=== PATIENT | male | born 1940 | race Caucasian/White ===

== ENCOUNTER 2020-09-10 10:12 | Emergency (ER) | payer MEDICARE, SELFPAY ==
--- NOTE | 2020-09-10 10:17 | ED.EAR ---
HPI - Ear Problem General Chief complaint: Ear Stated complaint: ear infection Time Seen by Provider: 09/10/20 10:26 Source: patient and RN notes reviewed Mode of arrival: ambulatory Limitations: no limitations History of Present Illness HPI Narrative: 80-year-old male presents with concern for intermittent bilateral ear pain. Denies current pain. Denies nasal congestion. Reports rhinorrhea. Denies any drainage from either ear, denies changes in hearing. MD Complaint: ear pain Related Data Home Medications Medication Instructions Recorded Confirmed indapamide 1.25 mg DAILY 09/10/20 09/10/20 lisinopril 20 mg DAILY 09/10/20 09/10/20 metoprolol succinate 50 mg PO DAILY 09/10/20 09/10/20 simvastatin 40 mg DAILY 09/10/20 09/10/20 Allergies Allergy/AdvReac Type Severity Reaction Status Date / Time codeine Allergy Mild LIPS SWELL Unverified 09/12/15 08:12 Sulfa (Sulfonamide Allergy Mild LIPS Unverified 09/12/15 08:12 Antibiotics) SWELLING tetracycline Allergy Unknown UNSURE OF Unverified 09/12/15 08:12 REACTION CYCLINES Allergy Mild Uncoded 09/12/15 08:12 Wheat Allergy Mild Uncoded 09/12/15 08:12 Review of Systems Review of Systems: Narrative: CONSTITUTIONAL: Denies malaise, chills, sweats, or fever. EYES: Denies visual changes, redness, or discharge. ENT: Reports rhinorrhea, bilateral intermittent otalgia. Denies congestion, sinus pain, and sore throat. CARDIOVASCULAR: Denies chest pain, palpitations, or edema. RESPIRATORY: Denies cough or dyspnea. GASTROINTESTINAL: Denies abdominal pain, nausea, vomiting, diarrhea SKIN: Denies rash or itching. MUSCULOSKELETAL: Denies myalgia. NEUROLOGIC: Denies headache. All systems reviewed & are unremarkable except as noted in HPI and below PMFSH Social History Social History Gender identity (if verbalized by the patient): Male Comments At time of signature, agree with nursing past medical, surgical, social and family history. There is no relevant family history pertinent to the presenting complaint Exam Narrative: Exam Narrative: GENERAL: Well-appearing, well-nourished, and in no acute distress. HEAD: Normocephalic EYES: PERRLA, conjunctivae clear ENT: Nares clear, turbinates erythematous, clear discharge. Mucous membranes moist. TM pearly gaytan with dull light reflex bilaterally; no tragal tenderness, no auditory canal erythema, edema, no drainage. Oropharynx not erythematous without lesions. Tonsils not enlarged and without exudate, no drooling, no hoarseness, no trismus, uvula midline. NECK: Supple. No lymphadenopathy CHEST: No respiratory distress, speaks in full sentences. HEART: Regular rate and rhythm. No murmur heard. SKIN: Warm, dry, no rash. NEURO: Alert and oriented x3. PSYCH: Normal mood and affect Course Course Emergency Course: Patient is aware of diagnosis, understands and agrees to treatment plan. Anticipatory guidance given. Patient agrees to follow-up as directed and is aware of reasons to seek care at the emergency department. Portions of this record may have been created with voice recognition software Vital Signs Vital signs: Vital Signs Temperature 98.9 F 09/10/20 10:26 Pulse Rate 97 09/10/20 10:26 Respiratory Rate 20 09/10/20 10:26 Blood Pressure 147/84 H 09/10/20 10:26 Pulse Oximetry 97 09/10/20 10:26 Temperature 98.9 F 09/10/20 10:26 Pulse Rate 97 09/10/20 10:26 Respiratory Rate 20 09/10/20 10:26 Blood Pressure 147/84 H 09/10/20 10:26 Pulse Oximetry 97 09/10/20 10:26 Reviewed. Medical Decision Making MDM Narrative Medical decision making narrative: Differential diagnosis considered: Gonsalez virus, strep pharyngitis, allergic rhinitis, upper respiratory tract infection, sinusitis, rhinosinusitis, nasopharyngitis. viral pharyngitis, otitis media, otitis externa, pneumonia, bronchitis, viral cough syndrome, viral syndrome, and influenza. Exam findings show no acute concerns or changes; patient is no
[2020-09-10 10:26] VITALS: BP 147/84; PULSE 97; RESP 20; TEMP 37.2; O2SAT 97
== END 2020-09-10 10:41 | disposition home or self-care (01) ==
PROVIDERS: Emergency Provider Nurse Practitioner; PCP Family Medicine
DX: H65.193 Other acute nonsuppurative otitis media, bilateral (principal); I11.0 Hypertensive heart disease with heart failure; I50.9 Heart failure, unspecified; E78.00 Pure hypercholesterolemia, unspecified
CPT/HCPCS: 99211; G0463

== ENCOUNTER 2021-01-01 15:55 | Observation (INO) | payer MEDICARE, SELFPAY ==
[2021-01-01] VITALS (22 sets, daily range): BP systolic 107–141; BP diastolic 78–123; PULSE 76–153; RESP 18–30; TEMP 36.6; O2SAT 93–99
--- NOTE | ~2021-01-01 | XR_ITS ---
EXAMINATION: XR chest 2V DATE: 01/01/2021 16:15 INDICATION: Shortness of breath. TECHNIQUE: Frontal and lateral views of the chest were obtained. COMPARISON: Chest 2 views 07/07/2006, chest CT 04/14/2005 FINDINGS: There is symmetric scarring at the lung apices. A calcified left lung nodule is consistent with old granulomatous disease. There is a small right pleural effusion. No pneumothorax. The heart s ize is normal. IMPRESSION: 1. Small right pleural effusion. 2. Chronic scarring at the lung apices. Reviewed, dictated and finalized at location A.
--- NOTE | 2021-01-01 15:57 | ECG_ITS ---
Measurements Intervals [place] Rate: 153 P: LA: 0 QRS: 23 QRSD: 81 T: 32 QT: 268 QTc: 428 Interpretive Statements ATRIAL FIBRILLATION WITH RAPID VENTRICULAR RESPONSE VENTRICULAR PREMATURE COMPLEX NONSPECIFIC T-WAVE ABNORMALITY- INFERIOR LEADS ABNORMAL ECG Electronically Signed On 01-01-2021 19:13:37 CDT by Jass Tran D.O.
[2021-01-01 16:43] LABS: Basophils Percent Auto 0.5 % (0.2-1.2); Eosinophils Percent Auto 0.5 % (0-4.4); Hematocrit 43.1 % (42.0-52.0); Hemoglobin 14.3 g/dL (14.0-18.0); Immature Granulocyte Absolute 0.01 K/mm3 (0.00-0.031); Immature Granulocyte Percent A 0.2 % (0-0.5); Lymphocytes Absolute Auto 1.28 K/mm3 (0.9-3.2); Mean Corpuscular HGB Conc 33.2 g/dl (32-36); Mean Corpuscular Hemoglobin 30.4 pg (26-34); Mean Corpuscular Volume 91.5 fl (80-100); Mean Platelet Volume 12.3 fl (7.4-10.4); Monocytes Absolute Auto 0.4 K/mm3 (0.1-0.6); Monocytes Percent Auto 7.1 % (2.6-8.5); Neutrophils Absolute Auto 4.1 K/mm3 (1.3-6.7); Neutrophils Percent Auto 69.7 % (45.5-73.1); Platelet Count Result 139 k/mm3 (150-375); Red Blood Count 4.71 M/mm3 (4.6-6.20); Red Cell Distribution Width 13.4 % (11.5-14.5); White Blood Count 5.8 K/mm3 (4.5-10.0)
[2021-01-01 16:52] LABS: INR 1.1
[2021-01-01 16:53] LABS: Partial Thromboplastin Time 29.4 SECONDS (22.3-36.8)
[2021-01-01] MEDS: dilTIAZem HCl INJ 25 MG/5 ML VIAL IV PUSH (16:53)
[2021-01-01 16:55] LABS: Anion Gap 12 mmol/L (8-16); Blood Urea Nitrogen 16 mg/dL (9-20); Calcium 9.7 mg/dL (8.4-10.2); Carbon Dioxide 21 mmol/L (22-30); Chloride 106 mmol/L (98-107); Estimated CRCL calculation 69 ml/min; Estimated Glomerular Filt Rate > 60; Glucose 121 mg/dL (75-110); Potassium 4.1 mmol/L (3.4-5.0); Sodium 139 mmol/L (137-145)
--- NOTE | 2021-01-01 16:57 | ED.GENADULT ---
HPI - General Adult General Chief complaint: Chest Pain Stated complaint: palpitations Time Seen by Provider: 01/01/21 16:18 Source: patient History of Present Illness HPI narrative: Patient is a 80 y/o male complaining of mild SOB for 2 weeks. He state that his symptom is worsened by exertion. He has a chronic cough due to smoking. He has no chest pain or fever. He also feels tired. He check his pulse with home pulse ox and found that his heart is fast. He was instructed by PCP to come to ED for evaluation. Related Data Allergies Allergy/AdvReac Type Severity Reaction Status Date / Time codeine Allergy Unknown Verified 01/01/21 16:52 Sulfa (Sulfonamide Allergy Unknown Verified 01/01/21 16:52 Antibiotics) Review of Systems Constitutional: Constitutional: Denies chills, Reports fatigue, Denies fever(s), Denies headache(s) and Reports weakness Eyes: Eyes: Denies blurry vision ENT: Denies headache(s) and Denies neck pain Cardiovascular: Cardiovascular: Denies chest pain and Reports dyspnea Respiratory: Respiratory: Denies cough and Denies dyspnea Gastrointestinal: Gastrointestinal: Denies abdominal pain, Denies diarrhea, Denies nausea and Denies vomiting Genitourinary: Genitourinary: Denies hematuria and Denies dysuria Musculoskeletal: Musculoskeletal: Denies back pain and Denies neck pain Neurologic: Denies headache(s) and Denies weakness Exam Const: General: no acute distress and well developed Orientation/consciousness: oriented to person, oriented to place, oriented to time and patient oriented x3 HENMT: Head: normocephalic Ears: external ears normal General nose exam: Normal external nose present Eyes: General: appearance normal, both eyes and all related structures Conjunctivae: conjunctivae normal Neck: Neck: normal visual inspection and full ROM Chest: Chest palpation & inspection: normal inspection of the chest and no tenderness Resp: Effort & Inspection: normal respiratory effort Auscultation: clear to auscultation bilaterally Cardio: Rate: tachycardic Rhythm: abnormal rhythm irregularly irregular GI: GI Palp: No abdominal tenderness and Yes Soft to palpation Skin: General skin exam: normal color and turgor normal Neuro: General: oriented to person, oriented to place, oriented to time and patient oriented x3 Cognition (Neuro): normal cognition Extrem: General: normal to inspection, full ROM and no pedal edema Psych: Appearance: grossly normal Mental Status: mental status grossly normal Affect: normal affect Course Consultations Consultation #1: Discussed with MARJORIE Tim, who agrees to admit. Date: 01/01/21 Time: 18:16 Consultation #2: Discussed with Dr. Ramon, who agrees to consult. She recommends Lovenox 1mg/kg x 1 dose Date: 01/01/21 Time: 19:20 Vital Signs Vital signs: Vital Signs Temperature 36.6 C 01/01/21 16:06 Pulse Rate 153 H 01/01/21 16:06 Respiratory Rate 18 01/01/21 16:06 Blood Pressure 141/103 H 01/01/21 16:06 Pulse Oximetry 98 01/01/21 16:06 Temperature 36.6 C 01/01/21 16:06 Pulse Rate 89 01/01/21 19:41 Respiratory Rate 28 H 01/01/21 19:41 Blood Pressure 122/80 01/01/21 19:41 Pulse Oximetry 93 01/01/21 19:41 Medical Decision Making Vital Signs Vital Signs: Vital Signs Temperature 36.6 C 01/01/21 16:06 Pulse Rate 153 H 01/01/21 16:06 Respiratory Rate 18 01/01/21 16:06 Blood Pressure 141/103 H 01/01/21 16:06 Pulse Oximetry 98 01/01/21 16:06 Temperature 36.6 C 01/01/21 16:06 Pulse Rate 89 01/01/21 19:41 Respiratory Rate 28 H 01/01/21 19:41 Blood Pressure 122/80 01/01/21 19:41 Pulse Oximetry 93 01/01/21 19:41 Lab Data Result diagrams: 01/01/21 16:34 01/01/21 16:34 Labs: Lab Results 01/01/21 01/01/21 01/01/21 Range/Units 16:34 16:34 16:34 WBC 5.8 (4.5-10.0) K/mm3 RBC 4.71 (4.6-6.20) M/mm3 Hgb 14.3 (14.0-18.0) g/dL Hct 43.1 (42.0
[2021-01-01 17:08] LABS: Troponin I 0.014 ng/mL (0.000-0.034)
[2021-01-01] MEDS: ENOXAPARIN 80 MG/0.8 ML SYRINGE SUB-Q (19:34)
[2021-01-01 19:40] LABS: NT Pro B Type Natriuretic Pept 2680 pg/mL (5-100); Troponin I 0.018 ng/mL (0.000-0.034)
[2021-01-01] MEDS: FUROSEMIDE INJ 40 MG/4 ML VIAL IV PUSH (19:59)
--- NOTE | 2021-01-01 20:20 | ADMGEN ---
This patient, Lm Jimenez, was admitted to IMU Room 202-01 at 2015. Patient/family oriented to hospital policies and general routines including ID bracelet, bed and alarms, visiting hours, pain management, procedures, bathroom and other care routines, personal items, smoking policy, room service/diet, and visiting hours. Information on how to activate the Rapid Response Team has been discussed. Patient/Family are encouraged to report perceived risks to care and to ask questions if they do not understand what they are told or what they should do. Patient walked to restroom with 1 person assist. Gait steady.
[2021-01-02] VITALS (15 sets, daily range): BP systolic 97–139; BP diastolic 65–97; PULSE 77–130; RESP 18–20; TEMP 36.3–36.7; O2SAT 95–99
--- NOTE | 2021-01-02 | ECHO_ITS ---
Patient Info Name: Lm Jimenez Age: 80 years : 1940 Gender: Male Ht: 71 in Wt: 180 lbs BSA: 2.03 m2 HR: 111 bpm BP: 122 / 65 mmHg Heart Rhythm: Atrial Fibrillation, Tachycardia Technical Quality: Good Exam Date: 01/02/2021 1:10 PM Exam Location: [facility] Patient Status: Outpatient Admit Date: 01/01/2021 Staff Ordering Physician: Meeta Lindo NP Outside Plant Cable Engineer: Tyree Retana, KRYSTLE, RT Attending Provider: Ozzie Nguyen MD Referring Physician: Guicho NAYAK; Exam Type: CA echo doppler color flow Study Info Indications R06.02 - Shortness of breath Complete two-dimensional, color flow and Doppler transthoracic echocardiogram is performed. Strain analysis performed. Summary 1. Complete two-dimensional, color flow and Doppler transthoracic echocardiogram is performed. 2. Left ventricular systolic function is moderately reduced, estimated at 40-45%. 3. There is no increased left ventricular wall thickness. 4. The left ventricular diastolic function is indeterminate. 5. Global longitudinal strain is moderately elevated at -9 %. 6. Left atrial chamber dimension is moderately enlarged. 7. Right atrial chamber dimension is severely enlarged. 8. There is moderate mitral valve regurgitation. 9. There is mild to moderate tricuspid valve regurgitation. 10. No pulmonary hypertension, estimated pulmonary arterial systolic pressure is 29 mmHg. 11. Normal inferior vena cava with >50% collapse upon inspiration consistent with normal right atrial pressure, 5 mmHg. 12. There is small pericardial effusion. Left Ventricle Left ventricular chamber dimension is normal. Left ventricular systolic function is moderately reduced, estimated at 40-45%. There is no increased left ventricular wall thickness. The left ventricular diastolic function is indeterminate. Global longitudinal strain is moderately elevated at -9 %. Right Ventricle Right ventricular chamber dimension is normal. Right ventricular systolic function is normal. Left Atria Left atrial chamber dimension is moderately enlarged. Right Atria Right atrial chamber dimension is severely enlarged. Aortic Valve The aortic valve is trileaflet. There is mild aortic valve sclerosis. There is no aortic valve stenosis. There is trace aortic valve regurgitation. Pulmonic Valve The pulmonic valve is not well visualized. There is trace pulmonic regurgitation. Mitral Valve The mitral valve has thickened leaflets. There is moderate mitral valve regurgitation. The mitral valve annulus is mildly calcified. Tricuspid Valve The tricuspid valve leaflets are normal. There is mild to moderate tricuspid valve regurgitation. No pulmonary hypertension, estimated pulmonary arterial systolic pressure is 29 mmHg. Pericardium/Pleural The pericardium appears normal. There is small pericardial effusion. Inferior Vena Cava Normal inferior vena cava with >50% collapse upon inspiration consistent with normal right atrial pressure, 5 mmHg. Aorta The aortic root size at the sinus of Valsalva is normal. Left Ventricular Outflow Tract Name Value Normal LVOT 2D LVOT Diameter 2.1 cm LVOT Doppler
--- NOTE | 2021-01-02 | PM.IMHP ---
H&P: HPI History of Present Illness Date/Time: 01/01/21 [id number] this is a 80-year-old male patient who stated that he had an episode of atrial fibrillation years ago after an he had pneumonia. The patient stated he was given some medication and he converted back to sinus rhythm. He did not notice irregular rhythm since then. He stated he may have gone in and out of it but it has never bothered him. 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 The patient stated that he has been short of breath for 2 weeks. Mostly with exertion. He has a chronic cough. He has no complaints of any chest pain or fever. He just feels tired. The patient checked his pulse ox at home and found that his heart rate was fast. He was instructed by his primary care doctor to come to the emergency room. The patient was found to be in AFib with RVR. His heart rate initially was in the 150s. He was given IV Cardizem and then started on a drip. His heart rate is now in the 80s he denies any chest pain or shortness breath at this time. The patient stated that he has not slept very well the last couple nights. The patient is very irritable at this time and wishes that I not ask him some any questions. He suggested that I retrieve my information from what they have already acquired. His BNP is 2680. The patient does not remember having an echo in the past. He does not recall seeing and finish machine tender either. Patient stated that he does take medication for blood pressure but does not want to take any medicine tonight. The patient stated that he would like to leave by tomorrow. I explained that the finish machine tender has been consulted in that I prefer that he see the finish machine tender prior to exiting the hospital. I also explained to the patient if he left that he would be signing out against medical advice.. Right chronic scarring at the lung apices. The patient was given aspirin Cardizem Lovenox and Lasix in the emergency room. Patient is being admitted to observation status as on the date of service of 01/01/2021. Chief Complaint: sob with exertion Review of Systems Review of Systems: All systems reviewed & are unremarkable except as noted in HPI and below Constitutional: Constitutional: Reports as per HPI and Reports no additional constitutional complaints Eyes: Eyes: Reports as per HPI and Reports no additional eye complaints ENT: Reports system reviewed and no additional complaints, except as documented and Reports Normal hearing present Cardiovascular: Cardiovascular: Reports no additional cardiovascular complaints Respiratory: Respiratory: Reports no additional respiratory complaints and Reports no additional respiratory complaints Gastrointestinal: Gastrointestinal: Reports as per HPI and Reports no additional gastrointestinal complaints Musculoskeletal: Musculoskeletal: Reports no additional musculoskeletal complaints Integumentary/Breasts: Skin/Breast: Reports system reviewed and no additional complaints, except as docu and Reports as per HPI Neurologic: Reports system reviewed and no additional complaints, except as documented, Reports as per HPI and Reports Normal hearing present Psychiatric: Psychiatric: Reports no additional psychiatric complaints and Reports as per HPI Endocrine: Endocrine: Reports no additional endocrine complaints Hematologic/Lymphatic: Hematologic/Lymphatic: Reports no additional hematologic/lymphatic complaints Allergic/Immunologic: Allergic/Immunologic: Reports no additional allergic/immunologic complaints [facility] Past Medical History Medical History (Updated 01/02/21 @ 00:09 by Meeta Lindo NP) Blindness of right eye Colon cancer Hyperlipidemia Hypertension Surgical History Surgical History (Updated 01/02/21 @ 00:10 by Meeta Lindo NP) H/O colectomy History of appendectomy History of tonsillectomy Family History Family History Mother Cancer Father Cirrhosis Alcoh
--- NOTE | 2021-01-02 03:09 | PC.NURSE ---
PATIENT CALLED OUT C/O PAIN IN HIS PENIS, AND NOT BEING ABLE TO URINATE. STATING THAT THE LAST FEW TIMES HE TRIED TO GO, HE WAS UNABLE TO. PATIENT ALSO STATED THAT HE FEELS LIKE HE STILL NEEDS TO GO. BLADDER SCAN SHOWED [phone] VASQUES IS AWARE. ORDERS CHARTED.
[2021-01-02] MEDS: ENOXAPARIN 80 MG/0.8 ML SYRINGE SUB-Q (09:31)
--- NOTE | 2021-01-02 09:51 | PM.CNCAR ---
Assessment and Plan Assessment and plan (1) Atrial fibrillation with RVR: Code(s): I48.91 - Unspecified atrial fibrillation Status: Acute Assessment and Plan: Symptomatic atrial fibrillation with rapid ventricular response for at least the past couple weeks progressive fatigue, shortness of breath and mild heart failure symptoms. Heart rate better controlled on intravenous diltiazem. Transition off to oral metoprolol 100 mg b.i.d. then discontinue diltiazem infusion. Heart rate control strategy preferred by the patient. Systemic anticoagulation for CHADS2 Vasc score of 3, (4 if LV dysfunction identified by 2D echocardiogram). Discussed the risks, benefits, and alternatives with regards to systemic anticoagulation for embolic stroke risk reduction in atrial fibrillation. Discussed relative risks and benefits with SANDRA guided cardioversion to exclude intracardiac thrombus and conversion to sinus rhythm. If patient tolerates atrial fibrillation with controlled ventricular response on medical therapy he wishes to defer cardioversion attempts at this time. I explained the importance of establishing to heart rate control and tolerance of oral medical therapy prior to discharge. I also need to clarify his LV function by echocardiogram prior to discharge. If significant LV dysfunction identified explained my preference for SANDRA guided cardioversion to restore sinus rhythm to allow greater likelihood for recovery of LV function. Further recommendations to follow in this regard. Patient verbalized understanding. All questions answered to his satisfaction. Discussed anticoagulation options including embolic stroke risk reduction in bleeding risk. Will discontinue aspirin upon initiation of Eliquis 5 mg twice daily. 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 Check TSH. Disposition depending upon heart rate control, clinical status, medication tolerance and results of 2D echocardiogram. Explained all every effort as is safe for discharge later today will be pursued it is likely he may require overnight observation to assure adequate heart rate control and medication tolerance. He agreed with this discussion. (2) CHF (congestive heart failure): Qualifiers: Heart failure chronicity: unspecified Heart failure type: unspecified Qualified Code(s): I50.9 - Heart failure, unspecified Code(s): I50.9 - Heart failure, unspecified Status: Acute Assessment and Plan: Compensated at present. 2D echocardiogram pending. Recommendation to follow after review. No evidence for myocardial ischemia, ruled out for CA negative serial troponins. (3) Hypertension: Code(s): I10 - Essential (primary) hypertension Status: Chronic Assessment and Plan: Controlled. Continue lisinopril. (4) Hyperlipidemia: Code(s): E78.5 - Hyperlipidemia, unspecified Status: Chronic Assessment and Plan: Continue simvastatin 40 mg daily. History of Present Illness History of Present Illness Consult date/time: Date of service: 01/02/21 09:51 Cardiology consultation at the request of Meeta Lindo of the [facility] service for our opinion regarding atrial fibrillation with rapid ventricular response. Requesting physician: Meeta Lindo NP Consult reason: atrial fibrillation Reason For Visit: A Fib with RVR Narrative: Patient is a pleasant 80-year-old male with a past medical history significant for hypertension, dyslipidemia, and remote atrial fibrillation many years in conjunction with pneumonia who presents the emergency department at the request of his primary care physician to tachycardia and fatigue. Patient reports 2 weeks of progressive fatigue and exertional dyspnea, orthopnea and mild lower extremity edema what was discovered during a virtual visit with his PCP on pulse oximetry is heart rate was in the 150s. He was then immediately referred to the emergency department for evaluation
--- NOTE | 2021-01-02 10:15 | PM.IMPN ---
Progress Note: A&P Assessment and Plan (1) Atrial fibrillation with RVR: Code(s): I48.91 - Unspecified atrial fibrillation Status: Acute Assessment and Plan: The patient's [id number]-Upst score is 4 so anticoagulation started. Robert started on Diltiazem gtt. Cardiology consulted. HR has become better controlled. Plan to transition to oral medications. Check TSH (2) Hypertension: Code(s): I10 - Essential (primary) hypertension Status: Chronic Assessment and Plan: Patient's blood pressure was reviewed on 01/02 Blood pressure remains well controlled with SBP running 110-140. Will continue current medications. The patient's Topril XL and lisinopril on hold. Monitor closely as we transtioned him to oral medications. Resume Lisinopril when able (3) CHF (congestive heart failure): Qualifiers: Heart failure chronicity: unspecified Heart failure type: unspecified Qualified Code(s): I50.9 - Heart failure, unspecified Code(s): I50.9 - Heart failure, unspecified Status: Acute Assessment and Plan: CXR showing small right pleural effusion with BNP 2680. Lasix IV given once with good UOP and symptomatic improvement. Echo ordered. He comes in on Toprol XL and lisinopril. Will hold these medications since he will be transtioned from Diltiazem IV to metoprolol oral. Hold on repeating Lasix at this time. Follow up on Echo report. (4) Hyperlipidemia: Code(s): E78.5 - Hyperlipidemia, unspecified Status: Chronic Assessment and Plan: Will resume simvastatin. Check LFTs and lipid panel in the morning. (5) Urine retention: Code(s): R33.9 - Retention of urine, unspecified Status: Acute Assessment and Plan: Patient had to have a May placed due to difficulty voiding. [place] related to enlarged prostate. Will add Flomax and do a voiding trial in the morning. (6) DVT prophylaxis: Code(s): Z29.9 - Encounter for prophylactic measures, unspecified Status: Acute Assessment and Plan: Lovenox Subjective Date/time seen: 01/02/21 10:15 Interval history: 80yo male with HTN and hx of AFib when he had PNA here for SOB and fatigue. Robert denies any CP but has been having constant epigastric pain. He has also been having trouble sleeping with SOB when lying supine. Feels better today. Slept well. Has been having trouble starting with urination, poor urine stream and dribbling for the past year. No dysuria or hematuria. His episode of AFib was about 4-5 years ago. He has not been on anticoagulation. No hx of GI bleeding. Exam Narrative: Exam Narrative: AF 97.4 139/92 95 18 95% ra Gen - NARD lying semi-recumbent in bed Chest - few basilar rhonchi. nml RR CV - irregularly irregular with 2/6 diastolic murmur at the apex; Tele showing AFib with controlled rate Abd - Soft, NT/ND, Positive BS - May secured draining clear yellow urine Ext - trace pedal edema Psych - Nml mood and affect Skin - Warm and dry Objective Data Vital Signs Vital Signs: Vital Signs - 24 hr 01/01/21 16:06 01/01/21 16:53 01/01/21 17:00 Temperature 97.8 F Pulse Rate 153 H 149 H 95 Respiratory Rate 18 21 H Blood Pressure 141/103 H 138/123 H Pulse Oximetry 98 93 01/01/21 17:01 01/01/21 17:22 01/01/21 17:31 Temperature Pulse Rate 93 84 76 Respiratory Rate 21 H 20 23 H Blood Pressure 125/87 122/88 Pulse Oximetry 94 93 93 01/01/21 17:32 01/01/21 17:45 01/01/21 17:46 Temperature Pulse Rate 91 95 89 Respiratory Rate 27 H 30 H 20 Blood Pressure 107/94 H Pulse Oximetry 94 98 97 01/01/21 17:47 01/01/21 17:53 01/01/21 18:08 Temperature Pulse Rate 96 89 87 Respiratory Rate 20 22 H Blood Pressure Pulse Oximetry 94 94 01/01/21 18:11 01/01/21 18:21 01/01/21 18:30 Temperature Pulse Rate 89 89 Respiratory Rate 22 H 20 Blood Pressure Pulse Oximetry 98 96 94
[2021-01-02] MEDS: SIMVASTATIN 20 MG TABLET 40 MG PO (11:00)
[2021-01-02] MEDS: ASPIRIN 81 MG ENTERIC TABLET PO (11:01)
[2021-01-02] MEDS: METOPROLOL TARTRATE 50 MG TAB 100 MG PO (12:33)
[2021-01-02] MEDS: TAMSULOSIN HCL 0.4 MG CAPSULE PO (16:14)
[2021-01-02] MEDS: APIXABAN 5 MG TABLET PO (21:30)
[2021-01-02] MEDS: METOPROLOL TARTRATE 50 MG TAB 150 MG PO (21:30)
[2021-01-03] VITALS (20 sets, daily range): BP systolic 101–138; BP diastolic 65–119; PULSE 66–121; RESP 14–23; TEMP 36.6–36.7; O2SAT 93–99
[2021-01-03 05:33] LABS: Basophils Percent Auto 0.5 % (0.2-1.2); Eosinophils Absolute Auto 0.1 K/mm3 (0-0.3); Eosinophils Percent Auto 1.6 % (0-4.4); Hematocrit 40.1 % (42.0-52.0); Hemoglobin 13.2 g/dL (14.0-18.0); Immature Granulocyte Absolute 0.01 K/mm3 (0.00-0.031); Immature Granulocyte Percent A 0.2 % (0-0.5); Lymphocytes Absolute Auto 1.33 K/mm3 (0.9-3.2); Mean Corpuscular HGB Conc 32.9 g/dl (32-36); Mean Corpuscular Hemoglobin 30.2 pg (26-34); Mean Corpuscular Volume 91.8 fl (80-100); Mean Platelet Volume 12.9 fl (7.4-10.4); Monocytes Absolute Auto 0.5 K/mm3 (0.1-0.6); Monocytes Percent Auto 11.7 % (2.6-8.5); Neutrophils Absolute Auto 2.5 K/mm3 (1.3-6.7); Platelet Count Result 122 k/mm3 (150-375); Red Blood Count 4.37 M/mm3 (4.6-6.20); Red Cell Distribution Width 13.3 % (11.5-14.5); White Blood Count 4.4 K/mm3 (4.5-10.0)
[2021-01-03 07:24] LABS: Alanine Aminotransferase 15 U/L (4-50); Albumin Level 3.5 g/dL (3.5-5.1); Alkaline Phosphatase 66 U/L (38-126); Anion Gap 9 mmol/L (8-16); Aspartate Amino Transferase 26 U/L (17-59); Bilirubin,Total 0.8 mg/dL (0.2-1.3); Blood Urea Nitrogen 17 mg/dL (9-20); Carbon Dioxide 24 mmol/L (22-30); Chloride 104 mmol/L (98-107); Cholesterol 105 mg/dL (0-200); Estimated CRCL calculation 69 ml/min; Estimated Glomerular Filt Rate > 60; Glucose 101 mg/dL (75-110); HDL Direct 33 mg/dL; Magnesium 1.6 mg/dL (1.6-2.3); Phosphorus 3.5 mg/dL (2.5-4.5); Potassium 3.5 mmol/L (3.4-5.0); Sodium 137 mmol/L (137-145); Triglycerides 48 mg/dL (<150)
[2021-01-03 07:35] LABS: LDL Cholesterol Direct 53 mg/dL
[2021-01-03 08:34] LABS: Folic Acid > 20.0 ng/mL (2.76->20)
[2021-01-03] MEDS: TAMSULOSIN HCL 0.4 MG CAPSULE PO (09:52)
[2021-01-03] MEDS: APIXABAN 5 MG TABLET PO (09:52)
[2021-01-03] MEDS: SIMVASTATIN 20 MG TABLET 40 MG PO (09:52)
[2021-01-03] MEDS: METOPROLOL TARTRATE 50 MG TAB 150 MG PO (09:52)
--- NOTE | 2021-01-03 11:58 | WPDMODSED ---
Moderate Sedation Note-Pt Data Patient Data Diagnosis: Atrial fibrillation with rapid ventricular response Present Complaint: None Procedure to be performed/Plan: Transesophageal echocardiogram guided elective electrical cardioversion Allergies Allergy/AdvReac Type Severity Reaction Status Date / Time codeine Allergy Unknown Verified 01/01/21 16:52 Sulfa (Sulfonamide Allergy Unknown Verified 01/01/21 16:52 Antibiotics) Home Medications Medication Instructions Recorded Confirmed Type aspirin [Adult Low Dose Aspirin] 81 mg PO DAILY 01/01/21 01/01/21 History cetirizine [Zyrtec] 10 mg PO DAILY 01/01/21 01/01/21 History lisinopril 20 mg PO DAILY 01/01/21 01/01/21 History metoprolol succinate 50 mg PO DAILY 01/01/21 01/01/21 History polyethylene glycol 3350 [Miralax] 17 g PO DAILY 01/01/21 01/01/21 History simvastatin 40 mg PO DAILY 01/01/21 01/01/21 History Current Medications: Active Medications Apixaban (Apixaban 5 Mg Tablet) 5 mg PO Q12HR [facility] Last Admin: 01/03/21 09:52 Dose: 5 mg Documented by: Aspirin (Aspirin 81 Mg Enteric Tablet) 81 mg PO DAILY [facility] Stop: 02/01/21 10:16 Last Admin: 01/02/21 11:01 Dose: 81 mg Documented by: Metoprolol Tartrate (Metoprolol Tartrate 50 Mg Tab) 150 mg PO Q12HR [facility] Last Admin: 01/03/21 09:52 Dose: 150 mg Documented by: Polyethylene Glycol (Polyethylene Glycol 3350 17 Gm Powd.Pack) 17 gm PO DAILY [facility] Last Admin: 01/03/21 11:44 Dose: Not Given Documented by: Simvastatin (Simvastatin 20 Mg Tablet) 40 mg PO DAILY [facility] Last Admin: 01/03/21 09:52 Dose: 40 mg Documented by: Tamsulosin HCl (Tamsulosin Hcl 0.4 Mg Capsule) 0.4 mg PO QAM [facility] Last Admin: 01/03/21 09:52 Dose: 0.4 mg Documented by: Sedation/Anesthesia: No previous sedation/anesthesia problems (including family history). [facility] Past Medical History Medical History Blindness of right eye Colon cancer Hyperlipidemia Hypertension Surgical History Surgical History H/O colectomy History of appendectomy History of tonsillectomy Family History Family History Mother Cancer Father Cirrhosis Alcohol abuse Social History Social History Social History: The patient is semi retired. He is and lives with his . 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 He is listed as a full code. The patient denies any alcohol. He states that he is a former smoker. Smoking status: Former smoker Additional smoking assessment comments: 5-6 years ago Alcohol intake: current Substance use: current Substance use type: does not use Gender identity (if verbalized by the patient): Male Spiritual care concerns: No Mod Sed Physical Exam Physical Exam Pre Procedural Exam: Normal: Appearance, Eyes, Ears, Nose, Neck (Supple, normal range of motion), Throat (Posterior hypopharynx clear, nonerythematous), Airway (Normal anatomy, no obstruction), Lungs (DIMINISHED BREATH SOUNDS DIFFUSELY, BASILAR CRACKLES), Heart Size, Neuro Exam, Abdomen, Liver, Kidneys, Extremities and Skin and Variation: Heart Rate (Tachycardic) and Heart Rhythm (Irregularly irregular rate and rhythm) Hours since solid foods: 12 Hours since liquid intake: 12 Internal Medicine - PN: Obj Da Vital Signs Vital Signs: Vital Signs - 24 hr 01/02/21 12:00 01/02/21 14:00 01/02/21 16:00 Temperature 36.6 C 36.6 C Pulse Rate 94 105 H 117 H Respiratory Rate 20 18 Blood Pressure 133/81 122/97 H Pulse Oximetry 95 96 01/02/21 18:00 01/02/21 20:00 01/02/21 21:30 Temperature 36.7 C Pulse Rate 130 H 112 H 110 H Respiratory Rate 18 Blood Pressure 114/76 Pulse Oximetry 99 01/02/21 22:00 01/02/21 23:47 01/03/21 00:00 Temperature 36.5 C Pulse Rate 86 88 88 Respiratory Rate 20 Blood Pressur
--- NOTE | 2021-01-03 13:17 | ECG_ITS ---
Measurements Intervals [place] Rate: 72 P: [place]: 0 QRS: 8 QRSD: 87 T: 34 QT: 411 QTc: 450 Interpretive Statements SINUS RHYTHM WITH SINUS ARRHYTHMIA SHORT UT INTERVAL ATRIAL AND VENTRICULAR PREMATURE COMPLEXES DELAYED PRECORDIAL R/S TRANSITION NONSPECIFIC T-WAVE ABNORMALITY- ANT/INF LEADS BASELINE ARTIFACT- II, III ABNORMAL ECG Electronically Signed On 01-03-2021 13:57:14 CDT by Jass Tran D.O.
--- NOTE | 2021-01-03 13:17 | WPDTECDV ---
SANDRA with Cardioversion Date of procedure: 01/03/21 Procedure Type: Transesophageal echocardiogram guided elective electrical cardioversion Diagnosis: Atrial fibrillation with rapid ventricular response Indications: Atrial fibrillation with rapid ventricular response Description of Procedure: Brief history present illness: Patient is a pleasant 80-year-old male with a past medical history significant for hypertension, dyslipidemia, paroxysmal atrial fibrillation who presented with complaints of fatigue, shortness of breath found to be in atrial fibrillation with rapid ventricular response as well as moderate LV dysfunction ejection fraction 40-45% by 2D echocardiogram but with refractory atrial fibrillation to medical therapy subsequently referred for transesophageal echocardiogram-guided elective electrical cardioversion in attempt to restore sinus rhythm. Procedure in detail: After verbal and written informed consent was obtained the patient risks, benefits, and alternatives explained in detail the patient agreed to proceed with the plan of care as outlined above. Patient was evaluated at bedside in the [facility] procedure room. On examination, neck was supple with normal range of motion, no restrictions to opening of the oral cavity, jaw angle and posterior hypopharynx was clear. Lungs were clear to auscultation. Patient was placed in appropriate 30 to 45 degree angle in a supine, slight left lateral decubitus position. Patient was monitored throughout the study with telemetry, oxygen saturation, end-tidal CO2 monitoring, blood pressure, heart rate, and respirations. Anterior and posterior defibrillator pads placed in the appropriate positions. The posterior hypopharynx was then locally anesthetized using repeated administration of Hurricaine spray as well as gargled viscous lidocaine. After local anesthetic of the posterior hypopharynx was achieved and the oral bite block placed, moderate sedation was administered. Through the oral bite block, the transesophageal echocardiogram probe was advanced into the posterior hypopharynx and into the esophagus easily and without complication. Multiple, multiplanar echocardiographic images were obtained in multiple standard re-projections. Pulsed wave, continuous-wave, and color-flow Doppler were utilized in conjunction with this study. At the conclusion of the study, the transesophageal echocardiogram probe was removed easily and without complication. Patient tolerated the procedure well without difficulty. Patient was in atrial fibrillation throughout the study. Sedation: Moderate Sedation/Anesthesia administration: Patient denied previous intolerance or complications with anesthesia/sedation. Please see sedation note for documentation of the pre-procedure physical examination. As noted above, after adequate local anesthesia of the posterior hypopharynx was achieved, a total of 3mg intravenous Versed and a total of 50 mcg intravenous Fentanyl in multiple divided doses was utilized for moderate sedation. Sedation start time was 1257 and end time was 1316 for a total of 19 minutes [id number] intra-procedure time. Sedation was administered by a qualified observer Yoli Box RN under my supervision with intra-procedure [id number] observation and management throughout the entirety of the procedure. There were no other issues or complications and patient tolerated the procedure well and sedation protocol well and I was present for the entirety. Findings: LEFT VENTRICLE: Normal size with moderate to severe LV systolic dysfunction ejection fraction visually estimated 30-35%.. RIGHT VENTRICLE: Size and systolic function within normal limits. LEFT ATRIUM: Moderate enlargement. Spontaneous contrast noted. RIGHT ATRIUM: Severe enlargement. Spontaneous contrast noted. INTERATRIAL SEPTUM: Interatrial septum is anatomically normal without evidence of shunt with color-flow Doppler nor with inj
--- NOTE | 2021-01-03 13:40 | SUR.PHASEII ---
May Catheter removed post SANDRA/CV per Dr. Donovan's request.
--- NOTE | 2021-01-03 14:51 | PM.DS ---
DS: Admitting Diagnosis Admitting Diagnosis Admitting Diagnosis: Shortness of breath DS: Discharge Diagnosis Discharge Diagnosis (1) Atrial fibrillation with RVR: Code(s): I48.91 - Unspecified atrial fibrillation Status: Acute (2) Hypertension: Code(s): I10 - Essential (primary) hypertension Status: Chronic (3) CHF (congestive heart failure): Qualifiers: Heart failure chronicity: unspecified Heart failure type: unspecified Qualified Code(s): I50.9 - Heart failure, unspecified Code(s): I50.9 - Heart failure, unspecified Status: Acute (4) Hyperlipidemia: Code(s): E78.5 - Hyperlipidemia, unspecified Status: Chronic (5) Urine retention: Code(s): R33.9 - Retention of urine, unspecified Status: Acute DS: Summary Hospital Course Reason for hospitalization: 80yo male with HTN and hx of AFib when he had PNA here for SOB and fatigue and found to have AFib with RVR. Please see H&P for details. Hospital Course: Patient presented with 2 week history of shortness of breath. He was found to have atrial fibrillation with RVR. The patient's [id number] score is 4 so anticoagulation started. Patient was started on Diltiazem gtt. Cardiology consulted. HR became better controlled and he was transitioned to oral medications. TSH normal. Echocardiogram showed EF of 40-45% and moderate MR and moderate TR. Patient was on metoprolol but hardly still poorly controlled. He agreed to transesophageal echocardiogram and possible cardioversion. SANDRA did not reveal thrombus but EF 30-35%. Patient underwent cardioversion that was successful. Please see report for details. Blood pressure remained well controlled with SBP running 110-140. Patietn treated with metoprolol and lisinopril was held. CXR on admission showing small right pleural effusion with BNP 2680. Lasix IV given once with good UOP and symptomatic improvement. LFTs were normal. Lipid panel showing TC 105, LDL 53, HDL 33 and TG 48. We continued his simvastatin. Patient has been having urinary symptoms at home. He had difficulty urinating here and had to have a May placed due to difficulty voiding. [place] related to enlarged prostate. We added Flomax and did a voiding trial which he passed. Patient overall did well and was a to be discharged home on 01/03/2021. Status at Discharge Cognitive/behavioral status at discharge: Stable Time Spent with Patient Time attestation: Total time spent providing and/or coordinating discharge services: 35 minutes Time spent: Greater than 30 minutes Exam Narrative: Exam Narrative: AF 97.9 112/78 73 22 99% ra Gen - NARD Chest - Clear to auscultation bilaterally. normal respiratory rate CV - irregularly irregular with 2/6 diastolic murmur at the apex; Tele showing AFib with rate around 100-105 Abd - Soft, NT/ND, Positive BS - May secured draining dark yellow urine tinged with blood Ext - trace pedal edema Psych - Nml mood and affect Skin - Warm and dry DS: Data Data Completed and Pending Labs on day of discharge: Labs from last 24 hours 01/03/21 01/03/21 01/03/21 04:16 04:16 04:16 WBC 4.4 L RBC 4.37 L Hgb 13.2 L Hct 40.1 L MCV 91.8 MCH 30.2 MCHC 32.9 RDW 13.3 Plt Count 122 L MPV 12.9 H Immature Gran % (Auto) 0.2 Neut % (Auto) 56.0 Lymph % (Auto) 30.0 [place] % (Auto) 11.7 H Eos % (Auto) 1.6 Baso % (Auto) 0.5 Lymph # (Auto) 1.33 [place] # (Auto) 0.5 Eos # (Auto) 0.1 Baso # (Auto) 0.0 Abs Immat Gran (auto) 0.01 Absolute Neuts (auto) 2.5 Absolute Nucleated RBC 0.0 Nucleated RBC % 0.0 Sodium 137 Potassium 3.5 Chloride 104 Carbon Dioxide 24 Anion Gap 9 BUN 17 Creatinine 0.80 Estim Creat Clear Calc 69 Estimated GFR > 60 Glucose 101 Calcium 9.0 Phosphorus 3.5 Magnesium 1.6 Total Bilirubin 0.8 AST 26 ALT 15 Alkaline Phosp
== END 2021-01-03 15:38 | disposition home or self-care (01) ==
LOC: ANHED 16:49 → ANHIMU 19:53
PROVIDERS: Emergency Medicine; Internal Medicine Cardiovascular Disease; Admitting Provider Internal Medicine; Emergency Provider Emergency Medicine; PCP Family Medicine; Visit Provider Internal Medicine
PROC: (CPT 93312; principal; 2021-01-03 11:30)
PROC: 5A2204Z Restoration of Cardiac Rhythm, Single (ICD-10-PCS; 2021-01-03 11:30)
DX: I48.91 Unspecified atrial fibrillation (principal); I11.0 Hypertensive heart disease with heart failure; I50.9 Heart failure, unspecified; I08.1 Rheumatic disorders of both mitral and tricuspid valves; E78.5 Hyperlipidemia, unspecified; R33.9 Retention of urine, unspecified; Z85.038 Personal history of other malignant neoplasm of large intestine; Z90.49 Acquired absence of other specified parts of digestive tract
CPT/HCPCS: 36415; 71046; 80048; 80053; 80061; 82607; 82746; 83735; 83880; 84100; 84443; 84484; 85025; 85610; 85730; 92960; 93005; 93306; 93312; 93320; 93325; 96365; 96366; 96372; 96374; 96375; 99285; A9270; G0378; J1650; J1940; J2250; J3010; J7040

== ENCOUNTER 2021-01-30 01:23 | Day surgery (SDC) | payer MEDICARE, SELFPAY ==
[2021-01-29 15:10] VITALS: BMI 25.1
[2021-01-30] VITALS (10 sets, daily range): BP systolic 108–145; BP diastolic 64–105; PULSE 53–97; RESP 11–23; TEMP 36.2; O2SAT 92–100; BMI 25.4
--- NOTE | 2021-01-30 07:00 | ECG_ITS ---
Measurements Intervals [place] Rate: 87 P: MA: 0 QRS: 1 QRSD: 98 T: -18 QT: 331 QTc: 400 Interpretive Statements ATRIAL FIBRILLATION NONSPECIFIC T-WAVE ABNORMALITY- INFERIOR LEADS BASELINE ARTIFACT- I, II, III, AVL, AVF, V1 ABNORMAL ECG Electronically Signed On 01-30-2021 8:23:13 CDT by Jass Tran D.O.
[2021-01-30 08:06] LABS: Anion Gap 7 mmol/L (8-16); Blood Urea Nitrogen 13 mg/dL (9-20); Calcium 9.1 mg/dL (8.4-10.2); Carbon Dioxide 26 mmol/L (22-30); Chloride 104 mmol/L (98-107); Estimated CRCL calculation 62 ml/min; Estimated Glomerular Filt Rate > 60; Glucose 95 mg/dL (75-110); Magnesium 1.8 mg/dL (1.6-2.3); Potassium 4.2 mmol/L (3.4-5.0); Sodium 137 mmol/L (137-145)
--- NOTE | 2021-01-30 08:41 | WPDHPUPDATE1 ---
History and Physical Update Update Date/Time: 01/30/21 08:41 Patient new onset AFib cardiomyopathy in December 2020, status post cardioversion at that time, who had a relapse of his atrial fibrillation and is here for another cardioversion. He has been loaded on amiodarone for the last 2 weeks. He still feels out of when and tired a lot. He has not missed any doses of Eliquis and has been NPO. His heart rate is in the 80s. History and Physical has been reviewed, including an updated exam of the patient. There are NO changes in the patient's condition. Risks, benefits, and alternatives have been discussed and questions answered. Patient agrees to proceed with procedure.
--- NOTE | 2021-01-30 08:42 | WPDMODSED ---
Moderate Sedation Note-Pt Data Patient Data Diagnosis: Symptomatic atrial fibrillation Present Complaint: recent onset of AFib RVR and cardiomyopathy, admitted December 2020. Had a cardioversion at that time but later relapsed back into NSR. Has been loaded with amiodarone for 2 weeks and is here for a repeat cardioversion. Has been taking Eliquis and has not missed any doses. Heart rate is in the 80s. Still symptomatic with fatigue and breathlessness. Procedure to be performed/Plan: Conscious sedation Elective electrical cardioversion Allergies Allergy/AdvReac Type Severity Reaction Status Date / Time codeine Allergy Mild LIPS SWELL Unverified 01/29/21 15:23 Sulfa (Sulfonamide Allergy Mild LIPS Unverified 01/29/21 15:23 Antibiotics) SWELLING tetracycline Allergy Unknown Swelling Unverified 01/29/21 15:23 of Lip/Tongue/Throat Wheat Allergy Mild Itching Uncoded 01/29/21 15:23 Home Medications Medication Instructions Recorded Confirmed Type lisinopril 20 mg DAILY 09/10/20 01/30/21 History simvastatin 40 mg DAILY 09/10/20 01/30/21 History amiodarone 200 mg PO DAILY 01/30/21 01/30/21 History apixaban [Eliquis] 5 mg PO BID 01/30/21 01/30/21 History cetirizine [Zyrtec] 5 mg PO DAILY 01/30/21 01/30/21 History polyethylene glycol 3350 [Miralax] 17 g PO DAILY 01/30/21 01/30/21 History tamsulosin 0.4 mg PO DAILY 01/30/21 01/30/21 History Current Medications: Active Medications Sodium Chloride (Normal Saline Iv) 500 mls @ 30 mls/hr IV CONT .[id number] [facility] Sedation/Anesthesia: No previous sedation/anesthesia problems (including family history). [facility] Past Medical History Medical History (Updated 01/30/21 @ 08:43 by Debbie Jerez MD) Cardiomyopathy Persistent atrial fibrillation Social History Social History Smoking status: Former smoker Alcohol intake: never Last use: 1999 Living arrangements: with family Gender identity (if verbalized by the patient): Male Sexual Orientation (if Verbalized by the Patient): Straight or Heterosexual Spiritual care concerns: No Mod Sed Physical Exam Physical Exam Pre Procedural Exam: Normal: Appearance, Eyes, Ears, Nose, Neck, Throat, Airway, Lungs, Heart Size, Heart Rate, Neuro Exam, Abdomen, Extremities and Skin and Variation: Heart Rhythm ( irregular) Hours since solid foods: 12 Hours since liquid intake: 12 Mallampati Classification: class III Internal Medicine - PN: Obj Da Vital Signs Vital Signs: Vital Signs - 24 hr 01/30/21 07:40 Temperature 97.1 F L Pulse Rate 97 Respiratory Rate 20 Blood Pressure 129/83 Pulse Oximetry 98 Meds/Results Medications: Active Medications Generic Name Dose Route Start Last Admin Trade Name Freq PRN Reason Stop Dose Admin Sodium Chloride 500 mls @ 30 mls/hr 01/30/21 07:00 Normal Saline Iv IV CONT .[id number] [facility] Labs CBC & Chem 7: 01/30/21 07:36 Labs: Laboratory Results - last 24 hr 01/30/21 07:36 Sodium 137 Potassium 4.2 Chloride 104 Carbon Dioxide 26 Anion Gap 7 L BUN 13 Creatinine 0.90 Estim Creat Clear Calc 62 Estimated GFR > 60 Glucose 95 Calcium 9.1 Magnesium 1.8 ASA Classification/Sedation ASA Classification/Sedation ASA Class: III Emergent: No Risks: Risks, benefits and alternatives explained and patient/family accepted plan for sedation. Risks include stroke, allergic reactions, and affected arrhythmia. Patient re-evaluated immediately prior to sedation.
--- NOTE | 2021-01-30 09:02 | PM.OP ---
Procedure Note - Brief Procedure Note - Brief Date of procedure: 01/30/21 Pre-op diagnosis: a- fib Post-op diagnosis: same Procedure performed: Conscious sedation Elective electrical cardioversion Description of procedure: successful cardioversion to normal sinus rhythm rate 60 Anesthesia: other ( moderate sedation) Surgeon: Debbie Jerez MD Complications: No immediate complications Disposition: same day
--- NOTE | 2021-01-30 09:03 | ECG_ITS ---
Measurements Intervals [place] Rate: 57 P: 30 [place]: 151 QRS: -11 QRSD: 98 T: -5 QT: 467 QTc: 458 Interpretive Statements SINUS BRADYCARDIA NONSPECIFIC T-WAVE ABNORMALITY- ANT/INF LEADS BORDERLINE ECG Electronically Signed On 01-30-2021 11:37:15 CDT by Jass Tran D.O.
--- NOTE | 2021-01-30 09:03 | WPDCARDVER ---
Cardioversion Cardioversion Date of procedure: 01/30/21 Procedure: conscious sedation Elective electrical cardioversion Pre-op diagnosis: recurrent atrial fibrillation Post-op diagnosis: same Indications: patient admitted in December with AFib RVR and new cardiomyopathy, status post cardioversion at that time. He had a relapse of the atrial fibrillation. He has been loaded with amiodarone and is here for a repeat elective cardioversion. Description of procedure: Conscious sedation: Assessment: The patient has no history of anesthesia problems. The patient's oropharynx is clear. The patient was deemed to be a good candidate for conscious sedation. The patient had continuous hemodynamic monitoring during the procedure. Start time: 8:49 a.m. Completion time: 8:56 a.m. Total conscious sedation time: 7 minutes Medications: Versed 3 mg,fentanyl 50 mcg IV push Trained observer: Yoli Box RN Outcome: The patient tolerated the procedure well with no complications. Cardioversion: After informed consent and the above conscious sedation, the patient underwent elective electrical synchronized cardioversion with 200 joules of biphasic energy and converted to normal sinus rhythm, rate 60. There were no complications. Conclusion: successful electrical cardioversion
--- NOTE | 2021-01-30 11:16 | SUR.PHASEII ---
RN went through discharge instructions. Patient verbalized understanding. Patient escorted off the unit by wheelchair.
== END 2021-01-30 10:20 | disposition home or self-care (01) ==
PROVIDERS: PCP Family Medicine; Visit Provider Internal Medicine Cardiovascular Disease
PROC: 5A2204Z Restoration of Cardiac Rhythm, Single (ICD-10-PCS; principal; 2021-01-30 08:30)
DX: I48.19 Other persistent atrial fibrillation (principal); I42.9 Cardiomyopathy, unspecified; Z79.01 Long term (current) use of anticoagulants; Z87.891 Personal history of nicotine dependence
CPT/HCPCS: 36415; 80048; 83735; 92960; J2250; J3010; J7040

== ENCOUNTER 2021-04-16 00:03 | Day surgery (SDC) | payer MEDICARE, SELFPAY ==
[2021-04-15 17:07] VITALS: BMI 24.5
[2021-04-16] VITALS (32 sets, daily range): BP systolic 91–136; BP diastolic 56–101; PULSE 69–113; RESP 15–25; TEMP 35.9–37; O2SAT 90–97
[2021-04-16 07:55] LABS: Basophils Percent Auto 0.5 % (0.2-1.2); Eosinophils Absolute Auto 0.1 K/mm3 (0-0.3); Eosinophils Percent Auto 1.7 % (0-4.4); Hematocrit 43.7 % (42.0-52.0); Hemoglobin 14.5 g/dL (14.0-18.0); Immature Granulocyte Absolute 0.02 K/mm3 (0.00-0.031); Immature Granulocyte Percent A 0.3 % (0-0.5); Lymphocytes Absolute Auto 0.83 K/mm3 (0.9-3.2); Lymphocytes Percent Auto 10.8 % (18.3-44.2); Mean Corpuscular HGB Conc 33.2 g/dl (32-36); Mean Corpuscular Hemoglobin 30.2 pg (26-34); Mean Platelet Volume 10.3 fl (7.4-10.4); Monocytes Absolute Auto 0.8 K/mm3 (0.1-0.6); Monocytes Percent Auto 10.3 % (2.6-8.5); Neutrophils Absolute Auto 5.9 K/mm3 (1.3-6.7); Neutrophils Percent Auto 76.4 % (45.5-73.1); Platelet Count Result 250 k/mm3 (150-375); Red Cell Distribution Width 13.6 % (11.5-14.5); White Blood Count 7.7 K/mm3 (4.5-10.0)
[2021-04-16 08:01] LABS: Anion Gap 7 mmol/L (8-16); Blood Urea Nitrogen 20 mg/dL (9-20); Calcium 9.1 mg/dL (8.4-10.2); Carbon Dioxide 29 mmol/L (22-30); Chloride 99 mmol/L (98-107); Estimated CRCL calculation 56 ml/min; Estimated Glomerular Filt Rate > 60; Glucose 117 mg/dL (65-110); Potassium 4.6 mmol/L (3.4-5.0); Sodium 135 mmol/L (137-145)
--- NOTE | 2021-04-16 08:52 | WPDMODSED ---
Moderate Sedation Note-Pt Data Patient Data Diagnosis: Cardiomyopathy, shortness of breath, abnormal stress test Present Complaint: fatigue, shortness of breath history of physical update: Brief history of present illness: Patient is a 80-year-old male a history of coronary artery disease status post PCI 1999, hypertension, recent diagnosis atrial fibrillation found to have moderate LV dysfunction EF 34% with noninvasive ischemic evaluation which revealed moderate LV enlargement and moderate to severe dysfunction with concern for possible balanced ischemia but without focal defects identified. Patient continues to complain of progressive exertional dyspnea and fatigue referred for noninvasive evaluation for myocardial ischemia. Impression/plan of care - history of CAD with remote stent implantation 1999 moderate LV systolic dysfunction with progressive exertional dyspnea and fatigue concerning for anginal equivalent - atrial fibrillation rate controlled on amiodarone with prior failed cardioversion on anticoagulation with Eliquis. Moderate LV systolic dysfunction EF 34% compensated. Referral for coronary angiography with recommendation to follow given history of CAD, abnormal stress test and patient's ongoing symptoms. All questions answered to patient's satisfaction. He verbalized understanding and agreed to proceed with coronary angiography as outlined. He has held his Eliquis as instructed. Procedure to be performed/Plan: left heart catheterization with selective left and right coronary angiography with left ventriculography and hemodynamics and possible percutaneous intervention and stent implantation Allergies Allergy/AdvReac Type Severity Reaction Status Date / Time codeine Allergy Mild LIPS SWELL Verified 04/15/21 16:58 Sulfa (Sulfonamide Allergy Mild LIPS Verified 04/15/21 16:58 Antibiotics) SWELLING tetracycline Allergy Unknown Swelling Verified 04/15/21 16:58 of Lip/Tongue/Throat Wheat Allergy Mild Itching Uncoded 01/29/21 15:23 Home Medications Medication Instructions Recorded Confirmed Type lisinopril 20 mg DAILY 09/10/20 04/15/21 History simvastatin 40 mg DAILY 09/10/20 04/15/21 History Eliquis 5 mg PO BID 01/30/21 04/15/21 History amiodarone 200 mg PO DAILY 01/30/21 04/15/21 History cetirizine 5 mg PO DAILY 01/30/21 04/15/21 History polyethylene glycol 3350 [Miralax] 17 g PO DAILY 01/30/21 04/15/21 History tamsulosin 0.4 mg PO DAILY 01/30/21 04/15/21 History metoprolol succinate 50 mg PO DAILY 04/15/21 04/15/21 History Current Medications: Active Medications Sodium Chloride (Normal Saline Iv) 500 mls @ 100 mls/hr IV CONT .Q5H ALINA Sedation/Anesthesia: No previous sedation/anesthesia problems (including family history). [facility] Past Medical History Medical History Cardiomyopathy Persistent atrial fibrillation Social History Social History Smoking status: Never smoker Alcohol intake: never Last use: 1999 Living arrangements: with family Gender identity (if verbalized by the patient): Male Sexual Orientation (if Verbalized by the Patient): Straight or Heterosexual Spiritual care concerns: No Mod Sed Physical Exam Physical Exam Pre Procedural Exam: Normal: Appearance, Eyes, Ears, Nose, Neck ( supple normal range of motion), Throat ( posterior hypopharynx clear, nonerythematous), Airway ( normal anatomy no obstruction), Lungs ( clear to auscultation bilaterally), Heart Size, Heart Rate, Neuro Exam, Abdomen, Liver, Extremities and Skin and Variation: Heart Rhythm ( irregularly irregular) Hours since solid foods: 12 Hours since liquid intake: 12 Mallampati Classification: class II and class III Internal Medicine - PN: Obj Da Vital Signs Vital Signs: Vital Signs - 24 hr 04/16/21 07:45 Temperature 37.0 C Pulse Rate 99 Respiratory Rate 15 Blood Pressu
--- NOTE | 2021-04-16 09:00 | WPDHPUPDATE1 ---
History and Physical Update Update Date/Time: 04/16/21 09:00 History and Physical has been reviewed, including an updated exam of the patient. There are NO changes in the patient's condition. Risks, benefits, and alternatives have been discussed and questions answered. Patient agrees to proceed with procedure. See Moderate sedation Note for H&P Update:
--- NOTE | 2021-04-16 09:00 | PM.OP ---
Procedure Note - Brief Procedure Note - Brief Date of procedure: 04/16/21 Pre-op diagnosis: Cardiomyopathy, CAD Post-op diagnosis: same Procedure performed: Left heart catheterization with selective left and right coronary angiography with left ventriculography and hemodynamics Description of procedure: BRIEF HISTORY OF PRESENT ILLNESS: Patient is a pleasant 80-year-old male with a history of CAD with remote stent implantation 2000 recent diagnosis atrial fibrillation, hypertension, dyslipidemia with progressive exertional dyspnea and fatigue and moderate LV dysfunction on stress test referred for left heart catheterization for delineation of his coronary anatomy. PROCEDURES PERFORMED: 1. Left heart catheterization 2. Selective left and right coronary angiography 3. Left ventriculography and hemodynamics 4. Moderate/conscious sedation administration CATHETERS UTILIZED: Left coronary system- 5 [place] JL4 catheter Right coronary system- 5 [place] JR4 catheter Left ventriculography and hemodynamics- 5 [place]ian angled pigtail catheter PROCEDURE IN DETAIL: After verbal and written informed consent was obtained the patient, risks, benefits, and alternatives explained in detail the patient agreed to proceed with the plan of care as outlined above. The patient was subsequently brought to the cardiac catheterization lab, placed on the cardiac catheterization table, and prepped and draped in the usual sterile fashion. Utilizing approximately 15cc of 1% subcutaneous Lidocaine, the right groin was then locally anesthetized. Utilizing the modified Seldinger technique, a 5 [place]ian arterial vascular access sheath was inserted in the right common femoral artery easily and without complications. Through this access, coronary angiography was subsequently obtained in multiple standard re-projections. Following this, a 5 [place] angled pigtail catheter was advanced retrograde across aortic valve into the cavity of the left ventricle. Left ventriculography was performed and pullback across aortic valve was subsequently recorded. The vascular access sheath and angiographic catheters were flushed before and after catheter exchanges. At the conclusion of the diagnostic portion of the procedure, all angiographic guidewires and catheters were removed and the 5 [place] arterial vascular access sheath was left in place in anticipation for possible percutaneous intervention. There no complications noted at the conclusion of the diagnostic portion of the study. MODERATE SEDATION/ANESTHESIA ADMINISTRATION: Patient reports no prior problems with sedation/anesthesia. Please see pre-sedation noted for physical examination documentation. Sedation start time was 0906 and end time was 1000 for a total intra-service/procedure face-face time of 54 minutes. A total of 1 mg intravenous Versed and a total of 50 mcg intravenous Fentanyl was administered for moderate sedation. Moderate sedation was administered by qualified/certified observer Yoli Box RN under my supervision with intra-procedure [id number] observation and management throughout the entirety of the procedure. There were no other issues or complications and patient tolerated the procedure well. See post-anesthesia documentation. Anesthesia: local and none ( Moderate/conscious sedation) Surgeon: Victor M Barnes MD Estimated blood loss (mL): 5 Drains: No Packing: No Pathology: none sent Complications: No immediate complications Condition: stable Disposition: same day Findings: CORONARY ANGIOGRAPHY: The LEFT MAIN arose from the left coronary cusp and was short and without angiographically significant disease. The left main then bifurcated into the left anterior descending artery and circumflex coronary artery. LEFT ANTERIOR DESCENDING ARTERY: moderate caliber vessel extending to the LV apex with a patent previously placed stent located in the distal portion of the proximal LAD spanning across 1st diag
--- NOTE | 2021-04-16 11:08 | WPDCARDPROC ---
Cardiac Cath Procedure Note Date of procedure:: 04/16/21 Performing physician:: Isaias Bentley MD Procedure Procedure note:: PERCUTANEOUS CORONARY INTERVENTION REPORT DATE OF PROCEDURE: 04/16/2021 INDICATION FOR PROCEDURE: shortness of breath, LV dysfunction; CAD with diffuse InStent restenosis (ISR) mid RCA BRIEF CLINICAL HISTORY: 80-year-old male with known CAD, history of remote PCI/ bare metal stenting of LAD, and mid RCA ( 4.0 x 28 mm bare metal stent mid RCA); CHF with reduced ejection fraction, atrial fibrillation. Patient had diagnostic coronary angiogram performed by Dr. Barnes ( diagnostic angiographic findings described separately by Dr. Barnes), which in addition to other findings showed diffuse InStent restenosis in the mid RCA with diffuse ectasia distal to the stent. In light of patient's symptoms, LV dysfunction and angiographic findings, we proceeded with the intravascular ultrasound (IVUS) guided PCI on mid-distal RCA. Benefits and risks of the procedure were discussed with the patient in depth, and informed consent was obtained prior to the procedure. Risks of the procedure include but are not limited to vascular complications including groin hematoma, retroperitoneal bleed, vessel perforation; periprocedural MT, cardiac arrhythmias, stroke, contrast induced nephropathy, and . After discussing all the benefits, risks and alternatives, patient was willing to proceed with the procedure. PROCEDURES PERFORMED: 1. Selective right coronary angiogram 2. Percutaneous coronary intervention- a) intravascular ultrasound (IVUS) of right coronary artery; b) IVUS guided PCI- balloon angioplasty and stenting of mid-distal RCA using 2 Biotronik orsiro sirolimus eluting stents ( 4.0 x 35 mm, 4.0 x 30 mm) in overlapping fashion with good angiographic results. 3. Selective right common femoral angiogram 4. Moderate sedation-CPT code 40713 MODERATE SEDATION: Midazolam 1 mg; fentanyl 75 mcg. Start time 1000 , Stop time 1055 ; Total [id number] time 55 minutes; Yoli Box RN was trained observer for moderate sedation. ACCESS SITE: Right common femoral artery INTERVENTION REPORT: informed consent was already taken from the patient prior to diagnostic catheterization. Based on patient's symptoms and angiographic findings, we proceeded with the IVUS guided PCI on the mid-distal RCA. The 5 [place] sheath was exchanged with a 6 [place] sheath. Right coronary artery ostium was selectively engaged using 6 [place] 3.5 JR guide catheter. Patient received bivalirudin for procedural anticoagulation. A 0.014 loose guidewire was advanced into the mid -distal RCA and advanced to the RPL branch. Next, IVUS was performed using [employer] Eye catheter. The IVS catheter was advanced to the mid RCA stented segment, and did not go beyond the mid segment due to the diffuse InStent restenosis. IVUS on the manual pullback showed diffuse InStent restenosis with intimal hyperplasia. Next, we proceeded with the PCI. Patient was given aspirin loading dose of ticagrelor 180 mg in the geochemical laboratory technician. Balloon angioplasty was performed using a 4.0 x 15 mm quantum noncompliant balloon. Balloon angioplasty was performed in the entire stented segment of the mid RCA, and also in the distal RCA where diffuse ectasia was seen. After multiple inflations, the balloon was taken out and angiogram showed good angiographic results. Next, a 4.0 x 35 mm Biotronik sirolimus eluting stent was successfully advanced to the distal RCA in an overlapping fashion with the previously placed mid stent and was deployed at a maximum of 14 atmospheres. Postdilation was initially performed using the stent balloon. The stent balloon was taken out. Next, a 4.0 x 30 mm Biotronik sirolimus eluting stent was successfully deployed in an overlapping fashion with the previously placed stent covering the old bare metal stent in the mid RCA. The stent was deployed at a maximum of 14 atmo
--- NOTE | 2021-04-16 11:36 | SUR.PHASEII ---
updated by ANTHONY Suarez, and patient, who both spoke with her.
--- NOTE | 2021-04-16 12:27 | ECG_ITS ---
Measurements Intervals Brick Rate: 82 P: NV: 0 QRS: 53 QRSD: 98 T: 24 QT: 401 QTc: 469 Interpretive Statements ATRIAL FIBRILLATION NONSPECIFIC T-WAVE ABNORMALITY- INFERIOR LEADS ABNORMAL ECG Electronically Signed On 04-16-2021 12:58:44 CDT by Jass Tran D.O.
--- NOTE | 2021-04-16 13:41 | SUR.PHASEII ---
Pt unable to void per urinal, May catheter placed prior to sheath being pulled, no resistance met - draining light clear yellow urine
--- NOTE | 2021-04-16 15:05 | ADMGEN ---
This patient, Lm Jimenez, was admitted VIA BED to [facility] PACU EXTENDED RECOVERY AFTER OUTPATIENT PROCEDURE ( OUTPATIENT C W/ PCI PER DR. SUTTON/ROB). Patient/family oriented to hospital policies and general routines including ID bracelet, bed and alarms, visiting hours, pain management, procedures, bathroom and other care routines, personal items, smoking policy, room service/diet, and visiting hours. DENIES PAIN OR SOB ON ARRIVAL. BEDREST CONTINUES X 6 HOURS UNTIL 2004. IVF'S RUNNING ORDERED. R. GROIN PUNCTURE SITE SOFT, NONTENDER. NO BLEEDING OR HEMATOMA NOTED. STAT SEAL AND TEGADERM DRESSING C/D/I TO SITE. R. PEDAL PULSE PALP 2+. SENSATION AND MOVEMENT TO R. FOOT WNL. REVIEWED BEDREST ACTIVITY RESTRICTIONS W/ PT. PT. HAS STENT CARD IN HIS POSSESSION (IN [facility]). Information on how to activate the Rapid Response Team has been discussed. Patient/Family are encouraged to report perceived risks to care and to ask questions if they do not understand what they are told or what they should do.
[2021-04-16] MEDS: SODIUM CHLORIDE 0.9% IV 1,000 ML 125 ML IV CONT (18:29)
--- NOTE | 2021-04-16 18:50 | PC.NURSE ---
REQUESTED CLARIFICATION OF ELIQUIS BEING GIVEN DAY OF C ALONG WITH NEWLY ORDERED BRILLINTA AND ASA. PER DR. MCCANN HOLD DOSE OF ELIQUIS ORDERED FOR THIS EVENING AND GIVE BRILLINTA ORDERED. RN TO REQUEST CLARIFICATION OF ADMINISTRATION OF ELIQUIS WITH BRILLINTA AND ASA TOMORROW 04/17 AND WHEN ELIQUIS DOSING SHOULD RESUME.
[2021-04-16] MEDS: AMIODARONE HCL 200 MG TABLET PO (20:55)
[2021-04-16] MEDS: METOPROLOL SUCCINATE EXT REL 50 MG TABCR PO (20:55)
[2021-04-16] MEDS: TICAGRELOR 90 MG TABLET PO (20:57)
[2021-04-17] VITALS (7 sets, daily range): BP systolic 124–135; BP diastolic 75–90; PULSE 75–102; RESP 13–24; TEMP 36.9–37.4; O2SAT 92–93
[2021-04-17] MEDS: ASPIRIN 81 MG ENTERIC TABLET PO (08:23)
[2021-04-17] MEDS: AMIODARONE HCL 200 MG TABLET PO (08:23)
[2021-04-17] MEDS: METOPROLOL SUCCINATE EXT REL 50 MG TABCR PO (08:24)
[2021-04-17] MEDS: LORATADINE 10 MG TABLET PO (08:24)
[2021-04-17] MEDS: lisinopriL 20 MG TABLET BY MOUTH (08:24)
[2021-04-17] MEDS: TICAGRELOR 90 MG TABLET PO (08:25)
[2021-04-17] MEDS: TAMSULOSIN HCL 0.4 MG CAPSULE PO (08:25)
--- NOTE | 2021-04-17 09:22 | PM.PNCARD ---
Progress Note: A&P Assessment and Plan (1) CAD (coronary artery disease): Code(s): I25.10 - Atherosclerotic heart disease of [place] coronary artery without angina pectoris Status: Acute Assessment and Plan: Status post drug-eluting stent overlapping 4.0 x 35 mm and 4.0 x 30 mm sirolimus eluting stent mid to distal RCA IVS guided. No complications post intervention. Counseled on precautions post catheterization, bleeding risk on triple therapy, activity precautions once again reviewed in detail. All questions answered to his satisfaction. Discontinue simvastatin. Atorvastatin 80 mg initiated. Patient advised he must not missed a dose of aspirin or Brilinta to run risk of stent thrombosis and or myocardial infarction. Patient verbalized understanding. Monitor for bleeding very closely notify our office immediately and if hematoma, severe pain, leg discoloration to present to the ER via EMS immediately. Patient understands. (2) Cardiomyopathy: Code(s): I42.9 - Cardiomyopathy, unspecified Status: Acute Assessment and Plan: EF 35%. Hemodynamically significant stenosis in RCA as well as InStent restenosis status post overlapping drug-eluting stents to mid to distal RCA. I suspect symptoms are combination of underlying obstructive CAD now status post PCI and persistent atrial fibrillation in light of moderate LV dysfunction. (3) Persistent atrial fibrillation: Code(s): I48.19 - Other persistent atrial fibrillation Status: Acute Assessment and Plan: Heart rate reasonably controlled. Continue amiodarone, Eliquis and Toprol XL 50 mg daily. Ongoing dyspnea fatigue multifactorial including obstructive CAD now status post PCI and persistent atrial fibrillation. Plan for SANDRA guided cardioversion as an outpatient if symptoms persist and/or do not acceptably improved. Counseled patient on potential shortness of breath side effects with Brilinta as well. Patient stable for discharge home in improved condition. Will follow-up with me as scheduled and notify the office of his symptoms and or concerns immediately. Subjective Date/time seen: Date of service: 04/17/21 09:22 Follow-up for elective PCI to RCA Denies chest pain, fever, chills or right groin pain. No issues overnight. Still notes exertional dyspnea ambulating to the bathroom. No other concerns however. Review of Systems Review of Systems: All systems reviewed & are unremarkable except as noted in HPI and below Constitutional: Constitutional: Reports as per HPI and Reports no additional constitutional complaints Eyes: Eyes: Reports as per HPI and Reports no additional eye complaints ENT: Reports system reviewed and no additional complaints, except as documented and Reports as per HPI Cardiovascular: Cardiovascular: Reports as per HPI and Reports no additional cardiovascular complaints Respiratory: Respiratory: Reports as per HPI and Reports no additional respiratory complaints Gastrointestinal: Gastrointestinal: Reports as per HPI and Reports no additional gastrointestinal complaints Genitourinary: Genitourinary: Reports no additional male genitourinary complaints and Reports as per HPI Musculoskeletal: Musculoskeletal: Reports no additional musculoskeletal complaints and Reports as per HPI Integumentary/Breasts: Skin/Breast: Reports system reviewed and no additional complaints, except as docu and Reports as per HPI Neurologic: Reports system reviewed and no additional complaints, except as documented and Reports as per HPI Psychiatric: Psychiatric: Reports no additional psychiatric complaints and Reports as per HPI Endocrine: Endocrine: Reports no additional endocrine complaints and Reports as per HPI Hematologic/Lymphatic: Hematologic/Lymphatic: Reports no additional hematologic/lymphatic complaints and Reports as per HPI Allergic/Immunologic: Allergic/Immunologic: Reports no additional allergic/immunologic complaints and
[2021-04-17] MEDS: ATORVASTATIN 40 MG TABLET 80 MG PO (09:23)
--- NOTE | 2021-04-17 09:28 | PM.DS ---
DS: Admitting Diagnosis Discharge Date 04/17/2021 Admitting Diagnosis Abnormal stress test, cardiomyopathy, CAD DS: Discharge Diagnosis Discharge Diagnosis (1) CAD (coronary artery disease): Code(s): I25.10 - Atherosclerotic heart disease of [place] coronary artery without angina pectoris Status: Acute Assessment and Plan: Status post drug-eluting stent overlapping 4.0 x 35 mm and 4.0 x 30 mm sirolimus eluting stent mid to distal RCA IVS guided. No complications post intervention. Counseled on precautions post catheterization, bleeding risk on triple therapy, activity precautions once again reviewed in detail. All questions answered to his satisfaction. Discontinue simvastatin. Atorvastatin 80 mg initiated. Patient advised he must not missed a dose of aspirin or Brilinta to run risk of stent thrombosis and or myocardial infarction. Patient verbalized understanding. Monitor for bleeding very closely notify our office immediately and if hematoma, severe pain, leg discoloration to present to the ER via EMS immediately. Patient understands. (2) Persistent atrial fibrillation: Code(s): I48.19 - Other persistent atrial fibrillation Status: Acute Assessment and Plan: Heart rate reasonably controlled. Continue amiodarone, Eliquis and Toprol XL 50 mg daily. Ongoing dyspnea fatigue multifactorial including obstructive CAD now status post PCI and persistent atrial fibrillation. Plan for SANDRA guided cardioversion as an outpatient if symptoms persist and/or do not acceptably improved. Counseled patient on potential shortness of breath side effects with Brilinta as well. Patient stable for discharge home in improved condition. Will follow-up with me as scheduled and notify the office of his symptoms and or concerns immediately. (3) Cardiomyopathy: Code(s): I42.9 - Cardiomyopathy, unspecified Status: Acute Assessment and Plan: EF 35%. Hemodynamically significant stenosis in RCA as well as InStent restenosis status post overlapping drug-eluting stents to mid to distal RCA. I suspect symptoms are combination of underlying obstructive CAD now status post PCI and persistent atrial fibrillation in light of moderate LV dysfunction. DS: Summary Hospital Course Reason for hospitalization: Elective cardiac catheterization Hospital Course: Patient brought in as an outpatient for coronary angiography due to worsening dyspnea and fatigue and declining EF 34% a nuclear stress test with moderate LV enlargement concern for balanced ischemia given history of CAD. Coronary angiography revealed high-grade InStent restenoses tess guided PCI with drug-eluting stents placed to RCA mid to distal segments. Extensive discussion held as previously documented with regards to cardioversion versus proceeding with intervention as ischemia and persistent AFib likely contributing to his symptom complex and LV dysfunction. Patient desired to proceed with intervention now and not wait and risk having a 2nd angiography performed. Status at Discharge Cognitive/behavioral status at discharge: Competent Overall status at discharge: patient is back to baseline Time Spent with Patient Time attestation: Total time spent providing and/or coordinating discharge services: 38 minutes Time spent: Greater than 30 minutes Specific discharge activities: See discharge instructions Exam Narrative: General: Well developed, alert and oriented x3. No apparent distress, comfortable, pleasant, and cooperative. Head: atraumatic, normocephalic Eyes: EOM intact, sclerae anicteric, conjunctivae unremarkable Ears/Nose: external inspection of ears and nose were grossly normal Mouth/Throat: oral mucosa pink and moist Neck: supple, normal range of motion, no jugular venous distention or carotid bruits, thyroid nonpalpable, trachea midline. Cardiac: Irregular irregular rate and rhythm, normal S1-S2, soft systolic murmurs Lungs: Billy
== END 2021-04-17 09:46 | disposition home or self-care (01) ==
LOC: ANHCATHLAB 13:03 → ANHCPC 16:08
PROVIDERS: Internal Medicine Cardiovascular Disease; PCP Family Medicine; Visit Provider Internal Medicine Cardiovascular Disease
PROC: 4A023N7 Measurement of Cardiac Sampling and Pressure, Left Heart, Percutaneous Approach (ICD-10-PCS; CPT 93452; principal; 2021-04-16 08:30)
DX: I25.10 Atherosclerotic heart disease of native coronary artery without angina pectoris (principal); T82.855A Stenosis of coronary artery stent, initial encounter; Y83.8 Other surgical procedures as the cause of abnormal reaction of the patient, or of later complication, without mention of misadventure at the time of the procedure; I42.9 Cardiomyopathy, unspecified; R06.02 Shortness of breath; I48.19 Other persistent atrial fibrillation; I10 Essential (primary) hypertension; E78.5 Hyperlipidemia, unspecified; Z79.01 Long term (current) use of anticoagulants
CPT/HCPCS: 36415; 80048; 85025; 92978; 93005; 93458; A9270; C1725; C1753; C1769; C1874; C1887; C1894; C9600; J0461; J0583; J1644; J2250; J3010; J7030; J7040

== ENCOUNTER 2021-05-08 07:53 | Outpatient (CLI) | payer MEDICARE, SELFPAY ==
--- NOTE | ~2021-05-08 | CT_ITS ---
EXAMINATION: CTA chest PE protocol DATE: 05/08/2021 08:51 INDICATION: Shortness of breath. Hemoptysis. TECHNIQUE: Computed tomography angiography (CTA) of the chest was performed with 100 mL Omnipaque-350 intravenous contrast timed to evaluate the pulmonary arteries. Coronal maximum intensity projection 3D-reconstructions were created by the technologist. Automated exposure control and iterative reconst ruction technique were employed. Exam dose: 228.28 mGy-cm total exam DLP. COMPARISON: 01/01/2021 2 view chest 05/17/2004 CT chest high resolution scan FINDINGS: There is diagnostic contrast enhancement of the pulmonary arteries and no evidence of pulmo nary embolism. No thoracic aortic aneurysm. Calcified left hilar and mediastinal nodes consistent with old granulomatous disease. No hilar or med iastinal mass lesion or lymphadenopathy. Normal heart size. Trace pericardial fluid. No pleural effusion. There is bilateral apical fibrocalcific scarring, increased since 05/17/2004. Prominent emphysematous changes of the lungs. Stable anterolateral middle lobe pleural-based 8 mm opacity with some calcification (series 4 image 9 6), not significantly changed since 05/17/2004, likely due to old pulmonary granulomatous disease Another likely chronic pleural-based 6 mm opacity is noted at the lateral right lower lobe (series 4 image 98). 6 mm peripheral anterolateral right lower lobe nodule (series 4 image 80) There is severe degenerative disc disease at C5-6 and C6-7 and moderately severe degenerative disc di sease and mild anterolisthesis at C7-T1. There is degenerative spurring of the thoracic spine. No sarmad picious osteolytic or osteoblastic lesions are noted. IMPRESSION: No evidence of pulmonary embolism Old pulmonary granulomatous disease Prominent bilateral apical fibrocalcific scarring Emphysema Middle and right lower lobe peripheral pleural-based subcentimeter nodules; six-month CT follow-up is recommended Reviewed, dictated and finalized at [facility]. Reviewed, dictated and finalized at location B. IMPRESSION: No evidence of pulmonary embolism Old pulmonary granulomatous disease Prominent bilateral apical fibrocalcific scarring Emphysema Middle and right lower lobe peripheral pleural-based subcentimeter nodules; six -month CT follow-up is recommended
== END 2021-05-08 07:54 | disposition home or self-care (01) ==
PROVIDERS: PCP Family Medicine; Visit Provider Family Medicine
DX: R06.02 Shortness of breath (principal); R04.2 Hemoptysis; J43.9 Emphysema, unspecified; R91.8 Other nonspecific abnormal finding of lung field
CPT/HCPCS: 71275; Q9967

== ENCOUNTER 2021-05-10 06:58 | Day surgery (SDC) | payer MEDICARE, SELFPAY ==
[2021-05-06 13:21] VITALS: BMI 23.6
[2021-05-10] VITALS (17 sets, daily range): BP systolic 105–155; BP diastolic 73–114; PULSE 79–112; RESP 14–28; TEMP 36.3; O2SAT 95–100; BMI 23.6
--- NOTE | 2021-05-10 07:19 | ECG_ITS ---
Measurements Intervals [place] Rate: 102 P: [place]: 0 QRS: 26 QRSD: 101 T: -34 QT: 350 QTc: 458 Interpretive Statements ATRIAL FIBRILLATION WITH RAPID VENTRICULAR RESPONSE NONSPECIFIC ST & T-WAVE ABNORMALITY- ANTEROLAT/INF LEADS ABNORMAL ECG Electronically Signed On 05-10-2021 7:44:57 CDT by Jass Tran D.O.
--- NOTE | 2021-05-10 07:19 | ECG_ITS ---
Measurements Intervals [place] Rate: 98 P: [place]: 0 QRS: 20 QRSD: 117 T: -37 QT: 385 QTc: 492 Interpretive Statements ATRIAL FIBRILLATION INTRAVENTRICULAR CONDUCTION DELAY BORDERLINE T WAVE ABNORMALITY- ANTEROLAT/INF LEADS ABNORMAL ECG Electronically Signed On 05-10-2021 9:22:55 CDT by Jass Tran D.O.
[2021-05-10 07:43] LABS: INR 1.2; Prothrombin Time 14.9 Seconds (11.1-14.7)
[2021-05-10 07:46] LABS: Anion Gap 5 mmol/L (8-16); Blood Urea Nitrogen 20 mg/dL (9-20); Calcium 8.8 mg/dL (8.4-10.2); Carbon Dioxide 29 mmol/L (22-30); Chloride 102 mmol/L (98-107); Estimated CRCL calculation 62 ml/min; Estimated Glomerular Filt Rate > 60; Glucose 115 mg/dL (65-110); Magnesium 1.9 mg/dL (1.6-2.3); Potassium 4.2 mmol/L (3.4-5.0); Sodium 136 mmol/L (137-145)
--- NOTE | 2021-05-10 08:25 | WPDMODSED ---
Moderate Sedation Note-Pt Data Patient Data Diagnosis: Atrial fibrillation Present Complaint: Fatigue, shortness of breath Procedure to be performed/Plan: Transesophageal echocardiogram guided elective electrical cardioversion Allergies Allergy/AdvReac Type Severity Reaction Status Date / Time codeine Allergy Mild LIPS SWELL Verified 05/06/21 13:41 Sulfa (Sulfonamide Allergy Mild LIPS Verified 05/06/21 13:41 Antibiotics) SWELLING tetracycline Allergy Unknown Swelling Verified 05/06/21 13:41 of Lip/Tongue/Throat Wheat Allergy Mild Itching Uncoded 05/06/21 09:20 Home Medications Medication Instructions Recorded Confirmed Type lisinopril 20 mg DAILY 09/10/20 05/06/21 History Zyrtec 10 mg PO DAILY 01/01/21 05/06/21 History polyethylene glycol 3350 [Miralax] 17 g PO DAILY 01/01/21 05/06/21 History apixaban [Eliquis] 5 mg PO Q12HR #60 tablet 01/03/21 05/06/21 Rx metoprolol succinate 150 mg PO QPM 30 Days #90 tablet 01/03/21 05/06/21 Rx tamsulosin 0.4 mg PO QAM 30 Days #30 cap 01/03/21 05/06/21 Rx Eliquis 5 mg PO BID 01/30/21 05/06/21 History amiodarone 200 mg PO DAILY 01/30/21 05/06/21 History cetirizine 5 mg PO DAILY 01/30/21 04/16/21 History aspirin 81 mg PO QAM #30 tablet 04/16/21 05/06/21 Rx ticagrelor [Brilinta] 90 mg PO Q12HR #60 tablet 04/16/21 05/06/21 Rx atorvastatin 80 mg PO DAILY #30 tablet 04/17/21 05/06/21 Rx Current Medications: Active Medications Sodium Chloride (Normal Saline Iv) 1,000 mls @ 30 mls/hr IV CONT .Q24H ALINA Sodium Chloride (Normal Saline Iv) 1,000 mls @ 30 mls/hr IV CONT .Q24H ALINA Sedation/Anesthesia: No previous sedation/anesthesia problems (including family history). [facility] Past Medical History Medical History Blindness of right eye Cardiomyopathy Colon cancer Hyperlipidemia Hypertension Persistent atrial fibrillation Surgical History Surgical History H/O colectomy History of appendectomy History of tonsillectomy Family History Family History Mother Cancer Father Cirrhosis Alcohol abuse Social History Social History Social History: The patient is semi retired. He is and lives with his . 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 He is listed as a full code. The patient denies any alcohol. He states that he is a former smoker. Smoking status: Former smoker Additional smoking assessment comments: 5-6 years ago Alcohol intake: current Substance use: current Substance use type: does not use Last use: 1999 Gender identity (if verbalized by the patient): Male Sexual Orientation (if Verbalized by the Patient): Straight or Heterosexual Spiritual care concerns: No Mod Sed Physical Exam Physical Exam Pre Procedural Exam: Normal: Appearance, Eyes, Ears, Nose, Neck (Supple, normal range of motion), Throat (Posterior hypopharynx clear, nonerythematous), Airway (Normal anatomy, no obstruction visible), Lungs (Diminished breath sounds diffusely), Heart Size, Neuro Exam, Abdomen, Liver, Extremities and Skin and Variation: Heart Rate (Tachycardic) and Heart Rhythm (Irregularly irregular) Hours since solid foods: 12 Hours since liquid intake: 12 Mallampati Classification: class III Internal Medicine - PN: Obj Da Vital Signs Vital Signs: Vital Signs - 24 hr 05/10/21 07:30 05/10/21 08:30 05/10/21 08:35 Temperature 36.3 C L Pulse Rate 101 H 112 H 101 H Respiratory Rate 22 H 20 27 H Blood Pressure 134/97 H 144/96 H 146/101 H Pulse Oximetry 98 99 100 05/10/21 08:40 05/10/21 08:45 05/10/21 08:50 Temperature Pulse Rate 100 106 H 107 H Respiratory Rate 28 H 21 H 27 H Blood Pressure 145/97 H 147/106 H 155/114 H Pulse Oximetry 100 99 98 05/10/21 08:55 05/10/21 09:00 05/10/21 09:05 Temperature Pulse Rate
--- NOTE | 2021-05-10 09:16 | SUR.PHASEII ---
Pt successfully cardioverted but then reverted back to A-fib when Dr. Barnes left room. MD Barnes aware.
--- NOTE | 2021-05-10 09:19 | WPDTECDV ---
GIL with Cardioversion Date of procedure: 05/10/21 Procedure Type: Transesophageal echocardiogram guided elective electrical cardioversion Diagnosis: Atrial fibrillation Indications: Atrial fibrillation Description of Procedure: Brief history present illness: Patient is a pleasant 80-year-old male with past medical history significant for persistent atrial fibrillation, CAD, ischemic cardiomyopathy status post recent intervention, hypertension, history of tobacco and alcohol use, hypertension, dyslipidemia with complaints of persistent fatigue and exertional dyspnea despite having undergone coronary intervention and adequate heart rate control on amiodarone referred for transesophageal echocardiogram-guided elective electrical cardioversion in attempt to restore sinus rhythm. Gil guidance was once again advised as patient had been off systemic anticoagulation for several days from recent percutaneous intervention and stent implantation. Procedure in detail: After verbal and written informed consent was obtained the patient risks, benefits, and alternatives explained in detail the patient agreed to proceed with the plan of care as outlined above. Patient was evaluated at bedside in the [facility] procedure room. On examination, neck was supple with normal range of motion, no restrictions to opening of the oral cavity, jaw angle and posterior hypopharynx was clear. Lungs were clear to auscultation. Patient was placed in appropriate 30 to 45 degree angle in a supine, slight left lateral decubitus position. Patient was monitored throughout the study with telemetry, oxygen saturation, end-tidal CO2 monitoring, blood pressure, heart rate, and respirations. Anterior and posterior defibrillator pads placed in the appropriate positions. The posterior hypopharynx was then locally anesthetized using repeated administration of Hurricaine spray as well as gargled viscous lidocaine. After local anesthetic of the posterior hypopharynx was achieved and the oral bite block placed, moderate sedation was administered. Through the oral bite block, the transesophageal echocardiogram probe was advanced into the posterior hypopharynx and into the esophagus easily and without complication. Multiple, multiplanar echocardiographic images were obtained in multiple standard re-projections. Pulsed wave, continuous-wave, and color-flow Doppler were utilized in conjunction with this study. At the conclusion of the study, the transesophageal echocardiogram probe was removed easily and without complication. Patient tolerated the procedure well without difficulty. Patient was in atrial fibrillation throughout the study. Sedation: Moderate Sedation/Anesthesia administration: Patient denied previous intolerance or complications with anesthesia/sedation. Please see sedation note for documentation of the pre-procedure physical examination. As noted above, after adequate local anesthesia of the posterior hypopharynx was achieved, a total of 4mg intravenous Versed and a total of 100 mcg intravenous Fentanyl in multiple divided doses was utilized for moderate sedation. Sedation start time was 0845 and end time was 0912 for a total of 27 minutes [id number] intra-procedure time. Sedation was administered by a qualified observer Jennifer Weston RN under my supervision with intra-procedure [id number] observation and management throughout the entirety of the procedure. There were no other issues or complications and patient tolerated the procedure well and sedation protocol well and I was present for the entirety. Findings: FINDINGS: LEFT VENTRICLE: Normal size with moderate to severe LV systolic dysfunction ejection fraction visually estimated 30%.. RIGHT VENTRICLE: Size and systolic function within normal limits. LEFT ATRIUM: Moderate enlargement. Spontaneous contrast noted. RIGHT ATRIUM: Moderate enlargement. Spontaneous contrast noted. INTERATRIAL SEPTUM: Interat
--- NOTE | 2021-05-10 09:41 | WPDHPUPDATE1 ---
History and Physical Update Update Date/Time: 05/10/21 08:25 History and Physical has been reviewed, including an updated exam of the patient. There are NO changes in the patient's condition. Risks, benefits, and alternatives have been discussed and questions answered. Patient agrees to proceed with procedure.
== END 2021-05-10 11:20 | disposition home or self-care (01) ==
PROVIDERS: PCP Family Medicine; Visit Provider Internal Medicine Cardiovascular Disease
PROC: (CPT 93312; principal; 2021-05-10 08:30)
PROC: 5A2204Z Restoration of Cardiac Rhythm, Single (ICD-10-PCS; 2021-05-10 08:30)
DX: I48.19 Other persistent atrial fibrillation (principal); I25.10 Atherosclerotic heart disease of native coronary artery without angina pectoris; I25.5 Ischemic cardiomyopathy; I10 Essential (primary) hypertension; R53.83 Other fatigue; E78.5 Hyperlipidemia, unspecified; R06.00 Dyspnea, unspecified; I51.7 Cardiomegaly; I34.0 Nonrheumatic mitral (valve) insufficiency; I45.9 Conduction disorder, unspecified; R06.02 Shortness of breath; Z79.01 Long term (current) use of anticoagulants; Z95.5 Presence of coronary angioplasty implant and graft; Z91.89 Other specified personal risk factors, not elsewhere classified
CPT/HCPCS: 36415; 80048; 83735; 85610; 92960; 93312; 93320; 93325; J0282; J2250; J3010; J7030

== ENCOUNTER → 2021-05-20 03:50 | Outpatient (CLI) | payer MEDICARE, SELFPAY ==
[2021-05-20 19:59] LABS: SARS-CoV-2 RNA PCR Negative
== END ==
PROVIDERS: PCP Family Medicine
DX: I48.0 Paroxysmal atrial fibrillation (principal); Z20.822 Contact with and (suspected) exposure to COVID-19
CPT/HCPCS: C9803; U0003; U0005

== ENCOUNTER 2021-05-20 08:20 | Outpatient (CLI) | payer MEDICARE, SELFPAY ==
[2021-05-20 08:50] LABS: Basophils Percent Auto 0.4 % (0.2-1.2); Eosinophils Absolute Auto 0.2 K/mm3 (0-0.3); Eosinophils Percent Auto 2.5 % (0-4.4); Hematocrit 40.8 % (42.0-52.0); Hemoglobin 13.2 g/dL (14.0-18.0); Immature Granulocyte Absolute 0.02 K/mm3 (0.00-0.031); Immature Granulocyte Percent A 0.3 % (0-0.5); Lymphocytes Absolute Auto 0.75 K/mm3 (0.9-3.2); Lymphocytes Percent Auto 11.2 % (18.3-44.2); Mean Corpuscular HGB Conc 32.4 g/dl (32-36); Mean Corpuscular Hemoglobin 30.8 pg (26-34); Mean Corpuscular Volume 95.1 fl (80-100); Mean Platelet Volume 10.2 fl (7.4-10.4); Monocytes Absolute Auto 0.6 K/mm3 (0.1-0.6); Monocytes Percent Auto 9.3 % (2.6-8.5); Neutrophils Absolute Auto 5.1 K/mm3 (1.3-6.7); Neutrophils Percent Auto 76.3 % (45.5-73.1); Platelet Count Result 246 k/mm3 (150-375); Red Blood Count 4.29 M/mm3 (4.6-6.20); White Blood Count 6.7 K/mm3 (4.5-10.0)
[2021-05-20 09:03] LABS: Anion Gap 8 mmol/L (8-16); Blood Urea Nitrogen 17 mg/dL (9-20); Calcium 8.8 mg/dL (8.4-10.2); Carbon Dioxide 28 mmol/L (22-30); Chloride 103 mmol/L (98-107); Estimated Glomerular Filt Rate > 60; Glucose 113 mg/dL (65-110); Potassium 4.7 mmol/L (3.4-5.0); Sodium 139 mmol/L (137-145)
== END 2021-05-20 08:21 | disposition home or self-care (01) ==
PROVIDERS: PCP Family Medicine
DX: I48.0 Paroxysmal atrial fibrillation (principal)
CPT/HCPCS: 36415; 80048; 85025; C9803; U0003; U0005

== ENCOUNTER 2021-06-24 11:38 | Outpatient (CLI) | payer MEDICARE, SELFPAY ==
--- NOTE | ~2021-06-24 | XR_ITS ---
XR chest 2V 06/24/2021 11:54 Indication: Shortness of breath Procedure: 2 view chest Comparison: Comparison to multiple prior studies sequentially, with oldest reviewed study dated 05/28. Findings: Borderline heart size. Pacemaker leads in expected position. Bibasilar airspace disease has developed. Small pleural effusions. Chronic apical pleural thickening/scarring. Impression: 1: Bibasilar airspace disease, compatible with pneumonia. 2: Small pleural effusions. Reviewed, dictated and finalized at location B. OELECTRIC MACHINERY MECHANIC HELPER Impression: 1: Bibasilar airspace disease, compatible with pneumonia. 2: Small pleural effusions.
== END 2021-06-24 11:39 | disposition home or self-care (01) ==
PROVIDERS: PCP Family Medicine; Visit Provider Family Medicine
DX: R06.02 Shortness of breath (principal); J90 Pleural effusion, not elsewhere classified; R91.8 Other nonspecific abnormal finding of lung field
CPT/HCPCS: 71046

== ENCOUNTER 2022-05-19 10:09 | Outpatient (CLI) | payer MEDICARE, SELFPAY ==
[2022-05-19 10:55] LABS: Anion Gap 9 mmol/L (8-16); Blood Urea Nitrogen 20 mg/dL (9-20); Calcium 8.5 mg/dL (8.4-10.2); Carbon Dioxide 26 mmol/L (22-30); Chloride 102 mmol/L (98-107); Estimated Glomerular Filt Rate > 60; Glucose 111 mg/dL (65-110); Potassium 4.9 mmol/L (3.4-5.0); Sodium 137 mmol/L (137-145)
== END 2022-05-19 10:10 | disposition home or self-care (01) ==
LOC: ANHLAB 10:12
PROVIDERS: PCP Family Medicine; Visit Provider Internal Medicine Cardiovascular Disease
DX: I50.22 Chronic systolic (congestive) heart failure (principal)
CPT/HCPCS: 36415; 80048

== ENCOUNTER 2022-11-22 09:15 | Outpatient (CLI) | payer MEDICARE, SELFPAY ==
--- NOTE | ~2022-11-22 | XR_ITS ---
Right wrist Technique: PA and lateral views were obtained. Clinical History: Pain Findings: There is widening of the scapholunate interval to 6-7 mm, consistent with underlying scapho lunate ligament tear and scapholunate dissociation. There is increased scapholunate angle, compatible with developing DISI. There is mild to moderate degenerative change of the radial scaphoid articulat ion. There is mild degenerative change at the STT articulations. Soft tissues are unremarkable. Impression: Scapholunate dissociation, as detailed above, consistent with underlying scapholunate ligament tear. Associated developing DISI, as detailed above. Degenerative changes the radial scaphoid and STT articulations, as noted above. Reviewed, dictated and finalized at location M. Impression: Scapholunate dissociation, as detailed above, consistent with underlying scapho lunate ligament tear. Associated developing DISI, as detailed above. Degenerative changes the radial scaphoid and STT articulations, as noted above.
== END 2022-11-22 09:16 | disposition home or self-care (01) ==
PROVIDERS: PCP Family Medicine; Visit Provider Family Medicine
DX: M19.031 Primary osteoarthritis, right wrist (principal)
CPT/HCPCS: 73100

== ENCOUNTER 2022-12-08 09:31 | Outpatient (CLI) | payer MEDICARE, SELFPAY ==
[2022-12-08 10:12] LABS: Anion Gap 3 mmol/L (8-16); Blood Urea Nitrogen 21 mg/dL (9-20); Calcium 8.2 mg/dL (8.4-10.2); Carbon Dioxide 30 mmol/L (22-30); Chloride 103 mmol/L (98-107); Estimated Glomerular Filt Rate > 60; Glucose 100 mg/dL (65-110); Potassium 4.7 mmol/L (3.4-5.0); Sodium 136 mmol/L (137-145)
== END 2022-12-08 09:32 | disposition home or self-care (01) ==
LOC: ANHLAB 09:32
PROVIDERS: PCP Family Medicine; Visit Provider Internal Medicine Cardiovascular Disease
DX: I50.22 Chronic systolic (congestive) heart failure (principal)
CPT/HCPCS: 36415; 80048

== ENCOUNTER 2023-12-30 12:42 | Outpatient (CLI) | payer MEDICARE, SELFPAY ==
[2023-12-30 14:11] LABS: Alanine Aminotransferase 18 U/L (6-50); Alkaline Phosphatase 109 U/L (38-126); Anion Gap 7 mmol/L (4-12); Aspartate Amino Transferase 27 U/L (17-59); Bilirubin,Total 1.3 mg/dL (0.2-1.3); Blood Urea Nitrogen 18 mg/dL (9-20); Carbon Dioxide 25 mmol/L (22-30); Chloride 103 mmol/L (98-107); Cholesterol 111 mg/dL (0-200); Estimated Glomerular Filt Rate > 60; Glucose 97 mg/dL (65-110); HDL Direct 42 mg/dL; Potassium 4.5 mmol/L (3.4-5.0); Sodium 135 mmol/L (137-145); Triglycerides 63 mg/dL (<150)
[2023-12-30 14:23] LABS: LDL Cholesterol Direct 62 mg/dL
== END 2023-12-30 12:43 | disposition home or self-care (01) ==
PROVIDERS: PCP Family Medicine; Visit Provider Family Medicine
DX: I11.0 Hypertensive heart disease with heart failure (principal); E78.00 Pure hypercholesterolemia, unspecified; Z85.038 Personal history of other malignant neoplasm of large intestine
CPT/HCPCS: 36415; 80053; 80061; 82378

== ENCOUNTER 2024-01-07 11:09 | Outpatient (CLI) | payer MEDICARE, SELFPAY ==
[2024-01-07 12:03] LABS: Rheumatoid Factor < 12.0 IU/ML (<12)
[2024-01-07 12:04] LABS: CRP < 0.5 mg/dL (<1.0)
[2024-01-07 12:10] LABS: Erythrocyte Sedimentation Rate 13 mm/hr (0-20)
[2024-01-13 08:43] LABS: Anti Nuclear Antibody Pattern Cytoplasmic
== END 2024-01-07 11:10 | disposition home or self-care (01) ==
PROVIDERS: PCP Family Medicine; Visit Provider Orthopaedic Surgery
DX: M25.531 Pain in right wrist (principal); M79.641 Pain in right hand
CPT/HCPCS: 36415; 85652; 86038; 86039; 86140; 86430

== ENCOUNTER 2024-07-23 13:07 | Emergency (ER) | payer MEDICARE, SELFPAY ==
--- NOTE | ~2024-07-23 | XR_ITS ---
XR chest 2V Ordering provider: Donna Whitfield APRN History: 84 years Male with . cough x 1 week . Comparison: June 24, 2021 FINDINGS: MEDIASTINUM: The cardiac silhouette is not enlarged. Left bipolar pacemaker. Prominent beatris. LUNGS: No pneumothorax. Opacification the left lung base suggestive of atelectasis versus pneumonia. Minimal opacification the right lung base. Underlying emphysematous changes. OTHER: No free air under the diaphragm. IMPRESSION: Left basilar atelectasis versus pneumonia with pleural effusion. Minimal opacification the right lung base suggestive of atelectasis versus pneumonia. Reviewed, dictated and finalized at location A. BASE SPECIALIST IMPRESSION: Left basilar atelectasis versus pneumonia with pleural effusion. Minimal opacification the right lung base suggestive of atelectasis versus pneu monia.
[2024-07-23 13:34] VITALS: BP 164/79; PULSE 70; RESP 18; TEMP 36.4; O2SAT 97
--- NOTE | 2024-07-23 14:06 | ED_ITS ---
HPI - URI/Sore Throat General Chief Complaint: Upper Respiratory Infection Stated Complaint: Cold Symptoms Time Seen by Provider: 07/23/24 14:06 Source: patient, RN notes reviewed and old records reviewed Mode of arrival: ambulatory Limitations: no limitations History of Present Illness HPI Narrative: 84-year-old male presents to the [facility] with over 1 week of head cold and chest cold per patient. Patient presents with family member States he started taking [place] Cough and cold, symptoms have improved. Related Data Home Medications ?Medication ?Instructions ?Recorded ?Confirmed ?Last Taken ?Type cetirizine 10 mg capsule (Zyrtec) 10 mg PO DAILY 01/01/21 07/06/24 05/06/21 History polyethylene glycol 3350 17 17 g PO DAILY 01/01/21 07/06/24 05/06/21 History gram/dose oral powder (Miralax) apixaban 5 mg tablet (Eliquis) 5 mg PO BID 01/30/21 07/06/24 05/06/21 History furosemide 20 mg tablet 20 mg PO QAM 08/15/22 07/06/24 Unknown History sacubitril 49 mg-valsartan 51 mg 1 tablet PO BID 05/13/24 07/06/24 Unknown History tablet (Entresto) Allergies Allergy/AdvReac Type Severity Reaction Status Date / Time tetracycline Allergy Severe Swelling Verified 07/23/24 13:53 of Lip/Tongue/Throat codeine Allergy Intermediate LIPS SWELL Verified 07/23/24 13:53 Sulfa (Sulfonamide Allergy Intermediate LIPS Verified 07/23/24 13:53 Antibiotics) SWELLING Wheat AdvReac Mild Itching Uncoded 07/23/24 13:53 Review of Systems Review of Systems: All systems reviewed & are unremarkable except as noted in HPI and below Constitutional: Constitutional: Reports no additional constitutional complaints ENT: Reports as per HPI Cardiovascular: Cardiovascular: Reports no additional cardiovascular complaints, Denies chest pain and Denies dyspnea Respiratory: Respiratory: Reports as per HPI, Denies chest congestion, Reports cough and Denies dyspnea Musculoskeletal: Musculoskeletal: Reports no additional musculoskeletal complaints Integumentary/Breasts: Skin/Breast: Reports system reviewed and no additional complaints, except as docu PMFSH Past Medical History Medical History Personal history of colon cancer Nicotine dependence, cigarettes, uncomplicated Paroxysmal atrial fibrillation Vasomotor rhinitis Emphysema, unspecified Presence of automatic (implantable) cardiac defibrillator 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 He is a . He is listed as a full code. The patient denies any alcohol. He states that he is a former smoker. Smoking status: Current every day smoker Second hand tobacco smoke exposure: Yes Alcohol intake: current Alcohol use details: occasional Substance use: never Substance use type: does not use Last use: 2000 Do You Feel Safe in your Home?: Yes Lack of Transportation: No Lack of Food: Never True Current Housing: I Have Housing Concerned About Future Housing: No Difficulty Paying Gas/Electric Bills: No Difficulty Paying for Meds: No Currently Unemployed: No Education: Trade/Vocational Certificate Difficulty w/ Childcare or Family Care: No Living arrangements: alone Occupation/Education: retired Additional occupation/education comments: 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 There is no relevant family history pertinent to the patient complaint. Exam Const: General: cooperative, no acute distress, well developed, alert, ill appearing chronically, tired appearing, uncomfortable and well nourished Nutritional Appearance: well nourished Orientation/consciousness: patient oriented x3 Limitations: no limitations HENMT: Head: normal to inspection Ears: hearing grossly normal bilaterally, external ears normal, TM's normal bilaterally, EAC's normal, mastoids normal and no periauricular adenopathy Mouth: Yes Normal oral and palatal mucosa present, Yes lip normal and Yes moist mucous membranes Throat: posterior oropharynx normal, uvula midline and no uvular edema Eyes: General: appearance normal, both eyes and all related structures Alignment and Position: alignment normal Neck: Neck: normal visual inspection, full ROM, no lymphadenopathy and no meningeal signs Chest: Chest palpation & inspection: normal inspection of the chest Resp: Effort & Inspection: normal respiratory effort and able to speak in complete sentences Auscultation: crackles on the right in the lower lung rodríguez, no rales, no rhonchi and no wheezes Cardio: Rate: regular rate Skin: General skin exam: normal color and no rashes or lesions noted Neuro: General: patient oriented x3, gait normal, moves all extremities and no meningeal signs Cognition (Neuro): normal cognition Speech: normal speech Gait exam (Neuro): Normal gait present Extrem: General: normal to inspection, full ROM, capillary refill normal and n ormal gait Psych: Appearance: grossly normal and well kempt Mental Status: mental status grossly normal Speech and movement: Normal speech and movement present and Clear speech present Affect: normal affect Attitude: cooperative Course Course Level of Care: Express Care Visit Vital Signs Vital signs: Vital Signs Temperature 97.6 F 07/23/24 13:34 Pulse Rate 70 07/23/24 13:34 Respiratory Rate 18 07/23/24 13:34 Blood Pressure 164/79 H 07/23/24 13:34 Pulse Oximetry 97 07/23/24 13:34 Oxygen Delivery Room Air 07/23/24 13:34 Temperature 97.6 F 07/23/24 13:34 Pulse Rate 70 07/23/24 13:34 Respiratory Rate 18 07/23/24 13:34 Blood Pressure 164/79 H 07/23/24 13:34 Pulse Oximetry 97 07/23/24 13:34 Oxygen Delivery Room Air 07/23/24 13:34 Reviewed MDM - URI/Sore Throat MDM Narrative Medical decision making narrative: Patient sitting in exam room. Nontoxic, vitals are stable. Patient presents with 1 week history ?cold symptoms? patient's x-ray shows probable pneumonia, will treat. Patient appropriate for outpatient treatment with follow-up care Discussed with patient and family member that is with him last signs and symptoms for him to go the emergency room with both verbalized understanding Discharge instructions reviewed with patient, as well as provided in writing per nursing staff. The instructions also include specific and strict return/GO TO THE ER as well as f/u information. All questions have been answered, and the patient deny any further questions with discharge and discharge plan. Some parts of this dictation were generated by voice recognition software and may contain typographical and/or grammatical inaccuracies. Differential Diagnosis Differential diagnosis: Likely upper respiratory infection, otitis media, sinusitis, viral infection, bronchitis and other (Pneumonia) Imaging Data Radiologist's impression: XR chest 2V Ordering provider: Donna Whitfield APRN History: 84 years Male with . cough x 1 week . Comparison: June 24, 2021 FINDINGS: MEDIASTINUM: The cardiac silhouette is not enlarged. Left bipolar pacemaker. Prominent beatris. LUNGS: No pneumothorax. Opacification the left lung base suggestive of atelectasis versus pneumonia. Minimal opacification the right lung base. Underlying emphysematous changes. OTHER: No free air under the diaphragm. IMPRESSION: Left basilar atelectasis versus pneumonia with pleural effusion. Minimal opacification the right lung base suggestive of atelectasis versus pneumonia. Critical Care Time Critical Care Time Critical Care Time: No Discharge Plan Discharge Clinical Impression: Atelectasis Pneumonia Qualifiers: Pneumonia type: due to unspecified organism Patient Disposition: Home, Self-Care Condition: Stable Instructions: Antibiotic Form, Pneumonia (ED) Additional Instructions: Take antibiotic as prescribed Follow-up with primary care provider this week for an evaluation and possible repeat chest x-ray Take antibiotic as prescribed If you develop worsening symptoms please go directly to the emergency room. Patient Language: Algerian Prescriptions: New amoxicillin-pot clavulanate 875-125 mg tablet 1 tablet PO Q12H Qty: 14 0RF azithromycin 250 mg tablet See Rx Instructions PO .COMPLEX Qty: 6 0RF Rx Instructions: take 500 mg today (day 1), then 250 mg for 4 days (days 2-5) No Action furosemide 20 mg tablet 20 mg PO QAM Entresto 49-51 mg tablet 1 tablet PO BID ipratropium bromide 21 mcg (0.03 %) spray,non-aerosol 2 spray intranasal BID Qty: 30 1RF polyethylene glycol 3350 [Miralax] 17 gram/dose Powder 17 g PO DAILY Zyrtec 10 mg Capsule 10 mg PO DAILY metoprolol succinate 50 mg Tablet Extended Release 24 Hr 150 mg PO QPM 30 Days Qty: 90 3RF aspirin 81 mg Tablet,Delayed Release (Dr/Ec) 81 mg PO QAM Qty: 30 0RF atorvastatin 40 mg Tablet 80 mg PO DAILY Qty: 30 3RF Eliquis 5 mg Tablet 5 mg PO BID tamsulosin 0.4 mg capsule See Rx Instructions .ROUTE .COMPLEX Qty: 90 1RF Dose Instruction: TAKE 1 CAPSULE BY MOUTH EVERY DAY Rx Instructions: TAKE 1 CAPSULE BY MOUTH EVERY DAY Follow-up/Referrals: Tao Jeffers MD [Primary Care Provider] - 1 Week ([facility] follow-up, blood pressure check, 164/79) Time of Disposition: 14:56
--- OUTSIDE RECORDS SUMMARY | 2024-07-30 20:15 | XMS_ITS | Encounter Summary ---
Author Organization [facility] Healthcare Address [address] [place] [address] Care Team Providers Care Fish Inspector Name Role Phone Tao Jeffers MD Primary Care Provider [phone] Victor M Barnes MD Unavailable [phone] Zane Lopez MD Unavailable [phone] Miscellaneous, Not In File Unavailable Unava ilable Reason for Visit * Cardiology (Routine) - Closed Specialty Diagnoses / Procedures Referred By Contac t Referred To Contact Diagnoses Ischemic cardiomyopathy Procedures DEVICE CHECK - REMOTE Ceasar Rosas MD [address] [address] Phone: tel: fax: [facility] Medical Group Referral ID Status Reason Start Date Expiration Date Visits Re quested Visits Authorized [id number] Closed 09/03/2022 03/03/2024 1 1 Encounter Details Date Type Department Care Team (Latest Contact Info) Description 09/08/2023 7:45 AM SANDER AND POLISHER Ancillary Procedure [facility] Cardiology [address] [facility] [address] [place] [phone] Biventricular implantable cardioverter-defibril lator (ICD) in situ [Z95.810] (Primary Dx); Ischemic cardiomyopathy; Paroxysmal atrial fibrillation (CMS/HCC) (HCC) [I48.0]; Chronic HFrEF (heart failure with reduced ejection fraction) (CMS/HCC) (HCC) [I50.22] Social History Tobacco Use Types Packs/Day Years Used Date Smoking Tobacco: Former Smokeless Tobacco: Never Sex and Gender Information Value Date Recorded Sex Assigned at Not on file Legal Sex Male 12:29 AM SANDER AND POLISHER Gender Identity Not on file Sexual Orientation Not on file documented as of this encounter Plan of Treatment Not on file documented as of this encounter Procedures Procedure Name Priority Date/Time Associated Diagnosis Comments DEVICE CHECK - REMOTE Routine 09/09/2023 9:39 AM SANDER AND POLISHER Ischemic cardiomyopathy documented in this encounter Results * DEVICE CHECK - REMOTE (09/09/2023 9:39 AM SANDER AND POLISHER) Anatomical Region Laterality Modality Other Narrative 11/20/2023 8:10 AM CDT Ji [place] BI-V ICD imp on 05/23/21 for ICM/CHF/PAF, s/p AVN ablation on 06/10/21. ??Cameron (Card-Follows) - Gerry. Routine VVI ICD Remote. Transmission attached. Battery status-Ok, 5.5 years remaining to JIAN. Stable Charge time and Shock impedance. Stable lead impedances, pacing and sensing threshold. Presenting: BIV Paced Bi-V P->98 %. (No) Ventricular tachy arrhythmias detected. ?? Medication: Eliquis, Toprol XL, Entresto. Follow up: [facility]en remote f/u 12/08/2023. Sonia Tomas, RN Ceasar Rosas MD [facility] PRO CEDURES Final Result documented in this encounter Visit Diagnoses Diagnosis 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 [Z95.810]- Primary Ischemic cardiomyopathy Other specified forms of chronic ischemic heart disease Paroxysmal atrial fibrillation (CMS/HCC) (HCC) [I48.0] Atrial fibrillation Chronic HFrEF (heart failure with reduced ejection fraction) (CMS/HCC) (HCC) [I50.22] documented in this encounter Care Teams Fish Inspector Relationship Specialty Start Date End Date Tao Jeffers MD [address] [place] [id number] PCP - General 12/18/11 Victor M Barnes MD [address] [place], [place] [id number] Consulting Physician Cardiology 05/16/21 Zane Lopez MD [address] [place], [place] [id number] Consulting Physician Electrophysiology 05/16/21 Miscellaneous, Not In File 05/23/21 documented as of this encounter
--- OUTSIDE RECORDS SUMMARY | 2024-07-30 20:15 | XMS_ITS | Encounter Summary ---
Author Organization [facility] Address [address] [place] [address] Care Team Providers Care Precision Instrument Maker Name Role Phone Tao Jeffers MD Primary Care Provider [phone] Victor M Barnes MD Unavailable [phone] Zane Lopez MD Unavailable [phone] Miscellaneous, Not In File Unavailable Unava ilable Reason for Referral * Cardiology (Routine) - Closed Specialty Diagnoses / Procedures [facility] Referred To Contact Cardiology Diagnoses Ischemic cardiomyopathy Permanent atrial fibrillation (CMS/HCC) (HCC) S/P AV (atrioventricular) inocente ablation 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 Chronic HFrEF (heart failure with reduced ejection fraction) (CMS/HCC) (HCC) Procedures DEVICE CHECK - IN OFFICE Victor M Barnes MD [address] [place] [address] Phone: tel: fax: [facility] Medical [facility] Referral ID Status Reason Start Date Expiration Date Visits Re quested Visits Authorized [id number] Closed 06/04/2023 07/03/2024 1 1 LSMITH * Cardiology (Routine) - Closed Specialty Diagnoses / Procedures [facility] Referred To Contact Cardiology Diagnoses Ischemic cardiomyopathy Permanent atrial fibrillation (CMS/HCC) (HCC) S/P AV (atrioventricular) inocente ablation 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 Chronic HFrEF (heart failure with reduced ejection fraction) (CMS/HCC) (HCC) Procedures DEVICE CHECK - IN OFFICE Victor M Barnes MD [address] [place] [address] Phone: tel: fax: [facility] Referral ID Status Reason Start Date Expiration Date Visits Re quested Visits Authorized [id number] Closed 06/04/2023 07/03/2024 1 1 LSMITH * Cardiology (Routine) - Closed Specialty Diagnoses / Procedures Referred By Contac t Referred To Contact Cardiology Diagnoses Ischemic cardiomyopathy Permanent atrial fibrillation (CMS/HCC) (HCC) S/P AV (atrioventricular) inocente ablation 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 Chronic HFrEF (heart failure with reduced ejection fraction) (CMS/HCC) (HCC) Procedures DEVICE CHECK - IN OFFICE Victor M Barnes MD [address] [place] [address] Phone: tel: fax: [facility] Medical [facility] Referral ID Status Reason Start Date Expiration Date Visits Re quested Visits Authorized [id number] Closed 06/04/2023 07/03/2024 1 1 LSMITH Encounter Details Date Type Department Care Team (Late st Contact Info) Description 06/04/2023 Orders Only [facility] Cardiology [address] [place] [phone] Victor M Barnes MD [address] [place] [address] [address] [place] [address] Ischemic cardiomyopathy (Primary Dx); Permanent atrial fibrillation (CMS/HCC) (HCC); S/P AV (atrioventricular) inocente ablation; Biventricular implantable cardioverter-defibrillat or (ICD) in situ; Chronic HFrEF (heart failure with reduced ejection fraction) (CMS/HCC) (HCC) Social History Tobacco Use Types Packs/Day Years Used Date Smoking Tobacco: Former Smokeless Tobacco: Never Sex and Gender Information Value Date Recorded Sex Assigned at Not on file Legal Sex Male 12:29 AM JEWELSMITH Gender Identity Not on file Sexual Orientation Not on file documented as of this encounter Plan of Treatment Scheduled Orders Name Type Priority Associated Diagnoses Orde r Schedule DEVICE CHECK - IN OFFICE Cardiac Services Routine Ischemic cardiomyopathy Permanent atrial fibrillation (CMS/HCC) (HCC) S/P AV (atrioventricular) inocente ablation Biventricular implantable cardioverter-defibrilla tor (ICD) in situ Chronic HFrEF (heart failure with reduced ejection fraction) (CMS/HCC) (HCC) Expected: 06/04/2023, Expires: 07/26/2030 DEVICE CHECK - IN OFFICE Cardiac Services Routine Ischemic cardiomyopathy Permanent atrial fibrillation (CMS/HCC) (HCC) S/P AV (atrioventricular) inocente ablation Biventricular implantable cardioverter-defibrilla tor (ICD) in situ Chronic HFrEF (heart failure with reduced ejection fraction) (CMS/HCC) (HCC) Expected: 06/04/2023, Expires: 07/26/2030 DEVICE CHECK - IN OFFICE Cardiac Services Routine Ischemic cardiomyopathy Permanent atrial fibrillation (CMS/HCC) (HCC) S/P AV (atrioventricular) inocente ablation Biventricular implantable cardioverter-defibrilla tor (ICD) in situ Chronic HFrEF (heart failure with reduced ejection fraction) (CMS/HCC) (HCC) Expected: 06/04/2023, Expires: 07/26/2030 documented as of this encounter Visit Diagnoses Diagnosis Ischemic cardiomyopathy- Primary Other specified forms of chronic ischemic heart disease Permanent atrial fibrillation (CMS/HCC) (HCC) Atrial fibrillation S/P AV (atrioventricular) inocente ablation Other postprocedural status 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 Chronic HFrEF (heart failure with reduced ejection fraction) (CMS/HCC) (HCC) documented in this encounter Care Teams Precision Instrument Maker Relationship Specialty Start Date End Date Tao Jeffers MD [address] [place] [address] PCP - General 12/18/11 Victor M Barnes MD [address] [place] [address] Consulting Physician Cardiology 05/16/21 Zane Lopez MD [address] [place] [address] Consulting Physician Electrophysiology 05/16/21 Miscellaneous, Not In File 05/23/21 documented as of this encounter
--- OUTSIDE RECORDS SUMMARY | 2024-07-30 20:15 | XMS_ITS | Encounter Summary ---
Author Organization [facility] Healthcare Address [address] [place] [address] Care Team Providers Care Stock Turner Name Role Phone Tao Jeffers MD Primary Care Provider Victor M Barnes MD Unavailable Zane Lopez MD Unavailable [phone] Miscellaneous, Not In File Unavailable Unava ilable Reason for Visit * Reason Comments Follow-up 4 mo f/u ICD in situ Coronary Artery Disease Encounter Details Date Type Department Care Team (Latest Contact Info) Description 08/19/2023 10:30 AM INDUSTRIAL FAB[employer]IC C[employer]TER Office Visit [facility] Cardiology [address] [place] [address] Victor M Barnes MD [address] [facility] [address] [place], [place] [id number] Coronary artery disease involving lime coronary artery of lime heart without angina pectoris (Primary Dx); Chronic HFrEF (heart failure with reduced ejection fraction) (CMS/HCC) (HCC); Ischemic cardiomyopathy; Paroxysmal atrial fibrillation (CMS/HCC) (HCC); HTN (hypertension), benign; Mixed dyslipidemia; S/P AV (atrioventricular) inocente ablation; S/P coronary artery stent placement; Biventricular implantable cardioverter-defibrillat or (ICD) in situ; Chronic anticoagulation Social History Tobacco Use Types Packs/Day Years Used Date Smoking Tobacco: Former Smokeless Tobacco: Never Sex and Gender Information Value Date Recorded Sex Assigned at Not on file Legal Sex Male 12:29 AM INDUSTRIAL [employer]IC [employer] Gender Identity Not on file Sexual Orientation Not on file documented as of this encounter Last Filed Vital Signs Vital Sign Reading Time Taken Comments Blood Pressure 136/74 08/19/2023 10:54 AM INDUSTRIAL FABRIC C[employer]TER Pulse 70 08/19/2023 10:54 AM INDUSTRIAL FABRIC C[employer]TER Temperature - - Respiratory Rate - - Oxygen Saturation 96% 08/19/2023 10:54 AM INDUSTRIAL FABRIC C[employer]TER Inhaled Oxygen Concentration - - Weight 80.5 kg (177 lb 8 oz) 08/19/2023 10:54 AM INDUSTRIAL FABRIC C[employer]TER Height 180.3 cm (5' 11 ) 08/19/2023 10:54 AM INDUSTRIAL FABRIC C[employer]TER Body Mass Index 24.76 08/19/2023 10:54 AM INDUSTRIAL FABRIC C[employer]TER documented in this encounter Progress Notes * Victor M Barnes MD - 08/19/2023 10:30 AM CST Images from the original note were not included. 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 Fib status post AV junction ablation and biventricular ICD implantation due to persistent refractory atrial fibrillation and intolerable symptoms. Continue current medical therapy and systemic anticoagulation for stroke risk reduction. CHADS2 Vasc score 5. -Continue Eliquis 5 mg BID. Monitor for bleeding. Monitor bright red blood per rectum black dark tarry stools. Notify the office immediately. If head injury, bleeding and or significant fall present to ER via EMS immediately. No anginal symptoms. Exertional dyspnea and fatigue are stable any generally feels well. AggressiveCAD risk modification counseling performed. Continue current medical therapy. Notify office immediately with anginal symptoms. -status post overlapping 4.0 x 35 and 4.0 x 30 mm Orsiro FRIEDA to mid-distal RCA IVUS guided 04/16/21 -continue aspirin 81 mg daily. Monitor for bleeding on Eliquis 5 mg twice daily. BP controlled, goal <140/90mmHg. Monitor BP on routine basis. Call with readings. Continue consistent cardiovascular exercise, weight loss, medication compliance, and low-sodium diet. -continue Entresto 49/51 mg twice daily. He did not tolerate 97/103 mg twice daily. -had vagal response with symptomatic relative hypotension but no syncope. Counseled to maintain hydration and time sexual interactions perhaps prior to taking his meds to avoid low BP. We discussed this at length. He agrees. Lipids personally reviewed 04/21/23 LDL 60, well controlled goal LDL<70. Continue Atorvastatin 80mg qhs therapy and lifestyle modification. Compensated HFrEF possible mixed ischemic and nonischemic etiology. NYHA class II-III. CHF counseling performed. Follow daily weight, less than 2 g daily sodium intake, medication compliance. Call w/wt gain >3lb in 24 hrs or worsening edema and/or CAMACHO. -With combination of PCI and attempts at maintenance of SR, we have seen mild improvement but not robust. -EF 35% by Echo, [facility]. -EF 45% by Echo 09/2021, improved. - Continue Lasix 20 mg daily. Continue routine ICD interrogations as scheduled. Follow-up with electrophysiology as scheduled. -Did not tolerate 97/103mg BID due to dizziness, tolerating Entresto 49/51mg BID. 6. Routine biventricular ICD interrogations. Will refer to Dr. Cao for follow-up and managementof biventricular ICD as his previous machine design checker has left the area. Discussed his options at length. He wishes to follow up with our practice and have his ICD checks transferred to our office. Over 50% of this visit counseling BiV PPM, A.Fib, CHF, CAD, HTN, lipids, medications, lifestyle modification. Follow up in the office in 3 months or sooner as needed. Thank you for allowing me the privilege of participating in the care this very pleasant patient. Please do not hesitate to contact me with any additional questions or concerns. HPI Lm Jimenez is a 83 y.o. male with a PMHx of coronary artery disease s/p PCI in 1999, HTN, colon cancer in 2003, cataracts, BPH, pneumonia a few years ago which required hospitalization and appendectomy. He presented to [facility] on 01/01/2021 under the advice of his PCP for complaintof progressively worsening fatigue and exertional dyspnea and an elevated heart rate in the 150s. He was found to be in AFib with RVR, troponins negative, proBNP 2680, chest x- ray small right pleuraleffusion. Echocardiogram showed moderately reduced LV systolic dysfunction with EF 40-45%. Dr. Barnes met the patient in consultation. Systemic anticoagulation was advised for his CHADS2 Vasc score of 4. Heart rate did not become controlled with oral metoprolol so he proceeded to have a SANDRA guidedcardioversion on 01/03/2021 which was successful on the 2nd shock. He came back to our office on 01/10/2021 and ECG showed that he had reverted back to AFib with RVR so he was loaded on amiodarone. 01/18/21 Hospital follow-up with DIETARY TECH - Lm Jimenez comes to the office today for a hospital follow up visit. He feels better than he did prior to coming into the hospital but does not feel any better at this point than he did when he was discharged. He is still breathless with exertion and doesnot have much energy. In the last couple days he has recorded heart rates up to 120 and he did have1 heart rate recording of 85. He has not been sleeping well but does not necessarily think it is due to orthopnea or PND. He has questions about the type of diet he should be following and side effects of the medication he was put on. Twelve lead ECG performed in the office today was reviewed by me personally and shows atrial fibrillation with rapid ventricular response, PVC, cannot rule out anteroseptal infarct, rate 113 beats per minute 02/11/21 CAT visit-after the last visit, the patient was loaded with amiodarone and presented for a cardioversion on 01/30/2021. It was initially successful but he felt himself go back into AFib 6 days later. Our nursing staff talked him over the phone about pursuing a sleep study to rule out sleep apnea but the patient was hesitant. Since that time pulse checks at home have ranged 89-106 bpm. He states ???I feel good, not short of breath anymore.?? He rode the riding lawn more over the weekendand felt fine. He is going up and down his stairs at home several times a day and feels fine doing this. ECG showed atrial fibrillation with variable ventricular response, rate 92 beats per minute, QTC 475MS 04/08/21 CAT visit-he called the office last week with low BP's and I directed him to reduce lisinopril to 10 mg daily. Since reducing the lisinopril his BP's have been 90s over 60s. Heart rates have been 97-101 bpm.This morning he states he feels ???pooped.?? He is bringing up a lot of white phlegm , states he does have allergies and takes Zyrtec . He denies orthopnea or PND. He can climb up hisstairs although he does get breathless this seems to be staying the same. He is doing yard work. A month ago he had a presyncopal episode: he fell into the yard waste bin head first, got himself up again and sat down in a chair, then felt very lightheaded, it passed in a few minutes and did not recur. He is bleeding easily when he scratches or cuts himself and wants to know if he could reduce theEliquis. 05/01/21 still quite tired SOB with any activity had one day felt better post PCI then back to not feeling well. States life is not on hold, on Amiodarone, and he needs to do something.currently in Brilinta 90mg BID, Eliquis 5mg BID. 07/03/21 Says he is feeling better, less SOB but not a lot. Notes he was started on ABx and diuretics for CXR and concern for pneumonia, thinks diuretics helping him. Able to go up steps better still more SOB than normal walking across parking lot. HAs had some ankle edema improves overnight but notnormal. Told to elevate them he is trying but not really helping. Tight in legs. Having sig nosebleeds, coughing up blood. He tried saline nasal spray and got humidifier working which helped. Using saline gel in nose and definitely helping. Expressed sincerest condolences regarding the recent deathof his . He wants to do more walking and jose noted improvement coming up stairs. Taking Lasix 20mg daily. 09/05/21 Feeling much better states 85-90% better with his SOB, not gone but a lot better since lastvisit. Still bruising and wants to get off what he can when able. No other bleeding. Mild CAMACHO but nothing he can't tolerate and feels this is as good as it will be.PPM LR reduced to 70. Mild edema resolves in AM but more so throughout the day. Now taking diuretics in AM and made a big difference for his nocturia. LAsix 20mg daily. 11/28/21 c/o significant L neck pain, muscular improved with massage. Admits neck problems off and onover the years. Intermittent severe and occ excruciating pain but this has lasted longer than usual. HE wondered about meds contributing says PCP. Has seen chiropractor. NEck better this AM after massage. Breathing is as good as it will be and he is fine with it, no CP, dizziness or bleeding. Laxmi me ds doing well from heart perspective. 04/03/22 Doing ok as far as he knows. Stable, unchanged CAMACHO but mild, no CP or palps. NOtes more prominent dizziness no improvement with motion sickness drugs seeing PCP for this now resolved past 3-4 weeks and that has been the only problem. Needs to get to dentist and have a tooth pulled. No bleeding. He feels pretty well overall, not quite as SOB walking any longer but legs can get tired. Admitsdoes not sleep well, freq awakening and can't get back to sleep denies know sxs or desire to do sleep study some nights he can sleep well. 10/06/22 Feels pretty good he states no new issues, energy is fine, SOB is fine no concerns. No CP, palps, dizziness, bleeding. Laxmi meds. No new concerns. Keeping active no new limitations, yard work tires but rests then keeps going no problems. 02/11/23 Feeling well no new issues or major problems. Occ lightheaded upon standing resolves quickly. Notes was very dizzy, occ SOB but stable no new limitations. Does not sleep well but nothing new.No palps or CP. 08/19/23 Feeling quite well, no CP, SOB, palps, dizziness or falls. No bleeding.laxmi meds. Had dizziness and vision disturbance after sexual experience BP alter 84/46 and hour later 84/48 then hours later improved 110/58 and stable since then. MEDICAL HISTORY Past Medical History: Diagnosis Date Atrial fibrillation (CMS/HCC) (HCC) Cardiomyopathy (HCC) Coronary artery disease Hyperlipidemia Hypertension SOCIAL HISTORY reports that he has quit smoking. He has never used smokeless tobacco. He reports current drug use.Drug: Alcohol. FAMILY HISTORY family history is not on file. MEDICATIONS HOME MEDICATIONS : aspirin (Adult Low Dose Aspirin) 81 mg enteric coated tablet atorvastatin (LIPITOR) 80 mg tablet cetirizine (ZyrTEC) 10 mg tablet Eliquis 5 mg tablet furosemide (LASIX) 20 mg tablet ipratropium (ATROVENT) 21 mcg (0.03 %) nasal spray metoprolol XL (TOPROL-XL) 50 mg extended release tablet sacubitriL-valsartan (ENTRESTO) 49-51 mg tablet tamsulosin (FLOMAX) 0.4 mg extended release capsule ALLERGIES Allergies Allergen Reactions Codeine Swelling Sulfa Unknown Wheat Itching Takes Zyrtec for it REVIEW OF SYSTEMS Review of Systems Constitutional: Positive for weight loss. Negative for decreased appetite, diaphoresis, fever, malaise/fatigue, night sweats and weight gain. HENT: Negative for hearing loss and nosebleeds. Eyes: Negative for blurred vision and pain. Cardiovascular: Positive for dyspnea on exertion. Negative for chest pain, claudication, irregular heartbeat, leg swelling, near-syncope, orthopnea, palpitations, paroxysmal nocturnal dyspnea and syncope. Respiratory: Negative for cough, hemoptysis, shortness of breath, snoring and wheezing. Endocrine: Negative for cold intolerance and heat intolerance. Hematologic/Lymphatic: Negative for bleeding problem. Does not bruise/bleed easily. Skin: Negative for color change, itching, rash and suspicious lesions. Musculoskeletal: Positive for arthritis, joint pain and neck pain. Negative for falls, muscle weakness and myalgias. Gastrointestinal: Negative for abdominal pain, heartburn, hematemesis, melena and nausea. Genitourinary: Negative for dysuria, hematuria and nocturia. Neurological: Negative for excessive daytime sleepiness, dizziness, focal weakness, headaches, light-headedness, loss of balance and weakness. Psychiatric/Behavioral: Negative for altered mental status, depression and memory loss. The patientis not nervous/anxious. Allergic/Immunologic: Negative for environmental allergies. All other systems reviewed and are negative. PHYSICAL EXAM Vitals BP 136/74 (BP Location: Left arm, Patient Position: Sitting) Pulse 70 Ht 180.3 cm (5' 11 ) Wt 80.5 kg (177 lb 8 oz) SpO2 96% BMI 24.76 kg/m?? Weight: 80.5 kg (177 lb 8 oz) Height: 180.3 cm (5' 11 ) Body mass index is 24.76 kg/m??. Physical Exam Vitals reviewed. Constitutional: General: He is not in acute distress. Appearance: Normal appearance. He is well-developed. He is not diaphoretic. HENT: Head: Normocephalic and atraumatic. Right Ear: External ear normal. Left Ear: External ear normal. Nose: Nose normal. Mouth/Throat: Dentition: Normal dentition. Eyes: General: Lids are normal. No scleral icterus. Conjunctiva/sclera: Conjunctivae normal. Neck: Thyroid: No thyromegaly. Vascular: Normal carotid pulses. No carotid bruit, hepatojugular reflux or JVD. Trachea: No tracheal deviation. Cardiovascular: Rate and Rhythm: Tachycardia present. Rhythm irregularly irregular. Pulses: Normal pulses and intact distal pulses. Heart sounds: Normal heart sounds, S1 normal and S2 normal. Heart sounds not distant. No murmur heard. No friction rub. No gallop. No S3 or S4 sounds. Pulmonary: Effort: Pulmonary effort is normal. No respiratory distress. Breath sounds: Normal breath sounds. No wheezing or rales. Chest: Chest wall: No tenderness. Abdominal: General: Bowel sounds are normal. There is no distension. Palpations: Abdomen is soft. There is no mass. Tenderness: There is no abdominal tenderness. There is no guarding or rebound. Musculoskeletal: General: No tenderness or deformity. Normal range of motion. Cervical back: Normal range of motion and neck supple. Right lower leg: No edema. Left lower leg: No edema. Comments: Palpable subcutaneous ICD left anterior chest wall soft, no warmth, erythema, swelling. incision well healed. Lymphadenopathy: Cervical: No cervical adenopathy. Skin: General: Skin is warm and dry. Coloration: Skin is not pale. Findings: No ecchymosis, erythema, petechiae or rash. Nails: There is no clubbing. Neurological: General: No focal deficit present. Mental Status: He is alert and oriented to person, place, and time. Mental status is at baseline. Cranial Nerves: No cranial nerve deficit. Motor: No abnormal muscle tone. Coordination: Coordination normal. Psychiatric: Mood and Affect: Mood normal. Speech: Speech normal. Behavior: Behavior normal. Behavior is cooperative. Thought Content: Thought content normal. Judgment: Judgment normal. LABS AND OTHER DIAGNOSTIC TESTS Results for orders placed or performed in visit on 04/21/23 Basic metabolic panel Result Value Ref Range Sodium 139 135 - 145 mmol/L Potassium, pl 4.7 3.3 - 4.9 mmol/L Chloride 102 97 - 110 mmol/L CO2 28 22 - 32 mmol/L Anion gap 9 2 - 15 mmol/L BUN 17 6 - 25 mg/dL Creatinine 1.02 0.80 - 1.30 mg/dL Glucose 102 70 - 199 mg/dL Calcium 9.5 8.5 - 10.3 mg/dL eGFR Result Value Ref Range eGFR 74 mL/min/1.73 m2 06/11/2021 Procedure Electrophysiology Study Radiofrequency Catheter Ablation of AV Junction Patient History Recurrent AF with rapid ventricular response rates despite medical therapy Method After informed consent had been obtained, the patient was brought to the EP lab in a post-absorptive, non-sedated state. A peripheral IV was in place. Continuous electrocardiography, blood pressure, and pulse oximetry monitoring was initiated and cardioversion patch electrodes were positioned on the chest. Conscious sedation was administered per protocol or anesthesia services, and local anesthesia was given at the access sites. Vascular access was achieved with ultrasound guidance, and sheathswere placed. A multipolar catheter was advanced to the right atrium, His bundle recording position,and the right ventricle. Baseline conduction intervals were performed. RV pacing and capture was confirmed, and antegrade AV function was assessed. Catheter ablation was performed as described below.At the end of the procedure, all catheters and sheaths were removed, hemostasis was achieved with avascular closure device, and the patient was taken to the recovery area in stable condition. The ICD was interrogated and programmed pre- and post-procedure. Parameters were satisfactory, and the device was programmed to its final settings. Access Sites: Right femoral vein: 1 sheath Ablation Using a 3.5 mm tip irrigated ablation catheter, the anterior septum was mapped to achieve a His signal with a maximal amplitude atrial electrogram. RF application resulted in complete heart block. After a waiting period, complete heart block persisted with slow escape rhythm 06/28/21 Interpretation Summary This patient received a [employer] BiV ICD. They had a routine in office transmission on 06/28/2021 Device implant indications: Ischemic cardiomyopathy Interrogation of the patient's device demonstrates the following: Presenting EGM: Bi V paced @ 7 0 bpm Lead Measurements Right Ventricle Left Ventricle Sensitivity (mV) Paced mV Not done mV Impedence (Ohms) 360 ohms 290 ohms Pace Threshold 0.5 V @ 0.5 ms 0.75 V @ 0.5 ms Pacing % 100 % 100 % HV Lead Impedance 36 ohms N/A Battery Status: 7.0 years to JIAN charge time 9.0 seconds Episodes last 90 days/Comments: There were no treated ventricular arrhythmias noted on today's in office device interrogation. NORMAL DEVICE FUNCTION PROGRAMMED Anti-coagulant(s): Eliquis 5 mg twice daily, aspirin 81 mg daily, Brilinta 90 mg twice daily Anti-arrhythmic(s): Toprol-XL 50 mg daily Plan: 1) normal [employer] BiV ICD evaluation 2) [employer] remote transmission scheduled in 3 months. 3) the patient saw his primary care physician for shortness of breath, he did do a chest x-ray and diagnosis pneumonia and put him on a diuretic as well as a antibiotic. 4) I did notice is ankles had at least 1+ pitting edema and I told him to contact his engineering design manager and get a appointment next week. 08/30/21 Interpretation Summary This patient received a [employer] BiV ICD. They had a routine [employer] remote transmission on 08/26/2021. Device implant indications: Ischemic cardiomyopathy, congestive heart failure, paroxysmal atrial fibrillation, status post AV node ablation for AFib with RVR Interrogation of the patient's device demonstrates the following: Presenting EGM: Bi V pace @ 70 bpm Lead Measurements Right Ventricle Left Ventricle Sensitivity (mV) 6.6 mV Not done mV Impedence (Ohms) 380 ohms 400 ohms Pace Threshold .625 V @ .50 ms .625 V @ .50 ms Pacing % 100 % 100 % HV Lead Impedance 36 ohms N/A Battery Status: 6.8-7.3 years to JIAN, charge time 9.0 seconds. Episodes last 90 days/Comments: There were no new ventricular events noted on today's remote interrogation. NORMAL DEVICE FUNCTION PROGRAMMED Anti-coagulant(s): Brilinta 90 mg, Eliquis 5 mg twice daily Anti-arrhythmic(s): Toprol-XL 50 mg Plan: 1) Normal [employer] BiV ICD evaluation 2) [employer] remote transmission scheduled in 3 months. 09/26/21 2D Echo: Conclusions: Mild concentric left ventricular hypertrophy. Mild enlargement of left ventricle cavity. Mild global left ventricular systolic dysfunction. Paradoxical septal motion consistent with RV pacemaker. Ejection fraction is visually estimated at 45 %. Normal appearance of the mitral valve. Moderate mitral annular calcification. Mild mitral valve regurgitation. Normal appearance of the tricuspid valve. Mild pulmonary hypertension based on right ventricular systolic pressure. Estimated peak RVSP is 43 mmHg. Mild tricuspid regurgitation. Ventricular paced rhythm. 11/26/21 Interpretation Summary This patient received a [employer] BiV ICD. They had a routine [employer] remote transmission on 11/25/21. Device implant indications: Ischemic cardiomyopathy, congestive heart failure, paroxysmal atrial fibrillation, status post AV node ablation Interrogation of the patient's device demonstrates the following: Presenting EGM: Bi V pace @ 70 bpm Lead Measurements Right Ventricle Left Ventricle Sensitivity (mV) 9.9 mV Not done mV Impedence (Ohms) 380 ohms 460 ohms Pace Threshold 0.625 V @ 0.50 ms 1.625 V @ 0.50 ms Pacing % 100 % 100 % HV Lead Impedance 43 ohms N/A Battery Status: 6.8-7.4 years to JIAN, charge time 9.0 seconds. Episodes last 90 days/Comments: There were no new ventricular events noted on today's remote interrogation. NORMAL DEVICE FUNCTION PROGRAMMED Anti-coagulant(s): Brilinta 90 mg, Eliquis 5 mg twice daily Anti-arrhythmic(s): Toprol-XL 50 mg Plan: 1) Normal [employer] BiV ICD evaluation 2) [employer] remote transmission scheduled in 3 months. 09/10/22 BiV ICD CHECK (REMOTE) Patient ID: Lm Jimenez is a 82 y.o. male. This patient received a [employer] BiV ICD. They had a routine remote transmission on 09/08/2022 Device implant indications: Ischemic cardiomyopathy Interrogation of the patient's device demonstrates the following: Presenting EGM: Bi V paced @ 70 bpm Original Device Settings Right Ventricle Left Ventricle Sensitivity (mV) Auto mV N/A mV Pacing Outputs 1.625 V @ 0.5 ms 1.625 V @ 0.5 ms Testing Measurements Right Ventricle Left Ventricle Sensitivity (mV) 9.4 mV Not done mV Impedence (Ohms) 360 ohms 430 ohms Pace Threshold 0.625 V @ 0.5 ms 1.125 V @ 0.5 ms Pacing % 100 % 100 % HV Lead Impedance 39 ohms N/A Battery Status: 6.3 years to JIAN, charge time 8.8 seconds. Episodes last 90 days/Comments: There were no treated ventricular arrhythmias noted on today's remote interrogation. NORMAL DEVICE FUNCTION PROGRAMMED MEDICATIONS: Anti-coagulant(s): Eliquis 5 mg twice daily, aspirin 81 mg daily Anti-arrhythmic(s): Toprol-XL 50 mg daily PLAN: 1) normal [employer] BiV ICD evaluation 2) [employer] remote transmission scheduled in 3 months. 3) Programming appropriate for device settings 12/08/22 BiV ICD CHECK (REMOTE) Patient ID: Lm Jimenez is a 82 y.o. male. This patient received a OHARA BiV ICD. They had a routine remote transmission on 12/08/2022 Device implant indications: Ischemic cardiomyopathy, paroxysmal AFib, status post AVJ Interrogation of the patient's device demonstrates the following Presenting EGM: Bi V pace @ 70 bpm Original Device Settings Right Ventricle Left Ventricle Sensitivity (mV) Auto mV N/A mV Pacing Outputs 1.5 V @ 0.50 ms 1.375 V @ 0.50 ms Testing Measurements Right Ventricle Left Ventricle Sensitivity (mV) 7.9 mV Not done mV Impedence (Ohms) 360 ohms 410 ohms Pace Threshold 0.5 V @ 0.5 ms 0.875 V @ 0.50 ms Pacing % 100 % 100 % HV Lead Impedance 41 ohms N/A Battery Status: 6.2-6.6 years to JIAN, charge time 8.6 seconds. Episodes last 90 days/Comments: There were no new ventricular events noted on today's remote interrogation. NORMAL DEVICE FUNCTION PROGRAMMED MEDICATIONS: Anti-coagulant(s): Eliquis 5 mg twice daily, aspirin 81 mg Anti-arrhythmic(s): Toprol-XL 50 mg PLAN: 1) Normal Ohara BiV ICD evaluation 2) Ohara remote transmission scheduled in 3 months. 3) Programming appropriate for device settings Ayla Colon RN 06/05/23 Ohara Rose BI-V ICD imp on 05/23/21 for ICM/CHF/PAF, s/p AVN ablation on 06/10/21. Cameron (Card-FollowsArmin Garrett Supervising MD: Dr Bentley. Office interrogation of VVI ICD demonstrated appropriate device function. Left pectoral incision well approximated without redness, drainage, or edema noted. Battery function-Ok, 5.7 years remaining battery longevity to JIAN. Charge time-8.6 seconds. Appropriate lead measurements noted-see report for results. Presenting rhythm-BIV Paced. Underlying rhythm-Vsensed, regular @ 42 bpm. BIVP->99%. No Ventricular tachy arrhythmias recorded. Medications; Eliquis, Toprol XL, Entresto. No programming changes made to device settings. See scanned report. Office device f/u 06/22/2024. Gerry remote f/u 09/08/2023. I have personally reviewed EKG, electronic medical record, and bloodwork/lipids. Сергей Barnes MD, [facility] This note is dictated and transcribed using RushFiles Software. Ventilation Equipment Tender variancesmay occur. Despite proofreading, typographical errors may occur. 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- Primary Chronic HFrEF (heart failure with reduced ejection fraction) (CMS/HCC) (HCC) Ischemic cardiomyopathy Other specified forms of chronic ischemic heart disease Paroxysmal atrial fibrillation (CMS/HCC) (HCC) Atrial fibrillation HTN (hypertension), benign Essential hypertension, benign Mixed dyslipidemia S/P AV (atrioventricular) inocente ablation Other postprocedural status S/P coronary artery stent placement Postsurgical percutaneous transluminal coronary angioplasty status 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 Chronic anticoagulation Encounter for long-term (current) use of anticoagulants documented in this encounter Care Teams Stock Turner Relationship Specialty Start Date End Date Tao Jeffers MD [address] [place] [address] PCP - General 12/18/11 Victor M Barnes MD [address] [place] [address] Consulting Physician Cardiology 05/16/21 Zane Lopez MD [address] [place] [address] Consulting Physician Electrophysiology 05/16/21 Miscellaneous, Not In File 05/23/21 documented as of this encounter
--- OUTSIDE RECORDS SUMMARY | 2024-07-30 20:15 | XMS_ITS | Encounter Summary ---
Author Organization [facility] Healthcare Address [address] [place] [address] Care Team Providers Care Oil Tank Car Cleaner Name Role Phone Tao Jeffers MD Primary Care Provider [phone] Victor M Barnes MD Unavailable [phone] Zane Lopez MD Unavailable [phone] Miscellaneous, Not In File Unavailable Unava ilable Reason for Visit * Cardiology (Routine) - Closed Specialty Diagnoses / Procedures Referred By Contac t Referred To Contact Diagnoses 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 Procedures DEVICE CHECK - IN OFFICE Zane Lopez MD [address] [address] Phone: tel: fax: [facility] Medical Group Referral ID Status Reason Start Date Expiration Date Visits Re quested Visits Authorized [id number] Closed 06/27/2022 07/27/2023 1 1 Encounter Details Date Type Department Care Team (Latest Contact Info) Description 06/03/2023 2:30 PM FINANCIAL SERVICES EDUCATION CONSULTANT Ancillary Procedure [facility] Medical Group Cardiology [address] [place] [address] S/P AV (atrioventricular) inocente ablation (Primary Dx); Biventricular implantable cardioverter-defibri llator (ICD) in situ; Ischemic cardiomyopathy; Persistent atrial fibrillation (HCC); Congestive heart failure, unspecified HF chronicity, unspecified heart failure type (HCC) Social History Tobacco Use Types Packs/Day Years Used Date Smoking Tobacco: Former Smokeless Tobacco: Never Sex and Gender Information Value Date Recorded Sex Assigned at Not on file Legal Sex Male 12:29 AM FINANCIAL SERVICES EDUCATION CONSULTANT Gender Identity Not on file Sexual Orientation Not on file documented as of this encounter Plan of Treatment Not on file documented as of this encounter Procedures Procedure Name Priority Date/Time Associated Diagnosis Comments DEVICE CHECK - IN OFFICE Routine 06/03/2023 1:53 PM FINANCIAL SERVICES EDUCATION CONSULTANT Biventricular implantable cardioverter-defibri llator (ICD) in situ documented in this encounter Results * DEVICE CHECK - IN OFFICE (06/03/2023 1:53 PM FINANCIAL SERVICES EDUCATION CONSULTANT) Anatomical Region Laterality Modality Other Narrative 06/05/2023 8:14 AM FINANCIAL SERVICES EDUCATION CONSULTANT Ji [place] BI-V ICD imp on 05/23/21 for ICM/CHF/PAF, s/p AVN ablation on 06/10/21. ??Cameron (Card-Follows) - Gerry Supervising MD: Dr Bentley. Office interrogation of [...] See scanned report. Office device f/u 06/22/2024. [place] remote f/u 09/08/2023. Sonia Tomas, RN us Zane Lopez MD CV CARDIAC SERVICES PROCEDU RES Final Result documented in this encounter Visit Diagnoses Diagnosis S/P AV (atrioventricular) inocente ablation- Primary Other postprocedural status 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 Ischemic cardiomyopathy Other specified forms of chronic ischemic heart disease Persistent atrial fibrillation (HCC) Atrial fibrillation Congestive heart failure, unspecified HF chronicity, unspecified heart failure type (HCC) documented in this encounter Care Teams Oil Tank Car Cleaner Relationship Specialty Start Date End Date Tao Jeffers MD [address] [place] [address] PCP - General 12/18/11 Victor M Barnes MD [address] [place], [place] [id number] Consulting Physician Cardiology 05/16/21 Zane Lopez MD [address] [place], [place] [id number] Consulting Physician Electrophysiology 05/16/21 Miscellaneous, Not In File 05/23/21 documented as of this encounter
--- OUTSIDE RECORDS SUMMARY | 2024-07-30 20:15 | XMS_ITS | Referral Summary ---
Author Organization [place] [address] Address [address] [place] [address] Care Team Providers Care Medical Assembler Name Role Phone Tao Jeffers MD Primary Care Provider [phone] Victor M Barnes MD Unavailable Zane Lopez MD Unavailable [phone] Miscellaneous, Not In File Unavailable Unava ilable Encounters Date Type Department Care Team Description 07/29/2024 Telephone [facility] Cardiology [address] [place] [address] [address] [place] [address] Ar Esteves MD Shortness of Breath 07/11/2024 8:30 AM LICENSED CLINICIAN Ancillary Procedure [address] [place] [address] Biventricular implantable cardioverter-defibril lator (ICD) in situ (Primary Dx); Ischemic cardiomyopathy; Paroxysmal atrial fibrillation (CMS/HCC) (HCC); Chronic HFrEF (heart failure with reduced ejection fraction) (CMS/HCC) (HCC); S/P AV (atrioventricular) inocente ablation; Permanent atrial fibrillation (CMS/HCC) (HCC) 07/11/2024 9:15 AM LICENSED CLINICIAN Office Visit [facility] Cardiology [address] [place] [address] [address] [place] [address] Ar Esteves MD Coronary artery disease involving [place] coronary artery of [place] heart without angina pectoris (Primary Dx); Chronic HFrEF (heart failure with reduced ejection fraction) (CMS/HCC) (HCC); Biventricular implantable cardioverter-defibril lator (ICD) in situ; Paroxysmal atrial fibrillation (CMS/HCC) (HCC); HTN (hypertension), benign 05/12/2024 Telephone [facility] Medical Group Cardiology [address] [place] [address] Ar Esteves MD from Last 3 Months Allergies Active Allergy Reactions Criticality Noted Date Comments Codeine Swelling Medium 01/18/2021 Sulfa Unknown 08/19/2023 Wheat Itching Low 01/18/2021 Takes Zyrtec for it Medications tamsulosin (FLOMAX) 0.4 mg extended release capsule Take 1 capsule (0.4 mg total) by mouth every morning 01/04/20 21 Active cetirizine (ZyrTEC) 10 mg tablet Take 1 tablet (10 mg total) by mouth daily Active furosemide (LASIX) 20 mg tablet Take 1 tablet (20 mg total) by mouth as needed 06/24/20 21 Active aspirin (Adult Low Dose Aspirin) 81 mg enteric coated tablet Take 1 tablet (81 mg total) by mouth daily 04/03/20 22 Active ipratropium (ATROVENT) 21 mcg (0.03 %) nasal spray SPRAY TWICE IN EACH NOSTRIL TWICE DAILY DIRECTED Active polyethylene glycol 3350 (MIRALAX ORAL) Take by mouth Active Entresto 49-51 mg tablet TAKE 1 TABLET BY MOUTH TWICE DAILY 60 tablet 11 01/25/20 24 Active apixaban (Eliquis) 5 mg tablet TAKE 1 TABLET(5 MG) BY MOUTH TWICE DAILY 180 tablet 06/22/20 24 Active metoprolol XL (TOPROL-XL) 50 mg extended release tabletIndication s:Persistent atrial fibrillation (HCC) Take 1 tablet (50 mg total) by mouth daily 90 tablet 07/01/20 24 Active atorvastatin (LIPITOR) 80 mg tablet TAKE 1 TABLET(80 MG) BY MOUTH DAILY 90 tablet 3 07/21/20 24 Active metoprolol XL (TOPROL-XL) 50 mg extended release tabletIndication s:Persistent atrial fibrillation (HCC) TAKE 1 TABLET(50 MG) BY MOUTH DAILY 90 tablet 3 06/23/20 23 024 Discontinued(Re order) atorvastatin (LIPITOR) 80 mg tablet Take 1 tablet (80 mg total) by mouth daily 90 tablet 04/18/20 24 024 Discontinued Active Problems Problem Noted Date Diagnosed Date Biventricular implantable ca rdioverter-defibrillator (ICD) in situ 07/03/2021 Overview (02/16/2023): Ji [place] BI-V ICD imp on 05/23/21 for ICM/CHF/PAF, s/p AVN ablation on 06/10/21. Cameron (Card-Follows). Tyra Garrett S/P AV (atrioventricular) inocente ablation 021 Chronic HFrEF (heart failure with reduced ejection fraction) ([facility]) 07/03/2021 Paroxysmal atrial fibrillation ([facility]) Coronary artery disease invo lving [place] coronary artery of [place] heart without angina pectoris 05/01/2021 Cardiomyopathy 05/01/2021 Mixed dyslipidemia 05/01/2021 HTN (hypertension), benign 05/01/2021 Chronic anticoagulation 05/01/2021 S/P coronary artery stent placement 05/01/2021 CAMACHO (dyspnea on exertion) 05/01/2021 Resolved Problems Problem Noted Date Diagnosed Date Resolved Date S/P biventricular cardiac pacemaker procedure 07/03/2007/03/2021 At risk for amiodarone toxic ity with manager long term care use 05/01/2021 07/03/2021 Social History Tobacco Use Types Packs/Day Years Used Date Smoking Tobacco: Former Smokeless Tobacco: Never Tobacco Cessation:Counseling Given: Not Answered Sex and Gender Information Value Date Recorded Sex Assigned at Not on file Legal Sex Male 12:29 AM LICENSED CLINICIAN Gender Identity Not on file Sexual Orientation Not on file Last Filed Vital Signs Vital Sign Reading Time Taken Comments Blood Pressure 150/84 07/11/2024 9:23 AM LICENSED CLINICIAN Pulse 70 07/11/2024 9:23 AM LICENSED CLINICIAN Temperature 2.4 ??C (36.4 ??F) 06/10/2021 11:06 AM CS T Respiratory Rate 16 04/21/2023 9:16 AM CDT Oxygen Saturation 97% 07/11/2024 9:23 AM LICENSED CLINICIAN Inhaled Oxygen Concentration - - Weight 81.2 kg (179 lb) 07/11/2024 9:23 AM LICENSED CLINICIAN Height 180.3 cm (5' 11 ) 07/11/2024 9:23 AM LICENSED CLINICIAN Body Mass Index 24.97 07/11/2024 9:23 AM LICENSED CLINICIAN Plan of Treatment Not on file Medical Devices Implanted Type Area Food Production Manager Device Identifier Shelf Expiration Date Model / Serial / Lot [employer] [id number] System 6-12fr Mvp Venous Closure Vascade - [id number] - [id number] Implanted:Qty : 1 on 06/10/2021 by Zane Lopez MD at [facility] Collagen [employer] 03/20/2023 [id number]-[id number] 0U / [id number] / [id number] Ji Vascular [id number] Defib Cardiac [id number] [place] Hf Df4 Is-4 Is-1 Cnctr - [id number] - [id number] Implanted:Qty : 1 on 05/23/2021 by Zane Lopez MD at [facility] ICD Ji Vascular [id number] 01/23/2023 CDHFA 500Q / [id number] / [employer] 7120q/65 Durata 7fr 65cm 2 Coil Df-4 True Bipolar Active Fixation - [id number] - [id number] Implanted:Qty : 1 on 05/23/2021 by Zane Lopez MD at [facility] Lead [employer] Len [employer] [id number] 02/24/2024 7120Q/65 / [id number] / [employer] 1458q/86 Quartet 5fr [id number] 4 Electrode Is-4 Connector Steerable Tip - [id number] - [id number] Implanted:Qty : 1 on 05/23/2021 by Zane Lopez MD at [facility] Lead [employer] [id number] 02/24/2024 1458Q/86 / [id number] / Procedures Procedure Name Priority Date/Time Associated Diagnosis Comments DEVICE CHECK - IN OFFICE Routine 07/11/2024 7:53 AM LICENSED CLINICIAN Ischemic cardiomyopathy Paroxysmal atrial fibrillation (CMS/HCC) (HCC) from Last 3 Months Results * DEVICE CHECK - IN OFFICE (07/11/2024 7:53 AM LICENSED CLINICIAN) Anatomical Region Laterality Modality Other Narrative 07/13/2024 5:24 PM LICENSED CLINICIAN DivvyHQ BI-V ICD imp on 05/23/21 for ICM/CHF/PAF, s/p AVN ablation on 06/10/21. ??Cameron (Card-Follows) - Gerry. Office VVIR BIV Pacemaker ICD device interrogation performed by [email or web address] company signs and displays sales representative. Transmission attached. Stable lead impedances, pacing and sensing thresholds. Charge time and Shock impedance. Battery voltage- Ok , 8.6 years remaining to JIAN. BIVP-99 %. Presenting rhythm- BIV Paced. No Ventricular arrhythmias detected. ?? Medication: Eliquis, Toprol XL, Entresto. No programming changes made to device settings. See scanned report. [place] remote f/u 10/18/2024. Office device f/u expected in 15 months. Sonia Tomas, RN Victor M Barnes MD [facility] Final Result from Last 3 Months Insurance MEDICARE SOLUTIONS [facility] MEDICARE Address: [facility] [address] [place] [address] MEDICARE SOLUTIONS [facility] MEDICARE Address: [address] [address] [place] [address] [facility] MDCR HMO REF [facility] MEDICARE Address: [address] [address] [place] [address] Care Teams Medical Assembler Relationship Specialty Start Date End Date Tao Jeffers MD [address] [place], [place] [address] PCP - General 12/18/11 Victor M Barnes MD [address] [place], [place] [address] Consulting Physician Cardiology 05/16/21 Zane Lopez MD [address] [place], [place] [address] Consulting Physician Electrophysiology 05/16/21 Miscellaneous, Not In File 05/23/21
--- OUTSIDE RECORDS SUMMARY | 2024-07-30 20:15 | XMS_ITS | Clinical Summary ---
Author Organization [facility] [address] Address [address] [place] [address] Care Team Providers Care Rn Testing Name Role Phone Tao Jeffers MD Primary Care Provider [phone] Victor M Barnes MD Unavailable [phone] Zane Lopez MD Unavailable [phone] Miscellaneous, Not In File Unavailable Unava ilable Allergies Active Allergy Reactions Criticality Noted Date [...] (ICD) in situ 07/03/2021 Overview (02/16/2023): Ji [place] BI-V ICD imp on 05/23/21 for ICM/CHF/PAF, s/p AVN ablation on 06/10/21. Cameron (Card-Follows). Tyra Garrett S/P AV (atrioventricular) inocente ablation 021 Chronic HFrEF (heart failure with reduced ejection fraction) (CMS/HCC) 07/03/2021 Paroxysmal atrial fibrillation (CMS/HCC) 021 Coronary artery disease invo lving [place] coronary artery of [place] heart without angina pectoris 05/01/2021 Cardiomyopathy 05/01/2021 Mixed dyslipidemia 05/01/2021 HTN (hypertension), benign 05/01/2021 Chronic anticoagulation 05/01/2021 S/P coronary artery stent placement 05/01/2021 CAMACHO (dyspnea on exertion) 05/01/2021 Resolved Problems Problem Noted Date Diagnosed Date Resolved Date S/P biventricular cardiac pacemaker procedure 07/03/2007/03/2021 At risk for amiodarone toxic ity with usp use 05/01/2021 07/03/2021 Encounters Date Type Department Care Team Description 07/29/[address] [facility] Medical Group Cardiology [address] [place] [address] Ar Esteves MD Shortness of Breath 07/11/2024 9:15 AM MEDICAL PARASITOLOGIST Office Visit [facility] Medical [facility] Cardiology [address] [place] [address] Ar Esteves MD Coronary artery disease involving [place] coronary artery of [place] heart without angina pectoris (Primary Dx); Chronic HFrEF (heart failure with reduced ejection fraction) (CMS/HCC) (HCC); Biventricular implantable cardioverter-defibril lator (ICD) in situ; Paroxysmal atrial fibrillation (CMS/HCC) (HCC); HTN (hypertension), benign 07/11/2024 8:30 AM MEDICAL PARASITOLOGIST Ancillary Procedure [facility] Medical [facility] Cardiology [address] [place] [address] Biventricular implantable cardioverter-defibril lator (ICD) in situ (Primary Dx); Ischemic cardiomyopathy; Paroxysmal atrial fibrillation (CMS/HCC) (HCC); Chronic HFrEF (heart failure with reduced ejection fraction) (CMS/HCC) (HCC); S/P AV (atrioventricular) inocente ablation; Permanent atrial fibrillation (CMS/HCC) (HCC) 05/12/[address] [facility] Medical [facility] Cardiology [address] [facility] [address] [place] [address] Ar Esteves MD from Last 3 Months Surgical History Surgery Date Site/Laterality Comments CARDIOVERSION CORONARY ANGIOPLASTY 04/15/2000 3x13 mm BMS to prox LAD and 4x28 mm BMS to RCA Medical History Medical History Date Comments Atrial fibrillation (CMS/HCC) (HCC) Hyperlipidemia Hypertension Cardiomyopathy (HCC) Coronary artery disease Social History Tobacco Use Types Packs/Day Years Used Date Smoking Tobacco: Former Smokeless Tobacco: Never Tobacco Cessation:Counseling Given: Not Answered Sex and Gender Information Value Date Recorded Sex Assigned at Not on file Legal Sex Male 12:29 AM MEDICAL PARASITOLOGIST Gender Identity Not on file Sexual Orientation Not on file Obstetrics History Last Filed Vital Signs Vital Sign Reading Time Taken Comments Blood Pressure 150/84 07/11/2024 9:23 AM MEDICAL PARASITOLOGIST Pulse 70 07/11/2024 9:23 AM MEDICAL PARASITOLOGIST Temperature 2.4 ??C (36.4 ??F) 06/10/2021 11:06 AM CS T Respiratory Rate 16 04/21/2023 9:16 AM CDT Oxygen Saturation 97% 07/11/2024 9:23 AM MEDICAL PARASITOLOGIST Inhaled Oxygen Concentration - - Weight 81.2 kg (179 lb) 07/11/2024 9:23 AM MEDICAL PARASITOLOGIST Height 180.3 cm (5' 11 ) 07/11/2024 9:23 AM MEDICAL PARASITOLOGIST Body Mass Index 24.97 07/11/2024 9:23 AM MEDICAL PARASITOLOGIST Plan of Treatment Health Maintenance Due Date Last Done Comments Depression Screening 1941 Pneumococcal vaccine 65+ (1 of 2 - PCV) 1947 Hepatitis B Screening 1959 Zoster Vaccine (1 of 2) 1991 Well Visit 65+ 2006 Fall Risk Assessment 05/23/2022 05/23/2021 Influenza Vaccine (#1) 2024 0, 06/10/2019, 06/04/2018, Additional history exists DTaP/Tdap/Td Vaccine (3 - Td or Tdap) 12/02/2026 12/02/2016, 11/30/2016, 08/03/2013 Medical Devices Implanted Type Area Solar Field Service Technician Device Identifier Shelf Expiration Date Model / Serial / Lot [employer] Inc [id number] System 6-12fr Mvp Venous Closure Vascade - [id number] - [id number] Implanted:Qty : 1 on 06/10/2021 by Zane Lopez MD at [facility] Collagen [employer] 03/20/2023 800-612C-[id number] 0U / [id number] / [id number] Ji Vascular [id number] Defib Cardiac [id number] [place] Hf Df4 Is-4 Is-1 Cnctr - [id number] - [id number] Implanted:Qty : 1 on 05/23/2021 by Zane Lopez MD at [facility] ICD Ji Vascular [id number] 01/23/2023 CDHFA 500Q / [id number] / [employer] 7120q/65 Durata 7fr 65cm 2 Coil Df-4 True Bipolar Active Fixation - [id number] - [id number] Implanted:Qty : 1 on 05/23/2021 by Zane Lopez MD at [facility] Lead [employer] [id number] 02/24/2024 7120Q/65 / [id number] / [employer] 1458q/86 Quartet 5fr [id number] 4 Electrode Is-4 Connector Steerable Tip - [id number] - [id number] Implanted:Qty : 1 on 05/23/2021 by Zane Lopez MD at [facility] Lead [employer] [id number] 02/24/2024 1458Q/86 / [id number] / Procedures Procedure Name Priority Date/Time Associated Diagnosis Comments DEVICE CHECK - IN OFFICE Routine 07/11/2024 7:53 AM MEDICAL PARASITOLOGIST Ischemic cardiomyopathy Paroxysmal atrial fibrillation (CMS/HCC) (HCC) from Last 3 Months Results * DEVICE CHECK - IN OFFICE (07/11/2024 7:53 AM MEDICAL PARASITOLOGIST) Anatomical Region Laterality Modality Other Narrative 07/13/2024 5:24 PM MEDICAL PARASITOLOGIST [employer] [place] BI-V ICD imp on 05/23/21 for ICM/CHF/PAF, s/p AVN ablation on 06/10/21. ??Cameron (Card-Follows) - Gerry. Office VVIR BIV Pacemaker ICD device interrogation performed by [employer] company workforce services representative. Transmission attached. Stable lead impedances, pacing and sensing thresholds. Charge time and Shock impedance. Battery voltage- Ok , 8.6 years remaining to JIAN. BIVP-99 %. Presenting rhythm- BIV Paced. No Ventricular arrhythmias detected. ?? Medication: Eliquis, Toprol XL, Entresto. No programming changes made to device settings. See scanned report. [place] remote f/u 10/18/2024. Office device f/u expected in 15 months. Sonia Tomas, ANTHONY Victor M Barnes MD CV CARDIAC SERVICES PROC EDURES Final Result from Last 3 Months Insurance MEDICARE SOLUTIONS MEDICARE SOLUTIONS Member Subscriber Plan / Payer (Ef fective 2022-Present) Name:Lm Jimenez Relation to Subscriber:Self Name:Lm Jimenez Payer ID:[id number] (NAIC) Type:[facility] MEDICARE Address: [place] [id number] [facility] MDCR HMO REF Care Teams Rn Testing Relationship Specialty Start Date End Date Tao Jeffers MD [address] [place] [address] PCP - General 12/18/11 Victor M Barnes MD [address] [place] [address] Consulting Physician Cardiology 05/16/21 Zane Lopez MD [address] [place] [address] Consulting Physician Electrophysiology 05/16/21 Miscellaneous, Not In File 05/23/21
--- OUTSIDE RECORDS SUMMARY | 2024-07-30 20:15 | XMS_ITS | Encounter Summary ---
Author Organization [facility] Healthcare Address [address] [place] [address] Care Team Providers Care Metallurgist Process Name Role Phone Tao Jeffers MD Primary Care Provider [phone] Victor M Barnes MD Unavailable [phone] Zane Lopez MD Unavailable [phone] Miscellaneous, Not In File Unavailable Unava ilable Reason for Visit * Cardiology (Routine) - Closed Specialty Diagnoses / Procedures Referred By Contac t Referred To Contact Diagnoses Ischemic cardiomyopathy Paroxysmal atrial fibrillation (CMS/HCC) (HCC) Procedures DEVICE CHECK - IN OFFICE Victor M Barnes MD [address] [place] [address] Phone: tel: fax: 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 Medical Group Cardiology [address] [place] [address] Biventricular implantable cardioverter-defibril lator (ICD) in situ (Primary Dx); Ischemic cardiomyopathy; Paroxysmal atrial fibrillation (CMS/HCC) (HCC); Chronic HFrEF (heart failure with reduced ejection fraction) (CMS/HCC) (HCC); S/P AV (atrioventricular) inocente ablation; Permanent atrial fibrillation (CMS/HCC) (HCC) Social History Tobacco Use Types Packs/Day Years Used Date Smoking Tobacco: Former Smokeless Tobacco: Never Sex and Gender Information Value Date Recorded Sex Assigned at Not on file Legal Sex Male 12:29 AM 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 BI-V ICD imp on 05/23/21 for ICM/CHF/PAF, s/p AVN ablation on 06/10/21. ??[place] (Card-Follows) - Gerry. Office VVIR BIV Pacemaker ICD device interrogation performed by [employer] company customer loyalty representative. Transmission attached. Stable lead impedances, pacing and sensing thresholds. Charge time and Shock impedance. Battery voltage- Ok , 8.6 years remaining to JIAN. BIVP-99 %. Presenting rhythm- BIV Paced. No Ventricular arrhythmias detected. ?? Medication: Eliquis, Toprol XL, Entresto. No programming changes made to device settings. See scanned report. [place]erry remote f/u 10/18/2024. Office device f/u expected in 15 months. Sonia Tomas RN Victor M Barnes MD [facility] C[facility] PROC EDURES Final Result documented in this encounter Visit Diagnoses Diagnosis 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- Primary Ischemic cardiomyopathy Other specified forms of chronic ischemic heart disease Paroxysmal atrial fibrillation (CMS/HCC) (HCC) Atrial fibrillation Chronic HFrEF (heart failure with reduced ejection fraction) (CMS/HCC) (HCC) S/P AV (atrioventricular) inocente ablation Other postprocedural status Permanent atrial fibrillation (CMS/HCC) (HCC) Atrial fibrillation documented in this encounter Care Teams Metallurgist Process Relationship Specialty Start Date End Date Tao Jeffers MD [address] [place] [address] PCP - General 12/18/11 Victor M Barnes MD [address] [place] [address] Consulting Physician Cardiology 05/16/21 Zane Lopez MD [address] [place] [address] Consulting Physician Electrophysiology 05/16/21 Miscellaneous, Not In File 05/23/21 documented as of this encounter
--- OUTSIDE RECORDS SUMMARY | 2024-07-30 20:15 | XMS_ITS | Encounter Summary ---
Author Organization [facility] Healthcare Address [address] [place] [address] Care Team Providers Care Cartridge Belt Puncher Name Role Phone Tao Jeffers MD Primary Care Provider [phone] Victor M Barnes MD Unavailable [phone] Zane Lopez MD Unavailable Miscellaneous, Not In File Unavailable Unava ilable Reason for Visit * Cardiology (Routine) - Closed Specialty Diagnoses / Procedures Referred By Contac t Referred To Contact Diagnoses Ischemic cardiomyopathy Procedures DEVICE CHECK - REMOTE Ceasar Rosas MD [address] [address] Phone: tel: fax: [facility] Medical Group Referral ID Status Reason Start Date Expiration Date Visits Re quested Visits Authorized [id number] Closed 09/03/2022 03/03/2024 1 1 Encounter Details Date Type Department Care Team (Latest Contact Info) Description 12/08/2023 8:45 AM CDT Ancillary Procedure [facility] Medical Group Cardiology [address] [facility] [address] [place] [phone] Atrial fibrillation, permanent (CMS/HCC) (HCC) [I48.21] (Primary Dx); Ischemic cardiomyopathy; S/P AV (atrioventricular) inocente ablation [Z98.890]; Chronic HFrEF (heart failure with reduced ejection fraction) (CMS/HCC) (HCC) [I50.22]; Biventricular implantable cardioverter-defibr illator (ICD) in situ [Z95.810] Social History Tobacco Use Types Packs/Day Years Used Date Smoking Tobacco: Former Smokeless Tobacco: Never Sex and Gender Information Value Date Recorded Sex Assigned at Not on file 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 ??[place] (Card-Follows) - [place]. Routine VVI ICD Remote. Transmission attached. Battery status-Ok, 5.4 years remaining to JIAN. Stable Charge time and Shock impedance. Stable lead impedances, pacing and sensing threshold. Presenting: BIV Paced Bi-V P->98 %. (No) Ventricular tachy arrhythmias detected. ?? Medication: Eliquis, Toprol XL, Entresto. Follow up: [place] remote f/u 03/08/2024. Sonia Tomas RN us Ceasar Rosas MD CV CARDIAC SERVICES PRO CEDURES Final Result documented in this encounter Visit Diagnoses Diagnosis Atrial fibrillation, permanent (CMS/HCC) ([facility]) [I48.21]- Primary Ischemic cardiomyopathy Other specified forms of chronic ischemic heart disease S/P AV (atrioventricular) inocente ablation [Z98.890] Other postprocedural status Chronic HFrEF (heart failure with reduced ejection fraction) (CMS/HCC) (HCC) [I50.22] 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 [Z95.810] documented in this encounter Care Teams Cartridge Belt Puncher Relationship Specialty Start Date End Date Tao Jeffers MD [address] [place] [address] PCP - General 12/18/11 Victor M Barnes MD [address] [place] [address] Consulting Physician Cardiology 05/16/21 Zane Lopez MD [address] [place] [id number] Consulting Physician Electrophysiology 05/16/21 Miscellaneous, Not In File 05/23/21 documented as of this encounter
--- OUTSIDE RECORDS SUMMARY | 2024-07-30 20:15 | XMS_ITS | Encounter Summary ---
Author Organization [facility] Healthcare Address [address] [place] [address] Care Team Providers Care Celery Packer Name Role Phone Tao Jeffers MD Primary Care Provider [phone] Victor M Barnes MD Unavailable Zane Lopez MD Unavailable Miscellaneous, Not In File Unavailable Unava ilable Encounter Details Date Type Department Care Team (Late st Contact Info) Description 05/12/2024 Telephone [facility] Medical Group Cardiology [address] [address] Ar Esteves MD [address] [place] [address] Social History Tobacco Use Types Packs/Day Years Used Date Smoking Tobacco: Former Smokeless Tobacco: Never Sex and Gender Information Value Date Recorded Sex Assigned at Not on file Legal Sex Male 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 Requested that we reschedule appt to 07-11-24 at 8:30am. He is seeing Dr. Esteves at 9:15am. Had to LMOR. documented in this encounter Plan of Treatment Not on file documented as of this encounter Visit Diagnoses Not on filedocumented in this encounter Care Teams Celery Packer Relationship Specialty Start Date End Date Tao Jeffers MD [address] [place] [address] PCP - General 12/18/11 Victor M Barnes MD [address] [place] [address] Consulting Physician Cardiology 05/16/21 Zane Lopez MD [address] [place], [place] [phone] Consulting Physician Electrophysiology 05/16/21 Miscellaneous, Not In File 05/23/21 documented as of this encounter
--- OUTSIDE RECORDS SUMMARY | 2024-07-30 20:15 | XMS_ITS | Encounter Summary ---
Author Organization [facility] Healthcare Address [address] [place] [address] Care Team Providers Care Preventive Medicine Specialist Name Role Phone Tao Jeffers MD Primary Care Provider [phone] Victor M Barnes MD Unavailable Zane Lopez MD Unavailable [phone] Miscellaneous, Not In File Unavailable Unava ilable Encounter Details Date Type Department Care Team (Late st Contact Info) Description 08/31/2023 Telephone [facility] Cardiology [address] [place] [address] Victor M Barnes MD [address] [id number] Social History Tobacco Use Types Packs/Day Years Used Date Smoking Tobacco: Former Smokeless Tobacco: Never Sex and Gender Information Value Date Recorded Sex Assigned at Not on file Legal Sex Male 12:29 AM DATABASE ADMINISTRATOR Gender Identity Not on file Sexual Orientation Not on file documented as of this encounter Miscellaneous Notes * Telephone Encounter - Sonia Tomas RN - 09/04/2023 2:29 PM CST Noted. BASE ADMINISTRATOR * Telephone Encounter - Kacyee Marroquin MA - 09/01/2023 1:44 PM CST Pt returned call, he states that the evan did just as it did before, no name and info but then he looked at it later and it states low battery to connect to zinc furnace charger. I explained to him that the website shows that the evan is communicating and he is scheduled for a remote download 09-08-23. So I explained that I will review the website tomorrow and make sure it's communication. Pt verbalizes understanding BASE ADMINISTRATOR * Telephone Encounter - Kaycee Marroquin MA - 09/01/2023 1:39 PM CST Returned call to pt, had to LMOR requesting a return call BASE ADMINISTRATOR * Telephone Encounter - Sonia Tomas RN - 09/01/2023 1:08 PM CST Kaycee please call patient about his remote evan. He may need an appointment in the office and have an Ji rep there to assist him with his remote. BASE ADMINISTRATOR * Telephone Encounter - Keyana Moreno RN - 09/01/2023 12:11 PM CST See below please BASE ADMINISTRATOR * Telephone Encounter - Dory Lester - 09/01/2023 12:06 PM DATABASE ADMINISTRATOR Pt is still having issues with the [employer] evan, pt is requesting a call back to discuss. [phone] BASE ADMINISTRATOR * Telephone Encounter - Sonia Tomas RN - 08/31/2023 2:10 PM CST Noted, thank you. BASE ADMINISTRATOR * Telephone Encounter - Kaycee Marroquin MA - 08/31/2023 2:01 PM CST Returned call to pt. Turns out pt is having difficulty with the [employer] evan. Has not communicated since 05-26-2023. I conferenced Ji into the phone call so that pt could speak with them directly. Will monitor BASE ADMINISTRATOR * Telephone Encounter - Sonia Tomas RN - 08/31/2023 12:40 PM CST Kaycee will you call patient and assist with his monitor? Thank you. BASE ADMINISTRATOR * Telephone Encounter - Keyana Moreno RN - 08/31/2023 12:14 PM CST See below BASE ADMINISTRATOR * Telephone Encounter - Joyce Roblero - 08/31/2023 12:11 PM CST Pt states he is having issues with pace maker phone. Pt states it keeps showing it is locked up . Pt requesting a call back to further discuss. Contact:[phone] BASE ADMINISTRATOR documented in this encounter Plan of Treatment Not on file documented as of this encounter Visit Diagnoses Not on filedocumented in this encounter Care Teams Preventive Medicine Specialist Relationship Specialty Start Date End Date Tao Jeffers MD [address] [place], [place] [address] PCP - General 12/18/11 Victor M Barnes MD [address] [place] [address] Consulting Physician Cardiology 05/16/21 Zane Lopez MD [address] [place] [address] Consulting Physician Electrophysiology 05/16/21 Miscellaneous, Not In File 05/23/21 documented as of this encounter
--- OUTSIDE RECORDS SUMMARY | 2024-07-30 20:15 | XMS_ITS | Encounter Summary ---
Author Organization [facility] Medical Group Address [address] [facility] [address] [place] [address] Care Team Providers Care Plate Maker Name Role Phone Tao Jeffers MD Primary Care Provider [phone] Victor M Barnes MD Unavailable [phone] Zane Lopez MD Unavailable Miscellaneous, Not In File Unavailable Unava ilable Encounter Details Date Type Department Care Team (Late st Contact Info) Description 04/21/2023 Telephone [facility] Medical Group Cardiology [address] [address] Freddie Cao MD [address] [place] [address] [place] [address] Social History Tobacco Use Types Packs/Day Years Used Date Smoking Tobacco: Former Smokeless Tobacco: Never Sex and Gender Information Value Date Recorded Sex Assigned at Not on file 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 Reviewed message from Dr. Cao. He verbalized understanding. * Telephone Encounter - Joycelyn Ortega RN - 04/21/2023 12:[address] Cao, Whenever able to, please let Mr. Jimenez know okay to continue Eliquis at current dosing as this can treat function his great. documented in this encounter Plan of Treatment Not on file documented as of this encounter Visit Diagnoses Not on filedocumented in this encounter Care Teams Plate Maker Relationship Specialty Start Date End Date Tao Jeffers MD [address] [place], [place] [phone] PCP - General 12/18/11 Victor M Barnes MD [address] [place], [place] [phone] Consulting Physician Cardiology 05/16/21 Zane Lopez MD [address] [place], [place] [phone] Consulting Physician Electrophysiology 05/16/21 Miscellaneous, Not In File 05/23/21 documented as of this encounter
--- OUTSIDE RECORDS SUMMARY | 2024-07-30 20:15 | XMS_ITS | Encounter Summary ---
Author Organization [facility] Healthcare Address [address] [place] [address] Care Team Providers Care Head Neck Surgeon Name Role Phone Tao Jeffers MD Primary Care Provider [phone] Victor M Barnes MD Unavailable Zane Lopez MD Unavailable Miscellaneous, Not In File Unavailable Unava ilable Reason for Visit * Reason Comments Follow-up 3 mo f/u Coronary Artery Disease Encounter Details Date Type Department Care Team (Late st Contact Info) Description 11/11/2023 10:45 AM CDT Office Visit [facility] Medical Group Cardiology [address] [place] [address] Victor M Barnes MD [address] [facility] [address] [place], [place] [id number] Coronary artery disease involving assiniboine and gros ventre tribes coronary artery of assiniboine and gros ventre tribes heart without angina pectoris (Primary Dx); Chronic HFrEF (heart failure with reduced ejection fraction) (CMS/HCC) (HCC); Paroxysmal atrial fibrillation (CMS/HCC) (HCC); HTN (hypertension), benign; Mixed dyslipidemia; Biventricular implantable cardioverter-defibril lator (ICD) in situ; Chronic anticoagulation; S/P AV (atrioventricular) inoecnte ablation; S/P coronary artery stent placement Social History Tobacco Use Types Packs/Day Years Used Date Smoking Tobacco: Former Smokeless Tobacco: Never Sex and Gender Information Value Date Recorded Sex Assigned at Not on file Legal Sex Male 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 Gender Identity Not on file Sexual Orientation Not on file documented as of this encounter Last Filed Vital Signs Vital Sign Reading Time Taken Comments Blood Pressure 112/62 11/11/2023 10:52 AM CDT Pulse 87 11/11/2023 10:52 AM CDT Temperature - - Respiratory Rate - - Oxygen Saturation 99% 11/11/2023 10: 52 AM CDT Inhaled Oxygen Concentration - - Weight 79.3 kg (174 lb 12.8 oz) 024 10:52 AM CDT Height 180.3 cm (5' 11 ) 11/11/2023 10: 52 AM CDT Body Mass Index 24.38 11/11/2023 10:52 AM CDT documented in this encounter Progress Notes * Victor M Barens MD - 11/11/2023 10:45 AM CDT Images from the original note were not included. DATE OF VISIT: 11/11/2023 CHIEF COMPLAINT Chief Complaint Patient presents with Follow-up 3 mo f/u Coronary Artery Disease ASSESSMENT Diagnoses and all orders for this visit: Coronary artery disease involving assiniboine and gros ventre tribes coronary artery of assiniboine and gros ventre tribes heart without angina pectoris (Primary) Chronic HFrEF (heart failure with reduced ejection fraction) (CMS/HCC) (HCC) Paroxysmal atrial fibrillation (CMS/HCC) (HCC) HTN (hypertension), benign Mixed dyslipidemia 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 Chronic anticoagulation S/P AV (atrioventricular) inocente ablation S/P coronary artery stent placement PLAN/RECOMMENDATIONS Stable, persistent A. Fib status post [...] head injury, bleeding and or significant fall presentto ER via EMS immediately. No anginal symptoms. Exertional dyspnea and fatigue are stable any generally feels well. AggressiveCAD risk modification counseling performed. Continue current medical therapy. Notify office immediately with anginal symptoms. -s/p overlapping 4.0 x 35 and 4.0 x [...] did not tolerate 97/103 mg twice daily. Lipids personally reviewed 04/21/23 LDL 60, well controlled goal LDL<70. Continue Atorvastatin 80mg qhs therapy and lifestyle modification. Compensated HFrEF possible mixed ischemic and nonischemic etiology. NYHA class II-III. CHF counseling performed. Follow daily weight, less than 2 g daily sodium intake, medication compliance. Call w/wt gain >3lb in 24 hrs or worsening edema and/or CAMACHO. -EF 35% by Echo, [facility]. -EF 45% by Echo 09/2021, improved. - Continue Lasix 20 mg daily. Continue routine ICD interrogations as scheduled. -Did not tolerate 97/103mg BID due to dizziness, tolerating Entresto 49/51mg BID. Continue for now. 6. Routine biventricular ICD interrogations. Follow with Dr. Cao for follow- up and management of biventricular ICD. Over 50% of this visit counseling BiV PPM, A.Fib, CHF, CAD, HTN, lipids, medications, lifestyle modification. Follow up in the office in 8 months or sooner as needed. Dr Esteves. Thank you for allowing me the privilege of participating in the care this very pleasant patient. Please do not hesitate to contact me with any additional questions or concerns. EUN Jimenez is a 83 y.o. male with a PMHx of coronary artery disease s/p PCI in 1999, HTN, colon cancer in 2003, cataracts, BPH, pneumonia a few years ago which required hospitalization and appendectomy. He presented to [facility] on 01/01[facility]2021 under the advice of his [...] loaded on amiodarone. 01/18/21 Hospital follow-up with SODIUM METHYLATE OPERATOR - Lm Jimenez comes to the office [...] later improved 110/58 and stable since then. 11/11/23 Feeling well again, not exercising much but tried walking a mile with his friend and mild SOB, legs tired but did ok, mows lawn riding does fine. Rests on occ but no new issues but he is cautious not to overdo it. MEDICAL HISTORY Past Medical History: Diagnosis Date [...] XL (TOPROL-XL) 50 mg extended release tablet polyethylene glycol 3350 (MIRALAX ORAL) sacubitriL-valsartan (ENTRESTO) 49-51 mg tablet tamsulosin (FLOMAX) [...] and are negative. PHYSICAL EXAM Vitals BP 112/62 (BP Location: Left arm, Patient Position: Sitting) Pulse 87 Ht 180.3 cm (5' 11 ) Wt 79.3 kg (174 lb 12.8 oz) SpO2 99% BMI 24.38 kg/m?? Weight: 79.3 kg (174 lb 12.8 oz) Height: 180.3 cm (5' 11 ) Body mass index is 24.38 kg/m??. Physical Exam Vitals reviewed. Constitutional: General: [...] and I told him to contact his medical support specialist and get a appointment next week. 08/30/21 [...] [employer] BiV ICD. They had a routine [employer] remote transmission on 11/25/21. Device implant indications: [...] device settings Ayla Colon RN 06/05/23 [employer] BI-V ICD imp on 05/23/21 for ICM/CHF/PAF, s/p AVN ablation on 06/10/21. [place] (Card-Follows) - Gerry Supervising MD: Dr Bentley. [...] medical record, and bloodwork/lipids. Сергей Barnes MD, [facility] This note is dictated and transcribed using [employer] Software. Custom Furrier variancesmay occur. Despite proofreading, typographical errors may occur. documented in this encounter Plan of Treatment Not on file documented as of this encounter Visit Diagnoses Diagnosis Coronary artery disease involving assiniboine and gros ventre tribes coronary artery of assiniboine and gros ventre tribes heart without angina pectoris- Primary Chronic HFrEF (heart failure with reduced ejection fraction) (CMS/HCC) (HCC) Paroxysmal atrial fibrillation (CMS/HCC) (HCC) Atrial fibrillation HTN (hypertension), benign Essential hypertension, benign Mixed dyslipidemia 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 Chronic anticoagulation Encounter for long-term (current) use of anticoagulants S/P AV (atrioventricular) inocente ablation Other postprocedural status S/P coronary artery stent placement Postsurgical percutaneous transluminal coronary angioplasty status documented in this encounter Historical Medications * This list may reflect changes made after this encounter. polyethylene glycol 3350 (MIRALAX ORAL) Take by mouth added in this encounter Care Teams Head Neck Surgeon Relationship Specialty Start Date End Date Tao Jeffers MD [address] [place] [address] PCP - General 12/18/11 Victor M Barnes MD [address] [place] [address] Consulting Physician Cardiology 05/16/21 Zane Lopez MD [address] [place] [address] Consulting Physician Electrophysiology 05/16/21 Miscellaneous, Not In File 05/23/21 documented as of this encounter
--- OUTSIDE RECORDS SUMMARY | 2024-07-30 20:15 | XMS_ITS | Encounter Summary ---
Author Organization [facility] Healthcare Address [address] [place] [address] Care Team Providers Care Health Care Marketing Specialist Name Role Phone Tao Jeffers MD Primary Care Provider [phone] Victor M Barnes MD Unavailable Zane Lopez MD Unavailable Miscellaneous, Not In File Unavailable Unava ilable Encounter Details Date Type Department Care Team (Late st Contact Info) Description 04/21/2023 9:55 AM CDT Lab [address] [address] Chronic HFrEF (heart failure with reduced ejection fraction) (CMS/HCC) ([facility]) Social History Tobacco Use Types Packs/Day Years Used Date Smoking Tobacco: Former Smokeless Tobacco: Never Sex and Gender Information Value Date Recorded Sex Assigned at Not on file Legal Sex Male 12:29 AM 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 DESIGN 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 73 m2 JADIEL CALHOUN Comment: Interpretive Data Reference Interval Normal ?>/= 90 mL/min/1.73m2 Mildly decreased* ? 60 - 89 mL/min/1.73m2 Mildly to moderately decreased ?45 - 59 mL/min/1.73m2 Moderately to severely decreased ??30 - 44 mL/min/1.73m2 Severely decreased ?15 - 29 mL/min/1.73m2 Kidney Failure ?< 15 ??mL/min/1.73m2 *Relative to young adult level Estimated glomerular filtration rate is determined by the 2020 CKD-EPI equation recommended by the National Kidney Foundation (A Unifying Approach to GFR Estimation: Recommendations of the NKF-ASK Task Force on Reassessing the Inclusion of Race in Diagnosing Kidney Disease, JASN 2020). The CKD-EPI equation should not be used for patients with unstable renal function and has not been validated in children and those over 70. Current interpretive data was last reviewed 2021. Testing performed by: [facility], [place] [address] Blood 04/21/2023 10:0 1 AM CDT 04/21/2023 10:05 AM CDT Freddie Cao MD LAB BLOOD ORDERABLES F inal Result JADIEL [address] [address] Department [place] [address] * Basic metabolic panel (04/21/2023 10:01 AM CDT) Sodium 139 135 - 145 mmol/L JADIEL CALHOUN Comment:Testing performed by : [facility], [place] [address] Potassium, pl 4.7 3.3 - 4.9 mmol/L CERNER Comment:Testing performed by : [facility] [place] [address] Chloride 102 97 - 110 mmol/L CERNER Comment:Testing performed by : [facility] [place] [place] [address] CO2 28 22 - 32 mmol/L CERNER CH Comment:Testing performed by : [facility] [place] [address] Anion gap 9 2 - 15 mmol/L CERNER Comment:Testing performed by : [facility] [place] [address] BUN 17 6 - 25 mg/dL CERNER Comment:Testing performed by : [facility] [place] [address] Creatinine 1.02 0.80 - 1.30 mg/dL CERNER Comment:Testing performed by : [facility] [place] [address] Glucose 102 70 - 199 mg/dL CERNER Comment: Interpretive Data Fasting glucose >/= 126 mg/dl is diagnostic for diabetes. ?? Fasting is defined as no caloric intake for at least 8 hours. Fasting glucose between 100 mg/dl to 125 mg/dl is diagnostic of prediabetes. In a patient with classic symptoms of hyperglycemia or hyperglycemic crisis, a random glucose >/= 200 mg/dl is diagnostic for diabetes. In the absence of unequivocal hyperglycemia, results should be confirmed by repeat testing. The classification and Diagnosis of Diabetes Diabetes Care 202; 46: S19-S40. Current interpretive data was last revised 2022. Testing performed by: [facility] [place] [address] Calcium 9.5 8.5 - 10.3 mg/dL CERNER Comment:Testing performed by : [facility] [place] [address] Blood 04/21/2023 10:0 1 AM CDT 04/21/2023 10:05 AM CDT Freddie Cao MD LAB BLOOD ORDERABLES F inal Result [facility] [address] [address] Department [place] [address] documented in this encounter Visit Diagnoses Diagnosis Chronic HFrEF (heart failure with reduced ejection fraction) (CMS/HCC) (HCC) documented in this encounter Care Teams Health Care Marketing Specialist Relationship Specialty Start Date End Date Tao Jeffers MD [address] [place] [address] PCP - General 12/18/11 Victor M Barnes MD [address] [place], [place] [id number] Consulting Physician Cardiology 05/16/21 Zane Lopez MD [address] [place] [address] Consulting Physician Electrophysiology 05/16/21 Miscellaneous, Not In File 05/23/21 documented as of this encounter
--- OUTSIDE RECORDS SUMMARY | 2024-07-30 20:15 | XMS_ITS | Encounter Summary ---
Author Organization [facility] Healthcare Address [address] [place] [address] Care Team Providers Care Medical Professionals Name Role Phone Tao Jeffers MD Primary Care Provider [phone] Victor M Barnes MD Unavailable [phone] Zane Lopez MD Unavailable [phone] Miscellaneous, Not In File Unavailable Unava ilable Reason for Visit * Cardiology (Routine) - Pending Review Specialty Diagnoses / Procedures Referred By Contac t Referred To Contact Diagnoses Paroxysmal atrial fibrillation (CMS/HCC) (HCC) Ischemic cardiomyopathy Procedures DEVICE CHECK - REMOTE Victor M Barnes MD [address] [place] [id number] Phone: tel: fax: [facility] Medical Group Referral ID Status Reason Start Date Expiration Date V isits Requested Visits Authorized [id number] Pending Review 02/13/2023 08/16/2024 1 1 Encounter Details Date Type Department Care Team (Latest Contact Info) Description 03/08/2024 9:15 AM CDT Ancillary Procedure [facility] Medical [facility] Cardiology [address] [place] [id number] H/O atrioventricular inocente ablation (Primary Dx); Paroxysmal atrial fibrillation (CMS/HCC) (HCC); Ischemic cardiomyopathy; Chronic HFrEF (heart failure with reduced ejection fraction) (CMS/HCC) (HCC); Biventricular implantable cardioverter-defibrilla tor (ICD) in situ Social History Tobacco Use Types Packs/Day Years Used Date Smoking Tobacco: Former Smokeless Tobacco: Never Sex and Gender Information Value Date Recorded Sex Assigned at Not on file Legal Sex Male 12:29 AM RIB BUILDER Gender Identity Not on file Sexual Orientation Not on file documented as of this encounter Plan of Treatment Not on file documented as of this encounter Procedures Procedure Name Priority Date/Time Associated Diagnosis Comments DEVICE CHECK - REMOTE Routine 03/09/2024 8:06 AM CDT Paroxysmal atrial fibrillation (CMS/HCC) (HCC) Ischemic cardiomyopathy documented in this encounter Results * DEVICE CHECK - REMOTE (03/09/2024 8:06 AM CDT) Anatomical Region Laterality Modality Other Narrative 03/16/2024 12:58 PM CDT Ji Thompson BI-V ICD imp on 05/23/21 for ICM/CHF/PAF, s/p AVN ablation on 06/10/21. Cameron (Card-Follows). [facility] Routine VVIR ICD Remote. Transmission attached. Battery status 67%, 5.2-5.5 years remaining battery life to JIAN. Stable Charge time and Shock impedance. Stable lead impedances, pacing, and sensing threshold. Presenting rhythm: BP Bi-V P-98 %. (0) AT/AF episodes noted. (0) Ventricular tachy arrhythmias detected. Medication: Eliquis, ASA, Toprol XL, Entresto Follow up: office device pacemaker/ICD 06/22/24 Gerry remote 6 months Johnie Mensah RN Victor M Barnes MD [facility] PROC EDURES Final Result documented in this encounter Visit Diagnoses Diagnosis H/O atrioventricular inocente ablation- Primary Paroxysmal atrial fibrillation (CMS/HCC) (HCC) Atrial fibrillation Ischemic cardiomyopathy Other specified forms of chronic ischemic heart disease Chronic HFrEF (heart failure with reduced ejection fraction) (CMS/HCC) (HCC) 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 documented in this encounter Care Teams Medical Professionals Relationship Specialty Start Date End Date Tao Jeffers MD [address] [place] [address] PCP - General 12/18/11 Victor M Barnes MD [address] [place] [address] Consulting Physician Cardiology 05/16/21 Zane Lopez MD [address] [place] [address] Consulting Physician Electrophysiology 05/16/21 Miscellaneous, Not In File 05/23/21 documented as of this encounter
--- OUTSIDE RECORDS SUMMARY | 2024-07-30 20:15 | XMS_ITS | Encounter Summary ---
Author Organization [facility] Healthcare Address [address] [place] [address] Care Team Providers Care Crankshaft Balancer Name Role Phone Tao Jeffers MD Primary Care Provider [phone] Victor M Barnes MD Unavailable Zane Lopez MD Unavailable [phone] Miscellaneous, Not In File Unavailable Unava ilable Reason for Visit * Reason Comments Atrial Fibrillation Coronary Artery Disease Hyperlipidemia 8 mo f/u Encounter Details Date Type Department Care Team (Late st Contact Info) Description 07/11/2024 9:15 AM LABORER SHAFT SINKING Office Visit [facility] Medical Group Cardiology [address] [place] [address] Ar Esteves MD [address] [id number] Coronary artery disease involving southern ute coronary artery of southern ute heart without angina pectoris (Primary Dx); Chronic HFrEF (heart failure with reduced ejection fraction) (CMS/HCC) (HCC); Biventricular implantable cardioverter-defibril lator (ICD) in situ; Paroxysmal atrial fibrillation (CMS/HCC) (HCC); HTN (hypertension), benign Social History Tobacco Use Types Packs/Day Years Used Date Smoking Tobacco: Former Smokeless Tobacco: Never Sex and Gender Information Value Date Recorded Sex Assigned at Not on file Legal Sex Male 12:29 AM LABORER SHAFT SINKING Gender Identity Not on file Sexual Orientation Not on file documented as of this encounter Last Filed Vital Signs Vital Sign Reading Time Taken Comments Blood Pressure 150/84 07/11/2024 9:23 AM LABORER SHAFT SINKING Pulse 70 07/11/2024 9:23 AM LABORER SHAFT SINKING Temperature - - Respiratory Rate - - Oxygen Saturation 97% 07/11/2024 9:23 AM LABORER SHAFT SINKING Inhaled Oxygen Concentration - - Weight 81.2 kg (179 lb) 07/11/2024 9:23 AM LABORER SHAFT SINKING Height 180.3 cm (5' 11 ) 07/11/2024 9:23 AM LABORER SHAFT SINKING Body Mass Index 24.97 07/11/2024 9:23 AM LABORER SHAFT SINKING documented in this encounter Progress Notes * Ar Esteves MD - 07/11/2024 9:15 AM CST Images from the original note were not included. [facility] Medical Group-Cardiology DATE OF VISIT: 07/11/2024 CHIEF COMPLAINT Chief Complaint Patient presents with Atrial Fibrillation Coronary Artery Disease Hyperlipidemia 8 mo f/u HPI Lm Jimenez is a 84 y.o. male with a PMHx of coronary artery disease s/p PCI in 1999, HTN, colon cancer in 2003, cataracts, BPH, pneumonia a few years ago which required hospitalization and appendectomy. He presented to [facility] on 01[facility]2021 under the advice [...] loaded on amiodarone. 01/18/21 Hospital follow-up with CUSTOMER SERVICE DISPATCHER - Lm Jimenez comes to the office [...] a presyncopal episode: he fell into the [employer] waste bin head first, got himself up [...] he is cautious not to overdo it. Follow-up note 07/11/2024: He Denies any chest pain, shortness breath, syncope, presyncope, paroxysmal nocturnal dyspnea, orthopnea, edema or palpitations. No bleeding issues MEDICAL HISTORY Past Medical History: Diagnosis Date Atrial fibrillation (CMS/HCC) (HCC) Cardiomyopathy (HCC) Coronary artery disease Hyperlipidemia Hypertension Social History Tobacco Use Smoking status: Former Smokeless tobacco: Never Substance and Sexual Activity Drug use: Yes Types: Alcohol Comment: drinks alcohol very seldomly Sexual activity: None Alcohol Use: Not on file No family history on file. MEDICATIONS Medication List Accurate as of July 11, 2024 9:35 AM. If you have any questions, ask your nurse or doctor. CONTINUE taking these medications aspirin 81 mg enteric coated tablet Commonly known as: Adult Low Dose Aspirin Take 1 tablet (81 mg total) by mouth daily atorvastatin 80 mg tablet Commonly known as: LIPITOR Take 1 tablet (80 mg total) by mouth daily cetirizine 10 mg tablet Commonly known as: ZyrTEC Eliquis 5 mg tablet Generic drug: apixaban TAKE 1 TABLET(5 MG) BY MOUTH TWICE DAILY Entresto 49-51 mg tablet Generic drug: sacubitriL-valsartan TAKE 1 TABLET BY MOUTH TWICE DAILY furosemide 20 mg tablet Commonly known as: LASIX ipratropium 21 mcg (0.03 %) nasal spray Commonly known as: ATROVENT metoprolol XL 50 mg extended release tablet Commonly known as: TOPROL-XL Take 1 tablet (50 mg total) by mouth daily MIRALAX ORAL tamsulosin 0.4 mg extended release capsule Commonly known as: FLOMAX ALLERGIES Allergies Allergen Reactions Codeine Swelling Sulfa Unknown Wheat Itching Takes Zyrtec for it REVIEW OF SYSTEMS Review of Systems Constitutional: Negative for weight gain and weight loss. HENT: Negative for hearing loss. Eyes: Negative for blurred vision and visual disturbance. Cardiovascular: Negative for chest pain, claudication, dyspnea on exertion, irregular heartbeat, leg swelling, near-syncope, orthopnea, palpitations, paroxysmal nocturnal dyspnea and syncope. Respiratory: Negative for cough, hemoptysis, shortness of breath, snoring, sputum production and wheezing. Endocrine: Negative for cold intolerance, heat intolerance and polyuria. Hematologic/Lymphatic: Does not bruise/bleed easily. Skin: Negative for color change and rash. Musculoskeletal: Negative for falls, joint pain, joint swelling and myalgias. Gastrointestinal: Negative for abdominal pain, heartburn, nausea and vomiting. Genitourinary: Negative for dysuria. Neurological: Negative for dizziness, focal weakness, headaches, light- headedness, numbness and weakness. Psychiatric/Behavioral: Negative for depression. The patient is not nervous/anxious. Allergic/Immunologic: Negative for environmental allergies. All other systems reviewed and are negative. PHYSICAL EXAM Blood pressure 150/84, pulse 70, height 180.3 cm (5' 11 ), weight 81.2 kg (179 lb), SpO2 97%. Body mass index is 24.97 kg/m??. Physical Exam Vitals reviewed. Constitutional: Appearance: Normal appearance. HENT: Head: Normocephalic and atraumatic. Nose: Nose normal. Eyes: General: No scleral icterus. Conjunctiva/sclera: Conjunctivae normal. Cardiovascular: Rate and Rhythm: Normal rate and regular rhythm. Pulses: Intact distal pulses. Heart sounds: Normal heart sounds. No murmur heard. No friction rub. No gallop. Pulmonary: Effort: Pulmonary effort is normal. No respiratory distress. Breath sounds: Normal breath sounds. No wheezing or rales. Chest: Chest wall: No tenderness. Abdominal: General: Bowel sounds are normal. There is no distension. Palpations: Abdomen is soft. Tenderness: There is no abdominal tenderness. Musculoskeletal: General: Normal range of motion. Cervical back: Neck supple. Skin: General: Skin is warm and dry. Neurological: Mental Status: He is alert and oriented to person, place, and time. Psychiatric: Mood and Affect: Mood normal. LABS AND OTHER DIAGNOSTIC TESTS No results found for: WBC , HGB , HCT , MCV , PLT Chemistry Component Value Date/Time SODIUM 139 04/21/2023 1001 POTASSIUM 4.7 04/21/2023 1001 CHLORIDE 102 04/21/2023 1001 CO2 28 04/21/2023 1001 BUNSER 17 04/21/2023 1001 CREATININE 1.02 04/21/2023 1001 GLUCOSE 102 04/21/2023 1001 Component Value Date/Time CALCIUM 9.5 04/21/2023 1001 No results found for: CHOL No results found for: HDL No results found for: LDL ] No results found for: LDLCALC No results found for: TRIG No results found for: CHOLHDL 09/26/21 2D Echo: Conclusions: Mild concentric left [...] mmHg. Mild tricuspid regurgitation. Ventricular paced rhythm. ASSESSMENT There are no diagnoses linked to this encounter. Coronary artery disease involving southern ute coronary artery of southern ute heart without angina pectoris (Primary) Asymptomatic Chronic HFrEF (heart failure with reduced ejection fraction) (CMS/HCC) (HCC) Compensated Paroxysmal atrial fibrillation (CMS/HCC) ([facility]) Status post AV inocente ablation and biventricular pacing. On chronic anticoagulation HTN (hypertension), benign Above goal today but has not taken his meds Mixed dyslipidemia At goal 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 Functioning normally Chronic anticoagulation No bleeding issues S/P AV (atrioventricular) inocente ablation S/P coronary artery stent placement PLAN/RECOMMENDATIONS He is stable. Continue Eliquis for anticoagulation. Continue aspirin secondary to overlapping stents. Continue Entresto, metoprolol for hypertension and heart failure and otherwise continue his current regimen without change. Follow-up in 6 months or sooner as clinically indicated. Ar Esteves MD, [facility] RER SHAFT SINKING documented in this encounter Plan of Treatment Not on file documented as of this encounter Visit Diagnoses Diagnosis Coronary artery disease involving southern ute coronary artery of southern ute heart without angina pectoris- Primary Chronic HFrEF (heart failure with reduced ejection fraction) (CMS/HCC) (HCC) 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 Paroxysmal atrial fibrillation (CMS/HCC) (HCC) Atrial fibrillation HTN (hypertension), benign Essential hypertension, benign documented in this encounter Care Teams Crankshaft Balancer Relationship Specialty Start Date End Date Tao Jeffers MD [address] [place] [address] PCP - General 12/18/11 Victor M Barnes MD [address] [place], [place] [address] Consulting Physician Cardiology 05/16/21 Zane Lopez MD [address] [place] [address] Consulting Physician Electrophysiology 05/16/21 Miscellaneous, Not In File 05/23/21 documented as of this encounter
--- OUTSIDE RECORDS SUMMARY | 2024-07-30 20:15 | XMS_ITS | Encounter Summary ---
Author Organization [facility] Healthcare Address [address] [place] [address] Care Team Providers Care Control Operator Name Role Phone Tao Jeffers MD Primary Care Provider Victor M Barnes MD Unavailable [phone] Zane Lopez MD Unavailable Miscellaneous, Not In File Unavailable Unava ilable Encounter Details Date Type Department Care Team (Late st Contact Info) Description 12/08/2023 Telephone [facility] Medical Group Cardiology [address] [place] [address] Ar Esteves MD [facility] [address] Social History Tobacco Use Types Packs/Day Years Used Date Smoking Tobacco: Former Smokeless Tobacco: Never Sex and Gender Information Value Date Recorded Sex Assigned at Not on file Legal Sex Male 12:29 AM PUG MILL OPERATOR HELPER Gender Identity Not on file Sexual Orientation Not on file documented as of this encounter Miscellaneous Notes * Telephone Encounter - Hodan Locke MA - 12/08/2023 11:39 AM CDT No samples of Eliquis at this time but should have some on of this week. Samples of Entresto at the front end mechanic for patient fern picker. LM advising patient. * Telephone Encounter - Lena Crawford - 12/08/2023 11:14 AM CDT Pt requesting samples of Eliquis 5 mg and Entresto 49-51 mg. Contact: documented in this encounter Plan of Treatment Not on file documented as of this encounter Visit Diagnoses Not on filedocumented in this encounter Care Teams Control Operator Relationship Specialty Start Date End Date Tao Jeffers MD [address] [place] [address] PCP - General 12/18/11 Victor M Barnes MD [address] [place], [place] [address] Consulting Physician Cardiology 05/16/21 Zane Lopez MD [address] [place], [place] [address] Consulting Physician Electrophysiology 05/16/21 Miscellaneous, Not In File 05/23/21 documented as of this encounter
--- OUTSIDE RECORDS SUMMARY | 2024-07-30 20:15 | XMS_ITS | Encounter Summary ---
Author Organization [facility] Healthcare Address [address] [place] [address] Care Team Providers Care Face Hardener Name Role Phone Tao Jeffers MD Primary Care Provider [phone] Victor M Barnes MD Unavailable Zane Lopez MD Unavailable [phone] Miscellaneous, Not In File Unavailable Unava ilable Encounter Details Date Type Department Care Team (Late st Contact Info) Description 03/10/2024 Telephone [facility] Medical Group Cardiology [address] [place] [address] Ar Esteves MD [address] [address] Social History Tobacco Use Types Packs/Day Years Used Date Smoking Tobacco: Former Smokeless Tobacco: Never Sex and Gender Information Value Date Recorded Sex Assigned at Not on file Legal Sex Male 12:29 AM WEIGHT LOSS COUNSELOR Gender Identity Not on file Sexual Orientation Not on file documented as of this encounter Miscellaneous Notes * Telephone Encounter - Hodan Locke MA - 03/10/2024 10:25 AM CDT Samples at the motel front desk attendant for patient olive picker. Patient notified and advised to keep taking the ASA as well as the Eliquis per last OV note. He voiced understanding. * Telephone Encounter - Joyce Roblreo 03/10/2024 9:32 AM CDT Pt requesting samples of Entresto 49-51 mg tablet as well as Eliquis 5 mg tablet. Pt also requesting a call back in regard to whether or not he should continue taking aspirin (Adult Low Dose Aspirin)81 mg enteric coated tablet since he is now taking Eliquis. Contact:[phone] documented in this encounter Plan of Treatment Not on file documented as of this encounter Visit Diagnoses Not on filedocumented in this encounter Care Teams Face Hardener Relationship Specialty Start Date End Date Tao Jeffers MD [address] [place] [address] PCP - General 12/18/11 Victor M Barnes MD [address] [place] [address] Consulting Physician Cardiology 05/16/21 Zane Lopez MD [address] [place] [address] Consulting Physician Electrophysiology 05/16/21 Miscellaneous, Not In File 05/23/21 documented as of this encounter
--- OUTSIDE RECORDS SUMMARY | 2024-07-30 20:16 | XMS_ITS | Encounter Summary ---
Author Organization [facility] Address [address] [place] [address] Care Team Providers Care Industrial Spray Painter Name Role Phone Tao Jeffers MD Primary Care Provider Victor M Barnes MD Unavailable Zane Lopez MD Unavailable Miscellaneous, Not In File Unavailable Unava ilable Encounter Details Date Type Department Care Team (Late st Contact Info) Description 06/19/2021 Telephone [facility] Cardiology [address] [place] [address] Victor M Barnes MD [id number] [place], [place] [id number] Social History Tobacco Use Types Packs/Day Years Used Date Smoking Tobacco: Former Smokeless Tobacco: Never Sex and Gender Information Value Date Recorded Sex Assigned at Not on file Legal Sex Male 12:29 AM STOCKROOM INVENTORY CLERK Gender Identity Not on file Sexual Orientation Not on file documented as of this encounter Miscellaneous Notes * Telephone Encounter - Yuko Burden RN - 06/19/2021 10:39 AM STOCKROOM INVENTORY CLERK Pt called to report he is still having a little bit of a nose bleed and coughing up a little blood still. Pt is questioning his blood thinner. We re-discussed how the eliquis works and told him we need to find the source of the bleeding first. Pt has follow up with his PCP soon and will call and discuss with them. Pt verbalized understanding and will update us. KROOM INVENTORY CLERK * Telephone Encounter - An Cristina MA - 06/19/2021 9:38 AM CST Pt called wanting to s/w nurse Yuko, does not want to give any details on reason for call Cb:[phone] RICKY Mancia KROOM INVENTORY CLERK documented in this encounter Plan of Treatment Not on file documented as of this encounter Visit Diagnoses Not on filedocumented in this encounter Care Teams Industrial Spray Painter Relationship Specialty Start Date End Date Tao Jeffers MD [address] [place], [place] [id number] PCP - General 12/18/11 Victor M Barnes MD [address] [place], [place] [id number] Consulting Physician Cardiology 05/16/21 Zane Lopez MD [address] [place], [place] [id number] Consulting Physician Electrophysiology 05/16/21 Miscellaneous, Not In File 05/23/21 documented as of this encounter
--- OUTSIDE RECORDS SUMMARY | 2024-07-30 20:16 | XMS_ITS | Encounter Summary ---
Author Organization [facility] Address [address] [place] [address] Care Team Providers Care Vehicle Body Builder Name Role Phone Tao Jeffers MD Primary Care Provider [phone] Victor M Barnes MD Unavailable Zane Lopez MD Unavailable Miscellaneous, Not In File Unavailable Unava ilable Encounter Details Date Type Department Care Team (Late st Contact Info) Description 04/09/2022 Telephone [facility] Cardiology [address] [place] [address] Victor M Barnes MD [address] [id number] Social History Tobacco Use Types Packs/Day Years Used Date Smoking Tobacco: Former Smokeless Tobacco: Never Sex and Gender Information Value Date Recorded Sex Assigned at Not on file Legal Sex Male 12:29 AM PEDIATRIC MEDICAL ASSISTANT Gender Identity Not on file Sexual Orientation Not on file documented as of this encounter Ordered Prescriptions Prescription Sig Dispense Quantity Refills Last Filled Start Date End Date metoprolol XL (TOPROL-XL) 50 mg extended release tabletIndications: Persistent atrial fibrillation (HCC) Take 1 tablet (50 mg total) by mouth daily 90 tablet 3 04/09/2022 06/23/2023 documented in this encounter Miscellaneous Notes * Telephone Encounter - Yuko Burden RN - 04/09/2022 2:08 PM CDT Updating med list. Last refill sent in in error-pt aware of correct dosing. documented in this encounter Plan of Treatment Not on file documented as of this encounter Visit Diagnoses Diagnosis Persistent atrial fibrillation (HCC) Atrial fibrillation documented in this encounter Discontinued Medications Medication Sig Discontinue Reason Start Date End Da te metoprolol XL (TOPROL-XL) 50 mg extended release tabletIndications:Persist ent atrial fibrillation (HCC) TAKE 3 TABLETS BY MOUTH EVERY EVENING. 04/08/2022 04/09/2022 documented as of this encounter Care Teams Vehicle Body Builder Relationship Specialty Start Date End Date Tao Jeffers MD [address] [place], [place] [phone] PCP - General 12/18/11 Victor M Barnes MD [address] [place] [id number] Consulting Physician Cardiology 05/16/21 Zane Lopez MD [address] [place] [address] Consulting Physician Electrophysiology 05/16/21 Miscellaneous, Not In File 05/23/21 documented as of this encounter
--- OUTSIDE RECORDS SUMMARY | 2024-07-30 20:16 | XMS_ITS | Encounter Summary ---
Author Organization [facility] Address [address] [place] [address] Care Team Providers Care Steel Erector Name Role Phone Tao Jeffers MD Primary Care Provider [phone] Victor M Barnes MD Unavailable Zane Lopez MD Unavailable [phone] Miscellaneous, Not In File Unavailable Unava ilable Reason for Visit * Reason Onset Date Comments Lab Results 12/17/2022 Encounter Details Date Type Department Care Team (Late st Contact Info) Description 12/17/2022 Telephone [facility] Cardiology [address] [place] [address] Ayla Ballesteros MA Lab Results Social History Tobacco Use Types Packs/Day Years Used Date Smoking Tobacco: Former Smokeless Tobacco: Never Sex and Gender Information Value Date Recorded Sex Assigned at Not on file Legal Sex Male 12:29 AM MATHS TUTOR Gender Identity Not on file Sexual Orientation Not on file documented as of this encounter Miscellaneous Notes * Telephone Encounter - Ayla Ballesteros MA - 12/17/2022 9:47 AM CDT Labs overall look stable. ----- Message ----- From: Ayla Ballesteros MA Sent: 12/12/2022 8:24 PM CDT To: Victor M Barnes MD Subject: Edit The scan below was edited by Ayla Ballesteros MA [[id number]] on 12/12/2022 at 8:24 PM; it is attached to the following: BMP - BASIC METABOLIC PANEL (7) on 12/09/19 12/17/22- Pt notified documented in this encounter Plan of Treatment Not on file documented as of this encounter Visit Diagnoses Not on filedocumented in this encounter Care Teams Steel Erector Relationship Specialty Start Date End Date Tao Jeffers MD [address] [place], [place] [address] PCP - General 12/18/11 Victor M Barnes MD [address] [place] [address] Consulting Physician Cardiology 05/16/21 Zane Lopez MD [address] [place] [address] Consulting Physician Electrophysiology 05/16/21 Miscellaneous, Not In File 05/23/21 documented as of this encounter
--- OUTSIDE RECORDS SUMMARY | 2024-07-30 20:16 | XMS_ITS | Encounter Summary ---
Author Organization [facility] Address [address] [place] [address] Care Team Providers Care Aircraft Maintenance Manager Name Role Phone Tao Jeffers MD Primary Care Provider [phone] Victor M Barnes MD Unavailable Zane Lopez MD Unavailable [phone] Miscellaneous, Not In File Unavailable Unava ilable Encounter Details Date Type Department Care Team (Late st Contact Info) Description 07/15/2022 Telephone [facility] Cardiology [address] [place] [address] Victor M Barnes MD [address] [id number] Social History Tobacco Use Types Packs/Day Years Used Date Smoking Tobacco: Former Smokeless Tobacco: Never Sex and Gender Information Value Date Recorded Sex Assigned at Not on file Legal Sex Male 12:29 AM POLARITY TESTER Gender Identity Not on file Sexual Orientation Not on file documented as of this encounter Ordered Prescriptions Prescription Sig Dispense Quantity Refills Last Filled Start Date End Date sacubitriL-valsart an (ENTRESTO) 49-51 mg tabletIndications: chronic heart failure Take 1 tablet by mouth 2 (two) times a day 60 tablet 11 07/15/2022 10/06/2022 documented in this encounter Miscellaneous Notes * Telephone Encounter - Yuko Burden RN - 07/15/2022 12:14 PM POLARITY TESTER Spoke with pt, samples ready for pickup and new rx sent to pharm. Pt will picking supervisor tomorrow. RITY TESTER * Telephone Encounter - Lena John - 07/15/2022 10:45 AM CST Pt requesting samples of Entresto and call from nurse Yuko. Contact: RITY TESTER documented in this encounter Plan of Treatment Not on file documented as of this encounter Visit Diagnoses Not on filedocumented in this encounter Discontinued Medications Medication Sig Discontinue Reason Start Date End Da te sacubitriL-valsartan (ENTRESTO) 49-51 mg tabletIndications:chroni c heart failure Take 1 tablet by mouth 2 (two) times a day Reorder 04/03/2022 07/15/2022 documented as of this encounter Care Teams Aircraft Maintenance Manager Relationship Specialty Start Date End Date Tao Jeffers MD [address] [place], [place] [address] PCP - General 12/18/11 Victor M Barnes MD [address] [place], [place] [address] Consulting Physician Cardiology 05/16/21 Zane Lopez MD [address] [place], [place] [address] Consulting Physician Electrophysiology 05/16/21 Miscellaneous, Not In File 05/23/21 documented as of this encounter
--- OUTSIDE RECORDS SUMMARY | 2024-07-30 20:16 | XMS_ITS | Encounter Summary ---
Author Organization [facility] Address [address] [place] [address] Care Team Providers Care Sports Health Club Membership Advisors Name Role Phone Tao Jeffers MD Primary Care Provider [phone] Victor M Barnes MD Unavailable Zane Lopez MD Unavailable [phone] Miscellaneous, Not In File Unavailable Unava ilable Reason for Visit * Reason Onset Date Comments Hospital Follow Up 06/11/2021 Encounter Details Date Type Department Care Team (Late st Contact Info) Description 06/11/2021 Documentation [facility] [address] [place] [address] Ayla Colon, ANTHONY Hospital Follow Up Social History Tobacco Use Types Packs/Day Years Used Date Smoking Tobacco: Former Smokeless Tobacco: Never Sex and Gender Information Value Date Recorded Sex Assigned at Not on file Legal Sex Male 12:29 AM APPLICATIONS SYSTEM ANALYST Gender Identity Not on file Sexual Orientation Not on file documented as of this encounter Progress Notes * Ayla Colon RN - 06/11/2021 10:49 AM CST Left message for patient needs to schedule in office device interrogation in 3 weeks with reprogramming to VVIR lower rate of [address] Lopez, also need to speak to patient regarding groin site and healing if no issues or problems he is to resume his Eliquis. ICATIONS SYSTEM ANALYST * Yuko Lucia - 06/11/2021 10:49 AM CST Spoke with pt appt scheduled. Groin is healing nicely so will restart Eliquis tomorrow. ICATIONS SYSTEM ANALYST documented in this encounter Plan of Treatment Not on file documented as of this encounter Visit Diagnoses Not on filedocumented in this encounter Care Teams Sports Health Club Membership Advisors Relationship Specialty Start Date End Date Tao Jeffers MD [address] [place] [address] PCP - General 12/18/11 Victor M Barnes MD [address] [place], [place] [phone] Consulting Physician Cardiology 05/16/21 Zane Lopez MD [address] [place], [place] [phone] Consulting Physician Electrophysiology 05/16/21 Miscellaneous, Not In File 05/23/21 documented as of this encounter
--- OUTSIDE RECORDS SUMMARY | 2024-07-30 20:16 | XMS_ITS | Encounter Summary ---
Author Organization [facility] Address [address] [place] [address] Care Team Providers Care Door Manager Name Role Phone Tao Jeffers MD Primary Care Provider [phone] Victor M Barnes MD Unavailable [phone] Zane Lopez MD Unavailable [phone] Miscellaneous, Not In File Unavailable Unava ilable Reason for Referral * Cardiology (Routine) - Closed Specialty Diagnoses / Procedures Referred By Contac t Referred To Contact Diagnoses Ischemic cardiomyopathy Procedures DEVICE CHECK - REMOTE Ceasar Rossa MD [address] [address] Phone: tel: fax: [facility] Referral ID Status Reason Start Date Expiration Date Visits Re quested Visits Authorized [id number] Closed 09/03/2022 03/03/2024 1 1 HT MECHANIC * Cardiology (Routine) - Closed Specialty Diagnoses / Procedures Referred By Contac t Referred To Contact Diagnoses Ischemic cardiomyopathy Procedures DEVICE CHECK - REMOTE Ceasar Rosas MD [address] [address] Phone: tel: fax: [facility] Referral ID Status Reason Start Date Expiration Date Visits Re quested Visits Authorized [id number] Closed 09/03/2022 03/03/2024 1 1 HT MECHANIC * Cardiology (Routine) - Closed Specialty Diagnoses / Procedures Referred By Contac t Referred To Contact Diagnoses Ischemic cardiomyopathy Procedures DEVICE CHECK - REMOTE Ceasar Rosas MD [address] [address] Phone: tel: fax: [facility] Referral ID Status Reason Start Date Expiration Date Visits Re quested Visits Authorized [id number] Closed 09/03/2022 03/03/2024 1 1 HT MECHANIC * Cardiology (Routine) - Closed Specialty Diagnoses / Procedures Referred By Contac t Referred To Contact Diagnoses Ischemic cardiomyopathy Procedures DEVICE CHECK - REMOTE Ceasar Rosas MD [address] [place] [address] Phone: tel: fax: [facility] Referral ID Status Reason Start Date Expiration Date Visits Re quested Visits Authorized [id number] Closed 09/03/2022 03/03/2024 1 1 HT MECHANIC * Cardiology (Routine) - Closed Specialty Diagnoses / Procedures Referred By Contac t Referred To Contact Diagnoses Ischemic cardiomyopathy Procedures DEVICE CHECK - REMOTE Ceasar Rosas MD [address] [address] Phone: tel: fax: [facility] Referral ID Status Reason Start Date Expiration Date Visits Re quested Visits Authorized [id number] Closed 09/03/2022 03/03/2024 1 1 HT MECHANIC Encounter Details Date Type Department Care Team (Late st Contact Info) Description 09/03/2022 Orders Only [facility] [address] [address] Ceasar Rosas MD [address] [place] [address] Ischemic cardiomyopathy (Primary Dx) Social History Tobacco Use Types Packs/Day Years Used Date Smoking Tobacco: Former Smokeless Tobacco: Never Sex and Gender Information Value Date Recorded Sex Assigned at Not on file Legal Sex Male 12:29 AM FLIGHT MECHANIC Gender Identity Not on file Sexual Orientation Not on file documented as of this encounter Plan of Treatment Not on file documented as of this encounter Results * DEVICE CHECK - REMOTE (12/09/2023 10:24 AM CDT) Anatomical Region Laterality Modality Other Narrative 02/19/2024 2:23 PM CDT [place] BI-V ICD imp on 05/23/21 for ICM/CHF/PAF, s/p AVN ablation on 06/10/21. ??[place] (Card-Follows) - [place]. Routine VVI ICD Remote. Transmission attached. Battery status-Ok, 5.4 years remaining to JIAN. Stable Charge time and Shock impedance. Stable lead impedances, pacing and sensing threshold. Presenting: BIV Paced Bi-V P->98 %. (No) Ventricular tachy arrhythmias detected. ?? Medication: Eliquis, Toprol XL, Entresto. Follow up: [place] remote f/u 03/08/2024. Sonia Tomas, RN us Ceasar Rosas MD [facility] PRO CEDURES Final Result * DEVICE CHECK - REMOTE (09/09/2023 9:39 AM FLIGHT MECHANIC) Anatomical Region Laterality Modality Other Narrative 11/20/2023 8:10 AM CDT [place] BI-V ICD imp on 05/23/21 for ICM/CHF/PAF, s/p AVN ablation on 06/10/21. ??[place] (Card-Follows) - [place]. Routine VVI ICD Remote. Transmission attached. Battery status-Ok, 5.5 years remaining to JIAN. Stable Charge time and Shock impedance. Stable lead impedances, pacing and sensing threshold. Presenting: BIV Paced Bi-V P->98 %. (No) Ventricular tachy arrhythmias detected. ?? Medication: Eliquis, Toprol XL, Entresto. Follow up: [place] remote f/u 12/08/2023. Sonia Tomas, ANTHONY Ceasar Rosas MD CV CARDIAC SERVICES PRO CEDURES Final Result * DEVICE CHECK - REMOTE (03/10/2023 4:32 PM CDT) Anatomical Region Laterality Modality Other Narrative 04/17/2023 2:51 PM CDT [place] BI-V ICD imp on 05/23/21 for ICM/CHF/PAF, s/p AVN ablation on 06/10/21. ??[place] (Card-Follows) - [place]. Routine VVI ICD Remote. Transmission attached. Battery status-Ok, 5.9 years remaining to JIAN. Stable Charge time and Shock impedance. Stable lead impedances, pacing and sensing threshold. Presenting: BIV Paced Bi-V P->99 %. (No) Ventricular tachy arrhythmias detected. ?? Medication: Eliquis, Toprol XL, Entresto. Follow up: Office device f/u 06/10/2023. Sonia Tomas RN Ceasar Rosas MD CV CARDIAC SERVICES PRO CEDURES Final Result * DEVICE CHECK - REMOTE (12/08/2022 10:21 AM CDT) Anatomical Region Laterality Modality Other Narrative 12/13/2022 9:34 AM CDT Table formatting from the original result was not included. BiV ICD CHECK (REMOTE) Patient ID: Lm Jimenez is a 82 y.o. male. This patient received a OHARA BiV ICD. ??They had a routine remote transmission on 12/08/2022 Device implant indications: ??Ischemic cardiomyopathy, paroxysmal AFib, status post AVJ ?? Interrogation of the patient's device demonstrates the following: Presenting EGM: ??Bi V pace @ 70 bpm Original Device [...] Lead Impedance 41 ohms N/A Battery Status: ??6.2-6.6 years to JIAN, charge time 8.6 seconds. Episodes last 90 days/Comments: There were no new ventricular events noted on today's remote interrogation. NORMAL DEVICE FUNCTION PROGRAMMED MEDICATIONS: Anti-coagulant(s): ??Eliquis 5 mg twice daily, aspirin 81 mg Anti-arrhythmic(s): ??Toprol-XL 50 mg PLAN: 1) Normal Ohara BiV ICD evaluation 2) Ohara remote transmission scheduled in 3 months. 3) Programming appropriate for device settings Ayla Cloon RN us Ceasar Rosas MD [facility] CARDIAC SERVICES PRO CEDURES Final Result * DEVICE CHECK - REMOTE (09/08/2022 10:46 AM FLIGHT MECHANIC) Anatomical Region Laterality Modality Other Narrative 09/10/2022 3:25 PM FLIGHT MECHANIC Table formatting from the original result was not included. BiV ICD CHECK (REMOTE) Patient ID: Lm Jimenez is a 82 y.o. male. This patient received a [employer]ara BiV ICD. ??They had a routine remote transmission on 09/08/2022 Device implant indications: ??Ischemic cardiomyopathy ?? Interrogation of the patient's device demonstrates the following: Presenting EGM: ??Bi V paced @ 70 bpm Original Device [...] Lead Impedance 39 ohms N/A Battery Status: ??6.3 years to JIAN, charge time 8.8 seconds. Episodes last 90 days/Comments: There were no treated ventricular arrhythmias noted on today's remote interrogation. NORMAL DEVICE FUNCTION PROGRAMMED MEDICATIONS: Anti-coagulant(s): ??Eliquis 5 mg twice daily, aspirin 81 mg daily Anti-arrhythmic(s): ??Toprol-XL 50 mg daily PLAN: 1) normal Ohara BiV ICD evaluation 2) [employer] remote transmission scheduled in 3 months. 3) Programming appropriate for device settings Jose Hutchinson RN us Ceasar Rosas MD [facility] CARDIAC SERVICES PRO CEDURES Final Result documented in this encounter Visit Diagnoses Diagnosis Ischemic cardiomyopathy- Primary Other specified forms of chronic ischemic heart disease Ischemic cardiomyopathy Other specified forms of chronic ischemic heart disease 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- Primary Ischemic cardiomyopathy Other specified forms of chronic ischemic heart disease Atrial fibrillation, unspecified type (HCC) [I48.91]- Primary Ischemic cardiomyopathy Other specified forms of chronic ischemic heart disease S/P AV (atrioventricular) inocente ablation [Z98.890] Other postprocedural status Chronic HFrEF (heart failure with reduced ejection fraction) (CMS/HCC) (HCC) [I50.22] 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 [Z95.810] 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 [Z95.810]- Primary Ischemic cardiomyopathy Other specified forms of chronic ischemic heart disease Paroxysmal atrial fibrillation (CMS/HCC) (HCC) [I48.0] Atrial fibrillation Chronic HFrEF (heart failure with reduced ejection fraction) (CMS/HCC) (HCC) [I50.22] Atrial fibrillation, permanent (CMS/HCC) (HCC) [I48.21]- Primary Ischemic cardiomyopathy Other specified forms of chronic ischemic heart disease S/P AV (atrioventricular) inocente ablation [Z98.890] Other postprocedural status Chronic HFrEF (heart failure with reduced ejection fraction) (CMS/HCC) (HCC) [I50.22] 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 [Z95.810] documented in this encounter Care Teams Door Manager Relationship Specialty Start Date End Date Tao Jeffers MD [address] [place], [place] [id number] PCP - General 12/18/11 Victor M Barnes MD [address] [place], [place] [phone] Consulting Physician Cardiology 05/16/21 Zane Lopez MD [address] [place], [place] [address] Consulting Physician Electrophysiology 05/16/21 Miscellaneous, Not In File 05/23/21 documented as of this encounter
--- OUTSIDE RECORDS SUMMARY | 2024-07-30 20:16 | XMS_ITS | Encounter Summary ---
Author Organization [facility] Address [address] [place] [address] Care Team Providers Care Book Trimmer Name Role Phone Tao Jeffers MD Primary Care Provider [phone] Victor M Barnes MD Unavailable Zane Lopez MD Unavailable Miscellaneous, Not In File Unavailable Unava ilable Encounter Details Date Type Department Care Team (Late st Contact Info) Description 04/30/2022 Telephone [facility] Cardiology [address] [place] [address] Victor M Barnes MD [address] [id number] Social History Tobacco Use Types Packs/Day Years Used Date Smoking Tobacco: Former Smokeless Tobacco: Never Sex and Gender Information Value Date Recorded Sex Assigned at Not on file Legal Sex Male 12:29 AM FURNITURE INSPECTOR Gender Identity Not on file Sexual Orientation Not on file documented as of this encounter Miscellaneous Notes * Telephone Encounter - Yuko Burden RN - 04/30/2022 3:25 PM CDT Pt requesting entresto samples-told pt they will be ready for pickup today. Pt appreciated the assistance. * Telephone Encounter - Gage Brown - 04/30/2022 2:45 PM CDT Pt requesting a call from nurse Huntley.Thank you Contact:[phone] documented in this encounter Plan of Treatment Not on file documented as of this encounter Visit Diagnoses Not on filedocumented in this encounter Care Teams Book Trimmer Relationship Specialty Start Date End Date Tao Jeffers MD [address] [place] [address] PCP - General 12/18/11 Victor M Barnes MD [address] [place] [address] Consulting Physician Cardiology 05/16/21 Zane Lopez MD [address] [place] [address] Consulting Physician Electrophysiology 05/16/21 Miscellaneous, Not In File 05/23/21 documented as of this encounter
--- OUTSIDE RECORDS SUMMARY | 2024-07-30 20:16 | XMS_ITS | Encounter Summary ---
Author Organization [facility] Address [address] [place] [address] Care Team Providers Care Machine Room Engineer Name Role Phone Tao Jeffers MD Primary Care Provider [phone] Victor M Barnes MD Unavailable [phone] Znae Lopez MD Unavailable Miscellaneous, Not In File Unavailable Unava ilable Encounter Details Date Type Department Care Team (Late st Contact Info) Description 06/09/2022 Orders Only [facility] [address] [place] [address] Zane Lopez MD [address] [facility] [address] [place] [address] Ischemic cardiomyopathy (Primary Dx) Social History Tobacco Use Types Packs/Day Years Used Date Smoking Tobacco: Former Smokeless Tobacco: Never Sex and Gender Information Value Date Recorded Sex Assigned at Not on file Legal Sex Male 12:29 AM LOGISTICS SUPPLY OFFICER Gender Identity Not on file Sexual Orientation Not on file documented as of this encounter Plan of Treatment Not on file documented as of this encounter Visit Diagnoses Diagnosis Ischemic cardiomyopathy- Primary Other specified forms of chronic ischemic heart disease documented in this encounter Care Teams Machine Room Engineer Relationship Specialty Start Date End Date Tao Jeffers MD [address] [place] [id number] PCP - General 12/18/11 Victor M Barnes MD [address] [place] [address] Consulting Physician Cardiology 05/16/21 Zane Lopez MD [address] [place], [place] [id number] Consulting Physician Electrophysiology 05/16/21 Miscellaneous, Not In File 05/23/21 documented as of this encounter
--- OUTSIDE RECORDS SUMMARY | 2024-07-30 20:16 | XMS_ITS | Encounter Summary ---
Author Organization [facility] Address [address] [place] [address] Care Team Providers Care Patient Account Representative Name Role Phone Tao Jeffers MD Primary Care Provider [phone] Victor M Barnes MD Unavailable [phone] Zane Lopez MD Unavailable Miscellaneous, Not In File Unavailable Unava ilable Encounter Details Date Type Department Care Team (Late st Contact Info) Description 10/02/2021 Telephone [facility] Cardiology [address] [place] [address] Victor M Barnes MD [address] [id number] Social History Tobacco Use Types Packs/Day Years Used Date Smoking Tobacco: Former Smokeless Tobacco: Never Sex and Gender Information Value Date Recorded Sex Assigned at Not on file Legal Sex Male 12:29 AM GIVER Gender Identity Not on file Sexual Orientation Not on file documented as of this encounter Miscellaneous Notes * Telephone Encounter - Elvi Burden RN - 10/02/2021 10:40 AM GIVER Spoke with pt and reviewed echo results with pt-he verbalized understanding and appreciated the callback. R * Telephone Encounter - An Cristina MA - 10/02/2021 9:55 AM CST Pt calling to s/w nurse elvi(stated this is their usual procedure) Cb:[phone] RICKY Mancia R documented in this encounter Plan of Treatment Not on file documented as of this encounter Visit Diagnoses Not on filedocumented in this encounter Care Teams Patient Account Representative Relationship Specialty Start Date End Date Tao Jeffers MD [address] [place] [address] PCP - General 12/18/11 Victor M Barnes MD [address] [place] [address] Consulting Physician Cardiology 05/16/21 Zane Lopez MD [address] [place] [address] Consulting Physician Electrophysiology 05/16/21 Miscellaneous, Not In File 05/23/21 documented as of this encounter
--- OUTSIDE RECORDS SUMMARY | 2024-07-30 20:16 | XMS_ITS | Encounter Summary ---
Author Organization [facility] Address [address] [place] [address] Care Team Providers Care Child Welfare Worker Name Role Phone Tao Jeffers MD Primary Care Provider Victor M Barnes MD Unavailable [phone] Zane Lopez MD Unavailable Miscellaneous, Not In File Unavailable Unava ilable Encounter Details Date Type Department Care Team (Late st Contact Info) Description 05/15/2022 Telephone [facility] Cardiology [address] [place] [address] Victor M Barnes MD [address] [id number] Social History Tobacco Use Types Packs/Day Years Used Date Smoking Tobacco: Former Smokeless Tobacco: Never Sex and Gender Information Value Date Recorded Sex Assigned at Not on file 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 * Telephone Encounter - Lena John - 05/15/2022 12:44 PM CDT Pt requesting refill for Eliquis 5 mg. States he is out of this med. Contact: documented in this encounter Plan of Treatment Not on file documented as of this encounter Visit Diagnoses Not on filedocumented in this encounter Discontinued Medications Medication Sig Discontinue Reason Start Date End Da te apixaban (ELIQUIS) 5 mg tablet Take 1 tablet (5 mg total) by mouth 2 (two) times a day Reorder 06/03/2021 05/15/2022 documented as of this encounter Care Teams Child Welfare Worker Relationship Specialty Start Date End Date Tao Jeffers MD [address] [place], [place] [address] PCP - General 12/18/11 Victor M Barnes MD [address] [place] [id number] Consulting Physician Cardiology 05/16/21 Zane Lopez MD [address] [place], [place] [address] Consulting Physician Electrophysiology 05/16/21 Miscellaneous, Not In File 05/23/21 documented as of this encounter
--- OUTSIDE RECORDS SUMMARY | 2024-07-30 20:16 | XMS_ITS | Encounter Summary ---
Author Organization [facility] Address [address] [place] [address] Care Team Providers Care Division Manager Name Role Phone Tao Jeffers MD Primary Care Provider [phone] Victor M Barnes MD Unavailable [phone] Zane Lopez MD Unavailable [phone] Miscellaneous, Not In File Unavailable Unava ilable Reason for Referral * Cardiology (Routine) - Pending Review Specialty Diagnoses / Procedures Referred By Contac t Referred To Contact Cardiology Diagnoses Paroxysmal atrial fibrillation (CMS/HCC) (HCC) Ischemic cardiomyopathy Procedures DEVICE CHECK - REMOTE Victor M Barnes MD [address] [place] [address] Phone: tel: fax: [facility] Referral ID Status Reason Start Date Expiration Date V isits Requested Visits Authorized [id number] Pending Review 02/13/2023 08/16/2024 1 1 * Cardiology (Routine) - Pending Review Specialty Diagnoses / Procedures Referred By Contac t Referred To Contact Cardiology Diagnoses Paroxysmal atrial fibrillation (CMS/HCC) (HCC) Ischemic cardiomyopathy Procedures DEVICE CHECK - REMOTE Victor M Barnes MD [address] [place] [address] Phone: tel: fax: [facility] Referral ID Status Reason Start Date Expiration Date V isits Requested Visits Authorized [id number] Pending Review 02/13/2023 08/16/2024 1 1 * Cardiology (Routine) - Pending Review Specialty Diagnoses / Procedures Referred By Contac t Referred To Contact Diagnoses Paroxysmal atrial fibrillation (CMS/HCC) (HCC) Ischemic cardiomyopathy Procedures DEVICE CHECK - REMOTE Victor M Barnes MD [address] [place] [address] Phone: tel: fax: [facility] Referral ID Status Reason Start Date Expiration Date V isits Requested Visits Authorized [id number] Pending Review 02/13/2023 08/16/2024 1 1 Encounter Details Date Type Department Care Team (Late st Contact Info) Description 02/13/2023 Orders Only [facility] Cardiology [address] [place] [phone] Victor M Barnes MD [address] [place] [address] [address] [place] [address] Paroxysmal atrial fibrillation (CMS/HCC) (HCC) (Primary Dx); Ischemic cardiomyopathy Social History Tobacco Use Types Packs/Day Years Used Date Smoking Tobacco: Former Smokeless Tobacco: Never Sex and Gender Information Value Date Recorded Sex Assigned at Not on file 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[employer] Gender Identity Not on file Sexual Orientation Not on file documented as of this encounter Plan of Treatment Scheduled Orders Name Type Priority Associated Diagnoses Orde r Schedule DEVICE CHECK - REMOTE Cardiac Services Routine Paroxysmal atrial fibrillation (CMS/HCC) (HCC) Ischemic cardiomyopathy Expected: 08/14/2023, Expires: 07/26/2030 DEVICE CHECK - REMOTE Cardiac Services Routine Paroxysmal atrial fibrillation (CMS/HCC) (HCC) Ischemic cardiomyopathy Expected: 11/13/2023, Expires: 07/26/2030 documented as of this encounter Results * DEVICE CHECK - REMOTE (03/09/2024 8:06 AM CDT) Anatomical Region Laterality Modality Other Narrative 03/16/2024 12:58 PM CDT Ji [place] BI-V ICD imp on 05/23/21 for ICM/CHF/PAF, s/p AVN ablation on 06/10/21. Cameron ([facility]Follow[facility]). [facility]-EP - [place] Routine VVIR ICD Remote. Transmission attached. Battery status 67%, 5.2-5.5 years remaining battery life to JIAN. Stable Charge time and Shock impedance. Stable lead impedances, pacing, and sensing threshold. Presenting rhythm: BP Bi-V P-98 %. (0) AT/AF episodes noted. (0) Ventricular tachy arrhythmias detected. Medication: Eliquis, ASA, Toprol XL, Entresto Follow up: office device pacemaker/ICD 06/22/24 [place] remote 6 months Johnie Mensah RN Victor M Barnes MD [facility] C[facility]IAC SERVICES PROC EDURES Final Result documented in this encounter Visit Diagnoses Diagnosis Paroxysmal atrial fibrillation (CMS/HCC) (HCC)- Primary Atrial fibrillation Ischemic cardiomyopathy Other specified forms of chronic ischemic heart disease H/O atrioventricular inocente ablation- Primary Paroxysmal atrial fibrillation (CMS/HCC) (HCC) Atrial fibrillation Ischemic cardiomyopathy Other specified forms of chronic ischemic heart disease Chronic HFrEF (heart failure with reduced ejection fraction) (CMS/HCC) (HCC) 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 documented in this encounter Care Teams Division Manager Relationship Specialty Start Date End Date Tao Jeffers MD [address] [place], [place] [address] PCP - General 12/18/11 Victor M Barnes MD [address] [place], [place] [address] Consulting Physician Cardiology 05/16/21 Zane Lopez MD [address] [place], [place] [address] Consulting Physician Electrophysiology 05/16/21 Miscellaneous, Not In File 05/23/21 documented as of this encounter
--- OUTSIDE RECORDS SUMMARY | 2024-07-30 20:16 | XMS_ITS | Encounter Summary ---
Author Organization [facility] Address [address] [facility] [address] [place] [address] Care Team Providers Care Oyster Fisherman Name Role Phone Tao Jeffers MD Primary Care Provider [phone] Victor M Barnes MD Unavailable [phone] Zane Lopez MD Unavailable [phone] Miscellaneous, Not In File Unavailable Unava ilable Reason for Visit * Reason Comments New Patient * Consultation (Routine) - Closed Specialty Diagnoses / Procedures Referred By Contac t Referred To Contact Cardiology Diagnoses Coronary artery disease involving nansemond indian tribe coronary artery of nansemond indian tribe heart without angina pectoris Chronic HFrEF (heart failure with reduced ejection fraction) (CMS/HCC) (HCC) Ischemic cardiomyopathy Paroxysmal atrial fibrillation (CMS/HCC) (HCC) S/P AV (atrioventricular) inocente ablation S/P coronary artery stent placement 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 Victor M Barnes MD [address] [place] [address] Phone: tel: fax: Freddie Cao MD [address] [address] Phone: tel: fax: Referral ID Status Reason Start Date Expiration Date V isits Requested Visits Authorized [id number] Closed Specialty Services Required 02/11/2023 03/12/2024 1 1 Encounter Details Date Type Department Care Team (Latest Contact Info) Description 04/21/2023 9:15 AM CDT Office Visit [facility] Cardiology [address] [place] [address] Freddie Cao MD [address] [place] [address] Biventricular implantable cardioverter-defibrill ator (ICD) in situ (Primary Dx); Coronary artery disease involving nansemond indian tribe coronary artery of nansemond indian tribe heart without angina pectoris; Chronic HFrEF (heart failure with reduced ejection fraction) (CMS/HCC) (HCC); Ischemic cardiomyopathy; Permanent atrial fibrillation (CMS/HCC) ([facility]); S/P AV (atrioventricular) inocente ablation; S/P coronary artery stent placement; Mixed dyslipidemia Social History Tobacco Use Types Packs/Day Years Used Date Smoking Tobacco: Former Smokeless Tobacco: Never Tobacco Cessation:Counseling Given: Not Answered Sex and Gender Information Value Date Recorded Sex Assigned at Not on file 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 Gender Identity Not on file Sexual Orientation Not on file documented as of this encounter Last Filed Vital Signs Vital Sign Reading Time Taken Comments Blood Pressure 138/70 04/21/2023 9:16 AM CDT Pulse 70 04/21/2023 9:16 AM CDT Temperature - - Respiratory Rate 16 04/21/2023 9:16 AM CDT Oxygen Saturation 98% 04/21/2023 9:16 AM CDT Inhaled Oxygen Concentration - - Weight 79.8 kg (176 lb) 04/21/2023 9:16 AM CDT Height 180.3 cm (5' 11 ) 04/21/2023 9:16 AM CDT Body Mass Index 24.55 04/21/2023 9:16 AM CDT documented in this encounter Progress Notes * Freddie Cao MD - 04/21/2023 9:15 AM CDT Consult Note - Cardiac Electrophysiology Patient Name: Lm Jimenez Date of : 1940 Primary Physician: Tao Jeffers MD Referring Physician: Сергей Barnes MD I had the pleasure of seeing Lm Jimenez in consultation at the [facility]- Cardiology at [facility]. I have reviewed the pertinent data originating outside our institution and outside my specialty within our institution and summarized the pertinent information below. As you well know, he is a 82 y.o. male with the following arrhythmia-specific history: 1. Permanent AF and mixed ischemic/nonischemic CM s/p AVJ RFA and SECURITY PROJECT MANAGER-D Underwent SECURITY PROJECT MANAGER-D implant 05/23/21(ST, Dr. Lopez, [facility]) in setting of difficult to control AF despite Amiodarone with plans for AVN ablation Underwent AVJ RFA 06/11/21(Dr. Lopez, [facility]) Most recent EF evaluation in 09/2021 with EF of 45%, improved from prior Maintained on Entresto, Metoprolol and Eliquis Pertinent history: HTN, HLD, CAD, s/p PCIs to LAD and RCA(mRCA PCI 03/2021) Patient states he is doing well at this time. He unfortunately lost his 2 weeks after his AV node ablation, however has emotional recovered. He lives by himself, however has his daughter and son-in-law close by to help when needed. Patient denies any chest pain exertion, lightheadedness, dizziness, tachy palpitations or ICD shocks. Patient has had some episodes of orthostasis, however has not had any head trauma today. Patient is compliant with all medications. Past Medical History Past Medical History: Diagnosis Date Atrial fibrillation (CMS/HCC) (HCC) Cardiomyopathy (HCC) Coronary artery disease Hyperlipidemia Hypertension Past Surgical History Past Surgical History: Procedure Laterality Date CARDIOVERSION CORONARY ANGIOPLASTY 04/15/2000 3x13 mm BMS to prox LAD and 4x28 mm BMS to RCA Medications Current Outpatient Medications: apixaban (ELIQUIS) 5 mg tablet, Take 1 tablet (5 mg total) by mouth 2 (two) times a day, Disp: 180 tablet, Rfl: 3 aspirin (Adult Low Dose Aspirin) 81 mg enteric coated tablet, Take 1 tablet (81 mg total) by mouth daily, Disp: , Rfl: atorvastatin (LIPITOR) 80 mg tablet, Take 1 tablet (80 mg total) by mouth daily, Disp: 90 tablet, Rfl: 3 cetirizine (ZyrTEC) 10 mg tablet, Take 1 tablet (10 mg total) by mouth daily, Disp: , Rfl: furosemide (LASIX) 20 mg tablet, Take 1 tablet (20 mg total) by mouth as needed, Disp: , Rfl: metoprolol XL (TOPROL-XL) 50 mg extended release tablet, Take 1 tablet (50 mg total) by mouth daily, Disp: 90 tablet, Rfl: 3 sacubitriL-valsartan (ENTRESTO) 49-51 mg tablet, Take 1 tablet by mouth 2 (two) times a day, Disp: 60 tablet, Rfl: 11 tamsulosin (FLOMAX) 0.4 mg extended release capsule, Take 1 capsule (0.4 mg total) by mouth every morning, Disp: , Rfl: Allergies Allergies Allergen Reactions Codeine Swelling Sulfa Swelling Wheat Itching Takes Zyrtec for it Family History No family history on file. Social History Social History Tobacco Use Smoking status: Former Smokeless tobacco: Never Substance and Sexual Activity Drug use: Yes Types: Alcohol Comment: drinks alcohol very seldomly Sexual activity: Not on file Alcohol Use: Not on file Review of Systems Review of Systems 12 POINT ROS DONE AND ALL OTHER SYSTEMS ARE NEGATIVE. Objective Vitals: 04/21/23 0916 BP: 138/70 BP Location: Right arm Patient Position: Sitting Pulse: 70 Resp: 16 SpO2: 98% Weight: 79.8 kg (176 lb) Height: 180.3 cm (5' 11 ) Physical Exam Constitutional: Elderly male in no distress. Head: Normocephalic. Nose: Nose normal. Mouth/Throat: Mucous membranes are normal. Eyes: Sclera Anicteric Neck: Supple without appreciable lymphadenopathy, carotid bruits Cardiovascular: Regular rhythm, S1 normal and S2 normal. No murmurs/rubs/gallops. Pulmonary/Chest: Effort normal and breath sounds normal. Abdominal: Soft. Normal appearance. Neurological: alert, oriented Skin: Left-sided SECURITY PROJECT MANAGER D in place, no erythema no edema. Psychiatric: normal mood and affect. Diagnostic Data ECG performed today and reviewed personally reveals underlying atrial fibrillation with biventricular pacing. Labs No results found for: CREATININE , No results found for: LABPLAT , No results found for: WBC , No results found for: HGB Visit Diagnoses (E78.2) Mixed dyslipidemia (primary encounter diagnosis) Plan: POCT lipid panel (I25.10) Coronary artery disease involving nansemond indian tribe coronary artery of nansemond indian tribe heart without angina pectoris Plan: Ambulatory referral to Cardiac Electrophysiology, POCT lipid panel (I50.22) Chronic HFrEF (heart failure with reduced ejection fraction) ([facility]) ([facility]) Plan: Ambulatory referral to Cardiac Electrophysiology, Basic metabolic panel (I25.5) Ischemic cardiomyopathy Plan: Ambulatory referral to Cardiac Electrophysiology (I48.0) Paroxysmal atrial fibrillation ([facility]) ([facility]) Plan: Ambulatory referral to Cardiac Electrophysiology (Z98.890) S/P AV (atrioventricular) inocente ablation Plan: Ambulatory referral to Cardiac Electrophysiology, ECG 12 lead (Z95.5) S/P coronary artery stent placement Plan: Ambulatory referral to Cardiac Electrophysiology (Z95.810) 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 Plan: Ambulatory referral to Cardiac Electrophysiology Impression and Plan Mr. Jimenez is an 82 yo M with permanent atrial fibrillation and systolic cardiomyopathy status post CRTD an AV node ablation here to establish care #permAF: Status post SECURITY PROJECT MANAGER D and AV inocente ablation. Patient is asymptomatic from this time. Patient'smost recent remote device check shows adequate battery life and good functioning device. -we will check BMP today to see if creatinine will allow him to tolerate Eliquis 5 mg b.i.d., or ifdose reduction is needed given his age -continue quarterly remote device checks as well as yearly in-person visit # chronic systolic cardiomyopathy: -continue goal-directed medical therapy per Dr. Barnes. If patient has worsening orthostatic symptoms, can consider reducing Entresto dosage further. Thank you for allowing us to participate in the care of this pleasant patient. Please do not hesitate to call us if any questions arise. Respectfully, Freddie Cao MD Clinical Cardiac Electrophysiology [facility] at This note was transcribed using speech recognition software. As a result, there may be grammatical and spelling errors that are unintended. If there are any questions or major inaccuracies, please contact us. documented in this encounter Plan of Treatment Not on file documented as of this encounter Procedures Procedure Name Priority Date/Time Associated Diagnosis Comments POCT LIPID PANEL Routine 04/21/2023 9:34 AM CDT Coronary artery disease involving nansemond indian tribe coronary artery of nansemond indian tribe heart without angina pectoris Mixed dyslipidemia ECG 12-LEAD Routine 04/21/2023 S/P AV (atrioventricular) inocente ablation documented in this encounter Results * Basic metabolic panel (04/21/2023 10:01 AM CDT) Sodium 139 135 - 145 mmol/L [facility] Comment:[facility] [place] [address] Potassium, pl 4.7 3.3 - 4.9 mmol/L [facility] Comment:Testing performed by : [facility] [place] [address] Chloride 102 97 - 110 mmol/L [facility] Comment:Testing performed by : [facility] [place] [address] CO2 28 22 - 32 mmol/L [facility] Comment:Testing performed by : [facility], [place] [address] Anion gap 9 2 - 15 mmol/L [facility] Comment:Testing performed by : [facility], [place] [address] BUN 17 6 - 25 mg/dL [facility] Comment:Testing performed by : [facility], [place] [address] Creatinine 1.02 0.80 - 1.30 mg/dL [facility] Comment:Testing performed by : [facility], [place] [address] Glucose 102 70 - 199 mg/dL [facility] Comment: Interpretive Data Fasting glucose >/= 126 [...] classification and Diagnosis of Diabetes Diabetes Care 2021; 46: S19-S40. Current interpretive data was last revised 2022. Testing performed by: [facility], [place] [address] Calcium 9.5 8.5 - 10.3 mg/dL [facility] Comment:Testing performed by : [facility], [place] [address] Blood 04/21/2023 10:0 1 AM CDT 04/21/2023 10:05 AM CDT Freddie Cao MD LAB BLOOD ORDERABLES F inal Result JADIEL CALHOUN [address] [facility] [place] [address] * POCT lipid panel (04/21/2023 9:34 AM CDT) Cholesterol, POC 104 mg/dL HDL, POC 31 mg/dL Triglycerides, POC 45 mg/dL LDL Cholesterol POC 60 mg/dL Chol/HDL Ratio, POC 3.3 Non-HDL Cholesterol, POC 72 mg/dL Cholesterol Total, POC 104 mg/dL Capillary blood 04/21/2023 9 :34 AM CDT Freddie Cao MD POINT OF CARE TEST ORD ERABLES Final Result * ECG 12 lead (04/21/2023) Freddie Cao MD ECG ORDERABLES Edited Result - Final documented in this encounter Visit Diagnoses Diagnosis 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- Primary Coronary artery disease involving nansemond indian tribe coronary artery of nansemond indian tribe heart without angina pectoris Chronic HFrEF (heart failure with reduced ejection fraction) ([facility] ([facility]) Ischemic cardiomyopathy Other specified forms of chronic ischemic heart disease Permanent atrial fibrillation (CMS/HCC) (HCC) Atrial fibrillation S/P AV (atrioventricular) inocente ablation Other postprocedural status S/P coronary artery stent placement Postsurgical percutaneous transluminal coronary angioplasty status Mixed dyslipidemia documented in this encounter Historical Medications * This list may reflect changes made after this encounter. ipratropium (ATROVENT) 21 mcg (0.03 %) nasal spray SPRAY TWICE IN EACH NOSTRIL TWICE DAILY DIRECTED added in this encounter Orders Outpatient Referral Count Last Ordered Date Fir st Ordered Date AMB REFERRAL TO CARDIAC ELECTROPHYSIOLOGY 1 04/21/2023 documented in this encounter Care Teams Oyster Fisherman Relationship Specialty Start Date End Date Tao Jeffers MD [address] [place], [place] [id number] PCP - General 12/18/11 Victor M Barnes MD [address] [place] [address] Consulting Physician Cardiology 05/16/21 Zane Lopez MD [address] [place], [place] [address] Consulting Physician Electrophysiology 05/16/21 Miscellaneous, Not In File 05/23/21 documented as of this encounter
--- OUTSIDE RECORDS SUMMARY | 2024-07-30 20:16 | XMS_ITS | Encounter Summary ---
Author Organization [facility] Address [address] [facility] [address] [place] [address] Care Team Providers Care Medical Care Evaluation Specialist Name Role Phone Tao Jeffers MD Primary Care Provider [phone] Victor M Barnes MD Unavailable [phone] Zane Lopez MD Unavailable Miscellaneous, Not In File Unavailable Unava ilable Reason for Visit * Reason Onset Date Comments Device Checks 02/11/2023 Encounter Details Date Type Department Care Team (Late st Contact Info) Description 02/11/2023 Telephone [facility] Cardiology [address] [place] [address] Ayla Ballesteros MA Device Checks Social History Tobacco Use Types Packs/Day Years Used Date Smoking Tobacco: Former Smokeless Tobacco: Never Sex and Gender Information Value Date Recorded Sex Assigned at Not on file 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 Device info updated on problem list, already listed on the tab. * Telephone Encounter - Kaycee Marroquin MA - 02/13/2023 3:31 PM CDT Pt has been transferred to [facility], orders done and next remote scheduled on website and in epic. Just needs sticky note DANY Scott * Telephone Encounter - Kaycee Marroquin MA - 02/11/2023 5:06 PM CDT noted * Telephone Encounter - Sonia Tomas RN - 02/11/2023 1:39 PM CDT Kaycee will you contact [facility] and arrange for transfer of his remote transfer. Please schedule the appropriate device f/u. Thank you. * Telephone Encounter - Ayla Ballesteros MA - 02/11/2023 12:59 PM CDT Daniel Scott and LOYDA Benoit saw pt today and asked if you could transfer pacer checks to us from [facility]? Thank you!! documented in this encounter Plan of Treatment Not on file documented as of this encounter Visit Diagnoses Not on filedocumented in this encounter Care Teams Medical Care Evaluation Specialist Relationship Specialty Start Date End Date Tao Jeffers MD [address] [place], [place] [id number] PCP - General 12/18/11 Victor M Barnes MD [address] [place] [address] Consulting Physician Cardiology 05/16/21 Zane Lopez MD [address] [place] [address] Consulting Physician Electrophysiology 05/16/21 Miscellaneous, Not In File 05/23/21 documented as of this encounter
--- OUTSIDE RECORDS SUMMARY | 2024-07-30 20:16 | XMS_ITS | Encounter Summary ---
Author Organization [facility] Medical [facility] Address [address] [facility] [address] [place] [address] Care Team Providers Care Injury/Safety Hazard Assessment Name Role Phone Tao Jeffers MD Primary Care Provider [phone] Victor M Barnes MD Unavailable [phone] Zane Lopez MD Unavailable [phone] Miscellaneous, Not In File Unavailable Unava ilable Reason for Referral * Cardiology (Routine) - Closed Specialty Diagnoses / Procedures Referred By Contac t Referred To Contact Diagnoses Ischemic cardiomyopathy Paroxysmal atrial fibrillation (CMS/HCC) (HCC) Procedures DEVICE CHECK - IN OFFICE Victor M Barnes MD [address] [place] [address] Phone: tel: fax: [facility] Referral ID Status Reason Start Date Expiration Date Visits Re quested Visits Authorized [id number] Closed 02/13/2023 07/19/2024 1 1 Encounter Details Date Type Department Care Team (Late st Contact Info) Description 02/13/2023 Orders Only [facility] Medical [facility] Cardiology [address] [facility] [address], [place] [address] Victor M Barnes MD [address] [place] [address] [address] [place] [address] Ischemic cardiomyopathy (Primary Dx); Paroxysmal atrial fibrillation (CMS/HCC) (HCC) Social History Tobacco Use Types Packs/Day Years Used Date Smoking Tobacco: Former Smokeless Tobacco: Never Sex and Gender Information Value Date Recorded Sex Assigned at Not on file 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 ??[facility] ([facility]) - [facility]. Office VVIR BIV Pacemaker ICD device interrogation performed by [place] international sales representative. Transmission attached. Stable lead impedances, [...] Paroxysmal atrial fibrillation (CMS/HCC) (HCC) Atrial fibrillation 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- Primary Ischemic cardiomyopathy Other specified forms of chronic ischemic heart disease Paroxysmal atrial fibrillation (CMS/HCC) (HCC) Atrial fibrillation Chronic HFrEF (heart failure with reduced ejection fraction) (CMS/HCC) (HCC) S/P AV (atrioventricular) inocente ablation Other postprocedural status Permanent atrial fibrillation (CMS/HCC) (HCC) Atrial fibrillation documented in this encounter Care Teams Injury/Safety Hazard Assessment Relationship Specialty Start Date End Date Tao Jeffers MD [address] [place] [address] PCP - General 12/18/11 Victor M Barnes MD [address] [place] [address] Consulting Physician Cardiology 05/16/21 Zane Lopez MD [address] [place] [address] Consulting Physician Electrophysiology 05/16/21 Miscellaneous, Not In File 05/23/21 documented as of this encounter
--- OUTSIDE RECORDS SUMMARY | 2024-07-30 20:16 | XMS_ITS | Encounter Summary ---
Author Organization [facility] Address [address] [place] [address] Care Team Providers Care Board Handler Name Role Phone Tao Jeffers MD Primary Care Provider [phone] Victor M Barnes MD Unavailable [phone] Zane Lopez MD Unavailable [phone] Miscellaneous, Not In File Unavailable Unava ilable Reason for Visit * Reason Comments Follow-up 4 mo f/u Coronary Artery Disease ICD in situ Encounter Details Date Type Department Care Team (Late st Contact Info) Description 10/06/2022 9:15 AM CDT Office Visit [facility] Card[facility] [address] [place] [address] Victor M Barnes MD [address] [facility] [address] [place] [address] Chronic HFrEF (heart failure with reduced ejection fraction) (CMS/HCC) (HCC) (Primary Dx); Ischemic cardiomyopathy; Coronary artery disease involving duckwater coronary artery of duckwater heart without angina pectoris; Paroxysmal atrial fibrillation (CMS/HCC) (HCC); HTN (hypertension), benign; Mixed dyslipidemia; Biventricular implantable cardioverter-defibril lator (ICD) in situ; Chronic anticoagulation; S/P AV (atrioventricular) inocente ablation; S/P coronary artery stent placement Social History Tobacco Use Types Packs/Day Years Used Date Smoking Tobacco: Former Smokeless Tobacco: Never Sex and Gender Information Value Date Recorded Sex Assigned at Not on file 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 Gender Identity Not on file Sexual Orientation Not on file documented as of this encounter Last Filed Vital Signs Vital Sign Reading Time Taken Comments Blood Pressure 110/66 10/06/2022 9:12 AM CDT Pulse 71 10/06/2022 9:12 AM CDT Temperature - - Respiratory Rate - - Oxygen Saturation 96% 10/06/2022 9:12 AM CDT Inhaled Oxygen Concentration - - Weight 85.6 kg (188 lb 12.8 oz) 10/06/2022 9:12 AM CDT Height 180.3 cm (5' 11 ) 10/06/2022 9:12 AM CDT Body Mass Index 26.33 10/06/2022 9:12 AM CDT documented in this encounter Ordered Prescriptions Prescription Sig Dispense Quantity Refills Last Filled Start Date End Date sacubitriL-valsart an (ENTRESTO) 97-103 mg tabletIndications: chronic heart failure Take 1 tablet by mouth 2 (two) times a day 60 tablet 11 10/06/2022 12/09/2022 documented in this encounter Progress Notes * Victor M Barnes MD - 10/06/2022 9:15 AM CDT Images from the original note were not included. DATE OF VISIT: 10/06/2022 CHIEF COMPLAINT Chief Complaint Patient presents with ??? Follow-up 4 mo f/u ??? Coronary Artery Disease ??? ICD in situ ASSESSMENT Diagnoses and all orders for this visit: Chronic HFrEF (heart failure with reduced ejection fraction) (CMS/HCC) ([facility]) (Primary) - Basic metabolic panel; Future Ischemic cardiomyopathy Coronary artery disease involving duckwater coronary artery of duckwater heart without angina pectoris Paroxysmal atrial fibrillation (CMS/HCC) ([facility]) HTN (hypertension), benign Mixed dyslipidemia 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 Chronic anticoagulation S/P AV (atrioventricular) inocente ablation S/P coronary artery stent placement Other orders - sacubitriL-valsartan (ENTRESTO) 97-103 mg tablet; Take 1 tablet by mouth 2 (two) times a day PLAN/RECOMMENDATIONS Stable, persistent A. Fib status post AV junction ablation and biventricular ICD implantation due to persistent refractory atrial fibrillation and intolerable symptoms. Continue current medical therapy and systemic anticoagulation for stroke risk reduction. CHADS2 Vasc score 5. -Continue Eliquis 5 mg b.i.d.. Monitor for bleeding. Monitor bright red blood per rectum black darktarry stools. Notify the office immediately. If head injury, bleeding and or significant fall present to ER via EMS immediately. -advised may hold for 2 days prior to dental procedure but would continue aspirin without interruption. No anginal symptoms. Exertional dyspnea and fatigue did not improve after PCI. Aggressive CAD risk modification counseling performed. Continue current medical therapy. Notify office immediately with anginal symptoms. -status post overlapping 4.0 x 35 and 4.0 x 30 mm Orsiro FRIEDA to mid-distal RCA IVUS guided 04/16/21 -Completes 12 months this month then may stop Brilinta 90mg BID then immediately start ASA 81mg daily. Monitor for bleeding on Eliquis 5 mg twice daily. BP controlled, goal <140/90mmHg. Monitor BP on routine basis. Call with readings. Continue consistent cardiovascular exercise, weight loss, medication compliance, and low-sodium diet. -Entresto 49/51mg BID Lipids personally reviewed 04/03/22 LDL 54, well controlled goal LDL<70. Continue Atorvastatin 80mg [...] but not robust. -EF 35% by Echo, [facility]. -EF 45% by Echo 09/2021, improved. - Continue Lasix 20 mg daily. Continue routine ICD interrogations as scheduled. Follow-up with electrophysiology as scheduled. -recommended inc to 97/103mg BID and BMP in 1 week after increase. He agrees. Counseled on risks, benefits, side effects. Over 50% of this visit counseling BiV PPM, A.Fib, CHF, CAD, HTN, lipids, medications, lifestyle modification. Follow up in the office in 4 months or sooner as needed. Thank you for allowing me the privilege of participating in the care this very pleasant patient. Please do not hesitate to contact me with any additional questions or concerns. HPI Lm Jimenez is a 82 y.o. male with a PMHx of coronary artery disease s/p PCI in 1999, HTN, colon cancer in 2003, cataracts, BPH, pneumonia a few years ago which required hospitalization and appendectomy. He presented to [facility] on 01/01/2021 under the advice of his [...] loaded on amiodarone. 01/18/21 Hospital follow-up with SURGERY SPECIALIST - Lm Jimenez comes to the office [...] a presyncopal episode: he fell into the [employer] waste bin head first, got himself up [...] but rests then keeps going no problems. MEDICAL HISTORY Past Medical History: Diagnosis Date ??? Atrial fibrillation (CMS/HCC) (HCC) ??? Cardiomyopathy (HCC) ??? Coronary artery disease ??? Hyperlipidemia ??? Hypertension SOCIAL HISTORY reports that he has quit smoking. He has never used smokeless tobacco. He reports current drug use.Drug: Alcohol. FAMILY HISTORY family history is not on file. MEDICATIONS HOME MEDICATIONS : apixaban (ELIQUIS) 5 mg tablet aspirin (Adult Low Dose Aspirin) 81 mg enteric coated tablet atorvastatin (LIPITOR) 80 mg tablet cetirizine (ZyrTEC) 10 mg tablet furosemide (LASIX) 20 mg tablet metoprolol XL (TOPROL-XL) 50 mg extended release tablet tamsulosin (FLOMAX) 0.4 mg extended release capsule sacubitriL-valsartan (ENTRESTO) 49-51 mg tablet sacubitriL-valsartan (ENTRESTO) 97-103 mg tablet ALLERGIES Allergies Allergen Reactions ??? Codeine Swelling ??? Sulfur Swelling ??? Wheat Itching Takes Zyrtec for it REVIEW OF SYSTEMS Review of Systems Constitutional: Positive for weight gain. Negative for decreased appetite, diaphoresis, fever, malaise/fatigue, night sweats and weight loss. HENT: Negative for hearing loss and nosebleeds. [...] and are negative. PHYSICAL EXAM Vitals BP 110/66 (BP Location: Left arm, Patient Position: Sitting) Pulse 71 Ht 180.3 cm (5' 11 ) Wt 85.6 kg (188 lb 12.8 oz) SpO2 96% BMI 26.33 kg/m?? Weight: 85.6 kg (188 lb 12.8 oz) Height: 180.3 cm (5' 11 ) Body mass index is 26.33 kg/m??. Physical Exam Vitals reviewed. Constitutional: General: [...] orders placed or performed in visit on 04/03/22 POCT lipid panel Result Value Ref Range Cholesterol, POC <100 mg/dL HDL, POC 37 mg/dL Triglycerides, POC <45 mg/dL LDL, Direct, POC 54 mg/dL Chol/HDL Ratio, POC N/A Non-HDL Cholesterol, POC N/A mg/dL Cholesterol Total, POC <100 mg/dL 06/11/2021 Procedure Electrophysiology Study Radiofrequency Catheter Ablation [...] 06/28/21 Interpretation Summary This patient received a Ji BiV ICD. They had a routine in [...] Toprol-XL 50 mg daily Plan: 1) normal Ji BiV ICD evaluation 2) Ji remote transmission scheduled in 3 months. 3) the patient saw his primary care physician for shortness of breath, he did do a chest x-ray and diagnosis pneumonia and put him on a diuretic as well as a antibiotic. 4) I did notice is ankles had at least 1+ pitting edema and I told him to contact his scenic artist and get a appointment next week. 08/30/21 Interpretation Summary This patient received a Ji BiV ICD. They had a routine Oravel remote transmission on 08/26/2021. Device implant indications: [...] Anti-arrhythmic(s): Toprol-XL 50 mg Plan: 1) Normal Ji BiV ICD evaluation 2) Ji remote transmission scheduled in 3 months. 09/26/21 [...] 11/26/21 Interpretation Summary This patient received a Ji BiV ICD. They had a routine Ji remote transmission on 11/25/21. Device implant indications: [...] Anti-arrhythmic(s): Toprol-XL 50 mg Plan: 1) Normal Ji BiV ICD evaluation 2) Ji remote transmission scheduled in 3 months. 09/10/22 BiV ICD CHECK (REMOTE) Patient ID: Lm Jimenez is a 82 y.o. male. This patient received a Ji BiV ICD. They had a routine remote [...] Toprol-XL 50 mg daily PLAN: 1) normal Ji BiV ICD evaluation 2) Ji remote transmission scheduled in 3 months. 3) Programming appropriate for device settings I have personally reviewed EKG, electronic medical record, and bloodwork/lipids. Сергей Barnes MD, [facility] This note is dictated and transcribed using [employer] Direct Software. Vice Squad Police Officer variancesmay occur. Despite proofreading, typographical errors may occur. documented in this encounter Plan of Treatment Not on file documented as of this encounter Visit Diagnoses Diagnosis Chronic HFrEF (heart failure with reduced ejection fraction) (CMS/HCC) (HCC)- Primary Ischemic cardiomyopathy Other specified forms of chronic ischemic heart disease Coronary artery disease involving duckwater coronary artery of duckwater heart without angina pectoris Paroxysmal atrial fibrillation (CMS/HCC) ([facility]) Atrial fibrillation HTN (hypertension), benign Essential hypertension, benign Mixed dyslipidemia 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 Chronic anticoagulation Encounter for long-term (current) use of anticoagulants S/P AV (atrioventricular) inocente ablation Other postprocedural status S/P coronary artery stent placement Postsurgical percutaneous transluminal coronary angioplasty status documented in this encounter Discontinued Medications Medication Sig Discontinue Reason Start Date End Da te sacubitriL-valsartan (ENTRESTO) 49-51 mg tabletIndications:chroni c heart failure Take 1 tablet by mouth 2 (two) times a day 07/15/2022 10/06/2022 documented as of this encounter Care Teams Board Handler Relationship Specialty Start Date End Date Tao Jeffers MD [address] [place], [place] [address] PCP - General 12/18/11 Victor M Barnes MD [address] [place] [address] Consulting Physician Cardiology 05/16/21 Zane Lopez MD [address] [place] [address] Consulting Physician Electrophysiology 05/16/21 Miscellaneous, Not In File 05/23/21 documented as of this encounter
--- OUTSIDE RECORDS SUMMARY | 2024-07-30 20:16 | XMS_ITS | Encounter Summary ---
Author Organization [facility] Address [address] [place] [address] Care Team Providers Care Workforce Development Assistant Name Role Phone Tao Jeffers MD Primary Care Provider [phone] Victor M Barnes MD Unavailable [phone] Zane Lopez MD Unavailable [phone] Miscellaneous, Not In File Unavailable Unava ilable Reason for Visit * Cardiology (Routine) - Closed Specialty Diagnoses / Procedures Referred By Contac t Referred To Contact Diagnoses Paroxysmal atrial fibrillation (CMS/HCC) (HCC) Procedures DEVICE CHECK - IN OFFICE Zane Lopez MD [address] [place] [address] Phone: tel: fax: [facility] Referral ID Status Reason Start Date Expiration Date Visits Re quested Visits Authorized [id number] Closed 06/11/2021 07/11/2022 1 1 Encounter Details Date Type Department Care Team (Latest Contact Info) Description 07/02/2022 4:00 PM 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 CHIP 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 WORKER Ancillary Procedure [facility] [address], [place] [id number] Paroxysmal atrial fibrillation (CMS/HCC) (HCC); Biventricular implantable cardioverter-defibri llator (ICD) in situ Social History Tobacco Use Types Packs/Day Years Used Date Smoking Tobacco: Former Smokeless Tobacco: Never Sex and Gender Information Value Date Recorded Sex Assigned at Not on file Legal 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 Gender Identity Not on file Sexual Orientation Not on file documented as of this encounter Plan of Treatment Not on file documented as of this encounter Procedures Procedure Name Priority Date/Time Associated Diagnosis Comments DEVICE CHECK - IN OFFICE Routine 07/02/2022 3:06 PM ONYX CHIP TERRAZZO WORKER Paroxysmal atrial fibrillation (CMS/HCC) (HCC) documented in this encounter Results * DEVICE CHECK - IN OFFICE (07/02/2022 3:06 PM ONYX CHIP TERRAZZO WORKER) Anatomical Region Laterality Modality Other Narrative 07/02/2022 4:34 PM ONYX CHIP TERRAZZO WORKER Table formatting from the original result was not included. BiV ICD CHECK (IN OFFICE) Patient ID: Lm Jimenez is a 81 y.o. male. This patient received a Ji BiV ICD. ??They had a routine in office device interrogation on 07/02/22. Device implant indications: ??Ischemic cardiomyopathy, CHF, status post AV node ablation ?? Interrogation of the patient's device demonstrates the following: Presenting EGM: ??Bi V paced @ 70 bpm Underlying rhythm: ??Paced @ 40 Original Device Settings Right Ventricle Left Ventricle Sensitivity (mV) Auto mV N/A mV Pacing Outputs 1.5 V @ 0.5 ms 1.375 V @ 0.5 ms Testing Measurements Right Ventricle Left Ventricle Sensitivity (mV) Paced mV Paced mV Impedence (Ohms) 380 ohms 460 ohms Pace Threshold 0.5 V @ 0.5 ms 0.875 V @ 0.5 ms Pacing % 100 % 100 % HV Lead Impedance 44 ohms N/A Battery Status: ??6.4-6.9 years to JIAN, charge time 8.8 seconds. Episodes last 90 days/Comments: There were no new ventricular events noted on today's in office device interrogation. NORMAL DEVICE FUNCTION PROGRAMMED MEDICATIONS: Anti-coagulant(s): ??Eliquis 5 mg twice daily, aspirin 81 mg daily Anti-arrhythmic(s): ??Toprol XL 50 mg daily PLAN: 1) normal Ji BiV ICD evaluation 2) Ji remote transmission scheduled in 3 months. 3) Programming appropriate for device settings Yolie Jesus RN with Luis Angel Colon RN Zane Lopez MD [facility] PROCEDU RES Final Result documented in this encounter Visit Diagnoses Diagnosis Paroxysmal atrial fibrillation (CMS/HCC) (HCC) Atrial fibrillation 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 documented in this encounter Care Teams Workforce Development Assistant Relationship Specialty Start Date End Date Tao Jeffers MD [address] [place] [address] PCP - General 12/18/11 Victor M Barnes MD [address] [place], [place] [address] Consulting Physician Cardiology 05/16/21 Zane Lopez MD [address] [place] [address] Consulting Physician Electrophysiology 05/16/21 Miscellaneous, Not In File 05/23/21 documented as of this encounter
--- OUTSIDE RECORDS SUMMARY | 2024-07-30 20:16 | XMS_ITS | Encounter Summary ---
Author Organization [facility] Address [address] [place] [address] Care Team Providers Care Divinity Teacher Name Role Phone Tao Jeffers MD Primary Care Provider [phone] Victor M Barnes MD Unavailable [phone] Zane Lopez MD Unavailable [phone] Miscellaneous, Not In File Unavailable Unava ilable Reason for Visit * Cardiology (Routine) - Closed Specialty Diagnoses / Procedures Referred By Contac t Referred To Contact Diagnoses Ischemic cardiomyopathy Procedures DEVICE CHECK - REMOTE Zane Lopez MD [address] [place] [address] Phone: tel: fax: [facility] Referral ID Status Reason Start Date Expiration Date Visits Re quested Visits Authorized [id number] Closed 05/24/2021 06/23/2022 1 1 Encounter Details Date Type Department Care Team (Latest Contact Info) Description 03/03/2022 8:05 AM CDT Ancillary Procedure [facility] [address] [facility] [address] [address] Ischemic cardiomyopathy; Biventricular implantable cardioverter-defibr illator (ICD) in situ Social History Tobacco Use Types Packs/Day Years Used Date Smoking Tobacco: Former Smokeless Tobacco: Never Sex and Gender Information Value Date Recorded Sex Assigned at Not on file 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 ??They had a routine ??remote transmission on 03/03/2022 Device implant indications: ??Ischemic cardiomyopathy ?? Interrogation of the patient's device demonstrates the following: Presenting EGM: ??Bi V paced @ 70 bpm Lead Measurements Right Ventricle Left Ventricle Sensitivity (mV) 8.1 mV Not done mV Impedence (Ohms) 350 ohms 440 ohms Pace Threshold 0.625 V @ 0.5 ms 1.25 V @ 0.5 ms Pacing % 100 % 100 % HV Lead Impedance 42 ohms N/A LV 2 lead threshold was 1.125 volts at 0.5 milliseconds, impedance not measured. Battery Status: ??6.6 years to JIAN charge time 8.8 seconds Episodes last 90 days/Comments: There were no treated ventricular arrhythmias noted on today's remote interrogation. NORMAL DEVICE FUNCTION PROGRAMMED Anti-coagulant(s): ??Eliquis 5 mg twice daily, Brilinta 90 mg twice daily Anti-arrhythmic(s): ??Toprol-XL 50 mg daily Plan: 1) normal Ji BiV ICD evaluation 2) Ji remote transmission scheduled in 3 months. Jose Hutchinson RGerald. Zane Lopez MD [facility] PROCEDU RES Final Result documented in this encounter Visit Diagnoses Diagnosis Ischemic cardiomyopathy Other specified forms of chronic ischemic heart disease 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 documented in this encounter Care Teams Divinity Teacher Relationship Specialty Start Date End Date Tao Jeffers MD [address] [place] [address] PCP - General 12/18/11 Victor M Barnes MD [facility] [place] [address] Consulting Physician Cardiology 05/16/21 Zane Lopez MD [address] [place], [place] [id number] Consulting Physician Electrophysiology 05/16/21 Miscellaneous, Not In File 05/23/21 documented as of this encounter
--- OUTSIDE RECORDS SUMMARY | 2024-07-30 20:16 | XMS_ITS | Encounter Summary ---
Author Organization [facility] Address [address] [place] [address] Care Team Providers Care Senior Reactor Operator Name Role Phone Tao Jeffers MD Primary Care Provider [phone] Victor M Barnes MD Unavailable [phone] Zane Lopez MD Unavailable [phone] Miscellaneous, Not In File Unavailable Unava ilable Reason for Visit * Cardiology (Routine) - Closed Specialty Diagnoses / Procedures Referred By Contac t Referred To Contact Diagnoses Ischemic cardiomyopathy Procedures DEVICE CHECK - REMOTE Ceasar Rosas MD [address] [address] Phone: tel: fax: [facility] Referral ID Status Reason Start Date Expiration Date Visits Re quested Visits Authorized [id number] Closed 09/03/2022 03/03/2024 1 1 Encounter Details Date Type Department Care Team (Latest Contact Info) Description 09/08/2022 1:15 PM SENIOR NET PROGRAMMER Ancillary Procedure Ar[facility]hythmia Center [address] [facility] [address] [place] [id number] Ischemic cardiomyopathy; Biventricular implantable cardioverter-defibr illator (ICD) in situ Social History Tobacco Use Types Packs/Day Years Used Date Smoking Tobacco: Former Smokeless Tobacco: Never Sex and Gender Information Value Date Recorded Sex Assigned at Not on file Legal Sex Male 12:29 AM SENIOR NET PROGRAMMER Gender Identity Not on file Sexual Orientation Not on file documented as of this encounter Plan of Treatment Not on file documented as of this encounter Procedures Procedure Name Priority Date/Time Associated Diagnosis Comments DEVICE CHECK - REMOTE Routine 09/08/2022 10:46 AM SENIOR NET PROGRAMMER Ischemic cardiomyopathy documented in this encounter Results * DEVICE CHECK - REMOTE (09/08/2022 10:46 AM SENIOR NET PROGRAMMER) Anatomical Region Laterality Modality Other Narrative 09/10/2022 3:25 PM SENIOR NET PROGRAMMER Table formatting from the original result was not included. BiV ICD CHECK (REMOTE) Patient ID: Lm Jimenez is a 82 y.o. male. This patient received a Ji BiV ICD. ??They had a routine remote [...] ohms N/A Battery Status: ??6.3 years to [facility], charge time 8.8 seconds. Episodes last 90 days/Comments: There were no treated ventricular arrhythmias noted on today's remote interrogation. NORMAL DEVICE FUNCTION PROGRAMMED MEDICATIONS: Anti-coagulant(s): ??Eliquis 5 mg twice daily, aspirin 81 mg daily Anti-arrhythmic(s): ??Toprol-XL 50 mg daily PLAN: 1) normal Ji BiV ICD evaluation 2) Ji remote transmission scheduled in 3 months. 3) Programming appropriate for device settings Jose Hutchinson, RN us Ceasar Rosas MD [facility] PRO CEDURES Final Result documented in this encounter Visit Diagnoses Diagnosis Ischemic cardiomyopathy Other specified forms of chronic ischemic heart disease 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 documented in this encounter Care Teams Senior Reactor Operator Relationship Specialty Start Date End Date Tao Jeffers MD [address] [place] [address] PCP - General 12/18/11 Victor M Barnes MD [address] [place] [address] Consulting Physician Cardiology 05/16/21 Zane Lopez MD [address] [place] [address] Consulting Physician Electrophysiology 05/16/21 Miscellaneous, Not In File 05/23/21 documented as of this encounter
--- OUTSIDE RECORDS SUMMARY | 2024-07-30 20:16 | XMS_ITS | Encounter Summary ---
Author Organization [facility] Address [address] [place] [address] Care Team Providers Care Cryogenics Repairer Name Role Phone Tao Jeffers MD Primary Care Provider [phone] Victor M Barnes MD Unavailable [phone] Zane Lopez MD Unavailable Miscellaneous, Not In File Unavailable Unava ilable Reason for Visit * Reason Comments Atrial Fibrillation Coronary Artery Disease Hypertension overdue one mo f/u Encounter Details Date Type Department Care Team (Late st Contact Info) Description 07/03/2021 1:00 PM DATA ENGINEER Office Visit [facility] Medical [facility] Cardiology [address] [place] [address] Victor M Barnes MD [address] [facility] [address] [place] [address] Coronary artery disease involving ivanof bay coronary artery of ivanof bay heart without angina pectoris (Primary Dx); Chronic HFrEF (heart failure with reduced ejection fraction) (CMS/HCC) (HCC); Ischemic cardiomyopathy; Persistent atrial fibrillation (HCC); S/P AV (atrioventricular) inocente ablation; HTN (hypertension), benign; Mixed dyslipidemia; Biventricular implantable cardioverter-defibril lator (ICD) in situ; Chronic anticoagulation; S/P coronary artery stent placement Social History Tobacco Use Types Packs/Day Years Used Date Smoking Tobacco: Former Smokeless Tobacco: Never Sex and Gender Information Value Date Recorded Sex Assigned at Not on file Legal Sex Male 12:29 AM DATA ENGINEER Gender Identity Not on file Sexual Orientation Not on file documented as of this encounter Last Filed Vital Signs Vital Sign Reading Time Taken Comments Blood Pressure 124/76 07/03/2021 12:57 PM DATA ENGINEER Pulse 70 07/03/2021 12:57 PM DATA ENGINEER Temperature - - Respiratory Rate - - Oxygen Saturation 97% 07/03/2021 12:57 PM DATA ENGINEER Inhaled Oxygen Concentration - - Weight 78 kg (172 lb) 07/03/2021 12:57 PM DATA ENGINEER Height 180.3 cm (5' 11 ) 07/03/2021 12:57 PM DATA ENGINEER Body Mass Index 23.99 07/03/2021 12:57 PM DATA ENGINEER documented in this encounter Progress Notes * Victor M Barnes MD - 07/03/2021 1:00 PM CST Images from the original note were not included. DATE OF VISIT: 07/03/2021 CHIEF COMPLAINT Chief Complaint Patient presents with ??? Atrial Fibrillation ??? Coronary Artery Disease ??? Hypertension overdue one mo f/u ASSESSMENT Diagnoses and all orders for this visit: Coronary artery disease involving [place] bay coronary artery of [place] heart without angina pectoris (Primary) Chronic HFrEF (heart failure with reduced ejection fraction) (CMS/HCC) (HCC) Ischemic cardiomyopathy Persistent atrial fibrillation (HCC) S/P AV (atrioventricular) inocente ablation HTN (hypertension), benign Mixed dyslipidemia 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 Chronic anticoagulation S/P coronary artery stent placement PLAN/RECOMMENDATIONS 1. Stable, persistent A. Fib status post AV junction ablation and biventricular ICD implantation due to persistent refractory atrial fibrillation and intolerable symptoms. Continue current medical therapy and systemic anticoagulation for stroke risk reduction. CHADS2 Vasc score 5. -continue Eliquis 5 mg b.i.d.. Monitor for bleeding. Discussed concomitant significant bleeding risk with and platelet Brilinta and Eliquis and alternatives including clopidogrel if necessary. Epistaxis has resolved at this time. If recurrence would change antiplatelet therapy.. Monitor bright red blood per rectum black dark tarry stools. Notify the office immediately. If head injury, bleeding and or significant fall present to ER via EMS immediately. 2. No anginal symptoms. Exertional dyspnea and fatigue did not improve after PCI. Aggressive CAD risk modification counseling performed. Continue current medical therapy. Notify office immediately with anginal symptoms. -status post overlapping 4.0 x 35 and 4.0 x 30 mm Orsiro FRIEDA to mid-distal RCA IVUS guided 04/16/21 -completed 30 days ASA 81mg daily then stopped with continued Brilinta 90mg BID. 3. BP controlled, goal <140/90mmHg. Monitor BP on routine basis. Call with readings. Continue consistent cardiovascular exercise, weight loss, medication compliance, and low-sodium diet. -lisinopril 20 mg daily 4. Lipids personally reviewed 01/03/21 LDL 53, well controlled goal LDL<70. Continue [id number] qhs therapy and lifestyle modification. 5. Compensated HFrEF NYHA class III. CHF counseling performed. Follow daily weight, less than 2 g daily sodium intake, medication compliance. Call w/ wt gain >3lb in 24 hrs or worsening edema and/or CAMACHO. -With combination of PCI and attempts at maintenance of SR, I would hope to see improvement in EF. -EF 35% by Echo, [facility]. -discussed this at length. Discussed hope his EF will improve as well as quality of life and improved activity tolerance. He admits he is feeling notably improved but not quite to where he would like. Continue Lasix 20 mg daily. Discussed up titration if further weight gain, worsening edema, CAMACHO orthopnea and or PND. Patient wishes to stain current regimen but will communicate new concerns with recommendations to follow. Overall, he has more interested in pursuing more activity which is a definite improvement overall. Continue routine ICD interrogations as scheduled. Follow-up with electrophysiology as scheduled. -plan to repeat 2D echocardiogram after his next visit to reassess LV function, valve pathology andpulmonary pressures status post AV junctional ablation and biventricular pacing Over 50% of this visit counseling A.Fib, CAD, HTN, lipids, medications, lifestyle modification. Follow up in the office in 2 months or sooner as needed. Thank you for allowing me the privilege of participating in the care this very pleasant patient. Please do not hesitate to contact me with any additional questions or concerns. HPI Lm Jimenez is a 80 y.o. male with a PMHx of coronary artery disease s/p PCI in 1999, HTN, colon cancer in 2003, cataracts, BPH, pneumonia a few years ago which required hospitalization and appendectomy. He presented to [facility] on 01/01/2021 under the advice of [...] RVR so he was loaded on amiodarone. ?? 01/18/21 Hospital follow-up with HI LIFT OPERATOR - Lm Jimenez comes to the [...] anteroseptal infarct, rate 113 beats per minute ?? 02/11/21 CAT visit-after the last visit, the [...] rate 92 beats per minute, QTC 475MS ?? 04/08/21 CAT visit-he called the office last [...] a presyncopal episode: he fell into the [employer] waste bin head first, got himself up [...] coming up stairs. Taking Lasix 20mg daily. MEDICAL HISTORY Past Medical History: Diagnosis Date ??? Atrial fibrillation (CMS/HCC) (HCC) ??? Cardiomyopathy (HCC) ??? Coronary artery disease ??? Hyperlipidemia ??? Hypertension SOCIAL HISTORY reports that he has quit smoking. He has never used smokeless tobacco. He reports current drug use.Drug: Alcohol. FAMILY HISTORY family history is not on file. MEDICATIONS HOME MEDICATIONS : apixaban (ELIQUIS) 5 mg tablet atorvastatin (LIPITOR) 80 mg tablet Brilinta 90 mg tablet cetirizine (ZyrTEC) 10 mg tablet furosemide (LASIX) 20 mg tablet levoFLOXacin (LEVAQUIN) 500 mg tablet losartan (COZAAR) 25 mg tablet metoprolol XL (TOPROL-XL) 50 mg extended release tablet tamsulosin (FLOMAX) 0.4 mg extended release capsule aspirin 81 mg enteric coated tablet ALLERGIES Allergies Allergen Reactions ??? Codeine Swelling ??? Sulfur Swelling ??? Wheat Itching Takes Zyrtec for it REVIEW OF SYSTEMS Review of Systems Constitutional: Positive for malaise/fatigue and weight gain. Negative for decreased appetite, diaphoresis, fever, night sweats and weight loss. HENT: Negative for hearing loss and nosebleeds. Eyes: Negative for blurred vision and pain. Cardiovascular: Positive for leg swelling. Negative for chest pain, claudication, dyspnea on exertion, irregular heartbeat, near-syncope, orthopnea, palpitations, paroxysmal nocturnal dyspnea and syncope. Respiratory: Positive for shortness of breath. Negative for cough, hemoptysis, snoring and wheezing. Endocrine: Negative for cold intolerance and heat intolerance. Hematologic/Lymphatic: Negative for bleeding problem. Bruises/bleeds easily. Skin: Negative for color change, itching, rash and suspicious lesions. Musculoskeletal: Negative for arthritis, falls, joint pain, muscle weakness and myalgias. Gastrointestinal: Negative for [...] and are negative. PHYSICAL EXAM Vitals BP 124/76 (BP Location: Left arm, Patient Position: Sitting) Pulse 70 Ht 180.3 cm (5' 11 ) Wt 78 kg (172 lb) SpO2 97% BMI 23.99 kg/m?? Weight: 78 kg (172 lb) Height: 180.3 cm (5' 11 ) Body mass index is 23.99 kg/m??. Physical Exam Vitals reviewed. Constitutional: General: [...] motion and neck supple. Right lower leg: Edema present. Left lower leg: Edema present. Comments: Trace to 1+ bilateral LE edema Palpable subcutaneous ICD left anterior chest wall [...] orders placed or performed in visit on 01/21/21 Lipid panel Result Value Ref Range SCRIBED Cholesterol, Total 105 0 - 200 SCRIBED HDL 33 (A) 40 - 100 SCRIBED LDL 53 0 - 100 SCRIBED Triglycerides 48 0 - 150 06/11/2021 Procedure Electrophysiology Study Radiofrequency Catheter Ablation of AV Junction ?? Patient History Recurrent AF with rapid ventricular response rates despite medical therapy ?? Method After informed consent had been obtained, [...] access was achieved with ultrasound guidance, and sheaths were placed. A multipolar catheter was advanced to the right atrium, His bundle recording position, and the right ventricle. Baseline conduction intervals were performed. RV pacing and capture was confirmed, and antegrade AV function was assessed. Catheter ablation was performed as described below. At the end of the procedure, all catheters and sheaths were removed, hemostasis was achieved with a vascular closure device, and the patient was taken to the recovery area in stable condition. The ICD was interrogated and programmed pre- and post-procedure. Parameters were satisfactory, and the device was programmed to its final settings. Access Sites: Right femoral vein: 1 sheath ?? Ablation Using a 3.5 mm tip irrigated ablation catheter, the anterior septum was mapped to achieve a His signal with a maximal amplitude atrial electrogram. RF application resulted in complete heart block. After a waiting period, complete heart block persisted with slow escape rhythm 06/28/21 Interpretation Summary This patient received a Ji BiV ICD. They had a routine in office transmission on 06/28/2021 ?? Device implant indications: Ischemic cardiomyopathy Interrogation of the patient's device demonstrates the following: ?? Presenting EGM: Bi V paced @ 7 0 bpm ?? Lead Measurements ?? Right Ventricle Left Ventricle Sensitivity (mV) Paced mV Not done mV Impedence (Ohms) 360 ohms 290 ohms Pace Threshold 0.5 V @ 0.5 ms 0.75 V @ 0.5 ms Pacing % 100 % 100 % HV Lead Impedance 36 ohms N/A ? Battery Status: 7.0 years to JIAN charge time 9.0 seconds ?? Episodes last 90 days/Comments: There were no treated ventricular arrhythmias noted on today's in office device interrogation. ?? NORMAL DEVICE FUNCTION PROGRAMMED ?? Anti-coagulant(s): Eliquis 5 mg twice daily, aspirin 81 mg daily, Brilinta 90 mg twice daily Anti-arrhythmic(s): Toprol-XL 50 mg daily ?? Plan: 1) normal Ji BiV ICD evaluation [...] and I told him to contact his photographic spotter and get a appointment next week. ?? I have personally reviewed EKG, electronic medical record, and bloodwork/lipids. Сергей Barnes MD, [facility] This note is dictated and transcribed using [employer] Software. Supplemental Nurse variancesmay occur. Despite proofreading, typographical errors may occur. ENGINEER documented in this encounter Plan of Treatment Not on file documented as of this encounter Visit Diagnoses Diagnosis Coronary artery disease involving [place] coronary artery of [place] heart without angina pectoris- Primary Chronic HFrEF (heart failure with reduced ejection fraction) (CMS/HCC) (HCC) Ischemic cardiomyopathy Other specified forms of chronic ischemic heart disease Persistent atrial fibrillation (HCC) Atrial fibrillation S/P AV (atrioventricular) inocente ablation Other postprocedural status HTN (hypertension), benign Essential hypertension, benign Mixed dyslipidemia 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 Chronic anticoagulation Encounter for long-term (current) use of anticoagulants S/P coronary artery stent placement Postsurgical percutaneous transluminal coronary angioplasty status documented in this encounter Discontinued Medications Medication Sig Discontinue Reason Start Date End Da te aspirin 81 mg enteric coated tablet Take 81 mg by mouth daily 07/03/2021 documented as of this encounter Historical Medications * This list may reflect changes made after this encounter. furosemide (LASIX) 20 mg tablet Take 1 tablet (20 mg total) by mouth as needed 06/24/2021 levoFLOXacin (LEVAQUIN) 500 mg tablet TAKE 1 TABLET BY MOUTH EVERY DAY FOR 10 DAYS 06/24/2021 09/05/2021 added in this encounter Care Teams Cryogenics Repairer Relationship Specialty Start Date End Date Tao Jeffers MD [address] [place], [place] [address] PCP - General 12/18/11 Victor M Barnes MD [address] [place] [address] Consulting Physician Cardiology 05/16/21 Zane Lopez MD [address] [place], [place] [id number] Consulting Physician Electrophysiology 05/16/21 Miscellaneous, Not In File 05/23/21 documented as of this encounter
--- OUTSIDE RECORDS SUMMARY | 2024-07-30 20:16 | XMS_ITS | Encounter Summary ---
Author Organization [facility] Address [address] [place] [address] Care Team Providers Care Survey Researcher Name Role Phone Tao Jeffers MD Primary Care Provider Victor M Barnes MD Unavailable Zane Lopez MD Unavailable Miscellaneous, Not In File Unavailable Unava ilable Encounter Details Date Type Department Care Team (Late st Contact Info) Description 09/11/[address] [facility] Cardiology [address] [place] [address] Victor M Barnes MD [address] [id number] Social History Tobacco Use Types Packs/Day Years Used Date Smoking Tobacco: Former Smokeless Tobacco: Never Sex and Gender Information Value Date Recorded Sex Assigned at Not on file Legal Sex Male 12:29 AM RIVET TESTER Gender Identity Not on file Sexual Orientation Not on file documented as of this encounter Miscellaneous Notes * Telephone Encounter - Yuko Burden RN - 09/11/2021 2:16 PM RIVET TESTER Spoke with pt-he asked if he was still able use his riding rivet heater gas-his cousin told him it could interfere with his pacemaker. Spoke with Sonia CRUZ and she said as long as pt is 12 inches away from the engine when its running he should be fine-informed pt of this information and he verbalized understanding. T TESTER * Telephone Encounter - An Cristina MA - 09/11/2021 11:34 AM CST Pt calling requesting that nurse Yuko gives him a call today after 2pm, pt did not want to go in to details, stated she knows what the call is in regards to. Cb:[phone] RICKY Mancia T TESTER documented in this encounter Plan of Treatment Not on file documented as of this encounter Visit Diagnoses Not on filedocumented in this encounter Care Teams Survey Researcher Relationship Specialty Start Date End Date Tao Jeffers MD [address] [place], [place] [address] PCP - General 12/18/11 Victor M Barnes MD [address] [place], [place] [id number] Consulting Physician Cardiology 05/16/21 Zane Lopez MD [address] [place], [place] [address] Consulting Physician Electrophysiology 05/16/21 Miscellaneous, Not In File 05/23/21 documented as of this encounter
--- OUTSIDE RECORDS SUMMARY | 2024-07-30 20:16 | XMS_ITS | Encounter Summary ---
Author Organization [facility] Address [address] [place] [address] Care Team Providers Care Mold Washer Name Role Phone Tao Jeffers MD Primary Care Provider [phone] Victor M Barnes MD Unavailable [phone] Zane Lopez MD Unavailable [phone] Miscellaneous, Not In File Unavailable Unava ilable Reason for Visit * Cardiology (Routine) - Closed Specialty Diagnoses / Procedures Referred By Contac t Referred To Contact Diagnoses Ischemic cardiomyopathy Procedures DEVICE CHECK - REMOTE Zane Lopez MD [address] [place] [address] Phone: tel: fax: [facility] Referral ID Status Reason Start Date Expiration Date Visits Re quested Visits Authorized [id number] Closed 05/24/2021 06/23/2022 1 1 Encounter Details Date Type Department Care Team (Latest Contact Info) Description 08/26/2021 8:00 AM A AND P TECHNICIAN Ancillary Procedure Ar[facility] [address] [place] [address] Ischemic cardiomyopathy; Biventricular implantable cardioverter-defibr illator (ICD) in situ Social History Tobacco Use Types Packs/Day Years Used Date Smoking Tobacco: Former Smokeless Tobacco: Never Sex and Gender Information Value Date Recorded Sex Assigned at Not on file Legal Sex Male 12:29 AM A AND P TECHNICIAN Gender Identity Not on file Sexual Orientation Not on file documented as of this encounter Plan of Treatment Not on file documented as of this encounter Procedures Procedure Name Priority Date/Time Associated Diagnosis Comments DEVICE CHECK - REMOTE Routine 08/26/2021 11:14 AM A AND P TECHNICIAN Ischemic cardiomyopathy documented in this encounter Results * DEVICE CHECK - REMOTE (08/26/2021 11:14 AM A AND P TECHNICIAN) Anatomical Region Laterality Modality Other Narrative 08/30/2021 1:58 PM A AND P TECHNICIAN This patient received a Ji BiV ICD. ??They had a routine Ji remote transmission on 08/26/2021. Device implant indications: ??Ischemic cardiomyopathy, congestive heart failure, paroxysmal atrial fibrillation, status post AV node ablation for AFib with RVR ?? Interrogation of the patient's device demonstrates the following: Presenting EGM: ??Bi V pace @ 70 bpm Lead Measurements Right Ventricle Left Ventricle Sensitivity (mV) 6.6 mV Not done mV Impedence (Ohms) 380 ohms 400 ohms Pace Threshold .625 V @ .50 ms .625 V @ .50 ms Pacing % 100 % 100 % HV Lead Impedance 36 ohms N/A Battery Status: ??6.8-7.3 years to JIAN, charge time 9.0 seconds. Episodes last 90 days/Comments: There were no new ventricular events noted on today's remote interrogation. NORMAL DEVICE FUNCTION PROGRAMMED Anti-coagulant(s): ??Brilinta 90 mg, Eliquis 5 mg twice daily Anti-arrhythmic(s): ??Toprol-XL 50 mg Plan: 1) Normal Ji BiV ICD evaluation 2) Ji remote transmission scheduled in 3 months. Ayla Colon R.N Zane Lopez MD [facility]ED[facility] RES Final Result documented in this encounter Visit Diagnoses Diagnosis Ischemic cardiomyopathy Other specified forms of chronic ischemic heart disease 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 documented in this encounter Care Teams Mold Washer Relationship Specialty Start Date End Date Tao Jeffers MD [address] [place] [address] PCP - General 12/18/11 Victor M Barnes MD [address] [place] [address] Consulting Physician Cardiology 05/16/21 Zane Lopez MD [address] [place] [address] Consulting Physician Electrophysiology 05/16/21 Miscellaneous, Not In File 05/23/21 documented as of this encounter
--- OUTSIDE RECORDS SUMMARY | 2024-07-30 20:16 | XMS_ITS | Encounter Summary ---
Author Organization [facility] Address [address] [place] [address] Care Team Providers Care Animal Impersonator Name Role Phone Tao Jeffers MD Primary Care Provider [phone] Victor M Barnes MD Unavailable [phone] Zane Lopez MD Unavailable Miscellaneous, Not In File Unavailable Unava ilable Reason for Visit * Reason Comments Follow-up 2 mo Encounter Details Date Type Department Care Team (Late st Contact Info) Description 06/03/2022 8:30 AM STITCHDOWN THREAD LASTER Office Visit [facility] Medical [facility] Cardiology [address] [facility] [address] [place] [address] Yolie Chao, MARJORIE [address] [place] [address] Coronary artery disease involving tolowa dee-ni' coronary artery of tolowa dee-ni' heart without angina pectoris (Primary Dx); Chronic HFrEF (heart failure with reduced ejection fraction) (CMS/HCC) (HCC); S/P AV (atrioventricular) inocente ablation; Biventricular implantable cardioverter-defibrilla tor (ICD) in situ; Chronic anticoagulation Social History Tobacco Use Types Packs/Day Years Used Date Smoking Tobacco: Former Smokeless Tobacco: Never Tobacco Cessation:Counseling Given: Not Answered Sex and Gender Information Value Date Recorded Sex Assigned at Not on file Legal Sex Male 12:29 AM STITCHDOWN THREAD LASTER Gender Identity Not on file Sexual Orientation Not on file documented as of this encounter Last Filed Vital Signs Vital Sign Reading Time Taken Comments Blood Pressure 134/68 06/03/2022 8:21 AM STITCHDOWN THREAD LASTER Pulse 71 06/03/2022 8:21 AM STITCHDOWN THREAD LASTER Temperature - - Respiratory Rate - - Oxygen Saturation 97% 06/03/2022 8:21 AM STITCHDOWN THREAD LASTER Inhaled Oxygen Concentration - - Weight 83 kg (183 lb) 06/03/2022 8:21 AM STITCHDOWN THREAD LASTER Height 180.3 cm (5' 11 ) 06/03/2022 8:21 AM STITCHDOWN THREAD LASTER Body Mass Index 25.52 06/03/2022 8:21 AM STITCHDOWN THREAD LASTER documented in this encounter Progress Notes * Yolie Chao NP - 06/03/2022 8:30 AM CST Images from the original note were not included. [facility] Cardiology [address] [place] [address] Date of Visit: 06/03/2022 Patient ID: Lm Jimenez 1940 Chief Complaint Patient presents with Follow-up 2 mo Lm Jimenez is a 81 y.o. male who is an established patient of Dr. Barnes with a history of CAD, AFib, cardiomyopathy, returning for two-month follow-up. History of Present Illness: Lm Jimenez is a 81 y.o. male with a PMHx of coronary artery disease s/p PCI in 1999, HTN, colon cancer in 2003, cataracts, BPH, pneumonia a few years ago which required hospitalization and appendectomy. He presented to [facility] on 01/01/2021 under the advice [...] loaded on amiodarone. 01/18/21 Hospital follow-up with [facility] - Lm Jimenez comes to the office [...] study some nights he can sleep well. 06/03/22 CAT visit-at the last visit he was started on Entresto. He had no perceived problems with it. He has now finished 1 year Brilinta and has transitioned to aspirin 81 mg daily. He is going to get a tooth extracted this week. He can go up and down the stairs in his home multiple times a day without problem, however he will get winded if he has to walk farther distances but otherwise he tolerates his daily activity without problem, including cleaning house. He takes furosemide as needed. Hewas able to regain weight he lost after his 's . Records that I personally reviewed on the day of this visit include: (the interpretation is outlined in the HPI above) 04/03/[address] Barnes I have also reviewed: allergies, current medications, past family history, past medical history, past social history, past surgical history and problem list Medical History: Past Medical History: Diagnosis Date Atrial fibrillation (CMS/HCC) (HCC) Cardiomyopathy (HCC) Coronary artery disease Hyperlipidemia Hypertension Past Surgical History: Procedure Laterality Date CARDIOVERSION CORONARY ANGIOPLASTY 04/15/2000 3x13 mm BMS to prox LAD and 4x28 mm BMS to RCA Social History Tobacco Use Smoking Status Former Smokeless Tobacco Never Social History Tobacco Use Smoking status: Former Smokeless tobacco: Never Substance and Sexual Activity Drug use: Yes Types: Alcohol Comment: drinks alcohol very seldomly Sexual activity: None Alcohol Use: Not on file History reviewed. No pertinent family history. Review of Systems Constitutional: Positive for weight gain (intentional). Negative for diaphoresis, fever, malaise/fatigue and weight loss. HENT: Negative for hearing loss. Eyes: Negative for visual disturbance. Cardiovascular: Negative for chest pain, claudication, dyspnea on exertion, leg swelling, orthopnea, palpitations, paroxysmal nocturnal dyspnea and syncope. Respiratory: Negative for cough, hemoptysis, shortness of breath, snoring and wheezing. Hematologic/Lymphatic: Does not bruise/bleed easily. Skin: Negative for poor wound healing and rash. Musculoskeletal: Negative for joint pain and myalgias. Gastrointestinal: Negative for heartburn, nausea and vomiting. Genitourinary: Negative for hematuria. Neurological: Negative for dizziness, headaches and light-headedness. Psychiatric/Behavioral: Negative for depression. The patient is not nervous/anxious. Vital Signs: BP 134/68 (BP Location: Left arm, Patient Position: Sitting) Pulse 71 Ht 180.3 cm (5' 11 ) Wt83 kg (183 lb) SpO2 97% BMI 25.52 kg/m?? Physical Exam Constitutional: General: He is not in acute distress. Appearance: He is well-developed. HENT: Head: Normocephalic and atraumatic. Nose: Comments: Wearing a mask Eyes: General: No scleral icterus. Conjunctiva/sclera: Conjunctivae normal. Neck: Vascular: No JVD. Trachea: No tracheal deviation. Cardiovascular: Rate and Rhythm: Normal rate and regular rhythm. Heart sounds: Normal heart sounds. No murmur heard. Comments: Left chest device generator site nontender Pulmonary: Effort: Pulmonary effort is normal. No respiratory distress. Breath sounds: Normal breath sounds. Musculoskeletal: Right lower leg: No edema. Left lower leg: No edema. Skin: General: Skin is warm and dry. Neurological: Mental Status: He is alert and oriented to person, place, and time. Psychiatric: Mood and Affect: Mood normal. Behavior: Behavior normal. Allergies Allergen Reactions Codeine Swelling Sulfur Swelling Wheat Itching Takes Zyrtec for it Current Outpatient Medications: apixaban (ELIQUIS) 5 mg [...] 3 cetirizine (ZyrTEC) 10 mg tablet, Take 10 mg by mouth daily, Disp: , Rfl: furosemide (LASIX) 20 mg tablet, Take 20 mg by mouth daily, Disp: , Rfl: metoprolol XL (TOPROL-XL) 50 mg extended release tablet, Take 1 tablet (50 mg total) by mouth daily, Disp: 90 tablet, Rfl: 3 sacubitriL-valsartan (ENTRESTO) 49-51 mg tablet, Take 1 tablet by mouth 2 (two) times a day, Disp: 60 tablet, Rfl: 11 tamsulosin (FLOMAX) 0.4 mg extended release capsule, Take 0.4 mg by mouth every morning, Disp: , Rfl: No results found for: POTASSIUM, BUNSER, CREATININE, CHOL, TRIG, LDL, LDLCALC, HDL No results found for: WBC, HGB, HCT, MCV, PLT No results found for this or any previous visit (from the past 4 hour(s)). Assessment: Diagnoses and all orders for this visit: Coronary artery disease involving tolowa dee-ni' coronary artery of tolowa dee-ni' heart without angina pectoris (Primary) Chronic HFrEF (heart failure with reduced ejection fraction) (CMS/HCC) (HCC) S/P AV (atrioventricular) inocente ablation 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 Chronic anticoagulation Plan/Recommendations: He denies angina. It has been over 1 year since his PCI so he has stopped Brilinta and transition to aspirin 81 mg daily. LDL was checked at last visit and is at goal. Continue aspirin and atorvastatin. He was transitioned to Entresto at the last visit and had no problems with that. He had a BMP drawnbut I do not have that result so I will follow-up on that. I reviewed signs/symptoms of CHF with the patient's so he would recognize this if it occurred. Continue Entresto and metoprolol. Continue furosemide as needed. He is s/p AV node ablation with Bi V ICD implanted under the care of [facility]. He has follow-up there next month. Continue anticoagulation with Eliquis. Return to the office to see Dr. Barnes in 3-4 months. Call us sooner with questions or concerns. 06/03/2022 KITTY Bolanos-BC Nurse Practitioner with [facility] Cardiology This note is dictated and transcribed using [employer] Direct Software. Grainer Machine variancesmay occur. Despite proofreading, typographical errors may occur. CHDOWN THREAD LASTER documented in this encounter Plan of Treatment Not on file documented as of this encounter Visit Diagnoses Diagnosis Coronary artery disease involving tolowa dee-ni' coronary artery of tolowa dee-ni' heart without angina pectoris- Primary Chronic HFrEF (heart failure with reduced ejection fraction) (CMS/HCC) ([facility]) S/P AV (atrioventricular) inocente ablation Other postprocedural status 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 Chronic anticoagulation Encounter for long-term (current) use of anticoagulants documented in this encounter Care Teams Animal Impersonator Relationship Specialty Start Date End Date Tao Jeffers MD [address] [place] [address] PCP - General 12/18/11 Victor M Barnes MD [address] [place], [place] [address] Consulting Physician Cardiology 05/16/21 Zane Lopez MD [address] [place], [place] [phone] Consulting Physician Electrophysiology 05/16/21 Miscellaneous, Not In File 05/23/21 documented as of this encounter
--- OUTSIDE RECORDS SUMMARY | 2024-07-30 20:16 | XMS_ITS | Encounter Summary ---
Author Organization [facility] Address [address] [place] [address] Care Team Providers Care Teacher Preschool Name Role Phone Tao Jeffers MD Primary Care Provider [phone] Victor M Barnes MD Unavailable [phone] Zane Lopez MD Unavailable [phone] Miscellaneous, Not In File Unavailable Unava ilable Reason for Visit * Cardiology (Routine) - Closed Specialty Diagnoses / Procedures Referred By Contac t Referred To Contact Diagnoses Ischemic cardiomyopathy Procedures DEVICE CHECK - REMOTE Ceasar Rosas MD [address] [facility], [place] [address] Phone: tel: fax: [facility] Referral ID Status Reason Start Date Expiration Date Visits Re quested Visits Authorized [id number] Closed 09/03/2022 03/03/2024 1 1 Encounter Details Date Type Department Care Team (Latest Contact Info) Description 03/10/2023 10:45 AM CDT Ancillary Procedure [facility] Cardiology [address] [place] [phone] Atrial fibrillation, unspecified type (HCC) [I48.91] (Primary Dx); Ischemic cardiomyopathy; S/P AV (atrioventricular) inocente ablation [Z98.890]; Chronic HFrEF (heart failure with reduced ejection fraction) (CMS/HCC) (HCC) [I50.22]; Biventricular implantable cardioverter-defibr illator (ICD) in situ [Z95.810] Social History Tobacco Use Types Packs/Day Years Used Date Smoking Tobacco: Former Smokeless Tobacco: Never Sex and Gender Information Value Date Recorded Sex Assigned at Not on file Legal Sex Male 12:29 AM GLOBAL CTO Gender Identity Not on file Sexual Orientation Not on file documented as of this encounter Plan of Treatment Not on file documented as of this encounter Procedures Procedure Name Priority Date/Time Associated Diagnosis Comments DEVICE CHECK - REMOTE Routine 03/10/2023 4:32 PM CDT Ischemic cardiomyopathy documented in this encounter Results * DEVICE CHECK - REMOTE (03/10/2023 4:32 PM CDT) Anatomical Region Laterality Modality Other Narrative 04/17/2023 2:51 PM CDT Ji Jefferson BI-V ICD imp on 05/23/21 for ICM/CHF/PAF, [...] Office device f/u 06/10/2023. Sonia Tomas RN us Ceasar Rosas MD [facility] PRO CEDURES Final Result documented in this encounter Visit Diagnoses Diagnosis Atrial fibrillation, unspecified type (HCC) [I48.91]- Primary Ischemic cardiomyopathy Other specified forms of chronic ischemic heart disease S/P AV (atrioventricular) inocente ablation [Z98.890] Other postprocedural status Chronic HFrEF (heart failure with reduced ejection fraction) (CMS/HCC) (HCC) [I50.22] 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 [Z95.810] documented in this encounter Care Teams Teacher Preschool Relationship Specialty Start Date End Date Tao Jeffers MD [address] [place] [address] PCP - General 12/18/11 Victor M Barnes MD [address] [place] [address] Consulting Physician Cardiology 05/16/21 Zane Lopez MD [address] [place] [address] Consulting Physician Electrophysiology 05/16/21 Miscellaneous, Not In File 05/23/21 documented as of this encounter
--- OUTSIDE RECORDS SUMMARY | 2024-07-30 20:16 | XMS_ITS | Encounter Summary ---
Author Organization [facility] Address [address] [place] [address] Care Team Providers Care Medical Scientific Liaison Name Role Phone Tao Jeffers MD Primary Care Provider Victor M Barnes MD Unavailable Zane Lopez MD Unavailable Miscellaneous, Not In File Unavailable Unava ilable Encounter Details Date Type Department Care Team (Late st Contact Info) Description 06/18/2021 Telephone [facility] Cardiology [address] [place] [address] Victor M Barnes MD [address] [id number] Social History Tobacco Use Types Packs/Day Years Used Date Smoking Tobacco: Former Smokeless Tobacco: Never Sex and Gender Information Value Date Recorded Sex Assigned at Not on file Legal Sex Male 12:29 AM ADMINISTRATOR SOCIAL WELFARE Gender Identity Not on file Sexual Orientation Not on file documented as of this encounter Miscellaneous Notes * Telephone Encounter - Ykuo Burden RN - 06/18/2021 3:56 PM ADMINISTRATOR SOCIAL WELFARE Pt called to update me that his ankle is feeling better and theres still a little swelling still there. Pt said his deep cough is gone and he still has a little SOB when walking but it is better. Pt is scheduled to see EP next week for a device check. Scheduled pt for f/u with AD in the next coupleof months-pt will call with any further concerns. NISTRATOR SOCIAL WELFARE * Telephone Encounter - An Cristina MA - 06/18/2021 3:15 PM CST Pt called wanting to s/w Nurse Yuko, will not give any detail Cb:[phone] RICKY Mancia NISTRATOR SOCIAL WELFARE documented in this encounter Plan of Treatment Not on file documented as of this encounter Visit Diagnoses Not on filedocumented in this encounter Care Teams Medical Scientific Liaison Relationship Specialty Start Date End Date Tao Jeffers MD [address] [place], [place] [phone] PCP - General 12/18/11 Victor M Barnes MD [address] [place], [place] [phone] Consulting Physician Cardiology 05/16/21 Zane Lopez MD [address] [place], [place] [phone] Consulting Physician Electrophysiology 05/16/21 Miscellaneous, Not In File 05/23/21 documented as of this encounter
--- OUTSIDE RECORDS SUMMARY | 2024-07-30 20:16 | XMS_ITS | Encounter Summary ---
Author Organization [facility] Address [address] [place] [address] Care Team Providers Care Geek Squad Manager Name Role Phone Tao Jeffers MD Primary Care Provider Victor M Barnes MD Unavailable Zane Lopez MD Unavailable [phone] Miscellaneous, Not In File Unavailable Unava ilable Encounter Details Date Type Department Care Team (Late st Contact Info) Description 07/02/2021 Telephone [facility] Cardiology [address] [place] [address] Victor M Barnes MD [address] [id number] Social History Tobacco Use Types Packs/Day Years Used Date Smoking Tobacco: Former Smokeless Tobacco: Never Sex and Gender Information Value Date Recorded Sex Assigned at Not on file Legal Sex Male 12:[address]NICIAN Gender Identity Not on file Sexual Orientation Not on file documented as of this encounter Miscellaneous Notes * Telephone Encounter - Yuko Burden RN - 07/02/2021 4:[address]CHNICIAN Called pt and reviewed message from AD-he verbalized understanding and agreed to an appt with AD tomorrow afternoon. WAY TECHNICIAN * Telephone Encounter - Victor M Barnes MD - 07/02/2021 4:[address]CHNICIAN Well if possible and if he is okay with that I would like to see him sooner as well. I am glad he is feeling better and have been interested in getting an update as to how things were going. I agree with recommendations. Continue to monitor blood pressure, edema and symptoms and notify the office if he has any other concerns. WAY TECHNICIAN * Telephone Encounter - Yuko Burden RN - 07/02/2021 2:[address]NICIAN Pt called with an update for AD-when he went to see EP mid May they asked when he was seeing AD again and he said 09/05-EP recommended he be seen sooner but he couldnt remember why so he wanted to see what AD thought? Pt went to see his PCP shortly after that visit and was diagnosed with pneumonia and started on antibiotics for 10 days and furosemide 20mg daily for 30 days with no refills. Pt said he is feeling better-he has no SOB but his ankles are a little swollen still but they do go down at night. Pt weighshimself periodically and he hasnt gained any weight. Advised pt to weigh himself daily and to notify us if he is gaining any weight, to elevate his legs during the day and to reduce his sodium intake. Pt recent BP are: 110/65, 129/70, 144/82, 91/62, 127/73. Pt said he just wanted to update AD to see what he thought. Will forward to AD as FYI. Please advise if deem necessary, thank you! WAY TECHNICIAN * Telephone Encounter - Gage Blanco - 07/02/2021 1:04 PM CST Pt requesting a call from nurse Huntley.Thank you Contact:[phone] documented in this encounter Plan of Treatment Not on file documented as of this encounter Visit Diagnoses Not on filedocumented in this encounter Care Teams Geek Squad Manager Relationship Specialty Start Date End Date Tao Jeffers MD [address] [place], [place] [id number] PCP - General 12/18/11 Victor M Barnes MD [address] [place] [address] Consulting Physician Cardiology 05/16/21 Zane Lopez MD [address] [place], [place] [phone] Consulting Physician Electrophysiology 05/16/21 Miscellaneous, Not In File 05/23/21 documented as of this encounter
--- OUTSIDE RECORDS SUMMARY | 2024-07-30 20:16 | XMS_ITS | Encounter Summary ---
Author Organization [facility] Address [address] [place] [address] Care Team Providers Care Import Export Manager Name Role Phone Tao Jeffers MD Primary Care Provider [phone] Victor M Barnes MD Unavailable [phone] Zane Lopez MD Unavailable [phone] Miscellaneous, Not In File Unavailable Unava ilable Reason for Visit * Cardiology (Routine) - Closed Specialty Diagnoses / Procedures Referred By Contac t Referred To Contact Diagnoses Paroxysmal atrial fibrillation (CMS/HCC) (HCC) Procedures DEVICE CHECK - IN OFFICE Zane Lopez MD [address] [place] [address] Phone: tel: fax: [facility] Referral ID Status Reason Start Date Expiration Date Visits Re quested Visits Authorized [id number] Closed 05/29/2021 06/28/2022 1 1 Encounter Details Date Type Department Care Team (Latest Contact Info) Description 06/28/2021 9:15 AM LAMINATING MACHINE FEEDER Ancillary Procedure [facility] [address] [place] [id number] Paroxysmal atrial fibrillation (CMS/HCC) (HCC); Automatic implantable cardiac defibrillator in situ Social History Tobacco Use Types Packs/Day Years Used Date Smoking Tobacco: Former Smokeless Tobacco: Never Sex and Gender Information Value Date Recorded Sex Assigned at Not on file Legal Sex Male 12:29 AM LAMINATING MACHINE FEEDER Gender Identity Not on file Sexual Orientation Not on file documented as of this encounter Plan of Treatment Not on file documented as of this encounter Procedures Procedure Name Priority Date/Time Associated Diagnosis Comments DEVICE CHECK - IN OFFICE Routine 06/28/2021 8:42 AM LAMINATING MACHINE FEEDER Paroxysmal atrial fibrillation (CMS/HCC) (HCC) documented in this encounter Results * DEVICE CHECK - IN OFFICE (06/28/2021 8:42 AM LAMINATING MACHINE FEEDER) Anatomical Region Laterality Modality Other Narrative 06/28/2021 3:08 PM LAMINATING MACHINE FEEDER This patient received a Ji BiV ICD. ??They had a routine in office transmission on 06/28/2021 Device implant indications: ??Ischemic cardiomyopathy ?? Interrogation of the patient's device demonstrates the following: Presenting EGM: ??Bi V paced @ 7 0 bpm Lead Measurements Right Ventricle Left Ventricle Sensitivity (mV) Paced mV Not done mV Impedence (Ohms) 360 ohms 290 ohms Pace Threshold 0.5 V @ 0.5 ms 0.75 V @ 0.5 ms Pacing % 100 % 100 % HV Lead Impedance 36 ohms N/A Battery Status: ??7.0 years to JIAN charge time 9.0 seconds Episodes last 90 days/Comments: There were no treated ventricular arrhythmias noted on today's in office device interrogation. NORMAL DEVICE FUNCTION PROGRAMMED Anti-coagulant(s): ??Eliquis 5 mg twice daily, aspirin [...] and I told him to contact his forensic analyst and get a appointment next week. Jose Hutchinson R.N. us Zane Lopez MD [facility] PROCEDU RES Final Result documented in this encounter Visit Diagnoses Diagnosis Paroxysmal atrial fibrillation (CMS/HCC) (HCC) Atrial fibrillation Automatic implantable cardiac defibrillator in situ documented in this encounter Care Teams Import Export Manager Relationship Specialty Start Date End Date Tao Jeffers MD [address] [place], [place] [address] PCP - General 12/18/11 Victor M Branes MD [address] [place], [place] [id number] Consulting Physician Cardiology 05/16/21 Zane Lopez MD [address] [place], [place] [address] Consulting Physician Electrophysiology 05/16/21 Miscellaneous, Not In File 05/23/21 documented as of this encounter
--- OUTSIDE RECORDS SUMMARY | 2024-07-30 20:16 | XMS_ITS | Encounter Summary ---
Author Organization [facility] Address [address] [facility] [address] [place] [address] Care Team Providers Care Teachers' Aide Name Role Phone Tao Jeffers MD Primary Care Provider [phone] Victor M Barnes MD Unavailable [phone] Zane Lopez MD Unavailable [phone] Miscellaneous, Not In File Unavailable Unava ilable Reason for Referral * Consultation (Routine) - Closed Specialty Diagnoses / Procedures Referred By Contac t Referred To Contact Cardiology Diagnoses Coronary artery disease involving sauk-suiattle coronary artery of sa[place]-su[place]attle heart without angina pectoris Chronic HFrEF (heart failure with reduced ejection fraction) (CMS/HCC) (HCC) Ischemic cardiomyopathy Paroxysmal atrial fibrillation (CMS/HCC) (HCC) S/P AV (atrioventricular) inocente ablation S/P coronary artery stent placement 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 Victor M Barnes MD [address] [place] [address] Phone: tel: fax: Harsh Cao MD [address] [address] Phone: tel: fax: Referral ID Status Reason Start Date Expiration Date V isits Requested Visits Authorized [id number] Closed Specialty Services Required 02/11/2023 03/12/2024 1 1 Question Answer Please select the performing region: [facility] [[id number]] Please select the performing department: [facility] [[id number]] To provider: HARSH CAO [[id number]] # of visits: 1 Comments BiV ICD, AV inocente ablation , PAF, CAD, ICM Reason for Visit * Reason Comments Follow-up 4 mo f/u Atrial Fibrillation Cardiomyopathy Hypertension Encounter Details Date Type Department Care Team (Late st Contact Info) Description 02/11/2023 9:15 AM CDT Office Visit [facility] Cardiology [address] [place] [id number] Victor M Barnes MD [address] [facility] [address] [place] [address] Coronary artery disease involving sauk-suiattle coronary artery of sauk-suiattle heart without angina pectoris (Primary Dx); Chronic HFrEF (heart failure with reduced ejection fraction) (CMS/HCC) (HCC); Ischemic cardiomyopathy; Paroxysmal atrial fibrillation (CMS/HCC) (HCC); Mixed dyslipidemia; HTN (hypertension), benign; S/P AV (atrioventricular) inocente ablation; S/P coronary artery stent placement; Chronic anticoagulation; Biventricular implantable cardioverter-defibril lator (ICD) in situ Social History Tobacco Use Types Packs/Day Years Used Date Smoking Tobacco: Former Smokeless Tobacco: Never Sex and Gender Information Value Date Recorded Sex Assigned at Not on file 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 Gender Identity Not on file Sexual Orientation Not on file documented as of this encounter Last Filed Vital Signs Vital Sign Reading Time Taken Comments Blood Pressure 120/70 02/11/2023 9:34 AM CDT Pulse 70 02/11/2023 9:34 AM CDT Temperature - - Respiratory Rate - - Oxygen Saturation 96% 02/11/2023 9:34 AM CDT Inhaled Oxygen Concentration - - Weight 83.2 kg (183 lb 6.4 oz) 02/11/2023 9:34 A M CDT Height 180.3 cm (5' 11 ) 02/11/2023 9:34 AM CDT Body Mass Index 25.58 02/11/2023 9:34 AM CDT documented in this encounter Progress Notes * Victor M Barnes MD - 02/11/2023 9:15 AM CDT Images from the original note were not included. DATE OF VISIT: 02/11/2023 CHIEF COMPLAINT Chief Complaint Patient presents with ??? Follow-up 4 mo f/u ??? Atrial Fibrillation ??? Cardiomyopathy ??? Hypertension ASSESSMENT Diagnoses and all orders for this visit: Coronary artery disease involving sauk-suiattle coronary artery of sa[place]su[place]attle heart without angina pectoris (Primary) - Ambulatory referral to Cardiac Electrophysiology; Future Chronic HFrEF (heart failure with reduced ejection fraction) (CMS/HCC) ([facility]) - Ambulatory referral to Cardiac Electrophysiology; Future Ischemic cardiomyopathy - Ambulatory referral to Cardiac Electrophysiology; Future Paroxysmal atrial fibrillation ([facility]) ([facility]) - Ambulatory referral to Cardiac Electrophysiology; Future Mixed dyslipidemia HTN (hypertension), benign S/P AV (atrioventricular) inocente ablation - Ambulatory referral to Cardiac Electrophysiology; Future S/P coronary artery stent placement - Ambulatory referral to Cardiac Electrophysiology; Future Chronic anticoagulation 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 - Ambulatory referral to Cardiac Electrophysiology; Future PLAN/RECOMMENDATIONS Stable, persistent A. Fib status post [...] mg twice daily. He did not tolerate 97/1 3 mg twice daily. Lipids personally reviewed 04/03/22 LDL 54, well [...] but not robust. -EF 35% by Echo, [facility]. -EF 45% by Echo 09/2021, improved. - Continue Lasix 20 mg daily. Continue routine ICD interrogations as scheduled. Follow-up with electrophysiology as scheduled. -Did not tolerate 97/103mg BID due to dizziness, tolerating Entresto 49/51mg BID. 6. Routine biventricular ICD interrogations. Will refer to Dr. 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 Discussed his options at length. He wishes to follow up with our practice and have his ICD checks transferred to our office. Over 50% of this visit counseling BiV PPM, A.Fib, CHF, CAD, HTN, lipids, medications, lifestyle modification. Follow up in the office in 6 months or sooner as needed. Thank you for allowing me the privilege of participating in the care this very pleasant patient. Please do not hesitate to contact me with any additional questions or concerns. EUN Jimenez is a 82 y.o. male with a PMHx of coronary artery disease s/p PCI in 1999, HTN, colon cancer in 2003, cataracts, BPH, pneumonia a few years ago which required hospitalization and appendectomy. He presented to [facility] on 01/01/2021 under the advice of his PCP for complaintof progressively worsening fatigue and exertional dyspnea and an elevated heart rate in the 150s. He was found to be in AFib with RVR, troponins negative, proBNP 2680, chest x-ray small right pleuraleffusion. Echocardiogram showed moderately reduced [...] loaded on amiodarone. 01/18/21 Hospital follow-up with [facility] - Lm Jimenez comes to the office [...] well but nothing new.No palps or CP. MEDICAL HISTORY Past Medical History: Diagnosis Date [...] extended release capsule ALLERGIES Allergies Allergen Reactions ??? Codeine Swelling ??? Sulfa Swelling ??? Wheat Itching Takes Zyrtec for [...] and are negative. PHYSICAL EXAM Vitals BP 120/70 (BP Location: Left arm, Patient Position: Sitting) Pulse 70 Ht 180.3 cm (5' 11 ) Wt 83.2 kg (183 lb 6.4 oz) SpO2 96% BMI 25.58 kg/m?? Weight: 83.2 kg (183 lb 6.4 oz) Height: 180.3 cm (5' 11 ) Body mass index is 25.58 kg/m??. Physical Exam Vitals reviewed. Constitutional: General: [...] and I told him to contact his internet network specialist and get a appointment next week. 08/30/21 Interpretation Summary This patient received a Ohara BiV ICD. They had a routine [employer] remote transmission on 08/26/2021. Device implant indications: [...] Ohara BiV ICD. They had a routine Carbonite remote transmission on 11/25/21. Device implant indications: [...] appropriate for device settings Ayla Colon RN I have personally reviewed EKG, electronic medical record, and bloodwork/lipids. Сергей Barnes MD, [facility] This note is dictated and transcribed using [employer] Direct Software. Zigzag Elastic Attacher variancesmay occur. Despite proofreading, typographical errors may occur. documented in this encounter Plan of Treatment Scheduled Referrals Name Type Priority Associated Diagnoses Order Schedule Ambulatory referral to Cardiac Electrophysiology Outpatient Referral Routine Coronary artery disease involving sauk-suiattle coronary artery of sauk-suiattle heart without angina pectoris Chronic HFrEF (heart failure with reduced ejection fraction) (CMS/HCC) (HCC) Ischemic cardiomyopathy Paroxysmal atrial fibrillation (CMS/HCC) ([facility]) S/P AV (atrioventricular) inocente ablation S/P coronary artery stent placement Biventricular implantable cardioverter-defibr illator (ICD) in situ Expected: 02/25/2023 (Approximate), Expires: 02/12/2024 documented as of this encounter Visit Diagnoses Diagnosis Coronary artery disease involving sa[place]-suiattle coronary artery of sa[place]-suiattle heart without angina pectoris- Primary Chronic HFrEF (heart failure with reduced ejection fraction) (CMS/HCC) (HCC) Ischemic cardiomyopathy Other specified forms of chronic ischemic heart disease Paroxysmal atrial fibrillation (CMS/HCC) (HCC) Atrial fibrillation Mixed dyslipidemia HTN (hypertension), benign Essential hypertension, benign S/P AV (atrioventricular) inocente ablation Other postprocedural status S/P coronary artery stent placement Postsurgical percutaneous transluminal coronary angioplasty status Chronic anticoagulation Encounter for long-term (current) use of anticoagulants 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 documented in this encounter Care Teams Teachers' Aide Relationship Specialty Start Date End Date Tao Jeffers MD [address] [place] [address] PCP - General 12/18/11 Victor M Barnes MD [address] [place] [address] Consulting Physician Cardiology 05/16/21 Zane Lopez MD [address] [place], [place] [id number] Consulting Physician Electrophysiology 05/16/21 Miscellaneous, Not In File 05/23/21 documented as of this encounter
--- OUTSIDE RECORDS SUMMARY | 2024-07-30 20:16 | XMS_ITS | Encounter Summary ---
Author Organization [facility] Address [address] [facility] [address] [place] [address] Care Team Providers Care Orthotics Prosthetics Assistant Name Role Phone Tao Jeffers MD Primary Care Provider [phone] Victor M Barnes MD Unavailable [phone] Zane Lopez MD Unavailable [phone] Miscellaneous, Not In File Unavailable Unava ilable Reason for Visit * Cardiology (Routine) - Closed Specialty Diagnoses / Procedures Referred By Contac t Referred To Contact Diagnoses Ischemic cardiomyopathy Procedures DEVICE CHECK - REMOTE Zane Lopez MD [address] [place] [address] Phone: tel: fax: [facility] Referral ID Status Reason Start Date Expiration Date Visits Re quested Visits Authorized [id number] Closed 05/24/2021 06/23/2022 1 1 Encounter Details Date Type Department Care Team (Latest Contact Info) Description 11/25/2021 12:30 PM CDT Ancillary Procedure [facility] [address] [facility] [address] [address] Ischemic cardiomyopathy; Biventricular implantable cardioverter-defibr illator (ICD) in situ Social History Tobacco Use Types Packs/Day Years Used Date Smoking Tobacco: Former Smokeless Tobacco: Never Sex and Gender Information Value Date Recorded Sex Assigned at Not on file 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 ??They had a routine Ji remote transmission on 11/25/21. Device implant indications: ??Ischemic cardiomyopathy, congestive heart failure, paroxysmal atrial fibrillation, status post AV node ablation ?? Interrogation [...] Lead Impedance 43 ohms N/A Battery Status: ??6.8-7.4 years to JIAN, charge time 9.0 seconds. [...] situ documented in this encounter Care Teams Orthotics Prosthetics Assistant Relationship Specialty Start Date End Date Tao Jeffers MD [address] [place] [address] PCP - General 12/18/11 Victor M Barnes MD [address] [place] [address] Consulting Physician Cardiology 05/16/21 Zane Lopez MD [address] [place] [address] Consulting Physician Electrophysiology 05/16/21 Miscellaneous, Not In File 05/23/21 documented as of this encounter
--- OUTSIDE RECORDS SUMMARY | 2024-07-30 20:16 | XMS_ITS | Encounter Summary ---
Author Organization [facility] Address [address] [facility] [place] [address] Care Team Providers Care Commodity Trader Name Role Phone Tao Jeffers MD Primary Care Provider [phone] Victor M Barnes MD Unavailable Zane Lopez MD Unavailable Miscellaneous, Not In File Unavailable Unava ilable Encounter Details Date Type Department Care Team (Late st Contact Info) Description 12/08/2022 Telephone [facility] Cardiology [address] [place] [address] Victor M Barnes MD [address] [id number] Social History Tobacco Use Types Packs/Day Years Used Date Smoking Tobacco: Former Smokeless Tobacco: Never Sex and Gender Information Value Date Recorded Sex Assigned at Not on file 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 Sent new Rx to pharm. Pt said he checked his BP a few more times last night 106/68, 102/70. Pt will cont to monitor. * Telephone Encounter - Victor M Barnes MD - 12/08/2022 3:56 PM CDT He can reduce it back down to his prior dose I am not certain this is why he is feeling that way but certainly plausible so we will observe if these symptoms resolve. Monitor BP closely as blood pressure will only go up with reduction in the Entresto. * Telephone Encounter - Yuko Burden RN - 12/08/2022 12:34 PM CDT Spoke with pt, he said he has been taking the increased dose of entresto now for a few weeks. The first week he felt fine but over the last 3-4 days he has felt lowsy-lightheaded and tired-a significant difference for him. Pt has not been checking his BP at home but he did check it today and it gfh174/83. Pt said he can start checking it going forward. Pt wants to know if he can/should reduce his dose the the previous dose he was on when he was feeling good? Pt also stated he went and got his labwork done today that AD requested. Will forward to AD. Please advise, thank you! * Telephone Encounter - Shamika Park - 12/08/2022 9:58 AM CDT Pt calling in to report that he is not feeling any better after AD increased his Entresto. He states that he is having side effects such as lightheadedness, no energy, and feeling fatigue. Requestingcall back to discuss with Yuko. Contact [phone] documented in this encounter Plan of Treatment Not on file documented as of this encounter Visit Diagnoses Not on filedocumented in this encounter Discontinued Medications Medication Sig Discontinue Reason Start Date End Da te sacubitriL-valsartan (ENTRESTO) 97-103 mg tabletIndications:chroni c heart failure Take 1 tablet by mouth 2 (two) times a day 10/06/2022 12/09/2022 documented as of this encounter Care Teams Commodity Trader Relationship Specialty Start Date End Date Tao Jeffers MD [address] [place], [place] [address] PCP - General 12/18/11 Victor M Barnes MD [address] [place], [place] [address] Consulting Physician Cardiology 05/16/21 Zane Lopez MD [address] [place], [place] [id number] Consulting Physician Electrophysiology 05/16/21 Miscellaneous, Not In File 05/23/21 documented as of this encounter
--- OUTSIDE RECORDS SUMMARY | 2024-07-30 20:16 | XMS_ITS | Encounter Summary ---
Author Organization [facility] Address [address] [facility] [address] [place] [address] Care Team Providers Care Shirt Line Operator Name Role Phone Tao Jeffers MD Primary Care Provider Victor M Barnes MD Unavailable [phone] Zane Lopez MD Unavailable [phone] Miscellaneous, Not In File Unavailable Unava ilable Encounter Details Date Type Department Care Team (Late st Contact Info) Description 08/20/2021 Telephone [facility] Cardiology [address] [place] [address] Victor M Barnes MD [address] [id number] Social History Tobacco Use Types Packs/Day Years Used Date Smoking Tobacco: Former Smokeless Tobacco: Never Sex and Gender Information Value Date Recorded Sex Assigned at Not on file Legal Sex Male 12:29 AM PROPERTY CLAIM REP Gender Identity Not on file Sexual Orientation Not on file documented as of this encounter Miscellaneous Notes * Telephone Encounter - Ayla Ballesteros MA - 08/22/2021 4:05 PM CST Med was refilled yesterday ERTY CLAIM REP * Telephone Encounter - Victor M Barnes MD - 08/21/2021 5:14 PM PROPERTY CLAIM REP That is fine. We will discuss changing to clopidogrel as alternative to Brilinta at next visit. Continue current medications for now and close observation for any bleeding concerns. ERTY CLAIM REP * Telephone Encounter - Ayla Ballesteros MA - 08/20/2021 3:[address] Barnes, Your OV note from last month states pt is taking Brilinta but you have not prescribed it previouslyfor pt. Is it okay to send it in under your name? Thank you. ERTY CLAIM REP * Telephone Encounter - Lena John - 08/20/2021 3:20 PM CST Pt requesting refill for Brilinta 90 mg. Contact: ERTY CLAIM REP documented in this encounter Plan of Treatment Not on file documented as of this encounter Visit Diagnoses Not on filedocumented in this encounter Care Teams Shirt Line Operator Relationship Specialty Start Date End Date Tao Jeffers MD [address] [place] [address] PCP - General 12/18/11 Victor M Barnes MD [address] [place], [place] [address] Consulting Physician Cardiology 05/16/21 Zane Lopez MD [address] [place], [place] [address] Consulting Physician Electrophysiology 05/16/21 Miscellaneous, Not In File 05/23/21 documented as of this encounter
--- OUTSIDE RECORDS SUMMARY | 2024-07-30 20:16 | XMS_ITS | Encounter Summary ---
Author Organization [facility] Address [address] [facility] [address] [place] [address] Care Team Providers Care Gunner'S Mate G Name Role Phone Tao Jeffers MD Primary Care Provider [phone] Victor M Barnes MD Unavailable [phone] Zane Lopez MD Unavailable Miscellaneous, Not In File Unavailable Unava ilable Encounter Details Date Type Department Care Team (Late st Contact Info) Description 04/03/2022 Telephone [facility] Cardiology [address] [place] [address] Victor M Barnes MD [address] [id number] Social History Tobacco Use Types Packs/Day Years Used Date Smoking Tobacco: Former Smokeless Tobacco: Never Sex and Gender Information Value Date Recorded Sex Assigned at Not on file Legal Sex Male 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 POLICE AIDE Gender Identity Not on file Sexual Orientation Not on file documented as of this encounter Ordered Prescriptions Prescription Sig Dispense Quantity Refills Last Filled Start Date End Date empagliflozin (JARDIANCE) 10 mg tablet Take 1 tablet (10 mg total) by mouth daily 30 tablet 04/04/2022 04/04/2022 losartan (COZAAR) 50 mg tablet Take 1 tablet (50 mg total) by mouth daily 30 tablet 04/04/2022 04/04/2022 documented in this encounter Miscellaneous Notes * Telephone Encounter - Reyes Burden RN - 04/09/2022 1:29 PM CDT Spoke with pt and he originally had an issue with [facility] but it has since been resolved so he doesn't need any further assistance. * Telephone Encounter - Gage Brown - 04/09/2022 10:24 AM CDT Pt requesting a call from nurse Huntley in regard to below.Thank you contact:[phone] * Addendum Note - Reyes Burden RN - 04/04/2022 11:13 AM CDTAddended by: REYES BURDEN on: 04/04/2022 11:13 AM Modules accepted: Orders * Telephone Encounter - Reyes Burden RN - 04/04/2022 11:09 AM CDT Pt called back and he has changed his mind about paying for the entresto-he would prefer to take itand does not want to take the jardiance or spironolactone. Offered the pt samples while he is in the donut hole-he was very appreciative. Pt wanted me to make AD aware of his decision. Forwarding message to AD as DANY. * Telephone Encounter - Gage Brown - 04/04/2022 10:35 AM CDT Pt requesting a call from ANTHONY Huntley.Thank you Contact:[phone] * Telephone Encounter - Reyes Burden RN - 04/04/2022 8:37 AM CDT Spoke with pt, reviewed message from AD-pt verbalized understanding. Sending new Rx to pharm and ptwill check on pricing for jardiance and if too expensive will callback for alternative. * Telephone Encounter - Victor M Barnes MD - 04/03/2022 2:56 PM CDT As much as I would prefer to transition him to Entresto I understand issue with cost. In that case I would increase his losartan to 50 mg daily in the interval. If we could unger out Jardiance 10 mg daily although I imagine that would be expensive we should at least try. If we are unable to obtain Jardiance I would initiate spironolactone 25 mg daily (this is relatively inexpensive) to optimize medical therapy as we are able that would be advised. Obtain basic metabolic panel in 2-4 weeks. * Telephone Encounter - Reyes Burden RN - 04/03/2022 1:29 PM CDT Spoke with pt, he called to update AD-Pt has 2 weeks left of brilinta. He called the pharmacy and the cost of entresto is going to be $174/month because he is in the donut hole right now. Pt doesn't want to pay that and would prefer to stay on losartan for now-he is asking if he should stay on the say dose of losartan or increase? Pt also noted he will be starting aspirin 81mg after his brilinta i s done. Will forward to AD. Please advise, thank you! * Telephone Encounter - Gage Brown - 04/03/2022 11:22 AM CDT Pt was seen in office today. Requesting a call from nurse Huntley.Thank you Contact:[phone] documented in this encounter Plan of Treatment Not on file documented as of this encounter Visit Diagnoses Not on filedocumented in this encounter Discontinued Medications Medication Sig Discontinue Reason Start Date End Da te losartan (COZAAR) 50 mg tablet Take 1 tablet (50 mg total) by mouth daily 04/04/2022 04/04/2022 empagliflozin (JARDIANCE) 10 mg tablet Take 1 tablet (10 mg total) by mouth daily 04/04/2022 04/04/2022 documented as of this encounter Care Teams Gunner'S Mate G Relationship Specialty Start Date End Date Tao Jeffers MD [address] [place], [place] [id number] PCP - General 12/18/11 Victor M Barnes MD [address] [place], [place] [address] Consulting Physician Cardiology 05/16/21 Zane Lopez MD [address] [place], [place] [id number] Consulting Physician Electrophysiology 05/16/21 Miscellaneous, Not In File 05/23/21 documented as of this encounter
--- OUTSIDE RECORDS SUMMARY | 2024-07-30 20:16 | XMS_ITS ---
Encounter Summary Created on: July 30, 2024 mL Jimenez : 1940 Sex: Male Author Organization [facility] Address [address] [place] [address] Care Team Providers Care Advertising Assistant Name Role Phone Tao Jeffers MD Primary Care Provider [phone] Victor M Barnes MD Unavailable [phone] Zane Lopez MD Unavailable [phone] Miscellaneous, Not In File Unavailable Unava ilable Reason for Visit * Cardiology (Routine) - Closed Specialty Diagnoses / Procedures Referred By Contac t Referred To Contact Diagnoses Ischemic cardiomyopathy Procedures DEVICE CHECK - REMOTE Zane Lopez MD [address] [place] [address] Phone: tel: fax: [facility] Referral ID Status Reason Start Date Expiration Date Visits Re quested Visits Authorized [id number] Closed 05/24/2021 06/23/2022 1 1 Encounter Details Date Type Department Care Team (Latest Contact Info) Description 06/09/2022 12:00 PM EMERGENCY DEPARTMENT TECHNICIAN Ancillary Procedure [facility] [address] [id number] Ischemic cardiomyopathy; Biventricular implantable cardioverter-defibr illator (ICD) in situ Social History Tobacco Use Types Packs/Day Years Used Date Smoking Tobacco: Former Smokeless Tobacco: Never Sex and Gender Information Value Date Recorded Sex Assigned at Not on file Legal Sex Male 12:29 AM EMERGENCY DEPARTMENT TECHNICIAN Gender Identity Not on file Sexual Orientation Not on file documented as of this encounter Plan of Treatment Not on file documented as of this encounter Procedures Procedure Name Priority Date/Time Associated Diagnosis Comments DEVICE CHECK - REMOTE Routine 06/09/2022 11:12 AM EMERGENCY DEPARTMENT TECHNICIAN Ischemic cardiomyopathy documented in this encounter Results * DEVICE CHECK - REMOTE (06/09/2022 11:12 AM EMERGENCY DEPARTMENT TECHNICIAN) Anatomical Region Laterality Modality Other Narrative 06/12/2022 12:25 PM EMERGENCY DEPARTMENT TECHNICIAN Table formatting from the original result was not included. BiV ICD CHECK (REMOTE) Patient ID: Lm Jimenez is a 81 y.o. male. This patient received a Ji BiV ICD. ??They had a routine remote transmission on 06/09/2022 Device implant indications: ??Ischemic cardiomyopathy, status post AV node ablation ?? Interrogation of the patient's device demonstrates the following: Presenting EGM: ??Bi V paced @ 7 0 bpm Original Device Settings Right Ventricle Left Ventricle Sensitivity (mV) Auto mV N/A mV Pacing Outputs 1.5 V @ 0.5 ms 1.625 V @ 0.5 ms LV 2 lead is set at 1.5 volts at 0.5 millisecond Testing Measurements Right Ventricle Left Ventricle Sensitivity (mV) 8.9 mV Not done mV Impedence (Ohms) 410 ohms 460 ohms Pace Threshold 0.5 V @ 0.5 ms 1.125 V @ 0.5 ms Pacing % 100 % 100 % HV Lead Impedance 45 ohms N/A LV 2 lead pacing threshold is 1.0 volts at 0.5 millisecond, impedance is not measured. Battery Status: ??6.6 years to JIAN, charge time 8.8 seconds. Episodes last 90 days/Comments: There were no ventricular high rate episodes noted on today's remote interrogation. NORMAL DEVICE FUNCTION PROGRAMMED MEDICATIONS: Anti-coagulant(s): ??Eliquis 5 mg twice daily, aspirin 81 mg daily Anti-arrhythmic(s): ??Toprol-XL 50 mg daily PLAN: 1) normal Ji BiV ICD evaluation 2) Ji remote transmission scheduled in 3 months. 3) Programming appropriate for device settings Jose Hutchinson, RN Zane Lopez MD [facility] PROCEDU RES Final Result documented in this encounter Visit Diagnoses Diagnosis Ischemic cardiomyopathy Other specified forms of chronic ischemic heart disease 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 documented in this encounter Care Teams Advertising Assistant Relationship Specialty Start Date End Date Tao Jeffers MD [address] [place] [address] PCP - General 12/18/11 Victor M Barnes MD [address] [place] [address] Consulting Physician Cardiology 05/16/21 Zane Lopez MD [address] [place] [address] Consulting Physician Electrophysiology 05/16/21 Miscellaneous, Not In File 05/23/21 documented as of this encounter
--- OUTSIDE RECORDS SUMMARY | 2024-07-30 20:16 | XMS_ITS | Encounter Summary ---
Author Organization [facility] Address [address] [place] [address] Care Team Providers Care Lumber Loader Name Role Phone Tao Jeffers MD Primary Care Provider [phone] Victor M Barnes MD Unavailable [phone] Zane Lopez MD Unavailable [phone] Miscellaneous, Not In File Unavailable Unava ilable Reason for Visit * Reason Comments Follow-up Discuss holding bloo d thinners to go to dentist. Coronary Artery Disease Atrial Fibrillation Encounter Details Date Type Department Care Team (Latest Contact Info) Description 04/03/2022 8:30 AM CDT Office Visit [facility] Medical [facility] Cardiology [address] [place] [address] Victor M Barnes MD [address] [place] [address] Coronary artery disease involving chitina coronary artery of chitina heart without angina pectoris (Primary Dx); Chronic HFrEF (heart failure with reduced ejection fraction) (CMS/HCC) ([facility]); HTN (hypertension), benign; CAMACHO (dyspnea on exertion); Paroxysmal atrial fibrillation (CMS/HCC) ([facility]); Mixed dyslipidemia; S/P AV (atrioventricular) inocente ablation; S/P coronary artery stent placement; Biventricular implantable cardioverter-defibrillat or (ICD) in situ; Ischemic cardiomyopathy; Chronic anticoagulation Social History Tobacco Use Types Packs/Day Years Used Date Smoking Tobacco: Former Smokeless Tobacco: Never Tobacco Cessation:Counseling Given: Not Answered Sex and Gender Information Value Date Recorded Sex Assigned at Not on file 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 Gender Identity Not on file Sexual Orientation Not on file documented as of this encounter Last Filed Vital Signs Vital Sign Reading Time Taken Comments Blood Pressure 120/78 04/03/2022 8:24 AM CDT Pulse 70 04/03/2022 8:24 AM CDT Temperature - - Respiratory Rate - - Oxygen Saturation 97% 04/03/2022 8:24 AM CDT Inhaled Oxygen Concentration - - Weight 81.6 kg (179 lb 12.8 oz) 04/03/2022 8:24 AM CDT Height 180.3 cm (5' 11 ) 04/03/2022 8:24 AM CDT Body Mass Index 25.08 04/03/2022 8:24 AM CDT documented in this encounter Ordered Prescriptions Prescription Sig Dispense Quantity Refills Last Filled Start Date End Date aspirin (Adult Low Dose Aspirin) 81 mg enteric coated tablet Take 1 tablet (81 mg total) by mouth daily 04/03/2022 sacubitriL-valsart an (ENTRESTO) 49-51 mg tabletIndications: chronic heart failure Take 1 tablet by mouth 2 (two) times a day 60 tablet 11 04/03/2022 07/15/2022 documented in this encounter Progress Notes * Victor M Barnes MD - 04/03/2022 8:30 AM CDT Images from the original note were not included. DATE OF VISIT: 04/03/2022 CHIEF COMPLAINT Chief Complaint Patient presents with ??? Follow-up Discuss holding blood thinners to go to dentist. ??? Coronary Artery Disease ??? Atrial Fibrillation ASSESSMENT Diagnoses and all orders for this visit: Coronary artery disease involving chitina coronary artery of chitina heart without angina pectoris (Primary) Chronic HFrEF (heart failure with reduced ejection fraction) (CMS/HCC) ([facility]) - Basic metabolic panel; Future HTN (hypertension), benign CAMACHO (dyspnea on exertion) Paroxysmal atrial fibrillation (CMS/HCC) ([facility]) Mixed dyslipidemia S/P AV (atrioventricular) inocente ablation S/P coronary artery stent placement 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 Ischemic cardiomyopathy Chronic anticoagulation Other orders - aspirin (Adult Low Dose Aspirin) 81 mg enteric coated tablet; Take 1 tablet (81 mg total) by mouth daily - sacubitriL-valsartan (ENTRESTO) 49-51 mg tablet; Take 1 tablet by mouth [...] weight loss, medication compliance, and low-sodium diet. -cough with Lisinopril. Will begin Entresto with discontinuation of losartan. Lipids personally reviewed 04/03/22 LDL 54, well [...] but not robust. -EF 35% by Echo, [facility]. -EF 45% by Echo 09/2021, improved. - Continue Lasix 20 mg daily. Continue routine ICD interrogations as scheduled. Follow-up with electrophysiology as scheduled. -discussed optimization of GDMT at length. Explained rationale, risks and benefits with discontinuation of losartan in favor of Entresto. Patient verbalized understanding and agrees. Will begin Entresto 49/51 mg twice daily. BMP in 1 month. Monitor blood pressure closely, ambulate with caution. Discussed additional therapy such as spironolactone as well as Jardiance. Will need to do so cautiouslyto observe tolerance, monitor renal function. Cost also remains an issue. He will notify the officeif he has any difficulty obtaining medical therapy as advised. -will discuss repeat 2D echocardiogram to assess for LV size/systolic and diastolic function, valvepathology, pulmonary pressures, and chamber size but would prefer to optimize medical therapy. Recommendations to follow. Over 50% of this visit counseling BiV PPM, A.Fib, CAD, HTN, lipids, medications, lifestyle modification. Follow up in the office in 2 months or sooner as needed. Thank you for allowing me the privilege of participating in the care this very pleasant patient. Please do not hesitate to contact me with any additional questions or concerns. HPI Lm Jimenez is a 81 y.o. male with a PMHx of coronary artery disease s/p PCI in 1999, HTN, colon cancer in 2003, cataracts, BPH, pneumonia a few years ago which required hospitalization and appendectomy. He presented to [facility] on 01/[facility]2021 under the advice of his [...] loaded on amiodarone. 01/18/21 Hospital follow-up with SCAN COORDINATOR - Lm Jimenez comes to the office [...] study some nights he can sleep well. MEDICAL HISTORY Past Medical History: Diagnosis Date [...] mg tablet atorvastatin (LIPITOR) 80 mg tablet cetirizine (ZyrTEC) 10 mg tablet furosemide (LASIX) 20 mg tablet metoprolol XL (TOPROL-XL) 50 mg extended release tablet tamsulosin (FLOMAX) 0.4 mg extended release capsule Brilinta 90 mg tablet losartan (COZAAR) 25 mg tablet aspirin (Adult Low Dose Aspirin) 81 mg enteric coated tablet sacubitriL-valsartan (ENTRESTO) 49-51 mg tablet ALLERGIES Allergies Allergen Reactions ??? [...] and are negative. PHYSICAL EXAM Vitals BP 120/78 (BP Location: Left arm, Patient Position: Sitting) Pulse 70 Ht 180.3 cm (5' 11 ) Wt 81.6 kg (179 lb 12.8 oz) SpO2 97% BMI 25.08 kg/m?? Weight: 81.6 kg (179 lb 12.8 oz) Height: 180.3 cm (5' 11 ) Body mass index is 25.08 kg/m??. Physical Exam Vitals reviewed. 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 08/30/21 [...] Ji remote transmission scheduled in 3 months. I have personally reviewed EKG, electronic medical record, and bloodwork/lipids. Сергей Barnes MD, [facility] This note is dictated and transcribed using [employer] Software. Fence Post Cutter variancesmay occur. Despite proofreading, typographical errors may occur. documented in this encounter Miscellaneous Notes * Addendum Note - Rebecca Ballesteros MA - 04/03/2022 8:30 AM CDTAddended by: REBECCA BALLESTEROS on: 04/03/2022 03:21 PM Modules accepted: Orders documented in this encounter Plan of Treatment Not on file documented as of this encounter Procedures Procedure Name Priority Date/Time Associated Diagnosis Comments POCT LIPID PANEL Routine 04/03/2022 3:20 PM CDT Mixed dyslipidemia documented in this encounter Results * POCT lipid panel (04/03/2022 3:20 PM CDT) Cholesterol, POC <100 mg/dL Comment:GLU = 113 HDL, POC 37 mg/dL Triglycerides, POC <45 mg/dL LDL Cholesterol POC 54 mg/dL Chol/HDL Ratio, POC N/A Non-HDL Cholesterol, POC N/A mg/dL Cholesterol Total, POC <100 mg/dL Capillary blood 04/03/2022 3 :20 PM CDT Victor M Barnes MD POINT OF CARE TEST ORDER TERESO Final Result documented in this encounter Visit Diagnoses Diagnosis Coronary artery disease involving chitina coronary artery of chitina heart without angina pectoris- Primary Chronic HFrEF (heart failure with reduced ejection fraction) (CMS/[facility]) ([facility]) HTN (hypertension), benign Essential hypertension, benign CAMACHO (dyspnea on exertion) Other dyspnea and respiratory abnormality Paroxysmal atrial fibrillation (CMS/[facility]) ([facility]) Atrial fibrillation Mixed dyslipidemia S/P AV (atrioventricular) inocente ablation Other postprocedural status S/P coronary artery stent placement Postsurgical percutaneous transluminal coronary angioplasty status 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 Ischemic cardiomyopathy Other specified forms of chronic ischemic heart disease Chronic anticoagulation Encounter for long-term (current) use of anticoagulants documented in this encounter Discontinued Medications Medication Sig Discontinue Reason Start Date End Da te Brilinta 90 mg tablet TAKE 1 TABLET BY MOUTH EVERY 12 HOURS 02/10/2022 04/03/2022 losartan (COZAAR) 25 mg tablet Take 1 tablet (25 mg total) by mouth daily 05/17/2021 04/03/2022 documented as of this encounter Care Teams Lumber Loader Relationship Specialty Start Date End Date Tao Jeffers MD [address] [place] [address] PCP - General 12/18/11 Victor M Barnes MD [address] [place] [address] Consulting Physician Cardiology 05/16/21 Zane Lopez MD [address] [place], [place] [id number] Consulting Physician Electrophysiology 05/16/21 Miscellaneous, Not In File 05/23/21 documented as of this encounter
--- OUTSIDE RECORDS SUMMARY | 2024-07-30 20:16 | XMS_ITS | Encounter Summary ---
Author Organization [facility] Address [address] [place] [address] Care Team Providers Care Water Softener Service Supervisor Name Role Phone Tao Jeffers MD Primary Care Provider Victor M Barnes MD Unavailable [phone] Zane Lopez MD Unavailable [phone] Miscellaneous, Not In File Unavailable Unava ilable Reason for Visit * Cardiology (Routine) - Closed Specialty Diagnoses / Procedures Referred By Contac t Referred To Contact Diagnoses Ischemic cardiomyopathy Procedures DEVICE CHECK - REMOTE Ceasar Rosas MD [address] [facility], [place] [address] Phone: tel: fax: [facility] Referral ID Status Reason Start Date Expiration Date Visits Re quested Visits Authorized [id number] Closed 09/03/2022 03/03/2024 1 1 Encounter Details Date Type Department Care Team (Latest Contact Info) Description 12/08/2022 2:15 PM CDT Ancillary Procedure Arrhythmia Center [address] [place] [phone] Biventricular implantable cardioverter-defibrill ator (ICD) in situ (Primary Dx); Ischemic cardiomyopathy Social History Tobacco Use Types Packs/Day Years Used Date Smoking Tobacco: Former Smokeless Tobacco: Never Sex and Gender Information Value Date Recorded Sex Assigned at Not on file 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 BiV ICD CHECK (REMOTE) Patient ID: Lm Jimenez is a 82 y.o. male. This patient received a OHRAA BiV ICD. ??They had a routine remote [...] appropriate for device settings Ayla Colon RN us Ceasar Rosas MD [facility] PRO CEDURES Final Result documented in this encounter Visit Diagnoses Diagnosis 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- Primary Ischemic cardiomyopathy Other specified forms of chronic ischemic heart disease documented in this encounter Care Teams Water Softener Service Supervisor Relationship Specialty Start Date End Date Tao Jeffers MD [address] [place], [place] [address] PCP - General 12/18/11 Victor M Barnes MD [address] [place] [address] Consulting Physician Cardiology 05/16/21 aZne Lopez MD [address] [place], [place] [address] Consulting Physician Electrophysiology 05/16/21 Miscellaneous, Not In File 05/23/21 documented as of this encounter
--- OUTSIDE RECORDS SUMMARY | 2024-07-30 20:16 | XMS_ITS | Encounter Summary ---
Author Organization [facility] Medical [facility] Address [address] [place] [address] Care Team Providers Care Refrigeration Specialist Name Role Phone Tao Jeffers MD Primary Care Provider [phone] Victor M Barnes MD Unavailable Zane Lopez MD Unavailable [phone] Miscellaneous, Not In File Unavailable Unava ilable Reason for Referral * Cardiology (Routine) - Closed Specialty Diagnoses / Procedures Referred By Contac t Referred To Contact Diagnoses 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 Procedures DEVICE CHECK - IN OFFICE Zane Lopez MD [address] [address] Phone: tel: fax: [facility] Medical Group Referral ID Status Reason Start Date Expiration Date Visits Re quested Visits Authorized [id number] Closed 06/27/2022 07/27/2023 1 1 TOLOGY ONCOLOGY CONSULTANT Reason for Visit * Reason Comments Atrial Fibrillation Encounter Details Date Type Department Care Team (Latest Contact Info) Description 07/02/2022 4:00 PM HEMATOLOGY ONCOLOGY CONSULTANT Office Visit [facility] [address] [facility] [address] [place] [phone] Zane Lopez MD [address] [facility] [address] [address] Biventricular implantable cardioverter-defibrill ator (ICD) in situ (Primary Dx) Social History Tobacco Use Types Packs/Day Years Used Date Smoking Tobacco: Former Smokeless Tobacco: Never Tobacco Cessation:Counseling Given: Not Answered Sex and Gender Information Value Date Recorded Sex Assigned at Not on file Legal Sex Male 12:29 AM HEMATOLOGY ONCOLOGY CONSULTANT Gender Identity Not on file Sexual Orientation Not on file documented as of this encounter Last Filed Vital Signs Vital Sign Reading Time Taken Comments Blood Pressure 114/55 07/02/2022 3:31 PM HEMATOLOGY ONCOLOGY CONSULTANT Pulse 70 07/02/2022 3:31 PM HEMATOLOGY ONCOLOGY CONSULTANT Temperature - - Respiratory Rate 18 07/02/2022 3:31 PM HEMATOLOGY ONCOLOGY CONSULTANT Oxygen Saturation - - Inhaled Oxygen Concentration - - Weight 84.7 kg (186 lb 11.2 oz) 07/02/2022 3:31 PM HEMATOLOGY ONCOLOGY CONSULTANT Height 180.3 cm (5' 11 ) 07/02/2022 3:31 PM HEMATOLOGY ONCOLOGY CONSULTANT Body Mass Index 26.04 07/02/2022 3:31 PM HEMATOLOGY ONCOLOGY CONSULTANT documented in this encounter Patient Instructions * Patient Instructions* Sumaya Smith MA - 07/02/2022 4:00 PM HEMATOLOGY ONCOLOGY CONSULTANT Follow up with Dr. Barnes . NO Appt made. TOLOGY ONCOLOGY CONSULTANT documented in this encounter Progress Notes * Zane Lopez MD - 07/02/2022 4:00 PM CST Patient ID: Lm Jimenez is a 81 y.o. male Chief Complaint Atrial Fibrillation HPI Patient doing well. No shortness of breath. Much improved since implant and AV node ablation. Compliant anticoagulation no bleeding problems EKG my interpretation atrial fibrillation biventricular pacing rate 70 appropriate QRS complex Device interrogation satisfactory lead parameters 99% biventricular pacing no VT == Patient seen in consultation to Dr Barnes for evaluation of atrial fibrillation. Patient presentedwith atrial fibrillation in December it significant dyspnea on exertion shortness of breath with minimal activity. He underwent cardioversion but had early recurrence. I reviewed records. He was placed on amiodarone then underwent another cardioversion but had early recurrence a week later. He felt better in sinus rhythm. Patient states he continues to have shortness of breath with minimal activity including a few stepsor putting on his clothes. He has a cough as well. Reports no syncope On anticoagulation. EF found to be 35%. Patient has a history of CAD and prior PCI Past history significant for hypertension I reviewed catheterization March 2021 moderate LV dysfunction EF 25% Creatinine 0.01 February 2021 echo December 2020 EF 40% SANDRA December 2020 EF 30% EKG today my interpretation atrial fibrillation ventricular rate 105 narrow QRS I discussed risks and benefits of ablation of AV node as well as device implant. I specifically discussed the risk in this patient of infection and pacer dependency Current Outpatient Medications: apixaban (ELIQUIS) 5 mg [...] by mouth every morning, Disp: , Rfl: Past Medical History: Diagnosis Date Atrial fibrillation (CMS/HCC) (HCC) Cardiomyopathy (HCC) Coronary artery disease Hyperlipidemia Hypertension History reviewed. No pertinent family history. Social History Tobacco Use Smoking status: Former Smoker Smokeless tobacco: Never Used Substance Use Topics Alcohol use: Not on file Review of Systems Constitutional: Negative. HENT: Negative. Eyes: Negative. Respiratory: hemoptysis. Cardiovascular: Negative. Gastrointestinal: Negative. Endocrine: Negative. Genitourinary: Negative. Skin: Negative. Neurological: Negative. Hematological: Negative. Psychiatric/Behavioral: Negative. Physical Exam BP 114/55 (BP Location: Left arm, Patient Position: Sitting) Pulse 70 Resp 18 Ht 180.3 cm (5'11 ) Wt 84.7 kg (186 lb 11.2 oz) BMI 26.04 kg/m?? Constitutional: No distress. Head: Normocephalic. Nose: Nose normal. Mouth/Throat: Mucous membranes are normal. Eyes: EOM are normal. Neck: Normal range of motion. Cardiovascular: reg rhythm, S1 normal and S2 normal. Pulmonary/Chest: Effort normal and breath sounds normal. Abdominal: Soft. Normal appearance. Neurological: alert, oriented to person, place, and time and easily aroused. Skin: warm and dry. Psychiatric: normal mood and affect. Musculoskeletal: No joint inflammation Impression: AF. Patient doing well following AV node ablation and device Cardiomyopathy. 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 EF improved on most recent echo to 45% CHF. Compensated CAD status post PCI Plan: continue meds Follow-up device clinic Zane Lopez MD TOLOGY ONCOLOGY CONSULTANT documented in this encounter Plan of Treatment Not on file documented as of this encounter Procedures Procedure Name Priority Date/Time Associated Diagnosis Comments ECG 12-LEAD Routine 07/02/2022 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 documented in this encounter Results * DEVICE CHECK - IN OFFICE (06/03/2023 1:53 PM HEMATOLOGY ONCOLOGY CONSULTANT) Anatomical Region Laterality Modality Other Narrative 06/05/2023 8:14 AM HEMATOLOGY ONCOLOGY CONSULTANT Ji [place] BI-V ICD imp on 05/23/21 for ICM/CHF/PAF, [...] device f/u 06/22/2024. Gerry remote f/u 09/08/2023. Sonia Tomas, RN Zane Lopez MD CV CARDIAC SERVICES PROCEDU RES Final Result * ECG 12 lead (07/02/2022) Zane Lopez MD ECG ORDERABLES Final Resul t documented in this encounter Visit Diagnoses Diagnosis 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- Primary S/P AV (atrioventricular) inocente ablation- Primary Other postprocedural status 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 Ischemic cardiomyopathy Other specified forms of chronic ischemic heart disease Persistent atrial fibrillation (HCC) Atrial fibrillation Congestive heart failure, unspecified HF chronicity, unspecified heart failure type (HCC) documented in this encounter Care Teams Refrigeration Specialist Relationship Specialty Start Date End Date Tao Jeffers MD [address] [place], [place] [address] PCP - General 12/18/11 Victor M Barnes MD [address] [place], [place] [address] Consulting Physician Cardiology 05/16/21 Zane Lopez MD [address] [place], [place] [address] Consulting Physician Electrophysiology 05/16/21 Miscellaneous, Not In File 05/23/21 documented as of this encounter
--- OUTSIDE RECORDS SUMMARY | 2024-07-30 20:16 | XMS_ITS | Encounter Summary ---
Author Organization [facility] Medical [facility] Address 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, unspecified whether flandreau or transplanted heart (HCC) Tao Jeffers MD [address] [place] [address] Phone: tel: fax: [facility] Medical [facility] Cardiology [address] [place] [address] Phone: tel: fax: Referral ID Status Reason Start Date Expiration Date V isits Requested Visits Authorized [id number] Closed Specialty Services Required 09/03/2021 03/02/2022 3 3 Encounter Details Date Type Department Care Team (Latest Contact Info) Description 09/26/2021 9:15 AM VP SECURITY Ancillary Procedure [facility] Medical [facility] Cardiology [address] [place] [address] 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; Chronic HFrEF (heart failure with reduced ejection fraction) (CMS/HCC) (HCC); Ischemic cardiomyopathy; Paroxysmal atrial fibrillation (CMS/HCC) (HCC); Biventricular implantable cardioverter-defibri llator (ICD) in situ; CAMACHO (dyspnea on exertion) Social History Tobacco Use Types Packs/Day Years Used Date Smoking Tobacco: Former Smokeless Tobacco: Never Sex and Gender Information Value Date Recorded Sex Assigned at Not on file Legal Sex Male 12:29 AM VP SECURITY Gender Identity Not on file Sexual Orientation Not on file documented as of this encounter Plan of Treatment Not on file documented as of this encounter Procedures Procedure Name Priority Date/Time Associated Diagnosis Comments TRANSTHORACIC ECHO (TTE) COMPLETE W DOPPLER/CF WO CONTRAST Routine 09/26/2021 9:57 AM VP SECURITY 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 Chronic HFrEF (heart failure with reduced ejection fraction) (CMS/HCC) (HCC) Ischemic cardiomyopathy Paroxysmal atrial fibrillation (CMS/HCC) (HCC) Biventricular implantable cardioverter-defibri llator (ICD) in situ CAMACHO (dyspnea on exertion) documented in this encounter Results * TRANSTHORACIC ECHO (TTE) COMPLETE W DOPPLER/CF WO CONTRAST (09/26/2021 9:57 AM VP SECURITY) Anatomical Region Laterality Modality Ultrasound 09/26/2021 9:08 AM VP SECURITY Narrative 09/26/2021 3:08 PM VP SECURITY [facility] Medical Group Cardiology [address] [address] [address] [address] P:[phone] P:[phone] Echocardiographic Report Patient Name: LM JIMENEZ : 1940 Study Date: 09/26/2021 9:08:21 AM Gender: M Tech: Location: [place] Ref.Provider: VICTOR M BARNES Height(Cm): 180 BSA: 1.98 Weight(Kg): 78.02 Heart Rate: 69 BP: 133/75 Quality: Good Order Provider: VICTOR M BARNES Procedures: Echocardiographic Report: Transthoracic echocardiogram with complete 2D, M-Mode, and color Doppler examination. Indications: Congestive Heart Failure, Coronary Artery Disease, Ischemic cardiomyopathy, and Paroxysmal atrial fibrillation. Measurements: 2D/M Mode ?Doppler ? Measurement ?Value ?Normal Range ? Measurement ?Value ?Normal Range ? EF Mod ? 35 ?AV Mean PG ? 2 ?mmHg ? EF MM ?50 ? [ 55 - 70 ] % ?AV Peak Patrick ?1.06 ? m/s ? LVIDd MM ? 6.13 ? [ 3.90 - 5.30 ] cm ? AV Peak PG ? 5 ?mmHg ? LVIDs MM ? 4.53 ? [ 2.30 - 3.90 ] cm ? AV VTI ? 0.21 ? cm ? LVPWd MM ? 1.13 ? [ 0.60 - 1.00 ] cm ? LVOT Peak Patrick ?0.67 ? [ 0.70 - 1.10 ] m/s ? IVSd MM ?1.20 ? [ 0.60 - 0.90 ] cm ? LVOT VTI ? 0.13 ? cm ? LA Dimension MM ?3.47 ? [ 2.70 - 3.80 ] cm ? MV E Peak Patrick ?0.58 ? [ 0.60 - 1.30 ] m/s ? AoR Diam MM ?3.53 ? [ 2.60 - 3.70 ] cm ? MV A Peak Patrick ?0.34 ? [ 0.40 - 0.80 ] m/s ? LA Volume Index ?35.00 ?[ 16.00 - 28.00 ] cc/m2 ?MV Decel Time ?206 ?[ 150 - 200 ] msec ? ACS MM ? 1.93 ? cm ? PV Peak Patrick ?0.52 ? [ 0.40 - 0.80 ] m/s ? TR Peak Patrick ?2.96 ? [ 0.40 - 0.80 ] m/s ? TR Peak PG ? 35 ? mmHg ? RVSP ? 43.00 ?mmHg ? E' ? 0.04 ? E/E' ? 13 ? - Findings: Interpretation Site: Exam was interpreted at [facility]. Left Ventricle: Mild concentric left ventricular hypertrophy. Mild enlargement of left ventricle cavity. Mild global left ventricular systolic dysfunction. Paradoxical septal motion consistent with RV pacemaker. Ejection fraction is visually estimated at 45 %. Right Ventricle: Normal right ventricular size. Normal right ventricular systolic function. Linear artifact in right ventricle suggestive of catheter(s), pacemaker lead(s), or ICD lead(s). Left Atrium: There is moderate enlargement of left atrium. Right Atrium: There is severe enlargement of right atrium. Linear artifact in right atrium suggestive of catheter(s), pacemaker lead(s), or ICD lead(s). Atrial Septum: Normal atrial septum. Mitral Valve: Normal appearance of the mitral valve. Moderate mitral annular calcification. Mild mitral valve regurgitation. Aortic Valve: No evidence of hemodynamically significant aortic stenosis by Doppler. Aortic cusps appear mildly calcified. Trileaflet aortic valve. Trace aortic valve regurgitation. Tricuspid Valve: Normal appearance of the tricuspid valve. Mild pulmonary hypertension based on right ventricular systolic pressure. Estimated peak RVSP is 43 mmHg. Mild tricuspid regurgitation. Pulmonic Valve: Pulmonic valve not well visualized. Trivial regurgitation in the pulmonic valve. Pericardium: Normal pericardium with no significant pericardial effusion. Aorta: Normal aortic root. No aortic root dilation. IVC: Normal size and normal respiratory collapse consistent with normal right atrial pressure (<5 mmHg). Conclusions: Mild concentric left ventricular hypertrophy. Mild [...] mmHg. Mild tricuspid regurgitation. Ventricular paced rhythm. Electronically Signed By: Сергей Barnes MD 2021-09-26 15:08:18 VP SECURITY CC: CC: Procedure Note Victor M Barnes MD - 09/26/2021 [facility] Medical Group Cardiology [address] [address] [address] [address] P:[phone] P:[phone] Echocardiographic Report Patient Name: LM JIMENEZPatient ID: [id number] : [id number] Date: 09/26/2021 9:08:21 AM Gender: MAccession #: [id number] Tech: GMLocation: [place] Ref.Provider: VICTOR M BARNESHeight(Cm): 180 BSA: 1.98Weight(Kg): 78.02 Heart Rate: 69BP: 133/75 Quality: GoodOrder Provider: VICTOR M BARNES Procedures: Echocardiographic Report: Transthoracic echocardiogram with complete 2D, M-Mode, and color Dopplerexamination. Indications: Congestive Heart Failure, Coronary Artery Disease, Ischemiccardiomyopathy, and Paroxysmal atrial fibrillation. Measurements: 2D/M Mode Doppler Measurement Value Normal Range MeasurementValue Normal Range EF Mod 35 AV Mean PG 2mmHg EF MM 50 [ 55 - 70 ] % AV Peak Vel1.06 m/s LVIDd MM 6.13 [ 3.90 - 5.30 ] cm AV Peak PG 5mmHg LVIDs MM 4.53 [ 2.30 - 3.90 ] cm AV VTI0.21 cm LVPWd MM 1.13 [ 0.60 - 1.00 ] cm LVOT Peak Vel0.67 [ 0.70 - 1.10 ] m/s IVSd MM 1.20 [ 0.60 - 0.90 ] cm LVOT VTI0.13 cm LA Dimension MM 3.47 [ 2.70 - 3.80 ] cm MV E Peak Vel0.58 [ 0.60 - 1.30 ] m/s AoR Diam MM 3.53 [ 2.60 - 3.70 ] cm MV A Peak Vel0.34 [ 0.40 - 0.80 ] m/s LA Volume Index 35.00 [ 16.00 - 28.00 ] cc/m2 MV Decel Aliu468 [ 150 - 200 ] msec ACS MM 1.93 cm PV Peak Vel0.52 [ 0.40 - 0.80 ] m/s TR Peak Vel2.96 [ 0.40 - 0.80 ] m/s TR Peak PG 35mmHg RVSP43.00 mmHg E'0.04 E/E' 13 - Findings: Interpretation Site: Exam was interpreted at [facility]. Left Ventricle: Mild concentric left ventricular hypertrophy. Mild enlargement of leftventricle cavity. Mild global left ventricular systolic dysfunction. Paradoxical septalmotion consistent with RV pacemaker. Ejection fraction is visually estimated at 45 %. Right Ventricle: Normal right ventricular size. Normal right ventricular systolic function.Linear artifact in right ventricle suggestive of catheter(s), pacemaker lead(s),or ICD lead(s). Left Atrium: There is moderate enlargement of left atrium. Right Atrium: There is severe enlargement of right atrium. Linear artifact in rightatrium suggestive of catheter(s), pacemaker lead(s), or ICD lead(s). Atrial Septum: Normal atrial septum. Mitral Valve: Normal appearance of the mitral valve. Moderate mitral annularcalcification. Mild mitral valve regurgitation. Aortic Valve: No evidence of hemodynamically significant aortic stenosis by Doppler.Aortic cusps appear mildly calcified. Trileaflet aortic valve. Trace aortic valveregurgitation. Tricuspid Valve: Normal appearance of the tricuspid valve. Mild pulmonary hypertensionbased on right ventricular systolic pressure. Estimated peak RVSP is 43 mmHg. Mildtricuspid regurgitation. Pulmonic Valve: Pulmonic valve not well visualized. Trivial regurgitation in the pulmonicvalve. Pericardium: Normal pericardium with no significant pericardial effusion. Aorta: Normal aortic root. No aortic root dilation. IVC: Normal size and normal respiratory collapse consistent with normal rightatrial pressure (<5 mmHg). Conclusions: Mild concentric left ventricular hypertrophy. Mild enlargement of leftventricle cavity. Mild global left ventricular systolic dysfunction. Paradoxical septalmotion consistent with RV pacemaker. Ejection fraction is visually estimated at 45 %. Normal appearance of the mitral valve. Moderate mitral annularcalcification. Mild mitral valve regurgitation. Normal appearance of the tricuspid valve. Mild pulmonary hypertensionbased on right ventricular systolic pressure. Estimated peak RVSP is 43 mmHg. Mildtricuspid regurgitation. Ventricular paced rhythm. 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 Chronic HFrEF (heart failure with reduced ejection fraction) (CMS/HCC) (HCC) Ischemic cardiomyopathy Other specified forms of chronic ischemic heart disease Paroxysmal atrial fibrillation (CMS/HCC) (HCC) Atrial fibrillation 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 CAMACHO (dyspnea on exertion) Other dyspnea and respiratory abnormality documented in this encounter Care Teams Creel Operator Relationship Specialty Start Date End Date Tao Jeffers MD [address] [place] [address] PCP - General 12/18/11 Victor M Barnes MD [address] [place] [address] Consulting Physician Cardiology 05/16/21 Zane Lopez MD [address] [place] [address] Consulting Physician Electrophysiology 05/16/21 Miscellaneous, Not In File 05/23/21 documented as of this encounter
--- OUTSIDE RECORDS SUMMARY | 2024-07-30 20:16 | XMS_ITS | Encounter Summary ---
Author Organization [facility] Address [address] [facility] [address] [place] [address] Care Team Providers Care Auto Parts Manager Name Role Phone Tao Jeffers MD Primary Care Provider Victor M Barnes MD Unavailable [phone] Zane Lopez MD Unavailable [phone] Miscellaneous, Not In File Unavailable Unava ilable Reason for Referral * Cardiology (Routine) - Closed Specialty Diagnoses / Procedures Referred By Contac t Referred To Contact Diagnoses Coronary artery disease involving [place] coronary artery of [place] heart without angina pectoris Chronic HFrEF (heart failure with reduced ejection fraction) (CMS/HCC) (HCC) Ischemic cardiomyopathy Paroxysmal atrial fibrillation (CMS/HCC) (HCC) 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 CAMACHO (dyspnea on exertion) Procedures Transthoracic Echo Complete W Doppler/CF Victor M Barnes MD [address] [place] [id number] Phone: tel: fax: External Order Referral ID Status Reason Start Date Expiration Date Visits Re quested Visits Authorized [id number] Closed 09/05/2021 10/05/2022 1 1 ANALYST Reason for Visit * Reason Comments Follow-up 2 mo f/u Coronary Artery Disease Atrial Fibrillation * Consultation (Routine) - Closed Specialty Diagnoses / Procedures Referred By Contac t Referred To Contact Cardiology Diagnoses Atherosclerosis of [place] coronary artery with other form of angina pectoris, unspecified whether [place] or transplanted heart (HCC) Tao Jeffers MD [address] [place] [address] Phone: tel: fax: [facility] Cardiology [address] [place] [address] Phone: tel: fax: Referral ID Status Reason Start Date Expiration Date V isits Requested Visits Authorized [id number] Closed Specialty Services Required 09/03/2021 03/02/2022 3 3 Encounter Details Date Type Department Care Team (Late st Contact Info) Description 09/05/2021 9:15 AM CORE ANALYST Office Visit [facility] Medical [facility] Cardiology [address] [place] [address] Victor M Barnes MD [address] [facility] [address] [place] [address] Coronary artery disease involving [place] coronary artery of [place] heart without angina pectoris (Primary Dx); Chronic HFrEF (heart failure with reduced ejection fraction) (CMS/HCC) ([facility]); Ischemic cardiomyopathy; Paroxysmal atrial fibrillation (CMS/HCC) ([facility]); HTN (hypertension), benign; CAMACHO (dyspnea on exertion); S/P AV (atrioventricular) inocente ablation; Biventricular implantable cardioverter-defibril lator (ICD) in situ; Mixed dyslipidemia; Chronic anticoagulation; S/P coronary artery stent placement; Atherosclerosis of [place] coronary artery with other form of angina pectoris, unspecified whether [place] or transplanted heart ([facility]) Social History Tobacco Use Types Packs/Day Years Used Date Smoking Tobacco: Former Smokeless Tobacco: Never Sex and Gender Information Value Date Recorded Sex Assigned at Not on file Legal Sex Male 12:29 AM CORE ANALYST Gender Identity Not on file Sexual Orientation Not on file documented as of this encounter Last Filed Vital Signs Vital Sign Reading Time Taken Comments Blood Pressure 130/68 09/05/2021 9:28 AM CORE ANALYST Pulse 68 09/05/2021 9:28 AM CORE ANALYST Temperature - - Respiratory Rate - - Oxygen Saturation 98% 09/05/2021 9:28 AM CORE ANALYST Inhaled Oxygen Concentration - - Weight 78 kg (172 lb) 09/05/2021 9:28 AM CORE ANALYST Height 180.3 cm (5' 11 ) 09/05/2021 9:28 AM CORE ANALYST Body Mass Index 23.99 09/05/2021 9:28 AM CORE ANALYST documented in this encounter Progress Notes * Victor M Barnes MD - 09/05/2021 9:15 AM CST Images from the original note were not included. DATE OF VISIT: 09/05/2021 CHIEF COMPLAINT Chief Complaint Patient presents with ??? Follow-up 2 mo f/u ??? Coronary Artery Disease ??? Atrial Fibrillation ASSESSMENT Diagnoses and all orders for this visit: Coronary artery disease involving [place] coronary artery of [place] heart without angina pectoris (Primary) - Transthoracic Echo Complete W Doppler/CF; Future Chronic HFrEF (heart failure with reduced ejection fraction) (CMS/HCC) ([facility]) - Transthoracic Echo Complete W Doppler/CF; Future Ischemic cardiomyopathy - Transthoracic Echo Complete W Doppler/CF; Future Paroxysmal atrial fibrillation (CMS/HCC) ([facility]) - Transthoracic Echo Complete W Doppler/CF; Future HTN (hypertension), benign CAMACHO (dyspnea on exertion) - Transthoracic Echo Complete W Doppler/CF; Future S/P AV (atrioventricular) inocente ablation 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 - Transthoracic Echo Complete W Doppler/CF; Future Mixed dyslipidemia Chronic anticoagulation S/P coronary artery stent placement PLAN/RECOMMENDATIONS Stable, [...] this time. If recurrence would change antiplatelet therapy. Monitor bright red blood per rectum black dark tarry stools. Notify the office immediately. If head injury, bleeding andor significant fall present to ER via EMS immediately. No anginal symptoms. Exertional dyspnea and fatigue did not improve after PCI. Aggressive CAD risk modification counseling performed. Continue current medical therapy. Notify office immediately with anginal symptoms. -status post overlapping 4.0 x 35 and 4.0 x 30 mm Orsiro FRIEDA to mid-distal RCA IVUS guided 04/16/21 -Was instructed to complete 30 days ASA 81mg daily then stop but he inadvertently continued apparently with continued Brilinta 90mg BID. Stop ASA now, he agrees. BP controlled, goal <140/90mmHg. Monitor BP on routine basis. Call with readings. Continue consistent cardiovascular exercise, weight loss, medication compliance, and low-sodium diet. -Losartan 25mg daily, cough with Lisinopril Lipids personally reviewed 01/03/21 LDL 53, well controlled goal LDL<70. Continue Atorvastatin 80mg qhs therapy and lifestyle modification. Compensated HFrEF NYHA class II-III. CHF counseling performed. Follow daily weight, less than 2 g daily sodium intake, medication compliance. Call w/ wt gain >3lb in 24 hrs or worsening edema and/or CAMACHO. -With combination of PCI and attempts at maintenance of SR, I would hope to see improvement in EF. -EF 35% by Echo, [facility]. -discussed this at length. Discussed hope his EF will improve as well as quality of life and improved activity tolerance. He admits he is feeling notably improved but not quite to where he would like. Continue Lasix 20 mg daily. Continue routine ICD interrogations as scheduled. Follow-up with [facility] ophysiology as scheduled. -Repeat 2D echocardiogram to reassess LV function, valve pathology and pulmonary pressures status post AV junctional ablation and biventricular pacing Recommendations to follow. Over 50% of this [...] required hospitalization and appendectomy. He presented to [facility] on 01/01/2021 under the advice [...] on amiodarone. ?? 01/18/21 Hospital follow-up with [employer] T[employer] T[employer]ER - Lm Jimenez comes to the office [...] a presyncopal episode: he fell into the [employer] waste bin head first, got himself up [...] difference for his nocturia. LAsix 20mg daily. MEDICAL HISTORY Past Medical History: [...] mg tablet furosemide (LASIX) 20 mg tablet losartan (COZAAR) 25 mg tablet metoprolol XL (TOPROL-XL) 50 mg extended release tablet tamsulosin (FLOMAX) 0.4 mg extended release capsule aspirin 81 mg enteric coated tablet levoFLOXacin (LEVAQUIN) 500 mg tablet ALLERGIES Allergies Allergen Reactions ??? Codeine Swelling ??? Sulfur Swelling ??? Wheat Itching Takes Zyrtec for it REVIEW OF SYSTEMS Review of Systems Constitutional: Negative for decreased appetite, diaphoresis, fever, malaise/fatigue, night sweats,weight gain and weight loss. HENT: Negative for hearing loss and nosebleeds. Eyes: Negative for blurred vision and pain. Cardiovascular: Positive for dyspnea on exertion and leg swelling. Negative for chest pain, claudication, irregular heartbeat, near-syncope, orthopnea, palpitations, paroxysmal nocturnal [...] and are negative. PHYSICAL EXAM Vitals BP 130/68 (BP Location: Left arm, Patient Position: Sitting) Pulse 68 Ht 180.3 cm (5' 11 ) Wt 78 kg (172 lb) SpO2 98% BMI 23.99 kg/m?? Weight: 78 kg (172 [...] and I told him to contact his rides attendant and get a appointment next week. ?? 08/30/21 Interpretation Summary This patient received a Ji BiV ICD. They had a routine Enfora remote transmission on 08/26/2021. ?? Device implant indications: Ischemic cardiomyopathy, congestive heart failure, paroxysmal atrial fibrillation, status post AV node ablation for AFib with RVR Interrogation of the patient's device demonstrates the following: ?? Presenting EGM: Bi V pace @ 70 bpm ?? Lead Measurements ?? Right Ventricle Left Ventricle Sensitivity (mV) 6.6 mV Not done mV Impedence (Ohms) 380 ohms 400 ohms Pace Threshold .625 V @ .50 ms .625 V @ .50 ms Pacing % 100 % 100 % HV Lead Impedance 36 ohms N/A ? Battery Status: 6.8-7.3 years to JIAN, charge time 9.0 seconds. ?? Episodes last 90 days/Comments: There were no new ventricular events noted on today's remote interrogation. ?? NORMAL DEVICE FUNCTION PROGRAMMED ?? Anti-coagulant(s): Brilinta 90 mg, Eliquis 5 mg twice daily Anti-arrhythmic(s): Toprol-XL 50 mg ?? Plan: 1) Normal Ji BiV ICD evaluation 2) Ji remote transmission scheduled in 3 months. I have personally reviewed EKG, electronic medical record, and bloodwork/lipids. Сергей Barnes MD, [facility] This note is dictated and transcribed using Guidecentral Direct Software. Department Store Door Greeter variancesmay occur. Despite proofreading, typographical errors may occur. ANALYST documented in this encounter Plan of Treatment Not on file documented as of this encounter Results * TRANSTHORACIC ECHO (TTE) COMPLETE W DOPPLER/CF WO CONTRAST (09/26/2021 9:57 AM CORE ANALYST) Anatomical Region Laterality Modality Ultrasound 09/26/2021 9:08 AM CORE ANALYST Narrative 09/26/2021 3:08 PM CORE ANALYST [facility] Cardiology [address] [facility] [place] [address] [id number] [address] [facility] [address] [place] [address] [address] P:[phone] P:[phone] Echocardiographic Report Patient Name: LM JIMENEZ : 13 Study Date: 09/26/2021 9:08:21 AM Gender: M Tech: Location: [place] Ref.Provider: VICTOR M BARNES Height(Cm): 180 BSA: [...] Findings: Interpretation Site: Exam was interpreted at [facility]. Left Ventricle: Mild concentric left ventricular hypertrophy. [...] Signed By: Сергей Barnes MD 2021-09-26 15:08:18 CORE ANALYST CC: CC: Procedure Note Victor M Barnes MD - 09/26/2021 [facility] Cardiology [address] [facility] [address] [id number] [address] [facility] [address] [place] [address] P:[phone] P:[phone] Echocardiographic Report Patient Name: LM JIMENEZPatient ID: [id number] : [id number] Date: 09/26/2021 9:08:21 AM Gender: MAccession #: [id number] Tech: GMLocation: [place] Ref.Provider: VICTOR M BARNESHeight(Cm): 180 BSA: 1.98Weight(Kg): [...] 16.00 - 28.00 ] cc/m2 MV Decel Nose284 [ 150 - 200 ] msec ACS MM 1.93 cm PV Peak Vel0.52 [ 0.40 - 0.80 ] m/s TR Peak Vel2.96 [ 0.40 - 0.80 ] m/s TR Peak PG 35mmHg RVSP43.00 mmHg E'0.04 E/E' 13 - Findings: Interpretation Site: Exam was interpreted at [facility]. Left Ventricle: Mild concentric left ventricular hypertrophy. [...] Signed By: Сергей Barnes MD 2021-09-26 15:08:18 CORE ANALYST CC: CC: Victor M Barnes MD CV ECHO PROCEDURES Final Result documented in this encounter Visit Diagnoses Diagnosis Coronary artery disease involving [place] coronary artery of [place] heart without angina pectoris- Primary Chronic HFrEF (heart failure with reduced ejection fraction) (CMS/HCC) ([facility]) Ischemic cardiomyopathy Other specified forms of chronic ischemic heart disease Paroxysmal atrial fibrillation (CMS/HCC) (HCC) Atrial fibrillation HTN (hypertension), benign Essential hypertension, benign CAMACHO (dyspnea on exertion) Other dyspnea and respiratory abnormality S/P AV (atrioventricular) inocente ablation Other postprocedural status 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 Mixed dyslipidemia Chronic anticoagulation Encounter for long-term (current) use of anticoagulants S/P coronary artery stent placement Postsurgical percutaneous transluminal coronary angioplasty status Atherosclerosis of [place] coronary artery with other form of angina pectoris, unspecified whether [place] or transplanted heart (HCC) Coronary artery disease involving [place] coronary artery of [place] heart without angina pectoris Chronic HFrEF (heart failure with reduced ejection fraction) (CMS/HCC) (HCC) Ischemic cardiomyopathy Other specified forms of chronic ischemic heart disease Paroxysmal atrial fibrillation (CMS/HCC) (HCC) Atrial fibrillation 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 CAMACHO (dyspnea on exertion) Other dyspnea and respiratory abnormality documented in this encounter Discontinued Medications Medication Sig Discontinue Reason Start Date End Da levoFLOXacin (LEVAQUIN) 500 mg tablet TAKE 1 TABLET BY MOUTH EVERY DAY FOR 10 DAYS Therapy completed 06/24/2021 09/05/2021 aspirin 81 mg enteric coated tablet Take 81 mg by mouth daily 09/05/2021 documented as of this encounter Historical Medications * This list may reflect changes made after this encounter. aspirin 81 mg enteric coated tablet Take 81 mg by mouth daily 09/05/2021 added in this encounter Orders Outpatient Referral Count Last Ordered Date Fir st Ordered Date AMB REFERRAL TO CARDIOLOGY 1 09/05/2021 documented in this encounter Care Teams Auto Parts Manager Relationship Specialty Start Date End Date Tao Jeffers MD [address] [place], [place] [address] PCP - General 12/18/11 Victor M Barnes MD [address] [place] [address] Consulting Physician Cardiology 05/16/21 Zane Lopez MD [address] [place] [address] Consulting Physician Electrophysiology 05/16/21 Miscellaneous, Not In File 05/23/21 documented as of this encounter
--- OUTSIDE RECORDS SUMMARY | 2024-07-30 20:16 | XMS_ITS | Encounter Summary ---
Author Organization [facility] Address [address] [facility] [address] [place] [address] Care Team Providers Care Negative Turner Apprentice Name Role Phone Tao Jeffers MD Primary Care Provider [phone] Victor M Barnes MD Unavailable [phone] Zane Lopez MD Unavailable [phone] Miscellaneous, Not In File Unavailable Unava ilable Encounter Details Date Type Department Care Team (Late st Contact Info) Description 12/12/2022 Orders Only [facility] Cardiology [address] [place] [address] Provider, MD Suzie [address] [place] [address] Social History Tobacco Use Types Packs/Day Years Used Date Smoking Tobacco: Former Smokeless Tobacco: Never Sex and Gender Information Value Date Recorded Sex Assigned at Not on file Legal Sex Male 12:29 AM YARD PIPE GRADER Gender Identity Not on file Sexual Orientation Not on file documented as of this encounter Plan of Treatment Not on file documented as of this encounter Procedures Procedure Name Priority Date/Time Associated Diagnosis Comments BMP - BASIC METABOLIC PANEL (7) Routine 12/08/2022 documented in this encounter Results * BMP - Basic Metabolic Panel (7) (12/08/2022) Historical Provider LAB BLOOD ORDERABLES Katya l Result documented in this encounter Visit Diagnoses Not on filedocumented in this encounter Care Teams Negative Turner Apprentice Relationship Specialty Start Date End Date Tao Jeffers MD [address] [place] [address] PCP - General 12/18/11 Victor M Barnes MD [address] [place] [address] Consulting Physician Cardiology 05/16/21 Zane Lopez MD [address] [place] [address] Consulting Physician Electrophysiology 05/16/21 Miscellaneous, Not In File 05/23/21 documented as of this encounter
--- OUTSIDE RECORDS SUMMARY | 2024-07-30 20:16 | XMS_ITS | Encounter Summary ---
Author Organization [facility] Address [address] [facility] [address] [place] [address] Care Team Providers Care Pocket Setter Lockstitch Name Role Phone Tao Jeffers MD Primary Care Provider Victor M Barnes MD Unavailable Zane Lopez MD Unavailable Miscellaneous, Not In File Unavailable Unava ilable Reason for Visit * Reason Comments Follow-up 3 mo f/u Coronary Artery Disease Atrial Fibrillation Encounter Details Date Type Department Care Team (Latest Contact Info) Description 11/28/2021 9:15 AM CDT Office Visit [facility] Medical [facility] Cardiology [address] [place] [address] Victor M Barnes MD [address] [facility] [address] [place] [address] Coronary artery disease involving [place] coronary artery of [place] heart without angina pectoris (Primary Dx); Ischemic cardiomyopathy; Paroxysmal atrial fibrillation (CMS/HCC) (HCC); Chronic HFrEF (heart failure with reduced ejection fraction) (CMS/HCC) (HCC); Biventricular implantable cardioverter-defibrillat or (ICD) in situ; HTN (hypertension), benign; Mixed dyslipidemia; S/P AV (atrioventricular) inocente ablation; S/P coronary artery stent placement; Chronic anticoagulation Social History Tobacco Use Types Packs/Day Years Used Date Smoking Tobacco: Former Smokeless Tobacco: Never Sex and Gender Information Value Date Recorded Sex Assigned at Not on file Legal Sex Male 12:29 AM INTERN Gender Identity Not on file Sexual Orientation Not on file documented as of this encounter Last Filed Vital Signs Vital Sign Reading Time Taken Comments Blood Pressure 126/80 11/28/2021 9:11 AM CDT Pulse 70 11/28/2021 9:11 AM CDT Temperature - - Respiratory Rate - - Oxygen Saturation 97% 11/28/2021 9:11 AM CDT Inhaled Oxygen Concentration - - Weight 80.5 kg (177 lb 6.4 oz) 11/28/2021 9:11 A M CDT Height 180.3 cm (5' 11 ) 11/28/2021 9:11 AM CDT Body Mass Index 24.74 11/28/2021 9:11 AM CDT documented in this encounter Progress Notes * Victor M Barnes MD - 11/28/2021 9:15 AM CDT Images from the original note were not included. DATE OF VISIT: 11/28/2021 CHIEF COMPLAINT Chief Complaint Patient presents with ??? Follow-up 3 mo f/u ??? Coronary Artery Disease ??? Atrial Fibrillation ASSESSMENT Diagnoses and all orders for this visit: Coronary artery disease involving [place] coronary artery of [place] heart without angina pectoris (Primary) Ischemic cardiomyopathy Paroxysmal atrial fibrillation (CMS/HCC) (HCC) Chronic HFrEF (heart failure with reduced ejection fraction) (CMS/HCC) (HCC) 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 HTN (hypertension), benign Mixed dyslipidemia S/P AV (atrioventricular) inocente ablation S/P coronary artery stent placement Chronic anticoagulation PLAN/RECOMMENDATIONS Stable, persistent A. Fib [...] improvement in EF. -EF 35% by Echo, [facility]. -EF 45% by Echo 09/2021, improved. - Continue Lasix 20 mg daily. Continue routine ICD interrogations as scheduled. Follow-up with electrophysiology as scheduled. 6. Cautioned about CHF, bleeding risk with NSAIDs but if excruciating pain may use one time rarely with full glass of water monitor for bleeding but avoid if possible. Over 50% of this visit counseling BiV [...] required hospitalization and appendectomy. He presented to [facility] on 01/01/2021 under the advice of his [...] on amiodarone. ?? 01/18/21 Hospital follow-up with ESTABLISHMENT GUIDE - Lm Stephanie Tony comes to the office today for a [...] a presyncopal episode: he fell into the [employer] waste bin head first, got himself up [...] me ds doing well from heart perspective. MEDICAL HISTORY Past Medical History: Diagnosis Date [...] and are negative. PHYSICAL EXAM Vitals BP 126/80 (BP Location: Left arm, Patient Position: Sitting) Pulse 70 Ht 180.3 cm (5' 11 ) Wt 80.5 kg (177 lb 6.4 oz) SpO2 97% BMI 24.74 kg/m?? Weight: 80.5 kg (177 lb 6.4 oz) Height: 180.3 cm (5' 11 ) Body mass index is 24.74 kg/m??. Physical Exam Vitals reviewed. Constitutional: General: [...] and I told him to contact his pharmacy technician infusion and get a appointment next week. ?? 08/30/21 Interpretation Summary This patient received a Ji BiV ICD. They had a routine Ji remote transmission on 08/26/2021. ?? Device implant [...] a routine Ji remote transmission on 11/25/21. ?? Device implant indications: Ischemic cardiomyopathy, congestive heart failure, paroxysmal atrial fibrillation, status post AV node ablation Interrogation of the patient's device demonstrates the following: ?? Presenting EGM: Bi V pace @ 70 bpm ?? Lead Measurements ?? Right Ventricle Left Ventricle Sensitivity (mV) 9.9 mV Not done mV Impedence (Ohms) 380 ohms 460 ohms Pace Threshold 0.625 V @ 0.50 ms 1.625 V @ 0.50 ms Pacing % 100 % 100 % HV Lead Impedance 43 ohms N/A ? Battery Status: 6.8-7.4 years to JIAN, charge [...] medical record, and bloodwork/lipids. Сергей Barnes MD, [facility] This note is dictated and transcribed using GOOD Direct Software. Business Analytics Faculty Member variancesmay occur. Despite proofreading, typographical errors may occur. documented in this encounter Plan of Treatment Not on file documented as of this encounter Visit Diagnoses Diagnosis Coronary artery disease involving [place] coronary artery of [place] heart without angina pectoris- Primary Ischemic cardiomyopathy Other specified forms of chronic ischemic heart disease Paroxysmal atrial fibrillation (CMS/HCC) (HCC) Atrial fibrillation Chronic HFrEF (heart failure with reduced ejection fraction) (CMS/HCC) (HCC) 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 HTN (hypertension), benign Essential hypertension, benign Mixed dyslipidemia S/P AV (atrioventricular) inocente ablation Other postprocedural status S/P coronary artery stent placement Postsurgical percutaneous transluminal coronary angioplasty status Chronic anticoagulation Encounter for long-term (current) use of anticoagulants documented in this encounter Care Teams Pocket Setter Lockstitch Relationship Specialty Start Date End Date Tao Jeffesr MD [address] [place], [place] [address] PCP - General 12/18/11 Victor M Barnes MD [address] [place], [place] [address] Consulting Physician Cardiology 05/16/21 Zane Lopez MD [address] [place], [place] [address] Consulting Physician Electrophysiology 05/16/21 Miscellaneous, Not In File 05/23/21 documented as of this encounter
--- OUTSIDE RECORDS SUMMARY | 2024-07-30 20:16 | XMS_ITS | Encounter Summary ---
Author Organization [facility] Address [address] [facility] [facility] [address] [place] [address] Care Team Providers Care Manager Mba Name Role Phone aTo Jeffers MD Primary Care Provider Victor M Barnes MD Unavailable Zane Lopez MD Unavailable Miscellaneous, Not In File Unavailable Unava ilable Encounter Details Date Type Department Care Team (Late st Contact Info) Description 05/19/2022 Orders Only [facility] Information Management [address] [place] [address] Scanning, Provider Social History Tobacco Use Types Packs/Day Years Used Date Smoking Tobacco: Former Smokeless Tobacco: Never Sex and Gender Information Value Date Recorded Sex Assigned at Not on file Legal Sex Male 12:29 AM CARPENTER PROTOTYPE Gender Identity Not on file Sexual Orientation Not on file documented as of this encounter Plan of Treatment Not on file documented as of this encounter Procedures Procedure Name Priority Date/Time Associated Diagnosis Comments SCAN - LABS 05/19/2022 documented in this encounter Results * SCAN - LABS (05/19/2022) us Provider Scanning Final Result documented in this encounter Visit Diagnoses Not on filedocumented in this encounter Care Teams Manager Mba Relationship Specialty Start Date End Date Tao Jeffers MD [address] [place] [id number] PCP - General 12/18/11 Victor M Barnes MD [address] [place], [place] [id number] Consulting Physician Cardiology 05/16/21 Zane Lopez MD [address] [place], [place] [id number] Consulting Physician Electrophysiology 05/16/21 Miscellaneous, Not In File 05/23/21 documented as of this encounter
--- OUTSIDE RECORDS SUMMARY | 2024-07-30 20:17 | XMS_ITS | Encounter Summary ---
Author Organization [facility] Address [address] [facility] [address] [place] [address] Care Team Providers Care Retinal Angiographer Name Role Phone Tao Jeffers MD Primary Care Provider [phone] Reason for Visit * Reason Comments Follow-up stress test * Consultation (Routine) - Closed Specialty Diagnoses / Procedures Referred By Contac t Referred To Contact Cardiology Diagnoses Persistent atrial fibrillation (HCC) Tao Jeffers MD [address] [place] [address] Phone: tel: fax: [facility] Cardiology [address] [facility] [address] [address] Phone: tel: fax: Referral ID Status Reason Start Date Expiration Date V isits Requested Visits Authorized [id number] Closed Specialty Services Required 03/29/2021 09/25/2021 3 3 Encounter Details Date Type Department Care Team (Late st Contact Info) Description 04/08/2021 8:30 AM CDT Office Visit [facility] Cardiology [address] [facility] [address] [address] Yolie Chao NP [address] [facility] [address] [place] [id number] Persistent atrial fibrillation (HCC); Chronic anticoagulation; Tachycardia induced cardiomyopathy (CMS/HCC) (HCC); Coronary artery disease involving assiniboine and sioux coronary artery of assiniboine and sioux heart without angina pectoris Social History Tobacco Use Types Packs/Day Years Used Date Smoking Tobacco: Former Smokeless Tobacco: Never Sex and Gender Information Value Date Recorded Sex Assigned at Not on file 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 Gender Identity Not on file Sexual Orientation Not on file documented as of this encounter Last Filed Vital Signs Vital Sign Reading Time Taken Comments Blood Pressure 112/80 04/08/2021 8:20 AM CDT Pulse 112 04/08/2021 8:20 AM CDT Temperature - - Respiratory Rate - - Oxygen Saturation 96% 04/08/2021 8:20 AM CDT Inhaled Oxygen Concentration - - Weight 78.5 kg (173 lb) 04/08/2021 8:20 AM CDT Height 180.3 cm (5' 11 ) 04/08/2021 8:20 AM CDT Body Mass Index 24.13 04/08/2021 8:20 AM CDT documented in this encounter Patient Instructions * Patient Instructions* Yolie Chao NP - 04/08/2021 8:30 AM CDT Restart metoprolol succinate at 50 mg once daily. You can cut the 100 mg tablet in half if big enough to cut. In the morning take the amiodarone and metoprolol, then wait 1 hour and check blood pressure. If the top blood pressure number is below 100, skip lisinopril that day. documented in this encounter Ordered Prescriptions Prescription Sig Dispense Quantity Refills Last Filled Start Date End Date lisinopriL (PRINIVIL,ZESTRIL) 10 mg tabletIndications:Ta chycardia induced cardiomyopathy (CMS/HCC) (HCC) Take 1 tablet (10 mg total) by mouth daily Hold if systolic BP in morning is below 100 30 tablet 11 04/08/2021 1 metoprolol XL (TOPROL-XL) 50 mg extended release tabletIndications:Pe rsistent atrial fibrillation (HCC) Take 1 tablet (50 mg total) by mouth daily 30 tablet 3 04/08/2021 2 documented in this encounter Progress Notes * Yolie Chao NP - 04/08/2021 8:30 AM CDT Images from the original note were not included. [facility] Cardiology [address] [place] [address] Date of Visit: 04/08/2021 Patient ID: Lm Jimenez [id number] Chief Complaint: Lm Jimenez is a 80 y.o. male who comes to the office for follow up of recurrent atrial fibrillation after cardioversion. History of Present Illness: Lm Jimenez is a 80 y.o. male with a past medical history of coronary artery disease s/p PCI in 1999, HTN, colon cancer in 2003, cataracts, BPH, pneumonia a few years ago which required hospitalization and appendectomy. He presented to [facility] on 01/01/2021 under the advice of his PCP for complaint of progressively worsening fatigue and exertional dyspnea and an elevated heart rate in the 150s. He was found to be in AFib with RVR, troponins negative, proBNP 2680, chest x-ray small right pleural effusion. Echocardiogram showed moderately reduced LV systolic dysfunction with EF 40-45%. Dr. Barnes met the patient in consultation. Systemic anticoagulation was advised for his CHADS2 Vasc score of 4. Heart rate did not become controlled with oral metoprolol so he proceeded to have a SANDRA guided cardioversion on 01/03/2021 which was successful on the 2nd shock. He came back to our office on 01/10/2021 and ECG showed that he had reverted back to AFib with RVR so he was loaded on amiodarone. 01/18/21 Hospital follow-up with [facility] - Lm Jimenez comes to the office [...] to know if he could reduce theEliquis. Records that I personally reviewed on the day of this visit include: (the interpretation is outlined in the HPI above) 02/11/2021 office note from myself. Subsequent telephone notes in epic, stress test report. I have also reviewed: allergies, current medications, past family history, past medical history, past social history, past surgical history and problem list Review of Systems Constitutional: Positive for malaise/fatigue. Negative for diaphoresis, fever, weight gain and weight loss. HENT: Negative for hearing loss. Eyes: Negative for visual disturbance. Cardiovascular: Negative for chest pain, claudication, dyspnea on exertion, leg swelling, orthopnea, palpitations, paroxysmal nocturnal dyspnea and syncope. Respiratory: Positive for cough and sputum production. Negative for hemoptysis, shortness of breath, snoring and wheezing. Hematologic/Lymphatic: Bruises/bleeds easily. Skin: Negative for poor wound healing and rash. Musculoskeletal: Negative for joint pain and myalgias. Gastrointestinal: Negative for heartburn, nausea and vomiting. Genitourinary: Negative for hematuria. Neurological: Negative for dizziness, headaches and light-headedness. Psychiatric/Behavioral: Negative for depression. The patient is not nervous/anxious. Vital Signs: BP 112/80 (BP Location: Left arm, Patient Position: Sitting) Pulse 112 Ht 180.3 cm (5' 11 ) Wt 78.5 kg (173 lb) SpO2 96% BMI 24.13 kg/m?? Physical Exam Constitutional: General: He is not in acute distress. Appearance: He is well-developed. HENT: Head: Normocephalic and atraumatic. Nose: Comments: Wearing a mask Eyes: General: No scleral icterus. Conjunctiva/sclera: Conjunctivae normal. Pupils: Pupils are equal, round, and reactive to light. Comments: Right ptosis Neck: Vascular: No JVD. Trachea: No tracheal deviation. Cardiovascular: Rate and Rhythm: Tachycardia present. Rhythm irregular. Heart sounds: Normal heart sounds. No murmur heard. Comments: Rate approx 120 bpm on auscultation Pulmonary: Effort: Pulmonary effort is normal. No respiratory distress. Breath sounds: Normal breath sounds. Abdominal: General: Bowel sounds are normal. There is no distension. Palpations: Abdomen is soft. Tenderness: There is no abdominal tenderness. Musculoskeletal: Right lower leg: No edema. Left lower leg: No edema. Skin: General: Skin is warm and dry. Neurological: Mental Status: He is alert and oriented to person, place, and time. Psychiatric: Mood and Affect: Mood normal. Behavior: Behavior normal. Allergies Allergen Reactions ??? Codeine Swelling ??? Sulfur Swelling ??? Wheat Itching Takes Zyrtec for it Current Outpatient Medications: ??? amiodarone (PACERONE) 200 mg tablet, Take 1 tablet (200 mg total) by mouth daily Load amiodarone 400 m times a day x4 days, 2 times a day x4 days, then daily for 2 weeks. Then 200 mg daily thereafter., Disp: 90 tablet, Rfl: 3 ??? cetirizine (ZyrTEC) 10 mg tablet, Take 10 mg by mouth daily, Disp: , Rfl: ??? Eliquis 5 mg tablet, Take 5 mg by mouth every 12 (twelve) hours, Disp: , Rfl: ??? lisinopriL (PRINIVIL,ZESTRIL) 10 mg tablet, Take 1 tablet (10 mg total) by mouth daily Hold if systolic BP in morning is below 100, Disp: 30 tablet, Rfl: 11 ??? polyethylene glycol (MIRALAX) 17 gram packet, Take 17 g by mouth daily, Disp: , Rfl: ??? simvastatin (ZOCOR) 40 mg tablet, Take 40 mg by mouth nightly, Disp: , Rfl: ??? tamsulosin (FLOMAX) 0.4 mg extended release capsule, Take 0.4 mg by mouth every morning, Disp: , Rfl: ??? metoprolol XL (TOPROL-XL) 50 mg extended release tablet, Take 1 tablet (50 mg total) by mouth daily, Disp: 30 tablet, Rfl: 3 No results found for: POTASSIUM, BUNSER, CREATININE, CHOL, TRIG, LDL, LDLCALC, HDL 01/03/2021 lipid panel: TC 105, HDL 33, TG 48, LDL 53. BMP: Na 137, K 3.5, BUN 17, creatinine 0.8, Mag 1.6, TSH 1.1. CBC: hemoglobin 13.2, hematocrit 40.1, platelet 121 01/01/2021 transthoracic echocardiogram: Moderately reduced LV systolic function with EF estimated 40-45%, indeterminate diastolic function, moderate LAE, severe DELMAR, moderate MR, [id number] TR, PASP 29 mmHg, small pericardial effusion 01/03/2021 transesophageal echocardiogram: Moderate to severe LV systolic dysfunction with EF estimated 30-35%, no intracardiac thrombus, mild to moderate MR, moderate LAE, severe DELMAR, small pericardial effusion. 03/06/2021 Lexiscan Nuclear stress test: Atrial fibrillation with RVR, heart rate 94-119 at rest. Left ventricular ejection fraction is 34 %. There is moderate to severe LV dysfunction. Myocardial perfusion imaging is probably normal. However, given LV systolic dysfunction with moderate LV enlargement balanced ischemia due to multivessel CAD cannot be excluded. Of note, there is no significant transient ischemic dilatation (TID) present which would strongly support multivessel CAD. Clinical correlation advised. Recommend follow up with drupal developer. Negative EKG portion of stress test. Assessment: Diagnoses and all orders for this visit: Persistent atrial fibrillation (HCC) - Ambulatory referral to Cardiology - metoprolol XL (TOPROL-XL) 50 mg extended release tablet; Take 1 tablet (50 mg total) by mouth daily Chronic anticoagulation Tachycardia induced cardiomyopathy (CMS/HCC) (HCC) - lisinopriL (PRINIVIL,ZESTRIL) 10 mg tablet; Take 1 tablet (10 mg total) by mouth daily Hold if systolic BP in morning is below 100 Coronary artery disease involving assiniboine and sioux coronary artery of assiniboine and sioux heart without angina pectoris Plan/Recommendations: He failed a cardioversion after amiodarone loading and we continued amiodarone for rate control buthis rate is not well controlled right now. I directed him to restart metoprolol succinate at 50 mg daily. But because of the low blood pressures I advised him to wait an hour after taking metoprolol and amiodarone, check blood pressure, and if systolic BP is below 100, hold lisinopril that day. If systolic BP is 100 or above take lisinopril 10 mg. He is tolerating anticoagulation with Eliquis. He is bruising easily and bleeding freely if scratched but I explained that this is the therapeutic dose for him. He was found to have a cardiomyopathy when he was diagnosed with his AFib. He is having a cough productive of white phlegm but he otherwise appears euvolemic (no weight gain, edema, JVD common rales)and is currently not requiring any diuretic therapy. He has a history of coronary artery disease with remote PCI. He found his previous stent cards and it shows intervention on 04/15/2000 with 3x13 mm BMS to prox LAD and 4x28 mm BMS to RCA. He remains on a statin and his LDL is at goal. Findings of his Lexiscan nuclear stress test were concerning forbalanced ischemia and he is scheduled for a cardiac catheterization next week. Keep the previously scheduled appointment with Dr. Barnes in April. Call us sooner with questions or concerns. Yolie Chao, ANP- Nurse Practitioner with [facility] Cardiology This note is dictated and transcribed using MModal Fluency Direct Software. Linen Room Supervisor variancesmay occur. Despite proofreading, typographical errors may occur. 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 involving assiniboine and sioux coronary artery of assiniboine and sioux heart without angina pectoris documented in this encounter Discontinued Medications Medication Sig Discontinue Reason Start Date End Da te lisinopriL (PRINIVIL,ZESTRIL) 10 mg tablet Take 1 tablet (10 mg total) by mouth daily 04/04/2021 04/08/2021 documented as of this encounter Orders Outpatient Referral Count Last Ordered Date Fir st Ordered Date AMB REFERRAL TO CARDIOLOGY 1 04/08/2021 documented in this encounter Care Teams Retinal Angiographer Relationship Specialty Start Date End Date Tao Jeffers MD [address] [place] [id number] PCP - General 12/18/11 documented as of this encounter
--- OUTSIDE RECORDS SUMMARY | 2024-07-30 20:17 | XMS_ITS | Encounter Summary ---
Author Organization [facility] Address [address] [place] [address] Care Team Providers Care Web Production Designer Name Role Phone Tao Jeffers MD Primary Care Provider [phone] Encounter Details Date Type Department Care Team (Late st Contact Info) Description 04/30/2021 Orders Only [facility] Cardiology [address] [place] [address] Ayla Ballesteros MA Social History Tobacco Use Types Packs/Day Years Used Date Smoking Tobacco: Former Smokeless Tobacco: Never Sex and Gender Information Value Date Recorded Sex Assigned at Not on file 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 Gender Identity Not on file Sexual Orientation Not on file documented as of this encounter Ordered Prescriptions Prescription Sig Dispense Quantity Refills Last Filled Start Date End Date atorvastatin (LIPITOR) 80 mg tablet Take 1 tablet (80 mg total) by mouth daily 90 tablet 3 04/30/2021 05/01/2021 documented in this encounter Plan of Treatment Not on file documented as of this encounter Visit Diagnoses Not on filedocumented in this encounter Discontinued Medications Medication Sig Discontinue Reason Start Date End Da te simvastatin (ZOCOR) 40 mg tablet Take 40 mg by mouth nightly Alternate therapy 12/03/2020 04/30/2021 documented as of this encounter Care Teams Web Production Designer Relationship Specialty Start Date End Date Tao Jeffers MD [address] [place] [address] PCP - General 12/18/11 documented as of this encounter
--- OUTSIDE RECORDS SUMMARY | 2024-07-30 20:17 | XMS_ITS | Encounter Summary ---
Author Organization [facility] Address [address] [facility] [address] [place] [address] Care Team Providers Care Skin Care Consultant Name Role Phone Tao Jeffers MD Primary Care Provider [phone] Encounter Details Date Type Department Care Team (Late st Contact Info) Description 01/29/2021 Telephone [facility] Cardiology [address] [facility] [address] [place] [address] Yolie Chao NP [address] [facility] [address] [place] [address] Social History Tobacco Use Types Packs/Day Years Used Date Smoking Tobacco: Former Smokeless Tobacco: Never Sex and Gender Information Value Date Recorded Sex Assigned at Not on file 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 Pt said he is still irregular but his HR is much better than before. * Telephone Encounter - Yuko Burden RN - 01/29/2021 12:21 PM CDT LM for pt to callback. * Telephone Encounter - Gage Blanco - 01/29/2021 11:01 AM CDT Pt called requesting a call from ANTHONY Huntley in regard to CV tomorrow 01/30. Contact:[phone] documented in this encounter Plan of Treatment Not on file documented as of this encounter Visit Diagnoses Not on filedocumented in this encounter Care Teams Skin Care Consultant Relationship Specialty Start Date End Date Tao Jeffers MD [address] [place] [address] PCP - General 12/18/11 documented as of this encounter
--- OUTSIDE RECORDS SUMMARY | 2024-07-30 20:17 | XMS_ITS | Encounter Summary ---
Author Organization [facility] Address [address] [facility] [address] [place] [address] Care Team Providers Care Nuclear Technologist Name Role Phone Tao Jeffers MD Primary Care Provider [phone] Reason for Visit * Consultation (Routine) - Closed Specialty Diagnoses / Procedures Referred By Contac t Referred To Contact Cardiology Diagnoses Atrial fibrillation, unspecified type (HCC) Tao Jeffers MD [address] [place] [address] Phone: tel: fax: [facility] Cardiology [address] [facility] 162 [facility] [address] [place] [address] Phone: tel: fax: Referral ID Status Reason Start Date Expiration Date V isits Requested Visits Authorized [id number] Closed Specialty Services Required 01/11/2021 07/10/2021 3 3 Encounter Details Date Type Department Care Team (Late st Contact Info) Description 01/18/2021 1:00 PM CDT Office Visit [facility] Cardiology [address] [address] Yolie Chao NP [address] [facility] [address] [place] [address] Persistent atrial fibrillation with rapid ventricular response (CMS/HCC) (Primary Dx); Tachycardia induced cardiomyopathy (CMS/HCC); Chronic systolic congestive heart failure (CMS/HCC); Chronic anticoagulation; History of cardioversion; Coronary artery disease involving n[place]ilchik coronary artery of ninilchik heart without angina pectoris; Dietary counseling; Hospital discharge follow-up; Atrial fibrillation, unspecified type ([facility]) Social History Tobacco Use Types Packs/Day Years Used Date Smoking Tobacco: Former Smokeless Tobacco: Never Sex and Gender Information Value Date Recorded Sex Assigned at Not on file 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 Gender Identity Not on file Sexual Orientation Not on file documented as of this encounter Last Filed Vital Signs Vital Sign Reading Time Taken Comments Blood Pressure 142/80 01/18/2021 12:54 PM CDT Pulse 103 01/18/2021 12:54 PM CDT Temperature - - Respiratory Rate - - Oxygen Saturation 98% 01/18/2021 12:54 PM CDT Inhaled Oxygen Concentration - - Weight 85.3 kg (188 lb) 01/18/2021 12:54 PM CDT Height 180.3 cm (5' 11 ) 01/18/2021 12:54 PM CDT Body Mass Index 26.22 01/18/2021 12:54 PM CDT documented in this encounter Patient Instructions * Patient Instructions* Yolie Chao NP - 01/18/2021 1:00 PM CDT Follow a low salt diet, with a goal of less than 2,000mg of sodium per day (pay attention to your portion sizes). One of the diets that fits this pattern is the DASH (Dietary Approaches to Stop Hypertension) eating plan. Follow a heart healthy diet. Eat a variety of fruits and vegetables, whole grains, low-fat dairy products, skinless poultry and fish, nuts and beans, non- tropical vegetable oils. Choose to use these oils: canola, corn, olive, peanut, safflower, soybean, sunflower, and vegetable(a blend of oils). Do not use palm oil or coconut oil. Limit saturated fat, trans fat, sodium, red meat, sweets and sugar-sweetened beverages. If you choose to eat red meat, compare labels and select the leanest cuts available. Try one or all of these suggestions: ???Substituting soy-based products (such as tofu or tempeh) for any meat in recipes ???Substituting a lean meat such as (non-fried) poultry or fish (other than shrimp) for red meat inrecipes ???Replacing refined grain products with higher-fiber whole-grain products whenever possible ???Drinking tea, carbonated water, or plain water instead of sugar-sweetened soft drinks and fruit juices ???Using a nut butter spread instead of traditional dairy butter Recommended diet plans: ???Mediterranean diet ???Dietary Approaches to Stop Hypertension (DASH) diet - see below ???Vegetarian or meat restricted diet ???Low-carbohydrate diet ???Low trans fatty acid diet The DASH (Dietary Approaches to Stop Hypertension) eating plan is a diet plan I recommend. https://www.nhlbi.nih.gov/health-topics/llui-ghfehg-grwj The [place] [employer] website is a great source of information. https://www.heart.org/ documented in this encounter Progress Notes * Yolie Chao NP - 01/18/2021 1:00 PM CDT Images from the original note were not included. [facility] Cardiology [address] [place] [address] Date of Visit: 01/18/2021 Patient ID: Lm Jimenez 1940 Chief Complaint: Lm Jimenez is a 80 y.o. male who comes to the office for a hospital follow up for atrial fibrillation with RVR and cardiomyopathy. History of Present Illness: Lm Jimenez is a 80 y.o. male with a past medical history of coronary artery disease s/p PCI in 1999, HTN, colon cancer in 2003, cataracts, BPH, pneumonia a few years ago which required hospitalization and appendectomy. He presented to [facility] on 01/01/2021 under the advice of [...] RVR so he was loaded on amiodarone. Hospital follow-up with MARJORIE - Lm Brown Tony comes to the office today for a hospital follow up visit. He feels better than he did prior to coming into the hospital but does not feel any better at this point than he did when he was discharged. He is still breathless with exertion and does not have much energy. In the last couple days he has recorded heart rates up to 120 and he did have 1 heartrate recording of 85. He has not been [...] anteroseptal infarct, rate 113 beats per minute Records that I personally reviewed on the day of this visit include: (the interpretation is outlined in the HPI above) Records from the above mentioned hospital admission. Today's ECG. I have also reviewed: allergies, current medications, past family history, past medical history, past social history, past surgical history and problem list Review of Systems Constitutional: Positive for malaise/fatigue. Negative for diaphoresis, fever, weight gain and weight loss. HENT: Negative for hearing loss. Eyes: Negative for visual disturbance. Cardiovascular: Positive for dyspnea on exertion. Negative for chest pain, claudication, leg swelling, orthopnea, palpitations, paroxysmal nocturnal dyspnea and syncope. Respiratory: Positive for shortness of breath. Negative for cough, hemoptysis, snoring and wheezing. Hematologic/Lymphatic: Does not bruise/bleed easily. Skin: Negative for poor wound healing and rash. Musculoskeletal: Negative for joint pain and myalgias. Gastrointestinal: Negative for heartburn, nausea and vomiting. Genitourinary: Negative for hematuria. Neurological: Negative for dizziness, headaches and light-headedness. Psychiatric/Behavioral: Negative for depression. The patient is not nervous/anxious. Vital Signs: BP 142/80 (BP Location: Right arm, Patient Position: Sitting) Pulse 103 Ht 180.3 cm (5' 11 ) Wt 85.3 kg (188 lb) SpO2 98% BMI 26.22 kg/m?? Physical Exam Constitutional: General: He is [...] sounds: Normal heart sounds. No murmur heard. Pulmonary: Effort: Pulmonary effort is normal. No respiratory distress. Breath sounds: Normal breath sounds. Abdominal: General: Bowel sounds are normal. Palpations: Abdomen is soft. Tenderness: There is no abdominal tenderness. Musculoskeletal: Comments: Trace bilateral pretibial edema Skin: General: Skin is warm and dry. [...] for 2 weeks. Then 200 mg daily thereafter. (Patient taking differently: Take 200 mg by mouth daily ), Disp: 90 tablet, Rfl: 3 ??? Eliquis 5 mg tablet, Take 5 mg by mouth every 12 (twelve) hours, Disp: , Rfl: ??? lisinopriL (PRINIVIL,ZESTRIL) 20 mg tablet, Take 20 mg by mouth daily, Disp: , Rfl: ??? metoprolol XL (TOPROL-XL) 100 mg 24 hr tablet, Take 1 tablet (100 mg total) by mouth daily, Disp: 30 tablet, Rfl: 11 ??? polyethylene [...] function, moderate LAE, severe DELMAR, moderate MR, vtzw-db-oibqtydn TR, PASP 29 mmHg, small pericardial effusion 01/03/2021 transesophageal echocardiogram: Moderate to severe LV systolic dysfunction with EF estimated 30-35%, no intracardiac thrombus, mild to moderate MR, moderate LAE, severe DELMAR, small pericardial effusion. Assessment: Diagnoses and all orders for this visit: Persistent atrial fibrillation with rapid ventricular response (CMS/HCC) (Primary) Tachycardia induced cardiomyopathy (CMS/HCC) Chronic systolic congestive heart failure (CMS/HCC) Chronic anticoagulation History of cardioversion Dietary counseling Hospital discharge follow-up Plan/Recommendations: He is 1 week into amiodarone loading. He remains in AFib with RVR heart rate has improved from 130 to 110s. He is not exhibiting signs of decompensated heart failure on exam today. Patient agrees torepeat the cardioversion after another week of amiodarone loading. I again explained the strategy that his AFib must be brought under better control so that we can treat the cardiomyopathy. Some of hi s fatigue could be medication side effect but it is also from the AFib with RVR and the cardiomyopathy. He has a history of coronary artery disease with remote PCI. He remains on a statin and his LDL is at goal. Consider ischemic evaluation after afib is under control. Counseling performed at this visit included heart healthy diet and low sodium diet. Return to the office to see me 1-2 weeks after cardioversion and plan future follow up with Dr. Barnes in 2-3 months. Call us sooner with questions or concerns. Yolie Chao, ANP-BC Nurse Practitioner with [facility] [place] Cardiology This note is dictated and transcribed using [employer]bin [employer] Software. Party Host/Hostess variancesmay occur. Despite proofreading, typographical errors may occur. Cosigned by Victor M Barnes MD at 01/18/2021 5:27 PM CDT documented in this encounter Miscellaneous Notes * Addendum Note - Francesca Mckeon MA - 01/18/2021 1:00 PM CDTAddended by: FRANCESCA MCKEON on: 01/21/2021 08:42 AM Modules accepted: Orders documented in this encounter Plan of Treatment Not on file documented as of this encounter Procedures Procedure Name Priority Date/Time Associated Diagnosis Comments ECG 12-LEAD Routine 01/18/2021 Persistent atrial fibrillation with rapid ventricular response (CMS/HCC) documented in this encounter Results * ECG 12 lead (01/18/2021) Yolie Chao NP ECG ORDERABLES Final Res ult documented in this encounter Visit Diagnoses Diagnosis Persistent atrial fibrillation with rapid ventricular response (CMS/HCC) (HCC)- Primary Tachycardia induced cardiomyopathy (CMS/HCC) (HCC) Chronic systolic congestive heart failure (CMS/HCC) (HCC) Chronic anticoagulation Encounter for long-term (current) use of anticoagulants History of cardioversion Coronary artery disease involving ninilchik coronary artery of ninilchik heart without angina pectoris Dietary counseling Dietary surveillance and counseling Hospital discharge follow-up Other follow-up examination Atrial fibrillation, unspecified type (HCC) documented in this encounter Historical Medications * This list may reflect changes made after this encounter. polyethylene glycol (MIRALAX) 17 gram packetIndications :constipation Take 17 g by mouth daily 05/23/2021 added in this encounter Orders Outpatient Referral Count Last Ordered Date Fir st Ordered Date AMB REFERRAL TO CARDIOLOGY 1 01/23/2021 documented in this encounter Care Teams Nuclear Technologist Relationship Specialty Start Date End Date Tao Jeffers MD [address] [place] [address] PCP - General 12/18/11 documented as of this encounter
--- OUTSIDE RECORDS SUMMARY | 2024-07-30 20:17 | XMS_ITS | Encounter Summary ---
Author Organization [facility] Address [address] [facility] [address] [place] [address] Care Team Providers Care Rice Drier Operator Name Role Phone Tao Jeffers MD Primary Care Provider Victor M Barnes MD Unavailable Zane Lopez MD Unavailable [phone] Encounter Details Date Type Department Care Team (Late st Contact Info) Description 04/16/2021 Telephone [facility] Cardiology [address] [facility] [address] [place] [address] Victor M Barnes MD [address] [address] Social History Tobacco Use Types Packs/Day Years Used Date Smoking Tobacco: Former Smokeless Tobacco: Never Sex and Gender Information Value Date Recorded Sex Assigned at Not on file 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 * Telephone Encounter - Lena John - 04/16/2021 11:06 AM CDT Pt's spouse called states pt is scheduled for a heart cath procedure this morning. States she is waiting on a call back to see how everything is going. Contact: documented in this encounter Plan of Treatment Not on file documented as of this encounter Visit Diagnoses Not on filedocumented in this encounter Care Teams Rice Drier Operator Relationship Specialty Start Date End Date Tao Jeffers MD [address] [place], [place] [address] PCP - General 12/18/11 Victor M Barnes MD [address] [place], [place] [id number] Consulting Physician Cardiology 05/16/21 Zane Lopez MD [address] [place], [place] [id number] Consulting Physician Electrophysiology 05/16/21 documented as of this encounter
--- OUTSIDE RECORDS SUMMARY | 2024-07-30 20:17 | XMS_ITS | Encounter Summary ---
Author Organization [facility] Address [address] [facility] [address] [place] [address] Care Team Providers Care Conditioner Tumbler Name Role Phone Tao Jeffers MD Primary Care Provider [phone] Victor M Barnes MD Unavailable Zane Lopez MD Unavailable Miscellaneous, Not In File Unavailable Unava ilable Encounter Details Date Type Department Care Team (Late st Contact Info) Description 04/29/2021 Telephone [facility] Cardiology [address] [place] [address] Victor M Barnes MD [id number] [place] [address] Social History Tobacco Use Types Packs/Day Years Used Date Smoking Tobacco: Former Smokeless Tobacco: Never Sex and Gender Information Value Date Recorded Sex Assigned at Not on file 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 Pt is SOB at time and doesn't have any energy and he is having trouble sleeping. He denies chest pain. Pt has been cont to check his BP and almost all of them have been above 100 systolic. Pt will bring his readings in with him-moved his appt to wed this week instead of a few weeks from now. * Telephone Encounter - Stephanie Gage Dasilva - 04/29/2021 10:25 AM CDT Pt requesting call from ANTHONY Huntley.Thank you Contact:[phone] documented in this encounter Plan of Treatment Not on file documented as of this encounter Visit Diagnoses Not on filedocumented in this encounter Care Teams Conditioner Tumbler Relationship Specialty Start Date End Date Tao Jeffers MD [address] [place], [place] [id number] PCP - General 12/18/11 Victor M Barnes MD [address] [place] [id number] Consulting Physician Cardiology 05/16/21 Zane Lopez MD [address] [place] [phone] Consulting Physician Electrophysiology 05/16/21 Miscellaneous, Not In File 05/23/21 documented as of this encounter
--- OUTSIDE RECORDS SUMMARY | 2024-07-30 20:17 | XMS_ITS | Encounter Summary ---
Author Organization [facility] Address [address] [facility] [address] [place] [address] Care Team Providers Care Seat Mender Name Role Phone Tao Jeffers MD Primary Care Provider [phone] Encounter Details Date Type Department Care Team (Late st Contact Info) Description 03/08/2021 Telephone [facility] Cardiology [address] [place] [address] Victor M Barnes MD [address] [facility] [address] [place], [place] [id number] Social History Tobacco Use Types Packs/Day Years Used Date Smoking Tobacco: Former Smokeless Tobacco: Never Sex and Gender Information Value Date Recorded Sex Assigned at Not on file 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 Ptverbalized understanding. * Telephone Encounter - Yuko Burden RN - 03/11/2021 8:47 AM CDT Spoke with AD-he said pt can wait until the week of 04/15 if he wants. Called pt and he was at [facility]-requested that I call back after 1030 today. * Telephone Encounter - Yuko Burden RN - 03/08/2021 1:04 PM CDT Pt called back and said he would be ok with scheduling only after 04/01. Told pt AD is in the hospital the week of 04/15 so if he was agreeable to a sooner time then it would be with one of AD's partners. Told pt I would discuss with AD and get back to him with his recommendation. * Telephone Encounter - Lena John - 03/08/2021 10:54 AM CDT Pt returning ANTHONY Huntley call. Contact: documented in this encounter Plan of Treatment Not on file documented as of this encounter Visit Diagnoses Not on filedocumented in this encounter Care Teams Seat Mender Relationship Specialty Start Date End Date Tao Jeffers MD [address] [place] [address] PCP - General 12/18/11 documented as of this encounter
--- OUTSIDE RECORDS SUMMARY | 2024-07-30 20:17 | XMS_ITS | Encounter Summary ---
Author Organization [facility] Address [address] [facility] [address] [place] [address] Care Team Providers Care Manager Banking Name Role Phone Tao Jeffers MD Primary Care Provider [phone] Encounter Details Date Type Department Care Team (Late st Contact Info) Description 04/17/2021 Orders Only [facility] Cardiology [address] [facility] [address] [place] [address] Victor M Barnes MD [address] [facility] [address] [place] [address] Social History Tobacco Use Types Packs/Day Years Used Date Smoking Tobacco: Former Smokeless Tobacco: Never Sex and Gender Information Value Date Recorded Sex Assigned at Not on file 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 Gender Identity Not on file Sexual Orientation Not on file documented as of this encounter Plan of Treatment Not on file documented as of this encounter Procedures Procedure Name Priority Date/Time Associated Diagnosis Comments CARDIOLOGY DOCUMENT SCAN Routine 04/17/2021 documented in this encounter Results * SCAN - CARDIOLOGY (04/17/2021) Anatomical Region Laterality Modality Other Victor M Barnes MD CV CARDIAC SERVICES PROC EDURES Final Result documented in this encounter Visit Diagnoses Not on filedocumented in this encounter Care Teams Manager Banking Relationship Specialty Start Date End Date Tao Jeffers MD [address] [place] [address] PCP - General 12/18/11 documented as of this encounter
--- OUTSIDE RECORDS SUMMARY | 2024-07-30 20:17 | XMS_ITS | Encounter Summary ---
Author Organization [facility] Address [address] [facility] [address] [place] [address] Care Team Providers Care Aviation Project Manager Name Role Phone Tao Jeffers MD Primary Care Provider [phone] Encounter Details Date Type Department Care Team (Late st Contact Info) Description 01/15/2021 Telephone [facility] Cardiology [address] [facility] [address] [place] [address] Victor M Barnes MD 12[address] [facility] [address] [place], [place] [id number] Social History Tobacco Use Types Packs/Day Years Used Date Smoking Tobacco: Never Assessed Sex and Gender Information Value Date Recorded Sex Assigned at Not on file 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 * Telephone Encounter - Jannie Moss RN - 01/15/2021 12:34 PM CDT Pt called today to inform us that he is still not feeling the greatest after being on the amiodarone for a few days. He said his HR ranges from 80-121-but not sustained, O2 96% BP 137/87. Pt says he doesn't have a lot of energy but its not too bad and he denies any pain. Pt said he is a little SOB at night when trying to sleep so he has been sleeping in the recliner. Pt denies any other issues. Re-discussed message from CT/AD and talked about option for CV. Pt was under the impression that he would have to go the hospital for a couple of days for procedure-informed him that its an outpatient procedure that only takes a few hours total. Pt seemed more open to CV but would like to give the meds a little more time and talk to CT at greater length on Thursday at his next appt. Advised pt to call if his symptoms worsen or if he has any further questions or concerns. Will forward to CT as FYI. Yuko CRUZ * Telephone Encounter - Gage Blanco - 01/15/2021 11:56 AM CDT Pt requesting call from ANTHONY Huntley.Thank you Contact:[phone] documented in this encounter Plan of Treatment Not on file documented as of this encounter Visit Diagnoses Not on filedocumented in this encounter Care Teams Aviation Project Manager Relationship Specialty Start Date End Date Tao Jeffers MD [address] [place] [id number] PCP - General 12/18/11 documented as of this encounter
--- OUTSIDE RECORDS SUMMARY | 2024-07-30 20:17 | XMS_ITS | Encounter Summary ---
Author Organization [facility] Healthcare Address [address] [place] [address] Care Team Providers Care Form Tamper Operator Name Role Phone Tao Jeffers MD Primary Care Provider [phone] Victor M Barnes MD Unavailable [phone] Zane Lopez MD Unavailable Miscellaneous, Not In File Unavailable Unava ilable Encounter Details Date Type Department Care Team (Late st Contact Info) Description 06/10/2021 2:58 PM DIRECTOR OF MARKET RESEARCH Anesthesia Event [facility] [address] [place] [address] Maxine Jeong MD [address] [place] [address] Aga Frances CRNA [address] [place], [place] [id number] Anesthesia Record Procedure Summary Procedure Name Responsible Anesthesiologist Anesthesia Start Time Anesthesia Stop Time ATRIOVENTRICULAR (AV) NODE ABLATION 30409 Maxine Jeong MD 06/10/21 1458 06/10/21 1610 Events Date Time Event Comment 06/10/2021 1445 1458 An Start 1458 An Start Data 1505 An Induction The patient was reevaluated immediately before moderate or deep sedation use and before anesthesia induction. 1509 Anesthesia Ready 1600 an stop data 1610 Handoff to RN I completed my handoff to the receiving nurse during which we: 1. Patient identified 2. Responsible provider identified 3. Pertinent medical history reviewed 4. Procedure type and surgical course discussed 5. Intraoperative anesthetic management and any significant issues discussed 6. Expectations and concerns for postop period discussed 7. Questions solicited from receiving nurse 8. Patient disposition at the time of handoff: PACU 1610 An Stop Meds Name Total propofol 60 mg propofol 123.51 mg dexmedeTOMIDine 8 mcg phenylephrine (PAMELA-SYNEPHRIN E) 25,000 mcg in sodium chloride 0.9% 250 mL (100 mcg/mL) infusion 0.13 mg sodium chloride 0.9% infusion 100 mL * Agents Name O2 * Blood No blood administrations on file. Lines, Drains, and Airways Type Details Placement Removal Venous Sheath Placement Date: 05/27 12/14; Placement Time: 151; Hand Hygiene: Yes; Site Prep: Chlorhexidine; Site Prep Agent Dried: Yes; Sterile Barrier Used: Yes; Inserted by: Dr. Lopez 06/10/21 151 by Alba Kaufman RN Peripheral IV Placement Date: 05/27 12/14; Placement Time: 111; Catheter Size: 20 G; Orientation: Distal, Left, Posterior; Location: Forearm; Inserted by: cydney gaytan; Insertion Attempts: 1; Removal Date: 06/10/21; Removal Time: 18006/10/21 1110 by Ashley Osborne RN 06/10/21 180 by Ashley Osborne RN documented in this encounter Social History Tobacco Use Types Packs/Day Years Used Date Smoking Tobacco: Former Smokeless Tobacco: Never Sex and Gender Information Value Date Recorded Sex Assigned at Not on file Legal Sex Male 12:29 AM DIRECTOR OF MARKET RESEARCH Gender Identity Not on file Sexual Orientation Not on file documented as of this encounter OR Notes * Anesthesia Postprocedure Evaluation - Maxine Jeong MD - 06/11/2021 7:14 AM CST Patient: Lm Jimenez Procedure Summary Date: 06/10/21 Room / Location: [facility] CATH/EP LAB C / [facility] CARDIAC METAL ROOM DENTAL 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 Anesthesia Start: 1458 Anesthesia Stop: 1610 Procedures: ATRIOVENTRICULAR (AV) NODE ABLATION 19024 (N/A ) PERIPROC PPM EVAL/REPROG 90615 (N/A ) Diagnosis: Paroxysmal atrial fibrillation (CMS/HCC) (HCC) (Paroxysmal atrial fibrillation (CMS/HCC) (HCC) [I48.0]) Providers: Zane Lopez MD Responsible Provider: Maxine Jeong MD Anesthesia Type: general/TIVA ASA Status: 4 Anesthesia Type: general/TIVA Last vitals BP 119/80 Pulse 80 Temp (!) 2.4 ??C (36.4 ??F) Resp 16 SpO2 95% Anesthesia Post Evaluation Patient location during evaluation: PACU Patient participation: complete - patient participated Level of consciousness: follows simple commands and fully awake Pain scale: headache, no procedure-related pain. Pain management: adequate Airway patency: adequate Evidence of recall: no Cardiovascular status: acceptable and hemodynamically stable Respiratory status: acceptable and room air Hydration status: acceptable Pt is: normothermic Nausea/Vomiting status: none No complications documented. CTOR OF MARKET RESEARCH * Anesthesia Preprocedure Evaluation - Pardeep Farnsworth MD - 06/10/2021 2:38 PM CST Images from the original note were not included. Anesthesia Evaluation Lm Jimenez is a 80 y.o. male with a past medical history of coronary artery disease s/p PCI in 1999, HTN, colon cancer in 2003, cataracts, BPH, pneumonia a few years ago which required hospitalization and appendectomy. Procedure(s): ATRIOVENTRICULAR (AV) NODE ABLATION 46729 Pre-Op Diagnosis Codes: * Paroxysmal atrial fibrillation (CMS/HCC) (HCC) [I48.0] [employer] COVID-19 Vaccine (Pfizer SARS-CoV-2 Vaccination) 10/23/2020, 10/02/2020 [facility] 05/20/21 Last dose Eliquis 10 AM, Dr. Lopez aware. Last dose Brillinta today HISTORY Past Medical History Neurological Neuro/Psych system: negative Cardiovascular + Hypertension + Hyperlipidemia + CAD + Unknown stent(s) type - Prior stent(s) date: 1999. + CHF CHF Etiology: ischemic. LVEF: 20-30%. + Atrial fibrillation/flutter - Prior electrical cardioversion. Current Rhythm: atrial fibrillation. Rhythm type: persistent (one or more episodes > 7 days). Pertinent negatives: arrhythmia Respiratory Respiratory system: negative Hepatic / Heme Hepatic/Heme system: negative Renal / Renal/ system: negative Endocrine / Other + Cancer history- in remission. Cancer type: colon. Functional Capacity Functional capacity: 4-6 METs NM MPI SPECT 03/06/21 Conclusions: Atrial fibrillation with RVR, heart rate 94-119 [...] Clinical correlation advised. Recommend follow up with oil developer. Negative EKG portion of stress test. Electronically Signed By: Сергей Barnes MD 2021-03-06 17:07:09 CDT Patient Active Problem List Diagnosis ??? Paroxysmal atrial fibrillation (CMS/HCC) (HCC) ??? Coronary artery disease involving circle coronary artery of circle heart without angina pectoris ??? Cardiomyopathy (HCC) ??? At risk for amiodarone toxicity with residential use ??? Mixed dyslipidemia ??? HTN (hypertension), benign ??? Chronic anticoagulation ??? S/P coronary artery stent placement ??? CAMACHO (dyspnea on exertion) Past Medical History: Diagnosis Date ??? Atrial fibrillation (CMS/HCC) (HCC) ??? Cardiomyopathy (HCC) ??? Coronary artery disease ??? Hyperlipidemia ??? Hypertension Past Surgical History: Procedure Laterality Date ??? CARDIOVERSION ??? CORONARY ANGIOPLASTY 04/15/2000 3x13 mm BMS to prox LAD and 4x28 mm BMS to RCA Allergies Allergen Reactions ??? Codeine Swelling ??? Sulfur Swelling ??? Wheat Itching Takes Zyrtec for it Taking? Last Dose Start Date End Date Provider amiodarone (PACERONE) 200 mg tablet 01/11/21 07/10/21 Victor M Barnes MD Take 1 tablet (200 mg total) by mouth daily Load amiodarone 400 m times a day x4 days, 2 times a day x4 days, then daily for 2 weeks. Then 200 mg daily thereafter. Notes: Load amiodarone 400 mg: t.i.d. x4 days, b.i.d. x4 days, then daily for 2 weeks. Then 200 mg daily thereafter. apixaban (ELIQUIS) 5 mg tablet 06/03/21 -- Zane Lopez MD Take 1 tablet (5 mg total) by mouth 2 (two) times a day aspirin 81 mg enteric coated tablet -- -- Suzie Sahu MD atorvastatin (LIPITOR) 80 mg tablet 05/01/21 05/01/22 Victor M Barnes MD Take 1 tablet (80 mg total) by mouth daily Brilinta 90 mg tablet 04/16/21 -- Suzie Sahu MD cetirizine (ZyrTEC) 10 mg tablet -- -- Suzie Sahu MD losartan (COZAAR) 25 mg tablet 05/17/21 05/17/22 Victor M Barnes MD Take 1 tablet (25 mg total) by mouth daily metoprolol XL (TOPROL-XL) 50 mg extended release tablet 04/08/21 -- Yolie Chao NP Take 1 tablet (50 mg total) by mouth daily tamsulosin (FLOMAX) 0.4 mg extended release capsule 01/03/21 -- Suzie Sahu MD No current facility-administered medications for this visit. No current outpatient medications on file. Facility-Administered Medications Ordered in Other Visits: ??? sodium chloride 0.9% flush 0.5-20 mL, 0.5-20 mL, intra-catheter, Q8H ALINA ??? sodium chloride 0.9% flush 0.5-20 mL, 0.5-20 mL, intra-catheter, PRN ??? sodium chloride 0.9% infusion, 50 mL/hr, intravenous, Continuous Social History Tobacco Use Smoking Status Former Smoker Smokeless Tobacco Never Used Substance and Sexual Activity Alcohol Use Not on file Substance and Sexual Activity Drug Use Yes ??? Types: Alcohol Comment: drinks alcohol very seldomly No family history on file. There were no vitals filed for this visit. PT: No results found for requested labs within last 720 hours. INR: No results found for requested labs within last 720 hours. APTT: No results found for requested labs within last 720 hours. Hgb A1C: No results found for requested labs within last 720 hours. CBC RBC: No results found for requested labs within last 720 hours. RDW: No results found for requested labs within last 720 hours. MCHC: No results found for requested labs within last 720 hours. MCH: No results found for requested labs within last 720 hours. MCV: No results found for requested labs within last 720 hours. Hct: No results found for requested labs within last 720 hours. Hgb: No results found for requested labs within last 720 hours. WBC: No results found for requested labs within last 720 hours. MPV: No results found for requested labs within last 720 hours. Platelets: No results found for requested labs within last 720 hours. RDW CV: No results found for requested labs within last 720 hours. RDW Sd: No results found for requested labs within last 720 hours. BMP Glucose: No results found for requested labs within last 720 hours. Calcium: No results found for requested labs within last 720 hours. Sodium: No results found for requested labs within last 720 hours. Potassium: No results found for requested labs within last 720 hours. CO2: No results found for requested labs within last 720 hours. Chloride: No results found for requested labs within last 720 hours. BUN: No results found for requested labs within last 720 hours. Creatinine: No results found for requested labs within last 720 hours. DOS Physical Exam Medical history, medications, and allergies reviewed. Attestation: With today's edits, I endorse the findings of the anesthesia pre-evaluation assessment dated: 05/23/2021. Airway Exam: Mallampati: I Cervical ROM: FROM TM distance: >4 Cardiovascular Exam: Rate: regular Rhythm: irregular Pulmonary Exam: LCTA, bilat Dental Exam: Appears intact Current state: Patient's current state is cooperative and interactive. Anesthesia Plan ASA 4 My patient is approved for the Anesthesia Controlled Medication protocol when under care of a ANGLESMITH Planned anesthesia: General/TIVA Induction: Induction: intravenous. Postoperative Plan: No plan for postoperative opioid use. No postoperative mechanical ventilation intended. Patient's planned disposition post procedure is Floor. Informed Consent: Anesthesia plan and risks discussed with patient. Consent and Attending signature: I and/or my designee have discussed the anesthesia plan, benefits, possible alternatives, parental presence at time of induction (if indicated), and clinically relevant risks that may include dental injury, unintentional awareness, and/or other complications. The patient and/or parent/legal guardian understand, and agree to proceed. All questions answered. CTOR OF MARKET RESEARCH documented in this encounter Plan of Treatment Not on file documented as of this encounter Visit Diagnoses Not on filedocumented in this encounter Administered Medications Inactive Administered Medications - up to 3 most recent administrations Medication Order MAR Action Action Date Dose Rate Site dexmedeTOMIDine (PRECEDEX) injection intravenous, As needed, Starting on Thu06/10/21 at 1520, Anesthesia Intra-op Given 06/10/2021 3:29 PM DIRECTOR OF MARKET RESEARCH 4 mcg Given 06/10/2021 3:20 PM DIRECTOR OF MARKET RESEARCH 4 mcg phenylephrine (PAMELA-SYNEPHRINE) 25,000 mcg in sodium chloride 0.9% 250 mL (100 mcg/mL) infusion intravenous, Continuous PRN, Starting on Thu06/10/21 at 1541, Anesthesia Intra-op New Bag 06/10/2021 3:41 PM DIRECTOR OF MARKET RESEARCH 0.2 mcg/kg/min 9.624 mL/hr propofoL (DIPRIVAN) 10 mg/mL IV intravenous, Continuous PRN, Starting on Thu06/10/21 at 1505, Anesthesia Intra-op New Bag 06/10/2021 3:05 PM DIRECTOR OF MARKET RESEARCH 35 mcg/kg/min 16.842 mL/hr propofoL (DIPRIVAN) 10 mg/mL IV intravenous, As needed, Starting on Thu06/10/21 at 1505, Anesthesia Intra-op Given 06/10/2021 3:09 PM DIRECTOR OF MARKET RESEARCH 30 mg Given 06/10/2021 3:05 PM DIRECTOR OF MARKET RESEARCH 30 mg sodium chloride 0.9% infusion 50 mL/hr, intravenous, Continuous, Starting on Thu06/10/21 at 1130, Pre-Procedure (CV) New Bag 06/10/2021 2:58 PM DIRECTOR OF MARKET RESEARCH documented in this encounter Care Teams Form Tamper Operator Relationship Specialty Start Date End Date Tao Jeffers MD [address] [place], [place] [id number] PCP - General 12/18/11 Victor M Barnes MD [address] [place], [place] [address] Consulting Physician Cardiology 05/16/21 Zane Lopez MD [address] [place] [address] Consulting Physician Electrophysiology 05/16/21 Miscellaneous, Not In File 05/23/21 documented as of this encounter
--- OUTSIDE RECORDS SUMMARY | 2024-07-30 20:17 | XMS_ITS | Encounter Summary ---
Author Organization [facility] Medical [facility] Address [address] [place] [address] Care Team Providers Care Ring Barker Operator Name Role Phone Tao Jeffers MD Primary Care Provider [phone] Victor M Barnes MD Unavailable Zane Lopez MD Unavailable Encounter Details Date Type Department Care Team (Late st Contact Info) Description 05/17/2021 Telephone Arrhythmia [facility] [address] [facility] [address] [place] [address] Zane Lopez MD [address] [facility] [address] [place] [address] Social History Tobacco Use Types Packs/Day Years Used Date Smoking Tobacco: Former Smokeless Tobacco: Never Sex and Gender Information Value Date Recorded Sex Assigned at Not on file 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 He said he has called them to find out if and when he can get a covid test there but has been unable to get any answers. I confirmed that he had a copy of his lab orders, which he did have the blood work orders. I told him the lab at [facility] will definitely do the blood work without question. I told him I was not sure about the covid testing policies but someone from the lab should be able to answer his questions. I told him to call me if he had any problems. Patient verbalized understanding. I went on [facility]'s website and found the instructions for the covid testing. I faxed and order tothe number listed and requested they call the patient to schedule. documented in this encounter Plan of Treatment Not on file documented as of this encounter Visit Diagnoses Not on filedocumented in this encounter Care Teams Ring Barker Operator Relationship Specialty Start Date End Date Tao Jeffers MD [address] [place], [place] [address] PCP - General 12/18/11 Victor M Barnes MD [address] [place] [address] Consulting Physician Cardiology 05/16/21 Zane Lopez MD [address] [place] [address] Consulting Physician Electrophysiology 05/16/21 documented as of this encounter
--- OUTSIDE RECORDS SUMMARY | 2024-07-30 20:17 | XMS_ITS | Encounter Summary ---
Author Organization [facility] Healthcare Address [address] [place] [address] Care Team Providers Care Music Historian Name Role Phone Tao Jeffers MD Primary Care Provider [phone] Victor M Barnes MD Unavailable Zane Lopez MD Unavailable Miscellaneous, Not In File Unavailable Unava ilable Encounter Details Date Type Department Care Team (Late st Contact Info) Description 06/10/2021 3:00 PM SENIOR ADVISOR - 06/10/2021 4:20 PM SENIOR ADVISOR Surgery [facility] [address] [place] [address] Zane Lopez MD [address] [facility] [address] [place] [address] ATRIOVENTRICULAR (AV) NODE ABLATION [address]018 Surgery Details Date/Time Status Location OR Service Patient Class Case Class Case Type Trauma Case? 06/10/2021 3:00 PM Posted [facility] C[facility] ASSISTANT DISTRICT ATTORNEY CCL/ EP C Cardiovascular Outpatient Elective Panel 1 Procedure LRB Anes Op Region Wound Class Comments ATRIOVENTRICULAR (AV) NODE ABLATION 31588 N/A Choice [facility] PERIPROC PPM EVAL/REPROG 25426 N/A Surgeon Surgeon Role Service Panel Zane Lopez MD Primary Cardiovascular 1 Case Notes [facility] ref# [id number] JUDEAV NODE/AVJ ABLATION documented in this encounter Social History Tobacco Use Types Packs/Day Years Used Date Smoking Tobacco: Former Smokeless Tobacco: Never Sex and Gender Information Value Date Recorded Sex Assigned at Not on file Legal Sex Male 12:29 AM SENIOR ADVISOR Gender Identity Not on file Sexual Orientation Not on file documented as of this encounter Last Filed Vital Signs Vital Sign Reading Time Taken Comments Blood Pressure 117/74 06/10/2021 4:20 PM SENIOR ADVISOR Pulse 81 06/10/2021 4:20 PM SENIOR ADVISOR Temperature 2.4 ??C (36.4 ??F) 06/10/2021 11 :06 AM SENIOR ADVISOR Respiratory Rate 16 06/10/2021 11:0 6 AM SENIOR ADVISOR Oxygen Saturation 90% 06/10/2021 4:20 PM SENIOR ADVISOR Inhaled Oxygen Concentration - - Weight 80.2 kg (176 lb 12.9 oz) 021 11:06 AM SENIOR ADVISOR Height 180.3 cm (5' 11 ) 06/10/2021 11: 06 AM SENIOR ADVISOR Body Mass Index 24.66 06/10/2021 11:06 AM SENIOR ADVISOR documented in this encounter Discharge Instructions * Discharge Instructions* Ashley Osborne RN - 06/10/2021 5:05 PM SENIOR ADVISOR Cardiac Laboratory [address] [place], [place] [address] [facility] Discharge Instructions---Angiogram MEDICATIONS [] Do not take Metformin or medications containing Metformin (for example: Glucophage, Glyburide orGlucovance) for the next 48 hours. Resume taking your medication on [] Home Medications Returned [] Discharge Medication Reconciliation Reviewed [] Prescriptions sent home with patient and instructions given for usage [x] ANTIBIOTICS What you Should Know Information provided and reviewed. [] Your physician has prescribed Aspirin and an anti-platelet therapy medication such as Plavix, Brilinta, Effient. - These medications act as a blood thinner. Take the medications as your physician has prescribed; this will help prevent a blood clot from forming in your artery. - Do not stop taking these medications for any reason without discussing with your installer helper first. - These medications may make you bruise or bleed easier than normal. PROCEDURE SITE CARE [x] You may shower in 24 hours. Remove the bandage prior to showering. [x] DO NOT submerge your incision site in water. This includes pools, tub baths, lakes, diaz, ponds and hot tubs. You may shower only for the next 5 days (no baths). [x] Gently clean the procedure site using only soap and water. [x] DO NOT apply any kind of powder or lotion to the site [x] Make sure to dry the site thoroughly as wetness can lead to infection. DIET [x] Increase your intake of fluids (non-alcoholic). Drink 1/2 liter of fluids over the next 12 hours. [x] Resume home diet [] Special diet Instructed by Blade Groover ACTIVITY You have been given medications which helped make you comfortable during your procedure. The relaxing effects of these medications may continue for the rest of the day. For your safety: [x] Do not drive or operate hazardous machinery for the next 24 hours [x] Do not make important personal or business decision or sign legal documentation for the next 24hours. [x] Resume normal activity in 5 days. [x] No heavy pushing, pulling, or lifting more than 10 pounds for the next five days or until the procedure site has been healed. [x] Refrain from vigorous stair climbing or walking more than two blocks for the next five days. [x] No sexual activity for the next five days. SPECIAL INSTRUCTIONS After your procedure, it is normal to have mild soreness/tenderness at the procedure site. Some discoloration and /or bruising may occur at the puncture site region over the next 2-3 days Please notify your physician immediately if you develop any of the following: [x] Significant bleeding at the procedure site. If bleeding occurs, lie down, apply firm pressure to the site and call 911. [x] The leg on which your procedure was performed begins to swell, feel numb, weak or cold [x] Signs of infection which may include: - fever or chills - drainage from the procedure site - redness/warm to the touch at the procedure site [x] You start having signs of a heart attack which may include: - pain in your chest, arms, jaw or back -trouble catching your breath -feeling sick to your stomach -feeling sweaty FOLLOW UP CARE [] Call physician's office for appointment [] Appointment scheduled for with Additional Instructions: I understand and have received a copy of my discharge instructions Patient/Family Signature: Staff Signature/Title: Date and Time: OR ADVISOR documented in this encounter Medications at Time of Discharge cetirizine (ZyrTEC) 10 mg tablet Take 1 tablet (10 mg total) by mouth daily tamsulosin (FLOMAX) 0.4 mg extended release capsule Take 1 capsule (0.4 mg total) by mouth every morning 01/03/2021 apixaban (ELIQUIS) 5 mg tablet Take 1 tablet (5 mg total) by mouth 2 (two) times a day 60 tablet 06/03/2021 2 aspirin 81 mg enteric coated tablet Take 81 mg by mouth daily 1 atorvastatin (LIPITOR) 80 mg tablet Take 1 tablet (80 mg total) by mouth daily 90 tablet 3 05/01/2021 2 Brilinta 90 mg tablet Take 90 mg by mouth every 12 (twelve) hours 04/16/2021 2 losartan (COZAAR) 25 mg tablet Take 1 tablet (25 mg total) by mouth daily 30 tablet 11 05/17/2021 2 metoprolol XL (TOPROL-XL) 50 mg extended release tabletIndications: Persistent atrial fibrillation (HCC) Take 1 tablet (50 mg total) by mouth daily 30 tablet 3 04/08/2021 2 documented as of this encounter Discharge Disposition Disposition Code Departure Means Destination Discharge to home or self care documented in this encounter H&P Notes * Zane Lopez MD - 06/10/2021 2:47 PM CST I have reviewed the H&P, examined the patient, and endorse the findings as written. Plan of Care : Based on the above findings, I consider Lm Jimenez to be an acceptable risk for : Procedure(s): ATRIOVENTRICULAR (AV) NODE ABLATION 695[address] OR ADVISOR Source Note - Zane Lopez MD - 05/15/2021 8:15 AM CDT Patient ID: Lm Jimenez is a 80 y.o. male Chief Complaint Atrial Fibrillation HPI Patient seen in consultation to Dr Barnes for evaluation of atrial fibrillation. Patient presentedwith atrial fibrillation in December it significant dyspnea on exertion shortness of breath with minimal activity. He underwent cardioversion but had early recurrence. I reviewed records. He was placed on amiodarone then underwent another cardioversion but had early recurrence a week later. He felt better in sinus rhythm. He reports that he had another cardioversion last week that was ???unsuccessfuland ??? Patient states he continues to have shortness [...] infection and pacer dependency Current Outpatient Medications: ??? amiodarone (PACERONE) 200 mg tablet, Take 1 tablet (200 mg total) by mouth daily Load amiodarone 400 m times a day x4 days, 2 times a day x4 days, then daily for 2 weeks. Then 200 mg daily thereafter., Disp: 90 tablet, Rfl: 3 ??? aspirin 81 mg enteric coated tablet, Take 81 mg by mouth daily, Disp: , Rfl: ??? atorvastatin (LIPITOR) 80 mg tablet, Take 1 tablet (80 mg total) by mouth daily, Disp: 90 tablet, Rfl: 3 ??? Brilinta 90 mg tablet, Take 90 mg by mouth every 12 (twelve) hours, Disp: , Rfl: ??? cetirizine (ZyrTEC) 10 mg tablet, Take 10 mg by mouth daily, Disp: , Rfl: ??? Eliquis 5 mg tablet, Take 1 tablet (5 mg total) by mouth every 12 (twelve) hours, Disp: 60 tablet, Rfl: 11 ??? metoprolol XL (TOPROL-XL) 50 mg extended release tablet, Take 1 tablet (50 mg total) by mouth daily, Disp: 30 tablet, Rfl: 3 ??? polyethylene glycol (MIRALAX) 17 gram packet, Take 17 g by mouth daily, Disp: , Rfl: ??? sacubitriL-valsartan (ENTRESTO) 24-26 mg tablet, Take 1 tablet by mouth 2 (two) times a day, Disp: 60 tablet, Rfl: 11 ??? tamsulosin (FLOMAX) 0.4 mg extended release capsule, Take 0.4 mg by mouth every morning, Disp: , Rfl: Past Medical History: Diagnosis Date ??? Atrial fibrillation (CMS/HCC) (HCC) ??? Cardiomyopathy (HCC) ??? Coronary artery disease ??? Hyperlipidemia ??? Hypertension History reviewed. No pertinent family history. Social History Tobacco Use ??? Smoking status: Former Smoker ??? Smokeless tobacco: Never Used Substance Use Topics ??? Alcohol use: Not on file Review of Systems Constitutional: Negative. HENT: Negative. Eyes: Negative. Respiratory: hemoptysis. Cardiovascular: Negative. Gastrointestinal: Negative. Endocrine: Negative. Genitourinary: Negative. Skin: Negative. Neurological: Negative. Hematological: Negative. Psychiatric/Behavioral: Negative. Physical Exam BP 132/60 (BP Location: Right arm, Patient Position: Sitting) Pulse 105 Ht 180.3 cm (5' 11 ) Wt 77.1 kg (170 lb) BMI 23.71 kg/m?? Constitutional: No distress. Head: Normocephalic. Nose: Nose normal. Mouth/Throat: Mucous membranes are normal. Eyes: EOM are normal. Neck: Normal range of motion. Cardiovascular: irr rhythm, S1 normal and S2 normal. Pulmonary/Chest: Effort normal and breath sounds normal. Abdominal: Soft. Normal appearance. Neurological: alert, oriented to person, place, and time and easily aroused. Skin: warm and dry. Psychiatric: normal mood and affect. Musculoskeletal: No joint inflammation Impression: AF. Symptomatic with rapid rate. Early recurrence after cardioversion despite amiodarone. I discussed with the patient the option of a rhythm a rate control strategy. Patient wishes to pursue AV nodeablation and device. I think this is best in view of patient's symptoms. Cardiomyopathy. 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 EF 25% CHF. Class 3. CAD status post PCI Plan: TOWN CLERK ICD and AV node ablation. Will performed in staged fashion Hold Eliquis 2 days prior Zane Lopez MD documented in this encounter Plan of Treatment Not on file documented as of this encounter Procedures Procedure Name Priority Date/Time Associated Diagnosis Comments ECG 12-LEAD Routine 06/10/2021 4:24 PM SENIOR ADVISOR PERIPROC PPM EVAL/REPROG [id number] Routine 06/10/2021 3:48 PM SENIOR ADVISOR Paroxysmal atrial fibrillation (CMS/HCC) (HCC) ATRIOVENTRICULAR (AV) NODE ABLATION Routine 06/10/2021 3:48 PM SENIOR ADVISOR Paroxysmal atrial fibrillation (CMS/HCC) (HCC) ECG 12-LEAD STAT 06/10/2021 11:32 AM SENIOR ADVISOR documented in this encounter Results * ECG 12 lead (06/10/2021 4:24 PM SENIOR ADVISOR) 06/10/2021 4:24 PM SENIOR ADVISOR Narrative [facility] - 06/11/2021 7:28 AM SENIOR ADVISOR Vent Rate: 80 bpm RR Interval: 748 msec MD Interval: 242 msec QRS Duration: 151 msec QT Interval: 461 msec QTC Interval: 497 msec P-R-T [place]: 119 - -64 - 105 degrees ELECTRONIC VENTRICULAR PACEMAKER ABNORMAL RHYTHM ECG Electronically Signed By: Pardeep Emerson MD ??[facility] Card us Zane Lopez MD ECG ORDERABLES Final Resul t [facility] * ATRIOVENTRICULAR (AV) NODE ABLATION, PERIPROC PPM EVAL/REPROG [id number] (06/10/2021 3:48 PM SENIOR ADVISOR) Anatomical Region Laterality Modality X-Ray Angiograph y Narrative 06/11/2021 9:57 AM SENIOR ADVISOR Procedure Electrophysiology Study Radiofrequency Catheter Ablation of AV Junction Patient History Recurrent AF with rapid ventricular response rates despite medical therapy Method After informed consent had been obtained, the patient was brought to the EP lab in a post-absorptive, non-sedated state. ??A peripheral IV was in place. ??Continuous electrocardiography, blood pressure, and pulse oximetry monitoring was initiated and cardioversion patch electrodes were positioned on the chest. ??Conscious sedation was administered per protocol or anesthesia services, and local anesthesia was given at the access sites. ??Vascular access was achieved with ultrasound guidance, and sheaths were placed. ??A multipolar catheter was advanced to the right atrium, ??His bundle recording position, and the right ventricle. ??Baseline conduction intervals were performed. RV pacing and capture ??was confirmed, and antegrade AV function was assessed. ??Catheter ablation was performed as described below. At the end of the procedure, all catheters and sheaths were removed, hemostasis was achieved with a vascular closure device, ??and the patient was taken to the recovery area in stable condition. The ICD was interrogated and programmed pre- and post-procedure. Parameters were satisfactory, and the device was programmed to its final settings. Access Sites: ??Right femoral vein: ??1 sheath Ablation Using a 3.5 mm tip irrigated ablation catheter, the anterior septum was mapped to achieve a His signal with a maximal amplitude atrial electrogram. ??RF application ??resulted in complete heart block. ?? After a waiting period, complete heart block persisted with slow escape rhythm Conduction Intervals AF with VR 100-120 HV = 55 Conclusions 1. ? Successful AV junction ablation Recommendations 1. Follow up [facility] 2. Resume anticoagulation in ??3 days 3. ? VVI 80, then follow-up in device clinic to reprogram device to VVIR 60 ? Zane Lopez MD [facility] ? us Zane Lopez MD CV ELECTROPHYSIOLOGY PROCS Final Result * ECG 12 lead (06/10/2021 11:32 AM SENIOR ADVISOR) 06/10/2021 11:3 2 AM SENIOR ADVISOR Narrative [facility] - 06/10/2021 11:51 AM SENIOR ADVISOR Vent Rate: 98 bpm RR Interval: 612 msec MD Interval: 0 msec QRS Duration: 104 msec QT Interval: 390 msec QTC Interval: 445 msec P-R-T Windsor: 0 - 13 - -37 degrees ATRIAL FIBRILLATION NONSPECIFIC T-WAVE ABNORMALITY ABNORMAL RHYTHM ECG Electronically Signed By: Gennaro Lujan DO [facility] us Zane Lopez MD ECG ORDERABLES Edited Resu lt - Final [facility] documented in this encounter Visit Diagnoses Diagnosis Paroxysmal atrial fibrillation (CMS/HCC) (HCC)- Primary Atrial fibrillation Paroxysmal atrial fibrillation (CMS/HCC) (HCC) Atrial fibrillation documented in this encounter Admitting Diagnoses Diagnosis Paroxysmal atrial fibrillation (CMS/HCC) (HCC) Atrial fibrillation documented in this encounter Administered Medications Inactive Administered Medications - up to 3 most recent administrations Medication Order MAR Action Action Date Dose Rate Site acetaminophen (TYLENOL) 325 mg tablet - ADS Override Pull Starting on Thu06/10/21 at 1627, For 1 dose, BOB MERCHANT: fabiano override acetaminophen (TYLENOL) tablet 650 mg 650 mg, oral, Once, On Thu06/10/21 at 1700, For 1 dose, Indications: Shoulder PainIndications:Shoulder Pain Given 06/10/2021 4:34 PM SENIOR ADVISOR 650 mg heparin in 0.9% sodium chloride 1,000 units/500 mL (2 unit/mL) infusion (premix) As needed, Starting on Thu06/10/21 at 1511, Intra-Procedure (CV) Given 06/10/2021 3:50 PM SENIOR ADVISOR 500 mL Given 06/10/2021 3:11 PM SENIOR ADVISOR 500 mL lidocaine (XYLOCAINE) 20 mg/mL (2 %) injection As needed, Starting on Thu06/10/21 at 1510, Intra-Procedure (CV), Indications: Administration of Local AnesthesiaIndications:Administrati on of Local Anesthesia Given 06/10/2021 3:10 PM SENIOR ADVISOR 12 mL Right Groin sodium chloride 0.9% flush 0.5-20 mL 0.5-20 mL, intra-catheter, Every 8 hours scheduled, First dose on Thu06/10/21 at 1400, Pre-Procedure (CV), Flush volume based on line type and size. sodium chloride 0.9% flush 0.5-20 mL 0.5-20 mL, intra-catheter, As needed, line care, Starting on Thu06/10/21 at 1048, Pre-Procedure (CV), Flush volume based on line type and size. Flush before and after each use. sodium chloride 0.9% infusion 50 mL/hr, intravenous, Continuous, Starting on Thu06/10/21 at 1130, Pre-Procedure (CV) New Bag 06/10/2021 2:58 PM SENIOR ADVISOR documented in this encounter Discontinued Medications Medication Sig Discontinue Reason Start Date End Da te amiodarone (PACERONE) 200 mg tablet Take 1 tablet (200 mg total) by mouth daily Load amiodarone 400 m times a day x4 days, 2 times a day x4 days, then daily for 2 weeks. Then 200 mg daily thereafter. Stop Taking at Discharge 01/11/2021 06/10/2021 documented as of this encounter Active and Recently Administered Medications Times are shown in SENIOR ADVISOR. Scheduled Medication Order 06/08/2021 06/09/2021 06/10/2021 acetaminophen (TYLENOL) tablet 650 mg (COMPLETED) 650 mg, oral, Once, On Thu06/10/21 at 1700, For 1 dose, Indications: Shoulder Pain 1634 (Given - Provid er: Charla Parekh RN) sodium chloride 0.9% flush 0.5-20 mL 0.5-20 mL, intra-catheter, Every 8 hours scheduled, First dose on Thu06/10/21 at 1400, Pre-Procedure (CV), Flush volume based on line type and size. 1400 (Due) sodium chloride 0.9% flush 0.5-20 mL 0.5-20 mL, intra-catheter, Every 8 hours scheduled, First dose on Thu06/10/21 at 1645, Recovery (CV), Flush volume based on line type and size. , Indications: Flushing 1645 (Due) Continuous Medication Order 06/08/2021 06/09/2021 06/10/2021 sodium chloride 0.9% infusion 50 mL/hr, intravenous, Continuous, Starting on Thu06/10/21 at 1130, Pre-Procedure (CV) 1458 (New Bag - Prov ider: Aga Stubbs CRNA)1601 (Anesthesia Volume Adjustment - Provider: Aga Stubbs CRNA) PRN Medication Order 06/08/2021 06/09/2021 06/10/2021 heparin in 0.9% sodium chloride 1,000 units/500 mL (2 unit/mL) infusion (premix) (CANCELED) As needed, Starting on Thu06/10/21 at 1511, Intra-Procedure (CV) 1511 (Given - Provid er: Zane Lopez MD - Comment: back table flush)1550 (Given - Provider: Zane Lopez MD - Comment: Ablation catheter) lidocaine (XYLOCAINE) 20 mg/mL (2 %) injection (CANCELED) As needed, Starting on Thu06/10/21 at 1510, Intra-Procedure (CV), Indications: Administration of Local Anesthesia 1510 (Given - Provid er: Zane Lopez MD) sodium chloride 0.9% flush 0.5-20 mL 0.5-20 mL, intra-catheter, As needed, line care, Starting on Thu06/10/21 at 1048, Pre-Procedure (CV), Flush volume based on line type and size. Flush before and after each use. sodium chloride 0.9% flush 0.5-20 mL 0.5-20 mL, intra-catheter, As needed, line care, Starting on Thu06/10/21 at 1611, Recovery (CV), Flush volume based on line type and size. Flush before and after each use. , Indications: Flushing documented in this encounter Orders Medications Ordered That Blane ht Not Have Been Administered Count Last Ordered Date First Ordered Date sodium chloride 0.9% flush 0.5-20 mL 4 05/27 sodium chloride 0.9% infusion 1 06/10/2021 Diet Count Last Ordered Date First Orde red Date ADULT DISCHARGE DIET 1 06/10/2021 Nursing Count Last Ordered Date First Orde red Date DISCHARGE ACTIVITY 3 06/10/2021 DISCHARGE CALL PROVIDER 6 06/10/2021 DISCHARGE DRESSING 1 06/10/2021 FOLLOW UP WITH ESTABLISHED PROVIDER 1 06/10 TELEMETRY MONITORING 2 06/10/2021 Discharge Count Last Ordered Date First Orde red Date DISCHARGE PATIENT 1 06/10/2021 CORE MEASURES Count Last Ordered Date First Ord ered Date REASON FOR NO VTE PROPHYLAXIS AT ADMISSION 1 06/10/2021 documented in this encounter Care Teams Music Historian Relationship Specialty Start Date End Date Tao Jeffers MD [address] [place] [address] PCP - General 12/18/11 Victor M Barnes MD [address] [place] [address] Consulting Physician Cardiology 05/16/21 Zane Lopez MD [address] [place] [address] Consulting Physician Electrophysiology 05/16/21 Miscellaneous, Not In File 05/23/21 documented as of this encounter
--- OUTSIDE RECORDS SUMMARY | 2024-07-30 20:17 | XMS_ITS | Encounter Summary ---
Author Organization [facility] Address [address] [place] [address] Care Team Providers Care Self Pay Representative Name Role Phone Tao Jeffers MD Primary Care Provider [phone] Encounter Details Date Type Department Care Team (Late st Contact Info) Description 01/18/2021 Telephone [facility] Cardiology [address] [phone] Yolie Chao NP [address] [phone] Social History Tobacco Use Types Packs/Day Years Used Date Smoking Tobacco: Former Smokeless Tobacco: Never Sex and Gender Information Value Date Recorded Sex Assigned at Not on file Legal Sex Male 12:29 AM ADVERTISING EDITOR Gender Identity Not on file Sexual Orientation Not on file documented as of this encounter Miscellaneous Notes * Telephone Encounter - Yuko Burden RN - 01/18/2021 1:54 PM CDT Scheduled pt for CV on 01/30 at as requested by CT. Reviewed instructions and pt verbalized understanding. documented in this encounter Plan of Treatment Not on file documented as of this encounter Visit Diagnoses Not on filedocumented in this encounter Care Teams Self Pay Representative Relationship Specialty Start Date End Date Tao Jeffers MD [address] [place] [phone] PCP - General 12/18/11 documented as of this encounter
--- OUTSIDE RECORDS SUMMARY | 2024-07-30 20:17 | XMS_ITS | Encounter Summary ---
Author Organization [facility] Healthcare Address [address] [place] [address] Care Team Providers Care Abalone Processor Name Role Phone Tao Jeffers MD Primary Care Provider [phone] Victor M Barnes MD Unavailable [phone] Zane Lopez MD Unavailable Miscellaneous, Not In File Unavailable Unava ilable Encounter Details Date Type Department Care Team (Latest Contact Info) Description 05/23/2021 11:38 AM CDT - 05/23/2021 7:39 PM CDT Hospital Encounter [facility] Electrophysiology Lab [address] [place] [address] Zane Lopez MD [address] [facility] [address], [place] [address] Paroxysmal atrial fibrillation (CMS/HCC) (HCC) Discharge Disposition: Discharge to home or self care Social History Tobacco Use Types Packs/Day Years Used Date Smoking Tobacco: Former Smokeless Tobacco: Never Sex and Gender Information Value Date Recorded Sex Assigned at Not on file 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 Gender Identity Not on file Sexual Orientation Not on file documented as of this encounter Last Filed Vital Signs Vital Sign Reading Time Taken Comments Blood Pressure 130/82 05/23/2021 6:00 PM CDT Pulse 84 05/23/2021 6:00 PM CDT Temperature - - Respiratory Rate 16 05/23/2021 6:00 PM CDT Oxygen Saturation 90% 05/23/2021 6:00 PM CDT Inhaled Oxygen Concentration - - Weight 77.1 kg (169 lb 14.4 oz) 021 12:59 PM CDT Height 180.3 cm (5' 11 ) 05/23/2021 12: 59 PM CDT Body Mass Index 23.7 05/23/2021 12:59 PM CDT documented in this encounter Discharge Instructions * Discharge Instructions* Bren Vazquez RN - 05/23/2021 5:43 PM CDT Cardiac Laboratory [address] [place], [place] [address] CCL Discharge Instructions---Implant MEDICATIONS [] Home Medications Returned [] Discharge Medication Reconciliation Reviewed [] Prescriptions sent home with patient and instructions given for usage [x] ANTIBIOTICS What you Should Know Information provided and reviewed. INCISION CARE DO NOT apply any kind of powder or lotion to your incision [x] Keep your incision site as dry as possible. [x] DO NOT submerge your incision site in any water for days. This includes pools, tub baths, lakes, diaz, ponds and hot tubs. [] Your site has a dressing over the incision -You may shower after days. -Keep the dressing clean and dry -Do not remove the dressing until [] Your incision has steri strips. Do not remove the steri strips. Allow them to fall off on their own. [] Your physician has used surgical glue on your incision. Allow it ot slough off-do not attempt toremove this adhesive. [] You may shower immediately after your procedure. DIET [x] Resume home diet [] Special diet Instructed by Bar Turner ACTIVITY You have been given medications which helped make you comfortable during your procedure. The relaxing effects of these medications may continue for the rest of the day. For your safety: [x] Do not drive or operate hazardous machinery for the next 24 hours [x] Do not make important personal or business decision or sign legal documentation for the next 24hours [x] Resume normal activity in days. [x] Resume driving after 24 hours provided your discomfort level at the operative site allows movement required to drive. DO NOT [x] Raise your affected arm above your head for four weeks after your device is placed. [x] Lift anything heavier than 10 pounds with the affected arm for four weeks after your device is placed. [x] You may sleep with your arm sling around your shoulder as necessary to prevent you from raisingyour arm above your head while sleeping. SPECIAL INSTRUCTIONS Soreness and/or tenderness at the incision site may last about 1 week. You may have some bruising that may last several weeks. Please notify your physician immediately if you develop any of the following: Pain Assessment: No/denies pain Significant bleeding at the procedure site that does not stop afterapplying firm pressure directly on the incision for 10 minutes. [x] Swelling of the incision area [x] Unusual pain at the incision site. [x] Signs of infection which may include: - fever or chills - drainage from the incision - significant redness/warm to the touch at the procedure site - incision does not heal FOLLOW UP CARE [] Call physician's office for appointment [] Appointment scheduled for: with Additional Instructions: I understand and have received a copy of my discharge instructions Patient/Family Signature: Staff Signature/Title: Date and Time: Hold Eliquis. Resume ThursdayMay 27 Pacer / Defibrillator Discharge Instructions Wound Care ??? If you have glue (medical adhesive) over your incision you may shower immediately. Do not scrubor pull glue strip off, as this is protecting your incision. You may ???pat dry?? your incision with a towel. Do Not Use Soap or ointments on the wound. Do not ???submerge?? the incision (i.e., with a bath) for 4 weeks. ? ? Notify the physician at the office if you develop fever > 100.4, chills, increasing swelling, redness or drainage from your pacemaker site. ??? If you have a moderate amount of discomfort at the site, you may apply an ice pack for 20 minutes 3 times a day for one week. Activity ??? No driving for 1 week. ??? No lifting affected arm above shoulder for 4 weeks. This will ensure that your leads are well attached to your heart and avoid dislodgement. ??? You will receive a sling the day of your procedure. You may choose to wear this at night as a reminder to keep your arm below your shoulder level during the first 4 weeks. ??? Do not lift anything heavier than 10 lbs with the affected arm for 4 weeks. (A gallon of milk). ID Card ??? You will receive a temporary card from the device [employer]. Carry this in your wallet until yourpermanent card arrives, usually in 6-8 weeks. ??? A monitor will be sent home with you, please read the instructions and supervisor wire rope fabrication the monitor. Additional Instructions ??? Extra Strength Tylenol may be taken every 6 hours as needed for pain. ??? You should avoid strong magnetic currents (large electrical generators, arc welding). You can operate any home electrical appliances including microwave ovens. ??? Notify the physician office at [phone], immediately if you develop abrupt dizziness or shortness of breath. If you feel there is an urgent matter, call [phone] or go to the emergency room. ??? Call the office at [phone] with any questions or concerns. Call to schedule a follow-up appointment / wound check. This should be done in the first 7-10 days following your procedure. Zane Lopez MD, [facility] - [facility] Ceasar Rosas MD, MPH, [facility] - [facility] documented in this encounter Medications at Time of Discharge cetirizine (ZyrTEC) 10 mg tablet Take 1 tablet (10 mg total) by mouth daily tamsulosin (FLOMAX) 0.4 mg extended release capsule Take 1 capsule (0.4 mg total) by mouth every morning 01/03/2021 amiodarone (PACERONE) 200 mg tablet Take 1 tablet (200 mg total) by mouth daily Load amiodarone 400 m times a day x4 days, 2 times a day x4 days, then daily for 2 weeks. Then 200 mg daily thereafter. 90 tablet 3 01/11/2021 1 aspirin 81 mg enteric coated tablet Take [...] H&P Notes * Zane Lopez MD - 05/23/2021 1:12 PM CDT I have reviewed the H&P, examined the patient, and endorse the findings as written. Plan of Care : Based on the above findings, I consider Lm Jimenez to be an acceptable risk for : Procedure(s): INSERT/REPLACE IMPLANTABLE CARDIOVERTER-DEFIBRILLATOR (ICD) DUAL CHAMBER SYSTEM 24229 INSERT LV LEAD W PACEMAKER (PPM) OR IMPLANTABLE CARDIOVERTER-DEFIBRILLATOR (ICD) PLACEMENT (+) 62528 Source Note - Zane Lopez MD - [...] Class 3. CAD status post PCI Plan: ENTRY REP ICD and AV node ablation. Will performed in staged fashion Hold [facility] 2 days prior Zane Lopez MD documented in this encounter Plan of Treatment Not on file documented as of this encounter Procedures Procedure Name Priority Date/Time Associated Diagnosis Comments XR CHEST PA LATERAL 2 VIEWS Timed 05/23/2021 6:39 PM CDT ECG 12-LEAD Routine 05/23/2021 4:53 PM CDT INSERTION OF BIV ELECTRODE Routine 05/23/2021 4:16 PM CDT Paroxysmal atrial fibrillation (CMS/HCC) (HCC) ICD DC NEW Routine 05/23/2021 4:16 PM CDT Paroxysmal atrial fibrillation (CMS/HCC) (HCC) ECG 12-LEAD STAT 05/23/2021 1:19 PM CDT documented in this encounter Results * XR Chest PA Lateral 2 View (05/23/2021 6:39 PM CDT) Anatomical Region Laterality Modality Body, Chest N/A Computed Radiogr aphy 05/23/2021 6:47 PM CDT Impressions 05/23/2021 6:47 PM CDT 1. ??Pacemaker defibrillator with leads overlying the right ventricle and left ventricle. 2. ??Interstitial opacities throughout both lungs, chronicity unknown. Differentials include mild pulmonary edema versus chronic lung changes. 3. ??No pleural effusion or pneumothorax. Electronically signed by: Neetu Giordano M.D. Narrative 05/23/2021 6:47 PM CDT EXAMINATION: XR CHEST PA LATERAL 2 VIEWS HISTORY: Cardiac procedure. COMPARISON: None. FINDINGS: The heart is normal in size. ??No vascular congestion. ??Mild aortic calcifications. There is a transvenous pacemaker defibrillator with leads overlying the right ankle and coronary sinus. No pleural effusion or pneumothorax. ??Interstitial opacities throughout both lungs are seen, chronicity unknown. ??These may represent chronic fibrotic lung changes or mild pulmonary edema. ??No focal infiltrate. ??Mild biapical pleural parenchymal scarring. ?? Procedure Note Neetu Giordano MD - 05/23/2021 EXAMINATION: XR CHEST PA LATERAL 2 VIEWS HISTORY: Cardiac procedure. COMPARISON: None. FINDINGS: The heart is normal in size. No vascular congestion. Mild aortic calcifications. There is a transvenous pacemaker defibrillator with leads overlying the right ankle and coronary sinus. No pleural effusion or pneumothorax. Interstitial opacities throughout both lungs are seen, chronicity unknown. These may represent chronic fibrotic lung changes or mild pulmonary edema. No focal infiltrate. Mild biapical pleural parenchymal scarring. IMPRESSION: 1. Pacemaker defibrillator with leads overlying the right ventricle and left ventricle. 2. Interstitial opacities throughout both lungs, chronicity unknown. Differentials include mild pulmonary edema versus chronic lung changes. 3. No pleural effusion or pneumothorax. Electronically signed by: Neetu Giordano M.D. Zane Lopez MD IMG XR PROCEDURES Final Res ult * ECG 12 lead (05/23/2021 4:53 PM CDT) 05/23/2021 4:53 PM CDT Narrative [facility] - 05/24/2021 11:20 AM CDT Vent Rate: 92 bpm RR Interval: 647 msec KS Interval: 0 msec QRS Duration: 104 msec QT Interval: 366 msec QTC Interval: 416 msec P-R-T [place]: 0 - 15 - -60 degrees ATRIAL FIBRILLATION MODERATE T-WAVE ABNORMALITY, CONSIDER ANTEROLATERAL ISCHEMIA ABNORMAL ECG Electronically Signed By: Lm Smallwood MD us Zane Lopez MD ECG ORDERABLES Final Resul t [facility] * ICD DC NEW, INSERTION OF BIV ELECTRODE (05/23/2021 4:16 PM CDT) Anatomical Region Laterality Modality X-Ray Angiograph y Narrative 05/23/2021 4:44 PM CDT Name of procedure: 1. Implantation of a Biventricular ICD 2. Selective Coronary Sinus Venography 3. Subclavian venography History: This 80-year-old man has heart failure, LV dysfunction and atrial fibrillation with early recurrence after cardioversion despite amiodarone. AV junction ablation and device is recommended. ??Due to the presence of IVCD from chronic RV pacing with a QRS duration greater than 130 milliseconds, EF less than 25%, and class 3 chronic systolic CHF, ENTRY REP ICD is recommended as part of the management plan Methods: After informed consent was obtained, the patient was brought to the EP laboratory in a fasting, nonsedated state. ??Peripheral IV access was established. ??Prophylactic antibiotics were administered prior to incision. ??Continuous ECG, blood pressure, and pulse oximetry monitoring were initiated. ??Cardioversion patch electrodes were placed on the patient's chest and back. ??A grounding patch was applied to the skin. ?? Sedation was administered per ??Anesthesia Services. To define the extrathoracic portion of the subclavian vein and exclude significant venous obstruction or anomalous anatomy, subclavian venography was performed prior to the procedure. ??Via a peripheral IV, contrast was injected and images were recorded. ??Findings: the subclavian vein and SVC were patent. The ??chest was prepared and draped in a sterile fashion. ??Local anesthesia was injected in the subcutaneous tissue in the infraclavicular area. ??An incision was made medial to the deltopectoral groove. ??The subcutaneous tissue was dissected the level of the prepectoral fascia. ??A subcutaneous pocket was created. ??Under fluoroscopic guidance and with the assistance of the images from the venogram, three separate venipunctures were made ?? in the extrathoracic portion of the subclavian vein using a micropuncture needle and modified Seldinger technique. ?? Guidewires were passed, and peel-away sheaths were used to advance the leads into the circulation. Using fluoroscopic guidance, the leads were positioned. ??The RV lead was advanced to the RV outflow tract then positioned in the RV apex. ??Adequate pacing and sensing ??parameters were obtained. Next, the LV pacing lead was placed. ??The coronary sinus was cannulated with a multipurpose-shaped outer CS guide sheath using an AL2 catheter and a hydrophilic wire. ??Selective coronary sinus venography was performed, and an LV lead was positioned in the target lateral branch over an angioplasty guidewire. ??Adequate pacing and sensing parameters were obtained. Next, the right atrial lead was positioned in the right atrium. ?? Adequate pacing and sensing parameters were obtained. All the leads were secured to the fascia with silk ties. The pocket was irrigated with antibiotic solution and hemostasis was assured. ??The generator was connected to the leads and placed inside the pocket. ??The wound was closed with 2 running layers of absorbable suture, and medical skin adhesive applied. ??Following the procedure, the patient was taken to the recovery area in stable condition. ??There were no complications. Lead parameters and device programming: See below Conclusions: 1. Successful placement of a Biventricular ICD Recommendations: 1. Check CXR and EKG 2. Follow-up [facility] in ??7-10 days 3. AVJ ablation when ready 4. Resume Eliquis in 4 d Zane Lopez MD Zane Lopez MD CV ELECTROPHYSIOLOGY PROCS Final Result * ECG 12 lead (05/23/2021 1:19 PM CDT) 05/23/2021 1:19 PM CDT Narrative [facility] - 05/23/2021 1:36 PM CDT Vent Rate: 109 bpm RR Interval: 546 msec KS Interval: 0 msec QRS Duration: 107 msec QT Interval: 359 msec QTC Interval: 423 msec P-R-T [place]: 0 - 42 - -30 degrees ATRIAL FIBRILLATION WITH RAPID VENTRICULAR RESPONSE NONSPECIFIC ST \T\ T-WAVE ABNORMALITY ABNORMAL ECG Electronically Signed By: Lm Woods DO, [facility] Zane Lopez MD ECG ORDERABLES Final Resul t [facility] documented in this encounter Visit Diagnoses Diagnosis Paroxysmal atrial fibrillation (CMS/HCC) (HCC)- Primary Atrial fibrillation Paroxysmal atrial fibrillation (CMS/HCC) (HCC) Atrial fibrillation documented in this encounter Admitting Diagnoses Diagnosis Paroxysmal atrial fibrillation (CMS/HCC) (HCC) Atrial fibrillation documented in this encounter Administered Medications Inactive Administered Medications - up to 3 most recent administrations Medication Order MAR Action Action Date Dose Rate Site sodium chloride 0.9% flush 0.5-20 mL 0.5-20 mL, intra-catheter, Every 8 hours scheduled, First dose on Anh 05/23/21 at 1400, Pre-Procedure (CV), Flush volume based on line type and size. sodium chloride 0.9% flush 0.5-20 mL 0.5-20 mL, intra-catheter, As needed, line care, Starting on Anh 05/23/21 at 1155, Pre-Procedure (CV), Flush volume based on line type and size. Flush before and after each use. sodium chloride 0.9% infusion 50 mL/hr, intravenous, Continuous, Starting on Anh 05/23/21 at 1230, Pre-Procedure (CV) New Bag 05/23/2021 3:22 PM CDT New Bag 05/23/2021 2:06 PM CDT documented in this encounter Discontinued Medications Medication Sig Discontinue Reason Start Date End Da te polyethylene glycol (MIRALAX) 17 gram packetIndications:cons tipation Take 17 g by mouth daily Error 05/23/2021 Eliquis 5 mg tablet Take 1 tablet (5 mg total) by mouth every 12 (twelve) hours Stop Taking at Discharge 05/13/2021 05/23/2021 documented as of this encounter Active and Recently Administered Medications Times are shown in CDT. Scheduled Medication Order 05/21/2021 05/22/2021 05/23/2021 ceFAZolin (ANCEF) 2,000 mg/20 mL in sterile water (premix) 2,000 mg (COMPLETED) 2,000 mg, intravenous, at 400 mL/hr, Administer over 3 Minutes, Once, On Anh 05/23/21 at 1230, For 1 dose, Pre-Procedure (CV), Administer within 60 minutes of incision., Indications: Prophylaxis, Surgical 1415 (Given - Provid er: Robby Sarabia MD) sodium chloride 0.9% flush 0.5-20 mL 0.5-20 mL, intra-catheter, Every 8 hours scheduled, First dose on Anh 05/23/21 at 1400, Pre-Procedure (CV), Flush volume based on line type and size. 1400 (Due) sodium chloride 0.9% flush 0.5-20 mL 0.5-20 mL, intra-catheter, Every 8 hours scheduled, First dose on Anh 05/23/21 at 1715, Recovery (CV), Flush volume based on line type and size. , Indications: Flushing 1715 (Due) Continuous Medication Order 05/21/2021 05/22/2021 05/23/2021 sodium chloride 0.9% infusion 50 mL/hr, intravenous, Continuous, Starting on Anh 05/23/21 at 1230, Pre-Procedure (CV) 1406 (New Bag - Prov ider: Jessica Charles CRNA)1522 (New Bag - Provider: Jessica Charles CRNA)1621 (Anesthesia Volume Adjustment - Provider: Jessica Charles CRNA) PRN Medication Order 05/21/2021 05/22/2021 05/23/2021 acetaminophen (TYLENOL) tablet 650 mg 650 mg, oral, Every 4 hours PRN, 1st line for pain, Starting on Anh 05/23/21 at 1644, Recovery (CV), Indications: Pain ioversoL (OPTIRAY 320) injection (CANCELED) As needed, Starting on Anh 05/23/21 at 1420, Intra-Procedure (CV) 1420 (Given - Provid er: Miguel Clarke RN)1616 (Given - Provider: Zane Lopez MD) lidocaine (XYLOCAINE) 20 mg/mL (2 %) injection (CANCELED) As needed, Starting on Anh 05/23/21 at 1457, Intra-Procedure (CV), Indications: Administration of Local Anesthesia 1457 (Given - Provid er: Zane Lopez MD) ondansetron (ZOFRAN) injection 4 mg 4 mg, intravenous, Administer over 2 Minutes, Every 8 hours PRN, nausea, vomiting, Starting on Anh 05/23/21 at 1644, Recovery (CV), Indications: Nausea and Vomiting sodium chloride 0.9% flush 0.5-20 mL 0.5-20 mL, intra-catheter, As needed, line care, Starting on Anh 05/23/21 at 1155, Pre-Procedure (CV), Flush volume based on line type and size. Flush before and after each use. sodium chloride 0.9% flush 0.5-20 mL 0.5-20 mL, intra-catheter, As needed, line care, Starting on Anh 05/23/21 at 1644, Recovery (CV), Flush volume based on line type and size. Flush before and after each use. , Indications: Flushing documented in this encounter Orders Medications Ordered That Blane ht Not Have Been Administered Count Last Ordered Date First Ordered Date acetaminophen (TYLENOL) 325 mg tablet - ADS Override Pull 1 05/23/2021 acetaminophen (TYLENOL) tablet 650 mg 1 ceFAZolin (ANCEF) 2,000 mg/2 0 mL in sterile water (premix) 2,000 mg 1 05/23/2021 ioversoL (OPTIRAY 320) injection 1 05/23/20 lidocaine (XYLOCAINE) 20 mg/ mL (2 %) injection 1 05/23/2021 ondansetron (ZOFRAN) injection 4 mg 1 05/23 sodium chloride 0.9% flush 0.5-20 mL 4 04/27 sodium chloride 0.9% infusion 1 05/23/2021 Diet Count Last Ordered Date First Orde red Date ADULT DISCHARGE DIET 1 05/23/2021 Nursing Count Last Ordered Date First Orde red Date DISCHARGE ACTIVITY 3 05/23/2021 DISCHARGE CALL PROVIDER 6 05/23/2021 DISCHARGE DRESSING 1 05/23/2021 DISCHARGE INSTRUCTIONS 1 05/23/2021 FOLLOW UP WITH ESTABLISHED PROVIDER 1 05/23 TELEMETRY MONITORING 3 05/23/2021 Discharge Count Last Ordered Date First Orde red Date DISCHARGE PATIENT 1 05/23/2021 CORE MEASURES Count Last Ordered Date First Ord ered Date REASON FOR NO VTE PROPHYLAXIS AT ADMISSION 1 05/23/2021 documented in this encounter Care Teams Abalone Processor Relationship Specialty Start Date End Date Tao Jeffers MD [address] [place], [place] [id number] PCP - General 12/18/11 Victor M Barnes MD [address] [place], [place] [id number] Consulting Physician Cardiology 05/16/21 Zane Lopez MD [address] [place] [address] Consulting Physician Electrophysiology 05/16/21 Miscellaneous, Not In File 05/23/21 documented as of this encounter
--- OUTSIDE RECORDS SUMMARY | 2024-07-30 20:17 | XMS_ITS | Encounter Summary ---
Author Organization [facility] Address [address] [place] [address] Care Team Providers Care Highway Painter Helper Name Role Phone Tao Jeffers MD Primary Care Provider [phone] Encounter Details Date Type Department Care Team (Late st Contact Info) Description 05/10/2021 Orders Only [facility] Cardiology [address] [place] [address] Victor M Barnes MD [address] [facility] [address] [place] [address] Social History Tobacco Use Types Packs/Day Years Used Date Smoking Tobacco: Former Smokeless Tobacco: Never Sex and Gender Information Value Date Recorded Sex Assigned at Not on file 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 Gender Identity Not on file Sexual Orientation Not on file documented as of this encounter Plan of Treatment Not on file documented as of this encounter Procedures Procedure Name Priority Date/Time Associated Diagnosis Comments CARDIOLOGY DOCUMENT SCAN Routine 05/10/2021 documented in this encounter Results * SCAN - CARDIOLOGY (05/10/2021) Anatomical Region Laterality Modality Other Victor M Barnes MD CV CARDIAC SERVICES PROC EDURES Final Result documented in this encounter Visit Diagnoses Not on filedocumented in this encounter Care Teams Highway Painter Helper Relationship Specialty Start Date End Date Tao Jeffers MD [address] [place] [address] PCP - General 12/18/11 documented as of this encounter
--- OUTSIDE RECORDS SUMMARY | 2024-07-30 20:17 | XMS_ITS | Encounter Summary ---
Author Organization [facility] Address [address] [place] [address] Care Team Providers Care Antique Dealer Name Role Phone Tao Jeffers MD Primary Care Provider [phone] Reason for Visit * Reason Comments Atrial Fibrillation * Consultation (Routine) - Closed Specialty Diagnoses / Procedures Referred By Contac t Referred To Contact Cardiology Diagnoses Paroxysmal atrial fibrillation (CMS/HCC) (HCC) Tao Jeffers MD [address] [place] [address] Phone: tel: fax: Zane Lopez MD Phone: tel: fax: Referral ID Status Reason Start Date Expiration Date V isits Requested Visits Authorized [id number] Closed Specialty Services Required 05/10/2021 11/06/2021 3 3 Encounter Details Date Type Department Care Team (Late st Contact Info) Description 05/15/2021 8:15 AM CDT Office Visit [facility] [address] [place] [address] Zane Lopez MD [address] [facility] [address] [place] [address] Paroxysmal atrial fibrillation (CMS/HCC) (HCC) (Primary Dx) Social History Tobacco Use Types Packs/Day Years Used Date Smoking Tobacco: Former Smokeless Tobacco: Never Sex and Gender Information Value Date Recorded Sex Assigned at Not on file 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 CAD status post PCI Plan: LEGAL INTERN ICD and AV node ablation. Will performed in staged fashion Hold Eliquis 2 days prior Zane Lopez MD documented in this encounter Miscellaneous Notes * Addendum Note - Sumaya Zabala MA - 05/15/2021 8:15 AM CDTAddended by: SUMAYA ZABALA on: 05/15/2021 09:07 AM Modules accepted: Orders documented in this encounter Plan of Treatment Scheduled Orders Name Type Priority Associated Diagnoses Orde r Schedule COVID-19 CORONAVIRUS RNA (OUTSIDE LABS) Nasopharyngeal Microbiology Routine Paroxysmal atrial fibrillation (CMS/HCC) ([facility]) Expected: 05/15/2021, Expires: 05/15/2022 documented as of this encounter Procedures Procedure Name Priority Date/Time Associated Diagnosis Comments ECG 12-LEAD Routine 05/15/2021 Paroxysmal atrial fibrillation (CMS/HCC) ([facility]) documented in this encounter Results * ECG 12 lead (05/15/2021) us Zane Lopez MD ECG ORDERABLES Final Resul t documented in this encounter Visit Diagnoses Diagnosis Paroxysmal atrial fibrillation (CMS/HCC) ([facility])- Primary Atrial fibrillation documented in this encounter Historical Medications * This list may reflect changes made after this encounter. aspirin 81 mg enteric coated tablet Take 81 mg by mouth daily 07/03/2021 added in this encounter Orders Outpatient Referral Count Last Ordered Date Fir st Ordered Date AMB REFERRAL TO CARDIAC ELECTROPHYSIOLOGY 1 05/15/2021 documented in this encounter Care Teams Antique Dealer Relationship Specialty Start Date End Date Tao Jeffers MD [address] [place] [address] PCP - General 12/18/11 documented as of this encounter
--- OUTSIDE RECORDS SUMMARY | 2024-07-30 20:17 | XMS_ITS | Encounter Summary ---
Author Organization [facility] Address [address] [place] [address] Care Team Providers Care Gas Meter Checker Name Role Phone Tao Jeffers MD Primary Care Provider [phone] Victor M Barnes MD Unavailable [phone] Zane Lopez MD Unavailable [phone] Miscellaneous, Not In File Unavailable Unava ilable Reason for Visit * Cardiology (Routine) - Closed Specialty Diagnoses / Procedures Referred By Contac t Referred To Contact Diagnoses Ischemic cardiomyopathy Procedures DEVICE CHECK - IN OFFICE Zane Lopez MD [address] [place] [address] Phone: tel: fax: [facility] Referral ID Status Reason Start Date Expiration Date Visits Re quested Visits Authorized [id number] Closed 05/24/2021 06/23/2022 1 1 Encounter Details Date Type Department Care Team (Latest Contact Info) Description 05/30/2021 9:00 AM CDT Ancillary Procedure Arrhythmia Center [address] [place] [id number] Ischemic cardiomyopathy; Automatic implantable cardiac defibrillator in situ Social History Tobacco Use Types Packs/Day Years Used Date Smoking Tobacco: Former Smokeless Tobacco: Never Sex and Gender Information Value Date Recorded Sex Assigned at Not on file 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 ??They had a routine in office transmission on 05/30/2021 Device implant indications: ??Ischemic cardiomyopathy, AFib with RVR ?? Interrogation of the patient's device demonstrates the following: Presenting EGM: ??AFib with RVR @ 114-130 bpm Lead Measurements Right Ventricle Left Ventricle Sensitivity (mV) 4.3 mV Not done mV Impedence (Ohms) 410 ohms 330 ohms Pace Threshold 0.5 V @ 0.5 ms 0.75 V @ 0.5 ms Pacing % Less than 1 % Less than 1 % HV Lead Impedance 33 ohms N/A LV 2 lead had a capture threshold of 1.0 volts at 0.5 milliseconds, lead impedance was 650 Ohms. ??Bi V pacing is low due to AFib with RVR in a waiting AV node ablation. Battery Status: ??9.0 years to JIAN charge time 9.0 seconds Episodes last 90 days/Comments: AF [place] 100 %, patient is in chronic atrial fibrillation with RVR. There were no treated ventricular arrhythmias noted on today's in office device interrogation. NORMAL DEVICE FUNCTION PROGRAMMED Anti-coagulant(s): ??Aspirin 81 mg daily, Brilinta 90 mg twice daily Anti-arrhythmic(s): ??Amiodarone 200 mg daily, Toprol-XL 50 mg daily Plan: 1) normal Ji BiV ICD evaluation 2) will see the patient back in the office for device and wound check in approximately 1 month. 3) the patient will be scheduled for AV node ablation within the next couple weeks. Jose Hutchinson R.N. Zane Lopez MD [facility] PROCEDU RES Final Result documented in this encounter Visit Diagnoses Diagnosis Ischemic cardiomyopathy Other specified forms of chronic ischemic heart disease Automatic implantable cardiac defibrillator in situ documented in this encounter Care Teams Gas Meter Checker Relationship Specialty Start Date End Date Lopatin, Tao D., MD [address] [place], [place] [address] PCP - General 12/18/11 Victor M Barnes MD [address] [place] [address] Consulting Physician Cardiology 05/16/21 Zane Lopez MD [address] [place], [place] [address] Consulting Physician Electrophysiology 05/16/21 Miscellaneous, Not In File 05/23/21 documented as of this encounter
--- OUTSIDE RECORDS SUMMARY | 2024-07-30 20:17 | XMS_ITS | Encounter Summary ---
Author Organization [facility] Address [address] [place] [address] Care Team Providers Care Appraiser Art Name Role Phone Tao Jeffers MD Primary Care Provider Victor M Barnes MD Unavailable [phone] Zane Lopez MD Unavailable [phone] Miscellaneous, Not In File Unavailable Unava ilable Encounter Details Date Type Department Care Team (Late st Contact Info) Description 06/06/2021 Telephone [facility] Cardiology [address] [place] [address] Victor M Barnes MD [address] [id number] Social History Tobacco Use Types Packs/Day Years Used Date Smoking Tobacco: Former Smokeless Tobacco: Never Sex and Gender Information Value Date Recorded Sex Assigned at Not on file 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 He has his ablation next Thursday. He will call back soon to sched a f/u appt. His this past week and he can not make any more appts at this time. I told the pt I would pass this on to Yuko. Will send to Yuko as FYI CONTROLLED MACHINE STITCHER * Telephone Encounter - Stephanie Gage Dasilva - 06/06/2021 11:53 AM CST Pt requesting a call from nurse Huntley.No details given at this time.Thank you Contact:[phone] CONTROLLED MACHINE STITCHER documented in this encounter Plan of Treatment Not on file documented as of this encounter Visit Diagnoses Not on filedocumented in this encounter Care Teams Appraiser Art Relationship Specialty Start Date End Date Tao Jeffers MD [address] [place], [place] [address] PCP - General 12/18/11 Victor M Barnes MD [address] [place] [id number] Consulting Physician Cardiology 05/16/21 Zane Lopez MD [address] [place], [place] [id number] Consulting Physician Electrophysiology 05/16/21 Miscellaneous, Not In File 05/23/21 documented as of this encounter
--- OUTSIDE RECORDS SUMMARY | 2024-07-30 20:17 | XMS_ITS | Encounter Summary ---
Author Organization [facility] Address [address] [place] [address] Care Team Providers Care Cardroom Manager Name Role Phone Tao Jeffers MD Primary Care Provider Victor M Barnes MD Unavailable Zane Lopez MD Unavailable [phone] Miscellaneous, Not In File Unavailable Unava ilable Encounter Details Date Type Department Care Team (Late st Contact Info) Description 06/07/[address] 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 This morning the outer bottom side of his foot is black and blue and swollen. Pt said he took some tylenol and it has helped with the discomfort. Pt said his foot is swollen and feels tight when he tries tomove it. Pt is concerned he may have a blood clot but says he didn't think that was possible since he is already on blood thinners. Told pt it sounds like he sprain or strained his ankle/foot when hegot up out of the chair and since the swelling is only on the left foot and the fact that he is on blood thinners it is unlikely that this is a blood clot. Advised pt to elevate, ice and rest his ankle today, to continue to use the tylenol for discomfort and to contact his PCP if he is still concerned. Pt appreciated the callback and verbalized understanding. ACIC SURGEON * Telephone Encounter - Rita Lynch - 06/07/2021 8:14 AM CST Patient called back regarding the message regardingt his left ankle that is swollen, he wants to know what he should do ACIC SURGEON * Telephone Encounter - Sejal Bearden - 06/07/2021 7:18 AM CST Aditi [phone] from outside exchange called and stated the pt called this morning with symptoms of his left ankle is swollen and is black & blue colored. Pt stated he has an upcoming Ablation scheduled for Thursday. Pt stated he had a pacemaker put in a couple weeks ago. ACIC SURGEON documented in this encounter Plan of Treatment Not on file documented as of this encounter Visit Diagnoses Not on filedocumented in this encounter Care Teams Cardroom Manager Relationship Specialty Start Date End Date Tao Jeffers MD [address] [place] [address] PCP - General 12/18/11 Victor M Barnes MD [address] [place] [address] Consulting Physician Cardiology 05/16/21 Zane Lopez MD [address] [place] [address] Consulting Physician Electrophysiology 05/16/21 Miscellaneous, Not In File 05/23/21 documented as of this encounter
--- OUTSIDE RECORDS SUMMARY | 2024-07-30 20:17 | XMS_ITS | Encounter Summary ---
Author Organization [facility] Address [address] [place] [address] Care Team Providers Care Landscape Account Manager Name Role Phone Tao Jeffers MD Primary Care Provider [phone] Victor M Barnes MD Unavailable Zane Lopez MD Unavailable Encounter Details Date Type Department Care Team (Late st Contact Info) Description 05/16/2021 Telephone [facility] Cardiology [address] [place] [address] Victor M Barnes MD [address] [address] Social History Tobacco Use Types Packs/Day Years Used Date Smoking Tobacco: Former Smokeless Tobacco: Never Sex and Gender Information Value Date Recorded Sex Assigned at Not on file 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 Per AD-sending Rx in for losartan 25mg daily. Pt verbalized understanding. Will forward to AD as FYI. * Telephone Encounter - Lena John - 05/17/2021 8:56 AM CDT Pt returning ANTHONY Huntley call. Contact: * Telephone Encounter - Yuko Burden RN - 05/17/2021 8:34 AM CDT LM on for pt to callback. * Telephone Encounter - Yuko Burden RN - 05/16/2021 4:28 PM CDT Spoke with pt, [place] [employer] [facility] and asked that I call him back in 30 minutes. Told pt I may not be here then but I would be happy to call him in the am-he said that was fine and to please call after [phone]. * Telephone Encounter - Lena John - 05/16/2021 2:33 PM CDT Pt requesting call from ANTHONY Huntley. Did not want to leave any details. Contact: documented in this encounter Plan of Treatment Not on file documented as of this encounter Visit Diagnoses Not on filedocumented in this encounter Discontinued Medications Medication Sig Discontinue Reason Start Date End Da te sacubitriL-valsartan (ENTRESTO) 24-26 mg tabletIndications:chroni c heart failure Take 1 tablet by mouth 2 (two) times a day 05/13/2021 05/17/2021 documented as of this encounter Care Teams Landscape Account Manager Relationship Specialty Start Date End Date Tao Jeffers MD [address] [place] [address] PCP - General 12/18/11 Victor M Barnes MD [address] [place], [place] [address] Consulting Physician Cardiology 05/16/21 Zane Lopez MD [address] [place], [place] [address] Consulting Physician Electrophysiology 05/16/21 documented as of this encounter
--- OUTSIDE RECORDS SUMMARY | 2024-07-30 20:17 | XMS_ITS | Encounter Summary ---
Author Organization [facility] Medical Group Address [address] [facility] [address] [place] [address] Care Team Providers Care Manager Scheduling Name Role Phone Tao Jeffers MD Primary Care Provider [phone] Reason for Referral * Diagnostic Imaging (Routine) - Closed Specialty Diagnoses / Procedures Referred By Contalisia t Referred To Contact Diagnoses Persistent atrial fibrillation (HCC) Procedures NM MPI SPECT (Rest and/or Stress) Multiple Studies Jennifer Chao NP [address] [facility] [address] [address] Phone: tel: fax: [facility] Medical Group Referral ID Status Reason Start Date Expiration Date Visits Re quested Visits Authorized [id number] Closed 02/18/2021 04/04/2021 1 1 Reason for Visit * Reason Comments Follow-up CV * Consultation (Routine) - Closed Specialty Diagnoses / Procedures Referred By Contac t Referred To Contact Cardiology Diagnoses Atrial fibrillation, unspecified type (HCC) Tao Jeffers MD [address] [place] [address] Phone: tel: fax: [facility] Medical [facility] Cardiology [address] [facility] [address] [address] Phone: tel: fax: Referral ID Status Reason Start Date Expiration Date V isits Requested Visits Authorized [id number] Closed Specialty Services Required 01/11/2021 07/10/2021 3 3 Encounter Details Date Type Department Care Team (Late st Contact Info) Description 02/11/2021 8:30 AM CDT Office Visit [facility] Cardiology [address] [place] [phone] Jennifer Chao NP [address] [facility] [address] [address] Persistent atrial fibrillation (HCC) (Primary Dx); History of cardioversion; On amiodarone therapy; Chronic anticoagulation; Tachycardia induced cardiomyopathy (CMS/HCC) (HCC); Coronary artery disease involving [place] coronary artery of [place] heart without angina pectoris; At risk for sleep apnea Social History Tobacco Use Types Packs/Day Years Used Date Smoking Tobacco: Former Smokeless Tobacco: Never Sex and Gender Information Value Date Recorded Sex Assigned at Not on file 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 Gender Identity Not on file Sexual Orientation Not on file documented as of this encounter Last Filed Vital Signs Vital Sign Reading Time Taken Comments Blood Pressure 132/82 02/11/2021 8:11 AM CDT Pulse 102 02/11/2021 8:11 AM CDT Temperature - - Respiratory Rate - - Oxygen Saturation 99% 02/11/2021 8:11 AM CDT Inhaled Oxygen Concentration - - Weight 80.7 kg (178 lb) 02/11/2021 8:11 AM CDT Height 180.3 cm (5' 11 ) 02/11/2021 8:11 AM CDT Body Mass Index 24.83 02/11/2021 8:11 AM CDT documented in this encounter Progress Notes * Jennifer Chao NP - 02/11/2021 8:30 AM CDT Images from the original note were not included. [facility] Medical [facility] Cardiology [address] [address] Date of Visit: 02/11/2021 Patient ID: Lm Jimenez [id number] Chief Complaint: [...] required hospitalization and appendectomy. He presented to [facility] on 01/01/2021 under the advice of [...] loaded on amiodarone. 01/18/21 Hospital follow-up with MARJORIE - Lm Jimenez comes to the office [...] a day and feels fine doing this. 12-lead ECG performed in the office today was reviewed by me personally and showed atrial fibrillation with variable ventricular response, rate 92 beats per minute, QTC 475 MS Records that I personally reviewed on the day of this visit include: (the interpretation is outlined in the HPI above) 01/18/2021 office note from myself. Today's ECG. I have also reviewed: allergies, current medications, past family history, past medical history, past social history, past surgical history and problem list Review of Systems Constitutional: Negative for diaphoresis, fever, malaise/fatigue, weight gain and weight loss. HENT: Negative for hearing loss. Eyes: Negative for visual disturbance. Cardiovascular: Negative for chest pain, claudication, dyspnea on exertion, leg swelling, orthopnea, palpitations, paroxysmal nocturnal dyspnea and syncope. Respiratory: Positive for cough and snoring. Negative for hemoptysis, shortness of breath and wheezing. Hematologic/Lymphatic: Does not bruise/bleed easily. Skin: Negative for poor wound healing and rash. Musculoskeletal: Negative for joint pain and myalgias. Gastrointestinal: Negative for heartburn, nausea and vomiting. Genitourinary: Negative for hematuria. Neurological: Negative for dizziness, headaches and light-headedness. Psychiatric/Behavioral: Negative for depression. The patient is not nervous/anxious. Vital Signs: BP 132/82 (BP Location: Left arm, Patient Position: Sitting) Pulse 102 Ht 180.3 cm (5' 11 ) Wt 80.7 kg (178 lb) SpO2 99% BMI 24.83 kg/m?? Physical Exam Constitutional: General: He is not in acute distress. Appearance: He is well-developed. HENT: Head: Normocephalic and atraumatic. Nose: Comments: Wearing a mask Eyes: General: No scleral icterus. Conjunctiva/sclera: Conjunctivae normal. Pupils: Pupils are equal, round, and reactive to light. Comments: Right ptosis Neck: Vascular: No JVD. Trachea: No tracheal deviation. Cardiovascular: Rate and Rhythm: Normal rate. Rhythm irregular. Heart sounds: Normal heart sounds. No murmur heard. Pulmonary: Effort: Pulmonary effort is normal. No respiratory distress. Breath sounds: Normal breath sounds. Abdominal: General: Bowel sounds are normal. Palpations: Abdomen is soft. Tenderness: There is no abdominal tenderness. Skin: General: Skin is warm and dry. [...] by mouth daily, Disp: , Rfl: ??? polyethylene glycol (MIRALAX) 17 gram packet, [...] function, moderate LAE, severe DELMAR, moderate MR, kmyn-de-pjqvjfrq TR, PASP 29 mmHg, small pericardial effusion 01/03/2021 transesophageal echocardiogram: Moderate to severe LV systolic dysfunction with EF estimated 30-35%, no intracardiac thrombus, mild to moderate MR, moderate LAE, severe DELMAR, small pericardial effusion. 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 For now we will continue with amiodarone for rate control. Rate control currently is fair. I advised him to keep checking heart rate at home and ifthe majority of the heart rates remain 90 or above, we should restart metoprolol succinate at 50 mgdaily and up titrate if needed. At the next visit, I will discuss amiodarone toxicity monitoring with him. He is tolerating anticoagulation with Eliquis. He was found to have a cardiomyopathy when he was diagnosed with his AFib. He appears euvolemic andis currently not requiring any diuretic therapy. He has a history of coronary artery disease with remote PCI. He remains on a statin and his LDL is at goal. With a new diagnosis of AFib, I explained the indication for a new ischemic evaluation and the patient agrees. We will schedule a Lexiscan nuclear stress test at a convenient time for him in the next few weeks. Explained the relationship between untreated sleep apnea and atrial fibrillation and the indicationfor a sleep study. The patient does not want to proceed with a sleep study at this time. Return to the office to see me 8 weeks after cardioversion and and keep the previously scheduled appointment with Dr. Barnes in April. Call us sooner with questions or concerns. KITTY Bolanos- Nurse Practitioner with [facility] Cardiology This note is dictated and transcribed using [employer] Software. Television Announcer variancesmay occur. Despite proofreading, typographical errors may occur. documented in this encounter Miscellaneous Notes * Addendum Note - Perry Jarvis MA - 02/11/2021 8:30 AM CDTAddended by: PERRY JARVIS on: 02/11/2021 06:36 PM Modules accepted: Orders documented in this encounter Plan of Treatment Not on file documented as of this encounter Procedures Procedure Name Priority Date/Time Associated Diagnosis Comments NM MPI SPECT (REST AND/OR STRESS) MULTIPLE STUDIES Schedule Routine, Read Routine (OP Routine) 03/06/2021 9:18 AM CDT Persistent atrial fibrillation (HCC) ECG 12-LEAD Routine 02/11/2021 Persistent atrial fibrillation (HCC) On amiodarone therapy documented in this encounter Results * NM MPI SPECT (Rest and/or Stress) Multiple Studies (03/06/2021 9:18 AM CDT) Anatomical Region Laterality Modality Body N/A Nuclear Medicine 03/06/2021 8:54 AM CDT Narrative 03/06/2021 7:10 PM CDT [facility] Medical [facility] Cardiology [address] [facility] [address] [address] [address] [facility] [address], [place] [address] P:[phone] P:[phone] MPI Imaging Report Patient Name: LM JIMENEZ L : 1940 Study Date: 03/06/2021 8:54:04 AM Gender: M Tech: [facility]AT [facility] Location: [place] Ref.Provider: JENNIFER CHAO Height(Cm): 180.3 BSA: Weight(Kg): 80.7 BMI: 24.82Order Provider: JENNIFER CHAO Physician: Referring Physician: Dr. Jeffers. HCG Physician: Сергей Barnes M.D. Interpreting Physician: Сергей Barnes M.D. Stress Supervision: Debbie Jerez M.D., F.A.C.C. Procedures: Myocardial perfusion imaging with Tc99M Sestamibi SPECT at rest and stress post regadenoson (Lexiscan) infusion. Indications: Atrial Fibrillation, Hypertension, Family Hx CAD, High Cholesterol, and Former Smoker. Findings: Procedural Findings: One day rest/stress was used. Tc99m Sestamibi injected IV at rest was 11.0 millicuries. 32.5 millicuries of Tc99M Sestamibi injected IV during Lexiscan stress. Lexiscan 0.4mg administered IV over 10 seconds. Patient had no symptoms during stress test. Baseline heart rate was 94 BPM. Maximum Heart Rate Achieved was: 118 BPM. Baseline blood pressure was 150/84 mmHg. Post Stress Blood Pressure was 138/80 mmHg. Termination: Protocol complete. Resting ECG: Atrial fibrillation with RVR, heart rate 94-119 at rest. Post ECG: No diagnostic ST changes. Arrhythmia: No arrhythmias seen. Perfusion Findings: Probably normal perfusion imaging. Technical quality of study is excellent. Prone imaging was not performed. Left ventricle cavity size at rest is moderately enlarged. Left ventricle cavity size with stress is unchanged. A TID of 1.04 was automatically calculated. defect 1: Size is small. Severity is mild. Location of defect is in the basal inferoseptal segment, mid inferoseptal segment, mid inferior segment and apical inferior segment. Reversibility is not present, defect is fixed although improved at stress compared to rest. Type of defect is most likely attenuation artifact. Artifact due to diaphragmatic attenuation. LV Function: Left ventricular ejection fraction is 34 %. There is moderate to severe LV dysfunction. Conclusions: Atrial fibrillation with RVR, heart rate [...] Clinical correlation advised. Recommend follow up with automatic outsole cutter. Negative EKG portion of stress test. Electronically Signed By: Сергей Barnes MD 2021-03-06 17:07:09 CDT Electronically Signed By: Debbie Jerez MD, [facility] 2021-03-06 19:10:48 CDT Procedure Note Debbie Jerez MD - 03/06/2021 [facility] Medical Group Cardiology [address] [facility] [address] [place] [address] [address], [place] [address] P:[phone] P:[phone] MPI Imaging Report Patient Name: LM JIMENEZ LPatient ID: [id number] : [id number] Date: 03/06/2021 8:54:04 AM Gender: MAccession #: [id number] [facility] [place] Ref.Provider: JENNIFER CHAOHeight(Cm): 180.3 BSA: Weight(Kg): 80.7 BMI: 24.82Order Provider: JENNIFER CHAO Physician: Referring Physician: Dr. Jeffers. HCG Physician: Сергей Barnes M.D. Interpreting Physician: Сергйе Barnes M.D. Stress Supervision: Debbie Jerez M.D., F.A.C.C. Procedures: Myocardial perfusion imaging with Tc99M Sestamibi SPECT at rest and stresspost regadenoson (Lexiscan) infusion. Indications: Atrial Fibrillation, Hypertension, Family Hx CAD, High Cholesterol, andFormer Smoker. Findings: Procedural Findings: One day rest/stress was used. Tc99m Sestamibi injected IV at rest was 11.0millicuries. 32.5 millicuries of Tc99M Sestamibi injected IV during Lexiscan stress.Lexiscan 0.4mg administered IV over 10 seconds. Patient had no symptoms during stresstest. Baseline heart rate was 94 BPM. Maximum Heart Rate Achieved was: 118 BPM. Baselineblood pressure was 150/84 mmHg. Post Stress Blood Pressure was 138/80 mmHg. Termination: Protocol complete. Resting ECG: Atrial fibrillation with RVR, heart rate 94-119 at rest. Post ECG: No diagnostic ST changes. Arrhythmia: No arrhythmias seen. Perfusion Findings: Probably normal perfusion imaging. Technical quality of study isexcellent. Prone imaging was not performed. Left ventricle cavity size at rest is moderatelyenlarged. Left ventricle cavity size with stress is unchanged. A TID of 1.04 wasautomatically calculated. defect 1: Size is small. Severity is mild. Location of defect is in the basalinferoseptal segment, mid inferoseptal segment, mid inferior segment and apical inferiorsegment. Reversibility is not present, defect is fixed although improved at stress compared torest. Type of defect is most likely attenuation artifact. Artifact due to diaphragmaticattenuation. LV Function: Left ventricular ejection fraction is 34 %. There is moderate to severe LVdysfunction. Conclusions: Atrial fibrillation with RVR, heart rate 94-119 at rest. Left ventricular ejection fraction is 34 %. There is moderate to severe LVdysfunction. Myocardial perfusion imaging is probably normal. However, given LVsystolic dysfunction with moderate LV enlargement balanced ischemia due to multivessel CADcannot be excluded. Of note, there is no significant transient ischemic dilatation (TID)present which would strongly support multivessel CAD. Clinical correlation advised. Recommend follow up with automatic outsole cutter. Negative EKG portion of stress test. 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 cetirizine (ZyrTEC) 10 mg tablet Take 1 tablet (10 mg total) by mouth daily added in this encounter Care Teams Manager Scheduling Relationship Specialty Start Date End Date Tao Jeffers MD [address] [place] [address] [place] [address] PCP - General 12/18/11 documented as of this encounter
--- OUTSIDE RECORDS SUMMARY | 2024-07-30 20:17 | XMS_ITS | Encounter Summary ---
Author Organization [facility] Address [address] [facility] [address] [place] [address] Care Team Providers Care Plastering Supervisor Name Role Phone Tao Jeffers MD Primary Care Provider Encounter Details Date Type Department Care Team (Late st Contact Info) Description 01/21/2021 Orders Only [facility] Cardiology [address] [place] [address] ProviderSuzie MD [address] [place] [phone] Social History Tobacco Use Types Packs/Day Years Used Date Smoking Tobacco: Former Smokeless Tobacco: Never Sex and Gender Information Value Date Recorded Sex Assigned at Not on file 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 Gender Identity Not on file Sexual Orientation Not on file documented as of this encounter Plan of Treatment Not on file documented as of this encounter Procedures Procedure Name Priority Date/Time Associated Diagnosis Comments LIPID PANEL Routine 01/03/2021 4:16 AM CDT documented in this encounter Results * (ABNORMAL) Lipid panel (01/03/2021 4:16 AM CDT) SCRIBED Cholesterol, Total 105 0 - 200 EXTERNAL LAB SCRIBED HDL 33(A) 40 - 100 EXTERNAL LAB SCRIBED LDL 53 0 - 100 EXTERNAL LAB SCRIBED Triglycerides 48 0 - 150 EXTERNAL LAB Blood specimen (specimen) Historical Provider LAB BLOOD ORDERABLES Edit ed Result - Final EXTERNAL LAB documented in this encounter Visit Diagnoses Not on filedocumented in this encounter Care Teams Plastering Supervisor Relationship Specialty Start Date End Date Tao Jeffers MD [address] [place] [address] PCP - General 12/18/11 documented as of this encounter
--- OUTSIDE RECORDS SUMMARY | 2024-07-30 20:17 | XMS_ITS | Encounter Summary ---
Author Organization [facility] Address [address] [facility] [address] [place] [address] Care Team Providers Care Stitcher Operator Name Role Phone Tao Jeffers MD Primary Care Provider [phone] Encounter Details Date Type Department Care Team (Late st Contact Info) Description 05/10/2021 Telephone Arrhythmia Center [address] [facility] [address] [place] [address] Zane Lopez MD [address] [facility] [address] [place] [address] Social History Tobacco Use Types Packs/Day Years Used Date Smoking Tobacco: Former Smokeless Tobacco: Never Sex and Gender Information Value Date Recorded Sex Assigned at Not on file 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 Address and phone # given. desk pen set assembler notified of need for insurance referral. * Telephone Encounter - Sumaya Smith MA - 05/10/2021 1:13 PM CDT ----- Message from Zane Lopez MD sent at 05/10/2021 12:11 PM CDT ----- Sumaya Can you get this patient an appointment with me within a week. Okay to overbook. Dr. Barnes called. 80-year-old man with history of CAD and PCI. He has atrial fibrillation with rapid ventricular rate. He had SANDRA cardioversion with success but early recurrence He is placed on amiodarone and later had another SANDRA cardioversion after about 1 month of amiodarone. Successful but early recurrence. Rates controlled but patient has severely symptomatic. He also had recent PCI-- due to LV dysfunction cardiac catheterization was performed and showed CADand he had PCI Dr. 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
--- OUTSIDE RECORDS SUMMARY | 2024-07-30 20:17 | XMS_ITS | Encounter Summary ---
Author Organization [facility] Address [address] [facility] [address] [place] [address] Care Team Providers Care Calliope Player Name Role Phone Tao Jeffers MD Primary Care Provider [phone] Victor M Barnes MD Unavailable [phone] Zane Lopez MD Unavailable [phone] Miscellaneous, Not In File Unavailable Unava ilable Reason for Referral * Cardiology (Routine) - Closed Specialty Diagnoses / Procedures Referred By Contac t Referred To Contact Diagnoses Ischemic cardiomyopathy Procedures DEVICE CHECK - REMOTE Zane Lopez MD [address] [place] [address] Phone: tel: fax: [facility] Referral ID Status Reason Start Date Expiration Date Visits Re quested Visits Authorized [id number] Closed 05/24/2021 06/23/2022 1 1 * Cardiology (Routine) - Closed Specialty Diagnoses / Procedures Referred By Contac t Referred To Contact Diagnoses Ischemic cardiomyopathy Procedures DEVICE CHECK - REMOTE Zane Lopez MD [address] [place] [address] Phone: tel: fax: [facility] Referral ID Status Reason Start Date Expiration Date Visits Re quested Visits Authorized [id number] Closed 05/24/2021 06/23/2022 1 1 * Cardiology (Routine) - Closed Specialty Diagnoses / Procedures Referred By Contac t Referred To Contact Diagnoses Ischemic cardiomyopathy Procedures DEVICE CHECK - REMOTE Zane Lopez MD [address] [place] [address] Phone: tel: fax: [facility] Referral ID Status Reason Start Date Expiration Date Visits Re quested Visits Authorized [id number] Closed 05/24/2021 06/23/2022 1 1 * Cardiology (Routine) - Closed Specialty Diagnoses / Procedures Referred By Contalisia t Referred To Contact Diagnoses Ischemic cardiomyopathy Procedures DEVICE CHECK - REMOTE Zane Lopez MD [address] [place] [address] Phone: tel: fax: [facility] Referral ID Status Reason Start Date Expiration Date Visits Re quested Visits Authorized [id number] Closed 05/24/2021 06/23/2022 1 1 * Cardiology (Routine) - Closed Specialty Diagnoses / Procedures Referred By Contalisia t Referred To Contact Diagnoses Ischemic cardiomyopathy Procedures DEVICE CHECK - IN OFFICE Zane Lopez MD [address] [place] [address] Phone: tel: fax: [facility] Referral ID Status Reason Start Date Expiration Date Visits Re quested Visits Authorized [id number] Closed 05/24/2021 06/23/2022 1 1 Encounter Details Date Type Department Care Team (Late st Contact Info) Description 05/24/2021 Orders Only [facility] [address] [facility] [address] [place] [address] Zane Lopez MD [address] [facility] [address] [place] [address] Ischemic cardiomyopathy (Primary Dx) Social History Tobacco Use Types Packs/Day Years Used Date Smoking Tobacco: Former Smokeless Tobacco: Never Sex and Gender Information Value Date Recorded Sex Assigned at Not on file Legal Sex Male 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 Jose Hutchinson, Zachary. Zane Lopez MD CV CARDIAC SERVICES PROCEDU RES Final Result * DEVICE CHECK - REMOTE (11/25/2021 11:07 [...] CARDIAC SERVICES PROCEDU RES Final Result * DEVICE CHECK - REMOTE (08/26/2021 11:14 AM BERRY GROWER) Anatomical Region Laterality Modality Other Narrative 08/30/2021 1:58 PM BERRY GROWER This patient received a Ji BiV ICD. [...] scheduled in 3 months. Ayla Colon R.N us Zane Lopez MD CV CARDIAC SERVICES PROCEDU RES Final Result * DEVICE CHECK - IN OFFICE (05/30/2021 [...] 9.0 seconds Episodes last 90 days/Comments: AF Cameron 100 %, patient is in chronic atrial [...] ablation within the next couple weeks. Jose Biermann, R.N. Zane Lopez MD [facility] CARDIAC SERVICES PROCEDU RES Final Result documented in this encounter Visit Diagnoses Diagnosis Ischemic cardiomyopathy- Primary Other specified forms of chronic ischemic heart disease Ischemic cardiomyopathy Other specified forms of chronic ischemic heart disease Automatic implantable cardiac defibrillator in situ Ischemic cardiomyopathy Other specified forms of chronic ischemic heart disease 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 Ischemic cardiomyopathy Other specified forms of chronic ischemic heart disease 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 Ischemic cardiomyopathy Other specified forms of chronic ischemic heart disease 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 Ischemic cardiomyopathy Other specified forms of chronic ischemic heart disease 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 documented in this encounter Care Teams Calliope Player Relationship Specialty Start Date End Date Tao Jeffers MD [address] [place] [address] PCP - General 12/18/11 Victor M Barnes MD [address] [place], [place] [id number] Consulting Physician Cardiology 05/16/21 Zane Lopez MD [address] [place], [place] [address] Consulting Physician Electrophysiology 05/16/21 Miscellaneous, Not In File 05/23/21 documented as of this encounter
--- OUTSIDE RECORDS SUMMARY | 2024-07-30 20:17 | XMS_ITS | Encounter Summary ---
Author Organization [facility] Address [address] [place] [address] Care Team Providers Care Tool And Die Engineer Name Role Phone Tao Jeffers MD Primary Care Provider [phone] Victor M Barnes MD Unavailable [phone] Zane Lopez MD Unavailable [phone] Miscellaneous, Not In File Unavailable Unava ilable Encounter Details Date Type Department Care Team (Late st Contact Info) Description 05/23/2021 2:09 PM CDT Anesthesia Event [facility] Electrophysiology Lab [address] [place] [address] Pardeep Cohen MD [address] [place] [address] Robby Sarabia MD [address] [place], [place] [id number] Anesthesia Record Procedure Summary Procedure Name Responsible Anesthesiologist Anesthesia Start Time Anesthesia Stop Time INSERT/REPLACE IMPLANTABLE CARDIOVERTER-DEFIBRIL LATOR (ICD) DUAL CHAMBER SYSTEM 47482 Pardeep Cohen MD 05/23/21 1409 05/23/21 1642 Events Date Time Event Comment 05/23/2021 1348 1409 An Start 1409 An Start Data 1409 An Induction The patient was reevaluated immediately before moderate or deep sedation use and before anesthesia induction. 1457 Local injected by surgeon 1633 an stop data 1642 Handoff to RN I completed my handoff [...] Patient disposition at the time of handoff: phase II 1642 An Stop 1645 Release from care Meds Name Total fentaNYL 100 mcg propofol 514.26 mg phenylephrine 100 mcg/mL 900 mcg ceFAZolin (ANCEF) 2,000 mg/20 mL in ster ile water (premix) 2,000 mg 2,000 mg phenylephrine (PAMELA-SYNEPHRIN E) 25,000 mcg in sodium chloride 0.9% 250 mL (100 mcg/mL) infusion 2.79 mg sodium chloride 0.9% infusion 600 mL * Agents Name O2 * Blood No blood administrations on file. 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 Gender Identity Not on file Sexual Orientation Not on file documented as of this encounter OR Notes * Anesthesia Postprocedure Evaluation - Jessica Charles CRNA - 05/23/2021 4:45 PM CDT Patient: Lm Jimenez Procedure Summary Date: 05/23/21 Room / Location: [facility] / [facility] Anesthesia Start: 140 Anesthesia Stop: 1641 Procedures: INSERT/REPLACE IMPLANTABLE CARDIOVERTER-DEFIBRILLATOR (ICD) DUAL CHAMBER SYSTEM 19195 (N/A ) INSERT LV LEAD W PACEMAKER (PPM) OR IMPLANTABLE CARDIOVERTER-DEFIBRILLATOR (ICD) PLACEMENT (+) 22347 (N/A ) Diagnosis: Paroxysmal atrial fibrillation (CMS/HCC) (HCC) (Paroxysmal atrial fibrillation (CMS/HCC) (HCC) [I48.0]) Providers: Zane Lopez MD Responsible Provider: Pardeep Cohen MD Anesthesia Type: general/TIVA ASA Status: 4 Anesthesia Type: general/TIVA Last vitals BP 98/68 Pulse 68 Resp 16 SpO2 92% Anesthesia Post Evaluation Patient location: [facility] recovery area. Patient participation: complete - patient participated Level of consciousness: arouses economics teacher and follows simple commands Pain management: adequate Airway patency: adequate Cardiovascular status: acceptable Respiratory status: acceptable Hydration status: acceptable Pt is: normothermic Nausea/Vomiting status: none No complications documented. * Anesthesia Preprocedure Evaluation - Robby Sarabia MD - 05/23/2021 12:02 PM CDT Images from the original note were not included. Anesthesia Evaluation Lm Jimenez is a 80 y.o. male with a past medical history of coronary artery disease s/p PCI in 1999, HTN, colon cancer in 2003, cataracts, BPH, pneumonia a few years ago which required hospitalization and appendectomy. Procedure(s): INSERT/REPLACE IMPLANTABLE CARDIOVERTER-DEFIBRILLATOR (ICD) DUAL CHAMBER SYSTEM 69674 INSERT LV LEAD W PACEMAKER (PPM) OR IMPLANTABLE CARDIOVERTER-DEFIBRILLATOR (ICD) PLACEMENT (+) [id number] Pre-Op Diagnosis Codes: * Paroxysmal atrial fibrillation (CMS/HCC) (HCC) [I48.0] Zivix COVID-19 Vaccine (Pfizer SARS-CoV-2 Vaccination) 10/23/2020, 10/02/2020 [facility] 05/20/21 NPO Status Date of Last Liquid: 05/22/21 Time of Last Liquid: 0000 Date of Last Solid: 05/22/21 Time of Last Solid: 0000 Last dose Eliquis 05/22 AM, Dr. Lopez aware. Last dose Brillinta today HISTORY Past Medical History Cardiovascular + Hypertension + Hyperlipidemia + CAD + Unknown stent(s) type - Prior stent(s) date: 1999. + CHF CHF Etiology: ischemic. LVEF: 20-30%. + Atrial fibrillation/flutter - PRIOR ELECTRICAL CARDIOVERSION. Current Rhythm: atrial fibrillation. Rhythm type: persistent (one or more episodes > 7 days). Endocrine / Other + Cancer history- in [...] Clinical correlation advised. Recommend follow up with towing pilot. Negative EKG portion of stress test. Electronically Signed By: Сергей Barnes MD 2021-03-06 17:07:09 CDT Patient Active Problem List Diagnosis ??? Paroxysmal atrial fibrillation (CMS/HCC) (HCC) ??? Coronary artery disease involving conf[place] sal[place] coronary artery of confed[place] salish heart without angina pectoris ??? Cardiomyopathy (HCC) ??? At risk for amiodarone toxicity with shelter use ??? Mixed dyslipidemia ??? HTN (hypertension), [...] ??? Wheat Itching Takes Zyrtec for it Med List Status: Nurse Complete Set By: Dianne Angela RN at 05/23/2021 12:56 PM Taking? Last Dose Start Date End Date Provider amiodarone (PACERONE) 200 mg tablet 05/23/2021 01/11/21 07/10/21 Victor M Barnes MD Take 1 tablet (200 mg total) by mouth daily Load amiodarone 400 m times a day x4 days, 2 times a day x4 days, then daily for 2 weeks. Then 200 mg daily thereafter. Notes: Load amiodarone 400 mg: t.i.d. x4 days, b.i.d. x4 days, then daily for 2 weeks. Then 200 mg daily thereafter. aspirin 81 mg enteric coated tablet 05/22/2021 -- -- Suzie Sahu MD atorvastatin (LIPITOR) 80 mg tablet 05/23/2021 05/01/21 05/01/22 Victor M Barnes MD Take 1 tablet (80 mg total) by mouth daily Brilinta 90 mg tablet 05/23/2021 04/16/21 -- Suzie Sahu MD cetirizine (ZyrTEC) 10 mg tablet 05/22/2021 -- -- Suzie Sahu MD Eliquis 5 mg tablet 05/22/2021 05/13/21 -- Victor M Barnes MD Take 1 tablet (5 mg total) by mouth every 12 (twelve) hours losartan (COZAAR) 25 mg tablet 05/22/2021 05/17/21 05/17/22 Victor M Barnes MD Take 1 tablet (25 mg total) by mouth daily metoprolol XL (TOPROL-XL) 50 mg extended release tablet 05/22/2021 04/08/21 -- Yolie Chao NP Take 1 tablet (50 mg total) by mouth daily tamsulosin (FLOMAX) 0.4 mg extended release capsule 05/23/2021 01/03/21 -- Suzie Sahu MD Current Facility-Administered Medications: ??? ceFAZolin (ANCEF) 2,000 mg/20 mL in sterile water (premix) 2,000 mg, 2,000 mg, intravenous, Once ??? sodium chloride 0.9% flush 0.5-20 mL, [...] Types: Alcohol Comment: drinks alcohol very seldomly History reviewed. No pertinent family history. Vitals: 05/23/21 1259 BP: (!) 161/101 Pulse: 117 Resp: 22 SpO2: 97% PT: No results found for requested labs [...] Medical history, medications, and allergies reviewed. Attestation: This PAT evaluation 05/23/2021. Airway Exam: Mallampati: I Cervical ROM: FROM Cardiovascular Exam: Rate: regular Rhythm: regular Pulmonary Exam: LCTA, bilat Dental Exam: Appears intact Current state: Patient's current state is cooperative and interactive. Anesthesia Plan ASA 4 My patient is approved for the Anesthesia Controlled Medication protocol when under care of a BASS SINGER Planned anesthesia: General/TIVA Induction: Induction: intravenous. Postoperative [...] and agree to proceed. All questions answered. documented in this encounter Plan of Treatment Not on file documented as of this encounter Visit Diagnoses Not on filedocumented in this encounter Administered Medications Inactive Administered Medications - up to 3 most recent administrations Medication Order MAR Action Action Date Dose Rate Site ceFAZolin (ANCEF) 2,000 mg/20 mL in sterile water (premix) 2,000 mg 2,000 mg, intravenous, at 400 mL/hr, Administer over 3 Minutes, Once, On Anh 05/23/21 at 1230, For 1 dose, Pre-Procedure (CV), Administer within 60 minutes of incision., Indications: Prophylaxis, SurgicalIndications:Prophylaxis, Surgical Given 05/23/2021 2:15 PM CDT 2,000 mg fentaNYL (SUBLIMAZE) preservative free injection intravenous, As needed, Starting on Anh 05/23/21 at 1411, Anesthesia Intra-op Given 05/23/2021 2:25 PM CDT 25 mcg Given 05/23/2021 2:22 PM CDT 25 mcg Given 05/23/2021 2:15 PM CDT 25 mcg phenylephrine (PAMELA-SYNEPHRINE) 1 mg/10 mL (100 mcg/mL) in sodium chloride 0.9% (premix) intravenous, As needed, Starting on Anh 05/23/21 at 1442, Anesthesia Intra-op Given 05/23/2021 2:54 PM CDT 300 mc g Given 05/23/2021 2:51 PM CDT 200 mcg Given 05/23/2021 2:47 PM CDT 100 mcg phenylephrine (PAMELA-SYNEPHRINE) 25,000 mcg in sodium chloride 0.9% 250 mL (100 mcg/mL) infusion intravenous, Continuous PRN, Starting on Anh 05/23/21 at 1406, Anesthesia Intra-op Rate/Dose Change 05/23/2021 3:41 PM CDT 0.2 mcg/kg/min 9.252 mL/hr Rate/Dose Change 05/23/2021 2:54 PM CDT 0.4 mcg/kg/min 18. 504 mL/hr New Bag 05/23/2021 2:06 PM CDT 0.2 mcg/kg/min 9.252 mL/ hr propofoL (DIPRIVAN) 10 mg/mL IV intravenous, Continuous PRN, Starting on Anh 05/23/21 at 1415, Anesthesia Intra-op Rate/Dose Change 05/23/2021 3:04 PM CDT 50 mcg/kg/min 23.13 mL/hr Rate/Dose Change 05/23/2021 2:43 PM CDT 60 mcg/kg/min 27.7 56 mL/hr Rate/Dose Change 05/23/2021 2:31 PM CDT 75 mcg/kg/min 34.6 95 mL/hr sodium chloride 0.9% infusion 50 mL/hr, intravenous, Continuous, Starting on Anh 05/23/21 at 1230, Pre-Procedure (CV) New Bag 05/23/2021 3:22 PM CDT New Bag 05/23/2021 2:06 PM CDT documented in this encounter Care Teams Tool And Die Engineer Relationship Specialty Start Date End Date Tao Jeffers MD [address] [place] [address] PCP - General 12/18/11 Victor M Barnes MD [address] [place], [place] [id number] Consulting Physician Cardiology 05/16/21 Zane Lopez MD [address] [place] [address] Consulting Physician Electrophysiology 05/16/21 Miscellaneous, Not In File 05/23/21 documented as of this encounter
--- OUTSIDE RECORDS SUMMARY | 2024-07-30 20:17 | XMS_ITS | Encounter Summary ---
Author Organization [facility] Address [address] [facility] [address] [place] [address] Care Team Providers Care Product Development Intern Name Role Phone Tao Jeffers MD Primary Care Provider [phone] Encounter Details Date Type Department Care Team (Late st Contact Info) Description 05/03/2021 Telephone [facility] Cardiology [address] [place] [address] Victor M Barnes MD [address] [facility] [address] [place], [place] [id number] Social History Tobacco Use Types Packs/Day Years Used Date Smoking Tobacco: Former Smokeless Tobacco: Never Sex and Gender Information Value Date Recorded Sex Assigned at Not on file 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 Pt called his PCP today and he advised him to go to the ED to get evaluated for a PE. Pt said he doesn't want to go to the ED and asked what he should do. Pt said he is having some SOB but he is also d/t get cardioverted next week Thursday and he denies CP.Advised pt call PCP back and discuss and ask if getting a stat CT chest r/o PE would be an option as an OP today. Pt appreciated the callback. * Telephone Encounter - Yuko Burden RN - 05/03/2021 1:31 PM CDT LM on requesting callback. * Telephone Encounter - Natasha Coello MA - 05/03/2021 12:51 PM CDT Patient would like a call back to go over what his PCP discussed with him about his coughing. Patient did ask for Yuko documented in this encounter Plan of Treatment Not on file documented as of this encounter Visit Diagnoses Not on filedocumented in this encounter Care Teams Product Development Intern Relationship Specialty Start Date End Date Tao Jeffers MD [address] [place] [address] PCP - General 12/18/11 documented as of this encounter
--- OUTSIDE RECORDS SUMMARY | 2024-07-30 20:17 | XMS_ITS | Encounter Summary ---
Author Organization [facility] Address [address] [facility] [address] [place] [address] Care Team Providers Care Bench Technician Name Role Phone Tao Jeffers MD Primary Care Provider [phone] Encounter Details Date Type Department Care Team (Late st Contact Info) Description 04/16/2021 Orders Only [facility] Cardiology [address] [place] [address] Victor M Barnes MD [address] [facility] [address] [place] [address] Social History Tobacco Use Types Packs/Day Years Used Date Smoking Tobacco: Former Smokeless Tobacco: Never Sex and Gender Information Value Date Recorded Sex Assigned at Not on file 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 Gender Identity Not on file Sexual Orientation Not on file documented as of this encounter Plan of Treatment Not on file documented as of this encounter Procedures Procedure Name Priority Date/Time Associated Diagnosis Comments CARDIOLOGY DOCUMENT SCAN Routine 04/16/2021 documented in this encounter Results * SCAN - CARDIOLOGY (04/16/2021) Anatomical Region Laterality Modality Other Victor M Barnes MD [facility] CARDIAC SERVICES PROC EDURES Final Result documented in this encounter Visit Diagnoses Not on filedocumented in this encounter Care Teams Bench Technician Relationship Specialty Start Date End Date Tao Jeffers MD [address] [place] [address] PCP - General 12/18/11 documented as of this encounter
--- OUTSIDE RECORDS SUMMARY | 2024-07-30 20:17 | XMS_ITS | Encounter Summary ---
Author Organization [facility] Healthcare Address [address] [place] [address] Care Team Providers Care Safe Expert Name Role Phone Tao Jeffers MD Primary Care Provider [phone] Victor M Barnes MD Unavailable [phone] Zane Lopez MD Unavailable Miscellaneous, Not In File Unavailable Unava ilable Encounter Details Date Type Department Care Team (Latest Contact Info) Description 05/23/2021 1:45 PM CDT - 05/23/2021 4:50 PM CDT Surgery [facility] Electrophysiology Lab [address] [place] [address] Zane Lopez MD [address] [facility] [address], [place] [address] INSERT/REPLACE IMPLANTABLE CARDIOVERTER-DEFIBRI LLATOR (ICD) DUAL CHAMBER SYSTEM 49175 Surgery Details Date/Time Status Location OR Service Patient Class Case Class Case Type Trauma Case? 05/23/2021 1:45 PM Posted [facility] EP LAB EP D Cardiovascular Outpatient Elective Panel 1 Procedure LRB Anes Op Region Wound Class Comments INSERT/REPLACE IMPLANTABLE CARDIOVERTER-DEFIBRILLATOR (ICD) DUAL CHAMBER SYSTEM 06346 N/A Choice St [facility] INSERT LV LEAD W PACEMAKER ( PPM) OR IMPLANTABLE CARDIOVERTER-DEFIBRILLATOR (ICD) PLACEMENT (+) 75532 N/A Choice [facility] Len Surgeon Surgeon Role Service Panel Zane Lopez MD Primary Cardiovascular 1 Case Notes [facility]# [id number] / [id number]/DR. Lopez BIV ICD Implant/[facility] Len documented in this encounter Social History Tobacco Use Types Packs/Day Years Used Date Smoking Tobacco: Former Smokeless Tobacco: Never Sex and Gender Information Value Date Recorded Sex Assigned at Not on file Legal Sex Male 12:29 AM RISK MANAGEMENT ANALYST Gender Identity Not on file Sexual Orientation Not on file documented as of this encounter Last Filed Vital Signs Vital Sign Reading Time Taken Comments Blood Pressure 98/68 05/23/2021 4:44 PM CDT Pulse 68 05/23/2021 4:44 PM CDT Temperature - - Respiratory Rate 16 05/23/2021 4:4 4 PM CDT Oxygen Saturation 92% 05/23/2021 4:44 PM CDT Inhaled Oxygen Concentration - - Weight 77.1 kg (169 lb 14.4 oz) 021 12:59 PM CDT Height 180.3 cm (5' 11 ) 05/23/2021 12: 59 PM CDT Body Mass Index 23.7 05/23/2021 12:59 PM CDT documented in this encounter Discharge Instructions * Discharge Instructions* Bren Vazquez RN - 05/23/2021 5:43 PM CDT Cardiac Laboratory [facility] [place], [place] [address] [facility] Discharge Instructions---Implant MEDICATIONS [] Home Medications Returned [...] home diet [] Special diet Instructed by Pan Puller ACTIVITY You have been given medications which [...] Signature: Staff Signature/Title: Date and Time: Hold Abdullahi. Resume ThursdayMay 27 Pacer / Defibrillator Discharge [...] receive a temporary card from the device company. Carry this in your wallet until yourpermanent card arrives, usually in 6-8 weeks. ??? A monitor will be sent home with you, please read the instructions and labor supervisor the monitor. Additional Instructions ??? Extra Strength Tylenol may be taken every 6 hours as needed for pain. ??? You should avoid strong magnetic currents (large electrical generators, arc welding). You can operate any home electrical appliances including microwave ovens. ??? Notify the physician office at [phone], immediately if you develop abrupt dizziness or shortness of breath. If you feel there is an urgent matter, call 911 or go to the emergency room. ??? Call the office at [phone] with any questions or concerns. Call to schedule a follow-up appointment / wound check. This should be done in the first 7-10 days following your procedure. Zane Lopez MD, [facility] - Cardiac Entry Clerk Ceasar Rosas MD, MPH, [facility] - Cardiac Entry Clerk documented in this encounter Medications at Time [...] INSERT/REPLACE IMPLANTABLE CARDIOVERTER-DEFIBRILLATOR (ICD) DUAL CHAMBER SYSTEM 45490 INSERT LV LEAD W PACEMAKER (PPM) OR IMPLANTABLE CARDIOVERTER-DEFIBRILLATOR (ICD) PLACEMENT (+) [id number] Source Note - Zane Lopez MD - [...] Class 3. CAD status post PCI Plan: ORDER PICKER/ASSEMBLER ICD and AV node ablation. Will performed [...] pneumothorax. Electronically signed by: Neetu Giordano M.D. us Zane Lopez MD IMG XR PROCEDURES Final Res ult * ECG 12 lead (05/23/2021 4:53 PM CDT) 05/23/2021 4:53 PM CDT Narrative [facility] - 05/24/2021 11:20 AM CDT Vent Rate: 92 bpm RR Interval: 647 msec IN Interval: 0 msec QRS Duration: 104 msec QT Interval: 366 msec QTC Interval: 416 msec P-R-T [place]: 0 - 15 - -60 degrees ATRIAL FIBRILLATION MODERATE T-WAVE ABNORMALITY, CONSIDER ANTEROLATERAL ISCHEMIA ABNORMAL ECG Electronically Signed By: Lm Smallwood MD us Zane Lopez MD ECG ORDERABLES Final Resul t [facility] * ICD DC NEW, INSERTION OF BIV [...] 25%, and class 3 chronic systolic CHF, ORDER PICKER/ASSEMBLER ICD is recommended as part of the [...] Eliquis in 4 d Zane Lopez MD us Zane Lopez MD CV ELECTROPHYSIOLOGY PROCS Final Result * ECG 12 lead (05/23/2021 1:19 PM CDT) 05/23/2021 1:19 PM CDT Narrative [facility] - 05/23/2021 1:36 PM CDT Vent Rate: 109 bpm RR Interval: 546 msec IN Interval: 0 msec QRS Duration: 107 msec QT Interval: 359 msec QTC Interval: 423 msec P-R-T [place]: 0 - 42 - -30 degrees ATRIAL FIBRILLATION WITH RAPID VENTRICULAR RESPONSE NONSPECIFIC ST \T\ T-WAVE ABNORMALITY ABNORMAL ECG Electronically Signed By: Lm Woods DO, [facility] us Zane Lopez MD ECG ORDERABLES Final Resul t [facility] documented in this encounter Visit Diagnoses Diagnosis Paroxysmal atrial fibrillation (CMS/HCC) (HCC)- Primary Atrial fibrillation Paroxysmal atrial fibrillation (CMS/HCC) (HCC) Atrial fibrillation documented in this encounter Admitting Diagnoses Diagnosis Paroxysmal atrial fibrillation (CMS/HCC) (HCC) Atrial fibrillation documented in this encounter Administered Medications Inactive Administered Medications - up to 3 most recent administrations Medication Order MAR Action Action Date Dose Rate Site ioversoL (OPTIRAY 320) injection As needed, Starting on Anh 05/23/21 at 1420, Intra-Procedure (CV) Given 05/23/2021 4:16 PM CDT 25 mL Given 05/23/2021 2:20 PM CDT 10 mL lidocaine (XYLOCAINE) 20 mg/mL (2 %) injection As needed, Starting on Anh 05/23/21 at 1457, Intra-Procedure (CV), Indications: Administration of Local AnesthesiaIndications:Administratio n of Local Anesthesia Given 05/23/2021 2:57 PM CDT 10 mL Left Chest sodium chloride 0.9% flush 0.5-20 mL 0.5-20 [...] sterile water (premix) 2,000 mg 1 05/23/2021 ondansetron (ZOFRAN) injection 4 mg [...] 05/23/2021 documented in this encounter Care Teams Safe Expert Relationship Specialty Start Date End Date Tao Jeffers MD [address] [place] [address] PCP - General 12/18/11 Victor M Barnes MD [address] [place], [place] [address] Consulting Physician Cardiology 05/16/21 Zane Lopez MD [address] [place], [place] [address] Consulting Physician Electrophysiology 05/16/21 Miscellaneous, Not In File 05/23/21 documented as of this encounter
--- OUTSIDE RECORDS SUMMARY | 2024-07-30 20:17 | XMS_ITS | Encounter Summary ---
Author Organization [facility] Healthcare Address [address] [place] [address] Care Team Providers Care Textile Machinery Sales Representative Name Role Phone Tao Jeffers MD Primary Care Provider [phone] Victor M Barnes MD Unavailable Zane Lopez MD Unavailable [phone] Miscellaneous, Not In File Unavailable Unava ilable Encounter Details Date Type Department Care Team (Latest Contact Info) Description 06/10/2021 9:44 AM AUTOMATIC LATHE TENDER - 06/10/2021 6:05 PM AUTOMATIC LATHE TENDER Hospital Encounter [facility] [address] [place] [address] Zane Lopez MD [address] [facility] [address] [place] [address] Paroxysmal atrial fibrillation (CMS/HCC) (HCC) Discharge Disposition: Discharge to home or self care Social History Tobacco Use Types Packs/Day Years Used Date Smoking Tobacco: Former Smokeless Tobacco: Never Sex and Gender Information Value Date Recorded Sex Assigned at Not on file Legal Sex Male 12:29 AM AUTOMATIC LATHE TENDER Gender Identity Not on file Sexual Orientation Not on file documented as of this encounter Last Filed Vital Signs Vital Sign Reading Time Taken Comments Blood Pressure 119/80 06/10/2021 5:05 PM AUTOMATIC LATHE TENDER Pulse 80 06/10/2021 5:05 PM AUTOMATIC LATHE TENDER Temperature 2.4 ??C (36.4 ??F) 06/10/2021 11 :06 AM AUTOMATIC LATHE TENDER Respiratory Rate 16 06/10/2021 11:0 6 AM AUTOMATIC LATHE TENDER Oxygen Saturation 95% 06/10/2021 5:05 PM AUTOMATIC LATHE TENDER Inhaled Oxygen Concentration - - Weight 80.2 kg (176 lb 12.9 oz) 021 11:06 AM AUTOMATIC LATHE TENDER Height 180.3 cm (5' 11 ) 06/10/2021 11: 06 AM AUTOMATIC LATHE TENDER Body Mass Index 24.66 06/10/2021 11:06 AM AUTOMATIC LATHE TENDER documented in this encounter Discharge Instructions * Discharge Instructions* Ashley Osborne RN - 06/10/2021 5:05 PM AUTOMATIC LATHE TENDER Cardiac Laboratory [address] [place], [place] [address] [facility] Discharge Instructions---Angiogram MEDICATIONS [] Do not take [...] for any reason without discussing with your hospital sales representative first. - These medications may make you [...] home diet [] Special diet Instructed by Political Reporter ACTIVITY You have been given medications which [...] Patient/Family Signature: Staff Signature/Title: Date and Time: MATIC LATHE TENDER documented in this encounter Medications at Time [...] for : Procedure(s): ATRIOVENTRICULAR (AV) NODE ABLATION 37859 MATIC LATHE TENDER Source Note - Zane Lopez MD - [...] Class 3. CAD status post PCI Plan: GROUP FITNESS DEPARTMENT HEAD ICD and AV node ablation. Will performed in staged fashion Hold [facility] 2 days prior Zane Lopez MD documented in this encounter Plan of Treatment Not on file documented as of this encounter Procedures Procedure Name Priority Date/Time Associated Diagnosis Comments ECG 12-LEAD Routine 06/10/2021 4:24 PM AUTOMATIC LATHE TENDER PERIPROC PPM EVAL/REPROG 45157 Routine 06/10/2021 3:48 PM AUTOMATIC LATHE TENDER Paroxysmal atrial fibrillation (CMS/HCC) (HCC) ATRIOVENTRICULAR (AV) NODE ABLATION Routine 06/10/2021 3:48 PM AUTOMATIC LATHE TENDER Paroxysmal atrial fibrillation (CMS/HCC) (HCC) ECG 12-LEAD STAT 06/10/2021 11:32 AM AUTOMATIC LATHE TENDER documented in this encounter Results * ECG 12 lead (06/10/2021 4:24 PM AUTOMATIC LATHE TENDER) 06/10/2021 4:24 PM AUTOMATIC LATHE TENDER Narrative [facility] - 06/11/2021 7:28 AM AUTOMATIC LATHE TENDER Vent Rate: 80 bpm RR Interval: 748 msec UT Interval: 242 msec QRS Duration: 151 msec QT Interval: 461 msec QTC Interval: 497 msec P-R-T [place]: 119 - -64 - 105 degrees ELECTRONIC VENTRICULAR PACEMAKER ABNORMAL RHYTHM ECG Electronically Signed By: Pardeep Emerson MD ??[facility] Card us Zane Lopez MD ECG ORDERABLES Final Resul t [facility] * ATRIOVENTRICULAR (AV) NODE ABLATION, PERIPROC PPM EVAL/REPROG [id number] (06/10/2021 3:48 PM AUTOMATIC LATHE TENDER) Anatomical Region Laterality Modality X-Ray Angiograph y Narrative 06/11/2021 9:57 AM AUTOMATIC LATHE TENDER Procedure Electrophysiology Study Radiofrequency Catheter Ablation of [...] * ECG 12 lead (06/10/2021 11:32 AM AUTOMATIC LATHE TENDER) 06/10/2021 11:3 2 AM AUTOMATIC LATHE TENDER Narrative [facility] - 06/10/2021 11:51 AM AUTOMATIC LATHE TENDER Vent Rate: 98 bpm RR Interval: 612 msec UT Interval: 0 msec QRS Duration: 104 msec QT Interval: 390 msec QTC Interval: 445 msec P-R-T [place]: 0 - 13 - -37 degrees ATRIAL FIBRILLATION NONSPECIFIC T-WAVE ABNORMALITY ABNORMAL RHYTHM ECG Electronically Signed By: Gennaro Lujan DO [facility] us Zane Lopez MD ECG ORDERABLES Edited [...] Shoulder PainIndications:Shoulder Pain Given 06/10/2021 4:34 PM AUTOMATIC LATHE TENDER 650 mg sodium chloride 0.9% flush 0.5-20 mL 0.5-20 [...] Pre-Procedure (CV) New Bag 06/10/2021 2:58 PM AUTOMATIC LATHE TENDER documented in this encounter Discontinued Medications Medication [...] Recently Administered Medications Times are shown in AUTOMATIC LATHE TENDER. Scheduled Medication Order 06/08/2021 06/09/2021 06/10/2021 acetaminophen [...] Count Last Ordered Date First Ordered Date heparin in 0.9% sodium chlor jonny 1,000 units/500 mL (2 unit/mL) infusion (premix) 1 06/10/2021 lidocaine (XYLOCAINE) 20 mg/ mL (2 %) injection 1 06/10/2021 sodium chloride 0.9% flush 0.5-20 mL 4 [...] 06/10/2021 documented in this encounter Care Teams Textile Machinery Sales Representative Relationship Specialty Start Date End Date Tao Jeffers MD [address] [place] [id number] PCP - General 12/18/11 Victor M Barnes MD [address] [place] [address] Consulting Physician Cardiology 05/16/21 Zane Lopez MD [address] [place] [address] Consulting Physician Electrophysiology 05/16/21 Miscellaneous, Not In File 05/23/21 documented as of this encounter
--- OUTSIDE RECORDS SUMMARY | 2024-07-30 20:17 | XMS_ITS | Encounter Summary ---
Author Organization [facility] Medical Group Address [address] [facility] [facility] [address] [place] [address] Care Team Providers Care Kaitara Taraka Name Role Phone Tao Jeffers MD Primary Care Provider [phone] Victor M Barnes MD Unavailable Zane Lopez MD Unavailable Miscellaneous, Not In File Unavailable Unava ilable Encounter Details Date Type Department Care Team (Late st Contact Info) Description 05/08/2021 Telephone [facility] Medical Group Cardiology [address] [place] [address] Victor M Barnes MD [address] [id number] Social History Tobacco Use Types Packs/Day Years Used Date Smoking Tobacco: Former Smokeless Tobacco: Never Sex and Gender Information Value Date Recorded Sex Assigned at Not on file Legal Sex Male 12:29 AM PEST CONTROL SPECIALIST Gender Identity Not on file Sexual Orientation Not on file documented as of this encounter Miscellaneous Notes * Telephone Encounter - Yuko Burden RN - 05/08/2021 3:00 PM CDT Called pt back, he said his CT chest was negative for PE today and his PCP was going to send us a copy. Rescheduled pt for SANDRA/CV with AD on Thursday at - reviewed instructions with pt he verbalized understanding. * Telephone Encounter - Gage Blanco - 05/08/2021 2:12 PM CDT Pt requesting a call from nurse Huntley,no details given at this time. Contact:[phone] documented in this encounter Plan of Treatment Not on file documented as of this encounter Visit Diagnoses Not on filedocumented in this encounter Care Teams Kaitara Taraka Relationship Specialty Start Date End Date Tao Jeffers MD [address] [place], [place] [id number] PCP - General 12/18/11 Victor M Barnes MD [address], [place] [id number] Consulting Physician Cardiology 05/16/21 Zane Lopez MD [address], [place] [id number] Consulting Physician Electrophysiology 05/16/21 Miscellaneous, Not In File 05/23/21 documented as of this encounter
--- OUTSIDE RECORDS SUMMARY | 2024-07-30 20:17 | XMS_ITS | Encounter Summary ---
Author Organization [facility] Medical Group Address [address] [place] [address] Care Team Providers Care Nibbler Operator Name Role Phone Tao Jeffers MD Primary Care Provider Encounter Details Date Type Department Care Team (Late st Contact Info) Description 01/30/2021 Orders Only [facility] Medical Group Cardiology [address] [place] [address] Debbie Jerez MD [address] [place], [place] [id number] Social History Tobacco Use Types Packs/Day Years Used Date Smoking Tobacco: Former Smokeless Tobacco: Never Sex and Gender Information Value Date Recorded Sex Assigned at Not on file Legal Sex Male 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 Gender Identity Not on file Sexual Orientation Not on file documented as of this encounter Plan of Treatment Not on file documented as of this encounter Procedures Procedure Name Priority Date/Time Associated Diagnosis Comments CARDIOLOGY DOCUMENT SCAN Routine 01/30/2021 documented in this encounter Results * SCAN - CARDIOLOGY (01/30/2021) Anatomical Region Laterality Modality Other Debbie Jerez MD CV CARDIAC SERVICES PROCEDU RES Final Result documented in this encounter Visit Diagnoses Not on filedocumented in this encounter Care Teams Nibbler Operator Relationship Specialty Start Date End Date Tao Jeffers MD [address] [place] [address] PCP - General 5/24/12 documented as of this encounter
--- OUTSIDE RECORDS SUMMARY | 2024-07-30 20:17 | XMS_ITS | Encounter Summary ---
Author Organization [facility] Medical [facility] Address [address] [place] [address] Care Team Providers Care Medical Office Representative Name Role Phone Tao Jeffers MD Primary Care Provider [phone] Reason for Visit * Reason Comments Follow-up trouble walking and does not feel any better after having stents placed. Atrial Fibrillation Shortness of Breath Cough Encounter Details Date Type Department Care Team ([facility] st Contact Info) Description 05/01/2021 1:15 PM CDT Office Visit [facility] Medical [facility] Cardiology [address] [place] [address] Victor M Barnes MD [id number] [place] [address] Paroxysmal atrial fibrillation (CMS/HCC) (HCC) (Primary Dx); Coronary artery disease involving [place] croix coronary artery of [place] 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 Gender Identity Not on file Sexual Orientation Not on file documented as of this encounter Last Filed Vital Signs Vital Sign Reading Time Taken Comments Blood Pressure 118/80 05/01/2021 1:16 PM CDT Pulse 108 05/01/2021 1:16 PM CDT Temperature - - Respiratory Rate - - Oxygen Saturation 98% 05/01/2021 1:16 PM CDT Inhaled Oxygen Concentration - - Weight 77.2 kg (170 lb 3.2 oz) 05/01/2021 1:16 P M CDT Height 180.3 cm (5' 11 ) 05/01/2021 1:16 PM CDT Body Mass Index 23.74 05/01/2021 1:16 PM CDT documented in this encounter Ordered Prescriptions Prescription Sig Dispense Quantity Refills Last Filled Start Date End Date atorvastatin (LIPITOR) 80 mg tablet Take 1 tablet (80 mg total) by mouth daily 90 tablet 3 05/01/2021 04/28/2022 documented in this encounter Progress Notes * Victor M Barnes MD - 05/01/2021 1:15 PM CDT Images from the original note were not included. DATE OF VISIT: 05/09/2021 CHIEF COMPLAINT Chief Complaint Patient presents with ??? Follow-up trouble walking and does not feel any better after having stents placed. ??? Atrial Fibrillation ??? Shortness of Breath ??? Cough ASSESSMENT Diagnoses and all orders for this visit: Paroxysmal atrial fibrillation (CMS/HCC) (HCC) (Primary) - ECG 12 lead Coronary artery disease involving [place]. croix coronary artery of [place] croix heart without angina pectoris Ischemic cardiomyopathy CAMACHO (dyspnea on exertion) Mixed dyslipidemia HTN (hypertension), benign Chronic anticoagulation S/P coronary artery stent placement At risk for amiodarone toxicity with detention use Other orders - atorvastatin (LIPITOR) 80 mg tablet; Take 1 tablet (80 mg total) by mouth daily PLAN/RECOMMENDATIONS 1. Stable, persistent A. Fib generally controlled heart rate yet remains symptomatic with fatigue and exertional dyspnea. Continue current medical therapy and systemic anticoagulation for stroke riskreduction. CHADS2 Vasc score 5. -continue Eliquis 5 mg b.i.d.. Monitor for bleeding. Discussed concomitant significant bleeding risk with and platelet Brilinta and Eliquis. Monitor bright red blood per rectum black dark tarry stools. Notify the office immediately. If head injury, bleeding and or significant fall present to ER viaEMS immediately. -given persistent symptoms despite PCI and intervention it appears this is most likely related to his atrial fibrillation. Will plan for SANDRA guided cardioversion in attempt to restore sinus rhythm onamiodarone. Discussed at length further options including referral to electrophysiology for AFib ablation and or more likely AV inocente ablation with pacemaker implantation. Patient verbalized understanding. He wishes to proceed with SANDRA guided cardioversion. Will set up for next week. -continue amiodarone 200 mg daily and Toprol XL 50 mg daily. 2. No anginal symptoms. Exertional dyspnea and [...] LDL 53, well controlled goal LDL<70. Continue [id number] qhs therapy and lifestyle modification. 5. Compensated HFrEF NYHA class III. CHF counseling performed. Follow daily weight, less than 2 g daily sodium intake, medication compliance. Call w/ wt gain >3lb in 24 hrs or worsening edema and/or CAMACHO. -With combination of PCI and attempts at maintenance of SR, I would hope to see improvement in EF. -EF 35% by Echo, [facility]. 6. Twelve lead EKG today personally reviewed and discussed atrial fibrillation with rapid ventricular response 105 beats per minute LVH nonspecific ST abnormality QRS 84 millisecond QT corrected 428 millisecond. Abnormal EKG. Over 50% of this visit counseling A.Fib, CAD, HTN, lipids, medications, lifestyle modification. Follow up in the office in 1 month or sooner as needed. Thank you for [...] required hospitalization and appendectomy. He presented to [facility] on 01[facility]01[facility]21 under the advice of his PCP for complaintof progressively worsening fatigue and exertional dyspnea and an elevated heart rate in the 150s. He was found to be in AFib with RVR, troponins negative, proBNP 2680, chest x- ray small right pleuraleffusion. Echocardiogram showed moderately reduced LV systolic dysfunction with EF 40-45%. Dr. Barens met the patient in consultation. Systemic anticoagulation [...] on amiodarone. ?? 01/18/21 Hospital follow-up with TAFE TEACHER - Lm Jimenez comes to the office [...] to 120 and he did have 1 heart rate recording of 85. He has [...] have been 90s over 60s. Heart rates havebeen 97-101 bpm.This morning he states he feels ???pooped.?? He is bringing up a lot of white phlegm , states he does have allergies and takes Zyrtec . He denies orthopnea or PND. He can climb up his stairs although he does get breathless this seems to be staying the same. He is doing yard work. Amonth ago he had a presyncopal episode: he fell into the yard waste bin head first, got himself up again and sat down in a chair, then felt very lightheaded, it passed in a few minutes and did not recur. He is bleeding easily when he scratches or cuts himself and wants to know if he could reduce the Eliquis. 05/01/21 still quite tired SOB with any activity had one day felt better post PCI then back to not feeling well. States life is not on hold, on Amiodarone, and he needs to do something.currently in Brilinta 90mg BID, Eliquis 5mg BID. MEDICAL HISTORY Past Medical History: Diagnosis Date ??? Atrial fibrillation (CMS/HCC) (HCC) ??? Cardiomyopathy (HCC) ??? Coronary artery disease ??? Hyperlipidemia ??? Hypertension SOCIAL HISTORY reports that he has quit smoking. He has never used smokeless tobacco. He reports current drug use.Drug: Alcohol. FAMILY HISTORY family history is not on file. MEDICATIONS HOME MEDICATIONS : amiodarone (PACERONE) 200 mg tablet Brilinta 90 mg tablet cetirizine (ZyrTEC) 10 mg tablet Eliquis 5 mg tablet lisinopriL (PRINIVIL,ZESTRIL) 10 mg tablet metoprolol XL (TOPROL-XL) 50 mg extended release tablet polyethylene glycol (MIRALAX) 17 gram packet tamsulosin (FLOMAX) 0.4 mg extended release capsule atorvastatin (LIPITOR) 80 mg tablet ALLERGIES Allergies Allergen Reactions ??? Codeine Swelling ??? Sulfur Swelling ??? Wheat Itching Takes Zyrtec for it REVIEW OF SYSTEMS Review of Systems Constitutional: Negative for decreased appetite, diaphoresis, fever, malaise/fatigue, night sweats,weight gain and weight loss. HENT: Negative for hearing loss and nosebleeds. Eyes: Negative for blurred vision and pain. Cardiovascular: Negative for chest pain, claudication, dyspnea [...] and are negative. PHYSICAL EXAM Vitals BP 118/80 (BP Location: Right arm, Patient Position: Sitting) Pulse 108 Ht 180.3 cm (5' 11 ) Wt 77.2 kg (170 lb 3.2 oz) SpO2 98% BMI 23.74 kg/m?? Weight: 77.2 kg (170 lb 3.2 oz) Height: 180.3 cm (5' 11 ) Body mass index is 23.74 kg/m??. Physical Exam Vitals reviewed. Constitutional: General: [...] No edema. Left lower leg: No edema. Lymphadenopathy: Cervical: No cervical adenopathy. Skin: General: Skin is warm and dry. Coloration: Skin is not pale. Findings: No ecchymosis, erythema, petechiae or rash. Nails: There is no clubbing. Neurological: General: No focal deficit present. Mental Status: He is alert. Mental status is at baseline. He is disoriented. Cranial Nerves: No cranial nerve deficit. Motor: No abnormal muscle tone. Coordination: Coordination normal. Psychiatric: Mood and Affect: Mood normal. Speech: Speech normal. Behavior: Behavior normal. Behavior is cooperative. Thought Content: Thought content normal. Judgment: Judgment normal. LABS AND OTHER DIAGNOSTIC TESTS No results found for: WBC, HGB, HCT, PLT, CREATININE, POTASSIUM, BUNSER Results for orders placed or performed in visit on 01/21/21 Lipid panel Result Value Ref Range SCRIBED Cholesterol, Total 105 0 - 200 SCRIBED HDL 33 (A) 40 - 100 SCRIBED LDL 53 0 - 100 SCRIBED Triglycerides 48 0 - 150 I have personally reviewed EKG, electronic medical record, and bloodwork/lipids. Сергей Barnes MD, [facility] This note is dictated and transcribed using [employer]oDynamics Direct Software. Ct Scan Technologist variancesmay occur. Despite proofreading, typographical errors may occur. documented in this encounter Miscellaneous Notes * Addendum Note - Rebecca Ballesteros MA - 05/01/2021 1:15 PM CDTAddended by: REBECCA BALLESTEROS on: 05/03/2021 11:53 AM Modules accepted: Orders documented in this encounter Plan of Treatment Not on file documented as of this encounter Procedures Procedure Name Priority Date/Time Associated Diagnosis Comments ECG 12-LEAD Routine 05/01/2021 Paroxysmal atrial fibrillation (CMS/HCC) (HCC) documented in this encounter Results * ECG 12 lead (05/01/2021) Victor M Barnes MD ECG ORDERABLES Final Re sult documented in this encounter Visit Diagnoses Diagnosis Paroxysmal atrial fibrillation (CMS/HCC) (HCC)- Primary Atrial fibrillation Coronary artery disease involving st. croix coronary artery of [place]. croix heart without angina pectoris Ischemic cardiomyopathy Other specified forms of chronic ischemic heart disease CAMACHO (dyspnea on exertion) Other dyspnea and respiratory abnormality Mixed dyslipidemia HTN (hypertension), benign Essential hypertension, benign Chronic anticoagulation Encounter for long-term (current) use of anticoagulants S/P coronary artery stent placement Postsurgical percutaneous transluminal coronary angioplasty status At risk for amiodarone toxicity with detention use documented in this encounter Discontinued Medications Medication Sig Discontinue Reason Start Date End Da te atorvastatin (LIPITOR) 80 mg tablet Take 1 tablet (80 mg total) by mouth daily Alternate therapy 04/30/2021 05/01/2021 simvastatin (ZOCOR) 40 mg tablet Take 40 mg by mouth nightly 05/01/2021 documented as of this encounter Historical Medications * This list may reflect changes made after this encounter. Brilinta 90 mg tablet Take 90 mg by mouth every 12 (twelve) hours 04/16/2021 08/21/2021 simvastatin (ZOCOR) 40 mg tablet Take 40 mg by mouth nightly 05/01/2021 added in this encounter Care Teams Medical Office Representative Relationship Specialty Start Date End Date Tao Jeffers MD [address] [place] [address] PCP - General 12/18/11 documented as of this encounter
--- OUTSIDE RECORDS SUMMARY | 2024-07-30 20:17 | XMS_ITS | Encounter Summary ---
Author Organization [facility] Medical Group Address [address] [place] [address] Care Team Providers Care Telecom Coordinator Name Role Phone Tao Jeffers MD Primary Care Provider [phone] Encounter Details Date Type Department Care Team (Late st Contact Info) Description 04/04/2021 Telephone [facility] Medical [facility] Cardiology [address] [facility] [place] [address] Yolie Chao NP [address] [facility] [address] [place] [address] Social History Tobacco Use Types Packs/Day Years Used Date Smoking Tobacco: Former Smokeless Tobacco: Never Sex and Gender Information Value Date Recorded Sex Assigned at Not on file 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 Sent new Rx to pharm-pill too small to cut. Pt will cont to check BP and bring readings in at his evan on Thursday. Pt said he has no other issues besides the phlegm-he will call his PCP. * Telephone Encounter - Yolie Chao NP - 04/04/2021 10:27 AM CDT I recommend he reduce his lisinopril from 20 mg daily to 10 mg daily b/c of the low BP's. In regards to the phlegm - is he having any other s/sx of CHF? (new or worsening cough, weight gain, edema, increased CAMACHO, orthopnea, PND?) If not, call PCP to discuss phlegm. * Telephone Encounter - Yuko Burden RN - 04/04/2021 10:00 AM CDT Pt called in this morning with concerns about fatigue and low BP. (Pt is scheduled for [facility] with AD on 04/16 and pt had a previously scheduled appt with CT on 04/08 that he wished to keep.) Pt reports his BP over the last week: 96/68, 92/62, 97/61, 80/61, 88/61, 93/75 and his HR has been in the 90's. Pt has been taking amiodarone 200mg daily and lisinopril 20mg. Pt also noted that he is coughing up a lot of phlegm as well but no other complaints. Will forward to CT. Please advise, thank you! * Telephone Encounter - Lena John - 04/04/2021 8:41 AM CDT Pt requesting a call from MARJORIE Chao. Did not want to leave any details. Contact: documented in this encounter Plan of Treatment Not on file documented as of this encounter Visit Diagnoses Not on filedocumented in this encounter Discontinued Medications Medication Sig Discontinue Reason Start Date End Da te lisinopriL (PRINIVIL,ZESTRIL) 20 mg tablet Take 20 mg by mouth daily Reorder 11/19/2020 04/04/2021 documented as of this encounter Care Teams Telecom Coordinator Relationship Specialty Start Date End Date Tao Jeffers MD [address] [place] [address] PCP - General 12/18/11 documented as of this encounter
--- OUTSIDE RECORDS SUMMARY | 2024-07-30 20:17 | XMS_ITS | Encounter Summary ---
Author Organization [facility] Medical Group Address [address] [place] [address] Care Team Providers Care Cement Block Maker Name Role Phone Tao Jeffers MD Primary Care Provider [phone] Reason for Visit * Reason Onset Date Comments Atorvastatin 04/30/2021 Encounter Details Date Type Department Care Team (Late st Contact Info) Description 04/30/2021 Telephone [facility] Medical Group Cardiology [address] [place] [address] Ayla Ballesteros MA Atorvastatin Social History Tobacco Use Types Packs/Day Years Used Date Smoking Tobacco: Former Smokeless Tobacco: Never Sex and Gender Information Value Date Recorded Sex Assigned at Not on file 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 Please sendan 80 mg q.h.s.. * Telephone Encounter - Ayla Ballesteros MA - 04/30/2021 1:53 PM CDT Received a fax from [facility] regarding Atorvastatin 40 mg. Fax states ins will only cover 1 tableta day and rx was written for [address] Barnes, Can a rx for Atvorvastatin 80 mg be sent in instead? Please advise. documented in this encounter Plan of Treatment Not on file documented as of this encounter Visit Diagnoses Not on filedocumented in this encounter Care Teams Cement Block Maker Relationship Specialty Start Date End Date Tao Jeffers MD [address] [place] [address] PCP - General 12/18/11 documented as of this encounter
--- OUTSIDE RECORDS SUMMARY | 2024-07-30 20:17 | XMS_ITS | Encounter Summary ---
Author Organization [facility] Medical Group Address [address] [place] [address] Care Team Providers Care Vessel Builder Name Role Phone Tao Jeffers MD Primary Care Provider [phone] Victor M Barnes MD Unavailable [phone] Zane Lopez MD Unavailable Miscellaneous, Not In File Unavailable Unava ilable Encounter Details Date Type Department Care Team (Late st Contact Info) Description 05/31/2021 Telephone [facility] [address] [place] [address] Zane Lopez MD [address] [place] [address] Social History Tobacco Use Types Packs/Day Years Used Date Smoking Tobacco: Former Smokeless Tobacco: Never Sex and Gender Information Value Date Recorded Sex Assigned at Not on file 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 Gender Identity Not on file Sexual Orientation Not on file documented as of this encounter Ordered Prescriptions Prescription Sig Dispense Quantity Refills Last Filled Start Date End Date apixaban (ELIQUIS) 5 mg tablet Take 1 tablet (5 mg total) by mouth 2 (two) times a day 60 tablet 06/03/2021 05/15/2022 documented in this encounter Miscellaneous Notes * Telephone Encounter - Melissa Adams - 06/03/2021 9:39 AM CST Patient scheduled for 06/10/2021 ER WORKER HELPER * Telephone Encounter - Zane Lopez MD - 05/31/2021 3:40 PM CDT Yes, Please schedule AV node ablation Device company to be present Anesthesia Hold anticoagulant night before and morning of Schedule for Jun 10 may be best * Telephone Encounter - Melissa Adams - 05/31/2021 2:04 PM CDT Patient had wound check yesterday. Is he okay to be scheduled for AVJ? * Telephone Encounter - Melissa Adams - 05/31/2021 2:04 PM CDT ----- Message from Zane Lopez MD sent at 05/23/2021 4:40 PM CDT ----- Let me know at the wound check if everything is looking good. If so we can plan to schedule his AV node ablation documented in this encounter Plan of Treatment Not on file documented as of this encounter Visit Diagnoses Not on filedocumented in this encounter Care Teams Vessel Builder Relationship Specialty Start Date End Date Tao Jeffers MD [address] [place], [place] [address] PCP - General 12/18/11 Victor M Barnes MD [address] [place], [place] [id number] Consulting Physician Cardiology 05/16/21 Zane Lopez MD [address] [place] [address] Consulting Physician Electrophysiology 05/16/21 Miscellaneous, Not In File 05/23/21 documented as of this encounter
--- OUTSIDE RECORDS SUMMARY | 2024-07-30 20:17 | XMS_ITS | Encounter Summary ---
Author Organization [facility] Medical Group Address [address] [place] [address] Care Team Providers Care Watch Parts Grinder Name Role Phone Tao Jeffers MD Primary Care Provider [phone] Encounter Details Date Type Department Care Team (Late st Contact Info) Description 05/13/2021 Telephone [facility] Medical Group Cardiology [address] [place] [address] Victor M Barnes MD [address] [facility] [facility] [address] [address] [place] [address] Social History Tobacco Use Types Packs/Day Years Used Date Smoking Tobacco: Former Smokeless Tobacco: Never Sex and Gender Information Value Date Recorded Sex Assigned at Not on file 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 Gender Identity Not on file Sexual Orientation Not on file documented as of this encounter Ordered Prescriptions Prescription Sig Dispense Quantity Refills Last Filled Start Date End Date Eliquis 5 mg tablet Take 1 tablet (5 mg total) by mouth every 12 (twelve) hours 60 tablet 11 05/13/2021 05/23/2021 sacubitriL-valsart an (ENTRESTO) 24-26 mg tabletIndications: chronic heart failure Take 1 tablet by mouth 2 (two) times a day 60 tablet 11 05/13/2021 05/17/2021 documented in this encounter Miscellaneous Notes * Telephone Encounter - Yuko Burden RN - 05/13/2021 9:46 AM CDT Called pt and reviewed message from AD: stop lisinopril and call us back and let us know if cough has improved, send Rx to pharm for entresto BID for pt to check on the cost but to notpick it up yet-if cough has not improved and entresto is affordable-send Rx in, if cough has improved send in losartan 26mg daily. Pt verbalized understanding and will callback on with an update. * Telephone Encounter - Lena John - 05/13/2021 8:41 AM CDT Pt requesting a call from ANTHONY Huntley. Did not want to give any details. ?? Contact:[phone] documented in this encounter Plan of Treatment Not on file documented as of this encounter Visit Diagnoses Not on filedocumented in this encounter Discontinued Medications Medication Sig Discontinue Reason Start Date End Da te lisinopriL (PRINIVIL,ZESTRIL) 10 mg tabletIndications:Tachyca rdia induced cardiomyopathy (CMS/HCC) (HCC) Take 1 tablet (10 mg total) by mouth daily Hold if systolic BP in morning is below 100 04/08/2021 05/13/2021 Eliquis 5 mg tablet Take 5 mg by mouth every 12 (twelve) hours Reorder 01/03/2021 05/13/2021 documented as of this encounter Care Teams Watch Parts Grinder Relationship Specialty Start Date End Date Tao Jeffers MD [address] [place] [address] PCP - General 12/18/11 documented as of this encounter
--- OUTSIDE RECORDS SUMMARY | 2024-07-30 20:17 | XMS_ITS | Encounter Summary ---
Author Organization [facility] Medical Group Address [address] [place] [address] Care Team Providers Care Pan Tank Worker Name Role Phone Tao Jeffers MD Primary Care Provider Encounter Details Date Type Department Care Team (Late st Contact Info) Description 01/31/2021 Telephone [facility] Medical Group Cardiology [address] [facility] [address] [place] [address] Debbie Jerez MD [address] [facility] [address] [place] [address] Social History Tobacco Use Types Packs/Day Years Used Date Smoking Tobacco: Former Smokeless Tobacco: Never Sex and Gender Information Value Date Recorded Sex Assigned at Not on file 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 Pt verbalized understanding but would prefer to hold off with sleep study for now. He said he would like to wait until his next appt with CT on 02/11 todecide. Discussed sleep study with him at length and the benefits to having it done-pt would still like to wait at this time. Will forward to AD and CT as FYI. * Telephone Encounter - Victor M Barnes MD - 02/01/2021 9:56 AM CDT YEs agreed, we had previously discussed I believe. Thank you. I will have nurses set up for him if he agrees. Sleep study to assess for SHYAM as possible contribution to prompt recurrence of A. Fib. * Telephone Encounter - Debbie Jerez MD - 01/31/2021 9:23 PM CDT Successful cardioversion 01/30/2021. Consider a sleep study since pt had a a fib relapse? documented in this encounter Plan of Treatment Not on file documented as of this encounter Visit Diagnoses Not on filedocumented in this encounter Care Teams Pan Tank Worker Relationship Specialty Start Date End Date Tao Jeffers MD [address] [place] [address] PCP - General 12/18/11 documented as of this encounter
--- OUTSIDE RECORDS SUMMARY | 2024-07-30 20:17 | XMS_ITS | Encounter Summary ---
Author Organization [facility] Address [address] [place] [address] Care Team Providers Care Hand Mica Plate Layer Name Role Phone Tao Jeffers MD Primary Care Provider Victor M Barnes MD Unavailable Zane Lopez MD Unavailable Miscellaneous, Not In File Unavailable Unava ilable Encounter Details Date Type Department Care Team (Late st Contact Info) Description 05/24/2021 Telephone [facility] Cardiology [address] [place] [address] Victor M Barnes MD [address] [id number] Social History Tobacco Use Types Packs/Day Years Used Date Smoking Tobacco: Former Smokeless Tobacco: Never Sex and Gender Information Value Date Recorded Sex Assigned at Not on file 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 Pt said they are also talking about scheduling ablation sometime soon. Cancelled CT appt and pt will callback to reschedule after he has more info. * Telephone Encounter - Lena John - 05/24/2021 10:14 AM CDT Pt requesting call from ANTHONY Huntley. Did not want to leave any details. ?? Contact: documented in this encounter Plan of Treatment Not on file documented as of this encounter Visit Diagnoses Not on filedocumented in this encounter Care Teams Hand Mica Plate Layer Relationship Specialty Start Date End Date Tao Jeffers MD [address] [place], [place] [id number] PCP - General 12/18/11 Victor M Barnes MD [address] [place] [id number] Consulting Physician Cardiology 05/16/21 Zane Lopez MD [address] [place] [address] Consulting Physician Electrophysiology 05/16/21 Miscellaneous, Not In File 05/23/21 documented as of this encounter
--- OUTSIDE RECORDS SUMMARY | 2024-07-30 20:17 | XMS_ITS | Encounter Summary ---
Author Organization [facility] Address [address] [place] [address] Care Team Providers Care Mechanical Piping Designer Name Role Phone Tao Jeffers MD Primary Care Provider Reason for Visit * Diagnostic Imaging (Routine) - Closed Specialty Diagnoses / Procedures Referred By Contac t Referred To Contact Diagnoses Persistent atrial fibrillation (HCC) Procedures NM MPI SPECT (Rest and/or Stress) Multiple Studies Yolie Chao NP [address] [address] Phone: tel: fax: [facility] Referral ID Status Reason Start Date Expiration Date Visits Re quested Visits Authorized [id number] Closed 02/18/2021 04/04/2021 1 1 Encounter Details Date Type Department Care Team (Late st Contact Info) Description 03/06/2021 8:15 AM CDT Ancillary Procedure [facility] Cardiology [address] [phone] Social History Tobacco Use Types Packs/Day Years Used Date Smoking Tobacco: Former Smokeless Tobacco: Never Sex and Gender Information Value Date Recorded Sex Assigned at Not on file 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 Gender Identity Not on file Sexual Orientation Not on file documented as of this encounter Plan of Treatment Not on file documented as of this encounter Procedures Procedure Name Priority Date/Time Associated Diagnosis Comments NM MPI SPECT (REST AND/OR STRESS) MULTIPLE STUDIES Schedule Routine, Read Routine (OP Routine) 03/06/2021 9:18 AM CDT Persistent atrial fibrillation (HCC) documented in this encounter Visit Diagnoses Not on filedocumented in this encounter Administered Medications Inactive Administered Medications - up to 3 most recent administrations Medication Order MAR Action Action Date Dose Rate Site regadenoson (LEXISCAN) 0.4 mg/5 mL injection 0.4 mg 0.4 mg, intravenous, Once, On Thu03/06/21 at 1000, For 1 dose, Administer IV push over 10 seconds., Indications: Myocardial Perfusion Imaging AdjunctIndications:Myocard ial Perfusion Imaging Adjunct Given 03/06/2021 9:18 AM CDT 0.4 mg tc-99m sestamibi unit dose injection 11 millicurie 11 millicurie, intravenous, Once in imaging, radiopharmaceutical, Starting on Thu03/06/21 at 0835, For 1 dose, Indications: Diagnostic RadiographyIndications:Ashley gnostic Radiography Given 03/06/2021 8:35 AM CDT 11 millicuries tc-99m sestamibi unit dose injection 32.5 millicurie 32.5 millicurie, intravenous, Once in imaging, radiopharmaceutical, Starting on Thu03/06/21 at 0918, For 1 dose, Indications: Diagnostic RadiographyIndications:Ashley gnostic Radiography Given 03/06/2021 9:19 AM CDT 32.5 millicuries documented in this encounter Care Teams Mechanical Piping Designer Relationship Specialty Start Date End Date Tao Jeffers MD [address] [place] [address] PCP - General 12/18/11 documented as of this encounter
--- OUTSIDE RECORDS SUMMARY | 2024-07-30 20:17 | XMS_ITS | Encounter Summary ---
Author Organization [facility] Address [address] [place] [address] Care Team Providers Care Real Estate Director Name Role Phone Tao Jeffers MD Primary Care Provider [phone] Encounter Details Date Type Department Care Team (Late st Contact Info) Description 05/01/2021 Telephone [facility] Cardiology [address] [place] [address] Victor M Barnes MD [address] [phone] Social History Tobacco Use Types Packs/Day Years Used Date Smoking Tobacco: Former Smokeless Tobacco: Never Sex and Gender Information Value Date Recorded Sex Assigned at Not on file 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 documented in this encounter Plan of Treatment Not on file documented as of this encounter Visit Diagnoses Not on filedocumented in this encounter Care Teams Real Estate Director Relationship Specialty Start Date End Date Tao Jeffers MD [address] [place] [id number] PCP - General 12/18/11 documented as of this encounter
--- OUTSIDE RECORDS SUMMARY | 2024-07-30 20:17 | XMS_ITS | Encounter Summary ---
Author Organization [facility] Address [address] [place] [address] Care Team Providers Care Forest Management Teacher Name Role Phone Tao Jeffers MD Primary Care Provider [phone] Victor M Barnes MD Unavailable [phone] Zane Lopez MD Unavailable [phone] Encounter Details Date Type Department Care Team (Late st Contact Info) Description 04/18/2021 Telephone [facility] Cardiology [address] [facility] [address] [facility] [address] [place] [address] Victor M Barnes MD [address] [address] Social History Tobacco Use Types Packs/Day Years Used Date Smoking Tobacco: Former Smokeless Tobacco: Never Sex and Gender Information Value Date Recorded Sex Assigned at Not on file 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 Pt said his BP was a little soft today at 93/67-pt is feeling fine-reviewed last OV note from CT: But because of the low blood pressures I advised him to wait an hour after taking metoprolol and amiodarone, check blood pressure, and if systolic BP is below 100, hold lisinopril that day. If systolic BP is 100 or above take lisinopril 10 mg. pt will hold hislisinopril this morning and cont to monitor his BP-advised him to call us if his BP cont to run below 100. Pt was also concerned about not being able to get his statin from the pharmacy yet-he was told it may take a couple of days-told pt missing a couple of days of his statin is not the end of theworld- the most important meds after a stent are asa and brilinta-pt verbalized understanding and appreciated the call back. * Telephone Encounter - Lena John - 04/18/2021 9:01 AM CDT Pt requesting a call back in regards to heart cath procedure that was done on 04/16. Contact: documented in this encounter Plan of Treatment Not on file documented as of this encounter Visit Diagnoses Not on filedocumented in this encounter Care Teams Forest Management Teacher Relationship Specialty Start Date End Date Tao Jeffers MD [address] [place] [address] PCP - General 12/18/11 Victor M Barnes MD [address] [place], [place] [id number] Consulting Physician Cardiology 05/16/21 Zane Lopez MD [address] [place], [place] [address] Consulting Physician Electrophysiology 05/16/21 documented as of this encounter
--- OUTSIDE RECORDS SUMMARY | 2024-07-30 20:18 | XMS_ITS | Encounter Summary ---
Author Organization [facility] Address [address] [place] [address] Care Team Providers Care Drawer Hardware Worker Name Role Phone Tao Jeffers MD Primary Care Provider Encounter Details Date Type Department Care Team (Late st Contact Info) Description 01/02/2021 Orders Only [facility] Cardiology [address] [place] [address] Victor M Barnes MD [address] [facility] [address] [place] [address] Social History Tobacco Use Types Packs/Day Years Used Date Smoking Tobacco: Never Assessed Sex and Gender Information Value Date Recorded Sex Assigned at Not on file 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 Gender Identity Not on file Sexual Orientation Not on file documented as of this encounter Plan of Treatment Not on file documented as of this encounter Procedures Procedure Name Priority Date/Time Associated Diagnosis Comments CARDIOLOGY DOCUMENT SCAN Routine 01/02/2021 documented in this encounter Results * SCAN - CARDIOLOGY (01/02/2021) Anatomical Region Laterality Modality Other us Victor M Barnes MD CV CARDIAC SERVICES PROC EDURES Final Result documented in this encounter Visit Diagnoses Not on filedocumented in this encounter Care Teams Drawer Hardware Worker Relationship Specialty Start Date End Date Tao Jeffers MD [address] [place] [address] PCP - General 12/18/11 documented as of this encounter
--- OUTSIDE RECORDS SUMMARY | 2024-07-30 20:18 | XMS_ITS | Encounter Summary ---
Author Organization [facility] Address [address] [facility] [place] [address] Care Team Providers Care Floor Clerk Name Role Phone Tao Jeffers MD Primary Care Provider Encounter Details Date Type Department Care Team (Late st Contact Info) Description 01/01/2021 Orders Only [facility] Cardiology [address] [place] [address] Victor M Barnes MD [address] [facility] [address] [place] [address] Social History Tobacco Use Types Packs/Day Years Used Date Smoking Tobacco: Never Assessed Sex and Gender Information Value Date Recorded Sex Assigned at Not on file 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 Gender Identity Not on file Sexual Orientation Not on file documented as of this encounter Plan of Treatment Not on file documented as of this encounter Procedures Procedure Name Priority Date/Time Associated Diagnosis Comments CARDIOLOGY DOCUMENT SCAN Routine 01/01/2021 documented in this encounter Results * SCAN - CARDIOLOGY (01/01/2021) Anatomical Region Laterality Modality Other us Victor M Barnes MD CV CARDIAC SERVICES PROC EDURES Final Result documented in this encounter Visit Diagnoses Not on filedocumented in this encounter Care Teams Floor Clerk Relationship Specialty Start Date End Date Tao Jeffers MD [address] [place] [address] PCP - General 12/18/11 documented as of this encounter
--- OUTSIDE RECORDS SUMMARY | 2024-07-30 20:18 | XMS_ITS | Encounter Summary ---
Author Organization [facility] Address [address] [address] [place] [address] Care Team Providers Care Rag Production Worker Name Role Phone Tao Jeffers MD Primary Care Provider Encounter Details Date Type Department Care Team (Late st Contact Info) Description 01/03/2021 Orders Only [facility] Cardiology [address] [place] [address] Victor M Barnes MD [address] [facility] [address] [place] [address] Social History Tobacco Use Types Packs/Day Years Used Date Smoking Tobacco: Never Assessed Sex and Gender Information Value Date Recorded Sex Assigned at Not on file 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 Gender Identity Not on file Sexual Orientation Not on file documented as of this encounter Plan of Treatment Not on file documented as of this encounter Procedures Procedure Name Priority Date/Time Associated Diagnosis Comments CARDIOLOGY DOCUMENT SCAN Routine 01/03/2021 documented in this encounter Results * SCAN - CARDIOLOGY (01/03/2021) Anatomical Region Laterality Modality Other us Victor M Barnes MD CV CARDIAC SERVICES PROC EDURES Final Result documented in this encounter Visit Diagnoses Not on filedocumented in this encounter Care Teams Rag Production Worker Relationship Specialty Start Date End Date Tao Jeffers MD [address] [place] [id number] PCP - General 12/18/11 documented as of this encounter
--- OUTSIDE RECORDS SUMMARY | 2024-07-30 20:18 | XMS_ITS | Encounter Summary ---
Author Organization [facility] Address [address] [place] [address] Care Team Providers Care Client Solutions Manager Name Role Phone Tao Jeffers MD Primary Care Provider [phone] Reason for Visit * Reason Comments Atrial Fibrillation EKG visit only s/p C V * Cardiology (Routine) - Closed Specialty Diagnoses / Procedures Referred By Contac t Referred To Contact Diagnoses Atrial fibrillation, unspecified type (HCC) Procedures ECG 12 lead Jesika Santamaria NP Phone: tel: fax: [facility] Referral ID Status Reason Start Date Expiration Date Visits Re quested Visits Authorized [id number] Closed 01/03/2021 02/02/2022 1 1 Encounter Details Date Type Department Care Team (Latest Contact Info) Description 01/10/2021 1:15 PM CDT Procedure visit [facility] Cardiology [address] [facility] [address] [place] [address] Atrial fibrillation, unspecified type (CMS/HCC) Social History Tobacco Use Types Packs/Day Years Used Date Smoking Tobacco: Never Assessed Sex and Gender Information Value Date Recorded Sex Assigned at Not on file 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 Barnes. Patient states he feels out of rhythm, but better . Not as SOB as before. Patient reports PCP increased metoprolol to 200mg every dayon 01/07/21. BP 112/80, left arm, sitting. HR 139 BPM. SpO2 97% on room air. EKG performed and givento KITTY Bolanos for review. Will forward to Dr. Barnes for review as well. documented in this encounter Plan of Treatment Not on file documented as of this encounter Visit Diagnoses Diagnosis Atrial fibrillation, unspecified type (HCC) documented in this encounter Historical Medications * This list may reflect changes made after this encounter. tamsulosin (FLOMAX) 0.4 mg extended release capsule Take 1 capsule (0.4 mg total) by mouth every morning 01/03/2021 simvastatin (ZOCOR) 40 mg tablet Take 40 mg by mouth nightly 12/03/2020 04/30/2021 metoprolol XL (TOPROL-XL) 50 mg extended release tablet Take 200 mg by mouth daily 01/03/2021 01/11/2021 lisinopriL (PRINIVIL,ZESTRIL ) 20 mg tablet Take 20 mg by mouth daily 11/19/2020 04/04/2021 Eliquis 5 mg tablet Take 5 mg by mouth every 12 (twelve) hours 01/03/2021 05/13/2021 added in this encounter Orders EKG Orders Without Results Count Last Ordered D ate First Ordered Date ECG 12-LEAD 1 01/10/2021 documented in this encounter Care Teams Client Solutions Manager Relationship Specialty Start Date End Date Tao Jeffers MD [address] [place] [address] PCP - General 12/18/11 documented as of this encounter
--- OUTSIDE RECORDS SUMMARY | 2024-07-30 20:18 | XMS_ITS | Encounter Summary ---
Author Organization [facility] Address [address] [facility] [place] [address] Care Team Providers Care Top Case Assembler Name Role Phone Tao Jeffers MD Primary Care Provider [phone] Encounter Details Date Type Department Care Team (Late st Contact Info) Description 01/11/2021 Telephone [facility] Medical [facility] Cardiology [address] [facility] [address] [place] [address] Yolie Chao NP [address] [facility] [address] [place] [address] Social History Tobacco Use Types Packs/Day Years Used Date Smoking Tobacco: Never Assessed Sex and Gender Information Value Date Recorded Sex Assigned at Not on file 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 Then 200 mg daily thereafter. 90 tablet 3 01/11/2021 1 metoprolol XL (TOPROL-XL) 100 mg 24 hr tablet Take 1 tablet (100 mg total) by mouth daily 30 tablet 11 01/11/2021 1 documented in this encounter Miscellaneous Notes * Telephone Encounter - Yolie Chao NP - 01/11/2021 12:47 PM CDT Thanks so much Yuko! * Telephone Encounter - Yuko Burden RN - 01/11/2021 10:03 AM CDT Message from CT: Please call pt to follow up from his ECG in the office yesterday. ??Dr. Barnes and I reviewed the ECG and because he is back in Afib with a rapid heart rate, we need to change medication. ??He has a cardiomyopathy, so it's very important to try to get him out of rapid afib as soon as possible to allow his heart muscle to get stronger again. We are going to start amiodarone: 1. Load amiodarone 400 mg t.i.d. x4 days, b.i.d. x4 days then daily for 2 weeks then 200 mg daily thereafter. 2. Because we are starting amiodarone, he needs to reduce metoprolol down to 100 mg daily. 3. ??Plan to repeat cardioversion the week of January 28 as long as he has not missed any doses of anticoagulation. 4. ??I still want him to keep the appt with me next week. Thank you. Called pt, spoke with him and his and reviewed message from CT. Pt verbalized instructions, they wrote down the instructions for amiodarone and metoprolol and readback. Rx sent to pharm. Pt sayjoycee is not interested in repeating a cardioversion, he said he spoke with AD about it and his PCP and doesn't feel his chances of converting are very good so he doesn't want to go thru with it. Discussed that adding the amiodarone could help with the chances of it being successful and pt was still not interested at this time. Pt said he doesn't feel back to normal but he definitely feels better than before. Pt said he will keep his f/u appt with CT next week. Will forward to CT and AD as FYI. documented in this encounter Plan of Treatment Not on file documented as of this encounter Visit Diagnoses Not on filedocumented in this encounter Discontinued Medications Medication Sig Discontinue Reason Start Date End Da te metoprolol XL (TOPROL-XL) 50 mg extended release tablet Take 200 mg by mouth daily Reorder 01/03/2021 01/11/2021 documented as of this encounter Care Teams Top Case Assembler Relationship Specialty Start Date End Date Tao Jeffers MD [address] [place] [address] PCP - General 12/18/11 documented as of this encounter
--- OUTSIDE RECORDS SUMMARY | 2024-07-30 20:29 | XMS_ITS | Data Portability ---
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 This a be considered stage II certainly approaching stage III. That seems to be the primary cause of his radial sided wrist pain. Interestingly, he has his greatest tenderness at the Osorio and radial edges of the CMC joint and has minimal degenerative changes of the CMC joint radiographically. There is no subluxation CMC joint L osteophyte Formation. I have discussed options with him. He is not a candidate for oral nonsteroidal anti-inflammatory medications because he takes Eliquis and would have cardiac risk as well. I have talked about the option of a cortisone shot would like to try this. I discussed the risk of infection of the risk of hematoma formation the joint due to his being on blood thinner knee wish to try this. After ChloraPrep prep, 10 mg of Kenalog and 1 cc of 0.5% ropivacaine were injected into the gap the radioscaphoid dissociation without difficulty knee tolerated this well and immediately after the injection he noticed vast improvement of the tenderness of the dorsum of his wrist. He continued to have severe tenderness at the CMC joint and after ChloraPrep prep, 5 mg Kenalog 0.5 cc of 0.5% ropivacaine were injected the CMC joint he tolerated this well also. I have discussed with him that he should try to avoid overuse for the next few days and long-term he may need to avoid extremely strenuous activities of the right hand which could cause overload and flare-up of his wrist pain again. The cortisone shots can be repeated if necessary and helpful. I do not know that he would be considered an appropriate candidate for surgery of his symptoms became intractable I discussed with him that my partner Dr. Tompkins performs the surgical procedures for this problem in our practice. I am happy to see him back on an as-needed basis. With respect to using bracing, if he becomes asymptomatic he does not need to use the brace. If he has residual symptoms wearing the brace may help. 30 minutes were spent total care this patient more than half the time spent in vigt-aq-[id number] care. [email or web address] Not available 11/28/2022 17:56:59 02/20/2023 02/20/2023 HPI: Patient returns. He is here for cortisone injection into the right 1st CMC joint in the right scaphoid to radial joint. He had injections in both these areas 3 months ago which did help. Symptoms have recurred. He does use an letc-mah-tiyrojd wrist splint during the day which does help with his wrist pain. He still gets pain however with gripping and holding her twisting using the right hand. He is unable take anti-inflammatori es due to the fact he is on Eliquis chronically. He does use Tylenol which does not give much relief. He wished to have additional injections today. Physical exam patient has moderate tenderness over the right 1st CMC joint palpation. Moderate pain with grind 1st CMC joint. He is tender over the scaphoid or radial articulation. There is no definite swelling in the wrist or hand. He has an adducted thumb. No numbness tingling in the hand. After ChloraPrep used on skin 5 mg Kenalog and 1 cc of 0.5% ropivacaine was injected into the right 1st CMC joint and the same injection was given into the right scaphioradial joint. . 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 Shot 3 months ago did give him good relief for almost 2 months. He wishes to continue with injections. He can repeat this in another 3 months and he will keep that in mind. He will call when he feels he needs additional injection. 20 minutes was spent in treatment patient more than half of this in irqw-lu-kcsk conversation Not available 02/20/2023 10:21:32 06/26/2023 06/26/2023 HPI: Patient returns. He is here for cortisone injection into the right 1st CMC joint and right scaphoid radial joint. He had an injection in January of this year. He states that this lasted for about 2-3 months with excellent relief. His symptoms have gradually recurred. He wished to have additional injections today. He is not a candidate for anti-inflammatory medication, he is on Eliquis chronically. He does use a brace for his wrist at times but not on a regular basis. Physical exam: 82-year-old male very alert pleasant. He has mild tenderness over the 1st CMC joint right thumb. He also has moderate tenderness over the distal radial scaphoid joint. There is no redness or warmth noted. He has pain with range of motion of the wrist. No numbness or tingling in the fingers. 2+ radial pulse. After ChloraPrep was used on skin 5 mg Kenalog and 1 cc of 0.5% ropivacaine was injected into the right 1st CMC joint and into the right scapho radial joint. Patient tolerated the injections well. Impression: 82-year-old male has rather severe arthritis right wrist at the scaphoid radial joint. 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 Shots continue to give him good benefit. We did talk briefly about using Voltaren gel in these areas as this may help with his symptoms. I also recommended that he use his wrist brace on a more regular basis as this will help take stress off the wrist joint hopefully improve his symptoms as well. He call when he feels he needs an additional injection. 20 minutes was spent in treatment patient more than half this in rydc-cf-[id number] conversation Not available 06/26/2023 09:10:52 Plan of Treatment Reminders Order Date Submit Date Provider Last Modified By Organization Details Last Modified Time Details Appointments None recorded. Lab None recorded. Referral None recorded. Procedures injection/a spiration joint/bursa (PROC) - in office procedure, administere d by provider 2022 023 [email or web address] In-Office Order, Internal Use Only DO Not Attach Compendium DO Not Attach Compendium, Do Not Delete/merge, [id number] 13:28:04 injection/a spiration joint/bursa (PROC) - in office procedure, administere d by provider 2022 023 [email or web address] In-Office Order, Internal Use Only DO Not Attach Compendium DO Not Attach Compendium, Do Not Delete/merge, [id number] 09:38:40 injection/a spiration joint/bursa (PROC) - in office procedure, administere d by provider 2022 023 In-Office Order, Internal Use Only DO Not Attach Compendium DO Not Attach Compendium, Do Not Delete/merge, [id number] 08:42:15 Surgeries None recorded. Imaging None recorded. Medication Orders Kenalog 10 mg/mL suspension for injection [address] [facility] [address] [id number], [address], [place], [id number], 3 17:31:37 ropivacaine (PF) 5 mg/mL (0.5 %) injection solution [address] [address] [facility]108[facility], [address], [place], [id number], 3 17:31:37 Kenalog 10 mg/mL suspension for injection 2022 023 [facility], [address], [place], [id number], 3 17:30:05 ropivacaine (PF) 5 mg/mL (0.5 %) injection solution 2022 023 [facility]384[facility], [address], [place], [id number], 3 17:30:05 Kenalog 10 mg/mL suspension for injection 2022 023 [place] [address] [facility] #25069, [address] [facility], [place], [place], [id number], 3 11:34:53 ropivacaine (PF) 5 mg/mL (0.5 %) injection solution 2022 023 [facility]75[facility], [address] [facility], [place], [place], [id number], 3 11:34:53 Patient TargetsNo targets recorded. Patient InstructionsNo instructions recorded. Reason for Referral None Reported. Results Created Date Observation Date Name Description Value Unit Range Abnormal Flag Note LastModifiedBy Organization Detail LastModifiedTime 12/02/19 23 11/22/2022 XR, wrist No observ ation record ed. [email or web address] Not Available 2022 12:22:32 Result Notes None recorded. Problems Name Problem SNOMED Code Status Onset Date Resolution Date Notes Provider Name and Address Organization Details Recorded Time Pain in wrist 53005200 Active 2022 Candi Navarro RMA null, [place] [facility] 3 12:08:53 Osteoarthritis 609606033 Active 2022 Candi Navarro RMA null, [place] [facility] 3 09:17:25 Osteoarthritis of wrist 148707182 Active 2022 Candi Navarro RMA null, [place] [facility] 3 08:40:51 Problem Notes None recorded. Procedures Surgical History Date Name Laterality Status Provider Name and Address Organization Details Recorded Time Colon Surgery completed JOEL TorresA [place] [facility] [employer] 11/28/2022 12:08:02 Imaging Results Imaging Date Name Status LastModified by Organiz ation Details LastModified Time 11/22/2022 XR, wrist completed [email or web address] Information no t available 12/01/2022 12:22:32 Procedure Notes None recorded. Medical Equipment None Reported. Allergies Allergen ID Allergen Name Allergen Category Reaction Reaction Severity Criticality Documentation Date Start Date Code Code System Note Provider Name and Address Organization Details Recorded Time 04011 Substance with sulfonami de structure and antibacte rial mechanism of action (substanc e) medicatio n Not available Not available Not available 11/28/2022 [id number] SNRICKY Bowman, [place] [facility] [employer] 3 12:06:34 Medications Name Sig Start Date Stop Date Status Note LastModified by Organization Details LastModified Time atorvastati n 80 mg tablet active Not Available Not Available Not Available azithromyci n 250 mg tablet 11/28 completed Not Available Not Available Not Available metoprolol succinate ER 50 mg tablet,exte nded release 24 hr TAKE 3 TABLETS BY MOUTH EVERY EVENING active Not Available Not Available No t Available prednisone 20 mg tablet TAKE 1 TABLET BY MOUTH DAILY 06/26 completed Not Available Not Available Not Available sildenafil 100 mg tablet TAKE 1 TABLET BY MOUTH EVERY DAY NEEDED FOR SEXUAL ACTIVITY. ADMINISTE R 30 MINUTES TO 4 HOURS BEFORE ACTIVITY active Not Available Not Available No t Available tamsulosin 0.4 mg capsule TAKE 1 CAPSULE BY MOUTH EVERY DAY active Not Available Not Available No t Available Kenalog 10 mg/mL suspension for injection in office 2022 active ND: 0003- 0494- 20 Not Available Not Available Not Available losartan 25 mg tablet active Not Available Not Available No t Available furosemide 20 mg tablet TAKE 1 TABLET BY MOUTH EVERY DAY 11/28 completed Not Available Not Available Not Available ipratropium bromide 21 mcg (0.03 %) nasal spray SPRAY TWICE IN EACH NOSTRIL TWICE DAILY DIRECTED active Not Available Not Available No t Available amoxicillin 875 mg-potassiu m clavulanate 125 mg tablet TAKE 1 TABLET BY MOUTH TWICE DAILY UNTIL ALL GONE 06/26 completed Not Available Not Available Not Available Brilinta 90 mg tablet TAKE 1 TABLET BY MOUTH EVERY 12 HOURS 11/28 completed Not Available Not Available Not Available ropivacaine (PF) 5 mg/mL (0.5 %) injection solution in office 2022 active Not Available Not Available Not Avai lable Eliquis 5 mg tablet active Not Available Not Available No t Available Entresto 97 mg-103 mg tablet TAKE 1 TABLET BY MOUTH TWICE DAILY 02/20 completed Not Available Not Available Not Available Entresto 49 mg-51 mg tablet TAKE 1 TABLET BY MOUTH TWICE DAILY active Not Available Not Available No t Available Vitals Date Recorded Body height Body mass index (BMI) Body weight Provider Name and Address Organization Details Last Updated DateTime 11/28/2022 175.26 cm 27.6 kg/m2 63419.77 g RICKY Torres [facility] [employer] [facility] 11/28/2022 12:43:58 Date Recorded Body height Provider Name an d Address Organization Details Last Updated DateTime 02/20/2023 175.26 cm Candi Navarro Cyr[facility] [employer] [facility] 02/20/2023 09:13:06 Date Recorded Body height Provider Name an d Address Organization Details Last Updated DateTime 06/26/2023 175.26 cm Candi Navarro [facility] [employer] [facility] 06/26/2023 08:40:02 Social History None recorded. Functional Status None recorded. Mental Status None recorded. Family History Nothing Reported. Medical History No medical history recorded. Past Encounters Encounter ID Performer Location Encounter Start Date Encounter Closed Date Diagnosis/Indication Diagnosis SNOMED-CT Code Diagnosis ICD10 Code [id number] Kamari Vizcarra MD [facility] [place] [facility] [place] [address] [place] [address] 11/28/2022 11:44:43 12/01/2022 09:41:35 Pain in wrist 75498293 M25.531 [id number] ARIEL Orellana [facility] [place] [facility] [place] [address] [place] [address] 02/20/2023 09:10:39 02/20/2023 10:26:08 Osteoarthritis 501222527 M19.741 [id number] ARIEL Orellana [facility] [place] [address] [place] [address] 06/26/2023 08:24:45 06/26/2023 09:14:26 Osteoarthritis of wrist 322811847 M19.031 Health Concerns Section Related Observation LastModified by Organization Detai ls LastModified Time None Recorded Concern Status LastModified by Organization Details LastModified Time None Recorded Advance Directives Directive None Recorded Payers Encounter Date Sequence Insurance Name Policy Number Policy Miller Covered Member ID Miller Member ID Guarantor Name 11/28/2022 1 [employer] (MEDICARE REPLACEMENT/A DVANTAGE - POS) [id number] Lm Jimenez [id number] Lm Jimenez 02/20/2023 1 [facility] (MEDICARE REPLACEMENT/A DVANTAGE - POS) [id number] Lm Jimneez [id number] Lm Jimenez 06/26/2023 1 [facility] (MEDICARE REPLACEMENT/A DVANTAGE - POS) [id number] Lm Jimenez [id number] Lm Jimenez Notes Date Note Type Note Provider Name and Address Organization Details Recorded Time 3 text/html patient is an 82-year-old gentleman referred by Dr. Jeffers for evaluation of his right wrist. He developed spontaneous onset of pain in the radial aspect of his wrist approximately 3 months ago. He tried bracing off and on for last 3 months she has tried 3 of them. He can not lift a coffee pot for example as he is supinates his and enough. Certain turning movements cause severe pain. He has no pain at rest. 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 He did have a mass that was injected in the center of his wrist in his younger adult years which sounds very much like a dorsal ganglion cyst. He had an injection and [address] without surgery. He had x-rays performed on 11/13 of the right wrist and I reviewed the images and radiologist's report. He has severe ojnp-ql-wsly osteoarthritis the radioscaphoid articulation. There is marked widening of the scapholunate interval and associated palmar flexion of the scaphoid With degenerative cyst in distal pole of the scaphoid and relative dorsal intercalated segmental instability pattern. The radiolunate joint space remains normal. 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 Is difficult to see on the single AP view but there may be scaphotrapezial trapezoidal degenerative change. Minimal CMC joint degenerative changes noted. Moderate thumb metacarpophalangeal joint arthritis noted His past medical history is significant for coronary artery stents 2001 1020, pacemaker April of 2021. He takes and tress toe which suggests he has some heart failure. He takes Eliquis 5 mg twice a day. Takes furosemide 81 mg aspirin MiraLax Zyrtec and metoprolol. Kamari Vizcarra MD [address] [facility], [facility] [address], [place], [address], [place] [facility] 11/28/2022 17:57:15
--- OUTSIDE RECORDS SUMMARY | 2024-07-30 20:37 | XMS_ITS | Encounter Summary ---
Author Organization [facility] Healthcare Address [address] [place] [address] Care Team Providers Care Paranormal Investigator Name Role Phone Tao Jeffers MD Primary Care Provider Victor M Barnes MD Unavailable Zane Lopez MD Unavailable Miscellaneous, Not In File Unavailable Unava ilable Encounter Details Date Type Department Care Team (Late st Contact Info) Description 05/12/2024 Telephone [facility] Medical [facility] Cardiology [address] [address] Ar Esteves MD [address] [place] [id number] Social History Tobacco Use Types Packs/Day Years Used Date Smoking Tobacco: Former Smokeless Tobacco: Never Sex and Gender Information Value Date Recorded Sex Assigned at Not on file 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
--- OUTSIDE RECORDS SUMMARY | 2024-07-30 20:37 | XMS_ITS | Encounter Summary ---
Author Organization [facility] Healthcare Address [address] [place] [address] Care Team Providers Care Discovery Manager Name Role Phone Tao Jeffers MD Primary Care Provider [phone] Victor M Barnes MD Unavailable Zane Lopez MD Unavailable Miscellaneous, Not In File Unavailable Unava ilable Encounter Details Date Type Department Care Team (Late st Contact Info) Description 03/10/2024 Telephone [facility] Medical Group Cardiology [address] [place] [address] Ar Esteves MD [address] [address] Social History Tobacco Use Types Packs/Day Years Used Date Smoking Tobacco: Former Smokeless Tobacco: Never Sex and Gender Information Value Date Recorded Sex Assigned at Not on file 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 Patient notified and advised to keep taking the ASA as well as the Eliquis per last OV note. He voiced understanding. * Telephone Encounter - Joyce Roblero 03/10/2024 9:32 AM CDT Pt requesting samples of Entresto 49-51 mg tablet as well as Eliquis 5 mg tablet. Pt also requesting a call back in regard to whether or not he should continue taking aspirin (Adult Low Dose Aspirin)81 mg enteric coated tablet since he is now taking Eliquis. Contact:[phone] documented in this encounter Plan of Treatment Not on file documented as of this encounter Visit Diagnoses Not on filedocumented in this encounter Care Teams Discovery Manager Relationship Specialty Start Date End Date Tao Jeffers MD [address] [place] [address] PCP - General 12/18/11 Victor M Barnes MD [address] [place] [address] Consulting Physician Cardiology 05/16/21 Zane Lopez MD [address] [place] [address] Consulting Physician Electrophysiology 05/16/21 Miscellaneous, Not In File 05/23/21 documented as of this encounter
--- OUTSIDE RECORDS SUMMARY | 2024-07-30 20:37 | XMS_ITS | Encounter Summary ---
Author Organization [facility] Healthcare Address [address] [place] [address] Care Team Providers Care Clinical Phlebotomist Name Role Phone Tao Jeffers MD Primary Care Provider [phone] Victor M Barnes MD Unavailable Zane Lopez MD Unavailable Miscellaneous, Not In File Unavailable Unava ilable Reason for Visit * Reason Comments Atrial Fibrillation Coronary Artery Disease Hyperlipidemia 8 mo f/u Encounter Details Date Type Department Care Team (Late st Contact Info) Description 07/11/2024 9:15 AM SPEECH/LANGUAGE THERAPIST Office Visit 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 Gender Identity Not on file Sexual Orientation Not on file documented as of this encounter Last Filed Vital Signs Vital Sign Reading Time Taken Comments Blood Pressure 150/84 07/11/2024 9:23 AM SPEECH/LANGUAGE THERAPIST Pulse 70 07/11/2024 9:23 AM SPEECH/LANGUAGE THERAPIST Temperature - - Respiratory Rate - - Oxygen Saturation 97% 07/11/2024 9:23 AM SPEECH/LANGUAGE THERAPIST Inhaled Oxygen Concentration - - Weight 81.2 kg (179 lb) 07/11/2024 9:23 AM SPEECH/LANGUAGE THERAPIST Height 180.3 cm (5' 11 ) 07/11/2024 9:23 AM SPEECH/LANGUAGE THERAPIST Body Mass Index 24.97 07/11/2024 9:23 AM SPEECH/LANGUAGE THERAPIST documented in this encounter Progress Notes * Ar Esteves MD - 07/11/2024 9:15 AM CST Images from the original note were not included. [facility] Medical Group-Cardiology DATE OF VISIT: 07/11/2024 CHIEF COMPLAINT Chief Complaint Patient presents with Atrial Fibrillation Coronary Artery Disease Hyperlipidemia 8 mo f/u HPI Lm Jimenez is a 84 y.o. male with a PMHx of coronary artery disease s/p PCI in 1999, HTN, colon cancer in 2003, cataracts, BPH, pneumonia a few years ago which required hospitalization and appendectomy. He presented to [facility] on 01/01/2021 under the advice of [...] loaded on amiodarone. 01/18/21 Hospital follow-up with [facility] - Lm Jimenez comes to the office [...] a presyncopal episode: he fell into the [place] bin head first, got himself up [...] to this encounter. Coronary artery disease involving jackson coronary artery of jackson heart without angina pectoris (Primary) Asymptomatic Chronic HFrEF (heart failure with reduced ejection fraction) (CMS/HCC) (HCC) Compensated Paroxysmal atrial fibrillation (CMS/HCC) ([facility]) Status post AV inocente ablation and biventricular [...] sooner as clinically indicated. Ar Esteves MD, [facility] CH/LANGUAGE THERAPIST documented in this encounter Plan of Treatment Not on file documented as of this encounter Visit Diagnoses Diagnosis Coronary artery disease involving jackson coronary artery of jackson heart without angina pectoris- Primary Chronic HFrEF (heart failure with reduced ejection fraction) (CMS/HCC) (HCC) 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 Paroxysmal atrial fibrillation (CMS/HCC) (HCC) Atrial fibrillation HTN (hypertension), benign Essential hypertension, benign documented in this encounter Care Teams Clinical Phlebotomist Relationship Specialty Start Date End Date Tao Jeffers MD [address] [place] [address] PCP - General 12/18/11 Victor M Barnes MD [address] [place], [place] [address] Consulting Physician Cardiology 05/16/21 Zane Lopez MD [address] [place] [address] Consulting Physician Electrophysiology 05/16/21 Miscellaneous, Not In File 05/23/21 documented as of this encounter
--- OUTSIDE RECORDS SUMMARY | 2024-07-30 20:37 | XMS_ITS | Referral Summary ---
Author Organization [place] [address] Address [address] [place] [address] Care Team Providers Care Community Health Agent Name Role Phone Tao Jeffers MD Primary Care Provider [phone] Victor M Barnes MD Unavailable [phone] Zane Lopez MD Unavailable [phone] Miscellaneous, Not In File Unavailable Unava ilable Encounters Date Type Department Care Team Description 07/29/2024 Telephone [facility] [address] [place] [address] [address] [place] [address] Ar Esteves MD Shortness of Breath 07/11/2024 8:30 AM BOWLING BALL MOLD ASSEMBLER Ancillary Procedure [address] [place] [address] Biventricular implantable cardioverter-defibril lator (ICD) in situ (Primary Dx); Ischemic cardiomyopathy; Paroxysmal atrial fibrillation (CMS/HCC) (HCC); Chronic HFrEF (heart failure with reduced ejection fraction) (CMS/HCC) (HCC); S/P AV (atrioventricular) inocente ablation; Permanent atrial fibrillation (CMS/HCC) (HCC) 07/11/2024 9:15 AM BOWLING BALL MOLD ASSEMBLER Office Visit [facility] [address] [place] [address] [address] [place] [address] Ar Esteves MD 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 [place] (Card-Follows). Tyra Garrett S/P AV (atrioventricular) inocente ablation 021 Chronic HFrEF (heart failure with reduced ejection fraction) ([facility]) 07/03/2021 Paroxysmal atrial fibrillation ([facility]) Coronary artery disease invo lving absentee-shawnee coronary artery of absentee-shawnee heart without angina pectoris 05/01/2021 Cardiomyopathy 05/01/2021 Mixed dyslipidemia 05/01/2021 HTN (hypertension), benign 05/01/2021 Chronic anticoagulation 05/01/2021 S/P coronary artery stent placement 05/01/2021 CAMACOH (dyspnea on exertion) 05/01/2021 Resolved Problems Problem Noted Date Diagnosed Date Resolved Date S/P biventricular cardiac pacemaker procedure 07/03/2007/03/2021 At risk for amiodarone toxic ity with terminal system operator use 05/01/2021 07/03/2021 Social History Tobacco Use Types Packs/Day Years Used Date Smoking Tobacco: Former Smokeless Tobacco: Never Tobacco Cessation:Counseling Given: Not Answered Sex and Gender Information Value Date Recorded Sex Assigned at Not on file Legal Sex Male 12:29 AM BOWLING BALL MOLD ASSEMBLER Gender Identity Not on file Sexual Orientation Not on file Last Filed Vital Signs Vital Sign Reading Time Taken Comments Blood Pressure 150/84 07/11/2024 9:23 AM BOWLING BALL MOLD ASSEMBLER Pulse 70 07/11/2024 9:23 AM BOWLING BALL MOLD ASSEMBLER Temperature 2.4 ??C (36.4 ??F) 06/10/2021 11:06 AM CS T Respiratory Rate 16 04/21/2023 9:16 AM CDT Oxygen Saturation 97% 07/11/2024 9:23 AM BOWLING BALL MOLD ASSEMBLER Inhaled Oxygen Concentration - - Weight 81.2 kg (179 lb) 07/11/2024 9:23 AM BOWLING BALL MOLD ASSEMBLER Height 180.3 cm (5' 11 ) 07/11/2024 9:23 AM BOWLING BALL MOLD ASSEMBLER Body Mass Index 24.97 07/11/2024 9:23 AM BOWLING BALL MOLD ASSEMBLER Plan of Treatment Not on file Medical Devices Implanted Type Area Shipping And Receiving Weigher Device Identifier Shelf Expiration Date Model / Serial / Lot G[employer] Up [employer] Inc [id number] System 6-12fr Mvp Venous Closure Vascade - [id number] - [id number] Implanted:Qty : 1 on 06/10/2021 by Zane Lopez MD at [facility] Collagen [employer] Inc 03/20/2023 [id number] [id number] / [id number] 1B / [id number] Ji Vascular [id number] Defib Cardiac [id number] [place] Hf Df4 Is-4 Is-1 Cnctr - [id number] - [id number] Implanted:Qty : 1 on 05/23/2021 by Zane Lopez MD at [facility] ICD Ji Vascular [id number] 01/23/2023 CDHFA 500Q / [id number] / St Lne [employer] Inc 7120q/65 Durata 7fr 65cm 2 Coil Df-4 True Bipolar Active Fixation - [id number] - [id number] Implanted:Qty : 1 on 05/23/2021 by Zane Lopez MD at [facility] Lead [employer] Len Medical Sc Inc [id number] 02/24/2024 7120Q/65 / [id number] / [employer] Len [employer] Sc Inc 1458q/86 Quartet 5fr [id number] 4 Electrode Is-4 Connector Steerable Tip - [id number] - [id number] Implanted:Qty : 1 on 05/23/2021 by Zane Lopez MD at [facility] Lead [employer] Len Medical Sc Inc [id number] 02/24/2024 1458Q/86 / [id number] / Procedures Procedure Name Priority Date/Time Associated Diagnosis Comments DEVICE CHECK - IN OFFICE Routine 07/11/2024 7:53 AM BOWLING BALL MOLD ASSEMBLER Ischemic cardiomyopathy Paroxysmal atrial fibrillation (CMS/HCC) (HCC) from Last 3 Months Results * DEVICE CHECK - IN OFFICE (07/11/2024 7:53 AM BOWLING BALL MOLD ASSEMBLER) Anatomical Region Laterality Modality Other Narrative 07/13/2024 5:24 PM BOWLING BALL MOLD ASSEMBLER my[place] BI-V ICD imp on 05/23/21 for ICM/CHF/PAF, s/p AVN ablation on 06/10/21. ??[place]on (Card-Follows) - [place]. Office VVIR BIV Pacemaker ICD device interrogation performed by [employer] company liability claims representative. Transmission attached. Stable lead impedances, pacing [...] M Barnes MD [facility] Final Result from Last 3 Months Insurance MEDICARE SOL[facility]IONS [facility] MEDICARE Address: [facility] [address] [place] [address] MEDICARE SOLUTIONS [facility] MEDICARE Address: [address] [address] [place] [address] [facility] MDCR HMO REF [facility] MED[facility] Address: [address] [address] [place] [address] Care Teams Community Health Agent Relationship Specialty Start Date End Date Tao Jeffers MD [address] [place], [place] [address] PCP - General 12/18/11 Victor M Barnes MD [address] [place], [place] [address] Consulting Physician Cardiology 05/16/21 Zane Lopez MD [address] [place], [place] [address] Consulting Physician Electrophysiology 05/16/21 Miscellaneous, Not In File 05/23/21
--- OUTSIDE RECORDS SUMMARY | 2024-07-30 20:37 | XMS_ITS | Encounter Summary ---
Author Organization [facility] Healthcare Address [address] [place] [address] Care Team Providers Care Feedlot Manager Name Role Phone Tao Jeffers MD Primary Care Provider Victor M Barnes MD Unavailable [phone] Zane Lopez MD Unavailable [phone] Miscellaneous, Not In File Unavailable Unava ilable Reason for Visit * Cardiology (Routine) - Closed Specialty Diagnoses / Procedures Referred By Contac t Referred To Contact Diagnoses Ischemic cardiomyopathy Paroxysmal atrial fibrillation (CMS/HCC) (HCC) Procedures DEVICE CHECK - IN OFFICE Victor M Barnes MD [address] [place] [address] Phone: tel: fax: [facility] Referral ID Status Reason Start Date Expiration Date Visits Re quested Visits Authorized [id number] Closed 02/13/2023 07/19/2024 1 1 Encounter Details Date Type Department Care Team (Latest Contact Info) Description 07/11/2024 8:30 AM OFFC SPEC Ancillary Procedure [facility] Cardiology [address] [place] [address] Biventricular implantable cardioverter-defibril lator (ICD) [...] on file Legal Sex Male 12:29 AM OFFC SPEC Gender Identity Not on file Sexual Orientation Not on file documented as of this encounter Plan of Treatment Not on file documented as of this encounter Procedures Procedure Name Priority Date/Time Associated Diagnosis Comments DEVICE CHECK - IN OFFICE Routine 07/11/2024 7:53 AM OFFC SPEC Ischemic cardiomyopathy Paroxysmal atrial fibrillation (CMS/HCC) (HCC) documented in this encounter Results * DEVICE CHECK - IN OFFICE (07/11/2024 7:53 AM OFFC SPEC) Anatomical Region Laterality Modality Other Narrative 07/13/2024 5:24 PM OFFC SPEC [place] BI-V ICD imp on 05/23/21 for ICM/CHF/PAF, s/p AVN ablation on 06/10/21. ??[place] (Card-Follows) - [place]. Office VVIR BIV Pacemaker ICD device interrogation performed by [employer] company fuels sales representative. Transmission attached. Stable lead impedances, [...] fibrillation documented in this encounter Care Teams Feedlot Manager Relationship Specialty Start Date End Date Tao Jeffers MD [address] [place] [address] PCP - General 12/18/11 Victor M Barnes MD [address] [place] [address] Consulting Physician Cardiology 05/16/21 Zane Lopez MD [address] [place] [address] Consulting Physician Electrophysiology 05/16/21 Miscellaneous, Not In File 05/23/21 documented as of this encounter
--- OUTSIDE RECORDS SUMMARY | 2024-07-30 20:37 | XMS_ITS | Encounter Summary ---
Author Organization [facility] Healthcare Address [address] [place] [address] Care Team Providers Care Delivery Recruiter Name Role Phone Tao Jeffers MD Primary Care Provider [phone] Victor M Barnes MD Unavailable [phone] Zane Lopez MD Unavailable [phone] Miscellaneous, Not In File Unavailable Unava ilable Reason for Visit * Cardiology (Routine) - Pending Review Specialty Diagnoses / Procedures Referred By Contac t Referred To Contact Diagnoses Paroxysmal atrial fibrillation (CMS/HCC) (HCC) Ischemic cardiomyopathy Procedures DEVICE CHECK - REMOTE Victor M Barnes MD [address] [place] [address] Phone: tel: fax: [facility] Referral ID Status Reason Start Date Expiration Date V isits Requested Visits Authorized [id number] Pending Review 02/13/2023 08/16/2024 1 1 Encounter Details Date Type Department Care Team (Latest Contact Info) Description 03/08/2024 9:15 AM CDT Ancillary Procedure [facility] Medical Group Cardiology [address] [place] [address] H/O atrioventricular inocente ablation (Primary Dx); [...] on file Legal Sex Male 12:29 AM DIRECTIONAL BORE OPERATOR Gender Identity Not on file Sexual [...] Other Narrative 03/16/2024 12:58 PM CDT Ji [place] BI-V ICD imp on 05/23/21 for ICM/CHF/PAF, s/p AVN ablation on 06/10/21. [place] (Card-Follows). [facility] Routine VVIR ICD Remote. Transmission attached. Battery [...] situ documented in this encounter Care Teams Delivery Recruiter Relationship Specialty Start Date End Date Tao Jeffers MD [address] [place] [address] PCP - General 12/18/11 Victor M Barnes MD [address] [place] [address] Consulting Physician Cardiology 05/16/21 Zane Lopez MD [address] [place] [address] Consulting Physician Electrophysiology 05/16/21 Miscellaneous, Not In File 05/23/21 documented as of this encounter
--- OUTSIDE RECORDS SUMMARY | 2024-07-30 20:37 | XMS_ITS | Encounter Summary ---
Author Organization [facility] Healthcare Address [address] [place] [address] Care Team Providers Care Rotary Peel Oven Tender Name Role Phone Tao Jeffers MD Primary Care Provider [phone] Victor M Barnes MD Unavailable Zane Lopez MD Unavailable Miscellaneous, Not In File Unavailable Unava ilable Encounter Details Date Type Department Care Team (Late st Contact Info) Description 12/08/2023 Telephone [facility] Medical Group Cardiology [address] [place] [address] Ar Esteves MD [facility] [address] Social History Tobacco Use Types Packs/Day Years Used Date Smoking Tobacco: Former Smokeless Tobacco: Never Sex and Gender Information Value Date Recorded Sex Assigned at Not on file Legal Sex Male 12:29 AM CORRECTIVE AND MANUAL ARTS THERAPIST Gender Identity Not on file Sexual Orientation Not on file documented as of this encounter Miscellaneous Notes * Telephone Encounter - Hodan Locke MA - 12/08/2023 11:39 AM CDT No samples of Eliquis at this time but should have some on of this week. Samples of Entresto at the front line leader for patient pick out hand. LM advising patient. * Telephone Encounter - Lena Crawford - 12/08/2023 11:14 AM CDT Pt requesting samples of Eliquis 5 mg and Entresto 49-51 mg. Contact: documented in this encounter Plan of Treatment Not on file documented as of this encounter Visit Diagnoses Not on filedocumented in this encounter Care Teams Rotary Peel Oven Tender Relationship Specialty Start Date End Date Tao Jeffers MD [address] [place] [address] PCP - General 12/18/11 Victor M Barnes MD [address] [place], [place] [address] Consulting Physician Cardiology 05/16/21 Zane Lopez MD [address] [place], [place] [address] Consulting Physician Electrophysiology 05/16/21 Miscellaneous, Not In File 05/23/21 documented as of this encounter
--- OUTSIDE RECORDS SUMMARY | 2024-07-30 20:37 | XMS_ITS | Clinical Summary ---
Author Organization [facility] [address] Address [address] [place] [address] Care Team Providers Care Transmission Engineer Name Role Phone Tao Jeffers MD Primary Care Provider [phone] Victor M Barnes MD Unavailable [phone] Zane Lopez MD Unavailable [phone] Miscellaneous, Not In File Unavailable Unava ilable [...] (ICD) in situ 07/03/2021 Overview (02/16/2023): Ji [place] BI-V ICD imp on 05/23/21 for ICM/CHF/PAF, s/p AVN ablation on 06/10/21. [place] (Card-Follows). Tyra Garrett S/P AV (atrioventricular) inocente ablation 021 Chronic HFrEF (heart failure with reduced ejection fraction) (CMS/HCC) 07/03/2021 Paroxysmal atrial fibrillation (CMS/HCC) 021 Coronary artery disease invo lving [place]ival[place] coronary artery of [place] heart without angina pectoris 05/01/2021 Cardiomyopathy 05/01/2021 Mixed dyslipidemia 05/01/2021 HTN (hypertension), benign 05/01/2021 Chronic anticoagulation 05/01/2021 S/P coronary artery stent placement 05/01/2021 CAMACHO (dyspnea on exertion) 05/01/2021 Resolved Problems Problem Noted Date Diagnosed Date Resolved Date S/P biventricular cardiac pacemaker procedure 07/03/2007/03/2021 At risk for amiodarone toxic ity with residential use 05/01/2021 07/03/2021 Encounters Date Type Department Care Team Description 07/29/2024 Telephone [facility] Medical Group Cardiology [address] [place] [address] Ar Esteves MD Shortness of Breath 07/11/2024 9:15 AM HEALTH OFFICER Office Visit [facility] Medical [facility] Cardiology [address] [place] [address] Ar Esteves MD Coronary artery disease involving [place]ivalina coronary artery of kivalina heart without angina pectoris (Primary Dx); Chronic HFrEF (heart failure with reduced ejection fraction) (CMS/HCC) (HCC); Biventricular implantable cardioverter-defibril lator (ICD) in situ; Paroxysmal atrial fibrillation (CMS/HCC) (HCC); HTN (hypertension), benign 07/11/2024 8:30 AM HEALTH OFFICER Ancillary Procedure [facility] Medical [facility] Cardiology [address] [place] [address] Biventricular implantable cardioverter-defibril lator (ICD) in situ (Primary Dx); Ischemic cardiomyopathy; Paroxysmal atrial fibrillation (CMS/HCC) (HCC); Chronic HFrEF (heart failure with reduced ejection fraction) (CMS/HCC) (HCC); S/P AV (atrioventricular) inocente ablation; Permanent atrial fibrillation (CMS/HCC) (HCC) 05/12/2024 Telephone [facility] Medical [facility] Cardiology [address] [facility] [address] [place] [address] Ar Esteves MD from Last 3 [...] on file Legal Sex Male 12:29 AM HEALTH OFFICER Gender Identity Not on file Sexual Orientation Not on file Obstetrics History Last Filed Vital Signs Vital Sign Reading Time Taken Comments Blood Pressure 150/84 07/11/2024 9:23 AM HEALTH OFFICER Pulse 70 07/11/2024 9:23 AM HEALTH OFFICER Temperature 2.4 ??C (36.4 ??F) 06/10/2021 11:06 AM CS T Respiratory Rate 16 04/21/2023 9:16 AM CDT Oxygen Saturation 97% 07/11/2024 9:23 AM HEALTH OFFICER Inhaled Oxygen Concentration - - Weight 81.2 kg (179 lb) 07/11/2024 9:23 AM HEALTH OFFICER Height 180.3 cm (5' 11 ) 07/11/2024 9:23 AM HEALTH OFFICER Body Mass Index 24.97 07/11/2024 9:23 AM HEALTH OFFICER Plan of Treatment Health Maintenance Due Date [...] 11/30/2016, 08/03/2013 Medical Devices Implanted Type Area Business Operations Analyst Device Identifier Shelf Expiration Date Model / Serial / Lot [employer]iva Medical Inc [id number] System 6-12fr Mvp Venous Closure Vascade - [id number] - [id number] Implanted:Qty : 1 on 06/10/2021 by Zane Lopez MD at [facility] Collagen [employer] Inc 03/20/2023 800-612C-1 0U / [id number] 1B / [id number] Ji Vascular [id number] Defib Cardiac [id number] [place] Hf Df4 Is-4 Is-1 Cnctr - [id number] - [id number] Implanted:Qty : 1 on 05/23/2021 by Zane Lopez MD at [facility] ICD Ji Vascular [id number] 01/23/2023 CDHFA 500Q / [id number] / [employer] Len [employer] Inc 7120q/65 Durata 7fr 65cm 2 Coil Df-4 True Bipolar Active Fixation - [id number] - [id number] Implanted:Qty : 1 on 05/23/2021 by Zane Lopez MD at [facility] Lead [employer] Len Medical Sc Inc [id number] 02/24/2024 7120Q/65 / [id number] / [employer] Len [employer] Inc 1458q/86 Quartet 5fr [id number] 4 Electrode Is-4 Connector Steerable Tip - [id number] - [id number] Implanted:Qty : 1 on 05/23/2021 by Zane Lopez MD at [facility] Lead [employer] Len Medical [employer] Inc [id number] 02/24/2024 1458Q/86 / [id number] / Procedures Procedure Name Priority Date/Time Associated Diagnosis Comments DEVICE CHECK - IN OFFICE Routine 07/11/2024 7:53 AM HEALTH OFFICER Ischemic cardiomyopathy Paroxysmal atrial fibrillation (CMS/HCC) (HCC) from Last 3 Months Results * DEVICE CHECK - IN OFFICE (07/11/2024 7:53 AM HEALTH OFFICER) Anatomical Region Laterality Modality Other Narrative 07/13/2024 5:24 PM HEALTH OFFICER [employer] [place] BI-V ICD imp on 05/23/21 for ICM/CHF/PAF, s/p AVN ablation on 06/10/21. ??[place] (Card-Follows) - Gerry. Office VVIR BIV Pacemaker ICD device interrogation performed by [employer] company abrasives sales representative. Transmission attached. Stable lead impedances, pacing and sensing thresholds. Charge time and Shock impedance. Battery voltage- Ok , 8.6 years remaining to JIAN. BIVP-99 %. Presenting rhythm- BIV Paced. No Ventricular arrhythmias detected. ?? Medication: Eliquis, Toprol XL, Entresto. No programming changes made to device settings. See scanned report. [place] remote f/u 10/18/2024. Office device f/u expected in 15 months. Sonia Tomas, ANTHONY Victor M Barnes MD CV CARDIAC SERVICES PROC EDURES Final Result from Last 3 Months Insurance [facility]ICARE [facility] MEDICARE Address: [address] [place] [phone] [facility]IC[facility] MED[facility] Address: [place] [phone] [facility] MDCR HMO REF Care Teams Transmission Engineer Relationship Specialty Start Date End Date Tao Jeffers MD [address] [place] [address] PCP - General 12/18/11 Victor M Barnes MD [address] [place] [address] Consulting Physician Cardiology 05/16/21 Zane Lopez MD [address] [place] [address] Consulting Physician Electrophysiology 05/16/21 Miscellaneous, Not In File 05/23/21
--- OUTSIDE RECORDS SUMMARY | 2024-07-30 20:37 | XMS_ITS | Encounter Summary ---
Author Organization [facility] Healthcare Address [address] [place] [address] Care Team Providers Care Manager Hotel Name Role Phone Tao Jeffers MD Primary Care Provider [phone] Victor M Barnes MD Unavailable [phone] Zane Lopez MD Unavailable [phone] Miscellaneous, Not In File Unavailable Unava ilable Reason for Visit * Cardiology (Routine) - Closed Specialty Diagnoses / Procedures Referred By Contac t Referred To Contact Diagnoses Ischemic cardiomyopathy Procedures DEVICE CHECK - REMOTE Ceasar Rosas MD [address] [address] Phone: tel: fax: [facility] Medical Group Referral ID Status Reason Start Date Expiration Date Visits Re quested Visits Authorized [id number] Closed 09/03/2022 03/03/2024 1 1 Encounter Details Date Type Department Care Team (Latest Contact Info) Description 12/08/2023 8:45 AM CDT Ancillary Procedure [facility] Medical Group Cardiology [address] [facility] [address] [place] [phone] Atrial fibrillation, permanent (CMS/HCC) (HCC) [I48.21] (Primary [...] on file Legal Sex Male 12:29 AM TRAINING ASSOCIATE Gender Identity Not on file Sexual [...] Other Narrative 02/19/2024 2:23 PM CDT Ji [place] BI-V ICD imp on 05/23/21 for ICM/CHF/PAF, s/p AVN ablation on 06/10/21. ??[place] (Card-Follows) - [place]. Routine VVI ICD Remote. Transmission attached. Battery status-Ok, 5.4 years remaining to JIAN. Stable Charge time and Shock impedance. Stable lead impedances, pacing and sensing threshold. Presenting: BIV Paced Bi-V P->98 %. (No) Ventricular tachy arrhythmias detected. ?? Medication: Eliquis, Toprol XL, Entresto. Follow up: [place] remote f/u 03/08/2024. Sonia Tomas RN us Ceasar Rosas MD CV CARDIAC SERVICES PRO CEDURES Final Result documented in this encounter Visit Diagnoses Diagnosis Atrial fibrillation, permanent (CMS/HCC) ([facility]) [I48.21]- Primary Ischemic cardiomyopathy Other specified forms of chronic ischemic heart disease S/P AV (atrioventricular) inocente ablation [Z98.890] Other postprocedural status Chronic HFrEF (heart failure with reduced ejection fraction) (CMS/HCC) (HCC) [I50.22] 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 [Z95.810] documented in this encounter Care Teams Manager Hotel Relationship Specialty Start Date End Date Tao Jeffers MD [address] [place] [address] PCP - General 12/18/11 Victor M Barnse MD [address] [place] [address] Consulting Physician Cardiology 05/16/21 Zane Lopez MD [address] [place] [id number] Consulting Physician Electrophysiology 05/16/21 Miscellaneous, Not In File 05/23/21 documented as of this encounter
--- OUTSIDE RECORDS SUMMARY | 2024-07-30 20:38 | XMS_ITS | Encounter Summary ---
Author Organization [facility] Medical [facility] Address [address] [place] [address] Care Team Providers Care Pulverizer Feeder Name Role Phone Tao Jeffers MD Primary Care Provider [phone] Victor M Barnes MD Unavailable [phone] Zane Lopez MD Unavailable [phone] Miscellaneous, Not In File Unavailable Unava ilable Reason for Visit * Cardiology (Routine) - Closed Specialty Diagnoses / Procedures Referred By Contac t Referred To Contact Diagnoses Ischemic cardiomyopathy Procedures DEVICE CHECK - REMOTE Ceasar Rosas MD [address] [facility] [address], [place] [address] Phone: tel: fax: [facility] Medical [facility] Referral ID Status Reason Start Date Expiration Date Visits Re quested Visits Authorized [id number] Closed 09/03/2022 03/03/2024 1 1 Encounter Details Date Type Department Care Team (Latest Contact Info) Description 03/10/2023 10:45 AM CDT Ancillary Procedure [facility] Cardiology [address] [facility] [address] [place] [phone] Atrial fibrillation, unspecified type (HCC) [I48.91] (Primary [...] on file Legal Sex Male 12:29 AM BACON DE RINDER Gender Identity Not on file Sexual Orientation [...] Other Narrative 04/17/2023 2:51 PM CDT Ji [place] BI-V ICD imp on 05/23/21 for ICM/CHF/PAF, [...] [Z95.810] documented in this encounter Care Teams Pulverizer Feeder Relationship Specialty Start Date End Date Tao Jeffers MD [address] [place] [address] PCP - General 12/18/11 Victor M Barnes MD [address] [place] [address] Consulting Physician Cardiology 05/16/21 Zane Lopez MD [address] [place] [address] Consulting Physician Electrophysiology 05/16/21 Miscellaneous, Not In File 05/23/21 documented as of this encounter
--- OUTSIDE RECORDS SUMMARY | 2024-07-30 20:38 | XMS_ITS | Encounter Summary ---
Author Organization [facility] Address [address] [place] [address] Care Team Providers Care Learning And Development Analyst Name Role Phone Tao Jeffers MD Primary Care Provider [phone] Victor M Barnes MD Unavailable [phone] Zane Lopez MD Unavailable [phone] Miscellaneous, Not In File Unavailable Unava ilable Encounter Details Date Type Department Care Team (Late st Contact Info) Description 12/12/2022 Orders Only [facility] Cardiology [address] [place] [address] Provider, MD Suzie [address] [place] [address] Social History Tobacco Use Types Packs/Day Years Used Date Smoking Tobacco: Former Smokeless Tobacco: Never Sex and Gender Information Value Date Recorded Sex Assigned at Not on file Legal Sex Male 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
--- OUTSIDE RECORDS SUMMARY | 2024-07-30 20:38 | XMS_ITS | Encounter Summary ---
Author Organization [facility] Healthcare Address [address] [place] [address] Care Team Providers Care Nurse Special Name Role Phone Tao Jeffers MD Primary Care Provider [phone] Victor M Barnes MD Unavailable [phone] Zane Lopez MD Unavailable [phone] Miscellaneous, Not In File Unavailable Unava ilable Encounter Details Date Type Department Care Team (Late st Contact Info) Description 08/31/2023 Telephone [facility] Cardiology [address] [place] [address] Victor M Barnes MD [address] [id number] Social History Tobacco Use Types Packs/Day Years Used Date Smoking Tobacco: Former Smokeless Tobacco: Never Sex and Gender Information Value Date Recorded Sex Assigned at Not on file Legal Sex Male 12:29 AM 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 AGING INSPECTOR * Telephone Encounter - Kaycee Marroquin MA - 09/01/2023 1:44 PM CST Pt returned call, he states that the evan did just as it did before, no name and info but then he looked at it later and it states low battery to connect to restrooms or lounges maid. I explained to him that the website shows that the evan is communicating and he is scheduled for a remote download 09-08-23. So I explained that I will review the website tomorrow and make sure it's communication. Pt verbalizes understanding AGING INSPECTOR * Telephone Encounter - Kaycee Marroquin MA - 09/01/2023 1:39 PM CST Returned call to pt, had to LMOR requesting a return call AGING INSPECTOR * Telephone Encounter - Sonia Tomas RN - 09/01/2023 1:08 PM CST Kaycee please call patient about his remote evan. He may need an appointment in the office and have an Ji rep there to assist him with his remote. AGING INSPECTOR * Telephone Encounter - Keyana Moreno RN - 09/01/2023 12:11 PM CST See below please AGING INSPECTOR * Telephone Encounter - Dory Lester - 09/01/2023 12:06 PM PACKAGING INSPECTOR Pt is still having issues with the [employer] evan, pt is requesting a call back to discuss. [phone] AGING INSPECTOR * Telephone Encounter - Sonia Tomas RN - 08/31/2023 2:10 PM CST Noted, thank you. AGING INSPECTOR * Telephone Encounter - Kaycee Marroquin MA - 08/31/2023 2:01 PM CST Returned call to pt. Turns out pt is having difficulty with the [employer] evan. Has not communicated since 05-26-2023. I conferenced Ji into the phone call so that pt could speak with them directly. Will monitor AGING INSPECTOR * Telephone Encounter - Sonia Tomas RN - 08/31/2023 12:40 PM CST Kaycee will you call patient and assist with his monitor? Thank you. AGING INSPECTOR * Telephone Encounter - Keyana Moreno RN - 08/31/2023 12:14 PM CST See below AGING INSPECTOR * Telephone Encounter - Joyce Roblero - 08/31/2023 12:11 PM CST Pt states he is having issues with pace maker phone. Pt states it keeps showing it is locked up . Pt requesting a call back to further discuss. Contact:[phone] AGING INSPECTOR documented in this encounter Plan of Treatment Not on file documented as of this encounter Visit Diagnoses Not on filedocumented in this encounter Care Teams Nurse Special Relationship Specialty Start Date End Date Tao Jeffers MD [address] [place], [place] [address] PCP - General 12/18/11 Victor M Barnes MD [address] [place] [address] Consulting Physician Cardiology 05/16/21 Zane Lopez MD [address] [place] [address] Consulting Physician Electrophysiology 05/16/21 Miscellaneous, Not In File 05/23/21 documented as of this encounter
--- OUTSIDE RECORDS SUMMARY | 2024-07-30 20:38 | XMS_ITS | Encounter Summary ---
Author Organization [facility] Healthcare Address [address] [place] [address] Care Team Providers Care Philosophy And Religion Instructor Name Role Phone Tao Jeffers MD Primary Care Provider Victor M Barnes MD Unavailable Zane Lopez MD Unavailable [phone] Miscellaneous, Not In File Unavailable Unava ilable Reason for Visit * Reason Comments Follow-up 4 mo f/u ICD in situ Coronary Artery Disease Encounter Details Date Type Department Care Team (Latest Contact Info) Description 08/19/2023 10:30 AM PARKING LOT CHAUFFEUR Office Visit [facility] Cardiology [address] [place] [address] Victor M Barnes MD [address] [facility] [address] [place], [place] [id number] Coronary artery disease involving [place] coronary artery of [place] heart without angina pectoris (Primary Dx); Chronic [...] on file Legal Sex Male 12:29 AM PARKING LOT CHAUFFEUR Gender Identity Not on file Sexual Orientation Not on file documented as of this encounter Last Filed Vital Signs Vital Sign Reading Time Taken Comments Blood Pressure 136/74 08/19/2023 10:54 AM PARKING [place] CHAUFFEUR Pulse 70 08/19/2023 10:54 AM PARKING [place] CHAUFFEUR Temperature - - Respiratory Rate - - Oxygen Saturation 96% 08/19/2023 10:54 AM PARKING LOT CHAUFFEUR Inhaled Oxygen Concentration - - Weight 80.5 kg (177 lb 8 oz) 08/19/2023 10:54 AM PARKING LOT CHAUFFEUR Height 180.3 cm (5' 11 ) 08/19/2023 10:54 AM PARKING LOT CHAUFFEUR Body Mass Index 24.76 08/19/2023 10:54 AM PARKING LOT CHAUFFEUR documented in this encounter Progress Notes * Victor M Barnes MD - 08/19/2023 10:30 AM CST Images from the original note were not included. DATE OF VISIT: 08/19/2023 CHIEF COMPLAINT Chief Complaint Patient presents with Follow-up 4 mo f/u ICD in situ Coronary Artery Disease ASSESSMENT Diagnoses and all orders for this visit: Coronary artery disease involving [place] coronary artery of [place] heart without angina pectoris (Primary) Chronic HFrEF [...] but not robust. -EF 35% by Echo, [facility]. -EF 45% by Echo 09/2021, improved. - Continue Lasix 20 mg daily. Continue routine ICD interrogations as scheduled. Follow-up with electrophysiology as scheduled. -Did not tolerate 97/103mg BID due to dizziness, tolerating Entresto 49/51mg BID. 6. Routine biventricular ICD interrogations. Will refer to Dr. Cao for follow-up and managementof biventricular ICD as his previous patent searcher has left the area. Discussed his options [...] required hospitalization and appendectomy. He presented to [facility] on 01/01/2021 under the advice [...] loaded on amiodarone. 01/18/21 Hospital follow-up with [facility] - Lm Jimenez comes to the office [...] no concerns. No CP, palps, dizziness, bleeding. Lamxi meds. No new concerns. Keeping active no [...] and I told him to contact his application technical designer and get a appointment next week. 08/30/21 [...] 82 y.o. male. This patient received a [employer]ARA BiV ICD. They had a routine remote [...] device settings Ayla Colon RN 06/05/23 Oh[place] BI-V ICD imp on 05/23/21 for ICM/CHF/PAF, [...] medical record, and bloodwork/lipids. Сергей Barnes MD, [facility] This note is dictated and transcribed using [employer] Software. Validation Scientist variancesmay occur. Despite proofreading, typographical errors may occur. ING LOT CHAUFFEUR documented in this encounter Plan of Treatment Not on file documented as of this encounter Visit Diagnoses Diagnosis Coronary artery disease involving [place] coronary artery of [place] heart without angina pectoris- Primary Chronic HFrEF [...] anticoagulants documented in this encounter Care Teams Philosophy And Religion Instructor Relationship Specialty Start Date End Date Tao Jeffers MD [address] [place] [address] PCP - General 12/18/11 Victor M Barnes MD [address] [place] [address] Consulting Physician Cardiology 05/16/21 Zane Lopez MD [address] [place] [address] Consulting Physician Electrophysiology 05/16/21 Miscellaneous, Not In File 05/23/21 documented as of this encounter
--- OUTSIDE RECORDS SUMMARY | 2024-07-30 20:38 | XMS_ITS | Encounter Summary ---
Author Organization [facility] Address [address] [facility] [address] [place] [address] Care Team Providers Care Digital Marketing Associate Name Role Phone Tao Jeffers MD Primary Care Provider Victor M Barnes MD Unavailable [phone] Zane Lopez MD Unavailable Miscellaneous, Not In File Unavailable Unava ilable Encounter Details Date Type Department Care Team (Late st Contact Info) Description 04/21/2023 Telephone [facility] Cardiology [address] [address] Freddie Cao MD [address] [place] [address] [place] [address] Social History Tobacco Use Types Packs/Day Years Used Date Smoking Tobacco: Former Smokeless Tobacco: Never Sex and Gender Information Value Date Recorded Sex Assigned at Not on file Legal Sex Male 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
--- OUTSIDE RECORDS SUMMARY | 2024-07-30 20:38 | XMS_ITS | Encounter Summary ---
Author Organization [facility] Address [address] [facility] [facility] [address] [place] [address] Care Team Providers Care Rn Provider Relations Name Role Phone Tao Jeffers MD Primary Care Provider [phone] Victor M Barnes MD Unavailable Zane Lopez MD Unavailable Miscellaneous, Not In File Unavailable Unava ilable Encounter Details Date Type Department Care Team (Late st Contact Info) Description 07/15/2022 Telephone [facility] Cardiology [address] [place] [address] Victor M Barnes MD [address] [id number] Social History Tobacco Use Types Packs/Day Years Used Date Smoking Tobacco: Former Smokeless Tobacco: Never Sex and Gender Information Value Date Recorded Sex Assigned at Not on file Legal Sex Male 12:29 AM INSURANCE APPLICATION INVESTIGATOR Gender Identity Not on file Sexual Orientation [...] Yuko Burden RN - 07/15/2022 12:14 PM INSURANCE APPLICATION INVESTIGATOR Spoke with pt, samples ready for pickup and new rx sent to pharm. Pt will draft roller picker tomorrow. RANCE APPLICATION INVESTIGATOR * Telephone Encounter - Lena John - 07/15/2022 10:45 AM CST Pt requesting samples of Entresto and call from nurse Yuko. Contact: RANCE APPLICATION INVESTIGATOR documented in this encounter Plan of Treatment Not on file documented as of this encounter Visit Diagnoses Not on filedocumented in this encounter Discontinued Medications Medication Sig Discontinue Reason Start Date End Da te sacubitriL-valsartan (ENTRESTO) 49-51 mg tabletIndications:chroni c heart failure Take 1 tablet by mouth 2 (two) times a day Reorder 04/03/2022 07/15/2022 documented as of this encounter Care Teams Rn Provider Relations Relationship Specialty Start Date End Date Tao Jeffers MD [address] [place], [place] [address] PCP - General 12/18/11 Victor M Barnes MD [address] [place], [place] [address] Consulting Physician Cardiology 05/16/21 Zane Lopez MD [address] [place], [place] [address] Consulting Physician Electrophysiology 05/16/21 Miscellaneous, Not In File 05/23/21 documented as of this encounter
--- OUTSIDE RECORDS SUMMARY | 2024-07-30 20:38 | XMS_ITS | Encounter Summary ---
Author Organization [facility] Medical Group Address [address] [facility] [address] [place] [address] Care Team Providers Care Manager Assurance Name Role Phone Tao Jeffers MD Primary Care Provider [phone] Victor M Barnes MD Unavailable [phone] Zane Lopez MD Unavailable [phone] Miscellaneous, Not In File Unavailable Unava ilable Reason for Referral * Consultation (Routine) - Closed Specialty Diagnoses / Procedures Referred By Contac t Referred To Contact Cardiology Diagnoses Coronary artery disease involving tribe coronary artery of tribe heart without angina pectoris Chronic HFrEF (heart failure with reduced ejection fraction) (CMS/HCC) (HCC) Ischemic cardiomyopathy Paroxysmal atrial fibrillation (CMS/HCC) (HCC) S/P AV (atrioventricular) inocente ablation S/P coronary artery stent placement 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 Victor M Barnes MD [address] [place] [address] Phone: tel: fax: Harsh Cao MD [address] [address] Phone: tel: fax: Referral ID Status Reason Start Date Expiration Date V isits Requested Visits Authorized [id number] Closed Specialty Services Required 02/11/2023 03/12/2024 1 1 Question Answer Please select the performing region: [facility] [[id number]] Please select the performing department: [facility] [[id number]] To provider: HARSH CAO [[id number]] # of visits: 1 Comments BiV ICD, AV inocente ablation , PAF, CAD, ICM Reason for Visit * Reason Comments Follow-up 4 mo f/u Atrial Fibrillation Cardiomyopathy Hypertension Encounter Details Date Type Department Care Team (Late st Contact Info) Description 02/11/2023 9:15 AM CDT Office Visit [facility] Cardiology [address] [place] [id number] Victor M Barnes MD [address] [facility] [address] [place] [address] Coronary artery disease involving tribe coronary artery of tribe heart without angina pectoris (Primary Dx); Chronic [...] on file Legal Sex Male 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) ([facility]) - Ambulatory referral to Cardiac Electrophysiology; Future [...] but not robust. -EF 35% by Echo, [facility]. -EF 45% by Echo 09/2021, improved. - Continue Lasix 20 mg daily. Continue routine ICD interrogations as scheduled. Follow-up with electrophysiology as scheduled. -Did not tolerate 97/103mg BID due to dizziness, tolerating Entresto 49/51mg BID. 6. Routine biventricular ICD interrogations. Will refer to Dr. Cao for follow-up and managementof biventricular ICD as his previous manager air has left the area. Discussed his options [...] hospitalization and appendectomy. He presented to [facility] on 01/01/2021 under the advice of [...] loaded on amiodarone. 01/18/21 Hospital follow-up with [facility] - Lm Jimenez comes to the office [...] and I told him to contact his community service officer and get a appointment next week. 08/30/21 Interpretation Summary This patient received a Ohara BiV ICD. They had a routine [email or web address] remote transmission on 08/26/2021. Device implant indications: [...] Ohara BiV ICD. They had a routine [email or web address] remote transmission on 11/25/21. Device implant indications: [...] medical record, and bloodwork/lipids. Сергей Barnes MD, [facility] This note is dictated and transcribed using [employer]. Umbrella Tipper variancesmay occur. Despite proofreading, typographical errors may occur. documented in this encounter Plan of Treatment Scheduled Referrals Name Type Priority Associated Diagnoses Order Schedule Ambulatory referral to Cardiac Electrophysiology Outpatient Referral Routine Coronary artery disease involving tribe coronary artery of tribe heart without angina pectoris Chronic HFrEF (heart failure with reduced ejection fraction) (CMS/HCC) (HCC) Ischemic cardiomyopathy Paroxysmal atrial fibrillation (CMS/HCC) ([facility]) S/P AV (atrioventricular) inocente ablation S/P coronary artery stent placement Biventricular implantable cardioverter-defibr illator (ICD) in situ Expected: 02/25/2023 (Approximate), Expires: 02/12/2024 documented as of this encounter Visit Diagnoses Diagnosis Coronary artery disease involving tribe coronary artery of tribe heart without angina pectoris- Primary Chronic HFrEF [...] situ documented in this encounter Care Teams Manager Assurance Relationship Specialty Start Date End Date Tao Jeffers MD [address] [place] [address] PCP - General 12/18/11 Victor M Barnes MD [address] [place] [address] Consulting Physician Cardiology 05/16/21 Zane Lopez MD [address] [place], [place] [id number] Consulting Physician Electrophysiology 05/16/21 Miscellaneous, Not In File 05/23/21 documented as of this encounter
--- OUTSIDE RECORDS SUMMARY | 2024-07-30 20:38 | XMS_ITS | Encounter Summary ---
Author Organization [facility] Address [address] [facility] [address] [place] [address] Care Team Providers Care Filter Tender Jelly Name Role Phone Tao Jeffers MD Primary Care Provider [phone] Victor M Barnes MD Unavailable [phone] Zane Lopez MD Unavailable [phone] Miscellaneous, Not In File Unavailable Unava ilable Reason for Referral * Cardiology (Routine) - Pending Review Specialty Diagnoses / Procedures Referred By Contac t Referred To Contact Cardiology Diagnoses Paroxysmal atrial fibrillation (CMS/HCC) (HCC) Ischemic cardiomyopathy Procedures DEVICE CHECK - REMOTE Victor M Barnes MD [address] [place] [address] Phone: tel: fax: [facility] Referral ID Status Reason Start Date Expiration Date V isits Requested Visits Authorized [id number] Pending Review 02/13/2023 08/16/2024 1 1 * Cardiology (Routine) - Pending Review Specialty Diagnoses / Procedures Referred By Contac t Referred To Contact Cardiology Diagnoses Paroxysmal atrial fibrillation (CMS/HCC) (HCC) Ischemic cardiomyopathy Procedures DEVICE CHECK - REMOTE Victor M Barnes MD [address] [place] [address] Phone: tel: fax: [facility] Referral ID Status Reason Start Date Expiration Date V isits Requested Visits Authorized [id number] Pending Review 02/13/2023 08/16/2024 1 1 * Cardiology (Routine) - Pending Review Specialty Diagnoses / Procedures Referred By Contac t Referred To Contact Diagnoses Paroxysmal atrial fibrillation (CMS/HCC) (HCC) Ischemic cardiomyopathy Procedures DEVICE CHECK - REMOTE Victor M Barnes MD [address] [place] [address] Phone: tel: fax: [facility] Referral ID Status Reason Start Date Expiration Date V isits Requested Visits Authorized [id number] Pending Review 02/13/2023 08/16/2024 1 1 Encounter Details Date Type Department Care Team (Late st Contact Info) Description 02/13/2023 Orders Only [facility] Cardiology [address] [place] [phone] Victor M Barnes MD [address] [place] [address] [address] [place] [address] Paroxysmal atrial fibrillation (CMS/HCC) (HCC) (Primary Dx); Ischemic cardiomyopathy Social History Tobacco Use Types Packs/Day Years Used Date Smoking Tobacco: Former Smokeless Tobacco: Never Sex and Gender Information Value Date Recorded Sex Assigned at Not on file Legal Sex Male 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 Cameron (Card-Follows). [place]anda-EP - [place] Routine VVIR ICD Remote. Transmission attached. Battery status 67%, 5.2-5.5 years remaining battery life to JIAN. Stable Charge time and Shock impedance. Stable lead impedances, pacing, and sensing threshold. Presenting rhythm: BP Bi-V P-98 %. (0) AT/AF episodes noted. (0) Ventricular tachy arrhythmias detected. Medication: Eliquis, ASA, Toprol XL, Entresto Follow up: office device pacemaker/ICD 06/22/24 [place] remote 6 months Johnie Mensah RN Victor [...] situ documented in this encounter Care Teams Filter Tender Jelly Relationship Specialty Start Date End Date Tao Jeffers MD [address] [place], [place] [address] PCP - General 12/18/11 Victor M Barnes MD [address] [place], [place] [address] Consulting Physician Cardiology 05/16/21 Zane Lopez MD [address] [place], [place] [address] Consulting Physician Electrophysiology 05/16/21 Miscellaneous, Not In File 05/23/21 documented as of this encounter
--- OUTSIDE RECORDS SUMMARY | 2024-07-30 20:38 | XMS_ITS | Encounter Summary ---
Author Organization [facility] Address [address] [facility] [address] [place] [address] Care Team Providers Care Coil Winding Machines Set Up Mechanic Name Role Phone Tao Jeffers MD Primary Care Provider [phone] Victor M Barnes MD Unavailable [phone] Zane Lopez MD Unavailable [phone] Miscellaneous, Not In File Unavailable Unava ilable Reason for Visit * Reason Onset Date Comments Lab Results 12/17/2022 Encounter Details Date Type Department Care Team (Late st Contact Info) Description 12/17/2022 Telephone [facility] Cardiology [address] [place] [address] Ayla Ballesteros MA Lab Results Social History Tobacco Use Types Packs/Day Years Used Date Smoking Tobacco: Former Smokeless Tobacco: Never Sex and Gender Information Value Date Recorded Sex Assigned at Not on file Legal Sex Male 12:29 AM ASP NET C DEVELOPER Gender Identity Not on file Sexual Orientation Not on file documented as of this encounter Miscellaneous Notes * Telephone Encounter - Ayla Ballesteros MA - 12/17/2022 9:47 AM CDT Labs overall look stable. ----- Message ----- From: Ayla Ballesteros MA Sent: 12/12/2022 8:24 PM CDT To: Victor M Barnes MD Subject: Edit The scan below was edited by Ayla Ballesteros MA [[id number]] on 12/12/2022 at 8:24 PM; it is attached to the following: BMP - BASIC METABOLIC PANEL (7) on 12/09/19 12/17/22- Pt notified documented in this encounter Plan of Treatment Not on file documented as of this encounter Visit Diagnoses Not on filedocumented in this encounter Care Teams Coil Winding Machines Set Up Mechanic Relationship Specialty Start Date End Date Tao Jeffers MD [address] [place], [place] [address] PCP - General 12/18/11 Victor M Barnes MD [address] [place] [address] Consulting Physician Cardiology 05/16/21 Zane Lopez MD [address] [place] [address] Consulting Physician Electrophysiology 05/16/21 Miscellaneous, Not In File 05/23/21 documented as of this encounter
--- OUTSIDE RECORDS SUMMARY | 2024-07-30 20:38 | XMS_ITS | Encounter Summary ---
Author Organization [facility] Address [address] [facility] [address] [place] [address] Care Team Providers Care Laborer Wharf Name Role Phone Tao Jeffers MD Primary Care Provider [phone] Victor M Barnes MD Unavailable Zane Lopez MD Unavailable Miscellaneous, Not In File Unavailable Unava ilable Encounter Details Date Type Department Care Team (Late st Contact Info) Description 04/09/2022 Telephone [facility] Cardiology [address] [place] [address] Victor M Barnes MD [address] [id number] Social History Tobacco Use Types Packs/Day Years Used Date Smoking Tobacco: Former Smokeless Tobacco: Never Sex and Gender Information Value Date Recorded Sex Assigned at Not on file Legal Sex Male 12:29 AM MILK AND CREAM GRADER Gender Identity Not on file Sexual [...] documented as of this encounter Care Teams Laborer Wharf Relationship Specialty Start Date End Date Tao Jeffers MD [address] [place], [place] [id number] PCP - General 12/18/11 Victor M Barnes MD [address] [place] [id number] Consulting Physician Cardiology 05/16/21 Zane Lopez MD [address] [place] [address] Consulting Physician Electrophysiology 05/16/21 Miscellaneous, Not In File 05/23/21 documented as of this encounter
--- OUTSIDE RECORDS SUMMARY | 2024-07-30 20:38 | XMS_ITS | Encounter Summary ---
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 Procedures DEVICE CHECK - IN OFFICE Zane Lopez MD [address] [address] Phone: tel: fax: [facility] Referral ID Status Reason Start Date Expiration Date Visits Re quested Visits Authorized [id number] Closed 06/27/2022 07/27/2023 1 1 Encounter Details Date Type Department Care Team (Latest Contact Info) Description 06/03/2023 2:30 PM DETENTION SERGEANT Ancillary Procedure [facility] Cardiology [address] [place] [address] S/P AV (atrioventricular) inocente ablation [...] on file Legal Sex Male 12:29 AM DETENTION SERGEANT Gender Identity Not on file Sexual Orientation Not on file documented as of this encounter Plan of Treatment Not on file documented as of this encounter Procedures Procedure Name Priority Date/Time Associated Diagnosis Comments DEVICE CHECK - IN OFFICE Routine 06/03/2023 1:53 PM DETENTION SERGEANT Biventricular implantable cardioverter-defibri llator (ICD) in situ documented in this encounter Results * DEVICE CHECK - IN OFFICE (06/03/2023 1:53 PM DETENTION SERGEANT) Anatomical Region Laterality Modality Other Narrative 06/05/2023 8:14 AM DETENTION SERGEANT Ji [place] BI-V ICD imp on 05/23/21 for [...] See scanned report. Office device f/u 06/22/2024. Valentine remote f/u 09/08/2023. Sonia Tomas, RN us [...] (HCC) documented in this encounter Care Teams Horticulture Professor Relationship Specialty Start Date End Date Tao Jeffers MD [address] [place] [address] PCP - General 12/18/11 Victor M Barnes MD [address] [place], [place] [phone] Consulting Physician Cardiology 05/16/21 Zane Lopez MD [address] [place], [place] [id number] Consulting Physician Electrophysiology 05/16/21 Miscellaneous, Not In File 05/23/21 documented as of this encounter
--- OUTSIDE RECORDS SUMMARY | 2024-07-30 20:38 | XMS_ITS | Encounter Summary ---
Author Organization [facility] Address [address] [facility] [address] [place] [address] Care Team Providers Care Meat Stocker Name Role Phone Tao Jeffers MD Primary Care Provider [phone] Victor M Barnes MD Unavailable Zane Lopez MD Unavailable [phone] Miscellaneous, Not In File Unavailable Unava ilable Encounter Details Date Type Department Care Team (Late st Contact Info) Description 12/08/2022 Telephone [facility] Cardiology [address] [place] [address] Victor M Barnes MD [address] [id number] Social History Tobacco Use Types Packs/Day Years Used Date Smoking Tobacco: Former Smokeless Tobacco: Never Sex and Gender Information Value Date Recorded Sex Assigned at Not on file 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SKILLED Gender Identity Not on file Sexual Orientation [...] he did check it today and it dxz662/83. Pt said he can start checking it [...] Requestingcall back to discuss with Yuko. Contact [phone] documented in this encounter Plan of Treatment Not on file documented as of this encounter Visit Diagnoses Not on filedocumented in this encounter Discontinued Medications Medication Sig Discontinue Reason Start Date End Da te sacubitriL-valsartan (ENTRESTO) 97-103 mg tabletIndications:chroni c heart failure Take 1 tablet by mouth 2 (two) times a day 10/06/2022 12/09/2022 documented as of this encounter Care Teams Meat Stocker Relationship Specialty Start Date End Date Tao Jeffers MD [address] [place], [place] [address] PCP - General 12/18/11 Victor M Barnes MD [address] [place], [place] [address] Consulting Physician Cardiology 05/16/21 Zane Lopez MD [address] [place], [place] [phone] Consulting Physician Electrophysiology 05/16/21 Miscellaneous, Not In File 05/23/21 documented as of this encounter
--- OUTSIDE RECORDS SUMMARY | 2024-07-30 20:38 | XMS_ITS | Encounter Summary ---
Author Organization [facility] Address [address] [facility] [address] [place] [address] Care Team Providers Care Risk Adjustment Specialist Name Role Phone Tao Jeffers MD Primary Care Provider [phone] Victor M Barnes MD Unavailable Zane Lopez MD Unavailable [phone] Miscellaneous, Not In File Unavailable Unava ilable Encounter Details Date Type Department Care Team (Late st Contact Info) Description 04/03/2022 Telephone [facility] Cardiology [address] [place] [address] Victor M Barnes MD [address] [id number] Social History Tobacco Use Types Packs/Day Years Used Date Smoking Tobacco: Former Smokeless Tobacco: Never Sex and Gender Information Value Date Recorded Sex Assigned at Not on file Legal Sex Male 12:29 AM 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 Gender Identity Not on file Sexual Orientation [...] nurse Huntley in regard to below.Thank you contact:[phone] * Addendum Note - Reyes Burden RN [...] requesting a call from ANTHONY Huntley.Thank you Contact:[phone] * Telephone Encounter - Reyes Burden RN [...] Requesting a call from nurse Huntley.Thank you Contact:[phone] documented in this encounter Plan of Treatment [...] documented as of this encounter Care Teams Risk Adjustment Specialist Relationship Specialty Start Date End Date Tao Jeffers MD [address] [place], [place] [phone] PCP - General 12/18/11 Victor M Barnes MD [address] [place], [place] [address] Consulting Physician Cardiology 05/16/21 Zane Lopez MD [address] [place], [place] [phone] Consulting Physician Electrophysiology 05/16/21 Miscellaneous, Not In File 05/23/21 documented as of this encounter
--- OUTSIDE RECORDS SUMMARY | 2024-07-30 20:38 | XMS_ITS | Encounter Summary ---
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 Procedures DEVICE CHECK - IN OFFICE Zane Lopez MD [address] [address] Phone: tel: fax: [facility] Referral ID Status Reason Start Date Expiration Date Visits Re quested Visits Authorized [id number] Closed 06/27/2022 07/27/2023 1 1 RAL OFFICE FRAME WIRER Reason for Visit * Reason Comments Atrial Fibrillation Encounter Details Date Type Department Care Team (Latest Contact Info) Description 07/02/2022 4:00 PM CENTRAL OFFICE FRAME WIRER Office Visit [facility] [address] [facility] [address] [place] [phone] Zane Lopez MD [address] [facility] [address] [address] Biventricular implantable cardioverter-defibrill ator (ICD) in situ (Primary Dx) Social History Tobacco Use Types Packs/Day Years Used Date Smoking Tobacco: Former Smokeless Tobacco: Never Tobacco Cessation:Counseling Given: Not Answered Sex and Gender Information Value Date Recorded Sex Assigned at Not on file Legal Sex Male 12:29 AM CENTRAL OFFICE FRAME WIRER Gender Identity Not on file Sexual Orientation Not on file documented as of this encounter Last Filed Vital Signs Vital Sign Reading Time Taken Comments Blood Pressure 114/55 07/02/2022 3:31 PM CENTRAL OFFICE FRAME WIRER Pulse 70 07/02/2022 3:31 PM CENTRAL OFFICE FRAME WIRER Temperature - - Respiratory Rate 18 07/02/2022 3:31 PM CENTRAL OFFICE FRAME WIRER Oxygen Saturation - - Inhaled Oxygen Concentration - - Weight 84.7 kg (186 lb 11.2 oz) 07/02/2022 3:31 PM CENTRAL OFFICE FRAME WIRER Height 180.3 cm (5' 11 ) 07/02/2022 3:31 PM CENTRAL OFFICE FRAME WIRER Body Mass Index 26.04 07/02/2022 3:31 PM CENTRAL OFFICE FRAME WIRER documented in this encounter Patient Instructions * Patient Instructions* Sumaya Smith MA - 07/02/2022 4:00 PM CENTRAL OFFICE FRAME WIRER Follow up with Dr. Barnes . NO Appt made. 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 documented in this encounter Results * DEVICE CHECK - IN OFFICE (06/03/2023 1:53 PM CENTRAL OFFICE FRAME WIRER) Anatomical Region Laterality Modality Other Narrative 06/05/2023 8:14 AM CENTRAL OFFICE FRAME WIRER [place] BI-V ICD imp on 05/23/21 for ICM/CHF/PAF, [...] (HCC) documented in this encounter Care Teams Doughnut Dough Mixer Relationship Specialty Start Date End Date Tao Jeffers MD [address] [place], [place] [address] PCP - General 12/18/11 Victor M Barnes MD [address] [place], [place] [address] Consulting Physician Cardiology 05/16/21 Zane Lopez MD [address] [place], [place] [address] Consulting Physician Electrophysiology 05/16/21 Miscellaneous, Not In File 05/23/21 documented as of this encounter
--- OUTSIDE RECORDS SUMMARY | 2024-07-30 20:38 | XMS_ITS | Encounter Summary ---
Author Organization [facility] Address [address] [place] [address] Care Team Providers Care Manager Knowledge Name Role Phone Tao Jeffers MD Primary Care Provider [phone] Victor M Barnes MD Unavailable [phone] Zane Lopez MD Unavailable [phone] Miscellaneous, Not In File Unavailable Unava ilable Reason for Referral * Cardiology (Routine) - Closed Specialty Diagnoses / 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 Chronic HFrEF (heart failure with reduced ejection fraction) (CMS/HCC) (HCC) Procedures DEVICE CHECK - IN OFFICE Victor M Barnes MD [address] [place] [address] Phone: tel: fax: [facility] Referral ID Status Reason Start Date Expiration Date Visits Re quested Visits Authorized [id number] Closed 06/04/2023 07/03/2024 1 1 OMER MANAGEMENT SPECIALIST * Cardiology (Routine) - Closed Specialty Diagnoses / Procedures Referred By Contac t Referred To Contact Cardiology Diagnoses Ischemic cardiomyopathy Permanent atrial fibrillation (CMS/HCC) (HCC) S/P AV (atrioventricular) inocente ablation 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 Chronic HFrEF (heart failure with reduced ejection fraction) (CMS/HCC) (HCC) Procedures DEVICE CHECK - IN OFFICE Victor M Barnes MD [address] [place] [address] Phone: tel: fax: [facility] Referral ID Status Reason Start Date Expiration Date Visits Re quested Visits Authorized [id number] Closed 06/04/2023 07/03/2024 1 1 OMER MANAGEMENT SPECIALIST Encounter Details Date Type Department Care Team (Late st Contact Info) Description 06/04/2023 Orders Only [facility] Cardiology [address] [place] [phone] Victor M Barnes MD [address] [place] [address] [address] [place] [address] Ischemic cardiomyopathy (Primary Dx); Permanent [...] file Legal Sex Male 12:29 AM CUSTOMER MANAGEMENT SPECIALIST Gender Identity Not on file Sexual [...] (HCC) documented in this encounter Care Teams Manager Knowledge Relationship Specialty Start Date End Date Tao Jeffers MD [address] [place] [address] PCP - General 12/18/11 Victor M Barnes MD [address] [place] [address] Consulting Physician Cardiology 05/16/21 Zane Lopez MD [address] [place] [address] Consulting Physician Electrophysiology 05/16/21 Miscellaneous, Not In File 05/23/21 documented as of this encounter
--- OUTSIDE RECORDS SUMMARY | 2024-07-30 20:38 | XMS_ITS | Encounter Summary ---
Author Organization [facility] Address [address] [place] [address] Care Team Providers Care Program Director/Traffic Director Name Role Phone Tao Jeffers MD Primary Care Provider [phone] Victor M Barnes MD Unavailable [phone] Zane Lopez MD Unavailable [phone] Miscellaneous, Not In File Unavailable Unava ilable Reason for Referral * Cardiology (Routine) - Closed Specialty Diagnoses / Procedures Referred By Contac t Referred To Contact Diagnoses Ischemic cardiomyopathy Procedures DEVICE CHECK - REMOTE Ceasar Rosas MD [address] [address] Phone: tel: fax: [facility] Referral ID Status Reason Start Date Expiration Date Visits Re quested Visits Authorized [id number] Closed 09/03/2022 03/03/2024 1 1 FORM PREPARER * Cardiology (Routine) - Closed Specialty Diagnoses / Procedures Referred By Contac t Referred To Contact Diagnoses Ischemic cardiomyopathy Procedures DEVICE CHECK - REMOTE Ceasar Rosas MD [address] [address] Phone: tel: fax: [facility] Referral ID Status Reason Start Date Expiration Date Visits Re quested Visits Authorized [id number] Closed 09/03/2022 03/03/2024 1 1 FORM PREPARER * Cardiology (Routine) - Closed Specialty Diagnoses / Procedures Referred By Contac t Referred To Contact Diagnoses Ischemic cardiomyopathy Procedures DEVICE CHECK - REMOTE Ceasar Rosas MD [address] [address] Phone: tel: fax: [facility] Referral ID Status Reason Start Date Expiration Date Visits Re quested Visits Authorized [id number] Closed 09/03/2022 03/03/2024 1 1 FORM PREPARER * Cardiology (Routine) - Closed Specialty Diagnoses / Procedures Referred By Contac t Referred To Contact Diagnoses Ischemic cardiomyopathy Procedures DEVICE CHECK - REMOTE Ceasar Rosas MD [address] [place] [address] Phone: tel: fax: [facility] Referral ID Status Reason Start Date Expiration Date Visits Re quested Visits Authorized [id number] Closed 09/03/2022 03/03/2024 1 1 FORM PREPARER * Cardiology (Routine) - Closed Specialty Diagnoses / Procedures Referred By Contac t Referred To Contact Diagnoses Ischemic cardiomyopathy Procedures DEVICE CHECK - REMOTE Ceasar Rosas MD [address] [address] Phone: tel: fax: [facility] Referral ID Status Reason Start Date Expiration Date Visits Re quested Visits Authorized [id number] Closed 09/03/2022 03/03/2024 1 1 FORM PREPARER Encounter Details Date Type Department Care Team (Late st Contact Info) Description 09/03/2022 Orders Only [facility] [address] [address] Ceasar Rosas MD [address] [place] [address] Ischemic cardiomyopathy (Primary Dx) Social History Tobacco Use Types Packs/Day Years Used Date Smoking Tobacco: Former Smokeless Tobacco: Never Sex and Gender Information Value Date Recorded Sex Assigned at Not on file Legal Sex Male 12:29 AM TAX FORM PREPARER Gender Identity Not on file Sexual Orientation Not on file documented as of this encounter Plan of Treatment Not on file documented as of this encounter Results * DEVICE CHECK - REMOTE (12/09/2023 10:24 AM CDT) Anatomical Region Laterality Modality Other Narrative 02/19/2024 2:23 PM CDT [facility] [place] BI-V ICD imp on 05/23/21 for ICM/CHF/PAF, [...] DEVICE CHECK - REMOTE (09/09/2023 9:39 AM TAX FORM PREPARER) Anatomical Region Laterality Modality Other Narrative 11/20/2023 8:10 AM CDT [facility] [place] BI-V ICD imp on 05/23/21 for ICM/CHF/PAF, s/p AVN ablation on 06/10/21. ??[place] (Card-Follows) - [place]. Routine VVI ICD Remote. Transmission attached. Battery status-Ok, 5.5 years remaining to JIAN. Stable Charge time and Shock impedance. Stable lead impedances, pacing and sensing threshold. Presenting: BIV Paced Bi-V P->98 %. (No) Ventricular tachy arrhythmias detected. ?? Medication: Eliquis, Toprol XL, Entresto. Follow up: [place] remote f/u 12/08/2023. Sonia Tomas, ANTHONY Ceasar Rosas MD [facility] PRO CEDURES Final Result * DEVICE CHECK - REMOTE (03/10/2023 4:32 PM CDT) Anatomical Region Laterality Modality Other Narrative 04/17/2023 2:51 PM CDT [facility] [place] BI-V ICD imp on 05/23/21 for ICM/CHF/PAF, s/p AVN ablation on 06/10/21. ??[place] (Card-Follows) - [place]. Routine VVI ICD Remote. Transmission attached. Battery [...] DEVICE CHECK - REMOTE (09/08/2022 10:46 AM TAX FORM PREPARER) Anatomical Region Laterality Modality Other Narrative 09/10/2022 3:25 PM TAX FORM PREPARER Table formatting from the original result was [...] [Z95.810] documented in this encounter Care Teams Program Director/Traffic Director Relationship Specialty Start Date End Date Tao Jeffers MD [address] [place], [place] [address] PCP - General 12/18/11 Victor M Barnes MD [address] [place], [place] [id number] Consulting Physician Cardiology 05/16/21 Zane Lopez MD [address] [place], [place] [address] Consulting Physician Electrophysiology 05/16/21 Miscellaneous, Not In File 05/23/21 documented as of this encounter
--- OUTSIDE RECORDS SUMMARY | 2024-07-30 20:38 | XMS_ITS | Encounter Summary ---
Author Organization [facility] Address [address] [place] [address] Care Team Providers Care University Dean Name Role Phone Tao Jeffers MD Primary Care Provider [phone] Victor M Barnes MD Unavailable [phone] Zane Lopez MD Unavailable [phone] Miscellaneous, Not In File Unavailable Unava ilable Reason for Visit * Cardiology (Routine) - Closed Specialty Diagnoses / Procedures Referred By Contac t Referred To Contact Diagnoses Ischemic cardiomyopathy Procedures DEVICE CHECK - REMOTE Zane Lopez MD [address] [place] [address] Phone: tel: fax: [facility] Referral ID Status Reason Start Date Expiration Date Visits Re quested Visits Authorized [id number] Closed 05/24/2021 06/23/2022 1 1 Encounter Details Date Type Department Care Team (Latest Contact Info) Description 06/09/2022 12:00 PM MVA STILL OPERATOR Ancillary Procedure [facility] [address] [facility] [address], [place] [id number] Ischemic cardiomyopathy; Biventricular implantable cardioverter-defibr illator (ICD) in situ Social History Tobacco Use Types Packs/Day Years Used Date Smoking Tobacco: Former Smokeless Tobacco: Never Sex and Gender Information Value Date Recorded Sex Assigned at Not on file Legal Sex Male 12:29 AM MVA STILL OPERATOR Gender Identity Not on file Sexual Orientation Not on file documented as of this encounter Plan of Treatment Not on file documented as of this encounter Procedures Procedure Name Priority Date/Time Associated Diagnosis Comments DEVICE CHECK - REMOTE Routine 06/09/2022 11:12 AM MVA STILL OPERATOR Ischemic cardiomyopathy documented in this encounter Results * DEVICE CHECK - REMOTE (06/09/2022 11:12 AM MVA STILL OPERATOR) Anatomical Region Laterality Modality Other Narrative 06/12/2022 12:25 PM MVA STILL OPERATOR Table formatting from the original result was [...] situ documented in this encounter Care Teams University Dean Relationship Specialty Start Date End Date Tao Jeffers MD [address] [place] [address] PCP - General 12/18/11 Victor M Barnes MD [address] [place] [address] Consulting Physician Cardiology 05/16/21 Zane Lopez MD [address] [place] [address] Consulting Physician Electrophysiology 05/16/21 Miscellaneous, Not In File 05/23/21 documented as of this encounter
--- OUTSIDE RECORDS SUMMARY | 2024-07-30 20:38 | XMS_ITS | Encounter Summary ---
Author Organization [facility] Address [address] [place] [address] Care Team Providers Care Slurry Control Operator Helper Name Role Phone Tao Jeffers MD Primary Care Provider Victor M Barnes MD Unavailable [phone] Zane Lopez MD Unavailable Miscellaneous, Not In File Unavailable Unava ilable Encounter Details Date Type Department Care Team (Late st Contact Info) Description 05/15/2022 Telephone [facility] Cardiology [address] [place] [address] Victor M Barnes MD [address] [id number] Social History Tobacco Use Types Packs/Day Years Used Date Smoking Tobacco: Former Smokeless Tobacco: Never Sex and Gender Information Value Date Recorded Sex Assigned at Not on file Legal Sex Male 12:29 AM CARPENTER RAILCAR Gender Identity Not on file Sexual Orientation [...] [facility] * Telephone Encounter - Lena John - [...] documented as of this encounter Care Teams Slurry Control Operator Helper Relationship Specialty Start Date End Date Tao Jeffers MD [address] [place], [place] [address] PCP - General 12/18/11 Victor M Barnes MD [address] [place] [address] Consulting Physician Cardiology 05/16/21 Zane Lopez MD [address] [place], [place] [address] Consulting Physician Electrophysiology 05/16/21 Miscellaneous, Not In File 05/23/21 documented as of this encounter
--- OUTSIDE RECORDS SUMMARY | 2024-07-30 20:38 | XMS_ITS | Encounter Summary ---
Author Organization [facility] Address [address] [place] [address] Care Team Providers Care Lumber Chain Offbearer Name Role Phone Tao Jeffers MD Primary Care Provider Victor M Barnes MD Unavailable Zane Lopez MD Unavailable Miscellaneous, Not In File Unavailable Unava ilable Encounter Details Date Type Department Care Team (Late st Contact Info) Description 04/30/2022 Telephone [facility] Cardiology [address] [place] [address] Victor M Barnes MD [address] [id number] Social History Tobacco Use Types Packs/Day Years Used Date Smoking Tobacco: Former Smokeless Tobacco: Never Sex and Gender Information Value Date Recorded Sex Assigned at Not on file Legal Sex Male 12:29 AM SHAREPOINT APPLICATION DEVELOPER Gender Identity Not on file Sexual [...] requesting a call from nurse Huntley.Thank you Contact:[phone] documented in this encounter Plan of Treatment Not on file documented as of this encounter Visit Diagnoses Not on filedocumented in this encounter Care Teams Lumber Chain Offbearer Relationship Specialty Start Date End Date Tao Jeffers MD [address] [place] [address] PCP - General 12/18/11 Victor M Barnes MD [address] [place] [address] Consulting Physician Cardiology 05/16/21 Zane Lopez MD [address] [place] [address] Consulting Physician Electrophysiology 05/16/21 Miscellaneous, Not In File 05/23/21 documented as of this encounter
--- OUTSIDE RECORDS SUMMARY | 2024-07-30 20:38 | XMS_ITS | Encounter Summary ---
Author Organization [facility] Address [address] [place] [address] Care Team Providers Care Pulp Mixer Name Role Phone Tao Jeffers MD Primary Care Provider [phone] Victor M Barnes MD Unavailable [phone] Zane Lopez MD Unavailable [phone] Miscellaneous, Not In File Unavailable Unava ilable Encounter Details Date Type Department Care Team (Late st Contact Info) Description 04/21/2023 9:55 AM CDT Lab [address] [address] Chronic HFrEF (heart failure with reduced ejection fraction) (CMS/HCC) ([facility]) Social History Tobacco Use Types Packs/Day Years Used Date Smoking Tobacco: Former Smokeless Tobacco: Never Sex and Gender Information Value Date Recorded Sex Assigned at Not on file Legal Sex Male 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 Testing performed by: [facility], [place] [address] Blood 04/21/2023 10:0 1 AM CDT 04/21/2023 10:05 AM CDT Freddie Cao MD LAB BLOOD ORDERABLES F inal Result JADIEL [address] [address] [place] [address] * Basic metabolic panel (04/21/2023 10:01 AM CDT) Sodium 139 135 - 145 mmol/L JADIEL CALHOUN Comment:Testing performed by : [facility], [place] [address] Potassium, pl 4.7 3.3 - 4.9 mmol/L CERNER Comment:Testing performed by : [facility], [facility] [place] [address] Chloride 102 97 - 110 mmol/L CERNER Comment:Testing performed by : [facility] [place] [address] CO2 28 22 - 32 mmol/L CERNER CH Comment:Testing performed by : [facility] [place] [address] Anion gap 9 2 - 15 mmol/L CERNER Comment:Testing performed by : [facility], [facility] [place] [address] BUN 17 6 - 25 mg/dL CERNER Comment:Testing performed by : [facility] [place] [address] Creatinine 1.02 0.80 - 1.30 mg/dL CERNER Comment:Testing performed by : [facility] [place] [address] Glucose 102 70 - 199 mg/dL CERNER [...] was last revised 2022. Testing performed by: [facility] [place] [address] Calcium 9.5 8.5 - 10.3 mg/dL CERNER Comment:Testing performed by : [facility], [facility] [place] [address] Blood 04/21/2023 10:0 1 AM CDT 04/21/2023 10:05 AM CDT Freddie Cao MD LAB BLOOD ORDERABLES F inal Result [facility] [address] [address] Department [place] [address] documented in this encounter Visit Diagnoses Diagnosis Chronic HFrEF (heart failure with reduced ejection fraction) (CMS/HCC) (HCC) documented in this encounter Care Teams Pulp Mixer Relationship Specialty Start Date End Date Tao Jeffers MD [address] [place] [address] PCP - General 12/18/11 Victor M Barnes MD [address] [place], [place] [address] Consulting Physician Cardiology 05/16/21 Zane Lopez MD [address] [place] [address] Consulting Physician Electrophysiology 05/16/21 Miscellaneous, Not In File 05/23/21 documented as of this encounter
--- OUTSIDE RECORDS SUMMARY | 2024-07-30 20:38 | XMS_ITS | Encounter Summary ---
Author Organization [facility] Address [address] [place] [address] Care Team Providers Care Machine Straw Hat Presser Name Role Phone Tao Jeffers MD Primary Care Provider [phone] Victor M Barnes MD Unavailable Zane Lopez MD Unavailable Miscellaneous, Not In File Unavailable Unava ilable Encounter Details Date Type Department Care Team (Late st Contact Info) Description 06/09/2022 Orders Only [facility] [address] [facility] [address] [place] [address] Zane Lopez MD [address] 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 Gender Identity Not on file Sexual Orientation Not on file documented as of this encounter Plan of Treatment Not on file documented as of this encounter Visit Diagnoses Diagnosis Ischemic cardiomyopathy- Primary Other specified forms of chronic ischemic heart disease documented in this encounter Care Teams Machine Straw Hat Presser Relationship Specialty Start Date End Date Tao Jeffers MD [address] [place] [address] PCP - General 12/18/11 Victor M Barnes MD [address] [place] [address] Consulting Physician Cardiology 05/16/21 Zane Lopez MD [address] [place], [place] [address] Consulting Physician Electrophysiology 05/16/21 Miscellaneous, Not In File 05/23/21 documented as of this encounter
--- OUTSIDE RECORDS SUMMARY | 2024-07-30 20:38 | XMS_ITS | Encounter Summary ---
Author Organization [facility] Medical Group Address [address] [place] [address] Care Team Providers Care Soap Maker Name Role Phone Tao Jeffers MD Primary Care Provider [phone] Victor M Barnes MD Unavailable [phone] Zane Lopez MD Unavailable [phone] Miscellaneous, Not In File Unavailable Unava ilable Reason for Visit * Reason Comments Follow-up 2 mo Encounter Details Date Type Department Care Team (Late st Contact Info) Description 06/03/2022 8:30 AM ENGRAVER LETTERING Office Visit [facility] Medical [facility] Cardiology [address] [facility] [[email or web address] [address] [place] [address] Yolie Chao, MARJORIE [address] [place] [address] Coronary artery disease involving [place] coronary artery of [place] heart without angina pectoris (Primary Dx); Chronic [...] on file Legal Sex Male 12:29 AM ENGRAVER LETTERING Gender Identity Not on file Sexual Orientation Not on file documented as of this encounter Last Filed Vital Signs Vital Sign Reading Time Taken Comments Blood Pressure 134/68 06/03/2022 8:21 AM ENGRAVER LETTERING Pulse 71 06/03/2022 8:21 AM ENGRAVER LETTERING Temperature - - Respiratory Rate - - Oxygen Saturation 97% 06/03/2022 8:21 AM ENGRAVER LETTERING Inhaled Oxygen Concentration - - Weight 83 kg (183 lb) 06/03/2022 8:21 AM ENGRAVER LETTERING Height 180.3 cm (5' 11 ) 06/03/2022 8:21 AM ENGRAVER LETTERING Body Mass Index 25.52 06/03/2022 8:21 AM ENGRAVER LETTERING documented in this encounter Progress Notes * Yolie Chao NP - 06/03/2022 8:30 AM CST Images from the original note were not included. [facility] Group Cardiology [address] [place] [address] Date of Visit: 06/03/2022 Patient ID: Lm [...] required hospitalization and appendectomy. He presented to [facility] on 01/01/2021 under the advice [...] loaded on amiodarone. 01/18/21 Hospital follow-up with BATCH MIXER - Lm Jimenez comes to the office [...] for this visit: Coronary artery disease involving [place] coronary artery of [place] heart without angina pectoris (Primary) Chronic HFrEF [...] V ICD implanted under the care of [facility]. He has follow-up there next month. Continue anticoagulation with Eliquis. Return to the office to see Dr. Barnes in 3-4 months. Call us sooner with questions or concerns. 06/03/2022 KITTY Bolanos-BC Nurse Practitioner with [facility] Cardiology This note is dictated and transcribed using [employer] Direct Software. Manager Real Estate variancesmay occur. Despite proofreading, typographical errors may occur. AVER LETTERING documented in this encounter Plan of Treatment Not on file documented as of this encounter Visit Diagnoses Diagnosis Coronary artery disease involving [place] coronary artery of [place] heart without angina pectoris- Primary Chronic HFrEF (heart failure with reduced ejection fraction) (CMS/HCC) ([facility]) S/P AV (atrioventricular) inocente ablation Other postprocedural status 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 Chronic anticoagulation Encounter for long-term (current) use of anticoagulants documented in this encounter Care Teams Soap Maker Relationship Specialty Start Date End Date Tao Jeffers MD [address] [place] [address] PCP - General 12/18/11 Victor M Barnes MD [address] [place], [place] [address] Consulting Physician Cardiology 05/16/21 Zane Lopez MD [address] [place], [place] [id number] Consulting Physician Electrophysiology 05/16/21 Miscellaneous, Not In File 05/23/21 documented as of this encounter
--- OUTSIDE RECORDS SUMMARY | 2024-07-30 20:38 | XMS_ITS | Encounter Summary ---
Author Organization [facility] Address [address] [place] [address] Care Team Providers Care Child Care Attendant Name Role Phone Tao Jeffers MD Primary Care Provider [phone] Victor M Barnes MD Unavailable Zane Lopez MD Unavailable Miscellaneous, Not In File Unavailable Unava ilable Reason for Visit * Reason Onset Date Comments Device Checks 02/11/2023 Encounter Details Date Type Department Care Team (Late st Contact Info) Description 02/11/2023 Telephone [facility] Cardiology [address] [place] [address] Ayla Ballesteros MA Device Checks Social History Tobacco Use Types Packs/Day Years Used Date Smoking Tobacco: Former Smokeless Tobacco: Never Sex and Gender Information Value Date Recorded Sex Assigned at Not on file Legal Sex Male 12:29 AM BACK WINDER Gender Identity Not on file Sexual Orientation [...] 1:39 PM CDT Kaycee will you contact [facility] and arrange for transfer of his remote transfer. Please schedule the appropriate device f/u. Thank you. * Telephone Encounter - Ayla Ballesteros MA - 02/11/2023 12:59 PM CDT Daniel Scott and LOYDA Benoit saw pt today and asked if you could transfer pacer checks to us from [employer]? Thank you!! documented in this encounter Plan of Treatment Not on file documented as of this encounter Visit Diagnoses Not on filedocumented in this encounter Care Teams Child Care Attendant Relationship Specialty Start Date End Date Tao Jeffers MD [address] [place], [place] [phone] PCP - General 12/18/11 Victor M Barnes MD [address] [place] [address] Consulting Physician Cardiology 05/16/21 Zane Lopez MD [address] [place] [address] Consulting Physician Electrophysiology 05/16/21 Miscellaneous, Not In File 05/23/21 documented as of this encounter
--- OUTSIDE RECORDS SUMMARY | 2024-07-30 20:38 | XMS_ITS | Encounter Summary ---
Author Organization [facility] Address [address] [place] [address] Care Team Providers Care Cotton Ball Bagger Name Role Phone Tao Jeffers MD Primary Care Provider Victor M Barnes MD Unavailable Zane Lopez MD Unavailable [phone] Miscellaneous, Not In File Unavailable Unava ilable Encounter Details Date Type Department Care Team (Late st Contact Info) Description 05/19/2022 Orders Only [facility] Information Management [address] [place] [address] Scanning, Provider Social History Tobacco Use Types Packs/Day Years Used Date Smoking Tobacco: Former Smokeless Tobacco: Never Sex and Gender Information Value Date Recorded Sex Assigned at Not on file 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
--- OUTSIDE RECORDS SUMMARY | 2024-07-30 20:38 | XMS_ITS | Encounter Summary ---
Author Organization [facility] Medical Group Address [address] [place] [address] Care Team Providers Care Linoleum Floor Installer Name Role Phone Tao Jeffers MD Primary Care Provider [phone] Victor M Barnes MD Unavailable Zane Lopez MD Unavailable [phone] Miscellaneous, Not In File Unavailable Unava ilable Reason for Visit * Reason Comments Follow-up 4 mo f/u Coronary Artery Disease ICD in situ Encounter Details Date Type Department Care Team (Late st Contact Info) Description 10/06/2022 9:15 AM CDT Office Visit [facility] Medical [facility] Cardiology [address] [facility] [address] [place] [address] Victor M Barnes MD [address] [facility] [address] [place] [address] Chronic HFrEF (heart failure with reduced ejection fraction) (CMS/HCC) (HCC) (Primary Dx); Ischemic cardiomyopathy; Coronary artery disease involving swinomish coronary artery of swinomish heart without angina pectoris; Paroxysmal atrial fibrillation [...] on file 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 -EF 35% by Echo, [facility]. -EF 45% by Echo 09/2021, improved. [...] required hospitalization and appendectomy. He presented to [facility] on 01/01/2021 under the [...] loaded on amiodarone. 01/18/21 Hospital follow-up with COLLATERAL CLERK - Lm Jimenez comes to the office [...] a presyncopal episode: he fell into the [place] waste bin head first, got himself up [...] and I told him to contact his order desk caller and get a appointment next week. 08/30/21 Interpretation Summary This patient received a Ji BiV ICD. They had a routine [employer] remote transmission on 08/26/2021. Device implant indications: [...] medical record, and bloodwork/lipids. Сергей Barnes MD, [facility] This note is dictated and transcribed using [employer] Direct Software. Insulation Cutter And Former variancesmay occur. Despite proofreading, typographical errors may occur. documented in this encounter Plan of Treatment Not on file documented as of this encounter Visit Diagnoses Diagnosis Chronic HFrEF (heart failure with reduced ejection fraction) (CMS/HCC) (HCC)- Primary Ischemic cardiomyopathy Other specified forms of chronic ischemic heart disease Coronary artery disease involving swinomish coronary artery of swinomish heart without angina pectoris Paroxysmal atrial fibrillation (CMS/HCC) ([facility]) Atrial fibrillation HTN (hypertension), benign Essential hypertension, [...] documented as of this encounter Care Teams Linoleum Floor Installer Relationship Specialty Start Date End Date Tao Jeffers MD [address] [place], [place] [address] PCP - General 12/18/11 Victor M Barnes MD [address] [place] [address] Consulting Physician Cardiology 05/16/21 Zane Lopez MD [address] [place] [address] Consulting Physician Electrophysiology 05/16/21 Miscellaneous, Not In File 05/23/21 documented as of this encounter
--- OUTSIDE RECORDS SUMMARY | 2024-07-30 20:38 | XMS_ITS | Encounter Summary ---
Author Organization [facility] Medical Group Address [address] [facility] [address] [place] [address] Care Team Providers Care Thermal Cutting Tracer Machine Operator Name Role Phone Tao Jeffers MD Primary Care Provider [phone] Victor M Barnes MD Unavailable [phone] Zane Lopez MD Unavailable [phone] Miscellaneous, Not In File Unavailable Unava ilable Reason for Visit * Reason Comments New Patient * Consultation (Routine) - Closed Specialty Diagnoses / Procedures Referred By Contac t Referred To Contact Cardiology Diagnoses Coronary artery disease involving la posta coronary artery of la posta heart without angina pectoris Chronic HFrEF (heart failure with reduced ejection fraction) (CMS/HCC) (HCC) Ischemic cardiomyopathy Paroxysmal atrial fibrillation (CMS/HCC) (HCC) S/P AV (atrioventricular) inocente ablation S/P coronary artery stent placement 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 Victor M Barnes MD [address] [place] [address] Phone: tel: fax: Freddie Cao MD [address] [address] Phone: tel: fax: Referral ID Status Reason Start Date Expiration Date V isits Requested Visits Authorized [id number] Closed Specialty Services Required 02/11/2023 03/12/2024 1 1 Encounter Details Date Type Department Care Team (Latest Contact Info) Description 04/21/2023 9:15 AM CDT Office Visit [facility] Cardiology [address] [place] [address] Freddie Cao MD [address] [place] [address] Biventricular implantable cardioverter-defibrill ator (ICD) in situ (Primary Dx); Coronary artery disease involving la posta coronary artery of la posta heart without angina pectoris; Chronic HFrEF (heart failure with reduced ejection fraction) (CMS/HCC) (HCC); Ischemic cardiomyopathy; Permanent atrial fibrillation (CMS/HCC) ([facility]); S/P AV (atrioventricular) inocente ablation; S/P coronary artery stent placement; Mixed dyslipidemia Social History Tobacco Use Types Packs/Day Years Used Date Smoking Tobacco: Former Smokeless Tobacco: Never Tobacco Cessation:Counseling Given: Not Answered Sex and Gender Information Value Date Recorded Sex Assigned at Not on file 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 I have reviewed the pertinent data originating outside our institution and outside my specialty within our institution and summarized the pertinent information below. As you well know, he is a 82 y.o. male with the following arrhythmia-specific history: 1. 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 Lopez, [facility]) in setting of difficult to control AF despite Amiodarone with plans for AVN ablation Underwent AVJ RFA 06/11/21(Dr. Lopez, [facility]) Most recent EF evaluation in 09/2021 with [...] Normal appearance. Neurological: alert, oriented Skin: Left-sided SUPERVISOR GROWER D in place, no erythema no edema. [...] lipid panel (I25.10) Coronary artery disease involving la posta coronary artery of la posta heart without angina pectoris Plan: Ambulatory referral to Cardiac Electrophysiology, POCT lipid panel (I50.22) Chronic HFrEF (heart failure with reduced ejection fraction) ([facility]) ([facility]) Plan: Ambulatory referral to Cardiac Electrophysiology, Basic metabolic panel (I25.5) Ischemic cardiomyopathy Plan: Ambulatory referral to Cardiac Electrophysiology (I48.0) Paroxysmal atrial fibrillation ([facility]) ([facility]) Plan: Ambulatory referral to Cardiac Electrophysiology (Z98.890) [...] here to establish care #permAF: Status post SUPERVISOR GROWER D and AV inocente ablation. Patient is [...] 9:34 AM CDT Coronary artery disease involving la posta coronary artery of la posta heart without angina pectoris Mixed dyslipidemia ECG 12-LEAD Routine 04/21/2023 S/P AV (atrioventricular) inocente ablation documented in this encounter Results * Basic metabolic panel (04/21/2023 10:01 AM CDT) Sodium 139 135 - 145 mmol/L [facility] Comment:Testing performed by : [address], [place] [address] Potassium, pl 4.7 3.3 - 4.9 mmol/L C[facility]ER CH Comment:Testing performed by : [address], [place] [address] Chloride 102 97 - 110 mmol/L [facility] Comment:Testing performed by : [address], [place] [address] CO2 28 22 - 32 mmol/L [facility]ER CH Comment:Testing performed by : [address], [place] [address] Anion gap 9 2 - 15 mmol/L [facility] CH Comment:Testing performed by : [address], [place] [address] BUN 17 6 - 25 mg/dL [facility] CH Comment:Testing performed by : [address], [place] [address] Creatinine 1.02 0.80 - 1.30 mg/dL [facility] CH Comment:Testing performed by : [address], [place] [address] Glucose 102 70 - 199 mg/dL CERNER [...] was last revised 2022. Testing performed by: [address], [place] [address] Calcium 9.5 8.5 - 10.3 mg/dL [facility] CH Comment:Testing performed by : [address], [place] [address] Blood 04/21/2023 10:0 1 AM CDT 04/21/2023 10:05 AM CDT Freddie Cao MD LAB BLOOD ORDERABLES F inal Result JADIEL CALHOUN [address] [facility] [place] [address] * POCT lipid panel (04/21/2023 9:34 AM [...] in situ- Primary Coronary artery disease involving la posta coronary artery of la posta heart without angina pectoris Chronic HFrEF (heart failure with reduced ejection fraction) ([facility]) ([facility]) Ischemic cardiomyopathy Other specified forms of chronic [...] 04/21/2023 documented in this encounter Care Teams Thermal Cutting Tracer Machine Operator Relationship Specialty Start Date End Date Tao Jeffers MD [address] [place], [place] [address] PCP - General 12/18/11 Victor M Barnes MD [address] [place] [address] Consulting Physician Cardiology 05/16/21 Zane Lopez MD [address] [place], [place] [address] Consulting Physician Electrophysiology 05/16/21 Miscellaneous, Not In File 05/23/21 documented as of this encounter
--- OUTSIDE RECORDS SUMMARY | 2024-07-30 20:38 | XMS_ITS | Encounter Summary ---
Author Organization [facility] Healthcare Address [address] [place] [address] Care Team Providers Care Ladle Operator Name Role Phone Tao Jeffers MD Primary Care Provider [phone] Victor M Barnes MD Unavailable [phone] Zane Lopez MD Unavailable [phone] Miscellaneous, Not In File Unavailable Unava ilable Reason for Visit * Cardiology (Routine) - Closed Specialty Diagnoses / Procedures Referred By Contac t Referred To Contact Diagnoses Ischemic cardiomyopathy Procedures DEVICE CHECK - REMOTE Ceasar Rosas MD [address] [address] Phone: tel: fax: [facility] Medical Group Referral ID Status Reason Start Date Expiration Date Visits Re quested Visits Authorized [id number] Closed 09/03/2022 03/03/2024 1 1 Encounter Details Date Type Department Care Team (Latest Contact Info) Description 09/08/2023 7:45 AM EQUIPMENT ASSOCIATE Ancillary Procedure [facility] Medical [facility] Cardiology [address] [facility] [address] [place] [address] Biventricular implantable cardioverter-defibril lator (ICD) in situ [Z95.810] (Primary Dx); Ischemic cardiomyopathy; Paroxysmal atrial fibrillation (CMS/HCC) (HCC) [I48.0]; Chronic HFrEF (heart failure with reduced ejection fraction) (CMS/HCC) (HCC) [I50.22] Social History Tobacco Use Types Packs/Day Years Used Date Smoking Tobacco: Former Smokeless Tobacco: Never Sex and Gender Information Value Date Recorded Sex Assigned at Not on file Legal Sex Male 12:29 AM EQUIPMENT ASSOCIATE Gender Identity Not on file Sexual Orientation Not on file documented as of this encounter Plan of Treatment Not on file documented as of this encounter Procedures Procedure Name Priority Date/Time Associated Diagnosis Comments DEVICE CHECK - REMOTE Routine 09/09/2023 9:39 AM EQUIPMENT ASSOCIATE Ischemic cardiomyopathy documented in this encounter Results * DEVICE CHECK - REMOTE (09/09/2023 9:39 AM EQUIPMENT ASSOCIATE) Anatomical Region Laterality Modality Other Narrative 11/20/2023 8:10 AM CDT Ji Bessemer BI-V ICD imp on 05/23/21 for ICM/CHF/PAF, s/p AVN ablation on 06/10/21. ??Cameron (Card-Follows) - Gerry. Routine VVI ICD Remote. Transmission attached. Battery status-Ok, 5.5 years remaining to JIAN. Stable Charge time and Shock impedance. Stable lead impedances, pacing and sensing threshold. Presenting: BIV Paced Bi-V P->98 %. (No) Ventricular tachy arrhythmias detected. ?? Medication: Eliquis, Toprol XL, Entresto. Follow up: [facility] remote f/u 12/08/2023. Sonia Tomas, RN Ceasar [...] [I50.22] documented in this encounter Care Teams Ladle Operator Relationship Specialty Start Date End Date Tao Jeffers MD [address] [place] [address] PCP - General 12/18/11 Victor M Barnes MD [address] [place], [place] [address] Consulting Physician Cardiology 05/16/21 Zane Lopez MD [address] [place], [place] [address] Consulting Physician Electrophysiology 05/16/21 Miscellaneous, Not In File 05/23/21 documented as of this encounter
--- OUTSIDE RECORDS SUMMARY | 2024-07-30 20:38 | XMS_ITS | Encounter Summary ---
Author Organization [facility] Healthcare Address [address] [place] [address] Care Team Providers Care Oil Well Cable Tool Operator Name Role Phone Tao Jeffers MD Primary Care Provider Victor M Barnes MD Unavailable Zane Lopez MD Unavailable Miscellaneous, Not In File Unavailable Unava ilable Reason for Visit * Reason Comments Follow-up 3 mo f/u Coronary Artery Disease Encounter Details Date Type Department Care Team (Late st Contact Info) Description 11/11/2023 10:45 AM CDT Office Visit [facility] Medical Group Cardiology [address] [place] [address] Victor M Barnes MD [address] [facility] [address] [place], [place] [id number] 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 -EF 35% by Echo, [facility]. -EF 45% by Echo 09/2021, improved. [...] required hospitalization and appendectomy. He presented to [facility] on 01/01/2021 under the advice [...] loaded on amiodarone. 01/18/21 Hospital follow-up with COUNCILMAN - Lm Jimenez comes to the office [...] and I told him to contact his shopping inspector and get a appointment next week. 08/30/21 [...] Ohara BiV ICD. They had a routine [employer] remote transmission on 11/25/21. Device implant indications: [...] device settings Ayla Colon RN 06/05/23 Ohara Lowell BI-V ICD imp on 05/23/21 for ICM/CHF/PAF, [...] medical record, and bloodwork/lipids. Сергей Barnes MD, [facility] This note is dictated and transcribed using [employer] Direct Software. Gas Pipe Layer variancesmay occur. Despite proofreading, typographical errors may occur. 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
--- OUTSIDE RECORDS SUMMARY | 2024-07-30 20:38 | XMS_ITS | Encounter Summary ---
Author Organization [facility] Medical [facility] Address [address] [facility] [address] [place] [address] Care Team Providers Care Chief Operator Lock Tender Name Role Phone Tao Jeffers MD Primary Care Provider [phone] Victor M Barnes MD Unavailable [phone] Zane Lopez MD Unavailable [phone] Miscellaneous, Not In File Unavailable Unava ilable Reason for Referral * Cardiology (Routine) - Closed Specialty Diagnoses / Procedures Referred By Contac t Referred To Contact Diagnoses Ischemic cardiomyopathy Paroxysmal atrial fibrillation (CMS/HCC) (HCC) Procedures DEVICE CHECK - IN OFFICE Victor M Barnes MD [address] [place] [address] Phone: tel: fax: [facility] Medical Group Referral ID Status Reason Start Date Expiration Date Visits Re quested Visits Authorized [id number] Closed 02/13/2023 07/19/2024 1 1 Encounter Details Date Type Department Care Team (Late st Contact Info) Description 02/13/2023 Orders Only [facility] Medical [facility] Cardiology [address] [facility] [address], [place] [address] Victor M Barnes MD [address] [place] [address] [address] [place] [address] Ischemic cardiomyopathy (Primary Dx); Paroxysmal atrial fibrillation (CMS/HCC) (HCC) Social History Tobacco Use Types Packs/Day Years Used Date Smoking Tobacco: Former Smokeless Tobacco: Never Sex and Gender Information Value Date Recorded Sex Assigned at Not on file Legal Sex Male 12:29 AM CONSULTANT ELECTRONICS Gender Identity Not on file Sexual Orientation Not on file documented as of this encounter Plan of Treatment Not on file documented as of this encounter Results * DEVICE CHECK - IN OFFICE (07/11/2024 7:53 AM CONSULTANT ELECTRONICS) Anatomical Region Laterality Modality Other Narrative 07/13/2024 5:24 PM CONSULTANT ELECTRONICS ReliSen BI-V ICD imp on 05/23/21 for ICM/CHF/PAF, s/p AVN ablation on 06/10/21. ??Cameron (Card-Follows) - Gerry. Office VVIR BIV Pacemaker ICD device interrogation performed by [employer] operations representative. Transmission attached. Stable lead impedances, pacing [...] fibrillation documented in this encounter Care Teams Chief Operator Lock Tender Relationship Specialty Start Date End Date Tao Jeffers MD [address] [place] [address] PCP - General 12/18/11 Victor M Barnes MD [address] [place] [address] Consulting Physician Cardiology 05/16/21 Zane Lopez MD [address] [place] [address] Consulting Physician Electrophysiology 05/16/21 Miscellaneous, Not In File 05/23/21 documented as of this encounter
--- OUTSIDE RECORDS SUMMARY | 2024-07-30 20:38 | XMS_ITS | Encounter Summary ---
Author Organization [facility] Medical Group Address [address] [facility] [address] [place] [address] Care Team Providers Care Utility Plant Operative Name Role Phone Tao Jeffers MD Primary Care Provider [phone] Victor M Barnes MD Unavailable [phone] Zane Lopez MD Unavailable Miscellaneous, Not In File Unavailable Unava ilable Reason for Visit * Cardiology (Routine) - Closed Specialty Diagnoses / Procedures Referred By Contac t Referred To Contact Diagnoses Paroxysmal atrial fibrillation (CMS/HCC) (HCC) Procedures DEVICE CHECK - IN OFFICE Zane oLpez MD [address] [place] [address] Phone: tel: fax: [facility] Referral ID Status Reason Start Date Expiration Date Visits Re quested Visits Authorized [id number] Closed 06/11/2021 07/11/2022 1 1 Encounter Details Date Type Department Care Team (Latest Contact Info) Description 07/02/2022 4:00 PM TREE GIRDLER Ancillary Procedure [facility] [address] [facility] [address] [id number] Paroxysmal atrial fibrillation (CMS/HCC) (HCC); Biventricular implantable cardioverter-defibri llator (ICD) in situ Social History Tobacco Use Types Packs/Day Years Used Date Smoking Tobacco: Former Smokeless Tobacco: Never Sex and Gender Information Value Date Recorded Sex Assigned at Not on file Legal Sex Male 12:29 AM TREE GIRDLER Gender Identity Not on file Sexual Orientation Not on file documented as of this encounter Plan of Treatment Not on file documented as of this encounter Procedures Procedure Name Priority Date/Time Associated Diagnosis Comments DEVICE CHECK - IN OFFICE Routine 07/02/2022 3:06 PM TREE GIRDLER Paroxysmal atrial fibrillation (CMS/HCC) (HCC) documented in this encounter Results * DEVICE CHECK - IN OFFICE (07/02/2022 3:06 PM TREE GIRDLER) Anatomical Region Laterality Modality Other Narrative 07/02/2022 4:34 PM TREE GIRDLER Table formatting from the original result was [...] situ documented in this encounter Care Teams Utility Plant Operative Relationship Specialty Start Date End Date Tao Jeffers MD [address] [place] [address] PCP - General 12/18/11 Victor M Barnes MD [address] [place], [place] [address] Consulting Physician Cardiology 05/16/21 Zane Lopez MD [address] [place] [address] Consulting Physician Electrophysiology 05/16/21 Miscellaneous, Not In File 05/23/21 documented as of this encounter
--- OUTSIDE RECORDS SUMMARY | 2024-07-30 20:38 | XMS_ITS | Encounter Summary ---
Author Organization [facility] Medical Group Address [address] [facility] [address] [place] [address] Care Team Providers Care Maid Supervisor Name Role Phone Tao Jeffers MD Primary Care Provider [phone] Victor M Barnes MD Unavailable [phone] Zane Lopez MD Unavailable [phone] Miscellaneous, Not In File Unavailable Unava ilable Reason for Visit * Cardiology (Routine) - Closed Specialty Diagnoses / Procedures Referred By Contac t Referred To Contact Diagnoses Ischemic cardiomyopathy Procedures DEVICE CHECK - REMOTE Ceasar Rosas MD [address] [address] Phone: tel: fax: [facility] Medical [facility] Referral ID Status Reason Start Date Expiration Date Visits Re quested Visits Authorized [id number] Closed 09/03/2022 03/03/2024 1 1 Encounter Details Date Type Department Care Team (Latest Contact Info) Description 09/08/2022 1:15 PM PNEUMATIC JACKETER Ancillary Procedure [facility] [address] [facility] [address] [place] [phone] Ischemic cardiomyopathy; Biventricular implantable cardioverter-defibr illator (ICD) in situ Social History Tobacco Use Types Packs/Day Years Used Date Smoking Tobacco: Former Smokeless Tobacco: Never Sex and Gender Information Value Date Recorded Sex Assigned at Not on file Legal Sex Male 12:29 AM PNEUMATIC JACKETER Gender Identity Not on file Sexual Orientation Not on file documented as of this encounter Plan of Treatment Not on file documented as of this encounter Procedures Procedure Name Priority Date/Time Associated Diagnosis Comments DEVICE CHECK - REMOTE Routine 09/08/2022 10:46 AM PNEUMATIC JACKETER Ischemic cardiomyopathy documented in this encounter Results * DEVICE CHECK - REMOTE (09/08/2022 10:46 AM PNEUMATIC JACKETER) Anatomical Region Laterality Modality Other Narrative 09/10/2022 3:25 PM PNEUMATIC JACKETER Table formatting from the original result was [...] ohms N/A Battery Status: ??6.3 years to [facility], charge time 8.8 seconds. Episodes last 90 [...] situ documented in this encounter Care Teams Maid Supervisor Relationship Specialty Start Date End Date Tao Jeffers MD [address] [place] [address] PCP - General 12/18/11 Victor M Barnes MD [address] [place] [address] Consulting Physician Cardiology 05/16/21 Zane Lopez MD [address] [place] [address] Consulting Physician Electrophysiology 05/16/21 Miscellaneous, Not In File 05/23/21 documented as of this encounter
--- OUTSIDE RECORDS SUMMARY | 2024-07-30 20:38 | XMS_ITS | Encounter Summary ---
Author Organization [facility] Medical Group Address [address] [place] [address] Care Team Providers Care Moss Gatherer Name Role Phone Tao Jeffers MD Primary Care Provider [phone] Victor M Barnes MD Unavailable [phone] Zane Lopez MD Unavailable Miscellaneous, Not In File Unavailable Unava ilable Reason for Visit * Cardiology (Routine) - Closed Specialty Diagnoses / Procedures Referred By Contac t Referred To Contact Diagnoses Ischemic cardiomyopathy Procedures DEVICE CHECK - REMOTE Ceasar Rosas MD [address] [facility] [address] [address] Phone: tel: fax: [facility] Medical Group Referral ID Status Reason Start Date Expiration Date Visits Re quested Visits Authorized [id number] Closed 09/03/2022 03/03/2024 1 1 Encounter Details Date Type Department Care Team (Latest Contact Info) Description 12/08/2022 2:15 PM CDT Ancillary Procedure Arrhythmia Center [address] [facility] [address] [place] [id number] Biventricular implantable cardioverter-defibrill ator (ICD) in situ (Primary Dx); Ischemic cardiomyopathy Social History Tobacco Use Types Packs/Day Years Used Date Smoking Tobacco: Former Smokeless Tobacco: Never Sex and Gender Information Value Date Recorded Sex Assigned at Not on file Legal Sex Male 12:29 AM EMBEDDED SYSTEMS DESIGNER Gender Identity Not on file Sexual Orientation [...] disease documented in this encounter Care Teams Moss Gatherer Relationship Specialty Start Date End Date Tao Jeffers MD [address] [place], [place] [address] PCP - General 12/18/11 Victor M Barnes MD [address] [place] [address] Consulting Physician Cardiology 05/16/21 Zane Lopez MD [address] [place], [place] [address] Consulting Physician Electrophysiology 05/16/21 Miscellaneous, Not In File 05/23/21 documented as of this encounter
--- OUTSIDE RECORDS SUMMARY | 2024-07-30 20:39 | XMS_ITS | Encounter Summary ---
Author Organization [facility] Medical Group Address [address] [facility] [address] [place] [address] Care Team Providers Care Clinical Nurse Occupational Medicine Name Role Phone Tao Jeffers MD Primary Care Provider [phone] Victor M Barnes MD Unavailable [phone] Zane Lopez MD Unavailable [phone] Miscellaneous, Not In File Unavailable Unava ilable Reason for Referral * Cardiology (Routine) - Closed Specialty Diagnoses / Procedures Referred By Contac t Referred To Contact Diagnoses Ischemic cardiomyopathy Procedures DEVICE CHECK - REMOTE Zane Lopez MD [address] [place] [address] Phone: tel: fax: [facility] Medical Group Referral ID Status Reason Start Date Expiration Date Visits Re quested Visits Authorized [id number] Closed 05/24/2021 06/23/2022 1 1 * Cardiology (Routine) - Closed Specialty Diagnoses / Procedures Referred By Contac t Referred To Contact Diagnoses Ischemic cardiomyopathy Procedures DEVICE CHECK - REMOTE Zane Lopez MD [address] [place] [address] Phone: tel: fax: [facility] Medical Group Referral ID Status Reason Start Date Expiration Date Visits Re quested Visits Authorized [id number] Closed 05/24/2021 06/23/2022 1 1 * Cardiology (Routine) - Closed Specialty Diagnoses / Procedures Referred By Contac t Referred To Contact Diagnoses Ischemic cardiomyopathy Procedures DEVICE CHECK - REMOTE Zane Lopez MD [address] [place] [address] Phone: tel: fax: [facility] Medical Group Referral ID Status Reason Start Date Expiration Date Visits Re quested Visits Authorized [id number] Closed 05/24/2021 06/23/2022 1 1 * Cardiology (Routine) - Closed Specialty Diagnoses / Procedures Referred By Contalisia t Referred To Contact Diagnoses Ischemic cardiomyopathy Procedures DEVICE CHECK - REMOTE Zane Lopez MD [address] [place] [address] Phone: tel: fax: [facility] Medical Group Referral ID Status Reason Start Date Expiration Date Visits Re quested Visits Authorized [id number] Closed 05/24/2021 06/23/2022 1 1 * Cardiology (Routine) - Closed Specialty Diagnoses / Procedures Referred By Contalisia t Referred To Contact Diagnoses Ischemic cardiomyopathy Procedures DEVICE CHECK - IN OFFICE Zane Lopez MD [address] [place] [address] Phone: tel: fax: [facility] Medical Group Referral ID Status Reason Start Date Expiration Date Visits Re quested Visits Authorized [id number] Closed 05/24/2021 06/23/2022 1 1 Encounter Details Date Type Department Care Team (Late st Contact Info) Description 05/24/2021 Orders Only Arrhythmia Center [address] [facility] [address] [place] [address] Zane Lopez MD [address] [facility] [address] [place] [address] Ischemic cardiomyopathy (Primary Dx) Social History Tobacco Use Types Packs/Day Years Used Date Smoking Tobacco: Former Smokeless Tobacco: Never Sex and Gender Information Value Date Recorded Sex Assigned at Not on file Legal Sex Male 12:29 AM COMMERCIAL SEWING INSTRUCTOR Gender Identity Not on file Sexual Orientation Not on file documented as of this encounter Plan of Treatment Not on file documented as of this encounter Results * DEVICE CHECK - REMOTE (06/09/2022 11:12 AM COMMERCIAL SEWING INSTRUCTOR) Anatomical Region Laterality Modality Other Narrative 06/12/2022 12:25 PM COMMERCIAL SEWING INSTRUCTOR Table formatting from the original result was [...] DEVICE CHECK - REMOTE (08/26/2021 11:14 AM COMMERCIAL SEWING INSTRUCTOR) Anatomical Region Laterality Modality Other Narrative 08/30/2021 1:58 PM COMMERCIAL SEWING INSTRUCTOR This patient received a Ji BiV ICD. [...] 9.0 seconds Episodes last 90 days/Comments: AF Kennedy 100 %, patient is in chronic atrial [...] situ documented in this encounter Care Teams Clinical Nurse Occupational Medicine Relationship Specialty Start Date End Date Tao Jeffers MD [address] [place] [address] PCP - General 12/18/11 Victor M Barnes MD [address] [place], [place] [id number] Consulting Physician Cardiology 05/16/21 Zane Lopez MD [address] [place], [place] [address] Consulting Physician Electrophysiology 05/16/21 Miscellaneous, Not In File 05/23/21 documented as of this encounter
--- OUTSIDE RECORDS SUMMARY | 2024-07-30 20:39 | XMS_ITS | Encounter Summary ---
Author Organization [facility] Healthcare Address [address] [place] [address] Care Team Providers Care Retail Team Member Name Role Phone Tao Jeffers MD Primary Care Provider Victor M Barnes MD Unavailable Zane Lopez MD Unavailable Miscellaneous, Not In File Unavailable Unava ilable Encounter Details Date Type Department Care Team (Latest Contact Info) Description 05/23/2021 1:45 PM CDT - 05/23/2021 4:[address] [facility] Electrophysiology Lab [address] [place] [address] Zane Lopez MD [address] [facility] [address], [place] [address] INSERT/REPLACE IMPLANTABLE CARDIOVERTER-DEFIBRI LLATOR (ICD) DUAL CHAMBER SYSTEM 26532 Surgery Details Date/Time Status Location OR Service Patient Class Case Class Case Type Trauma Case? 05/23/2021 1:45 PM Posted [facility] EP [facility] EP D Cardiovascular Outpatient Elective Panel 1 Procedure LRB Anes Op Region Wound Class Comments INSERT/REPLACE IMPLANTABLE CARDIOVERTER-DEFIBRILLATOR (ICD) DUAL CHAMBER SYSTEM 48007 N/A Choice [facility] INSERT LV LEAD W PACEMAKER ( PPM) OR IMPLANTABLE CARDIOVERTER-DEFIBRILLATOR (ICD) PLACEMENT (+) 24705 N/A Choice [facility] Surgeon Surgeon Role Service Panel Zane Lopez MD Primary Cardiovascular 1 [facility]# [id number] / [id number]/DR. Lopez BIV ICD Implant/[facility] documented in this encounter Social History Tobacco Use Types Packs/Day Years Used Date Smoking Tobacco: Former Smokeless Tobacco: Never Sex and Gender Information Value Date Recorded Sex Assigned at Not on file Legal Sex Male 12:29 AM VP EMERGING MEDIA Gender Identity Not on file Sexual Orientation [...] - 05/23/2021 5:43 PM CDT Cardiac Laboratory [facility] [place], [place] [address] [facility] Discharge Instructions---Implant MEDICATIONS [] Home Medications Returned [...] home diet [] Special diet Instructed by Marketing Project Manager ACTIVITY You have been given medications which [...] with you, please read the instructions and animal caretaker supervisor the monitor. Additional Instructions ??? Extra Strength Tylenol may be taken every 6 hours as needed for pain. ??? You should avoid strong magnetic currents (large electrical generators, arc welding). You can operate any home electrical appliances including microwave ovens. ??? Notify the physician office at [phone], immediately if you develop abrupt dizziness or shortness of breath. If you feel there is an urgent matter, call 911 or go to the emergency room. ??? Call the office at [phone] with any questions or concerns. Call to schedule a follow-up appointment / wound check. This should be done in the first 7-10 days following your procedure. Zane Lopez MD, [facility] - Cardiac Solar Sales Assessor Ceasar Rosas MD, MPH, [facility] - Cardiac Solar Sales Assessor documented in this encounter Medications at Time [...] INSERT/REPLACE IMPLANTABLE CARDIOVERTER-DEFIBRILLATOR (ICD) DUAL CHAMBER SYSTEM 32791 INSERT LV LEAD W PACEMAKER (PPM) OR IMPLANTABLE CARDIOVERTER-DEFIBRILLATOR (ICD) PLACEMENT (+) 06007 Source Note - Zane Lopez MD - [...] Class 3. CAD status post PCI Plan: LION TAMER ICD and AV node ablation. Will performed [...] PM CDT) 05/23/2021 4:53 PM CDT Narrative [facility] - 05/24/2021 11:20 AM CDT Vent Rate: 92 bpm RR Interval: 647 msec MA Interval: 0 msec QRS Duration: 104 msec QT Interval: 366 msec QTC Interval: 416 msec P-R-T [place]: 0 - 15 - -60 degrees ATRIAL FIBRILLATION MODERATE T-WAVE ABNORMALITY, CONSIDER ANTEROLATERAL ISCHEMIA ABNORMAL ECG Electronically Signed By: Lm Smallwood MD us Zane Lopez MD ECG ORDERABLES Final Resul t [facility] * ICD DC NEW, INSERTION [...] 25%, and class 3 chronic systolic CHF, LION TAMER ICD is recommended as part of the [...] PM CDT) 05/23/2021 1:19 PM CDT Narrative [facility] - 05/23/2021 1:36 PM CDT Vent Rate: 109 bpm RR Interval: 546 msec MA Interval: 0 msec QRS Duration: 107 msec QT Interval: 359 msec QTC Interval: 423 msec P-R-T [place]: 0 - 42 - -30 degrees ATRIAL FIBRILLATION WITH RAPID VENTRICULAR RESPONSE NONSPECIFIC ST \T\ T-WAVE ABNORMALITY ABNORMAL ECG Electronically Signed By: Lm Woods DO, [facility] us Zane Lopez MD ECG ORDERABLES Final Resul t [facility] documented in this encounter Visit [...] 05/23/2021 documented in this encounter Care Teams Retail Team Member Relationship Specialty Start Date End Date Tao Jeffers MD [address] [place] [address] PCP - General 12/18/11 Victor M Barnes MD [address] [place], [place] [address] Consulting Physician Cardiology 05/16/21 Zane Lopez MD [address] [place], [place] [address] Consulting Physician Electrophysiology 05/16/21 Miscellaneous, Not In File 05/23/21 documented as of this encounter
--- OUTSIDE RECORDS SUMMARY | 2024-07-30 20:39 | XMS_ITS | Encounter Summary ---
Author Organization [facility] Healthcare Address [address] [place] [address] Care Team Providers Care Epoxy Coatings Installer Name Role Phone Tao Jeffers MD Primary Care Provider [phone] Victor M Barnes MD Unavailable Zane Lopez MD Unavailable Miscellaneous, Not In File Unavailable Unava ilable Encounter Details Date Type Department Care Team (Latest Contact Info) Description 05/23/2021 11:38 AM CDT - 05/23/2021 7:39 PM CDT Hospital Encounter [facility] Electrophysiology Lab [address] [place] [address] Zane Lopez MD [address] [facility] [address], [place] [address] Paroxysmal atrial fibrillation (CMS/HCC) (HCC) Discharge Disposition: Discharge to home or self care Social History Tobacco Use Types Packs/Day Years Used Date Smoking Tobacco: Former Smokeless Tobacco: Never Sex and Gender Information Value Date Recorded Sex Assigned at Not on file 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 Carry this in your wallet until yourpermanent card arrives, usually in 6-8 weeks. ??? A monitor will be sent home with you, please read the instructions and model making supervisor the monitor. Additional Instructions ??? Extra Strength Tylenol may be taken every 6 hours as needed for pain. ??? You should avoid strong magnetic currents (large electrical generators, arc welding). You can operate any home electrical appliances including microwave ovens. ??? Notify the physician office at [phone], immediately if you develop abrupt dizziness or shortness of breath. If you feel there is an urgent matter, call 491 or go to the emergency room. ??? Call the office at [phone] with any questions or concerns. Call to schedule a follow-up appointment / wound check. This should be done in the first 7-10 days following your procedure. Zane Lopez MD, [facility] - Cardiac Chemical Operations And Training Ceasar Rosas MD, MPH, [facility] - Cardiac Chemical Operations And Training documented in this encounter Medications at Time [...] INSERT/REPLACE IMPLANTABLE CARDIOVERTER-DEFIBRILLATOR (ICD) DUAL CHAMBER SYSTEM 33827 INSERT LV LEAD W PACEMAKER (PPM) OR IMPLANTABLE CARDIOVERTER-DEFIBRILLATOR (ICD) PLACEMENT (+) 12445 Source Note - Zane Lopez MD - [...] Class 3. CAD status post PCI Plan: ECONOMIC HISTORIAN ICD and AV node ablation. Will performed in staged fashion Hold [facility] 2 days prior Zane Lopez MD documented [...] PM CDT) 05/23/2021 4:53 PM CDT Narrative [facility] - 05/24/2021 11:20 AM CDT Vent Rate: 92 bpm RR Interval: 647 msec ND Interval: 0 msec QRS Duration: 104 msec QT Interval: 366 msec QTC Interval: 416 msec P-R-T [place]: 0 - 15 - -60 degrees ATRIAL FIBRILLATION MODERATE T-WAVE ABNORMALITY, CONSIDER ANTEROLATERAL ISCHEMIA ABNORMAL ECG Electronically Signed By: Lm Smallwood MD us Zane Lopez MD ECG ORDERABLES Final Resul t [facility] * ICD DC NEW, INSERTION [...] 25%, and class 3 chronic systolic CHF, ECONOMIC HISTORIAN ICD is recommended as part of the [...] PM CDT) 05/23/2021 1:19 PM CDT Narrative [facility] - 05/23/2021 1:36 PM CDT Vent Rate: 109 bpm RR Interval: 546 msec ND Interval: 0 msec QRS Duration: 107 msec QT Interval: 359 msec QTC Interval: 423 msec P-R-T [place]: 0 - 42 - -30 degrees ATRIAL FIBRILLATION WITH RAPID VENTRICULAR RESPONSE NONSPECIFIC ST \T\ T-WAVE ABNORMALITY ABNORMAL ECG Electronically Signed By: Lm Woods DO, [facility] Zane Lopez MD ECG ORDERABLES Final Resul t [facility] documented in this encounter Visit [...] 05/23/2021 documented in this encounter Care Teams Epoxy Coatings Installer Relationship Specialty Start Date End Date Tao Jeffers MD [address] [place], [place] [address] PCP - General 12/18/11 Victor M Barnes MD [address] [place], [place] [address] Consulting Physician Cardiology 05/16/21 Zane Lopez MD [address] [place] [address] Consulting Physician Electrophysiology 05/16/21 Miscellaneous, Not In File 05/23/21 documented as of this encounter
--- OUTSIDE RECORDS SUMMARY | 2024-07-30 20:39 | XMS_ITS | Encounter Summary ---
Author Organization [facility] Medical Group Address [address] [facility] [address] [place] [address] Care Team Providers Care Electric Wirer Name Role Phone Tao Jeffers MD Primary Care Provider [phone] Victor M Barnes MD Unavailable Zane Lopez MD Unavailable [phone] Miscellaneous, Not In File Unavailable Unava ilable Reason for Visit * Reason Comments Follow-up Discuss holding bloo d thinners to go to dentist. Coronary Artery Disease Atrial Fibrillation Encounter Details Date Type Department Care Team (Latest Contact Info) Description 04/03/2022 8:30 AM CDT Office Visit 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 (Primary Dx); Chronic HFrEF (heart failure with reduced ejection fraction) (CMS/HCC) ([facility]); HTN (hypertension), benign; CAMACHO (dyspnea on exertion); Paroxysmal atrial fibrillation (CMS/HCC) ([facility]); Mixed dyslipidemia; S/P AV (atrioventricular) inocente ablation; S/P coronary artery stent placement; Biventricular implantable cardioverter-defibrillat or (ICD) in situ; Ischemic cardiomyopathy; Chronic anticoagulation Social History Tobacco Use Types Packs/Day Years Used Date Smoking Tobacco: Former Smokeless Tobacco: Never Tobacco Cessation:Counseling Given: Not Answered Sex and Gender Information Value Date Recorded Sex Assigned at Not on file 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 -EF 35% by Echo, [facility]. -EF 45% by Echo 09/2021, improved. [...] required hospitalization and [facility]. [facility] under the advice of [...] loaded on amiodarone. 01/18/21 Hospital follow-up with [facility] - Lm Jimenez comes to the office [...] and I told him to contact his parts counterperson and get a appointment next week. 08/30/21 [...] medical record, and bloodwork/lipids. Сергей Barnes MD, [facility] This note is dictated and transcribed using [employer] Software. Information Assurance Manager variancesmay occur. 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 pectoris- Primary Chronic HFrEF (heart failure with reduced ejection fraction) (CMS/[facility]) ([facility]) HTN (hypertension), benign Essential hypertension, benign CAMACHO (dyspnea on exertion) Other dyspnea and respiratory abnormality Paroxysmal atrial fibrillation (CMS/[facility]) ([facility]) Atrial fibrillation Mixed dyslipidemia S/P AV (atrioventricular) [...] documented as of this encounter Care Teams Electric Wirer Relationship Specialty Start Date End Date Tao Jeffers MD [address] [place] [address] PCP - General 12/18/11 Victor M Barnes MD [address] [place] [address] Consulting Physician Cardiology 05/16/21 Zane Lopez MD [address] [place], [place] [address] Consulting Physician Electrophysiology 05/16/21 Miscellaneous, Not In File 05/23/21 documented as of this encounter
--- OUTSIDE RECORDS SUMMARY | 2024-07-30 20:39 | XMS_ITS | Encounter Summary ---
Author Organization [facility] Medical Group Address [address] [place] [address] Care Team Providers Care Saw Operator Name Role Phone Tao Jeffers MD Primary Care Provider [phone] Victor M Barnes MD Unavailable Zane Lopez MD Unavailable [phone] Miscellaneous, Not In File Unavailable Unava ilable Reason for Visit * Reason Onset Date Comments Hospital Follow Up 06/11/2021 Encounter Details Date Type Department Care Team (Late st Contact Info) Description 06/11/2021 Documentation Arrhythmia Center [address] [facility] [address] [place] [address] Ayla Colon, [facility] Hospital Follow Up Social History Tobacco Use Types Packs/Day Years Used Date Smoking Tobacco: Former Smokeless Tobacco: Never Sex and Gender Information Value Date Recorded Sex Assigned at Not on file Legal Sex Male 12:29 AM NIGHT SHIFT MANAGER Gender Identity Not on file Sexual [...] problems he is to resume his Eliquis. T SHIFT MANAGER * Yuko Lucia - 06/11/2021 10:49 AM CST Spoke with pt appt scheduled. Groin is healing nicely so will restart Eliquis tomorrow. T SHIFT MANAGER documented in this encounter Plan of Treatment Not on file documented as of this encounter Visit Diagnoses Not on filedocumented in this encounter Care Teams Saw Operator Relationship Specialty Start Date End Date Tao Jeffers MD [address] [place] [address] PCP - General 12/18/11 Victor M Barnes MD [address] [place], [place] [id number] Consulting Physician Cardiology 05/16/21 Zane Lopez MD [address] [place], [place] [id number] Consulting Physician Electrophysiology 05/16/21 Miscellaneous, Not In File 05/23/21 documented as of this encounter
--- OUTSIDE RECORDS SUMMARY | 2024-07-30 20:39 | XMS_ITS | Encounter Summary ---
Author Organization [facility] Medical Group Address [address] [facility] [address] [place] [address] Care Team Providers Care Teacher Of The Deaf/Hard Of Hearing Name Role Phone Tao Jeffers MD Primary Care Provider Victor M Barnes MD Unavailable Zane Lopez MD Unavailable [phone] Miscellaneous, Not In File Unavailable Unava ilable Encounter Details Date Type Department Care Team (Late st Contact Info) Description 08/20/2021 Telephone [facility] Medical Group Cardiology [address] [place] [address] Victor M Barnes MD [address] [id number] Social History Tobacco Use Types Packs/Day Years Used Date Smoking Tobacco: Former Smokeless Tobacco: Never Sex and Gender Information Value Date Recorded Sex Assigned at Not on file Legal Sex Male 12:29 AM MEDICAL PRACTICE MANAGER Gender Identity Not on file Sexual Orientation Not on file documented as of this encounter Miscellaneous Notes * Telephone Encounter - Ayla Ballesteros MA - 08/22/2021 4:05 PM CST Med was refilled yesterday CAL PRACTICE MANAGER * Telephone Encounter - Victor M Barnes MD - 08/21/2021 5:14 PM MEDICAL PRACTICE MANAGER That is fine. We will discuss changing to clopidogrel as alternative to Brilinta at next visit. Continue current medications for now and close observation for any bleeding concerns. CAL PRACTICE MANAGER * Telephone Encounter - Ayla Ballesteros MA - 08/20/2021 3:[address] Barnes, Your OV note from last month states pt is taking Brilinta but you have not prescribed it previouslyfor pt. Is it okay to send it in under your name? Thank you. CAL PRACTICE MANAGER * Telephone Encounter - Lena John - 08/20/2021 3:20 PM CST Pt requesting refill for Brilinta 90 mg. Contact: CAL PRACTICE MANAGER documented in this encounter Plan of Treatment Not on file documented as of this encounter Visit Diagnoses Not on filedocumented in this encounter Care Teams Teacher Of The Deaf/Hard Of Hearing Relationship Specialty Start Date End Date Tao Jeffers MD [address] [place] [address] PCP - General 12/18/11 Victor M Barnes MD [address] [place], [place] [address] Consulting Physician Cardiology 05/16/21 Zane Lopez MD [address] [place], [place] [address] Consulting Physician Electrophysiology 05/16/21 Miscellaneous, Not In File 05/23/21 documented as of this encounter
--- OUTSIDE RECORDS SUMMARY | 2024-07-30 20:39 | XMS_ITS | Encounter Summary ---
Author Organization [facility] Medical [facility] Address [address] [facility] [address] [place] [address] Care Team Providers Care Ceramics Technician Name Role Phone Tao Jeffers MD Primary Care Provider [phone] Reason for Visit * Reason Onset Date Comments Atorvastatin 04/30/2021 Encounter Details Date Type Department Care Team (Late st Contact Info) Description 04/30/2021 Telephone [facility] Cardiology [address] [place] [address] Ayla Ballesteros MA Atorvastatin Social History Tobacco Use Types Packs/Day Years Used Date Smoking Tobacco: Former Smokeless Tobacco: Never Sex and Gender Information Value Date Recorded Sex Assigned at Not on file Legal 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 Please sendan 80 mg q.h.s.. * Telephone Encounter - Ayla Ballesteros MA - 04/30/2021 1:53 PM CDT Received a fax from [facility] regarding Atorvastatin 40 mg. Fax states ins will only cover 1 tableta day and rx was written for [address] Barnes, Can a rx for Atvorvastatin 80 mg be sent in instead? Please advise. documented in this encounter Plan of Treatment Not on file documented as of this encounter Visit Diagnoses Not on filedocumented in this encounter Care Teams Ceramics Technician Relationship Specialty Start Date End Date Tao Jeffers MD [address] [place] [address] PCP - General 12/18/11 documented as of this encounter
--- OUTSIDE RECORDS SUMMARY | 2024-07-30 20:39 | XMS_ITS | Encounter Summary ---
Author Organization [facility] Medical [facility] Address [address] [facility] [address] [place] [address] Care Team Providers Care Service Greeter Name Role Phone Tao Jeffers MD Primary Care Provider Victor M Barnes MD Unavailable Zane Lopez MD Unavailable Miscellaneous, Not In File Unavailable Unava ilable Encounter Details Date Type Department Care Team (Late st Contact Info) Description 06/18/[address] [facility] Cardiology [address] [place] [address] Victor M Barnes MD [address] [id number] Social History Tobacco Use Types Packs/Day Years Used Date Smoking Tobacco: Former Smokeless Tobacco: Never Sex and Gender Information Value Date Recorded Sex Assigned at Not on file Legal Sex Male 12:29 AM CLOTH FRAMER Gender Identity Not on file Sexual Orientation Not on file documented as of this encounter Miscellaneous Notes * Telephone Encounter - Yuko Burden RN - 06/18/2021 3:56 PM CLOTH FRAMER Pt called to update me that his [...] months-pt will call with any further concerns. H FRAMER * Telephone Encounter - An Cristina MA - 06/18/2021 3:15 PM CST Pt called wanting to s/w Nurse Yuko, will not give any detail Cb:[phone] RICKY Mancia H FRAMER documented in this encounter Plan of Treatment Not on file documented as of this encounter Visit Diagnoses Not on filedocumented in this encounter Care Teams Service Greeter Relationship Specialty Start Date End Date Tao Jeffers MD [address] [place], [place] [id number] PCP - General 12/18/11 Victor M Barnes MD [address] [place], [place] [id number] Consulting Physician Cardiology 05/16/21 Zane Lopez MD [address] [place], [place] [id number] Consulting Physician Electrophysiology 05/16/21 Miscellaneous, Not In File 05/23/21 documented as of this encounter
--- OUTSIDE RECORDS SUMMARY | 2024-07-30 20:39 | XMS_ITS | Encounter Summary ---
Author Organization [facility] Healthcare Address [address] [place] [address] Care Team Providers Care Farm Tractor Mechanic Name Role Phone Tao Jeffers MD Primary Care Provider [phone] Victor M Barnes MD Unavailable Zane Lopez MD Unavailable [phone] Miscellaneous, Not In File Unavailable Unava ilable Encounter Details Date Type Department Care Team (Latest Contact Info) Description 06/10/2021 9:44 AM INFANTRY OPERATIONS SPECIALIST - 06/10/2021 6:05 PM INFANTRY OPERATIONS SPECIALIST Hospital Encounter [facility] [address] [place] [address] Zane Lopez MD [address] [facility] [address] [place] [address] Paroxysmal atrial fibrillation (CMS/HCC) (HCC) Discharge Disposition: Discharge to home or self care Social History Tobacco Use Types Packs/Day Years Used Date Smoking Tobacco: Former Smokeless Tobacco: Never Sex and Gender Information Value Date Recorded Sex Assigned at Not on file Legal Sex Male 12:29 AM INFANTRY OPERATIONS SPECIALIST Gender Identity Not on file Sexual Orientation Not on file documented as of this encounter Last Filed Vital Signs Vital Sign Reading Time Taken Comments Blood Pressure 119/80 06/10/2021 5:05 PM INFANTRY OPERATIONS SPECIALIST Pulse 80 06/10/2021 5:05 PM INFANTRY OPERATIONS SPECIALIST Temperature 2.4 ??C (36.4 ??F) 06/10/2021 11 :06 AM INFANTRY OPERATIONS SPECIALIST Respiratory Rate 16 06/10/2021 11:0 6 AM INFANTRY OPERATIONS SPECIALIST Oxygen Saturation 95% 06/10/2021 5:05 PM INFANTRY OPERATIONS SPECIALIST Inhaled Oxygen Concentration - - Weight 80.2 kg (176 lb 12.9 oz) 021 11:06 AM INFANTRY OPERATIONS SPECIALIST Height 180.3 cm (5' 11 ) 06/10/2021 11: 06 AM INFANTRY OPERATIONS SPECIALIST Body Mass Index 24.66 06/10/2021 11:06 AM INFANTRY OPERATIONS SPECIALIST documented in this encounter Discharge Instructions * Discharge Instructions* Ashley Osborne RN - 06/10/2021 5:05 PM INFANTRY OPERATIONS SPECIALIST Cardiac Laboratory [address] [place], [place] [address] [facility] Discharge Instructions---Angiogram MEDICATIONS [] Do [...] for any reason without discussing with your utility specialist first. - These medications may make you [...] home diet [] Special diet Instructed by Pattern Perforating Machine Operator ACTIVITY You have been given medications which [...] Patient/Family Signature: Staff Signature/Title: Date and Time: NTRY OPERATIONS SPECIALIST documented in this encounter Medications at Time [...] for : Procedure(s): ATRIOVENTRICULAR (AV) NODE ABLATION 25671 NTRY OPERATIONS SPECIALIST Source Note - Zane Lopez MD - [...] Class 3. CAD status post PCI Plan: SUEDING AND BUFFING 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 ICD and AV node ablation. Will performed in staged fashion Hold [facility] 2 days prior Zane Lopez MD documented in this encounter Plan of Treatment Not on file documented as of this encounter Procedures Procedure Name Priority Date/Time Associated Diagnosis Comments ECG 12-LEAD Routine 06/10/2021 4:24 PM INFANTRY OPERATIONS SPECIALIST PERIPROC PPM EVAL/REPROG [id number] Routine 06/10/2021 3:48 PM INFANTRY OPERATIONS SPECIALIST Paroxysmal atrial fibrillation (CMS/HCC) (HCC) ATRIOVENTRICULAR (AV) NODE ABLATION Routine 06/10/2021 3:48 PM INFANTRY OPERATIONS SPECIALIST Paroxysmal atrial fibrillation (CMS/HCC) (HCC) ECG 12-LEAD STAT 06/10/2021 11:32 AM INFANTRY OPERATIONS SPECIALIST documented in this encounter Results * ECG 12 lead (06/10/2021 4:24 PM INFANTRY OPERATIONS SPECIALIST) 06/10/2021 4:24 PM INFANTRY OPERATIONS SPECIALIST Narrative [facility] - 06/11/2021 7:28 AM INFANTRY OPERATIONS SPECIALIST Vent Rate: 80 bpm RR Interval: 748 msec CO Interval: 242 msec QRS Duration: 151 msec QT Interval: 461 msec QTC Interval: 497 msec P-R-T Interior: 119 - -64 - 105 degrees ELECTRONIC VENTRICULAR PACEMAKER ABNORMAL RHYTHM ECG Electronically Signed By: Pardeep Emesron MD ??[facility] Card us Zane Lopez MD ECG ORDERABLES Final Resul t [facility] * ATRIOVENTRICULAR (AV) NODE ABLATION, PERIPROC PPM EVAL/REPROG [id number] (06/10/2021 3:48 PM INFANTRY OPERATIONS SPECIALIST) Anatomical Region Laterality Modality X-Ray Angiograph y Narrative 06/11/2021 9:57 AM INFANTRY OPERATIONS SPECIALIST Procedure Electrophysiology Study Radiofrequency Catheter Ablation of [...] * ECG 12 lead (06/10/2021 11:32 AM INFANTRY OPERATIONS SPECIALIST) 06/10/2021 11:3 2 AM INFANTRY OPERATIONS SPECIALIST Narrative [facility] - 06/10/2021 11:51 AM INFANTRY OPERATIONS SPECIALIST Vent Rate: 98 bpm RR Interval: 612 msec CO Interval: 0 msec QRS Duration: 104 msec QT Interval: 390 msec QTC Interval: 445 msec P-R-T Interior: 0 - 13 - -37 degrees ATRIAL FIBRILLATION NONSPECIFIC T-WAVE ABNORMALITY ABNORMAL RHYTHM ECG Electronically Signed By: Gennaro Lujan DO [facility] us Zane Lopez MD ECG ORDERABLES Edited Resu lt - Final [facility] documented in this encounter Visit Diagnoses Diagnosis [...] Shoulder PainIndications:Shoulder Pain Given 06/10/2021 4:34 PM INFANTRY OPERATIONS SPECIALIST 650 mg sodium chloride 0.9% flush 0.5-20 [...] Pre-Procedure (CV) New Bag 06/10/2021 2:58 PM INFANTRY OPERATIONS SPECIALIST documented in this encounter Discontinued Medications Medication [...] Recently Administered Medications Times are shown in INFANTRY OPERATIONS SPECIALIST. Scheduled Medication Order 06/08/2021 06/09/2021 06/10/2021 acetaminophen [...] 06/10/2021 documented in this encounter Care Teams Farm Tractor Mechanic Relationship Specialty Start Date End Date Tao Jeffers MD [address] [place] [address] PCP - General 12/18/11 Victor M Barnes MD [address] [place] [id number] Consulting Physician Cardiology 05/16/21 Zane Lopez MD [address] [place] [id number] Consulting Physician Electrophysiology 05/16/21 Miscellaneous, Not In File 05/23/21 documented as of this encounter
--- OUTSIDE RECORDS SUMMARY | 2024-07-30 20:39 | XMS_ITS | Encounter Summary ---
Author Organization [facility] Medical Group Address [address] [place] [address] Care Team Providers Care Police Clerk Name Role Phone Tao Jeffers MD Primary Care Provider [phone] Victor M Barnes MD Unavailable [phone] Zane Lopez MD Unavailable Miscellaneous, Not In File Unavailable Unava ilable Reason for Visit * Reason Comments Atrial Fibrillation Coronary Artery Disease Hypertension overdue one mo f/u Encounter Details Date Type Department Care Team (Late st Contact Info) Description 07/03/2021 1:00 PM SPACE AND STORAGE CLERK Office Visit [facility] Medical [facility] Cardiology [address] [place] [address] Victor M Barnes MD [address] [facility] [address] [place] [address] Coronary artery disease involving [place] coronary artery of [place] heart without angina pectoris (Primary Dx); Chronic [...] on file Legal Sex Male 12:29 AM SPACE AND STORAGE CLERK Gender Identity Not on file Sexual Orientation Not on file documented as of this encounter Last Filed Vital Signs Vital Sign Reading Time Taken Comments Blood Pressure 124/76 07/03/2021 12:57 PM SPACE AND STORAGE CLERK Pulse 70 07/03/2021 12:57 PM SPACE AND STORAGE CLERK Temperature - - Respiratory Rate - - Oxygen Saturation 97% 07/03/2021 12:57 PM SPACE AND STORAGE CLERK Inhaled Oxygen Concentration - - Weight 78 kg (172 lb) 07/03/2021 12:57 PM SPACE AND STORAGE CLERK Height 180.3 cm (5' 11 ) 07/03/2021 12:57 PM SPACE AND STORAGE CLERK Body Mass Index 23.99 07/03/2021 12:57 PM SPACE AND STORAGE CLERK documented in this encounter Progress Notes * Victor M Barnes MD - 07/03/2021 1:00 PM CST Images from the original note were not included. DATE OF VISIT: 07/03/2021 CHIEF COMPLAINT Chief Complaint Patient presents with ??? Atrial Fibrillation ??? Coronary Artery Disease ??? Hypertension overdue one mo f/u ASSESSMENT Diagnoses and all orders for this visit: Coronary artery disease involving [place] coronary artery of [place] heart without angina pectoris (Primary) Chronic HFrEF [...] LDL 53, well controlled goal LDL<70. Continue [id number] qhs therapy and lifestyle modification. 5. Compensated HFrEF NYHA class III. CHF counseling performed. Follow daily weight, less than 2 g daily sodium intake, medication compliance. Call w/ wt gain >3lb in 24 hrs or worsening edema and/or CAMACHO. -With combination of PCI and attempts at maintenance of SR, I would hope to see improvement in EF. -EF 35% by Echo, [facility]. -discussed this at length. Discussed hope [...] required hospitalization and appendectomy. He presented to [facility] on 01/01/2021 under the advice of [...] on amiodarone. ?? 01/18/21 Hospital follow-up with DIGITAL PERFORMANCE ANALYST - Lm Jimenez comes to the office [...] a presyncopal episode: he fell into the [employer] waste bin head first, got himself up [...] and I told him to contact his nps and get a appointment next week. ?? I have personally reviewed EKG, electronic medical record, and bloodwork/lipids. Сергей Barnes MD, [facility] This note is dictated and transcribed using [employer] Direct Software. Dish Maker variancesmay occur. Despite proofreading, typographical errors may occur. E AND STORAGE CLERK documented in this encounter Plan of Treatment Not on file documented as of this encounter Visit Diagnoses Diagnosis Coronary artery disease involving [place] coronary artery of [place] heart without angina pectoris- Primary Chronic HFrEF [...] 09/05/2021 added in this encounter Care Teams Police Clerk Relationship Specialty Start Date End Date Tao Jeffers MD [address] [place], [place] [address] PCP - General 12/18/11 Victor M Barnes MD [address] [place] [address] Consulting Physician Cardiology 05/16/21 Zane Lopez MD [address] [place], [place] [phone] Consulting Physician Electrophysiology 05/16/21 Miscellaneous, Not In File 05/23/21 documented as of this encounter
--- OUTSIDE RECORDS SUMMARY | 2024-07-30 20:39 | XMS_ITS | Encounter Summary ---
Author Organization [facility] Address [address] [place] [address] Care Team Providers Care Mortgage Processing Manager Name Role Phone Tao Jeffers MD Primary Care Provider [phone] Victor M Barnes MD Unavailable [phone] Zane Lopez MD Unavailable [phone] Miscellaneous, Not In File Unavailable Unava ilable Reason for Visit * Cardiology (Routine) - Closed Specialty Diagnoses / Procedures Referred By Contac t Referred To Contact Diagnoses Ischemic cardiomyopathy Procedures DEVICE CHECK - IN OFFICE Zane Lopez MD [address] [place] [address] Phone: tel: fax: [facility] Referral ID Status Reason Start Date Expiration Date Visits Re quested Visits Authorized [id number] Closed 05/24/2021 06/23/2022 1 1 Encounter Details Date Type Department Care Team (Latest Contact Info) Description 05/30/2021 9:00 AM CDT Ancillary Procedure [facility] [address] [facility] [address] [place] [address] Ischemic cardiomyopathy; Automatic implantable cardiac defibrillator in situ Social History Tobacco Use Types Packs/Day Years Used Date Smoking Tobacco: Former Smokeless Tobacco: Never Sex and Gender Information Value Date Recorded Sex Assigned at Not on file 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
--- OUTSIDE RECORDS SUMMARY | 2024-07-30 20:39 | XMS_ITS | Encounter Summary ---
Author Organization [facility] Medical [facility] Address [address] [place] [address] Care Team Providers Care Personal Injury Specialist Name Role Phone Tao Jeffers MD Primary Care Provider [phone] Victor M Barnes MD Unavailable [phone] Zane Lopez MD Unavailable [phone] Miscellaneous, Not In File Unavailable Unava ilable Reason for Visit * Consultation (Routine) - Closed Specialty Diagnoses / Procedures Referred By Contac t Referred To Contact Cardiology Diagnoses Atherosclerosis of [place] coronary artery with other form of angina pectoris, unspecified whether [place] or transplanted heart (HCC) Tao Jeffers MD [address] [place] [address] Phone: tel: fax: [facility] Medical [facility] Cardiology [address] [place] [address] Phone: tel: fax: Referral ID Status Reason Start Date Expiration Date V isits Requested Visits Authorized [id number] Closed Specialty Services Required 09/03/2021 03/02/2022 3 3 Encounter Details Date Type Department Care Team (Latest Contact Info) Description 09/26/2021 9:15 AM MISSILE INSPECTOR Ancillary Procedure [facility] Medical [facility] Cardiology [address] [place] [address] Coronary artery disease involving [place] coronary artery of [place] heart without angina pectoris; Chronic HFrEF (heart [...] on file Legal Sex Male 12:29 AM MISSILE INSPECTOR Gender Identity Not on file Sexual Orientation Not on file documented as of this encounter Plan of Treatment Not on file documented as of this encounter Procedures Procedure Name Priority Date/Time Associated Diagnosis Comments TRANSTHORACIC ECHO (TTE) COMPLETE W DOPPLER/CF WO CONTRAST Routine 09/26/2021 9:57 AM MISSILE INSPECTOR Coronary artery disease involving [place] coronary artery of [place] heart without angina pectoris Chronic HFrEF (heart failure with reduced ejection fraction) (CMS/HCC) (HCC) Ischemic cardiomyopathy Paroxysmal atrial fibrillation (CMS/HCC) (HCC) Biventricular implantable cardioverter-defibri llator (ICD) in situ CAMACHO (dyspnea on exertion) documented in this encounter Results * TRANSTHORACIC ECHO (TTE) COMPLETE W DOPPLER/CF WO CONTRAST (09/26/2021 9:57 AM MISSILE INSPECTOR) Anatomical Region Laterality Modality Ultrasound 09/26/2021 9:08 AM MISSILE INSPECTOR Narrative 09/26/2021 3:08 PM MISSILE INSPECTOR [facility] Medical Group Cardiology [address] [facility] [address], [place] [address] [address] [address] P:[phone] P:[phone] Echocardiographic Report Patient Name: LM JIMENEZ : 1940 Study Date: 09/26/2021 9:08:21 AM Gender: M Tech: Location: [place] Ref.Provider: VICTOR M BARNES Height(Cm): 180 BSA: [...] Findings: Interpretation Site: Exam was interpreted at [facility]. Left Ventricle: Mild concentric left ventricular hypertrophy. [...] Signed By: Сергей Barnes MD 2021-09-26 15:08:18 MISSILE INSPECTOR CC: CC: Procedure Note Victor M Barnes MD - 09/26/2021 [facility] Cardiology [address] [facility] [address], [place] [address] [address] [place] [address] P:[phone] P:[phone] Echocardiographic Report Patient Name: LM JIMENEZPatient ID: [id number] : [id number] Date: 09/26/2021 9:08:21 AM Gender: MAccession #: [id number] Tech: GMLocation: [place] Ref.Provider: VICTOR M BARNESHeight(Cm): 180 BSA: 1.98Weight(Kg): [...] 16.00 - 28.00 ] cc/m2 MV Decel Lpax095 [ 150 - 200 ] msec ACS MM 1.93 cm PV Peak Vel0.52 [ 0.40 - 0.80 ] m/s TR Peak Vel2.96 [ 0.40 - 0.80 ] m/s TR Peak PG 35mmHg RVSP43.00 mmHg E'0.04 E/E' 13 - Findings: Interpretation Site: Exam was interpreted at [facility]. Left Ventricle: Mild concentric left ventricular hypertrophy. [...] Signed By: Сергей Barnes MD 2021-09-26 15:08:18 MISSILE INSPECTOR CC: CC: Victor M Barnes MD CV ECHO PROCEDURES Final Result documented in this encounter Visit Diagnoses Diagnosis Coronary artery disease involving [place] coronary artery of [place] heart without angina pectoris Chronic HFrEF (heart failure with reduced ejection fraction) (CMS/HCC) (HCC) Ischemic cardiomyopathy Other specified forms of chronic ischemic heart disease Paroxysmal atrial fibrillation (CMS/HCC) (HCC) Atrial fibrillation 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 CAMACHO (dyspnea on exertion) Other dyspnea and respiratory abnormality documented in this encounter Care Teams Personal Injury Specialist Relationship Specialty Start Date End Date Tao Jeffers MD [address] [place] [address] PCP - General 12/18/11 Victor M Barnes MD [address] [place] [address] Consulting Physician Cardiology 05/16/21 Zane Lopez MD [address] [place] [address] Consulting Physician Electrophysiology 05/16/21 Miscellaneous, Not In File 05/23/21 documented as of this encounter
--- OUTSIDE RECORDS SUMMARY | 2024-07-30 20:39 | XMS_ITS | Encounter Summary ---
Author Organization [facility] Medical [facility] Address [address] [place] [address] Care Team Providers Care Endocrinology Teacher Name Role Phone Tao Jeffers MD Primary Care Provider [phone] Reason for Visit * Reason Comments Follow-up trouble walking and does not feel any better after having stents placed. Atrial Fibrillation Shortness of Breath Cough Encounter Details Date Type Department Care Team ([facility] st Contact Info) Description 05/01/2021 1:15 PM CDT Office Visit [facility] Medical [facility] Cardiology [address] [place] [address] Victor M Barnes MD [address] [place] [address] Paroxysmal atrial fibrillation (CMS/HCC) (HCC) (Primary Dx); Coronary artery disease involving [place] coronary artery of [place] heart without angina pectoris; Ischemic cardiomyopathy; CAMACHO (dyspnea on exertion); Mixed dyslipidemia; HTN (hypertension), benign; Chronic anticoagulation; S/P coronary artery stent placement; At risk for amiodarone toxicity with alf use Social History Tobacco Use Types Packs/Day Years Used Date Smoking Tobacco: Former Smokeless Tobacco: Never Sex and Gender Information Value Date Recorded Sex Assigned at Not on file Legal 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 Continue [id number] qhs therapy and lifestyle modification. 5. Compensated HFrEF NYHA class III. CHF counseling performed. Follow daily weight, less than 2 g daily sodium intake, medication compliance. Call w/ wt gain >3lb in 24 hrs or worsening edema and/or CAMACHO. -With combination of PCI and attempts at maintenance of SR, I would hope to see improvement in EF. -EF 35% by Echo, [facility]. 6. Twelve lead EKG today personally reviewed [...] required hospitalization and appendectomy. He presented to [facility] on 01/01/2021 under the advice of [...] on amiodarone. ?? 01/18/21 Hospital follow-up with [employer] DEVELOPER - Lm Jimenez comes to the office [...] medical record, and bloodwork/lipids. Сергей Barnes MD, [facility] This note is dictated and transcribed using [employer] Direct Software. Pack Out Operator variancesmay occur. Despite proofreading, typographical errors may [...] Primary Atrial fibrillation Coronary artery disease involving [place] coronary artery of [place] heart without angina pectoris Ischemic cardiomyopathy Other specified forms of chronic ischemic heart disease CAMACHO (dyspnea on exertion) Other dyspnea and respiratory abnormality Mixed dyslipidemia HTN (hypertension), benign Essential hypertension, benign Chronic anticoagulation Encounter for long-term (current) use of anticoagulants S/P coronary artery stent placement Postsurgical percutaneous transluminal coronary angioplasty status At risk for amiodarone toxicity with alf use documented in this encounter Discontinued Medications [...] 05/01/2021 added in this encounter Care Teams Endocrinology Teacher Relationship Specialty Start Date End Date Tao Jeffers MD [address] [place] [address] PCP - General 12/18/11 documented as of this encounter
--- OUTSIDE RECORDS SUMMARY | 2024-07-30 20:39 | XMS_ITS | Encounter Summary ---
Author Organization [facility] Medical Group Address [address] [place] [address] Care Team Providers Care Sow Farm Manager Name Role Phone Tao Jeffers MD Primary Care Provider [phone] Victor M Barnes MD Unavailable [phone] Zane Lopez MD Unavailable Miscellaneous, Not In File Unavailable Unava ilable Reason for Visit * Cardiology (Routine) - Closed Specialty Diagnoses / Procedures Referred By Contac t Referred To Contact Diagnoses Ischemic cardiomyopathy Procedures DEVICE CHECK - REMOTE Zane Lopez MD [address] [place] [address] Phone: tel: fax: [facility] Medical Group Referral ID Status Reason Start Date Expiration Date Visits Re quested Visits Authorized [id number] Closed 05/24/2021 06/23/2022 1 1 Encounter Details Date Type Department Care Team (Latest Contact Info) Description 11/25/2021 12:30 PM CDT Ancillary Procedure Arrhythmia Center [address], [place] [address] Ischemic cardiomyopathy; Biventricular implantable cardioverter-defibr illator (ICD) in situ Social History Tobacco Use Types Packs/Day Years Used Date Smoking Tobacco: Former Smokeless Tobacco: Never Sex and Gender Information Value Date Recorded Sex Assigned at Not on file Legal 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
--- OUTSIDE RECORDS SUMMARY | 2024-07-30 20:39 | XMS_ITS | Encounter Summary ---
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 Chronic HFrEF (heart failure with reduced ejection fraction) (CMS/HCC) (HCC) Ischemic cardiomyopathy Paroxysmal atrial fibrillation (CMS/HCC) (HCC) 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 CAMACHO (dyspnea on exertion) Procedures Transthoracic Echo Complete W Doppler/CF Victor M Barnes MD [address] [place] [address] Phone: tel: fax: External Order Referral ID Status Reason Start Date Expiration Date Visits Re quested Visits Authorized [id number] Closed 09/05/2021 10/05/2022 1 1 HYSICAL E LOGGER Reason for Visit * Reason Comments Follow-up 2 mo f/u Coronary Artery Disease Atrial Fibrillation * Consultation (Routine) - Closed Specialty Diagnoses / Procedures Referred By Contac t Referred To Contact Cardiology Diagnoses Atherosclerosis of [place] coronary artery with other form of angina pectoris, unspecified whether mechoopda or transplanted heart (HCC) Tao Jeffers MD [address] [place] [address] Phone: tel: fax: [facility] Medical [facility] Cardiology [address] [place] [address] Phone: tel: fax: Referral ID Status Reason Start Date Expiration Date V isits Requested Visits Authorized [id number] Closed Specialty Services Required 09/03/2021 03/02/2022 3 3 Encounter Details Date Type Department Care Team (Late st Contact Info) Description 09/05/2021 9:15 AM GEOPHYSICAL E LOGGER Office Visit [facility] Medical [facility] Cardiology [address] [place] [address] Victor M Barnes MD [address] [facility] [place] [address] Coronary artery disease involving [place]cho[place]da coronary artery of [place]cho[place] heart without angina pectoris (Primary Dx); Chronic HFrEF (heart failure with reduced ejection fraction) (CMS/HCC) ([facility]); Ischemic cardiomyopathy; Paroxysmal atrial fibrillation (CMS/HCC) ([facility]); HTN (hypertension), benign; CAMACHO (dyspnea on exertion); S/P AV (atrioventricular) inocente ablation; Biventricular implantable cardioverter-defibril lator (ICD) in situ; Mixed dyslipidemia; Chronic anticoagulation; S/P coronary artery stent placement; Atherosclerosis of [place] coronary artery with other form of angina pectoris, unspecified whether [place] or transplanted heart ([facility]) Social History Tobacco Use Types Packs/Day Years Used Date Smoking Tobacco: Former Smokeless Tobacco: Never Sex and Gender Information Value Date Recorded Sex Assigned at Not on file Legal Sex Male 12:29 AM GEOPHYSICAL E LOGGER Gender Identity Not on file Sexual Orientation Not on file documented as of this encounter Last Filed Vital Signs Vital Sign Reading Time Taken Comments Blood Pressure 130/68 09/05/2021 9:28 AM GEOPHYSICAL E LOGGER Pulse 68 09/05/2021 9:28 AM GEOPHYSICAL E LOGGER Temperature - - Respiratory Rate - - Oxygen Saturation 98% 09/05/2021 9:28 AM GEOPHYSICAL E LOGGER Inhaled Oxygen Concentration - - Weight 78 kg (172 lb) 09/05/2021 9:28 AM GEOPHYSICAL E LOGGER Height 180.3 cm (5' 11 ) 09/05/2021 9:28 AM GEOPHYSICAL E LOGGER Body Mass Index 23.99 09/05/2021 9:28 AM GEOPHYSICAL E LOGGER documented in this encounter Progress Notes * Victor M Barnes MD - 09/05/2021 9:15 AM CST Images from the original note were not included. DATE OF VISIT: 09/05/2021 CHIEF COMPLAINT Chief Complaint Patient presents with ??? Follow-up 2 mo f/u ??? Coronary Artery Disease ??? Atrial Fibrillation ASSESSMENT Diagnoses and all orders for this visit: Coronary artery disease involving [place] coronary artery of [place] heart without angina pectoris (Primary) - Transthoracic Echo Complete W Doppler/CF; Future Chronic HFrEF (heart failure with reduced ejection fraction) (CMS/HCC) ([facility]) - Transthoracic Echo Complete W Doppler/CF; Future Ischemic cardiomyopathy - Transthoracic Echo Complete W Doppler/CF; Future Paroxysmal atrial fibrillation (CMS/HCC) ([facility]) - Transthoracic Echo Complete W Doppler/CF; Future [...] improvement in EF. -EF 35% by Echo, [facility]. -discussed this at length. Discussed hope his EF will improve as well as quality of life and improved activity tolerance. He admits he is feeling notably improved but not quite to where he would like. Continue Lasix 20 mg daily. Continue routine ICD interrogations as scheduled. Follow-up with [facility] ophysiology as scheduled. -Repeat 2D echocardiogram to [...] required hospitalization and appendectomy. [facility]21 under the advice of [...] on amiodarone. ?? 01/18/21 Hospital follow-up with KNAPSACK SPRAYER - Lm Jimenez comes to the office [...] a presyncopal episode: he fell into the [employer] waste bin head first, got himself up [...] and I told him to contact his heat pump installer and get a appointment next week. ?? 08/30/21 Interpretation Summary This patient received a Ji BiV ICD. They had a routine [employer] remote transmission on 08/26/2021. ?? Device implant [...] medical record, and bloodwork/lipids. Сергей Barnes MD, [facility] This note is dictated and transcribed using [employer] Direct Software. Technical Services Librarian variancesmay occur. Despite proofreading, typographical errors may occur. HYSICAL E LOGGER documented in this encounter Plan of Treatment Not on file documented as of this encounter Results * TRANSTHORACIC ECHO (TTE) COMPLETE W DOPPLER/CF WO CONTRAST (09/26/2021 9:57 AM GEOPHYSICAL E LOGGER) Anatomical Region Laterality Modality Ultrasound 09/26/2021 9:08 AM GEOPHYSICAL E LOGGER Narrative 09/26/2021 3:08 PM GEOPHYSICAL E LOGGER [facility] Medical Group Cardiology [address] [id number] [address], [place] [address] P:[phone] P:[phone] Echocardiographic Report Patient Name: LM JIMENEZ : 13 Study Date: 09/26/2021 9:08:21 AM Gender: M Tech: Location: [place] Ref.Provider: VICTOR M BARNES Height(Cm): 180 BSA: [...] Findings: Interpretation Site: Exam was interpreted at [facility]. Left Ventricle: Mild concentric left ventricular hypertrophy. [...] Signed By: Сергей Barnes MD 2021-09-26 15:08:18 GEOPHYSICAL E LOGGER CC: CC: Procedure Note Victor M Barnes MD - 09/26/2021 [facility] Medical Group Cardiology [address] [facility] [address] [address] [address] [place], [place] [address] P:[phone] P:[phone] Echocardiographic Report Patient Name: LM JIMENEZPatient ID: [id number] : [id number] Date: 09/26/2021 9:08:21 AM Gender: MAccession #: [id number] Tech: GMLocation: [place] Ref.Provider: VICTOR M BARNESHeight(Cm): 180 BSA: 1.98Weight(Kg): [...] 16.00 - 28.00 ] cc/m2 MV Decel Vryv862 [ 150 - 200 ] msec ACS MM 1.93 cm PV Peak Vel0.52 [ 0.40 - 0.80 ] m/s TR Peak Vel2.96 [ 0.40 - 0.80 ] m/s TR Peak PG 35mmHg RVSP43.00 mmHg E'0.04 E/E' 13 - Findings: Interpretation Site: Exam was interpreted at [facility]. Left Ventricle: Mild concentric left ventricular hypertrophy. [...] Signed By: Сергей Barnes MD 2021-09-26 15:08:18 GEOPHYSICAL E LOGGER CC: CC: Victor M Barnes MD CV ECHO PROCEDURES Final Result documented in this encounter Visit Diagnoses Diagnosis Coronary artery disease involving [place] coronary artery of [place]choop[place] heart without angina pectoris- Primary Chronic HFrEF (heart failure with reduced ejection fraction) (CMS/HCC) ([facility]) Ischemic cardiomyopathy Other specified forms of chronic [...] percutaneous transluminal coronary angioplasty status Atherosclerosis of [place]cho[place] coronary artery with other form of angina pectoris, unspecified whether [place] or transplanted heart (HCC) Coronary artery disease involving [place]cho[place] coronary artery of mechoopda heart without angina pectoris Chronic HFrEF (heart [...] 09/05/2021 documented in this encounter Care Teams Tree Thinner Relationship Specialty Start Date End Date Tao Jeffers MD [address] [place], [place] [address] PCP - General 12/18/11 Victor M Barnes MD [address] [place] [address] Consulting Physician Cardiology 05/16/21 Zane Lopez MD [address] [place] [address] Consulting Physician Electrophysiology 05/16/21 Miscellaneous, Not In File 05/23/21 documented as of this encounter
--- OUTSIDE RECORDS SUMMARY | 2024-07-30 20:39 | XMS_ITS | Encounter Summary ---
Author Organization [facility] Medical Group Address [address] [place] [address] Care Team Providers Care Public Stenographer Name Role Phone Tao Jeffers MD Primary Care Provider [phone] Victor M Barnes MD Unavailable [phone] Zane Lopez MD Unavailable Miscellaneous, Not In File Unavailable Unava ilable Encounter Details Date Type Department Care Team (Late st Contact Info) Description 10/02/[address] [facility] Medical Group Cardiology [address] [place] [address] Victor M Barnes MD [address] [id number] Social History Tobacco Use Types Packs/Day Years Used Date Smoking Tobacco: Former Smokeless Tobacco: Never Sex and Gender Information Value Date Recorded Sex Assigned at Not on file Legal Sex Male 12:29 AM PLANT ACCOUNTANT Gender Identity Not on file Sexual Orientation Not on file documented as of this encounter Miscellaneous Notes * Telephone Encounter - Elvi Burden RN - 10/02/2021 10:40 AM PLANT ACCOUNTANT Spoke with pt and reviewed echo results with pt-he verbalized understanding and appreciated the callback. T ACCOUNTANT * Telephone Encounter - An Cristina MA - 10/02/2021 9:55 AM CST Pt calling to s/w nurse elvi(stated this is their usual procedure) Cb:[phone] RICKY Mancia T ACCOUNTANT documented in this encounter Plan of Treatment Not on file documented as of this encounter Visit Diagnoses Not on filedocumented in this encounter Care Teams Public Stenographer Relationship Specialty Start Date End Date Tao Jeffers MD [address] [place] [address] PCP - General 12/18/11 Victor M Barnes MD [address] [place] [address] Consulting Physician Cardiology 05/16/21 Zane Lopez MD [address] [place] [address] Consulting Physician Electrophysiology 05/16/21 Miscellaneous, Not In File 05/23/21 documented as of this encounter
--- OUTSIDE RECORDS SUMMARY | 2024-07-30 20:39 | XMS_ITS | Encounter Summary ---
Author Organization [facility] Healthcare Address [address] [place] [address] Care Team Providers Care Supervisor Ride Assembly Name Role Phone Tao Jeffers MD Primary Care Provider [phone] Victor M Barnes MD Unavailable Zane Lopez MD Unavailable Miscellaneous, Not In File Unavailable Unava ilable Encounter Details Date Type Department Care Team (Late st Contact Info) Description 06/10/2021 2:58 PM GRADES 1 THRU 6 HOME TEACHER Anesthesia Event [facility] [address] [place] [address] Maxine Jeong MD [address] [place] [address] Aga Frances CRNA [address] [place], [place] [id number] Anesthesia Record Procedure Summary Procedure Name Responsible Anesthesiologist Anesthesia Start Time Anesthesia Stop Time ATRIOVENTRICULAR (AV) NODE ABLATION 09091 Maxine Jeong MD 06/10/21 1458 06/10/21 1610 [...] on file Legal Sex Male 12:29 AM GRADES 1 THRU 6 HOME TEACHER Gender Identity Not on file Sexual Orientation Not on file documented as of this encounter OR Notes * Anesthesia Postprocedure Evaluation - Maxine Jeong MD - 06/11/2021 7:14 AM CST Patient: Lm Jimenez Procedure Summary Date: 06/10/21 Room / Location: [facility] CATH/EP LAB C / [facility] CARDIAC FREIGHT HANDLER Anesthesia Start: 1458 Anesthesia Stop: 1610 Procedures: ATRIOVENTRICULAR (AV) NODE ABLATION 81541 (N/A ) PERIPROC PPM EVAL/REPROG 99387 (N/A ) Diagnosis: Paroxysmal atrial fibrillation (CMS/HCC) [...] normothermic Nausea/Vomiting status: none No complications documented. ES 1 THRU 6 HOME TEACHER * Anesthesia Preprocedure Evaluation - Pardeep Farnsworth [...] and appendectomy. Procedure(s): ATRIOVENTRICULAR (AV) NODE ABLATION 25796 Pre-Op Diagnosis Codes: * Paroxysmal atrial fibrillation (CMS/HCC) (HCC) [I48.0] ALLGOOB COVID-19 Vaccine (Pfizer SARS-CoV-2 Vaccination) 10/23/2020, 10/02/2020 [facility] 05/20/21 Last dose Eliquis 10 AM, [...] Clinical correlation advised. Recommend follow up with supervisor firearms. Negative EKG portion of stress test. Electronically Signed By: Сергей Barnes MD 2021-03-06 17:07:09 CDT Patient Active Problem List Diagnosis ??? Paroxysmal atrial fibrillation (CMS/HCC) (HCC) ??? Coronary artery disease involving [place] coronary artery of [place] heart without angina pectoris ??? Cardiomyopathy (HCC) ??? At risk for amiodarone toxicity with skilled nursing use ??? Mixed dyslipidemia ??? HTN (hypertension), [...] Medication protocol when under care of a CRAWLER TRACTOR OPERATOR Planned anesthesia: General/TIVA Induction: Induction: intravenous. Postoperative [...] and agree to proceed. All questions answered. ES 1 THRU 6 HOME TEACHER documented in this encounter Plan of Treatment Not on file documented as of this encounter Visit Diagnoses Not on filedocumented in this encounter Administered Medications Inactive Administered Medications - up to 3 most recent administrations Medication Order MAR Action Action Date Dose Rate Site dexmedeTOMIDine (PRECEDEX) injection intravenous, As needed, Starting on Thu06/10/21 at 1520, Anesthesia Intra-op Given 06/10/2021 3:29 PM GRADES 1 THRU 6 HOME TEACHER 4 mcg Given 06/10/2021 3:20 PM GRADES 1 THRU 6 HOME TEACHER 4 mcg phenylephrine (PAMELA-SYNEPHRINE) 25,000 mcg in sodium chloride 0.9% 250 mL (100 mcg/mL) infusion intravenous, Continuous PRN, Starting on Thu06/10/21 at 1541, Anesthesia Intra-op New Bag 06/10/2021 3:41 PM GRADES 1 THRU 6 HOME TEACHER 0.2 mcg/kg/min 9.624 mL/hr propofoL (DIPRIVAN) 10 mg/mL IV intravenous, Continuous PRN, Starting on Thu06/10/21 at 1505, Anesthesia Intra-op New Bag 06/10/2021 3:05 PM GRADES 1 THRU 6 HOME TEACHER 35 mcg/kg/min 16.842 mL/hr propofoL (DIPRIVAN) 10 mg/mL IV intravenous, As needed, Starting on Thu06/10/21 at 1505, Anesthesia Intra-op Given 06/10/2021 3:09 PM GRADES 1 THRU 6 HOME TEACHER 30 mg Given 06/10/2021 3:05 PM GRADES 1 THRU 6 HOME TEACHER 30 mg sodium chloride 0.9% infusion 50 mL/hr, intravenous, Continuous, Starting on Thu06/10/21 at 1130, Pre-Procedure (CV) New Bag 06/10/2021 2:58 PM GRADES 1 THRU 6 HOME TEACHER documented in this encounter Care Teams Supervisor Ride Assembly Relationship Specialty Start Date End Date Tao Jeffers MD [address] [place], [place] [address] PCP - General 12/18/11 Victor M Barnes MD [address] [place], [place] [address] Consulting Physician Cardiology 05/16/21 Zane Lopez MD [address] [place] [address] Consulting Physician Electrophysiology 05/16/21 Miscellaneous, Not In File 05/23/21 documented as of this encounter
--- OUTSIDE RECORDS SUMMARY | 2024-07-30 20:39 | XMS_ITS | Encounter Summary ---
Author Organization [facility] Medical Group Address [address] [place] [address] Care Team Providers Care Tax Services Manager Name Role Phone Tao Jeffers MD Primary Care Provider Victor M Barnes MD Unavailable Zane Lopez MD Unavailable Encounter Details Date Type Department Care Team (Late st Contact Info) Description 05/17/2021 Telephone Arrhythmia Center [address] [place] [address] Zane Lopez MD [address] [facility] [address] [place] [address] Social History Tobacco Use Types Packs/Day Years Used Date Smoking Tobacco: Former Smokeless Tobacco: Never Sex and Gender Information Value Date Recorded Sex Assigned at Not on file Legal Sex Male 12:29 AM WEAPONS DESIGNER Gender Identity Not on file Sexual Orientation Not on file documented as of this encounter Miscellaneous Notes * Telephone Encounter - Melissa Adams - 05/17/2021 11:27 AM CDT Patient called with concerns about going to [facility] for his preop lab work and COVID testing. He said he has called them to find out if and when he can get a covid test there but has been unable to get any answers. I confirmed that he had a copy of his lab orders, which he did have the blood work orders. I told him the lab at [facility] will definitely do the blood work without question. I told him I was not sure about the covid testing policies but someone from the lab should be able to answer his questions. I told him to call me if he had any problems. Patient verbalized understanding. I went on [facility]'s website and found the instructions for the covid testing. I faxed and order tothe number listed and requested they call the patient to schedule. documented in this encounter Plan of Treatment Not on file documented as of this encounter Visit Diagnoses Not on filedocumented in this encounter Care Teams Tax Services Manager Relationship Specialty Start Date End Date Tao Jeffers MD [address] [place], [place] [address] PCP - General 12/18/11 Victor M Barnes MD [address] [place] [address] Consulting Physician Cardiology 05/16/21 Zane Lopez MD [address] [place] [address] Consulting Physician Electrophysiology 05/16/21 documented as of this encounter
--- OUTSIDE RECORDS SUMMARY | 2024-07-30 20:39 | XMS_ITS | Encounter Summary ---
Author Organization [facility] Address [address] [place] [address] Care Team Providers Care Director Of Recruiting Name Role Phone Tao Jeffers MD Primary Care Provider Victor M Barnes MD Unavailable [phone] Zane Lopez MD Unavailable Miscellaneous, Not In File Unavailable Unava ilable Encounter Details Date Type Department Care Team (Late st Contact Info) Description 09/11/2021 Telephone [facility] Cardiology [address] [place] [address] Victor M Barnes MD [address] [id number] Social History Tobacco Use Types Packs/Day Years Used Date Smoking Tobacco: Former Smokeless Tobacco: Never Sex and Gender Information Value Date Recorded Sex Assigned at Not on file Legal Sex Male 12:29 AM FLIGHT ATTENDANT/INFLIGHT MANAGER Gender Identity Not on file Sexual Orientation Not on file documented as of this encounter Miscellaneous Notes * Telephone Encounter - Yuko Burden RN - 09/11/2021 2:16 PM FLIGHT ATTENDANT/INFLIGHT MANAGER Spoke with pt-he asked if he was still able use his riding range manager-his cousin told him it could interfere with his pacemaker. Spoke with Sonia CRUZ and she said as long as pt is 12 inches away from the engine when its running he should be fine-informed pt of this information and he verbalized understanding. HT ATTENDANT/INFLIGHT MANAGER * Telephone Encounter - An Cristina MA - 09/11/2021 11:34 AM CST Pt calling requesting that nurse Yuko gives him a call today after 2pm, pt did not want to go in to details, stated she knows what the call is in regards to. Cb:[phone] RICKY Mancia HT ATTENDANT/INFLIGHT MANAGER documented in this encounter Plan of Treatment Not on file documented as of this encounter Visit Diagnoses Not on filedocumented in this encounter Care Teams Director Of Recruiting Relationship Specialty Start Date End Date Tao Jeffers MD [address] [place], [place] [address] PCP - General 12/18/11 Victor M Barnes MD [address] [place], [place] [phone] Consulting Physician Cardiology 05/16/21 Zane Lopez MD [address] [place], [place] [address] Consulting Physician Electrophysiology 05/16/21 Miscellaneous, Not In File 05/23/21 documented as of this encounter
--- OUTSIDE RECORDS SUMMARY | 2024-07-30 20:39 | XMS_ITS | Encounter Summary ---
Author Organization [facility] Address [address] [place] [address] Care Team Providers Care Specialties Operator Name Role Phone Tao Jeffers MD Primary Care Provider Victor M Barnes MD Unavailable [phone] Zane Lopez MD Unavailable Miscellaneous, Not In File Unavailable Unava ilable Encounter Details Date Type Department Care Team (Late st Contact Info) Description 04/29/2021 Telephone [facility] Cardiology [address] [place] [address] Victor M Barnes MD [address] [place] [address] Social History Tobacco Use Types Packs/Day Years Used Date Smoking Tobacco: Former Smokeless Tobacco: Never Sex and Gender Information Value Date Recorded Sex Assigned at Not on file Legal Sex Male 12:29 AM MENTAL HEALTH PROGRAM SPECIALIST Gender Identity Not on file Sexual [...] Pt requesting call from ANTHONY Huntley.Thank you Contact:[phone] documented in this encounter Plan of Treatment Not on file documented as of this encounter Visit Diagnoses Not on filedocumented in this encounter Care Teams Specialties Operator Relationship Specialty Start Date End Date Tao Jeffers MD [address] [place], [place] [phone] PCP - General 12/18/11 Victor M Barnes MD [address] [place] [id number] Consulting Physician Cardiology 05/16/21 Zane Lopez MD [address] [place] [phone] Consulting Physician Electrophysiology 05/16/21 Miscellaneous, Not In File 05/23/21 documented as of this encounter
--- OUTSIDE RECORDS SUMMARY | 2024-07-30 20:39 | XMS_ITS | Encounter Summary ---
Author Organization [facility] Address [address] [place] [address] Care Team Providers Care Project Management Director Name Role Phone Tao Jeffers MD Primary Care Provider Victor M Barnes MD Unavailable [phone] Zane Lopez MD Unavailable [phone] Miscellaneous, Not In File Unavailable Unava ilable Encounter Details Date Type Department Care Team (Late st Contact Info) Description 05/08/2021 Telephone [facility] Cardiology [address] [place] [address] Victor M Barnes MD [address] [id number] Social History Tobacco Use Types Packs/Day Years Used Date Smoking Tobacco: Former Smokeless Tobacco: Never Sex and Gender Information Value Date Recorded Sex Assigned at Not on file Legal Sex Male 12:29 AM DIALYSIS PATIENT CARE TECHNICIAN Gender Identity Not on file Sexual [...] nurse Huntley,no details given at this time. Contact:[phone] documented in this encounter Plan of Treatment Not on file documented as of this encounter Visit Diagnoses Not on filedocumented in this encounter Care Teams Project Management Director Relationship Specialty Start Date End Date Tao Jeffers MD [address] [place], [place] [phone] PCP - General 12/18/11 Victor M Barnes MD [address] [place], [place] [phone] Consulting Physician Cardiology 05/16/21 Zane Lopez MD [address] [place], [place] [phone] Consulting Physician Electrophysiology 05/16/21 Miscellaneous, Not In File 05/23/21 documented as of this encounter
--- OUTSIDE RECORDS SUMMARY | 2024-07-30 20:39 | XMS_ITS | Encounter Summary ---
Author Organization [facility] Address [address] [place] [address] Care Team Providers Care Sales Representative Education Courses Name Role Phone Tao Jeffers MD Primary Care Provider Victor M Barnes MD Unavailable [phone] Zane Lopez MD Unavailable [phone] Miscellaneous, Not In File Unavailable Unava ilable Encounter Details Date Type Department Care Team (Late st Contact Info) Description 06/06/2021 Telephone [facility] Cardiology [address] [place] [address] Victor M Barnes MD [address] [id number] Social History Tobacco Use Types Packs/Day Years Used Date Smoking Tobacco: Former Smokeless Tobacco: Never Sex and Gender Information Value Date Recorded Sex Assigned at Not on file Legal Sex Male 12:29 AM TRACTOR DISTRIBUTOR Gender Identity Not on file Sexual Orientation [...] Yuko. Will send to Yuko as FYI TOR DISTRIBUTOR * Telephone Encounter - Stephanie Gage Dasilva - 06/06/2021 11:53 AM CST Pt requesting a call from nurse Huntley.No details given at this time.Thank you Contact:[phone] TOR DISTRIBUTOR documented in this encounter Plan of Treatment Not on file documented as of this encounter Visit Diagnoses Not on filedocumented in this encounter Care Teams Sales Representative Education Courses Relationship Specialty Start Date End Date Tao Jeffers MD [address] [place], [place] [address] PCP - General 12/18/11 Victor M Barnes MD [address] [place] [phone] Consulting Physician Cardiology 05/16/21 Zane Lopez MD [address] [place], [place] [phone] Consulting Physician Electrophysiology 05/16/21 Miscellaneous, Not In File 05/23/21 documented as of this encounter
--- OUTSIDE RECORDS SUMMARY | 2024-07-30 20:39 | XMS_ITS | Encounter Summary ---
Author Organization [facility] Address [address] [place] [address] Care Team Providers Care Health Associate Name Role Phone Tao Jeffers MD Primary Care Provider [phone] Victor M Barnes MD Unavailable [phone] Zane Lopez MD Unavailable [phone] Miscellaneous, Not In File Unavailable Unava ilable Reason for Visit * Cardiology (Routine) - Closed Specialty Diagnoses / Procedures Referred By Contac t Referred To Contact Diagnoses Ischemic cardiomyopathy Procedures DEVICE CHECK - REMOTE Zane Lopez MD [address] [place] [address] Phone: tel: fax: [facility] Referral ID Status Reason Start Date Expiration Date Visits Re quested Visits Authorized [id number] Closed 05/24/2021 06/23/2022 1 1 Encounter Details Date Type Department Care Team (Latest Contact Info) Description 08/26/2021 8:00 AM MILLWRIGHT SUPERVISOR Ancillary Procedure [facility] [address] [place] [address] Ischemic cardiomyopathy; Biventricular implantable cardioverter-defibr illator (ICD) in situ Social History Tobacco Use Types Packs/Day Years Used Date Smoking Tobacco: Former Smokeless Tobacco: Never Sex and Gender Information Value Date Recorded Sex Assigned at Not on file Legal Sex Male 12:29 AM MILLWRIGHT SUPERVISOR Gender Identity Not on file Sexual Orientation Not on file documented as of this encounter Plan of Treatment Not on file documented as of this encounter Procedures Procedure Name Priority Date/Time Associated Diagnosis Comments DEVICE CHECK - REMOTE Routine 08/26/2021 11:14 AM MILLWRIGHT SUPERVISOR Ischemic cardiomyopathy documented in this encounter Results * DEVICE CHECK - REMOTE (08/26/2021 11:14 AM MILLWRIGHT SUPERVISOR) Anatomical Region Laterality Modality Other Narrative 08/30/2021 1:58 PM MILLWRIGHT SUPERVISOR This patient received a Ji BiV ICD. [...] situ documented in this encounter Care Teams Health Associate Relationship Specialty Start Date End Date Tao Jeffers MD [address] [place] [address] PCP - General 12/18/11 Victor M Barnes MD [address] [place] [address] Consulting Physician Cardiology 05/16/21 Zane Lopez MD [address] [place] [address] Consulting Physician Electrophysiology 05/16/21 Miscellaneous, Not In File 05/23/21 documented as of this encounter
--- OUTSIDE RECORDS SUMMARY | 2024-07-30 20:39 | XMS_ITS | Encounter Summary ---
Author Organization [facility] Address [address] [place] [address] Care Team Providers Care Wildlife Photographer Name Role Phone Tao Jeffers MD Primary Care Provider [phone] Encounter Details Date Type Department Care Team (Late st Contact Info) Description 05/10/2021 Orders Only [facility] Cardiology [address] [place] [address] Victor M Barnes MD [address] [facility] [address] [place] [address] Social History Tobacco Use Types Packs/Day Years Used Date Smoking Tobacco: Former Smokeless Tobacco: Never Sex and Gender Information Value Date Recorded Sex Assigned at Not on file Legal Sex Male 12:29 AM BIOINFORMATICIST Gender Identity Not on file Sexual Orientation [...] on filedocumented in this encounter Care Teams Wildlife Photographer Relationship Specialty Start Date End Date Tao Jeffers MD [address] [place] [address] PCP - General 12/18/11 documented as of this encounter
--- OUTSIDE RECORDS SUMMARY | 2024-07-30 20:39 | XMS_ITS | Encounter Summary ---
Author Organization [facility] Address [address] [place] [address] Care Team Providers Care Cloth Colorer Name Role Phone Tao Jeffers MD Primary Care Provider [phone] Victor M aBrnes MD Unavailable [phone] Zane Lopez MD Unavailable [phone] Miscellaneous, Not In File Unavailable Unava ilable Reason for Visit * Cardiology (Routine) - Closed Specialty Diagnoses / Procedures Referred By Contac t Referred To Contact Diagnoses Ischemic cardiomyopathy Procedures DEVICE CHECK - REMOTE Zane Lopez MD [address] [place] [address] Phone: tel: fax: [facility] Referral ID Status Reason Start Date Expiration Date Visits Re quested Visits Authorized [id number] Closed 05/24/2021 06/23/2022 1 1 Encounter Details Date Type Department Care Team (Latest Contact Info) Description 03/03/2022 8:05 AM CDT Ancillary Procedure [facility] [address] [address] Ischemic cardiomyopathy; Biventricular implantable cardioverter-defibr illator (ICD) in situ Social History Tobacco Use Types Packs/Day Years Used Date Smoking Tobacco: Former Smokeless Tobacco: Never Sex and Gender Information Value Date Recorded Sex Assigned at Not on file Legal Sex Male 12:29 AM EPIC BEACON ANALYST Gender Identity Not on file Sexual [...] situ documented in this encounter Care Teams Cloth Colorer Relationship Specialty Start Date End Date Tao Jeffers MD [address] [place] [address] PCP - General 12/18/11 Victor M Barnes MD [facility] [place] [address] Consulting Physician Cardiology 05/16/21 Zane Lopez MD [address] [place], [place] [phone] Consulting Physician Electrophysiology 05/16/21 Miscellaneous, Not In File 05/23/21 documented as of this encounter
--- OUTSIDE RECORDS SUMMARY | 2024-07-30 20:39 | XMS_ITS | Encounter Summary ---
Author Organization [facility] Address [address] [place] [address] Care Team Providers Care Cornice Upholsterer Name Role Phone Tao Jeffers MD Primary Care Provider Victor M Barnes MD Unavailable Zane Lopez MD Unavailable [phone] Miscellaneous, Not In File Unavailable Unava ilable Encounter Details Date Type Department Care Team (Late st Contact Info) Description 05/24/2021 Telephone [facility] Cardiology [address] [place] [address] Victor M Barnes MD [address] [id number] Social History Tobacco Use Types Packs/Day Years Used Date Smoking Tobacco: Former Smokeless Tobacco: Never Sex and Gender Information Value Date Recorded Sex Assigned at Not on file Legal Sex Male 12:29 AM DIE PRESSER Gender Identity Not on file Sexual Orientation [...] on filedocumented in this encounter Care Teams Cornice Upholsterer Relationship Specialty Start Date End Date Tao Jeffers MD [address] [place], [place] [phone] PCP - General 12/18/11 Victor M Barnes MD [address] [place] [phone] Consulting Physician Cardiology 05/16/21 Zane Lopez MD [address] [place] [address] Consulting Physician Electrophysiology 05/16/21 Miscellaneous, Not In File 05/23/21 documented as of this encounter
--- OUTSIDE RECORDS SUMMARY | 2024-07-30 20:39 | XMS_ITS | Encounter Summary ---
Author Organization [facility] Address [address] [place] [address] Care Team Providers Care Rack Washer Name Role Phone Tao Jeffers MD Primary Care Provider [phone] Encounter Details Date Type Department Care Team (Late st Contact Info) Description 05/13/2021 Telephone [facility] Cardiology [address] [place] [address] Victor M Barnes MD [address] [facility] [address] [place] [address] Social History Tobacco Use Types Packs/Day Years Used Date Smoking Tobacco: Former Smokeless Tobacco: Never Sex and Gender Information Value Date Recorded Sex Assigned at Not on file Legal Sex Male 12:29 AM SOLAR PV INSTALLER Gender Identity Not on file Sexual Orientation [...] not want to give any details. ?? Contact:[phone] documented in this encounter Plan of Treatment [...] documented as of this encounter Care Teams Rack Washer Relationship Specialty Start Date End Date Tao Jeffers MD [address] [place] [address] PCP - General 12/18/11 documented as of this encounter
--- OUTSIDE RECORDS SUMMARY | 2024-07-30 20:39 | XMS_ITS | Encounter Summary ---
Author Organization [facility] Address [address] [place] [address] Care Team Providers Care Vending Machine Filler Name Role Phone Tao Jeffers MD Primary Care Provider [phone] Victor M Barnes MD Unavailable Zane Lopez MD Unavailable Miscellaneous, Not In File Unavailable Unava ilable Encounter Details Date Type Department Care Team (Late st Contact Info) Description 05/31/2021 Telephone [facility]ia [facility] [address] [facility] [address] [place] [address] Zane Lopez MD [address] [facility] [address] [place] [address] Social History Tobacco Use Types Packs/Day Years Used Date Smoking Tobacco: Former Smokeless Tobacco: Never Sex and Gender Information Value Date Recorded Sex Assigned at Not on file Legal Sex Male 12:29 AM HOSPITAL MORTICIAN Gender Identity Not on file Sexual Orientation [...] 9:39 AM CST Patient scheduled for 06/10/2021 ITAL MORTICIAN * Telephone Encounter - Zane Lopez MD [...] on filedocumented in this encounter Care Teams Vending Machine Filler Relationship Specialty Start Date End Date Tao Jeffers MD [address] [place], [place] [address] PCP - General 12/18/11 Victor M Barnes MD [address] [place], [place] [phone] Consulting Physician Cardiology 05/16/21 Zane Lopez MD [address] [place] [address] Consulting Physician Electrophysiology 05/16/21 Miscellaneous, Not In File 05/23/21 documented as of this encounter
--- OUTSIDE RECORDS SUMMARY | 2024-07-30 20:39 | XMS_ITS | Encounter Summary ---
Author Organization [facility] Address [address] [place] [address] Care Team Providers Care Control Clerk Repairs Name Role Phone Tao Jeffers MD Primary Care Provider [phone] Victor M Barnes MD Unavailable Zane Lopez MD Unavailable Miscellaneous, Not In File Unavailable Unava ilable Encounter Details Date Type Department Care Team (Late st Contact Info) Description 05/23/2021 2:09 PM CDT Anesthesia Event [facility] [address] [place] [address] Pardeep Cohen MD [address] [place] [address] Robby Sarabia MD [address] [place], [place] [id number] Anesthesia Record Procedure Summary Procedure Name Responsible Anesthesiologist Anesthesia Start Time Anesthesia Stop Time INSERT/REPLACE IMPLANTABLE CARDIOVERTER-DEFIBRIL LATOR (ICD) DUAL CHAMBER SYSTEM 36214 Pardeep Cohen MD 05/23/21 1409 05/23/21 1642 [...] on file Legal Sex Male 12:29 AM CHIROPRACTOR SOLE PRACTITIONER Gender Identity Not on file Sexual Orientation Not on file documented as of this encounter OR Notes * Anesthesia Postprocedure Evaluation - Jessica Charles CRNA - 05/23/2021 4:45 PM CDT Patient: Lm Jimenez Procedure Summary Date: 05/23/21 Room / Location: [facility] / [facility] Anesthesia Start: 140 Anesthesia Stop: 1641 Procedures: INSERT/REPLACE IMPLANTABLE CARDIOVERTER-DEFIBRILLATOR (ICD) DUAL CHAMBER SYSTEM 40692 (N/A ) INSERT LV LEAD W PACEMAKER (PPM) OR IMPLANTABLE CARDIOVERTER-DEFIBRILLATOR (ICD) PLACEMENT (+) 49803 (N/A ) Diagnosis: Paroxysmal atrial fibrillation (CMS/HCC) (HCC) (Paroxysmal atrial fibrillation (CMS/HCC) (HCC) [I48.0]) Providers: Zane Lopez MD Responsible Provider: Pardeep Cohen MD Anesthesia Type: general/TIVA ASA Status: 4 Anesthesia Type: general/TIVA Last vitals BP 98/68 Pulse 68 Resp 16 SpO2 92% Anesthesia Post Evaluation Patient location: [facility] recovery area. Patient participation: complete - patient participated Level of consciousness: arouses online merchandising specialist and follows simple commands Pain management: adequate [...] INSERT/REPLACE IMPLANTABLE CARDIOVERTER-DEFIBRILLATOR (ICD) DUAL CHAMBER SYSTEM 36173 INSERT LV LEAD W PACEMAKER (PPM) OR IMPLANTABLE CARDIOVERTER-DEFIBRILLATOR (ICD) PLACEMENT (+) [id number] Pre-Op Diagnosis Codes: * Paroxysmal atrial fibrillation (CMS/HCC) (HCC) [I48.0] Sciona COVID-19 Vaccine (Pfizer SARS-CoV-2 Vaccination) 10/23/2020, 10/02/2020 [facility] 05/20/21 NPO Status Date of Last Liquid: [...] Clinical correlation advised. Recommend follow up with wood club neck whipper. Negative EKG portion of stress test. Electronically Signed By: Сергей Barnes MD 2021-03-06 17:07:09 CDT Patient Active Problem List Diagnosis ??? Paroxysmal atrial fibrillation (CMS/HCC) (HCC) ??? 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 Cardiomyopathy (HCC) ??? At risk for amiodarone toxicity with senior living use ??? Mixed dyslipidemia ??? HTN (hypertension), [...] Medication protocol when under care of a VICE PRESIDENT OF NURSING Planned anesthesia: General/TIVA Induction: Induction: intravenous. Postoperative [...] 05/23/2021 2:15 PM CDT 25 mcg phenylephrine (PAEMLA-SYNEPHRINE) 1 mg/10 mL (100 mcg/mL) in sodium [...] CDT documented in this encounter Care Teams Control Clerk Repairs Relationship Specialty Start Date End Date Tao Jeffers MD [address] [place] [address] PCP - General 12/18/11 Victor M Barnes MD [address] [place], [place] [address] Consulting Physician Cardiology 05/16/21 Zane Lopez MD [address] [place] [address] Consulting Physician Electrophysiology 05/16/21 Miscellaneous, Not In File 05/23/21 documented as of this encounter
--- OUTSIDE RECORDS SUMMARY | 2024-07-30 20:39 | XMS_ITS | Encounter Summary ---
Author Organization [facility] Address [address] [place] [address] Care Team Providers Care Commission Agent Livestock Name Role Phone Tao Jeffers MD Primary Care Provider [phone] Encounter Details Date Type Department Care Team (Late st Contact Info) Description 05/01/2021 Telephone [facility] Cardiology [address] [place] [address] Victor M Barnes MD [address] [id number] Social History Tobacco Use Types Packs/Day Years Used Date Smoking Tobacco: Former Smokeless Tobacco: Never Sex and Gender Information Value Date Recorded Sex Assigned at Not on file Legal Sex Male 12:29 AM SHAKER OUT Gender Identity Not on file Sexual Orientation [...] on filedocumented in this encounter Care Teams Commission Agent Livestock Relationship Specialty Start Date End Date Tao Jeffers MD [address] [place] [address] PCP - General 12/18/11 documented as of this encounter
--- OUTSIDE RECORDS SUMMARY | 2024-07-30 20:39 | XMS_ITS | Encounter Summary ---
Author Organization [facility] Address [address] [facility] [address] [place] [address] Care Team Providers Care Ratoprinter Name Role Phone Tao Jeffers MD Primary Care Provider [phone] Encounter Details Date Type Department Care Team (Late st Contact Info) Description 05/10/2021 Telephone [facility]hythmia Center [address] [facility] [address] [place] [address] Zane Lopez MD [address] [facility] [address] [place] [address] Social History Tobacco Use Types Packs/Day Years Used Date Smoking Tobacco: Former Smokeless Tobacco: Never Sex and Gender Information Value Date Recorded Sex Assigned at Not on file Legal Sex Male 12:29 AM DOCUMENT SCANNER Gender Identity Not on file Sexual Orientation Not on file documented as of this encounter Miscellaneous Notes * Telephone Encounter - Sumaya Smith MA - 05/10/2021 1:25 PM CDT Spoke to PT, scheduled for Thursday05/15/21 @ 8:15 am. Address and phone # given. front desk assistant notified of need for insurance referral. * [...] PCI Dr. Barnes spoke with me regarding IMMUNOPATHOLOGIST ICD and AVJ ablation documented in this encounter Plan of Treatment Not on file documented as of this encounter Visit Diagnoses Not on filedocumented in this encounter Care Teams Ratoprinter Relationship Specialty Start Date End Date Tao Jeffers MD [address] [place] [address] PCP - General 12/18/11 documented as of this encounter
--- OUTSIDE RECORDS SUMMARY | 2024-07-30 20:39 | XMS_ITS | Encounter Summary ---
Author Organization [facility] Healthcare Address [address] [place] [address] Care Team Providers Care Artisan Plasterer Name Role Phone Tao Jeffers MD Primary Care Provider [phone] Victor M Barnes MD Unavailable [phone] Zane Lopez MD Unavailable Miscellaneous, Not In File Unavailable Unava ilable Encounter Details Date Type Department Care Team (Late st Contact Info) Description 06/10/2021 3:00 PM COLOR GRINDER - 06/10/2021 4:20 PM COLOR GRINDER Surgery [facility] [address] [place] [address] Zane Lopez MD [address] [facility] [address] [place] [address] ATRIOVENTRICULAR (AV) NODE ABLATION 55184 Surgery Details Date/Time Status Location OR Service Patient Class Case Class Case Type Trauma Case? 06/10/2021 3:00 PM Posted [facility] CARDIAC HUMAN RESOURCES ADMIN CCL/ EP C Cardiovascular Outpatient Elective Panel 1 Procedure LRB Anes Op Region Wound Class Comments ATRIOVENTRICULAR (AV) NODE ABLATION 04820 N/A Choice St Len PERIPROC PPM EVAL/REPROG 76746 N/A Surgeon Surgeon Role Service Panel Zane Lopez MD Primary Cardiovascular 1 Case Notes ORDERS [facility] ref# [id number] JUDEAV NODE/AVJ ABLATION documented in this encounter Social History Tobacco Use Types Packs/Day Years Used Date Smoking Tobacco: Former Smokeless Tobacco: Never Sex and Gender Information Value Date Recorded Sex Assigned at Not on file Legal Sex Male 12:29 AM COLOR GRINDER Gender Identity Not on file Sexual Orientation Not on file documented as of this encounter Last Filed Vital Signs Vital Sign Reading Time Taken Comments Blood Pressure 117/74 06/10/2021 4:20 PM COLOR GRINDER Pulse 81 06/10/2021 4:20 PM COLOR GRINDER Temperature 2.4 ??C (36.4 ??F) 06/10/2021 11 :06 AM COLOR GRINDER Respiratory Rate 16 06/10/2021 11:0 6 AM COLOR GRINDER Oxygen Saturation 90% 06/10/2021 4:20 PM COLOR GRINDER Inhaled Oxygen Concentration - - Weight 80.2 kg (176 lb 12.9 oz) 021 11:06 AM COLOR GRINDER Height 180.3 cm (5' 11 ) 06/10/2021 11: 06 AM COLOR GRINDER Body Mass Index 24.66 06/10/2021 11:06 AM COLOR GRINDER documented in this encounter Discharge Instructions * Discharge Instructions* Ashley Osborne RN - 06/10/2021 5:05 PM COLOR GRINDER Cardiac Laboratory [address] [place], [place] [address] [facility] Discharge Instructions---Angiogram MEDICATIONS [] Do not take [...] for any reason without discussing with your mitochondrial disorders counselor first. - These medications may make you [...] home diet [] Special diet Instructed by Electronic Console Display Operator ACTIVITY You have been given medications [...] Patient/Family Signature: Staff Signature/Title: Date and Time: R GRINDER documented in this encounter Medications at Time [...] for : Procedure(s): ATRIOVENTRICULAR (AV) NODE ABLATION 11324 R GRINDER Source Note - Zane Lopez MD - [...] Class 3. CAD status post PCI Plan: HEAD PUMPER ICD and AV node ablation. Will performed in staged fashion Hold Eliquis 2 days prior Zane Lopez MD documented in this encounter Plan of Treatment Not on file documented as of this encounter Procedures Procedure Name Priority Date/Time Associated Diagnosis Comments ECG 12-LEAD Routine 06/10/2021 4:24 PM COLOR GRINDER PERIPROC PPM EVAL/REPROG [id number] Routine 06/10/2021 3:48 PM COLOR GRINDER Paroxysmal atrial fibrillation (CMS/HCC) (HCC) ATRIOVENTRICULAR (AV) NODE ABLATION Routine 06/10/2021 3:48 PM COLOR GRINDER Paroxysmal atrial fibrillation (CMS/HCC) (HCC) ECG 12-LEAD STAT 06/10/2021 11:32 AM COLOR GRINDER documented in this encounter Results * ECG 12 lead (06/10/2021 4:24 PM COLOR GRINDER) 06/10/2021 4:24 PM COLOR GRINDER Narrative [facility] - 06/11/2021 7:28 AM COLOR GRINDER Vent Rate: 80 bpm RR Interval: 748 msec MI Interval: 242 msec QRS Duration: 151 msec QT Interval: 461 msec QTC Interval: 497 msec P-R-T [place]: 119 - -64 - 105 degrees ELECTRONIC VENTRICULAR PACEMAKER ABNORMAL RHYTHM ECG Electronically Signed By: Pardeep Emerson MD ??[facility] Card us Zane Lopez MD ECG ORDERABLES Final Resul t [facility] * ATRIOVENTRICULAR (AV) NODE ABLATION, PERIPROC PPM EVAL/REPROG [id number] (06/10/2021 3:48 PM COLOR GRINDER) Anatomical Region Laterality Modality X-Ray Angiograph y Narrative 06/11/2021 9:57 AM COLOR GRINDER Procedure Electrophysiology Study Radiofrequency Catheter Ablation of [...] * ECG 12 lead (06/10/2021 11:32 AM COLOR GRINDER) 06/10/2021 11:3 2 AM COLOR GRINDER Narrative [facility] - 06/10/2021 11:51 AM COLOR GRINDER Vent Rate: 98 bpm RR Interval: 612 msec MI Interval: 0 msec QRS Duration: 104 msec QT Interval: 390 msec QTC Interval: 445 msec P-R-T [place]: 0 - 13 - -37 degrees ATRIAL FIBRILLATION NONSPECIFIC T-WAVE ABNORMALITY ABNORMAL RHYTHM ECG Electronically Signed By: Gennaro Lujan DO [facility] us Zane Lopez MD ECG ORDERABLES Edited Resu lt - Final [facility] documented in this encounter Visit Diagnoses Diagnosis [...] Shoulder PainIndications:Shoulder Pain Given 06/10/2021 4:34 PM COLOR GRINDER 650 mg heparin in 0.9% sodium chloride 1,000 units/500 mL (2 unit/mL) infusion (premix) As needed, Starting on Thu06/10/21 at 1511, Intra-Procedure (CV) Given 06/10/2021 3:50 PM COLOR GRINDER 500 mL Given 06/10/2021 3:11 PM COLOR GRINDER 500 mL lidocaine (XYLOCAINE) 20 mg/mL (2 %) injection As needed, Starting on Thu06/10/21 at 1510, Intra-Procedure (CV), Indications: Administration of Local AnesthesiaIndications:Administrati on of Local Anesthesia Given 06/10/2021 3:10 PM COLOR GRINDER 12 mL Right Groin sodium chloride 0.9% [...] Pre-Procedure (CV) New Bag 06/10/2021 2:58 PM COLOR GRINDER documented in this encounter Discontinued Medications Medication [...] Recently Administered Medications Times are shown in COLOR GRINDER. Scheduled Medication Order 06/08/2021 06/09/2021 06/10/2021 acetaminophen [...] Comment: back table flush)1550 (Given - Provider: aZne Lopez MD - Comment: Ablation catheter) lidocaine [...] 06/10/2021 documented in this encounter Care Teams Artisan Plasterer Relationship Specialty Start Date End Date Tao Jeffers MD [address] [place] [address] PCP - General 12/18/11 Victor M Barnes MD [address] [place] [address] Consulting Physician Cardiology 05/16/21 Zane Lopez MD [address] [place] [address] Consulting Physician Electrophysiology 05/16/21 Miscellaneous, Not In File 05/23/21 documented as of this encounter
--- OUTSIDE RECORDS SUMMARY | 2024-07-30 20:39 | XMS_ITS | Encounter Summary ---
Author Organization [facility] Medical Group Address [address] [place] [address] Care Team Providers Care System Safety Manager Name Role Phone Tao Jeffers MD Primary Care Provider [phone] Victor M Barnes MD Unavailable [phone] Zane Lopez MD Unavailable Miscellaneous, Not In File Unavailable Unava ilable Encounter Details Date Type Department Care Team (Late st Contact Info) Description 06/07/2021 Telephone [facility] Medical [facility] Cardiology [address] [place] [address] Victor M Barnes MD [address] [id number] Social History Tobacco Use Types Packs/Day Years Used Date Smoking Tobacco: Former Smokeless Tobacco: Never Sex and Gender Information Value Date Recorded Sex Assigned at Not on file Legal Sex Male 12:29 AM ADMINISTRATIVE SECRETARY Gender Identity Not on file Sexual Orientation Not on file documented as of this encounter Miscellaneous Notes * Telephone Encounter - Yuko Burden RN - 06/07/2021 8:59 AM ADMINISTRATIVE SECRETARY Called pt, last night pt got up [...] Pt appreciated the callback and verbalized understanding. NISTRATIVE SECRETARY * Telephone Encounter - Rita Lynch - 06/07/2021 8:14 AM CST Patient called back regarding the message regardingt his left ankle that is swollen, he wants to know what he should do NISTRATIVE SECRETARY * Telephone Encounter - Sejal Bearden - 06/07/2021 7:18 AM CST Aditi [phone] from outside exchange called and stated the pt called this morning with symptoms of his left ankle is swollen and is black & blue colored. Pt stated he has an upcoming Ablation scheduled for Thursday. Pt stated he had a pacemaker put in a couple weeks ago. NISTRATIVE SECRETARY documented in this encounter Plan of Treatment Not on file documented as of this encounter Visit Diagnoses Not on filedocumented in this encounter Care Teams System Safety Manager Relationship Specialty Start Date End Date Tao Jeffers MD [address] [place] [address] PCP - General 12/18/11 Victor M Barnes MD [address] [place] [address] Consulting Physician Cardiology 05/16/21 Zane Lopez MD [address] [place] [address] Consulting Physician Electrophysiology 05/16/21 Miscellaneous, Not In File 05/23/21 documented as of this encounter
--- OUTSIDE RECORDS SUMMARY | 2024-07-30 20:39 | XMS_ITS | Encounter Summary ---
Author Organization [facility] Medical Group Address [address] [place] [address] Care Team Providers Care Mailing Machine Helper Name Role Phone Tao Jeffers MD Primary Care Provider [phone] Reason for Visit * Reason Comments Atrial Fibrillation * Consultation (Routine) - Closed Specialty Diagnoses / Procedures Referred By Contac t Referred To Contact Cardiology Diagnoses Paroxysmal atrial fibrillation (CMS/HCC) (HCC) Tao Jeffers MD [address] [place] [address] Phone: tel: fax: Zane Lopez MD Phone: tel: fax: Referral ID Status Reason Start Date Expiration Date V isits Requested Visits Authorized [id number] Closed Specialty Services Required 05/10/2021 11/06/2021 3 3 Encounter Details Date Type Department Care Team (Late st Contact Info) Description 05/15/2021 8:15 AM CDT Office Visit [facility] [address] [place] [address] Zane Lopez MD [address] [facility] [address] [place] [address] Paroxysmal atrial fibrillation (CMS/HCC) (HCC) (Primary Dx) Social History Tobacco Use Types Packs/Day Years Used Date Smoking Tobacco: Former Smokeless Tobacco: Never Sex and Gender Information Value Date Recorded Sex Assigned at Not on file Legal Sex Male 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 CAD status post PCI Plan: GLOBE TESTER ICD and AV node ablation. Will performed [...] Nasopharyngeal Microbiology Routine Paroxysmal atrial fibrillation (CMS/HCC) ([facility]) Expected: 05/15/2021, Expires: 05/15/2022 documented as of this encounter Procedures Procedure Name Priority Date/Time Associated Diagnosis Comments ECG 12-LEAD Routine 05/15/2021 Paroxysmal atrial fibrillation (CMS/HCC) ([facility]) documented in this encounter Results * ECG 12 lead (05/15/2021) us Zane Lopez MD ECG ORDERABLES Final Resul t documented in this encounter Visit Diagnoses Diagnosis Paroxysmal atrial fibrillation (CMS/HCC) ([facility])- Primary Atrial fibrillation documented in this encounter Historical Medications * This list may reflect changes made after this encounter. aspirin 81 mg enteric coated tablet Take 81 mg by mouth daily 07/03/2021 added in this encounter Orders Outpatient Referral Count Last Ordered Date Fir st Ordered Date AMB REFERRAL TO CARDIAC ELECTROPHYSIOLOGY 1 05/15/2021 documented in this encounter Care Teams Mailing Machine Helper Relationship Specialty Start Date End Date Tao Jeffers MD [address] [place] [address] PCP - General 12/18/11 documented as of this encounter
--- OUTSIDE RECORDS SUMMARY | 2024-07-30 20:39 | XMS_ITS | Encounter Summary ---
Author Organization [facility] Medical Group Address [address] [place] [address] Care Team Providers Care Oracle Applications Developer Name Role Phone Tao Jeffers MD Primary Care Provider Victor M Barnes MD Unavailable Zane Lopez MD Unavailable [phone] Miscellaneous, Not In File Unavailable Unava ilable Encounter Details Date Type Department Care Team (Late st Contact Info) Description 07/02/2021 Telephone [facility] Cardiology [address] [place] [address] Victor M Barnes MD [address] [id number] Social History Tobacco Use Types Packs/Day Years Used Date Smoking Tobacco: Former Smokeless Tobacco: Never Sex and Gender Information Value Date Recorded Sex Assigned at Not on file Legal Sex Male 12:29 AM DIVORCE MEDIATOR Gender Identity Not on file Sexual Orientation Not on file documented as of this encounter Miscellaneous Notes * Telephone Encounter - Yuko Burden RN - 07/02/2021 4:44 PM DIVORCE MEDIATOR Called pt and reviewed message from AD-he verbalized understanding and agreed to an appt with AD tomorrow afternoon. RCE MEDIATOR * Telephone Encounter - Victor M Barnes MD - 07/02/2021 4:31 PM DIVORCE MEDIATOR Well if possible and if he is okay with that I would like to see him sooner as well. I am glad he is feeling better and have been interested in getting an update as to how things were going. I agree with recommendations. Continue to monitor blood pressure, edema and symptoms and notify the office if he has any other concerns. RCE MEDIATOR * Telephone Encounter - Yuko Burden RN - 07/02/2021 2:38 PM DIVORCE MEDIATOR Pt called with an update for AD-when [...] Please advise if deem necessary, thank you! RCE MEDIATOR * Telephone Encounter - Gage Blanco - 07/02/2021 1:04 PM CST Pt requesting a call from nurse Huntley.Thank you Contact:[phone] RCE MEDIATOR documented in this encounter Plan of Treatment Not on file documented as of this encounter Visit Diagnoses Not on filedocumented in this encounter Care Teams Oracle Applications Developer Relationship Specialty Start Date End Date Tao Jeffers MD [address] [place], [place] [address] PCP - General 12/18/11 Victor M Barnes MD [address] [place] [address] Consulting Physician Cardiology 05/16/21 Zane Lopez MD [address] [place], [place] [id number] Consulting Physician Electrophysiology 05/16/21 Miscellaneous, Not In File 05/23/21 documented as of this encounter
--- OUTSIDE RECORDS SUMMARY | 2024-07-30 20:39 | XMS_ITS | Encounter Summary ---
Author Organization [facility] Medical Group Address [address] [place] [address] Care Team Providers Care Marshmallow Maker Name Role Phone Tao Jeffers MD Primary Care Provider Victor M Barnes MD Unavailable Zane Lopez MD Unavailable [phone] Miscellaneous, Not In File Unavailable Unava ilable Encounter Details Date Type Department Care Team (Late st Contact Info) Description 06/19/2021 Telephone [facility] Cardiology [address] [place] [address] Victor M Barnes MD [address] [address] [place], [place] [id number] Social History Tobacco Use Types Packs/Day Years Used Date Smoking Tobacco: Former Smokeless Tobacco: Never Sex and Gender Information Value Date Recorded Sex Assigned at Not on file Legal Sex Male 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 INE TOOL BUILDER * Telephone Encounter - An Cristina MA - 06/19/2021 9:38 AM CST Pt called wanting to s/w nurse Yuko, does not want to give any details on reason for call Cb:[phone] RICKY Mancia INE TOOL BUILDER documented in this encounter Plan of Treatment Not on file documented as of this encounter Visit Diagnoses Not on filedocumented in this encounter Care Teams Marshmallow Maker Relationship Specialty Start Date End Date Tao Jeffers MD [address] [place], [place] [id number] PCP - General 12/18/11 Victor M Barnes MD [address] [place], [place] [id number] Consulting Physician Cardiology 05/16/21 Zane Lopez MD [address] [place], [place] [id number] Consulting Physician Electrophysiology 05/16/21 Miscellaneous, Not In File 05/23/21 documented as of this encounter
--- OUTSIDE RECORDS SUMMARY | 2024-07-30 20:39 | XMS_ITS | Encounter Summary ---
Author Organization [facility] Medical Group Address [address] [place] [address] Care Team Providers Care Boat Outfitting Supervisor Name Role Phone Tao Jeffers MD Primary Care Provider [phone] Victor M Barnes MD Unavailable Zane Lopez MD Unavailable Encounter Details Date Type Department Care Team (Late st Contact Info) Description 04/18/2021 Telephone [facility] Cardiology [address] [place] [address] Victor M Barnes MD [address] [address] Social History Tobacco Use Types Packs/Day Years Used Date Smoking Tobacco: Former Smokeless Tobacco: Never Sex and Gender Information Value Date Recorded Sex Assigned at Not on file Legal Sex Male 12:29 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
--- OUTSIDE RECORDS SUMMARY | 2024-07-30 20:39 | XMS_ITS | Encounter Summary ---
Author Organization [facility] Medical Group Address [address] [place] [address] Care Team Providers Care Director Field Services Name Role Phone Tao Jeffers MD Primary Care Provider [phone] Victor M Barnes MD Unavailable Zane Lopez MD Unavailable Miscellaneous, Not In File Unavailable Unava ilable Reason for Visit * Reason Comments Follow-up 3 mo f/u Coronary Artery Disease Atrial Fibrillation Encounter Details Date Type Department Care Team (Latest Contact Info) Description 11/28/2021 9:15 AM CDT Office Visit [facility] Medical [facility] Cardiology [address] [place] [address] Victor M Barnes MD [address] [facility] [address] [place] [address] 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 -EF 35% by Echo, [facility]. -EF 45% by Echo 09/2021, improved. [...] required hospitalization and appendectomy. He presented to [facility] on 01/01/2021 under the advice of [...] on amiodarone. ?? 01/18/21 Hospital follow-up with INDUSTRIAL PROPERTY APPRAISER - Lm Stephanie Tony comes to the [...] a presyncopal episode: he fell into the [employer] waste bin head first, got himself up [...] and I told him to contact his retirement village manager and get a appointment next week. ?? [...] medical record, and bloodwork/lipids. Сергей Barnes MD, [facility] This note is dictated and transcribed using [employer] Software. Privacy Analyst variancesmay occur. Despite proofreading, typographical errors may occur. 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
--- OUTSIDE RECORDS SUMMARY | 2024-07-30 20:39 | XMS_ITS | Encounter Summary ---
Author Organization [facility] Medical [facility] Address [address] [place] [address] Care Team Providers Care Volleyball Referee Name Role Phone Tao Jeffers MD Primary Care Provider [phone] Encounter Details Date Type Department Care Team (Late st Contact Info) Description 04/17/2021 Orders Only [facility] Cardiology [address] [place] [address] Victor M Barnes MD [address] [facility] [address] [place] [address] Social History Tobacco Use Types Packs/Day Years Used Date Smoking Tobacco: Former Smokeless Tobacco: Never Sex and Gender Information Value Date Recorded Sex Assigned at Not on file Legal Sex Male 12:29 AM FISCAL ANALYST Gender Identity Not on file Sexual [...] on filedocumented in this encounter Care Teams Volleyball Referee Relationship Specialty Start Date End Date Tao Jeffers MD [address] [place] [address] PCP - General 12/18/11 documented as of this encounter
--- OUTSIDE RECORDS SUMMARY | 2024-07-30 20:39 | XMS_ITS | Encounter Summary ---
Author Organization [facility] Medical Group Address [address] [place] [address] Care Team Providers Care Grounds Foreman Name Role Phone Tao Jeffers MD Primary Care Provider [phone] Encounter Details Date Type Department Care Team (Late st Contact Info) Description 05/03/2021 Telephone [facility] Medical Group Cardiology [address] [place] [address] Victor M Barnes MD [address] [facility] [address] [place], [place] [id number] Social History Tobacco Use Types Packs/Day Years Used Date Smoking Tobacco: Former Smokeless Tobacco: Never Sex and Gender Information Value Date Recorded Sex Assigned at Not on file Legal Sex Male 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
--- OUTSIDE RECORDS SUMMARY | 2024-07-30 20:39 | XMS_ITS | Encounter Summary ---
Author Organization [facility] Address [address] [place] [address] Care Team Providers Care Bakery Decorator Name Role Phone Tao Jeffers MD Primary Care Provider [phone] Encounter Details Date Type Department Care Team (Late st Contact Info) Description 04/30/2021 Orders Only [facility] Cardiology [address] [place] [address] Ayla Ballesteros MA Social History Tobacco Use Types Packs/Day Years Used Date Smoking Tobacco: Former Smokeless Tobacco: Never Sex and Gender Information Value Date Recorded Sex Assigned at Not on file 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
--- OUTSIDE RECORDS SUMMARY | 2024-07-30 20:39 | XMS_ITS | Encounter Summary ---
Author Organization [facility] Medical [facility] Address [address] [facility] [address] [place] [address] Care Team Providers Care Procurement Buyer Name Role Phone Tao Jeffers MD Primary Care Provider [phone] Victor M Barnes MD Unavailable [phone] Zane Lopez MD Unavailable Encounter Details Date Type Department Care Team (Late st Contact Info) Description 05/16/2021 Telephone [facility] Cardiology [address] [facility] [address] [place] [address] Victor M Barnes MD [address] [address] Social History Tobacco Use Types Packs/Day Years Used Date Smoking Tobacco: Former Smokeless Tobacco: Never Sex and Gender Information Value Date Recorded Sex Assigned at Not on file Legal Sex Male 12:29 AM CORRECTIONAL NURSE Gender Identity Not on file Sexual Orientation [...] Spoke with pt, he is at the [employer] store and asked that I call him [...] documented as of this encounter Care Teams Procurement Buyer Relationship Specialty Start Date End Date Tao Jeffers MD [address] [place] [address] PCP - General 12/18/11 Victor M Barnes MD [address] [place], [place] [address] Consulting Physician Cardiology 05/16/21 Zane Lopez MD [address] [place], [place] [address] Consulting Physician Electrophysiology 05/16/21 documented as of this encounter
--- OUTSIDE RECORDS SUMMARY | 2024-07-30 20:39 | XMS_ITS | Encounter Summary ---
Author Organization [facility] Address [address] [facility] [address] [place] [address] Care Team Providers Care Manager Medicare Name Role Phone Tao Jeffers MD Primary Care Provider [phone] Victor M Barnes MD Unavailable [phone] Zane Lopez MD Unavailable [phone] Miscellaneous, Not In File Unavailable Unava ilable Reason for Visit * Cardiology (Routine) - Closed Specialty Diagnoses / Procedures Referred By Contac t Referred To Contact Diagnoses Paroxysmal atrial fibrillation (CMS/HCC) (HCC) Procedures DEVICE CHECK - IN OFFICE Zane Lopez MD [address] [place] [address] Phone: tel: fax: [facility] Referral ID Status Reason Start Date Expiration Date Visits Re quested Visits Authorized [id number] Closed 05/29/2021 06/28/2022 1 1 Encounter Details Date Type Department Care Team (Latest Contact Info) Description 06/28/2021 9:15 AM NURSE PLASTICS Ancillary Procedure [facility] [address] [facility] [address] [place] [id number] Paroxysmal atrial fibrillation (CMS/HCC) (HCC); Automatic implantable cardiac defibrillator in situ Social History Tobacco Use Types Packs/Day Years Used Date Smoking Tobacco: Former Smokeless Tobacco: Never Sex and Gender Information Value Date Recorded Sex Assigned at Not on file Legal Sex Male 12:29 AM NURSE PLASTICS Gender Identity Not on file Sexual Orientation Not on file documented as of this encounter Plan of Treatment Not on file documented as of this encounter Procedures Procedure Name Priority Date/Time Associated Diagnosis Comments DEVICE CHECK - IN OFFICE Routine 06/28/2021 8:42 AM NURSE PLASTICS Paroxysmal atrial fibrillation (CMS/HCC) (HCC) documented in this encounter Results * DEVICE CHECK - IN OFFICE (06/28/2021 8:42 AM NURSE PLASTICS) Anatomical Region Laterality Modality Other Narrative 06/28/2021 3:08 PM NURSE PLASTICS This patient received a Ji BiV ICD. [...] and I told him to contact his plastic block boiler reliner and get a appointment next week. Jose Hutchinson R.N. us Zane Lopez MD CV CARDIAC SERVICES PROCEDU RES Final Result documented in this encounter Visit Diagnoses Diagnosis Paroxysmal atrial fibrillation (CMS/HCC) (HCC) Atrial fibrillation Automatic implantable cardiac defibrillator in situ documented in this encounter Care Teams Manager Medicare Relationship Specialty Start Date End Date Tao Jeffers MD [address] [place], [place] [address] PCP - General 12/18/11 Victor M Barnes MD [address] [place], [place] [phone] Consulting Physician Cardiology 05/16/21 Zane Lopez MD [address] [place], [place] [address] Consulting Physician Electrophysiology 05/16/21 Miscellaneous, Not In File 05/23/21 documented as of this encounter
--- OUTSIDE RECORDS SUMMARY | 2024-07-30 20:40 | XMS_ITS | Encounter Summary ---
Author Organization [facility] Medical [facility] Address [address] [facility] [address] [place] [address] Care Team Providers Care Harmonica Maker Name Role Phone Tao Jeffers MD Primary Care Provider [phone] Encounter Details Date Type Department Care Team (Late st Contact Info) Description 01/03/2021 Orders Only [facility] Cardiology [address] [place] [address] Victor M Barnes MD [address] [facility] [address] [place] [address] Social History Tobacco Use Types Packs/Day Years Used Date Smoking Tobacco: Never Assessed Sex and Gender Information Value Date Recorded Sex Assigned at Not on file Legal Sex Male 12:29 AM WORKFORCE STAFFING ADVISOR Gender Identity Not on file Sexual [...] on filedocumented in this encounter Care Teams Harmonica Maker Relationship Specialty Start Date End Date Tao Jeffers MD [address] [place] [address] PCP - General 12/18/11 documented as of this encounter
--- OUTSIDE RECORDS SUMMARY | 2024-07-30 20:40 | XMS_ITS | Encounter Summary ---
Author Organization [facility] Medical Group Address [address] [facility] [address] [place] [address] Care Team Providers Care Fisheries Specialist Name Role Phone Tao Jeffers MD Primary Care Provider [phone] Encounter Details Date Type Department Care Team (Late st Contact Info) Description 01/02/2021 Orders Only [facility] Medical Group Cardiology [address] [place] [address] Victor M Barnes MD [address] [facility] [address] [place] [address] Social History Tobacco Use Types Packs/Day Years Used Date Smoking Tobacco: Never Assessed Sex and Gender Information Value Date Recorded Sex Assigned at Not on file Legal Sex Male 12:29 AM CONE TENDER Gender Identity Not on file Sexual [...] on filedocumented in this encounter Care Teams Fisheries Specialist Relationship Specialty Start Date End Date Tao Jeffers MD [address] [place] [address] PCP - General 12/18/11 documented as of this encounter
--- OUTSIDE RECORDS SUMMARY | 2024-07-30 20:40 | XMS_ITS | Encounter Summary ---
Author Organization [facility] Medical [facility] Address [address] [facility] [address] [place] [address] Care Team Providers Care Hat Designer Name Role Phone Tao Jeffers MD Primary Care Provider Victor M Barnes MD Unavailable Zane Lopez MD Unavailable Encounter Details Date Type Department Care Team (Late st Contact Info) Description 04/16/2021 Telephone [facility] Cardiology [address] [facility] [address] [place] [address] Victor M Barnes MD [address] [address] Social History Tobacco Use Types Packs/Day Years Used Date Smoking Tobacco: Former Smokeless Tobacco: Never Sex and Gender Information Value Date Recorded Sex Assigned at Not on file Legal Sex Male 12:29 AM OPERATION MANAGER Gender Identity Not on file Sexual Orientation Not on file documented as of this encounter Miscellaneous Notes * Telephone Encounter - Sumaya Wagoner RN - 04/16/2021 11:12 AM CDT Left a message on voice mail giving the number to the [place] area number [phone] to call and check on her husbands [...] on filedocumented in this encounter Care Teams Hat Designer Relationship Specialty Start Date End Date Tao Jeffers MD [address] [place], [place] [address] PCP - General 12/18/11 Victor M Barnes MD [address] [place], [place] [address] Consulting Physician Cardiology 05/16/21 Zane Lopez MD [address] [place], [place] [id number] Consulting Physician Electrophysiology 05/16/21 documented as of this encounter
--- OUTSIDE RECORDS SUMMARY | 2024-07-30 20:40 | XMS_ITS | Encounter Summary ---
Author Organization [facility] Medical [facility] Address [address] [place] [address] Care Team Providers Care Cw Operator Name Role Phone Tao Jeffers MD Primary Care Provider [phone] Encounter Details Date Type Department Care Team (Late st Contact Info) Description 04/04/2021 Telephone [facility] Medical [facility] Cardiology [address] [facility] [address] [place] [address] Yolie Chao NP [address] [facility] [address] [place] [address] Social History Tobacco Use Types Packs/Day Years Used Date Smoking Tobacco: Former Smokeless Tobacco: Never Sex and Gender Information Value Date Recorded Sex Assigned at Not on file Legal Sex Male 12:29 AM MAGISTRATE JUDGE Gender Identity Not on file Sexual Orientation [...] and low BP. (Pt is scheduled for [facility] with AD on 04/16 and pt had [...] documented as of this encounter Care Teams Cw Operator Relationship Specialty Start Date End Date Tao Jeffers MD [address] [place] [address] PCP - General 12/18/11 documented as of this encounter
--- OUTSIDE RECORDS SUMMARY | 2024-07-30 20:40 | XMS_ITS | Encounter Summary ---
Author Organization [facility] Medical [facility] Address [address] [place] [address] Care Team Providers Care Electronic Induction Hardener Name Role Phone Tao Jeffers MD Primary Care Provider [phone] Reason for Referral * Diagnostic Imaging (Routine) - Closed Specialty Diagnoses / Procedures Referred By Contalisia t Referred To Contact Diagnoses Persistent atrial fibrillation (HCC) Procedures NM MPI SPECT (Rest and/or Stress) Multiple Studies Jennifer Chao NP [address] [facility] [address] [address] Phone: tel: fax: [facility] Medical Group Referral ID Status Reason Start Date Expiration Date Visits Re quested Visits Authorized [id number] Closed 02/18/2021 04/04/2021 1 1 Reason for Visit * Reason Comments Follow-up CV * Consultation (Routine) - Closed Specialty Diagnoses / Procedures Referred By Contac t Referred To Contact Cardiology Diagnoses Atrial fibrillation, unspecified type (HCC) Tao Jeffers MD [address] [place] [address] Phone: tel: fax: [facility] Medical [facility] Cardiology [address] [facility] [address] [address] Phone: tel: fax: Referral ID Status Reason Start Date Expiration Date V isits Requested Visits Authorized [id number] Closed Specialty Services Required 01/11/2021 07/10/2021 3 3 Encounter Details Date Type Department Care Team (Late st Contact Info) Description 02/11/2021 8:30 AM CDT Office Visit 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 [facility] Cardiology [address] [address] Date of Visit: 02/11/2021 Patient ID: [id number] [...] and appendectomy. He presented to 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 KITTY Bolanos- Nurse Practitioner with [facility] Cardiology This note is dictated and transcribed using [employer] Direct Software. Framework Developer variancesmay occur. Despite proofreading, typographical errors may [...] AM CDT Narrative 03/06/2021 7:[address] [facility] Medical [facility] Cardiology [address] [facility] [address], [place] [address] [address] [facility] [address] [address] P:[phone] P:[phone] MPI Imaging Report Patient Name: LM JIMENEZ L : 1940 Study Date: 03/06/2021 8:54:04 AM Gender: M Tech: [facility] Location: [place] Ref.Provider: JENNIFER CHAO Height(Cm): 180.3 BSA: Weight(Kg): [...] Clinical correlation advised. Recommend follow up with printed circuit boards router. Negative EKG portion of stress test. Electronically Signed By: Сергей Barnes MD 2021-03-06 17:07:09 CDT Electronically Signed By: Debbie Jerez MD, [facility] 2021-03-06 19:10:48 CDT Procedure Note Debbie Jerez MD - 03/06/2021 [facility] Medical Group Cardiology [address] [facility] [address], [place] [address] [address], [place] [address] P:[phone] P:[phone] MPI Imaging Report Patient Name: LM JIMENEZ LPatient ID: [id number] : [id number] Date: 03/06/2021 8:54:04 AM Gender: MAccession #: [id number] [facility] [place] Ref.Provider: JENNIFER CHAOHeight(Cm): 180.3 BSA: Weight(Kg): 80.7 [...] Clinical correlation advised. Recommend follow up with printed circuit boards router. Negative EKG portion of stress test. 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
--- OUTSIDE RECORDS SUMMARY | 2024-07-30 20:40 | XMS_ITS | Encounter Summary ---
Author Organization [facility] Medical Group Address [address] [facility] [address] [place] [address] Care Team Providers Care Vp Name Role Phone Tao Jeffers MD Primary Care Provider [phone] Encounter Details Date Type Department Care Team (Late st Contact Info) Description 04/16/2021 Orders Only [facility] Medical Group Cardiology [address] [place] [address] Victor M Barnes MD [address] [facility] [address] [place] [address] Social History Tobacco Use Types Packs/Day Years Used Date Smoking Tobacco: Former Smokeless Tobacco: Never Sex and Gender Information Value Date Recorded Sex Assigned at Not on file Legal Sex 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
--- OUTSIDE RECORDS SUMMARY | 2024-07-30 20:40 | XMS_ITS | Encounter Summary ---
Author Organization [facility] Medical Group Address [address] [facility] [address] [place] [address] Care Team Providers Care Bar Steward Name Role Phone Tao Jeffers MD Primary Care Provider [phone] Encounter Details Date Type Department Care Team (Late st Contact Info) Description 01/11/2021 Telephone [facility] Medical [facility] Cardiology [address] [facility] 102 [place] [address] Yolie Chao NP [address] [facility] 102 [place] [address] Social History Tobacco Use Types Packs/Day Years Used Date Smoking Tobacco: Never Assessed Sex and Gender Information Value Date Recorded Sex Assigned at Not on file Legal Sex 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
--- OUTSIDE RECORDS SUMMARY | 2024-07-30 20:40 | XMS_ITS | Encounter Summary ---
Author Organization [facility] Medical Group Address [address] [facility] [facility] [address] [place] [address] Care Team Providers Care Dinker Name Role Phone Tao Jeffers MD Primary Care Provider Encounter Details Date Type Department Care Team (Late st Contact Info) Description 01/15/2021 Telephone [facility] Medical [facility] Cardiology [address] [facility] [address] [place] [address] Victor M Barnes MD [address] [facility] [address] [place], [place] [id number] Social History Tobacco Use Types Packs/Day Years Used Date Smoking Tobacco: Never Assessed Sex and Gender Information Value Date Recorded Sex Assigned at Not on file Legal Sex Male 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
--- OUTSIDE RECORDS SUMMARY | 2024-07-30 20:40 | XMS_ITS | Encounter Summary ---
Author Organization [facility] Medical Group Address [address] [facility] [address] [place] [address] Care Team Providers Care Sales Receptionist Name Role Phone Tao Jeffers MD Primary Care Provider [phone] Reason for Visit * Diagnostic Imaging (Routine) - Closed Specialty Diagnoses / Procedures Referred By Contac t Referred To Contact Diagnoses Persistent atrial fibrillation (HCC) Procedures NM MPI SPECT (Rest and/or Stress) Multiple Studies Yolie Chao NP [address] [address] Phone: tel: fax: [facility] Medical [facility] Referral ID Status Reason Start Date Expiration Date Visits Re quested Visits Authorized [id number] Closed 02/18/2021 04/04/2021 1 1 Encounter Details Date Type Department Care Team (Late st Contact Info) Description 03/06/2021 8:15 AM CDT Ancillary Procedure [facility] Medical 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
--- OUTSIDE RECORDS SUMMARY | 2024-07-30 20:40 | XMS_ITS | Encounter Summary ---
Author Organization [facility] Medical Group Address [address] [facility] [address] [place] [address] Care Team Providers Care Manager Intel Name Role Phone Tao Jeffers MD Primary Care Provider [phone] Encounter Details Date Type Department Care Team (Late st Contact Info) Description 01/18/[address] 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
--- OUTSIDE RECORDS SUMMARY | 2024-07-30 20:40 | XMS_ITS | Encounter Summary ---
Author Organization [facility] Medical Group Address [address] [facility] [address] [place] [address] Care Team Providers Care Truck Hop Name Role Phone Tao Jeffers MD Primary Care Provider [phone] Encounter Details Date Type Department Care Team (Late st Contact Info) Description 01/29/2021 Telephone [facility] Medical Group Cardiology [address] [facility] [address] [place] [address] Yolie Chao NP [address] [facility] [address] [place] [address] Social History Tobacco Use Types Packs/Day Years Used Date Smoking Tobacco: Former Smokeless Tobacco: Never Sex and Gender Information Value Date Recorded Sex Assigned at Not on file Legal Sex Male 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 Contact:[phone] documented in this encounter Plan of Treatment Not on file documented as of this encounter Visit Diagnoses Not on filedocumented in this encounter Care Teams Truck Hop Relationship Specialty Start Date End Date Tao Jeffers MD [address] [place] [address] PCP - General 12/18/11 documented as of this encounter
--- OUTSIDE RECORDS SUMMARY | 2024-07-30 20:40 | XMS_ITS | Encounter Summary ---
Author Organization [facility] Medical Group Address [address] [facility] [address] [place] [address] Care Team Providers Care Radiographer Mammographer Name Role Phone Tao Jeffers MD Primary Care Provider [phone] Encounter Details Date Type Department Care Team (Late st Contact Info) Description 03/08/2021 Telephone [facility] Cardiology [address] [place] [address] Victor M Barnes MD 12[address] [facility] [address] [place], [place] [address] Social History Tobacco Use Types Packs/Day Years Used Date Smoking Tobacco: Former Smokeless Tobacco: Never Sex and Gender Information Value Date Recorded Sex Assigned at Not on file Legal Sex Male 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 Ptverbalized understanding. * Telephone Encounter - Yuko Burden RN - 03/11/2021 8:47 AM CDT Spoke with AD-he said pt can wait until the week of 04/15 if he wants. Called pt and he was at [facility]-requested that I call back after 1030 today. [...] on filedocumented in this encounter Care Teams Radiographer Mammographer Relationship Specialty Start Date End Date Tao Jeffers MD [address] [place] [address] PCP - General 12/18/11 documented as of this encounter
--- OUTSIDE RECORDS SUMMARY | 2024-07-30 20:40 | XMS_ITS | Encounter Summary ---
Author Organization [facility] Address [address] [facility] [address] [place] [address] Care Team Providers Care Speech Communication Instructor Name Role Phone Tao Jeffers MD Primary Care Provider Reason for Visit * Reason Comments Follow-up stress test * Consultation (Routine) - Closed Specialty Diagnoses / Procedures Referred By Contac t Referred To Contact Cardiology Diagnoses Persistent atrial fibrillation (HCC) Tao Jeffers MD [address] [place] [address] Phone: tel: fax: [facility] [address] [facility] [address] [address] Phone: tel: fax: Referral ID Status Reason Start Date Expiration Date V isits Requested Visits Authorized [id number] Closed Specialty Services Required 03/29/2021 09/25/2021 3 3 Encounter Details Date Type Department Care Team (Late st Contact Info) Description 04/08/2021 8:30 AM CDT Office Visit [facility] [address] [facility] [address] [address] Yolie Chao NP [address] [facility] [address] [place] [address] Persistent atrial fibrillation (HCC); Chronic anticoagulation; Tachycardia induced cardiomyopathy (CMS/HCC) (HCC); Coronary artery disease involving [place] coronary artery of [place] heart without angina pectoris Social History Tobacco Use Types Packs/Day Years Used Date Smoking Tobacco: Former Smokeless Tobacco: Never Sex and Gender Information Value Date Recorded Sex Assigned at Not on file Legal Sex Male 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 [facility] Cardiology [address] [place] [address] Date of Visit: 04/08/2021 Patient ID: Lm [...] required hospitalization and appendectomy. He presented to [facility] on 01/01/2021 under the advice of his [...] loaded on amiodarone. 01/18/21 Hospital follow-up with APPRENTICE COSMETOLOGIST - Lm Jimenez comes to the office [...] function, moderate LAE, severe DELMAR, moderate MR, [id number] TR, PASP 29 mmHg, small pericardial effusion [...] Clinical correlation advised. Recommend follow up with crane hoist or lift operator. Negative EKG portion of stress test. Assessment: [...] is below 100 Coronary artery disease involving [place] coronary artery of [place] heart without angina pectoris Plan/Recommendations: He failed [...] concerns. Yolie Chao, ANP- Nurse Practitioner with [facility] This note is dictated and transcribed using MModal Fluency Direct Software. Dredge Pumper variancesmay occur. Despite proofreading, typographical errors may occur. 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 involving [place] coronary artery of [place] heart without angina pectoris documented in this encounter Discontinued Medications Medication Sig Discontinue Reason Start Date End Da te lisinopriL (PRINIVIL,ZESTRIL) 10 mg tablet Take 1 tablet (10 mg total) by mouth daily 04/04/2021 04/08/2021 documented as of this encounter Orders Outpatient Referral Count Last Ordered Date Fir st Ordered Date AMB REFERRAL TO CARDIOLOGY 1 04/08/2021 documented in this encounter Care Teams Speech Communication Instructor Relationship Specialty Start Date End Date Tao Jeffers MD [address] [place] [address] PCP - General 12/18/11 documented as of this encounter
--- OUTSIDE RECORDS SUMMARY | 2024-07-30 20:40 | XMS_ITS | Encounter Summary ---
Author Organization [facility] Address [address] [facility] [address] [place] [address] Care Team Providers Care Seafood Fisherman Name Role Phone Tao Jeffers MD Primary Care Provider Encounter Details Date Type Department Care Team (Late st Contact Info) Description 01/01/2021 Orders Only [facility] Cardiology [address] [place] [address] Victor M Barnes MD [address] [facility] [address] [place] [address] Social History Tobacco Use Types Packs/Day Years Used Date Smoking Tobacco: Never Assessed Sex and Gender Information Value Date Recorded Sex Assigned at Not on file Legal Sex Male 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
--- OUTSIDE RECORDS SUMMARY | 2024-07-30 20:40 | XMS_ITS | Encounter Summary ---
Author Organization [facility] Address [address] [facility] [address] [place] [address] Care Team Providers Care Absorption And Adsorption Engineer Name Role Phone Tao Jeffers MD Primary Care Provider Encounter Details Date Type Department Care Team (Late st Contact Info) Description 01/30/2021 Orders Only [facility] Cardiology [address] [facility] [address] [place] [address] Debbie Jerez MD [address] [place], [place] [id number] Social History Tobacco Use Types Packs/Day Years Used Date Smoking Tobacco: Former Smokeless Tobacco: Never Sex and Gender Information Value Date Recorded Sex Assigned at Not on file Legal 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
--- OUTSIDE RECORDS SUMMARY | 2024-07-30 20:40 | XMS_ITS | Encounter Summary ---
Author Organization [facility] Address [address] [facility] [address] [place] [address] Care Team Providers Care Special Projects Coordinator Name Role Phone Tao Jeffers MD Primary Care Provider [phone] Reason for Visit * Reason Comments Atrial Fibrillation EKG visit only s/p C V * Cardiology (Routine) - Closed Specialty Diagnoses / Procedures Referred By Contac t Referred To Contact Diagnoses Atrial fibrillation, unspecified type (HCC) Procedures ECG 12 lead Jesika Santamaria NP Phone: tel: fax: [facility] Referral ID Status Reason Start Date Expiration Date Visits Re quested Visits Authorized [id number] Closed 01/03/2021 02/02/2022 1 1 Encounter Details Date Type Department Care Team (Latest Contact Info) Description 01/10/2021 1:15 PM CDT Procedure visit [facility] Medical [facility] Cardiology [address] [facility] [address] [place] [address] Atrial fibrillation, unspecified type (CMS/HCC) Social History Tobacco Use Types Packs/Day Years Used Date Smoking Tobacco: Never Assessed Sex and Gender Information Value Date Recorded Sex Assigned at Not on file Legal Sex Male 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
--- OUTSIDE RECORDS SUMMARY | 2024-07-30 20:40 | XMS_ITS | Encounter Summary ---
Author Organization [facility] Address [address] [facility] [address] [place] [address] Care Team Providers Care Powerhouse Attendant Name Role Phone Tao Jeffers MD Primary Care Provider [phone] Reason for Visit * Consultation (Routine) - Closed Specialty Diagnoses / Procedures Referred By Contac t Referred To Contact Cardiology Diagnoses Atrial fibrillation, unspecified type (HCC) Tao Jeffers MD [address] [place] [address] Phone: tel: fax: [facility] Medical [facility] Card[facility] [address] [facility] [address] [facility] [address] [place] [address] Phone: tel: fax: Referral ID Status Reason Start Date Expiration Date V isits Requested Visits Authorized [id number] Closed Specialty Services Required 01/11/2021 07/10/2021 3 3 Encounter Details Date Type Department Care Team (Late st Contact Info) Description 01/18/2021 1:00 PM CDT Office Visit [facility] Medical [facility] Cardiology [address] [address] Yolie Chao NP [address] [facility] [address] [place] [address] Persistent atrial fibrillation with rapid ventricular response (CMS/HCC) (Primary Dx); Tachycardia induced cardiomyopathy (CMS/HCC); Chronic systolic congestive heart failure (CMS/HCC); Chronic anticoagulation; History of cardioversion; Coronary artery disease involving [place] coronary artery of [place]kiak heart without angina pectoris; Dietary counseling; Hospital discharge follow-up; Atrial fibrillation, unspecified type ([facility]) Social History Tobacco Use Types Packs/Day Years Used Date Smoking Tobacco: Former Smokeless Tobacco: Never Sex and Gender Information Value Date Recorded Sex Assigned at Not on file Legal Sex Male 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 https://www.nhlbi.nih.gov/health-topics/nwfc-skbebq-drfs The [place] [employer] website is a great source of information. https://www.heart.org/ documented in this encounter Progress Notes * Yolie Chao NP - 01/18/2021 1:00 PM CDT Images from the original note were not included. [facility] Cardiology [address] [place] [address] Date of Visit: 01/18/2021 Patient ID: Lm [...] and appendectomy. He presented to [facility] on 01/01/2021 under the advice [...] function, moderate LAE, severe DELMAR, moderate MR, [id number]-[id number] TR, PASP 29 mmHg, small pericardial effusion [...] concerns. Yolie Chao, ANP-BC Nurse Practitioner with [facility] Cardiology This note is dictated and transcribed using TOOVIA Direct Software. Silk Screen Cutter variancesmay occur. Despite proofreading, typographical errors [...] History of cardioversion Coronary artery disease involving [place]ki[place] coronary artery of akiak heart without angina pectoris Dietary counseling Dietary [...] 01/23/2021 documented in this encounter Care Teams Powerhouse Attendant Relationship Specialty Start Date End Date Tao Jeffers MD [address] [place] [address] PCP - General 12/18/11 documented as of this encounter
--- OUTSIDE RECORDS SUMMARY | 2024-07-30 20:40 | XMS_ITS | Encounter Summary ---
Author Organization [facility] Address [address] [facility] [address] [place] [address] Care Team Providers Care Tin Can Feeder Name Role Phone Tao Jeffers MD Primary Care Provider [phone] Encounter Details Date Type Department Care Team (Late st Contact Info) Description 01/31/2021 Telephone [facility] Medical Group Cardiology [address] [facility] [address] [place] [address] Debbie Jerez MD [address] [facility] [address] [place] [address] Social History Tobacco Use Types Packs/Day Years Used Date Smoking Tobacco: Former Smokeless Tobacco: Never Sex and Gender Information Value Date Recorded Sex Assigned at Not on file Legal Sex Male 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
--- OUTSIDE RECORDS SUMMARY | 2024-07-30 20:40 | XMS_ITS | Encounter Summary ---
Author Organization [facility] Address [address] [facility] [address] [place] [address] Care Team Providers Care Volleyball Assembler Name Role Phone Tao Jeffers MD Primary Care Provider [phone] Encounter Details Date Type Department Care Team (Late st Contact Info) Description 01/21/2021 Orders Only [facility] Cardiology [address] [place] [address] ProviderSuzie MD [address] [place] [id number] Social History Tobacco Use Types Packs/Day Years Used Date Smoking Tobacco: Former Smokeless Tobacco: Never Sex and Gender Information Value Date Recorded Sex Assigned at Not on file 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
== END 2024-07-23 14:58 | disposition home or self-care (01) ==
PROVIDERS: Emergency Provider Nurse Practitioner; PCP Family Medicine
DX: J98.11 Atelectasis (principal); J18.9 Pneumonia, unspecified organism; I48.0 Paroxysmal atrial fibrillation; I11.0 Hypertensive heart disease with heart failure; I50.22 Chronic systolic (congestive) heart failure; E78.00 Pure hypercholesterolemia, unspecified; I42.9 Cardiomyopathy, unspecified; H54.61 Unqualified visual loss, right eye, normal vision left eye; Z79.01 Long term (current) use of anticoagulants; Z95.810 Presence of automatic (implantable) cardiac defibrillator; Z87.891 Personal history of nicotine dependence
CPT/HCPCS: 71046; 99213; G0463

== ENCOUNTER 2024-07-29 15:09 | Observation (INO) | payer MEDICARE, SELFPAY ==
--- NOTE | ~2024-07-29 | XR_ITS ---
XR chest 2V Ordering provider: Anna Haddad History: 84 years Male with . dyspnea, cough . Comparison: July 23, 2024 FINDINGS: MEDIASTINUM: The cardiac silhouette is slightly enlarged. Left bipolar pacemaker. LUNGS: No pneumothorax. Opacification in the left lung base with atelectasis versus pneumonia with pl eural effusion. Bilateral apical pleural thickening with calcification. OTHER: No free air under the diaphragm. Degenerative the spine. IMPRESSION: Left basilar atelectasis versus pneumonia with pleural effusion. Reviewed, dictated and finalized at location A. RAPHIC INFORMATION SYSTEM ANALYST
--- NOTE | ~2024-07-29 | US_ITS ---
US thoracentesis DATE: 07/30/2024 12:50 INDICATION: Left pleural effusion TECHNIQUE: The purpose of procedure, technique and contraindications including internal bleeding and pneumothorax and possible need for chest tube placement were discussed with the patient. The patient verbalized understanding and gave consent. An appropriate site for percutaneous intercostal access was identified sonographically at the postero lateral left chest. The skin was prepared with sterile Betadine. Sterile prep was applied. 4 cc 1% li docaine local anesthetic was administered to the skin and underlying subcutaneous tissues. A small sk in incision was made. A needle/catheter was introduced into the pleural space. Pleural fluid was evid ent at the hub of the catheter. 2 small tubes of pleural fluid were collected for laboratory analysis . Subsequently, 1000 CC of dark red left pleural fluid was evacuated by Vacutainer. The patient was very cooperative and tolerated the procedure very well without apparent application. COMPARISON: 07/30/2024 CT chest IMPRESSION: Uncomplicated sonographically guided percutaneous left thoracentesis yielding 1000 cc johnny k red pleural fluid Reviewed, dictated and finalized at Location [facility]. Reviewed, dictated and finalized at location A. ICES TECH IMPRESSION: Uncomplicated sonographically guided percutaneous left thoracentesi s yielding 1000 cc dark red pleural fluid
--- NOTE | ~2024-07-29 | XR_ITS ---
[id number] Ordering provider: Dillon Sewell History: 84 years Male with . Post thoracentesis . Comparison: July 29, 2024 FINDINGS: MEDIASTINUM: The cardiac silhouette is not enlarged. Left bipolar pacemaker. LUNGS: No effusions or pneumothorax. Left basilar atelectasis versus pneumonia. Emphysematous changes. OTHER: No free air under the diaphragm. Degenerative spine. IMPRESSION: Left basilar atelectasis versus pneumonia. Underlying edema. Reviewed, dictated and finalized at location A. TER OPERATOR
--- NOTE | ~2024-07-29 | XR_ITS ---
XR chest 1V portable DATE: 07/31/2024 08:04 INDICATION: reevaluate pleural effusion post thoracentesis TECHNIQUE: Portable upright AP chest 07/31/2024 at 0755 hours COMPARISON: 07/30/2024 CT chest 07/29/2024 2 view chest FINDINGS: Small residual left pleural effusion, significant weight improved since 07/29/2024. No eviden ce of iatrogenic pneumothorax. Bilateral lower lung infiltrates and/or atelectasis. Mild bilateral apical capping and calcification. Left sided triple lead AICD/pacemaker device. Normal heart size. Coronary artery calcification Aortic calcification. Osteopenia. IMPRESSION: No evidence of pneumothorax one day post left thoracentesis; significantly diminished lef t pleural effusion compared to 07/29/2024 Small left pleural effusion Bibasilar infiltrate and/or atelectasis Reviewed, dictated and finalized at location A. S AND MERCHANDISING REPRESENTATIVE IMPRESSION: No evidence of pneumothorax one day post left thoracentesis; signif icantly diminished left pleural effusion compared to 07/29/2024 Small left pleural effusion Bibasilar infiltrate and/or atelectasis
--- NOTE | ~2024-07-29 | CT_ITS ---
CT diagnostic chest wo con Ordering provider: Dillon Sewell MD History: 84 years Male with . shortness of breath . Comparison: May 08, 2021 Technique: CT chest without IV contrast. Radiation reduction technique utilized.The dose-length product was 233.29 mGy-cm. FINDINGS: VISUALIZED THORACIC INLET: Normal. Left pacemaker is noted. MEDIASTINUM: Aorta/coronary arteries: Mild atheromatous disease. Heart/other: The heart is not enlarged. Lymph nodes: No mediastinal or hilar adenopathy. LUNGS: Left pleural effusion which is increased compared to previous study. Adjacent atelectasis vers us pneumonia is seen. No pulmonary masses. No pneumothorax. Nodular pleural thickening is seen in the left hemithorax which is new. Reticulonodular airspace disease seen in the right lower lobe which is also new suggestive of pneumonia or bronchiolitis. Nodule seen in the right lower lobe is unchanged and measures 6 mm.. Underlying emphysematous changes. Nodule also seen in the middle lobe but may be atelectatic area. Pleural calcification the left apical area. VISUALIZED UPPER ABDOMEN: , the visualized upper abdomen is normal. MUSCULOSKELETAL: Soft tissues: The superficial soft tissues are normal. Bones: Age appropriate degenerative changes of the spine. IMPRESSION: 1. Large left pleural effusion with adjacent atelectasis versus pneumonia. 2. Nodular pleural thickening in the left hemithorax with pleural calcification seen in the apical a reas. 3. Nodule in the right lower lobe and middle lobe unchanged. 4. Bronchiolitis versus early pneumonia in the right lung base. Clinical correlation advised. Reviewed, dictated and finalized at location A. ETING EDUCATION TEACHER IMPRESSION: 1. Large left pleural effusion with adjacent atelectasis versus pneumonia. 2. Nodular pleural thickening in the left hemithorax with pleural calcificatio n seen in the apical areas. 3. Nodule in the right lower lobe and middle lobe unchanged. 4. Bronchiolitis versus early pneumonia in the right lung base. Clinical corre lation advised.
[2024-07-29 15:16] VITALS: BP 138/76; PULSE 70; RESP 18; TEMP 36.3; O2SAT 95
--- NOTE | 2024-07-29 15:40 | ECG_ITS ---
Test Date: 2024-07-30 01:32:58 Measurements Intervals [place] Rate: 69 P: 0 RI: 0 QRS: 215 QRSD: 139 T: 24 QT: 423 QTc: 456 Interpretive Statements ELECTRONIC VENTRICULAR PACEMAKER No previous ECG available for comparison Electronically Signed On 08-02-2024 17:53:54 VETERINARY INSPECTOR by Larry Pak M.D.
--- NOTE | 2024-07-29 15:41 | ED_ITS ---
HPI - SOB/Dyspnea General Chief Complaint: Shortness of Breath/Dyspnea <Anna Haddad PA-C - Last Filed: 07/29/24 15:47> Stated Complaint: SOB x1 week <Anna Haddad PA-C - Last Filed: 07/29/24 15:47> Time Seen by Provider: 07/30/24 01:32 <Anna Haddad PA-C - Last Filed: 07/29/24 15:47> Focused HPI: 84 y/o M w/ a PMHx of colon cancer, afib on eliquis, emphysema, CHF, HLD presents to the ED for dyspnea x1 week. Pt states his sx started with a cold and cough. He went to urgent care 6 days ago, they performed an xray and reported a small PNA. He was prescribed Augmentin and azithromycin and has not missed any doses. States he had minimal improvement in size PCP on Thursday and was prescribed 20 mg of furosemide which she has been taking without improvement. He states his cough is not improved but is still productive white sputum. He states he feels very short of breath with exertion. Denies BLE, fevers, chest pain. Pt states he smokes 6 cigarettes a day. States he has been smoking for all of his life. States he does not have a inhaler. He has a pacemaker. GENERAL: Well-appearing, well-nourished, and in no acute distress. HEAD: Normocephalic, atraumatic. CHEST: Minimal expiratory wheezing in the lung bases. No respiratory distress. Coughing on exam HEART: Regular rate and rhythm.? NEURO: ?Alert and oriented x3. Patient screened in triage and initial orders placed.? ?Additional care and disposition to be based upon?diagnostic testing and treatment. <Anna Haddad PA-C - Last Filed: 07/29/24 15:47> History of Present Illness HPI Narrative: Patient 84-year-old gentleman who presents emergency department with chief complaint of shortness of breath for the last week. The patient reports that he has had a cough and cold symptoms the patient was treated with Augmentin and azithromycin the patient reports he completed the Zithromax and reports that he still taking the Augmentin reports his primary doctor started him on some Lasix and reports that he still gets shortness of breath worse with exertion. The patient reports no peripheral edema denies chest pain the patient reports that he has prior history of AFib has had an ablation and has a pacemaker in place. < Dillon Sewell MD - Last Filed: 07/30/24 05:16> Related Data Home Medications: Home Medications ?Medication ?Instructions ?Recorded ?Confirmed ?Last Taken ?Type cetirizine 10 mg capsule (Zyrtec) 10 mg PO DAILY 01/01/21 07/26/24 05/06/21 History polyethylene glycol 3350 17 17 g PO DAILY 01/01/21 07/26/24 05/06/21 History gram/dose oral powder (Miralax) apixaban 5 mg tablet (Eliquis) 5 mg PO BID 01/30/21 07/26/24 05/06/21 History sacubitril 49 mg-valsartan 51 mg 1 tablet PO BID 05/13/24 07/26/24 Unknown History tablet (Entresto) <Anna Haddad PA-C - Last Filed: 07/29/24 15:47> Allergies/Adverse Reactions: Allergies Allergy/AdvReac Type Severity Reaction Status Date / Time tetracycline Allergy Severe Swelling Verified 07/26/24 10:49 of Lip/Tongue/Throat codeine Allergy Intermediate LIPS SWELL Verified 07/26/24 10:49 Sulfa (Sulfonamide Allergy Intermediate LIPS Verified 07/26/24 10:49 Antibiotics) SWELLING Wheat AdvReac Mild Itching Uncoded 07/26/24 10:49 <Anna Haddad PA-C - Last Filed: 07/29/24 15:47> Review of Systems 2 Review of Systems: A 10 system review of systems was completed on the patient and is negative except for what is stated in the HPI. Nursing and ancillary documentation was reviewed. <Dillon Sewell MD - Last Filed: 07/30/24 05:16> [facility] Past Medical History Medical History: Medical History Personal history of colon cancer Nicotine dependence, cigarettes, uncomplicated Paroxysmal atrial fibrillation Vasomotor rhinitis Emphysema, unspecified Presence of automatic (implantable) cardiac defibrillator Pulmonary hypertension due to lung diseases and hypoxia Hypertensive heart disease with heart failure Chronic systolic (congestive) heart failure Hypercholesterolemia History of pacemaker Blindness of right eye Cardiomyopathy <Anna Haddad PA-C - Last Filed: 07/29/24 15:47> Surgical History Surgical History: Surgical History H/O colectomy History of tonsillectomy History of appendectomy <Anna Haddad PA-C - Last Filed: 07/29/24 15:47> Family History Family History: Family History Mother Cancer Father Cirrhosis Alcohol abuse <LOUIS Dubois Last Filed: 07/29/24 15:47> Social History Social History: Social History Social History: The patient is semi retired. He is a . He is listed as a full code. The patient denies any alcohol. He states that he is a former smoker. 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 HEAD: Normocephalic, atraumatic. EYES: PERRLA and EOMI. ENT: Nares clear, no rhinorrhea or epistaxis. Mucous membranes moist. NECK: Supple. CHEST: Clear to auscultation. No respiratory distress. HEART: Regular rate and rhythm. No murmur heard. Normal peripheral pulses. ABDOMEN: Soft, nontender, nondistended, normal active bowel sounds. EXTREMITIES: Normal range of motion. No edema. SKIN: Warm, dry, no rash. NEURO: No focal deficits. Alert and oriented x3. PSYCH: Normal mood and affect. <Dillon Sewell MD - Last Filed: 07/30/24 05:16> Course Vital Signs Vital signs: Vital Signs Temperature 36.3 C L 07/29/24 15:16 Pulse Rate 70 07/29/24 15:16 Respiratory Rate 18 07/29/24 15:16 Blood Pressure 138/76 07/29/24 15:16 Pulse Oximetry 95 07/29/24 15:16 Temperature 36.7 C 07/30/24 03:45 Pulse Rate 70 07/30/24 03:45 Respiratory Rate 16 07/30/24 03:45 Blood Pressure 162/82 H 07/30/24 03:45 Pulse Oximetry 96 07/30/24 03:45 Oxygen Delivery Room Air 07/30/24 01:51 <Anna Haddad PA-C - Last Filed: 07/29/24 15:47> Vital Signs Temperature 36.3 C L 07/29/24 15:16 Pulse Rate 70 07/29/24 15:16 Respiratory Rate 18 07/29/24 15:16 Blood Pressure 138/76 07/29/24 15:16 Pulse Oximetry 95 07/29/24 15:16 Temperature 36.7 C 07/30/24 03:45 Pulse Rate 70 07/30/24 03:45 Respiratory Rate 16 07/30/24 03:45 Blood Pressure 162/82 H 07/30/24 03:45 Pulse Oximetry 96 07/30/24 03:45 Oxygen Delivery Room Air 07/30/24 01:51 <Dillon Sewell MD - Last Filed: 07/30/24 05:16> MDM - SOB/Dyspnea MDM Narrative Medical decision making narrative: Differential diagnosis includes pneumonia, CHF, pleural effusion CT scan showed a large pleural effusion. Laboratory studies were obtained which showed a normal CBC CMP was within normal limits troponin was negative BNP was 684 COVID flu and RSV were negative <Dillon Sewell MD - Last Filed: 07/30/24 05:16> Lab Data Result diagrams: 07/29/24 21:15 07/29/24 21:15 <Anna Haddad PA-C - Last Filed: 07/29/24 15:47> Labs: Lab Results 07/29/24 07/30/24 Range/Units 21:15 01:33 WBC 6.9 (4.5-10.0) K/mm3 RBC 4.59 L (4.6-6.20) M/mm3 Hgb 14.3 (14.0-18.0) g/dL Hct 42.5 (42.0-52.0) % MCV 92.6 (80-100) fl MCH 31.2 (26-34) pg MCHC 33.6 (32-36) g/dl RDW 12.8 (11.5-14.5) % Plt Count 204 (150-375) k/mm3 MPV 10.8 H (7.4-10.4) fl Immature Gran % (Auto) 0.3 (0-0.5) % Neut % (Auto) 71.7 (45.5-73.1) % Lymph % (Auto) 17.1 L (18.3-44.2) % Cassia % (Auto) 8.6 H (2.6-8.5) % Eos % (Auto) 2.0 (0-4.4) % Baso % (Auto) 0.3 (0.2-1.2) % Lymph # (Auto) 1.18 (0.9-3.2) K/mm3 Cassia # (Auto) 0.6 (0.1-0.6) K/mm3 Eos # (Auto) 0.1 (0-0.3) K/mm3 Baso # (Auto) 0.0 (0.0-0.1) K/mm3 Abs Immat Gran (auto) 0.02 (0.00-0.031) K/mm3 Absolute Neuts (auto) 4.9 (1.3-6.7) K/mm3 Absolute Nucleated RBC 0.000 (0.0-0.012) K/mm3 Nucleated RBC % 0.0 (0.0-0.2) % PT 17.5 H (11.1-14.7) Seconds INR 1.4 APTT 37.1 H (22.3-36.8) Seconds Sodium 133 L (137-145) mmol/L Potassium 4.3 (3.4-5.0) mmol/L Chloride 100 (98-107) mmol/L Carbon Dioxide 29 (22-30) mmol/L Anion Gap 4 (4-12) mmol/L BUN 21 H (9-20) mg/dL Creatinine 0.80 (0.7-1.3) mg/dL Estim Creat Clear Calc 65 ml/min Estimated GFR > 60 (59 - ) Glucose 97 (65-110) mg/dL Calcium 9.1 (8.4-10.2) mg/dL Magnesium 1.9 (1.6-2.3) mg/dL Total Bilirubin 1.3 (0.2-1.3) mg/dL AST 28 (17-59) U/L ALT 25 (6-50) U/L Alkaline Phosphatase 106 (38-126) U/L Troponin I < 0.012 (0.000-0.034) ng/mL NT-Pro-B Natriuret Pep 684 H (19.9-100) pg/mL Total Protein 7.0 (6.3-8.2) g/dL Albumin 3.9 (3.5-5.1) g/dL Influenza A (RT-PCR) Negative (Negative) Influenza B (RT-PCR) Negative (Negative) RSV (RT-PCR) Negative (Negative) SARS-CoV-2 RNA (RT-PCR) Negative (Negative) <Anna Haddad PA-C - Last Filed: 07/29/24 15:47> Lab Results 07/29/24 07/30/24 Range/Units 21:15 01:33 WBC 6.9 (4.5-10.0) K/mm3 RBC 4.59 L (4.6-6.20) M/mm3 Hgb 14.3 (14.0-18.0) g/dL Hct 42.5 (42.0-52.0) % MCV 92.6 (80-100) fl MCH 31.2 (26-34) pg MCHC 33.6 (32-36) g/dl RDW 12.8 (11.5-14.5) % Plt Count 204 (150-375) k/mm3 MPV 10.8 H (7.4-10.4) fl Immature Gran % (Auto) 0.3 (0-0.5) % Neut % (Auto) 71.7 (45.5-73.1) % Lymph % (Auto) 17.1 L (18.3-44.2) % Cassia % (Auto) 8.6 H (2.6-8.5) % Eos % (Auto) 2.0 (0-4.4) % Baso % (Auto) 0.3 (0.2-1.2) % Lymph # (Auto) 1.18 (0.9-3.2) K/mm3 Cassia # (Auto) 0.6 (0.1-0.6) K/mm3 Eos # (Auto) 0.1 (0-0.3) K/mm3 Baso # (Auto) 0.0 (0.0-0.1) K/mm3 Abs Immat Gran (auto) 0.02 (0.00-0.031) K/mm3 Absolute Neuts (auto) 4.9 (1.3-6.7) K/mm3 Absolute Nucleated RBC 0.000 (0.0-0.012) K/mm3 Nucleated RBC % 0.0 (0.0-0.2) % PT 17.5 H (11.1-14.7) Seconds INR 1.4 APTT 37.1 H (22.3-36.8) Seconds Sodium 133 L (137-145) mmol/L Potassium 4.3 (3.4-5.0) mmol/L Chloride 100 (98-107) mmol/L Carbon Dioxide 29 (22-30) mmol/L Anion Gap 4 (4-12) mmol/L BUN 21 H (9-20) mg/dL Creatinine 0.80 (0.7-1.3) mg/dL Estim Creat Clear Calc 65 ml/min Estimated GFR > 60 (59 - ) Glucose 97 (65-110) mg/dL Calcium 9.1 (8.4-10.2) mg/dL Magnesium 1.9 (1.6-2.3) mg/dL Total Bilirubin 1.3 (0.2-1.3) mg/dL AST 28 (17-59) U/L ALT 25 (6-50) U/L Alkaline Phosphatase 106 (38-126) U/L Troponin I < 0.012 (0.000-0.034) ng/mL NT-Pro-B Natriuret Pep 684 H (19.9-100) pg/mL Total Protein 7.0 (6.3-8.2) g/dL Albumin 3.9 (3.5-5.1) g/dL Influenza A (RT-PCR) Negative (Negative) Influenza B (RT-PCR) Negative (Negative) RSV (RT-PCR) Negative (Negative) SARS-CoV-2 RNA (RT-PCR) Negative (Negative) <Dillon Sewell MD - Last Filed: 07/30/24 05:16> Discharge Plan Discharge Clinical Impression: Dyspnea, Pleural effusion <Anna Haddad PA-C - Last Filed: 07/29/24 15:47> Patient Disposition: Still a Patient <Anna aHddad PA-C - Last Filed: 07/29/24 15:47> Condition: Stable <Anna Haddad PA-C - Last Filed: 07/29/24 15:47> Patient Language: Belarusian <LOUIS Dubois Last Filed: 07/29/24 15:47> Prescriptions: No Action amoxicillin-pot clavulanate 875-125 mg tablet 1 tablet PO Q12H Qty: 14 0RF azithromycin 250 mg tablet See Rx Instructions PO .COMPLEX Qty: 6 0RF Rx Instructions: take 500 mg today (day 1), then 250 mg for 4 days (days 2-5) Entresto 49-51 mg tablet 1 tablet PO BID ipratropium bromide 21 mcg (0.03 %) spray,non-aerosol 2 spray intranasal BID Qty: 30 1RF polyethylene glycol 3350 [Miralax] 17 gram/dose Powder 17 g PO DAILY Zyrtec 10 mg Capsule 10 mg PO DAILY metoprolol succinate 50 mg Tablet Extended Release 24 Hr 150 mg PO QPM 30 Days Qty: 90 3RF aspirin 81 mg Tablet,Delayed Release (Dr/Ec) 81 mg PO QAM Qty: 30 0RF atorvastatin 40 mg Tablet 80 mg PO DAILY Qty: 30 3RF Eliquis 5 mg Tablet 5 mg PO BID tamsulosin 0.4 mg capsule See Rx Instructions .ROUTE .COMPLEX Qty: 90 1RF Dose Instruction: TAKE 1 CAPSULE BY MOUTH EVERY DAY Rx Instructions: TAKE 1 CAPSULE BY MOUTH EVERY DAY furosemide 20 mg tablet See Rx Instructions .ROUTE .COMPLEX Qty: 90 0RF Dose Instruction: TAKE 1 TABLET BY MOUTH EVERY MORNING Rx Instructions: TAKE 1 TABLET BY MOUTH EVERY MORNING <Anna Haddad PA-C - Last Filed: 07/29/24 15:47> Follow-up/Referrals: Tao Jeffers MD [Primary Care Provider] - <Anna Haddad PA-C - Last Filed: 07/29/24 15:47> Time of Disposition: 05:16 <Anna Haddad PA-C - Last Filed: 07/29/24 15:47> 05:16 <Dillon Sewell MD - Last Filed: 07/30/24 05:16>
[2024-07-29 15:55] VITALS: PULSE 80; RESP 18
[2024-07-29] MEDS: IPRATROPIUM 0.5 MG/ALBUTEROL SULFATE 2.5 MG AMPUL.NEB 3 ML INHALATION (15:55)
[2024-07-29 16:05] VITALS: PULSE 82; RESP 18
[2024-07-29 21:47] LABS: Basophils Percent Auto 0.3 % (0.2-1.2); Eosinophils Absolute Auto 0.1 K/mm3 (0-0.3); Hematocrit 42.5 % (42.0-52.0); Hemoglobin 14.3 g/dL (14.0-18.0); Immature Granulocyte Absolute 0.02 K/mm3 (0.00-0.031); Immature Granulocyte Percent A 0.3 % (0-0.5); Lymphocytes Absolute Auto 1.18 K/mm3 (0.9-3.2); Lymphocytes Percent Auto 17.1 % (18.3-44.2); Mean Corpuscular HGB Conc 33.6 g/dl (32-36); Mean Corpuscular Hemoglobin 31.2 pg (26-34); Mean Corpuscular Volume 92.6 fl (80-100); Mean Platelet Volume 10.8 fl (7.4-10.4); Monocytes Absolute Auto 0.6 K/mm3 (0.1-0.6); Monocytes Percent Auto 8.6 % (2.6-8.5); Neutrophils Absolute Auto 4.9 K/mm3 (1.3-6.7); Neutrophils Percent Auto 71.7 % (45.5-73.1); Platelet Count Result 204 k/mm3 (150-375); Red Blood Count 4.59 M/mm3 (4.6-6.20); Red Cell Distribution Width 12.8 % (11.5-14.5); White Blood Count 6.9 K/mm3 (4.5-10.0)
[2024-07-29 21:58] LABS: INR 1.4; Partial Thromboplastin Time 37.1 Seconds (22.3-36.8); Prothrombin Time 17.5 Seconds (11.1-14.7)
[2024-07-29 22:08] LABS: Alanine Aminotransferase 25 U/L (6-50); Albumin Level 3.9 g/dL (3.5-5.1); Alkaline Phosphatase 106 U/L (38-126); Anion Gap 4 mmol/L (4-12); Aspartate Amino Transferase 28 U/L (17-59); Bilirubin,Total 1.3 mg/dL (0.2-1.3); Blood Urea Nitrogen 21 mg/dL (9-20); Calcium 9.1 mg/dL (8.4-10.2); Carbon Dioxide 29 mmol/L (22-30); Chloride 100 mmol/L (98-107); Estimated CRCL calculation 65 ml/min; Estimated Glomerular Filt Rate > 60; Glucose 97 mg/dL (65-110); Magnesium 1.9 mg/dL (1.6-2.3); Potassium 4.3 mmol/L (3.4-5.0); Sodium 133 mmol/L (137-145)
[2024-07-29 22:19] LABS: NT Pro B Type Natriuretic Pept 684 pg/mL (19.9-100); Troponin I < 0.012 ng/mL (0.000-0.034)
[2024-07-30] VITALS (9 sets, daily range): BP systolic 144–169; BP diastolic 79–95; PULSE 70; RESP 16–18; TEMP 36.4–36.8; O2SAT 94–98; BMI 24.3
--- NOTE | 2024-07-30 01:59 | PC.NURSE ---
Patient did a walking pulse oximeter test. Patient was continuously in the mid to upper 90s during test. Notified EDP Dr. Sewell.
[2024-07-30 02:25] LABS: Influenza A QL RT-PCR Negative (Negative); Influenza B QL RT-PCR Negative (Negative); RSV RNA, RT-PCR Negative (Negative); SARS-CoV-2 RNA PCR Negative (Negative)
--- NOTE | 2024-07-30 06:39 | ADMGEN ---
This patient, Lm Jimenez, was admitted to [facility] Room 322-01. Patient/family oriented to hospital policies and general routines including ID bracelet, bed and alarms, visiting hours, pain management, procedures, bathroom and other care routines, personal items, smoking policy, room service/diet, and visiting hours. Information on how to activate the Rapid Response Team has been discussed. Patient/Family are encouraged to report perceived risks to care and to ask questions if they do not understand what they are told or what they should do.
--- NOTE | 2024-07-30 11:08 | PM.IMHP ---
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 He had PCI in 1999. When he presented to [facility] on January 01, 2021 he had progressively worsening fatigue and exertional dyspnea and had an elevated heart rate in the 150s. He was found to be in atrial fibrillation with a rapid ventricular response. He had cardioversion at that time but reverted back to atrial fib. On June 11, 2021 he had radiofrequency catheter ablation of the AV junction with implantation of a biventricular ICD device. He had been battling cold for about a week. Normally , [employer] works but not this time. He went to Urgent Care on Thursday. He was diagnosed with pneumonia and started on an azithromycin and augmentin. He is not feeling any better at all since starting the antibiotics. Cough not improved. denies BLE, fevers, chest pain. He continued to smoke 6 cigarettes a day- as he had been smoking his whole life. In ED: CT scan showed a large pleural effusion. Laboratory studies were obtained which showed a normal CBC CMP was within normal limits troponin was negative BNP was 684 COVID flu and RSV were negative. Differential diagnosis includes pneumonia, CHF, pleural effusion 1/4- pt is seen and examined. he is alert, oriented, in no distress. Review of Systems Review of Systems: All systems reviewed & are unremarkable except as noted in HPI and below PMFSH Past Medical History Medical History Personal history of colon cancer Nicotine dependence, cigarettes, uncomplicated Paroxysmal atrial fibrillation Vasomotor rhinitis Emphysema, unspecified Presence of automatic (implantable) cardiac defibrillator 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 He is a . He is listed as a full code. The patient denies any alcohol. He states that he is a former smoker. Smoking status: Current every day smoker Tobacco type: cigarettes Second hand tobacco smoke exposure: Yes Alcohol intake: current Drinks per week: 3 Alcohol use details: occasional Substance use: never Substance use type: does not use Last use: 2000 Do You Feel Safe in your Home?: Yes Lack of Transportation: No Lack of Food: Never True Current Housing: I Have Housing Concerned About Future Housing: No Difficulty Paying Gas/Electric Bills: No Difficulty Paying for Meds: No Currently Unemployed: No Education: Associate Degree Difficulty w/ Childcare or Family Care: No Living arrangements: alone Occupation/Education: retired Additional occupation/education comments: 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 Gender identity (if verbalized by the patient): Male Sexual Orientation (if Verbalized by the Patient): Straight or Heterosexual Spiritual care concerns: No Meds Home Medications and Allergies Home Medications ?Medication ?Instructions ?Recorded ?Confirmed ?Type cetirizine 10 mg capsule (Zyrtec) 10 mg PO DAILY 01/01/21 07/30/24 History polyethylene glycol 3350 17 17 g PO DAILY 01/01/21 07/30/24 History gram/dose oral powder (Miralax) apixaban 5 mg tablet (Eliquis) 5 mg PO BID 01/30/21 07/30/24 History aspirin 81 mg tablet,delayed 81 mg PO QAM #30 tabs 04/16/21 07/30/24 Rx release atorvastatin 40 mg tablet 80 mg (2 x 40 mg) PO DAILY #30 tabs 04/17/21 07/30/24 Rx tamsulosin 0.4 mg capsule See Rx Instructions .Route 02/25/24 07/30/24 Rx .COMPLEX #90 caps ipratropium bromide 21 mcg (0.03 2 spray intranasal BID #30 mL 05/13/24 07/30/24 Rx %) nasal spray sacubitril 49 mg-valsartan 51 mg 1 tablet PO BID 05/13/24 07/30/24 History tablet (Entresto) furosemide 20 mg tablet See Rx Instructions .Route 07/26/24 07/30/24 Rx .COMPLEX #90 tabs metoprolol succinate 50 mg 50 mg PO QPM 07/30/24 07/30/24 History tablet,extended release 24 hr Allergies Allergy/AdvReac Type Severity Reaction Status Date / Time tetracycline Allergy Severe Swelling Verified 07/30/24 06:58 of Lip/Tongue/Throat codeine Allergy Intermediate LIPS SWELL Verified 07/30/24 06:58 Sulfa (Sulfonamide Allergy Intermediate LIPS Verified 07/30/24 06:58 Antibiotics) SWELLING Wheat AdvReac Mild Itching Uncoded 07/30/24 06:58 Vital Signs Vital Signs - 24 hr 07/29/24 15:16 07/29/24 15:55 07/29/24 16:05 Temperature 97.3 F L Pulse Rate 70 80 82 Respiratory Rate 18 18 18 Blood Pressure 138/76 Pulse Oximetry 95 Oxygen Delivery 07/30/24 01:51 07/30/24 01:51 07/30/24 01:51 Temperature Pulse Rate 70 Respiratory Rate Blood Pressure Pulse Oximetry 94 98 Oxygen Delivery Room Air Room Air 07/30/24 01:52 07/30/24 03:45 07/30/24 05:21 Temperature 97.9 F 98.0 F 98.3 F Pulse Rate 70 70 70 Respiratory Rate 18 16 16 Blood Pressure 148/95 H 162/82 H 168/92 H Pulse Oximetry 95 96 96 Oxygen Delivery 07/30/24 06:32 Temperature 97.5 F L Pulse Rate 70 Respiratory Rate 18 Blood Pressure 150/79 H Pulse Oximetry 95 Oxygen Delivery H&P: Results Labs Labs: Short CBC 07/29/24 Range/Units 21:15 WBC 6.9 (4.5-10.0) K/mm3 Hgb 14.3 (14.0-18.0) g/dL Hct 42.5 (42.0-52.0) % Plt Count 204 (150-375) k/mm3 BMP 07/29/24 21:15 Sodium 133 L Potassium 4.3 Chloride 100 Carbon Dioxide 29 BUN 21 H Creatinine 0.80 Glucose 97 Calcium 9.1 Cardiac Enzymes 07/29/24 Range/Units 21:15 Troponin I < 0.012 (0.000-0.034) ng/mL Liver Function 07/29/24 Range/Units 21:15 Total Bilirubin 1.3 (0.2-1.3) mg/dL AST 28 (17-59) U/L ALT 25 (6-50) U/L Alkaline Phosphatase 106 (38-126) U/L Albumin 3.9 (3.5-5.1) g/dL Assessment and Plan Assessment and plan (1) Hypertensive heart disease with heart failure: Code(s): I11.0 - Hypertensive heart disease with heart failure Status: Acute Assessment and Plan: metoprolol 150 mg, entresto, furosemide (not taking) asa, statin He has chronic heart failure with reduced ejection fraction. His ejection fraction was only about 30% on the SANDRA done on May 10, 2021. Symptoms had improved dramatically and his ejection fraction improved to 45% on his last echocardiogram. Since a recent cold he suddenly has increased heart failure symptoms including shortness of breath with minimal exertion, orthopnea, and cough productive of white sputum. Treatment is currently Entresto, metoprolol and furosemide, although he has not been taking furosemide. Resume furosemide 20 mg daily during his last pcp visit on 07/26 -will repeat echo - ordered (2) Presence of automatic (implantable) cardiac defibrillator: Code(s): Z95.810 - Presence of automatic (implantable) cardiac defibrillator Status: Acute (3) Paroxysmal atrial fibrillation: Code(s): I48.0 - Paroxysmal atrial fibrillation Status: Acute Assessment and Plan: eliquis- will continue (4) Hypercholesterolemia: Code(s): E78.00 - Pure hypercholesterolemia, unspecified Status: Acute (5) Dyspnea: Code(s): R06.00 - Dyspnea, unspecified Status: Acute (6) Pleural effusion: Code(s): J90 - Pleural effusion, not elsewhere classified Status: Acute Assessment and Plan: chf vs pneumonia vs pleural effusion thoracentesis is ordered will start on iv antibiotics and wait for cultures monitor resp status Quality VTE Prophylaxis VTE prophylaxis: pharmacologic ordered
[2024-07-30 12:21] LABS: Appearance Pleural Fluid Hazy (Clear); Color Pleural Fluid Red (Colorless); Lymphocytes Pleural Fluid 82 %; Macrophages Pleural Fluid 5 %; Mesothelial Cells Pleural Flui 3 %; Neutrophils Pleural Fluid 10 % (0-25); Nucleated Cell Pleural Fluid 2661 /uL (0-1000); Pleural fluid source Pleural fluid; RBC Pleural Fluid 24000 /uL (0-10000)
[2024-07-30] MEDS: ASPIRIN 81 MG ENTERIC TABLET PO (14:03)
[2024-07-30] MEDS: TAMSULOSIN HCL 0.4 MG CAPSULE BY MOUTH (14:03)
[2024-07-30] MEDS: LORATADINE 10 MG TABLET PO (14:03)
[2024-07-30] MEDS: APIXABAN 5 MG TABLET PO ×2 (14:03→20:36)
[2024-07-30] MEDS: FUROSEMIDE 20 MG TABLET BY MOUTH (14:03)
[2024-07-30] MEDS: polyethylene glycoL 3350 17 GM POWD.PACK PO (14:03)
[2024-07-30] MEDS: AZITHROMYCIN 500 MG/NS 250 ML 500 MG/250 ML BAG 250 MG IVPB (14:04)
[2024-07-30] MEDS: ATORVASTATIN 40 MG TABLET 80 MG PO (14:09)
[2024-07-30] MEDS: SACUBITRIL/VALSARTAN 49-51 MG TABLET 1 TABLET PO ×2 (15:56→20:36)
[2024-07-30 16:36] LABS: pH Pleural Fluid > 7.500 (7.210-7.500)
[2024-07-30] MEDS: METOPROLOL SUCCINATE EXT REL 50 MG TABCR PO (17:47)
[2024-07-31 05:19] VITALS: BP 149/84; PULSE 70; RESP 18; TEMP 37.2; O2SAT 94
[2024-07-31] MEDS: ATORVASTATIN 40 MG TABLET 80 MG PO (09:35)
[2024-07-31] MEDS: AZITHROMYCIN 500 MG/NS 250 ML 500 MG/250 ML BAG 250 MG IVPB (09:35)
[2024-07-31] MEDS: SACUBITRIL/VALSARTAN 49-51 MG TABLET 1 TABLET PO (09:35)
[2024-07-31] MEDS: TAMSULOSIN HCL 0.4 MG CAPSULE BY MOUTH (09:35)
[2024-07-31] MEDS: FUROSEMIDE 20 MG TABLET BY MOUTH (09:36)
[2024-07-31] MEDS: APIXABAN 5 MG TABLET PO (09:36)
[2024-07-31] MEDS: LORATADINE 10 MG TABLET PO (09:36)
[2024-07-31] MEDS: polyethylene glycoL 3350 17 GM POWD.PACK PO (09:36)
[2024-07-31] MEDS: ASPIRIN 81 MG ENTERIC TABLET PO (09:36)
[2024-07-31] MEDS: IPRATROPIUM NASAL SPRAY 0.03% 15 ML BOTTLE 2 SPRAY NASAL (09:36)
--- NOTE | 2024-07-31 12:10 | PM.IMPN ---
Progress Note: A&P Assessment and Plan (1) Hypertensive heart disease with heart failure: Code(s): I11.0 - Hypertensive heart disease with heart failure Status: Acute Assessment and Plan: metoprolol 150 mg, entresto, furosemide (not taking) asa, statin He has chronic heart failure with reduced ejection fraction. His ejection fraction was only about 30% on the SANDRA done on May 10, 2021. Symptoms had improved dramatically and his ejection fraction improved to 45% on his last echocardiogram. Since a recent cold he suddenly has increased heart failure symptoms including shortness of breath with minimal exertion, orthopnea, and cough productive of white sputum. Treatment is currently Entresto, metoprolol and furosemide, although he has not been taking furosemide. Resume furosemide 20 mg daily during his last pcp visit on 07/26 -will repeat echo - ordered (2) Presence of automatic (implantable) cardiac defibrillator: Code(s): Z95.810 - Presence of automatic (implantable) cardiac defibrillator Status: Acute (3) Paroxysmal atrial fibrillation: Code(s): I48.0 - Paroxysmal atrial fibrillation Status: Acute Assessment and Plan: eliquis- will continue (4) Hypercholesterolemia: Code(s): E78.00 - Pure hypercholesterolemia, unspecified Status: Acute (5) Dyspnea: Code(s): R06.00 - Dyspnea, unspecified Status: Acute (6) Pleural effusion: Code(s): J90 - Pleural effusion, not elsewhere classified Status: Acute Assessment and Plan: chf vs pneumonia vs pleural effusion thoracentesis is ordered will start on iv antibiotics and wait for cultures monitor resp status Subjective Date/time seen: 07/31/24 12:10 Interval history: Narrative: 84 y.o male with PMH/o colon ca, nicotine Nicotine dependence, cigarettes, uncomplicated, Paroxysmal atrial fibrillation, Vasomotor rhinitis, Emphysema, (implantable) cardiac defibrillator, Pulmonary hypertension due to lung diseases and hypoxia, Hypertensive heart disease with heart failure, Chronic systolic (congestive) heart failure, Hypercholesterolemia, History of pacemaker, Blindness of right eye, Cardiomyopathy. He had PCI in 1999. When he presented to [facility] on January 01, 2021 he had progressively worsening fatigue and exertional dyspnea and had an elevated heart rate in the 150s. He was found to be in atrial fibrillation with a rapid ventricular response. He had cardioversion at that time but reverted back to atrial fib. On June 11, 2021 he had radiofrequency catheter ablation of the AV junction with implantation of a biventricular ICD device. He had been battling cold for about a week. Normally , [employer] works but not this time. He went to Urgent Care on Thursday. He was diagnosed with pneumonia and started on an azithromycin and augmentin. He is not feeling any better at all since starting the antibiotics. Cough not improved. denies BLE, fevers, chest pain. He continued to smoke 6 cigarettes a day- as he had been smoking his whole life. In ED: CT scan showed a large pleural effusion. Laboratory studies were obtained which showed a normal CBC CMP was within normal limits troponin was negative BNP was 684 COVID flu and RSV were negative. Differential diagnosis includes pneumonia, CHF, pleural effusion 1- pt is seen and examined. he is alert, oriented, in no distress. 07/31- sob still with activity, just feeling bad overall on room air. c/o nausea Review of Systems Review of Systems: All systems reviewed & are unremarkable except as noted in HPI and below Objective Data Vital Signs Vital Signs: Vital Signs - 24 hr 07/30/24 14:06 07/30/24 17:47 07/30/24 20:10 Temperature 97.6 F 97.9 F Pulse Rate 70 70 70 Respiratory Rate 16 18 Blood Pressure 169/80 H 144/85 H Pulse Oximetry 95 95 Oxygen Delivery 07/30/24 20:35 07/31/24 05:19 Temperature 99.0 F Pulse Rate 70 70 Respiratory Rate 18 18 Blood Pressure 149/84 H Pulse Oximetry 95 94 Oxygen Delivery Room Air Intake/Output Intake/Output: Intake & Output 07/28/24 07/29/24 07/30/24 07/31/24 23:59 23:59 23:59 23:59 Intake Total 840 550 Output Total 1000 Balance -160 550 Meds/Results Medications: Active Medications Generic Name Dose Route Start Last Admin Trade Name Freq PRN Reason Stop Dose Admin Albuterol/Ipratropium 3 ml 07/31/24 14:00 Ipratropium 0.5 Mg/Albuterol Sulfate 2.5 Mg Ampul.Neb 3 Ml INHALATION Q6HRT ALINA Apixaban 5 mg 07/30/24 11:50 07/31/24 09:36 Apixaban 5 Mg Tablet PO 5 mg Q12HR ALINA Administration Aspirin 81 mg 07/30/24 11:50 07/31/24 09:36 Aspirin 81 Mg Enteric Tablet PO 81 mg QAM ALINA Administration Atorvastatin Calcium 80 mg 07/30/24 09:00 07/31/24 09:35 Atorvastatin 40 Mg Tablet PO 80 mg DAILY ALINA Administration Furosemide 20 mg 07/30/24 11:30 07/31/24 09:36 Furosemide 20 Mg Tablet BY MOUTH 20 mg QAM ALINA Administration Guaifenesin/Dextromethorphan 10 ml 07/31/24 12:08 Guaifenesin/Dextromethorphan 10 Ml Udc PO Q4H PRN Cough Azithromycin 500 mg in 250 mls @ 250 mls/hr 07/31/24 09:00 07/31/24 09:35 Zithromax IVPB 250 mls/hr Q24H ALINA Administration Ceftriaxone Sodium 1 gm in 50 mls @ 100 mls/hr 07/31/24 09:00 07/31/24 09:35 Rocephin 1 Gm/Ns 50 Ml IVPB 100 mls/hr Q24H ALINA Administration Ipratropium [place] 2 spray 07/30/24 17:00 07/31/24 09:36 Ipratropium Nasal [place] 0.03% 15 Ml Bottle NASAL 2 spray BID [facility] Administration Loratadine 10 mg 07/30/24 11:50 07/31/24 09:36 Loratadine 10 Mg Tablet PO 08/30/24 11:49 10 mg DAILY ALINA Administration Metoprolol Succinate 50 mg 07/30/24 18:00 07/30/24 17:47 Metoprolol Succinate Ext Rel 50 Mg Tabcr PO 50 mg QPM ALINA Administration Ondansetron HCl 4 mg 07/30/24 05:14 Ondansetron Inj 4 Mg/2 Ml Vial IV PUSH Q4H PRN Nausea Ondansetron HCl 4 mg 07/31/24 12:08 Ondansetron Inj 4 Mg/2 Ml Vial IV PUSH Q4H PRN Nausea And Vomiting Perflutren Lipid Microsphere 0 ml 07/30/24 11:48 Perflutren Lipid Microspheres 1.5 Ml Vial Diluted To 10 Ml Total Volume IV PUSH 08/02/24 11:48 ONCE PRN adequate visualization Protocol Polyethylene Glycol 17 gm 07/30/24 11:50 07/31/24 09:36 Polyethylene Glycol 3350 17 Gm Powd.Pack PO 17 gm DAILY ALINA Administration Sacubitril/Valsartan 1 tablet 07/30/24 11:50 07/31/24 09:35 Sacubitril/Valsartan 49-51 Mg Tablet PO 1 tablet Q12HR ALINA Administration Tamsulosin HCl 0.4 mg 07/30/24 11:50 07/31/24 09:35 Tamsulosin Hcl 0.4 Mg Capsule BY MOUTH 0.4 mg QAM ALINA Administration Radiology Results: ITS Impressions Chest CT 07/30/24 14:28 IMPRESSION: 1. Large left pleural effusion with adjacent atelectasis versus pneumonia. 2. Nodular pleural thickening in the left hemithorax with pleural calcification seen in the apical areas. 3. Nodule in the right lower lobe and middle lobe unchanged. 4. Bronchiolitis versus early pneumonia in the right lung base. Clinical correlation advised. Thoracentesis Ultrasound 07/31/24 06:34 IMPRESSION: Uncomplicated sonographically guided percutaneous left thoracentesis yielding 1000 cc dark red pleural fluid Chest X-Ray 07/31/24 11:01 IMPRESSION: No evidence of pneumothorax one day post left thoracentesis; significantly diminished left pleural effusion compared to 07/29/2024 Small left pleural effusion Bibasilar infiltrate and/or atelectasis Labs Labs: Laboratory Results - last 24 hr 07/30/24 10:54 Pleural Fluid Source Pleural fluid Pleural Color Red Pleural Appearance Hazy Pleural pH > 7.500 H Pleural RBC 26271 H Pleural Nuc Cells 2661 H Pleural Neutrophils 10 Pleural Lymphocytes 82 Pleural Macrophages 5 Pleural Mesothelial 3 Quality VTE Prophylaxis VTE prophylaxis: pharmacologic ordered
--- NOTE | 2024-07-31 12:18 | PM.DS ---
DS: Admitting Diagnosis Discharge Date 07/31 Admitting Diagnosis sob DS: Discharge Diagnosis Discharge Diagnosis (1) Hypertensive heart disease with heart failure: Code(s): I11.0 - Hypertensive heart disease with heart failure Status: Acute (2) Presence of automatic (implantable) cardiac defibrillator: Code(s): Z95.810 - Presence of automatic (implantable) cardiac defibrillator Status: Acute (3) Paroxysmal atrial fibrillation: Code(s): I48.0 - Paroxysmal atrial fibrillation Status: Acute (4) Hypercholesterolemia: Code(s): E78.00 - Pure hypercholesterolemia, unspecified Status: Acute (5) Dyspnea: Code(s): R06.00 - Dyspnea, unspecified Status: Acute (6) Pleural effusion: Code(s): J90 - Pleural effusion, not elsewhere classified Status: Acute DS: Summary Hospital Course Hospital Course: 84 y.o male with PMH/o colon ca, nicotine Nicotine dependence, cigarettes, uncomplicated, Paroxysmal atrial fibrillation, Vasomotor rhinitis, Emphysema, (implantable) cardiac defibrillator, Pulmonary hypertension due to lung diseases and hypoxia, Hypertensive heart disease with heart failure, Chronic systolic (congestive) heart failure, Hypercholesterolemia, History of pacemaker, Blindness of right eye, Cardiomyopathy. He had PCI in 1999. When he presented to [facility] on January 01, 2021 he had progressively worsening fatigue and exertional dyspnea and had an elevated heart rate in the 150s. He was found to be in atrial fibrillation with a rapid ventricular response. He had cardioversion at that time but reverted back to atrial fib. On June 11, 2021 he had radiofrequency catheter ablation of the AV junction with implantation of a biventricular ICD device. He had been battling cold for about a week. Normally , [employer] works but not this time. He went to Urgent Care on Thursday. He was diagnosed with pneumonia and started on an azithromycin and Augmentin. He is not feeling any better at all since starting the antibiotics. Cough not improved. denies BLE, fevers, chest pain. He continued to smoke 6 cigarettes a day- as he had been smoking his whole life. In ED: CT scan showed a large pleural effusion. Laboratory studies were obtained which showed a normal CBC CMP was within normal limits troponin was negative BNP was 684 COVID flu and RSV were negative. Differential diagnosis includes pneumonia, CHF, pleural effusion 07/30- pt is seen and examined. he is alert, oriented, in no distress. /- sob still with activity, just feeling bad overall on room air. C/o nausea Repeated chest x-ray. Thoracentesis culture is not negative. Echo is not done but pt wants to go home and f/u as an outpt to repeat echo. Status at Discharge Functional status at discharge: independent ambulation Overall status at discharge: patient is progressing back to baseline Time Spent with Patient Time attestation: Total time spent providing and/or coordinating discharge services: Time spent: Greater than 30 minutes Exam Const: General: comfortable Resp: Effort & Inspection: normal respiratory effort Cardio: Rate: regular rate Rhythm: regular rhythm DS: Data Data Completed and Pending Completed studies during hospitalization: thoracentesis Labs on day of discharge: Labs from last 24 hours 07/30/24 10:54 Pleural Fluid Source Pleural fluid Pleural Color Red Pleural Appearance Hazy Pleural pH > 7.500 H Pleural RBC 90972 H Pleural Nuc Cells 2661 H Pleural Neutrophils 10 Pleural Lymphocytes 82 Pleural Macrophages 5 Pleural Mesothelial 3 Discharge Plan Discharge Attending physician on discharge: Edward Dempsey Discharging Clinician: May Allen Patient Disposition: Home, Self-Care Activity: november shower Diet: as tolerated and heart healthy Discharge Instructions: you were admitted for sob. Thoracentesis was done and about 1 l was drained- so far no bacteria was found in that fluids. We will send you home on antibiotics. please take as directed. Zithromax and cefdinir. We ordered repeated Echo but it was not done- you chose to be discharged and f/u as an oupt with your PCP or cardiology tp have it repeated. Please take your heart medications as directed per cardiology. If you start feeling worse- shortness of breath, chest pain, any new/worsening symptoms- please come back to ER. Patient Instructions: Antibiotic Form Patient Language: Cameroonian Stand Alone Forms: General Discharge Information Follow-up/Referrals: Tao Jeffers MD [Primary Care Provider] - 1 Week Discharge Medications: New azithromycin 250 mg tablet 250 mg PO DAILY 3 Days Qty: 3 0RF cefdinir 300 mg capsule 300 mg PO Q12H Qty: 7 0RF Continued Entresto 49-51 mg tablet 1 tablet PO BID ipratropium bromide 21 mcg (0.03 %) spray,non-aerosol 2 spray intranasal BID Qty: 30 1RF polyethylene glycol 3350 [Miralax] 17 gram/dose Powder 17 g PO DAILY Zyrtec 10 mg Capsule 10 mg PO DAILY aspirin 81 mg Tablet,Delayed Release (Dr/Ec) 81 mg PO QAM Qty: 30 0RF atorvastatin 40 mg Tablet 80 mg PO DAILY Qty: 30 3RF Eliquis 5 mg Tablet 5 mg PO BID metoprolol succinate 50 mg Tablet Extended Release 24 Hr 50 mg PO QPM tamsulosin 0.4 mg capsule See Rx Instructions .ROUTE .COMPLEX Qty: 90 1RF Dose Instruction: TAKE 1 CAPSULE BY MOUTH EVERY DAY Rx Instructions: TAKE 1 CAPSULE BY MOUTH EVERY DAY furosemide 20 mg tablet See Rx Instructions .ROUTE .COMPLEX Qty: 90 0RF Dose Instruction: TAKE 1 TABLET BY MOUTH EVERY MORNING Rx Instructions: TAKE 1 TABLET BY MOUTH EVERY MORNING Date of admission: 07/30/24 06:00 Primary Care Provider: Tao Jeffers Admitting Provider: Emelia Corona Attending physician on admission: Emelia Corona Condition: Stable Quality VTE Prophylaxis VTE prophylaxis: pharmacologic ordered Hospitalist MIPS Heart Failure (Exclusion) Patient has history of Heart Transplant or Left Ventricular Assistive Device?: No IF YES, STOP HERE Heart Failure (Qualifier) Patient has current or prior documentation of LVEF less than or equal to 40%, or mod/servere depressed LVSF?: Yes IF NO, STOP HERE If Yes, Heart Failure (Qualifier) Patient was prescribed or already taking an Angiotensin-Converting Enzyme (MIGUEL) Inhibitor, or Antiotensin Receptor Marilin (ARB): Yes Patient was prescribed or already taking bisoprolol, carvedilol, or sustained release metoprolol succinate: Yes
== END 2024-07-31 13:10 | disposition home or self-care (01) ==
LOC: ANHED 07-30 05:16 → ANH3MEDSUR 07-31 12:34
PROVIDERS: Physician Assistant; Admitting Provider Internal Medicine; Emergency Provider Emergency Medicine; PCP Family Medicine; Visit Provider General Practice
DX: I11.0 Hypertensive heart disease with heart failure (principal); I50.22 Chronic systolic (congestive) heart failure; J91.8 Pleural effusion in other conditions classified elsewhere; I48.0 Paroxysmal atrial fibrillation; J43.9 Emphysema, unspecified; I27.20 Pulmonary hypertension, unspecified; E78.00 Pure hypercholesterolemia, unspecified; I42.9 Cardiomyopathy, unspecified; H54.40 Blindness, one eye, unspecified eye; J30.0 Vasomotor rhinitis; Z20.822 Contact with and (suspected) exposure to COVID-19; Z87.891 Personal history of nicotine dependence; Z79.01 Long term (current) use of anticoagulants; Z79.82 Long term (current) use of aspirin; Z79.899 Other long term (current) drug therapy; Z95.810 Presence of automatic (implantable) cardiac defibrillator; Z85.038 Personal history of other malignant neoplasm of large intestine
CPT/HCPCS: 32555; 36415; 71045; 71046; 71250; 80053; 82042; 82150; 82945; 83615; 83735; 83880; 83986; 84157; 84311; 84478; 84484; 85025; 85610; 85730; 87070; 87075; 87205; 87637; 89051; 93005; 94640; 96365; 96375; 96376; 99285; A9270; G0378; J0456; J0696